=== PATIENT | male | born 1960 | race Caucasian/White ===

== ENCOUNTER 2018-06-18 21:35 | Outpatient (REF) | payer SELFPAY ==
[2018-06-18 22:22] LABS: ALT 47 U/L (12-78); AST 26 U/L (15-37); Alkaline Phosphatase 77 U/L (46-116); Anion Gap 10.1 mmol/L (3-11); BUN 24 mg/dL (7-18); CO2 26.9 mmol/L (21.0-32.0); CREATININE 0.89 mg/dL (0.70-1.30); Calcium 8.9 mg/dL (8.5-10.1); Chloride 103 mmol/L (98-107); Cholesterol 207 mg/dL (50-200); Glucose 129 mg/dL (70-100); HDL Cholesterol 41 mg/dL (40-60); LDL CHOLESTEROL 149 mg/dL (<100); Potassium 3.9 mmol/L (3.5-5.1); Sodium 140 mmol/L (136-145); Total Protein 7.4 g/dL (6.4-8.2); Triglyceride 91 mg/dL (30-150)
== END 2018-06-18 21:55 ==
LOC: NCHCN 21:35
PROVIDERS: PCP Specialist/Technologist Athletic Trainer; Visit Provider Physician Assistant Medical
DX: R73.01 Impaired fasting glucose (principal); I10 Essential (primary) hypertension
CPT/HCPCS: 80053; 80061; 83721

== ENCOUNTER 2021-02-03 21:49 | Outpatient (REF) | payer SELFPAY ==
[2021-02-03 21:13] LABS: Hemoglobin A1C 5.7 % (<5.7)
[2021-02-03 21:19] LABS: ALT 43 U/L (16-63); AST 40 U/L (15-37); Albumin 2.4 g/dL (3.4-5.0); Alkaline Phosphatase 84 U/L (46-116); Anion Gap 9.2 mmol/L (3-11); BUN 18 mg/dL (7-18); Bilirubin, Total 0.4 mg/dL (0.2-1.0); CO2 26.8 mmol/L (21.0-32.0); CREATININE 0.9 mg/dL (0.70-1.30); Calcium 8.8 mg/dL (8.5-10.1); Chloride 103 mmol/L (98-107); Glucose 85 mg/dL (74-106); Magnesium 1.9 mg/dL (1.8-2.4); Potassium 3.8 mmol/L (3.5-5.1); Sodium 139 mmol/L (136-145); Total Protein 5.8 g/dL (6.4-8.2)
== END 2021-02-03 21:50 | disposition home or self-care (01) ==
LOC: NCHCN 21:49
PROVIDERS: PCP Specialist/Technologist Athletic Trainer; Visit Provider Physician Assistant Medical
DX: I10 Essential (primary) hypertension (principal); R73.01 Impaired fasting glucose
CPT/HCPCS: 80053; 83036; 83735

== ENCOUNTER 2021-03-08 15:09 | Outpatient (REF) | payer SELFPAY ==
[2021-03-08 19:24] LABS: Abs Immature Grans 0.07 10^3/uL (0.0-0.06); Absolute Basophil Count 0.13 10^3/uL (0.0-0.2); Absolute Eosinophil Count 0.23 10^3/uL (0.0-0.7); Absolute Lymphocyte Count 2.04 10^3/uL (1.2-3.4); Absolute Monocyte Count 1.14 10^3/uL (0.1-0.8); Absolute Neutrophil Count 10.59 10^3/uL (1.2-6.7); Basophils % 0.9; Eosinophils % 1.6; HCT 53.5 % (40.0-50.0); HGB 17.7 g/dL (13.5-17.5); Immature Grans % 0.5; Lymphocytes % 14.4; MCH 29.6 pg (27.0-33.0); MCHC 33.1 % (32.0-36.0); MCV 89.6 fL (80-95); MPV 11.1 fL (8.0-11.0); Neutrophils % 74.6; Nucleated RBC 0 %; Platelet Count 372 10^3/uL (130-400); RBC 5.97 10^6/uL (4.36-5.78); RDW 13.3 % (11.8-14.1); RDW-SD 43.8 fL; WBC 14.19 10^3/uL (4.4-10.8)
[2021-03-08 20:01] LABS: ALT 36 U/L (16-63); AST 39 U/L (15-37); Alkaline Phosphatase 78 U/L (46-116); Anion Gap 7.6 mmol/L (3-11); BUN 14 mg/dL (7-18); Bilirubin, Total 0.7 mg/dL (0.2-1.0); CO2 27.4 mmol/L (21.0-32.0); CREATININE 0.8 mg/dL (0.70-1.30); Calcium 8.5 mg/dL (8.5-10.1); Chloride 108 mmol/L (98-107); Glucose 165 mg/dL (74-106); Potassium 4.3 mmol/L (3.5-5.1); Sodium 143 mmol/L (136-145); Total Protein 5.3 g/dL (6.4-8.2)
[2021-03-10 17:01] LABS: COVID-19 RT-PCR UVMMC Result Negative (Negative)
== END 2021-03-08 15:10 | disposition home or self-care (01) ==
LOC: NCHCN 15:09
PROVIDERS: PCP Specialist/Technologist Athletic Trainer; Visit Provider Physician Assistant Medical
DX: Z20.822 Contact with and (suspected) exposure to COVID-19 (principal); R05.9 Cough, unspecified; R53.83 Other fatigue; E88.09 Other disorders of plasma-protein metabolism, not elsewhere classified
CPT/HCPCS: 80053; U0003; 85025

== ENCOUNTER 2021-03-24 08:43 | Outpatient (REF) | payer SELFPAY ==
[2021-03-25 13:53] LABS: Bilirubin Negative (Negative); Blood Trace-intact (Negative); Clarity Clear (Clear); Glucose Negative (Negative); Ketones Negative (Negative); Leukocyte Esterase Negative (Negative); Nitrite Negative (Negative); Specific Gravity 1.025 (1.005-1.025); Urobilinogen 0.2 EU/dL (Up TO 0.2)
== END 2021-03-24 08:44 | disposition home or self-care (01) ==
LOC: NCHCN 08:43
PROVIDERS: PCP Specialist/Technologist Athletic Trainer; Visit Provider Physician Assistant Medical
DX: E88.09 Other disorders of plasma-protein metabolism, not elsewhere classified (principal)
CPT/HCPCS: 81003; 81015

== ENCOUNTER 2021-05-12 02:21 | Outpatient (CLI) | payer SELFPAY ==
[2021-05-12 07:59] LABS: Bilirubin Negative (Negative); Blood Small (Negative); Clarity Clear (Clear); Glucose Negative (Negative); Ketones Negative (Negative); Leukocyte Esterase Negative (Negative); Nitrite Negative (Negative); Specific Gravity >= 1.030 (1.005-1.025); Urobilinogen 0.2 EU/dL (Up TO 0.2)
[2021-05-12 08:00] LABS: Absolute Basophil Count 0.14 10^3/uL (0.0-0.2); Absolute Eosinophil Count 0.44 10^3/uL (0.0-0.7); Absolute Lymphocyte Count 2.36 10^3/uL (1.2-3.4); Absolute Monocyte Count 1.21 10^3/uL (0.1-0.8); Basophils % 1.2; Eosinophils % 3.8; HCT 52.9 % (40.0-50.0); HGB 17.3 g/dL (13.5-17.5); Immature Grans % 0.9; Lymphocytes % 20.3; MCH 29.8 pg (27.0-33.0); MCHC 32.7 % (32.0-36.0); MPV 9.7 fL (8.0-11.0); Monocytes % 10.4; Neutrophils % 63.4; Nucleated RBC 0 %; Platelet Count 388 10^3/uL (130-400); RBC 5.81 10^6/uL (4.36-5.78); RDW 13.3 % (11.8-14.1); RDW-SD 45.1 fL; WBC 11.64 10^3/uL (4.4-10.8)
[2021-05-12 08:01] LABS: Absolute Neutrophil Count 7.38 10^3/uL (1.2-6.7)
[2021-05-12 08:11] LABS: Bacteria Rare HPF (Negative); C & S Indicated? No; Casts Negative LPF (Negative); Crystals Negative HPF (Negative); Epithelial Cells Rare HPF (Negative); Mucus Trace (Negative); WBC 0-2 HPF (0-5)
[2021-05-12 08:18] LABS: Hemoglobin A1C 5.4 % (<5.7)
[2021-05-12 09:54] LABS: ALT 39 U/L (16-63); AST 34 U/L (15-37); Albumin 1.8 g/dL (3.4-5.0); Alkaline Phosphatase 82 U/L (46-116); Anion Gap 4.9 mmol/L (3-11); BUN 18 mg/dL (7-18); Bilirubin, Total 0.4 mg/dL (0.2-1.0); CO2 30.1 mmol/L (21.0-32.0); CREATININE 1.1 mg/dL (0.70-1.30); Calcium 8.4 mg/dL (8.5-10.1); Chloride 104 mmol/L (98-107); Folate 9.7 ng/mL (8.6-20.0); Glucose 109 mg/dL (74-106); Magnesium 1.9 mg/dL (1.8-2.4); Potassium 4.7 mmol/L (3.5-5.1); Sodium 139 mmol/L (136-145); Total Protein 5.3 g/dL (6.4-8.2); Vitamin B12 566 pg/mL (193-986)
[2021-05-12 10:20] LABS: FREE T4 1.01 ng/dL (0.76-1.46)
[2021-05-12 16:59] LABS: CRP, High Sensitivity 1.92 mg/L (See Note)
[2021-05-12 17:16] LABS: T3,Free 4.3 pg/mL (2.8-5.3)
[2021-05-13 17:01] LABS: Lipoprotein (a) 184 nmol/L (<75)
[2021-05-14 11:03] LABS: Homocysteine 10.2 umol/L (5.0-13.9)
== END 2021-05-12 02:22 | disposition home or self-care (01) ==
LOC: LBO 02:28
PROVIDERS: PCP Specialist/Technologist Athletic Trainer; Visit Provider Naturopath
DX: E78.5 Hyperlipidemia, unspecified (principal); R00.0 Tachycardia, unspecified; R25.2 Cramp and spasm; R31.29 Other microscopic hematuria
CPT/HCPCS: 36415; 80053; 83090; 83695; 86141; 81003; 81015; 82607; 82746; 83036; 83735; 84439; 84443; 84481; 85025

== ENCOUNTER 2021-07-19 09:32 | Outpatient (REF) | payer SELFPAY | END 2021-07-19 09:33 | disposition home or self-care (01) | LOC: LBN 09:32 | PROVIDERS: PCP Specialist/Technologist Athletic Trainer; Visit Provider Naturopath ==

== ENCOUNTER 2021-07-19 10:37 | Outpatient (CLI) | payer SELFPAY ==
[2021-07-19 15:19] LABS: HCT 51.3 % (40.0-50.0); MCH 29.8 pg (27.0-33.0); MCHC 33.1 % (32.0-36.0); MCV 89.8 fL (80-95); MPV 9.9 fL (8.0-11.0); Platelet Count 374 10^3/uL (130-400); RBC 5.71 10^6/uL (4.36-5.78); RDW 13.6 % (11.8-14.1); RDW-SD 45.1 fL; WBC 15.32 10^3/uL (4.4-10.8)
[2021-07-19 15:25] LABS: Bilirubin Negative (Negative); Blood Trace-intact (Negative); Clarity Clear (Clear); Glucose Negative (Negative); Ketones Negative (Negative); Leukocyte Esterase Negative (Negative); Nitrite Negative (Negative); Specific Gravity >= 1.030 (1.005-1.025); Urobilinogen 0.2 EU/dL (Up TO 0.2); pH 6.5 (5-8)
[2021-07-19 15:37] LABS: Bacteria Few HPF (Negative); Epithelial Cells Few HPF (Negative)
[2021-07-19 15:38] LABS: C & S Indicated? Yes; Casts Negative LPF (Negative); Crystals Negative HPF (Negative); Mucus Negative (Negative)
[2021-07-19 15:39] LABS: Prothrombin Time 10.4 sec (9.3-11.0)
[2021-07-19 16:00] LABS: D-Dimer 853 ng/mlFEU (<500)
[2021-07-19 17:31] LABS: ALT 29 U/L (16-63); AST 28 U/L (15-37); Albumin 1.7 g/dL (3.4-5.0); Alkaline Phosphatase 96 U/L (46-116); Anion Gap 5.1 mmol/L (3-11); BUN 21 mg/dL (7-18); Bilirubin, Total 0.2 mg/dL (0.2-1.0); CO2 29.9 mmol/L (21.0-32.0); CREATININE 0.9 mg/dL (0.70-1.30); Calcium 8.3 mg/dL (8.5-10.1); Chloride 107 mmol/L (98-107); Glucose 87 mg/dL (74-106); Potassium 4.7 mmol/L (3.5-5.1); Sodium 142 mmol/L (136-145); Total Protein 5.1 g/dL (6.4-8.2)
[2021-07-19 17:42] LABS: Creatinine,Urine 80.78 mg/dL
[2021-07-19 17:44] LABS: Bilirubin, Direct 0.1 mg/dL (0.0-0.2)
[2021-07-19 17:49] LABS: CREATININE 0.9 mg/dL (0.70-1.30); Total Volume 2400 ml
[2021-07-19 17:50] LABS: Creatinine Clearance Urine 150 mls/min (97-137)
[2021-07-19 17:54] LABS: Total Volume 2400 ml
[2021-07-19 17:55] LABS: COMMENT (LAB VIEW ONLY) 79.01 mg/dL; PROTEIN 536.6 mg/dL; Prot/Crea Ur Ratio 6.79
[2021-07-21 10:03] LABS: C3 Complement 125 mg/dL (81-157); C4 Complement 33 mg/dL (13-39)
[2021-07-21 15:31] LABS: ANA Interpretation Negative (Negative)
[2021-07-21 15:38] LABS: Albumin Excretion Rate 5239 mcg/min (<20); Albumin, 24hr, U 7545 mg/24 h (<30); Urine Volume 2400 mL
[2021-07-21 15:53] LABS: Albumin 45.6 % (55.8-66.1); Comment (See Note); Total Protein 5.1 g/dL (6.3-8.2)
[2021-07-21 15:54] LABS: Albumin, Urine % 68.4 %; Globulins, Urine % 31.6 %; Immunotyping, Urine (See Note); Total Protein Urine 808 mg/dL (See Note)
[2021-07-21 16:36] LABS: Immunotyping, Serum (See Note)
== END 2021-07-19 10:38 | disposition home or self-care (01) ==
LOC: LBO 10:38
PROVIDERS: PCP Specialist/Technologist Athletic Trainer; Visit Provider Naturopath
DX: N04.9 Nephrotic syndrome with unspecified morphologic changes (principal)
CPT/HCPCS: 36415; 80048; 80076; 84156; 84166; 85027; 86335; 81003; 81015; 81050; 82043; 82565; 82575; 84155; 84165; 85379; 85610; 86038; 86160; 86320; 87086

== ENCOUNTER 2021-07-27 04:42 | Outpatient (CLI) | payer SELFPAY ==
[2021-07-27 09:09] LABS: PROTEIN 529.3 mg/dL; Prot/Crea Ur Ratio 5.53
[2021-07-27 10:23] LABS: ALT 33 U/L (16-63); AST 36 U/L (15-37); Albumin 1.6 g/dL (3.4-5.0); Alkaline Phosphatase 78 U/L (46-116); Anion Gap 4.4 mmol/L (3-11); BUN 27 mg/dL (7-18); Bilirubin, Direct 0.1 mg/dL (0.0-0.2); Bilirubin, Total 0.4 mg/dL (0.2-1.0); CO2 30.6 mmol/L (21.0-32.0); Calcium 8.4 mg/dL (8.5-10.1); Chloride 105 mmol/L (98-107); Glucose 102 mg/dL (74-106); Potassium 4.6 mmol/L (3.5-5.1); Sodium 140 mmol/L (136-145)
== END 2021-07-27 04:43 | disposition home or self-care (01) ==
PROVIDERS: PCP Specialist/Technologist Athletic Trainer; Visit Provider Internal Medicine Nephrology
DX: N04.9 Nephrotic syndrome with unspecified morphologic changes (principal)
CPT/HCPCS: 36415; 80048; 80076; 82565; 84156

== ENCOUNTER 2021-08-02 02:50 | Outpatient (CLI) | payer SELFPAY ==
[2021-08-02 11:44] LABS: COMMENT (LAB VIEW ONLY) 47.43 mg/dL; PROTEIN 297.4 mg/dL; Prot/Crea Ur Ratio 6.27
[2021-08-02 12:27] LABS: ALT 32 U/L (16-63); AST 32 U/L (15-37); Albumin 1.6 g/dL (3.4-5.0); Alkaline Phosphatase 75 U/L (46-116); Anion Gap 5.9 mmol/L (3-11); BUN 23 mg/dL (7-18); Bilirubin, Direct 0.1 mg/dL (0.0-0.2); Bilirubin, Total 0.5 mg/dL (0.2-1.0); CO2 29.1 mmol/L (21.0-32.0); CREATININE 0.9 mg/dL (0.70-1.30); Calcium 8.4 mg/dL (8.5-10.1); Chloride 104 mmol/L (98-107); Glucose 98 mg/dL (74-106); Potassium 4.7 mmol/L (3.5-5.1); Sodium 139 mmol/L (136-145); Total Protein 4.9 g/dL (6.4-8.2)
== END 2021-08-02 02:51 | disposition home or self-care (01) ==
LOC: LBO 02:50
PROVIDERS: PCP Specialist/Technologist Athletic Trainer; Visit Provider Internal Medicine Nephrology
DX: N04.9 Nephrotic syndrome with unspecified morphologic changes (principal)
CPT/HCPCS: 36415; 80048; 80076; 82565; 84156

== ENCOUNTER 2021-08-09 02:42 | Outpatient (CLI) | payer SELFPAY ==
[2021-08-09 08:48] LABS: D-Dimer 1351 ng/mlFEU (<500)
[2021-08-09 08:50] LABS: COMMENT (LAB VIEW ONLY) 40.77 mg/dL; PROTEIN 227.3 mg/dL; Prot/Crea Ur Ratio 5.57
[2021-08-09 08:55] LABS: ALT 35 U/L (16-63); AST 34 U/L (15-37); Albumin 1.5 g/dL (3.4-5.0); Alkaline Phosphatase 84 U/L (46-116); Anion Gap 4.6 mmol/L (3-11); BUN 21 mg/dL (7-18); Bilirubin, Direct 0.1 mg/dL (0.0-0.2); Bilirubin, Total 0.5 mg/dL (0.2-1.0); CO2 30.4 mmol/L (21.0-32.0); Calcium 8.2 mg/dL (8.5-10.1); Chloride 104 mmol/L (98-107); Glucose 108 mg/dL (74-106); Potassium 4.4 mmol/L (3.5-5.1); Sodium 139 mmol/L (136-145); Total Protein 4.9 g/dL (6.4-8.2)
== END 2021-08-09 02:43 | disposition home or self-care (01) ==
LOC: LBO 02:43
PROVIDERS: Naturopath; PCP Specialist/Technologist Athletic Trainer; Visit Provider Internal Medicine Nephrology
DX: R79.1 Abnormal coagulation profile (principal); N04.9 Nephrotic syndrome with unspecified morphologic changes
CPT/HCPCS: 36415; 80048; 80076; 82565; 84156; 85379

== ENCOUNTER 2021-08-17 05:11 | Outpatient (CLI) | payer SELFPAY ==
[2021-08-17 13:26] LABS: ALT 34 U/L (16-63); AST 32 U/L (15-37); Albumin 1.5 g/dL (3.4-5.0); Alkaline Phosphatase 83 U/L (46-116); BUN 14 mg/dL (7-18); Bilirubin, Direct 0.1 mg/dL (0.0-0.2); Bilirubin, Total 0.6 mg/dL (0.2-1.0); COMMENT (LAB VIEW ONLY) 43.72 mg/dL; CREATININE 0.9 mg/dL (0.70-1.30); Calcium 8.1 mg/dL (8.5-10.1); Chloride 104 mmol/L (98-107); Glucose 87 mg/dL (74-106); PROTEIN 260.8 mg/dL; Potassium 4.5 mmol/L (3.5-5.1); Prot/Crea Ur Ratio 5.96; Sodium 138 mmol/L (136-145); Total Protein 4.7 g/dL (6.4-8.2)
== END 2021-08-17 05:12 | disposition home or self-care (01) ==
PROVIDERS: PCP Specialist/Technologist Athletic Trainer; Visit Provider Internal Medicine Nephrology
DX: N04.9 Nephrotic syndrome with unspecified morphologic changes (principal)
CPT/HCPCS: 36415; 80048; 80076; 82565; 84156

== ENCOUNTER 2021-08-23 14:40 | Outpatient (CLI) | payer SELFPAY ==
[2021-08-24 09:23] LABS: Kappa Free Light Chain 2.64 mg/dL (0.33-1.94); Lambda Free Light Chain 7.07 mg/dL (0.57-2.63)
== END 2021-08-23 14:41 | disposition home or self-care (01) ==
PROVIDERS: PCP Specialist/Technologist Athletic Trainer; Visit Provider Internal Medicine Nephrology
DX: N04.9 Nephrotic syndrome with unspecified morphologic changes (principal)
CPT/HCPCS: 36415; 83883

== ENCOUNTER 2021-08-30 14:34 | Outpatient (REF) | payer SELFPAY ==
[2021-08-30 15:00] LABS: INR 1.1 (0.9-1.1); Prothrombin Time 10.9 sec (9.3-11.0)
[2021-08-30 15:19] LABS: ALT 31 U/L (16-63); AST 30 U/L (15-37); Albumin 1.5 g/dL (3.4-5.0); Alkaline Phosphatase 90 U/L (46-116); Anion Gap 4.8 mmol/L (3-11); BUN 21 mg/dL (7-18); Bilirubin, Direct 0.1 mg/dL (0.0-0.2); Bilirubin, Total 0.3 mg/dL (0.2-1.0); CO2 29.2 mmol/L (21.0-32.0); CREATININE 1.1 mg/dL (0.70-1.30); Chloride 105 mmol/L (98-107); Glucose 116 mg/dL (74-106); Potassium 4.1 mmol/L (3.5-5.1); Sodium 139 mmol/L (136-145); Total Protein 4.8 g/dL (6.4-8.2)
[2021-08-30 15:28] LABS: D-Dimer 1576 ng/mlFEU (<500)
[2021-08-30 15:43] LABS: PROTEIN > 1000.0 mg/dL
== END 2021-08-30 14:35 | disposition home or self-care (01) ==
LOC: LBO 14:34
PROVIDERS: PCP Specialist/Technologist Athletic Trainer; Visit Provider Naturopath
DX: E85.81 Light chain (AL) amyloidosis (principal); Z51.81 Encounter for therapeutic drug level monitoring
CPT/HCPCS: 80048; 80076; 82565; 84156; 85379; 85610

== ENCOUNTER 2021-09-06 21:57 | Outpatient (REF) | payer SELFPAY ==
[2021-09-06 19:43] LABS: Abs Immature Grans 0.08 10^3/uL (0.0-0.06); Absolute Lymphocyte Count 2.94 10^3/uL (1.2-3.4); Absolute Monocyte Count 1.38 10^3/uL (0.1-0.8); Eosinophils % 4.1; HCT 49.7 % (40.0-50.0); HGB 16.1 g/dL (13.5-17.5); Immature Grans % 0.6; Lymphocytes % 20.2; MCH 29.8 pg (27.0-33.0); MCHC 32.4 % (32.0-36.0); MCV 92 fL (80-95); MPV 10.5 fL (8.0-11.0); Monocytes % 9.5; Neutrophils % 64.6; Platelet Count 377 10^3/uL (130-400); RDW 14.3 % (11.8-14.1); WBC 14.54 10^3/uL (4.4-10.8)
[2021-09-06 19:49] LABS: Absolute Basophil Count 0.15 10^3/uL (0.0-0.2); Absolute Neutrophil Count 9.39 10^3/uL (1.2-6.7)
[2021-09-06 20:00] LABS: ALT 35 U/L (16-63); AST 36 U/L (15-37); Albumin 1.4 g/dL (3.4-5.0); Alkaline Phosphatase 82 U/L (46-116); Anion Gap 3.9 mmol/L (3-11); BUN 24 mg/dL (7-18); Bilirubin, Total 0.3 mg/dL (0.2-1.0); CO2 30.1 mmol/L (21.0-32.0); CREATININE 1.1 mg/dL (0.70-1.30); Calcium 8.1 mg/dL (8.5-10.1); Chloride 106 mmol/L (98-107); Glucose 89 mg/dL (74-106); LDH 255 U/L (85-227); NT-proBNP 1118 pg/mL (<300); Potassium 4.4 mmol/L (3.5-5.1); Sodium 140 mmol/L (136-145); Total Protein 4.7 g/dL (6.4-8.2)
[2021-09-08 13:27] LABS: Albumin 45.6 % (55.8-66.1); Albumin g/dL 2.2 g/dL (3.6-5.2); Total Protein 4.8 g/dL (6.3-8.2)
[2021-09-08 14:01] LABS: Beta-2-Microglobulin 2.69 mcg/mL
== END 2021-09-06 21:58 | disposition home or self-care (01) ==
LOC: NCHCN 21:57
PROVIDERS: PCP Specialist/Technologist Athletic Trainer; Visit Provider Physician Assistant Medical
DX: E85.9 Amyloidosis, unspecified (principal); I44.7 Left bundle-branch block, unspecified; Z79.01 Long term (current) use of anticoagulants; R80.9 Proteinuria, unspecified
CPT/HCPCS: 80053; 82232; 83615; 83880; 84165; 85025

== ENCOUNTER 2021-09-07 02:27 | Outpatient (CLI) | payer SELFPAY ==
[2021-09-07 15:25] LABS: Troponin I 72 ng/L (<or=60)
[2021-09-08 15:28] LABS: Albumin, Urine % 76.5 %; Albumin, Urine mg/dL 805 mg/dL; Globulins, Urine % 23.5 %; Globulins, Urine mg/dL 247 mg/dL; Immunotyping, Urine (See Note); Total Protein Urine 1052 mg/dL (See Note)
== END 2021-09-07 02:28 | disposition home or self-care (01) ==
PROVIDERS: PCP Specialist/Technologist Athletic Trainer; Visit Provider Physician Assistant Medical
DX: I44.7 Left bundle-branch block, unspecified (principal); R80.9 Proteinuria, unspecified; E85.9 Amyloidosis, unspecified; Z79.01 Long term (current) use of anticoagulants
CPT/HCPCS: 36415; 84156; 84166; 86335; 84484

== ENCOUNTER → 2021-10-14 02:07 | Outpatient (CLI) | payer SELFPAY ==
--- NOTE | 2021-10-14 14:00 | DI.US_ITS ---
APPROVED REPORT EXAM: Comprehensive 2D, Doppler, and color-flow Echocardiogram Patient Location: [facility]Patient Mill Set Up: Nano [facility]CS (AE) Indications: Amyloid Light chain nephropathy, Other Information Study Quality: Adequate Conclusion Normal left ventricular wall thickness and chamber size. Estimated ejection fraction is 60%. Wall m otion is normal Normal right ventricular size and systolic function Both atria are normal in size There is no structural or hemodynamically significant valvular disease Dilated ascending aorta measuring 4.25 cm Wall motion Left Ventricle The left ventricle is normal size. The left ventricular systolic function is normal. The left ventric ular ejection fraction is within the normal range. There is normal left ventricular wall thickness. T here is normal LV segmental wall motion. There is no ventricular septal defect visualized. LVEF is 60 %. Right Ventricle Right ventricle is grossly normal in size. Right ventricular systolic function is grossly normal. Atria The left atrium size is normal. The right atrium size is normal. The interatrial septum is intact wit h no evidence for an atrial septal defect. Aortic Valve The aortic valve is normal in structure. Aortic valve is trileaflet. There is no aortic valvular sten osis. There is no aortic valvular stenosis. No aortic regurgitation is present. Mitral Valve The mitral valve is normal in structure. No evidence of mitral valve stenosis. Trace mitral regurgita tion. Tricuspid Valve The tricuspid valve is normal in structure. There is no tricuspid valve stenosis. Trace tricuspid reg urgitation. Unable to assess PA pressure. Pulmonic Valve The pulmonary valve is normal in structure. There is no pulmonic valvular stenosis. There is no pulmo cathi valvular regurgitation. Great Vessels The aortic root is normal in size. The ascending aorta is moderately dilated. Aortic arch is normal i n caliber. IVC is normal in size and collapses >50% with inspiration. Pericardium There is no pericardial effusion. 2D Dimensions IVSD d PLAX 1.21 cm M: 0.6-1.2 LV Vol A2C d MOD 143.4 mL LVPW d PLAX 1.21 cm M: 0.6 - 1.2 LV Vol A4C d MOD 109.5 mL LVID d PLAX 4.85 cm M: 4.2 - 5.8 LA vol/ BSA A2C s A-L 29.2 mL/m2 LVDs 3.30 cm M: 2.5 - 4.0 LA vol/ BSA A4C s A-L 12.1 mL/m2 Ao Root d 3.58 cm M: 3.1 - 3.7 LA Vol/ BSA Biplane s A-L 21.4 mL/m2 RA Area A4C 15.55 cm2 LA Area A4C s MOD 11.85 cm2 RA Vol/ BSA A4C s A-L 15.4 mL/m2 LA Area A2C s MOD 21.01 cm2 Ao Asc Diam d 4.25 cm M: 2.6 - 3.4 LV EF A4C MOD 60.6 % LV EF Teichholz 58.8 % LV EF A2C MOD 58.4 % LVEF (Arevalo's) 58.95 % M: 52 - 72 LV EF Biplane MOD 58.9 % LV Volume 90.19 mL M: 62 - 150 SV 74.52 mL LV Volume Index 38.54 mL/m2 M: 34 - 74 SV Index 31.81 mL/m2 LV Vol Biplane MOD 126.4 mL FS 31.15 % M-Mode TAPSE 1.77 cm (M/F) >1.7 LV Diastology MV E' medial 0.093 (>0.07 m/s) MV E' lateral 0.059 (>0.1 m/s) Aortic Valve LVOT Area 3.40 cm2 AoV Area Vmax 2.51 cm2 LVOT Vmax 1.24 m/s AoV Area/ BSA (Vmax) 1.07 cm2/m2 LVOT Mean Philippe. 0.82 m/s AURELIO Mean Philippe. 2.24 cm2 LVOT Peak Grad 6.1 mmHg AURELIO Mean Philippe. Index 0.96 cm2/m2 LVOT Mean Grad 3.1 mmHg LVOT VTI 0.230 m LVOT Diam s 2.05 cm AoV Vmax 1.67 m/s Velocity Ratio 0.74 AoV Mean Philippe. 1.24 m/s AoV Peak Grad 11.2 mmHg LVOT SV 78.18 mL AoV Mean Grad 6.7 mmHg AoV VTI 0.277 m AoV Area VTI 2.82 cm2 AoV Area/ BSA (VTI) 1.20 cm/m2 Mitral Valve MV VTI 0.165 m MV Area VTI 4.75 (4.0-6.0 cm2) Pulmonary Valve PV Vmax 1.28 (0.5-1.5 m/s) RVOT Peak Gr. 3.21 mmHg PV Peak Grad 6.5 mmHg RVOT Mean Gr. 1.35 mmHg PV Mean Grad 3.3 mmHg RVOT VTI 0.136 m PV VTI 0.207 m RVOT Vmax 0.90 m/s
--- NOTE | 2021-10-14 15:00 | DI.RAD_ITS ---
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 COMPARISON: No exams were available for comparison FINDINGS: MEDIASTINUM: Normal. HEART: Normal. PULMONARY VASCULATURE: Normal. LUNGS: Clear. PLEURAL SPACE: No pleural effusion or pneumothorax. BONE:Unremarkable for age. IMPRESSION: No acute abnormality. DATA REPOSITORY: RADIATION DOSE DELIVERED:
== END ==
PROVIDERS: PCP Specialist/Technologist Athletic Trainer; Visit Provider Internal Medicine Hematology & Oncology
DX: E85.81 Light chain (AL) amyloidosis (principal)
CPT/HCPCS: 71046; 93306

== ENCOUNTER 2022-01-06 13:31 | Inpatient (IN) | payer SELFPAY ==
[2022-01-06] VITALS (88 sets, daily range): BP systolic 111–155; BP diastolic 67–97; PULSE 88–115; RESP 14–35; TEMP 37.1–38.7; O2SAT 92–96
--- NOTE | 2022-01-06 13:30 | RT.EKG_ITS ---
APPROVED REPORT Exam: Resting ECG Reason for Exam: chest pain Patient Location: E HR:108 bpm ECG Measurements Heart Rate 108 AXIS NJ 188 P 10 QRSd 132 QRS -10 QT 362 T 171 QTc 485 Conclusion Sinus tachycardia...rate> 99 Left bundle branch block...QRSd>120, broad/notched R ST elevation secondary to IVCD...Multiple VCG criteria. Sinus. LBBB. No old EKG to compare.
--- NOTE | 2022-01-06 14:00 | DI.CT_ITS ---
Exam(s) CT CHEST PE CTA EXAM: CT CHEST PE CTA CLINICAL HISTORY: recent covid, sob, right chest pain. TECHNIQUE: Imaging Protocol: CT angiography of the chest was performed using pulmonary embolus shaylee col. Multi planar reconstructions were performed. CONTRAST MATERIAL: Intravenous: Omnipaque 350 Contrast volume: 85 cc COMPARISON: No exams were available for comparison FINDINGS: CHEST: PULMONARY ARTERIES: There is significant intraluminal filling defect in right lower lobe pulmonary ar marni consistent with acute pulmonary embolus. There is some infiltrate and volume loss distally at t his level. Also small right pleural effusion. There is also a similar size small left pleural effus ion and atelectasis in both lung bases. There are no obvious filling defects in left lung pulmonary arteries. LUNGS: As above.. Small bilateral pleural effusions. MEDIASTINUM: There is no hilar nor mediastinal adenopathy. Visualized thyroid unremarkable. CARDIAC: Heart size is upper normal. There is no pericardial effusion.Caliber of the thoracic aorta is within normal limits. No dissection. Ventricular ratio is 1/1. there is no contrast reflux into t he intrahepatic IVC. PARTIALLY VISUALIZED UPPERMOST ABDOMEN: Small hypodense benign-appearing 1 cm nodule in the lateral l imb of the left adrenal gland noted. This is probably a benign adenoma. Right adrenal gland unremar kable. No splenomegaly. OSSEOUS: No significant osseous lesions.Benign intraosseous hemangioma is noted in what appears to be T11 or T12 vertebral body. No fractures.. IMPRESSION: 1. Positive for acute pulmonary emboli in right lower lobe pulmonary artery..Some infiltrate and volu me loss distal to this as well as small pleural effusion. 2. Small pleural effusion also seen on the opposite-left side. No obvious pulmonary embolus on the l eft side. 3. Ventricular ratio is 1: 1. Other findings as above. Study 1st read by [facility]. Final report called by myself to the ER physician 01/07/2022 8:45 a.m.. Unexpected Findings as noted above. An unexpected finding is one that is unexpected and non-urgent wi th regard to the clinical indication for the examination but will come with a radiologist recommendat ion for follow up. Critical findings as dealt with above. RADIATION DOSE DELIVERED: 575.37mGy.cm Total DLP DATA REPOSITORY: All CT scans at this facility are submitted to the National Radiology Data Registry (NRDR) Dose Index Registry (DIR) with the [employer] (ACR). RADIATION OPTIMIZATION: All CT scans at this facility use at least one of these dose optimization te chniques: automated exposure control; mA and/or kV adjustment per patient size (includes targeted exa ms where dose is matched to clinical indication); or iterative reconstruction.
--- NOTE | 2022-01-06 14:00 | RT.EKG_ITS ---
APPROVED REPORT Exam: Resting ECG Reason for Exam: chest pain Patient Location: E HR:115 bpm ECG Measurements Heart Rate 115 AXIS MS 152 P -45 QRSd 132 QRS -8 QT 384 T 155 QTc 533 Conclusion Sinus or ectopic atrial tachycardia...P axis (-45,135), rate> 99 Left bundle branch block...QRSd>120, broad/notched R Probable anterolateral infarct, age indeterm...Q >35mS, T neg, V2-V6,I,aVL. Sinus. LBBB. No significant change from previous EKG.
[2022-01-06 14:29] LABS: Lactate 1.1 mmol/L (0.6-1.4)
[2022-01-06 14:30] LABS: Abs Immature Grans 0.26 10^3/uL (0.0-0.06); Absolute Lymphocyte Count 1.03 10^3/uL (1.2-3.4); Absolute Monocyte Count 2.34 10^3/uL (0.1-0.8); Basophils % 0.3; HCT 39.1 % (40.0-50.0); HGB 13.1 g/dL (13.5-17.5); Immature Grans % 1.4; Lymphocytes % 5.4; MCH 30.9 pg (27.0-33.0); MCHC 33.5 % (32.0-36.0); MCV 92 fL (80-95); MPV 11.2 fL (8.0-11.0); Monocytes % 12.3; Neutrophils % 79.6; Platelet Count 203 10^3/uL (130-400); RBC 4.24 10^6/uL (4.36-5.78); RDW 16.7 % (11.8-14.1); RDW-SD 54.9 fL; WBC 19.05 10^3/uL (4.4-10.8)
[2022-01-06 14:32] LABS: Absolute Basophil Count 0.06 10^3/uL (0.0-0.2); Absolute Eosinophil Count 0.19 10^3/uL (0.0-0.7); Absolute Neutrophil Count 15.16 10^3/uL (1.2-6.7)
[2022-01-06] MEDS: Albuterol/Ipratropium 3 ML UPD VIAL UPD (14:47)
[2022-01-06] MEDS: Dexamethasone 4 MG/ML VIAL 6 MG IVP (14:47)
[2022-01-06] MEDS: Normal Saline 500 ML IV (14:47)
[2022-01-06] MEDS: fentaNYL 100 MCG/2 ML VIAL 50 MCG IVP (14:50)
[2022-01-06 15:01] LABS: Diff Comment Diff Reviewed; RBC Morphology Normal
[2022-01-06] MEDS: Acetaminophen 500 MG TAB 1000 MG PO (15:09)
--- NOTE | 2022-01-06 15:15 | RT.EKG_ITS ---
APPROVED REPORT Exam: Resting ECG Reason for Exam: chest pain Patient Location: E HR:93 bpm ECG Measurements Heart Rate 93 AXIS NE 198 P 28 QRSd 140 QRS -10 QT 409 T 148 QTc 510 Conclusion Sinus rhythm...normal P axis, V-rate 60- 99 Borderline prolonged NE interval...NE >197, V-rate 91-120 Left bundle branch block...QRSd>120, broad/notched R. Sinus. No STEMi. No significant change from previous EKG.
[2022-01-06] MEDS: cefTRIAXone 2 GM/50 ML BAG IVPB (15:17)
--- NOTE | 2022-01-06 15:22 | ED.GENADUL_ITS ---
Discharge Plan Disposition Patient Disposition: [facility] INPATIENT Condition: Serious Discharge Details Clinical Impression: Elevated troponin, Pneumonia due to COVID-19 virus Admit Date/Time: 01/06/22 19:47 Admit Provider: Stef Gorman Attending Provider: Stef Gorman Primary Care Provider: Johnnie Frost ED Provider: Geeta Marie Discharge Data Discharge Date/Time-TO BE ENTERED AT DEPARTURE: 01/07/22 00:25 Medical Decision Making White blood patient is tachycardic, tachypneic, and has leukocytosis, 19,000 I have initiated ceftriaxone, patient likely has pneumonia and will likely need doxycycline or azithromycin, I suspect this is probably acute community-acquired pneumonia The differential includes pulmonary embolism versus COVID exacerbation He had approximately 2 weeks out from his initial presentation and was actually improved until last evening Pending chemistry patient will go to CTA for further evaluation and assessment He is received normal saline, Tylenol, fentanyl for discomfort, DuoNeb, and Solu-Medrol Reviewed transition to Geeta Duran nurse practitioner pending CTA and disposition Medical Records Medical records reviewed: Yes I reviewed the patient's medical records. Lab Data Lab results reviewed: Yes I reviewed the patient's lab results. HPI General Date/Time Provider Initiated Documentation: 01/06/22 13:49 . HPI Narrative: This 61-year-old male with history of recent diagnosis of amyloidosis receiving chemotherapy from [facility], [facility] presents with reports of shortness of breath and right-sided chest pain. Of note he had COVID-19 and received monoclonal ant ibody approximately 2 weeks ago. He did receive his chemotherapy last Monday. He states last evening he started with fever, chills, and right-sided chest pain with shortness of breath. He states that he was otherwise improving. He denies any new calf pain or swelling. He does have baseline peripheral edema secondary to his amyloidosis. 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 He de nies history of pulmonary embolism in the past but he was told that he was at increased risk for coagulopathy and was on Coumadin for a period of time, he is not currently anticoagulated. He denies any recent surgeries, flights, long drives. Related Data Home Medications Medication Instructions Recorded Confirmed acyclovir 400 mg tablet 1 tab PO BID 01/06/22 01/06/22 dexamethasone 4 mg tablet 40 mg PO QWEEK chemotherapy 01/06/22 01/06/22 montelukast 10 mg tablet 1 tab PO QWEEK 01/06/22 01/06/22 torsemide 10 mg tablet 1 tab PO 1XD 01/06/22 01/06/22 Allergies Allergy/AdvReac Type Severity Reaction Status Date / Time No Known Allergies Allergy Unverified 01/06/22 22:16 General Stated Complaint: RespSymp BETO: 2 Review of Systems All systems reviewed & are unremarkable except as noted in HPI and below PFSH All Active Problems (Updated 01/08/22 @ 17:22 by Chema Conde MD) Pulmonary embolus, right (Acute) COVID-19 (Acute) Community acquired pneumonia (Acute) Amyloidosis (Chronic) Elevated troponin (Acute) Pneumonia due to COVID-19 virus (Acute) Medical History 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 Exam Const General: cooperative and acute distress HENMT Head: normal to inspection Eyes Pupils: PERRL Resp Effort & Inspection: respiratory distress Other: Coarse lung sounds bilaterally Cardio Rate: tachycardic Rhythm: regular rhythm GI Inspection: normal to inspection Other: Nontender abdominal exam Skin General skin exam: no rashes or lesions noted Neuro General: patient alert and patient oriented x3 Extrem Other: peripheral Edema to bilateral lower extremities, nontender, neurovascularly intact Course Vital Signs Vital signs: Vital Signs Temperature 38.7 C H 01/06/22 13:42 Pulse 115 H 01/06/22 13:42 Respiratory Rate 25 H 01/06/22 13:42 Blood Pressure 155/97 H 01/06/22 13:42 Pulse Oximetry 96 01/06/22 13:42 Temperature 38.7 C H 01/06/22 13:42 Temperature Source Oral 01/06/22 13:42 Pulse 115 H 01/06/22 13:42 Respiratory Rate 25 H 01/06/22 13:42 Respiratory Effort 01/06/22 14:50 Respiratory Depth Normal 01/06/22 14:50 Blood Pressure 155/97 H 01/06/22 13:42 Blood Pressure Position Supine 01/06/22 13:42 Pulse Oximetry 96 01/06/22 13:42 Oxygen Delivery Method Room Air 01/06/22 13:42 Oxygen Flow Rate 0 01/06/22 13:42 Pain Level 7 01/06/22 13:42 Lab/Test Results Lab/Test Results: 01/06/22 14:45 Blood Blood Culture - Pending 01/06/22 14:23 Blood Blood Culture - Pending Laboratory Tests Range/Units 01/06/22 01/06/22 01/06/22 14:23 14:23 14:23 WBC (4.4-10.8) 10^3/uL 19.05 H RBC (4.36-5.78) 10^6/uL 4.24 L Hgb (13.5-17.5) g/dL 13.1 L Hct (40.0-50.0) % 39.1 L MCV (80-95) fL 92 MCH (27.0-33.0) pg 30.9 MCHC (32.0-36.0) % 33.5 RDW (11.8-14.1) % 16.7 H Plt Count (130-400) 10^3/uL 203 MPV (8.0-11.0) fL 11.2 H Immature Gran % 1.4 Neutrophils % 79.6 Lymphocytes % 5.4 Monocytes % 12.3 Eosinophils % 1.0 Basophils % 0.3 Nucleated RBC % (0.0-0.3) % 0.0 Absolute Neutrophils (1.2-6.7) 10^3/uL 15.16 H Absolute Lymphocytes (1.2-3.4) 10^3/uL 1.03 L Absolute Monocytes (0.1-0.8) 10^3/uL 2.34 H Absolute Eosinophils (0.0-0.7) 10^3/uL 0.19 Absolute Basophils (0.0-0.2) 10^3/uL 0.06 RBC Morphology Normal VBG Lactate (0.6-1.4) mmol/L 1.1 Sodium Cancelled Potassium Cancelled Chloride Cancelled Carbon Dioxide Cancelled Anion Gap Cancelled BUN Cancelled Creatinine Cancelled Est GFR (CKD-EPI 2020) Cancelled Glucose Cancelled Calcium Cancelled Total Bilirubin Cancelled AST Cancelled ALT Cancelled Alkaline Phosphatase Cancelled Troponin I Total Protein Cancelled Albumin Cancelled Range/Units 01/06/22 14:23 WBC (4.4-10.8) 10^3/uL RBC (4.36-5.78) 10^6/uL Hgb (13.5-17.5) g/dL Hct (40.0-50.0) % MCV (80-95) fL MCH (27.0-33.0) pg MCHC (32.0-36.0) % RDW (11.8-14.1) % Plt Count (130-400) 10^3/uL MPV (8.0-11.0) fL Immature Gran % Neutrophils % Lymphocytes % Monocytes % Eosinophils % Basophils % Nucleated RBC % (0.0-0.3) % Absolute Neutrophils (1.2-6.7) 10^3/uL Absolute Lymphocytes (1.2-3.4) 10^3/uL Absolute Monocytes (0.1-0.8) 10^3/uL Absolute Eosinophils (0.0-0.7) 10^3/uL Absolute Basophils (0.0-0.2) 10^3/uL RBC Morphology VBG Lactate (0.6-1.4) mmol/L Sodium Cancelled Potassium Cancelled Chloride Cancelled Carbon Dioxide Cancelled Anion Gap Cancelled BUN Cancelled Creatinine Cancelled Est GFR (CKD-EPI 2020) Cancelled Glucose Cancelled Calcium Cancelled Total Bilirubin Cancelled AST Cancelled ALT Cancelled Alkaline Phosphatase Cancelled Troponin I Cancelled Total Protein Cancelled Albumin Cancelled Sign Out Sign Out Data: Sign Out Comment: pending cmp, troponin, cta chest, iv abx, dispo Last updated by Marj Ruiz PA at 01/06/22 15:51
[2022-01-06 15:50] LABS: Bilirubin Negative (Negative); Blood Moderate (Negative); Clarity Clear (Clear); Glucose Negative (Negative); Ketones Negative (Negative); Leukocyte Esterase Negative (Negative); Nitrite Negative (Negative); Specific Gravity 1.025 (1.005-1.025); Urobilinogen 0.2 EU/dL (Up TO 0.2); pH 5.5 (5-8)
--- NOTE | 2022-01-06 16:04 | W.EDPROG ---
Date of service: 01/06/22 Time of Service: 16:04 Medical Decision Making Care assumed from provider (ELVIS Arredondo) Please see their initial HPI, PE, and documentation. Discussed patient details and case and pending workup and disposition. Patient is hemodynamically stable, and alert and oriented. At the time of signout pending CTA, repeat CMP, repeat troponin and disposition. COVID test ordered and doxycycline IV piggyback. Questionable pneumonia and sepsis. Possible disposition transfer to [facility] due to patient's having oncology care there. In short patient is a 61-year-old male with right-sided chest pain history of AmiLloydnosis, and recent COVID infection 2 weeks ago who received monoclonal antibodies. He presents here with shortness of breath, tachycardia, fever. 164: Initial troponin is 105, repeat CMP shows sodium 138 potassium 3.5, chloride 104, BUN 20 creatinine 1.2 GFR 69 glucose 117 calcium 7.4. 1742: CT chest performed, is pending right now, repeat troponin. Patient is requesting to eat. 1802: Discussed results thus far with patient and family. They report that their oncology Dr. Ennis with heme-onc at [facility] contacted them earlier and requested that they present to [facility] ER but there was confusion. In communication. I did discuss the intent to attempt transfer to [facility] which would be the ideal hospital as patient is set to have treatment tomorrow and his oncology team is through [facility]. I did discuss however though that this is dependent on capacity. They verbalized understanding. I did discuss the elevated troponin. Patient did not take aspirin today and has not been on aspirin. 1811: Repeat troponin 103 which is down from 105, CT shows no PE, bilateral consolidation and groundglass opacity cannot rule out infiltrates or pneumonia. Small bilateral pleural effusions and trace pericardial effusion. We will contact [facility] to request transfer. 1812: [facility] transfer center contacted. They are only accepting emergent transfers at this time. However, they will call me back 1899: Discussed case with Dr. Johnnie Reynolds at [facility], He recommends admission here and contact with Dr. Ennis [facility], no acceptance at [facility] at this time. 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 1939: Spoke with Dr. Gorman regarding patient case and details he agrees to accept patient for admission and will place admission orders. Medical Records Medical records reviewed: Yes I reviewed the patient's medical records. Medical records narrative: From previous chart: This 61-year-old male with history of recent diagnosis of amyloidosis receiving chemotherapy from [facility], hypertension presents with reports of shortness of breath and right-sided chest pain.? Of note he had COVID-19 and received monoclonal antibody approximately 2 weeks ago.? He did receive his chemotherapy last Monday.? He states last evening he started with fever, chills, and right-sided chest pain with shortness of breath.? He states that he was otherwise improving.? He denies any new calf pain or swelling.? He does have baseline peripheral edema secondary to his amyloidosis.? 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 He denies history of pulmonary embolism in the past but he was told that he was at increased risk for coagulopathy and was on Coumadin for a period of time, he is not currently anticoagulated.? He denies any recent surgeries, flights, long drives. Imaging Data Radiologic Study: Imaging: CT Scan Radiologist's impression: FINDINGS: Pulmonary arteries: Normal. No pulmonary emboli. Aorta: Unremarkable. No aortic aneurysm. No aortic dissection. Lungs: Bilateral heterogeneous consolidation and ground-glass opacities of the posterior lower lobes most likely compatible with compressive atelectasis. However, pulmonary infiltrates cannot be completely excluded. No suspicious parenchymal lung nodule. Pleural spaces: Bilateral small pleural effusions. Heart: No significant coronary artery calcifications. No cardiomegaly. Trace pericardial effusion. Lymph nodes: Unremarkable. No enlarged lymph nodes. Bones/joints: Vertebral hemangiomas within T9 and T12. No acute fracture. No suspicious osseous lesion. Soft tissues: Unremarkable. IMPRESSION: 1. No evidence of pulmonary embolism. 2. Bilateral heterogeneous consolidation and ground-glass opacities of the posterior lower lobes most likely compatible with compressive atelectasis. However, pulmonary infiltrates cannot be completely excluded. 3. Bilateral small pleural effusions. Trace pericardial effusion. Thank you for allowing us to participate in the care of your patient. Dictated and Authenticated by: Leopoldo Stephenson MD Lab Data Lab results reviewed: Yes I reviewed the patient's lab results. Labs: 01/06/22 14:45 Blood Blood Culture - Pending 01/06/22 14:23 Blood Blood Culture - Pending Laboratory Tests Range/Units 01/06/22 01/06/22 01/06/22 14:23 14:23 14:23 WBC (4.4-10.8) 10^3/uL 19.05 H RBC (4.36-5.78) 10^6/uL 4.24 L Hgb (13.5-17.5) g/dL 13.1 L Hct (40.0-50.0) % 39.1 L MCV (80-95) fL 92 MCH (27.0-33.0) pg 30.9 MCHC (32.0-36.0) % 33.5 RDW (11.8-14.1) % 16.7 H Plt Count (130-400) 10^3/uL 203 MPV (8.0-11.0) fL 11.2 H Immature Gran % 1.4 Neutrophils % 79.6 Lymphocytes % 5.4 Monocytes % 12.3 Eosinophils % 1.0 Basophils % 0.3 Nucleated RBC % (0.0-0.3) % 0.0 Absolute Neutrophils (1.2-6.7) 10^3/uL 15.16 H Absolute Lymphocytes (1.2-3.4) 10^3/uL 1.03 L Absolute Monocytes (0.1-0.8) 10^3/uL 2.34 H Absolute Eosinophils (0.0-0.7) 10^3/uL 0.19 Absolute Basophils (0.0-0.2) 10^3/uL 0.06 RBC Morphology Normal VBG Lactate (0.6-1.4) mmol/L 1.1 Sodium Cancelled Potassium Cancelled Chloride Cancelled Carbon Dioxide Cancelled Anion Gap Cancelled BUN Cancelled Creatinine Cancelled Est GFR (CKD-EPI 2020) Cancelled Glucose Cancelled Calcium Cancelled Total Bilirubin Cancelled AST Cancelled ALT Cancelled Alkaline Phosphatase Cancelled Troponin I Total Protein Cancelled Albumin Cancelled Urine Color (Yellow) Urine Clarity (Clear) Urine pH (5-8) Ur Specific [place] (1.005-1.025) Urine Protein (Negative) mg/dL Urine Ketones (Negative) mg/dL Urine Blood (Negative) Urine Nitrite (Negative) Urine Bilirubin (Negative) Urine Urobilinogen (Up TO 0.2) EU/dL Ur Leukocyte Esterase (Negative) Urine Glucose (Negative) mg/dL Range/Units 01/06/22 01/06/22 01/06/22 14:23 14:47 15:30 WBC (4.4-10.8) 10^3/uL RBC (4.36-5.78) 10^6/uL Hgb (13.5-17.5) g/dL Hct (40.0-50.0) % MCV (80-95) fL MCH (27.0-33.0) pg MCHC (32.0-36.0) % RDW (11.8-14.1) % Plt Count (130-400) 10^3/uL MPV (8.0-11.0) fL Immature Gran % Neutrophils % Lymphocytes % Monocytes % Eosinophils % Basophils % Nucleated RBC % (0.0-0.3) % Absolute Neutrophils (1.2-6.7) 10^3/uL Absolute Lymphocytes (1.2-3.4) 10^3/uL Absolute Monocytes (0.1-0.8) 10^3/uL Absolute Eosinophils (0.0-0.7) 10^3/uL Absolute Basophils (0.0-0.2) 10^3/uL RBC Morphology VBG Lactate (0.6-1.4) mmol/L Sodium Cancelled Cancelled Potassium Cancelled Cancelled Chloride Cancelled Cancelled Carbon Dioxide Cancelled Cancelled Anion Gap Cancelled Cancelled BUN Cancelled Cancelled Creatinine Cancelled Cancelled Est GFR (CKD-EPI 2020) Cancelled Cancelled Glucose Cancelled Cancelled Calcium Cancelled Cancelled Total Bilirubin Cancelled Cancelled AST Cancelled Cancelled ALT Cancelled Cancelled Alkaline Phosphatase Cancelled Cancelled Troponin I Cancelled Cancelled Total Protein Cancelled Cancelled Albumin Cancelled Cancelled Urine Color (Yellow) Yellow Urine Clarity (Clear) Clear Urine pH (5-8) 5.5 Ur Specific [place] (1.005-1.025) 1.025 Urine Protein (Negative) mg/dL >=300 H Urine Ketones (Negative) mg/dL Negative Urine Blood (Negative) Moderate H Urine Nitrite (Negative) Negative Urine Bilirubin (Negative) Negative Urine Urobilinogen (Up TO 0.2) EU/dL 0.2 Ur Leukocyte Esterase (Negative) Negative Urine Glucose (Negative) mg/dL Negative Sign Out Sign Out Data: Sign Out Comment: pending cmp, troponin, cta chest, iv abx, dispo Last updated by Marj Ruiz PA at 01/06/22 15:51 Discharge Plan Disposition Patient Disposition: [facility] INPATIENT Condition: Serious Discharge Details Clinical Impression: Elevated troponin, Pneumonia due to COVID-19 virus Primary Care Provider: Johnnie Frost ED Provider: Geeta Marie [place] Meds and New Rx's Prescriptions: No Action torsemide 10 mg tablet 1 tab PO 1XD Label Comments: TAKE 1 TABLET BY MOUTH ONCE DAILY THEN AN ADDITIONAL 1 TABLET NEEDED FOR A 3 TO 5 LB WEIGHT GAIN acyclovir 400 mg tablet 1 tab PO BID Label Comments: TAKE 1 TABLET BY MOUTH TWICE DAILY dexamethasone 4 mg Tablet 40 mg PO QWEEK montelukast 10 mg tablet 1 tab PO QWEEK Label Comments: TAKE 1 TABLET BY MOUTH ON THE DAY BEFORE, THE DAY OF AND DAY AFTER CHEMOTHERAPY
[2022-01-06 16:12] LABS: Bacteria Negative HPF (Negative); C & S Indicated? No; Casts 3-5 Hyaline LPF (Negative); Crystals Negative HPF (Negative); Epithelial Cells Negative HPF (Negative); Mucus Trace (Negative); WBC 0-2 HPF (0-5)
[2022-01-06 16:26] LABS: Source Nasal/Nares
[2022-01-06] MEDS: DOXYCYCLINE 100 MG in Normal Saline 100 ML IVPB (16:42)
[2022-01-06 16:45] LABS: ALT 15 U/L (16-63); AST 21 U/L (15-37); Albumin 1.1 g/dL (3.4-5.0); Alkaline Phosphatase 76 U/L (46-116); Anion Gap 8.7 mmol/L (3-11); BUN 20 mg/dL (7-18); Bilirubin, Total 0.4 mg/dL (0.2-1.0); CO2 25.3 mmol/L (21.0-32.0); CREATININE 1.2 mg/dL (0.70-1.30); Calcium 7.4 mg/dL (8.5-10.1); Chloride 104 mmol/L (98-107); Estimated GFR 69.23 (mL/min/1.73m2); Glucose 117 mg/dL (74-106); Potassium 3.5 mmol/L (3.5-5.1); Sodium 138 mmol/L (136-145)
[2022-01-06 16:48] LABS: Troponin I 105 ng/L (<or=60)
[2022-01-06] MEDS: Aspirin 81 MG CHEW 243 MG CH (17:18)
[2022-01-06 17:22] LABS: COVID-19 PCR POSITIVE (Negative)
[2022-01-06] MEDS: Omnipaque 350 MG/ML 100 ML BTL IJ (17:33)
--- NOTE | 2022-01-06 18:05 | DI.VRAD_ITS ---
PROCEDURE INFORMATION: Exam: CTA Chest With Contrast Exam date and time: 01/06/2022 5:10 PM Age: 61 years old Clinical indication: Other: Recent covid, SOB, right chest pain TECHNIQUE: Imaging protocol: Computed tomographic angiography of the chest with contrast. 3D rendering (Not supervised by radiologist): MIP and/or 3D reconstructed images were created by the technologist. Contrast material: 350; Contrast volume: 85 ml; Contrast route: INTRAVENOUS (IV); COMPARISON: CR XR CHEST 2V PA LATERAL 10/14/2021 2:33 PM FINDINGS: Pulmonary arteries: Normal. No pulmonary emboli. Aorta: Unremarkable. No aortic aneurysm. No aortic dissection. Lungs: Bilateral heterogeneous consolidation and ground-glass opacities of the posterior lower lobes most likely compatible with compressive atelectasis. However, pulmonary infiltrates cannot be completely excluded. No suspicious parenchymal lung nodule. Pleural spaces: Bilateral small pleural effusions. Heart: No significant coronary artery calcifications. No cardiomegaly. Trace pericardial effusion. Lymph nodes: Unremarkable. No enlarged lymph nodes. Bones/joints: Vertebral hemangiomas within T9 and T12. No acute fracture. No suspicious osseous lesion. Soft tissues: Unremarkable. IMPRESSION: 1. No evidence of pulmonary embolism. 2. Bilateral heterogeneous consolidation and ground-glass opacities of the posterior lower lobes most likely compatible with compressive atelectasis. However, pulmonary infiltrates cannot be completely excluded. 3. Bilateral small pleural effusions. Trace pericardial effusion. Dictated and Authenticated by: Leopoldo Stephenson MD. Ordering:YEHUDA Mcmahan MD
[2022-01-06 18:11] LABS: Troponin I 103 ng/L (<or=60)
[2022-01-06 18:46] LABS: Procalcitonin < 0.1 ng/mL
--- NOTE | 2022-01-06 19:45 | HPE_ITS ---
Date of service: 01/06/22 Time of Service: 19:45 Assessment and Plan Assessment and plan (1) Pneumonia due to COVID-19 virus: Start date: 01/06/22 Status: Acute Assessment and plan: This is a 61-year-old gentleman admitted with worsening respiratory symptoms and atypical chest discomfort with mildly elevated troponin level which is trending downward. He is on treatment for possible secondary pneumonia with COVID-19 pneumonia known for the last 2 weeks. He was not hypoxic but remdesivir was initiated with dexamethasone IV. The patient is chronically on a larger dose of dexamethasone weekly with his chemotherapy for amyloidosis. He will miss his amyloidosis treatment this week. He feels better on treatment and is still not requiring oxygen. We will continue to trend lab including troponins with cardiac monitoring. He is unvaccinated but did receive Evusheld and a dose of IV monoclonal antibodies at the beginning of his 2-week history of COVID-19 infection. He will be placed on isolation. Patient is a full code. (2) Elevated troponin: Start date: 01/06/22 Status: Acute Assessment and plan: No history of CAD in the past and chest pain atypical with this most likely strain from his acute process. Trend troponins and as outpatient once stable consider further cardiac evaluation. This bump in troponin is most likely secondary to stress with his acute respiratory status with COVID-19 infection. Consider more aggressive therapy for his hypertension with patient previously on atenolol low-dose along with lisinopril and hydrochlorothiazide with hydrochlorothiazide held at this time. Consider metoprolol and consider need for statin long-term. (3) Amyloidosis: Status: Chronic Assessment and plan: Hold chemotherapy this week and may need to discuss follow-up plans with he matology oncology at [facility] prior to discharge. Patient has been held 1 week of chemotherapy prior to this admission because of his acute COVID-19 infection. 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 (4) Essential hypertension: Assessment and plan: Reinitiate outpatient medical therapy and consider additional therapy if needed during this hospital stay. Patient's home medication need to be reconciled. Patient does not appear to be on statin therapy. 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 He had an elevated WBC and a mildly elevated troponin therefore was admitted for more aggressive treatment of his COVID-19 pneumonia and possible secondary bacterial pneumonia though his procalcitonin was normal. He has been on dexamethasone as part of his treatment of amyloidosis but was started on dexamethasone and remdesivir upon admission. He also was given Rocephin and Zithromax. He has a 2-week history of positive COVID test presented with fever initially and having a fever this event. CTA did not show any pulmonary emboli. He did not receive the vaccine having had COVID early during the pandemic and was given Evusheld instead and more recently did receive the monoclonal antibodies when he was diagnosed with COVID-19 2 weeks ago. The patient is having no chest discomfort at the time I visited and felt better with less shortness of breath. He was not requiring oxygen and was still not hypoxic. He was placed on Lovenox for DVT prophylaxis and because of his COVID- 19 infection. Review of systems otherwise unrevealing. Patient's had no previous history of coronary artery disease but does have a history of hypertension with his home medications unclear but appearing to include hydrochlorothiazide with atenolol and low-dose lisinopril. Upon admission he had his atenolol dose increased and hydrochlorothiazide held to avoid diuresis with low-dose lisinopril continued. Patient's hematology oncologist at [facility] is Dr. Ennis. He can be contacted about patient missing his chemotherapy dose this week with the patient missing a previous dose when first diagnosed with COVID-19 two weeks ago. Review of Systems Narrative: 13 point review of systems otherwise unrevealing or stable. Patient's weight has been stable. [facility] All Active Problems (Updated 01/07/22 @ 12:53 by Stef Gorman) Amyloidosis (Chronic) Elevated troponin (Acute) Pneumonia due to COVID-19 virus (Acute) Medical History 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 Meds Allergies and Home Medications Allergies Allergy/AdvReac Type Severity Reaction Status Date / Time No Known Allergies Allergy Unverified 01/06/22 22:16 Home Medications Medication Instructions Recorded Confirmed Type acyclovir 400 mg tablet 1 tab PO BID 01/06/22 01/06/22 History dexamethasone 4 mg tablet 40 mg PO QWEEK chemotherapy 01/06/22 01/06/22 History montelukast 10 mg tablet 1 tab PO QWEEK 01/06/22 01/06/22 History torsemide 10 mg tablet 1 tab PO 1XD 01/06/22 01/06/22 History Exam Narrative Exam Narrative: General: Patient appears appropriate for age, alert and oriented x3 and in no acute distress. HEENT: Normocephalic, eyes with pupils equal reactive light symmetrically, extraocular movement tact and sclera anicteric. Oropharynx with moist mucosa a nd fair dentition. Neck: Supple without JVD. Back: Stooped posture without CVA tenderness. Lungs: Fair aeration with bronchovesicular breath sound diffusely but no focalizing rales or rhonchi. No expiratory wheeze. Abdomen: Soft to palpation with normal contour, nontender. No hepatosplenomegaly. Bowel sounds positive all quadrants. Genitalia/rectal: Exam deferred. Skin: Darkly tanned, moist with patient slightly sweaty and warm. Normal turgor. Texture. Extremities: Without clubbing, cyanosis or pitting edema. Peripheral pulses intact. Neuro: Cranial nerves II through XII grossly intact, no focal motor deficits or tremor. Psych: Normal mood and affect. No abnormal thought processes. Remote and recent memory intact. Lymph: No appreciable general lymphadenopathy. Results Imaging Imaging Studies: Exam: CTA Chest With Contrast Exam date and time: 01/06/2022 5:10 PM Age: 61 years old Clinical indication: Other: Recent covid, SOB, right chest pain TECHNIQUE: Imaging protocol: Computed tomographic angiography of the chest with contrast. 3D rendering (Not supervised by radiologist): MIP and/or 3D reconstructed images were created by the technologist. Contrast material: 350; Contrast volume: 85 ml; Contrast route: INTRAVENOUS (IV);? COMPARISON: CR XR CHEST 2V PA LATERAL 10/14/2021 2:33 PM FINDINGS: Pulmonary arteries: Normal. No pulmonary emboli. Aorta: Unremarkable. No aortic aneurysm. No aortic dissection. Lungs: Bilateral heterogeneous consolidation and ground-glass opacities of the posterior lower lobes most likely compatible with compressive atelectasis. However, pulmonary infiltrates cannot be completely excluded. No suspicious parenchymal lung nodule. Pleural spaces: Bilateral small pleural effusions. Heart: No significant coronary artery calcifications. No cardiomegaly. Trace pericardial effusion. Lymph nodes: Unremarkable. No enlarged lymph nodes. Bones/joints: Vertebral hemangiomas within T9 and T12. No acute fracture. No suspicious osseous lesion. Soft tissues: Unremarkable. IMPRESSION: 1. No evidence of pulmonary embolism.? 2. Bilateral heterogeneous consolidation and ground-glass opacities of the posterior lower lobes most likely compatible with compressive atelectasis. However, pulmonary infiltrates cannot be completely excluded. 3. Bilateral small pleural effusions.? Trace pericardial effusion. Labs Result diagrams: 01/07/22 07:47 01/07/22 07:47 Labs: Laboratory Results - last 24 hr 01/06/22 01/06/22 01/06/22 14:23 14:23 14:23 WBC 19.05 H RBC 4.24 L Hgb 13.1 L Hct 39.1 L MCV 92 MCH 30.9 MCHC 33.5 RDW 16.7 H Plt Count 203 MPV 11.2 H Immature Gran % 1.4 Neutrophils % 79.6 Lymphocytes % 5.4 Monocytes % 12.3 Eosinophils % 1.0 Basophils % 0.3 Nucleated RBC % 0.0 Absolute Neutrophils 15.16 H Absolute Lymphocytes 1.03 L Absolute Monocytes 2.34 H Absolute Eosinophils 0.19 Absolute Basophils 0.06 RBC Morphology Normal VBG Lactate 1.1 Sodium Cancelled Potassium Cancelled Chloride Cancelled Carbon Dioxide Cancelled Anion Gap Cancelled BUN Cancelled Creatinine Cancelled Est GFR (CKD-EPI 2020) Cancelled Glucose Cancelled Calcium Cancelled Total Bilirubin Cancelled AST Cancelled ALT Cancelled Alkaline Phosphatase Cancelled Troponin I Total Protein Cancelled Albumin Cancelled Procalcitonin Urine Color Urine Clarity Urine pH Ur Specific [place] Urine Protein Urine Ketones Urine Blood Urine Nitrite Urine Bilirubin Urine Urobilinogen Ur Leukocyte Esterase Urine RBC Urine WBC Ur Epithelial Cells Urine Crystals Urine Bacteria Urine Casts Urine Mucus Ur Culture Indicated? Urine Glucose COVID-19 Source SARS-CoV-2 (PCR) 01/06/22 01/06/22 01/06/22 14:23 14:47 15:08 WBC RBC Hgb Hct MCV MCH MCHC RDW Plt Count MPV Immature Gran % Neutrophils % Lymphocytes % Monocytes % Eosinophils % Basophils % Nucleated RBC % Absolute Neutrophils Absolute Lymphocytes Absolute Monocytes Absolute Eosinophils Absolute Basophils RBC Morphology VBG Lactate Sodium Cancelled Cancelled Potassium Cancelled Cancelled Chloride Cancelled Cancelled Carbon Dioxide Cancelled Cancelled Anion Gap Cancelled Cancelled BUN Cancelled Cancelled Creatinine Cancelled Cancelled Est GFR (CKD-EPI 2020) Cancelled Cancelled Glucose Cancelled Cancelled Calcium Cancelled Cancelled Total Bilirubin Cancelled Cancelled AST Cancelled Cancelled ALT Cancelled Cancelled Alkaline Phosphatase Cancelled Cancelled Troponin I Cancelled Cancelled 103 H* Total Protein Cancelled Cancelled Albumin Cancelled Cancelled Procalcitonin Urine Color Urine Clarity Urine pH Ur Specific [place] Urine Protein Urine Ketones Urine Blood Urine Nitrite Urine Bilirubin Urine Urobilinogen Ur Leukocyte Esterase Urine RBC Urine WBC Ur Epithelial Cells Urine Crystals Urine Bacteria Urine Casts Urine Mucus Ur Culture Indicated? Urine Glucose COVID-19 Source SARS-CoV-2 (PCR) 01/06/22 01/06/22 01/06/22 15:30 15:55 15:55 WBC RBC Hgb Hct MCV MCH MCHC RDW Plt Count MPV Immature Gran % Neutrophils % Lymphocytes % Monocytes % Eosinophils % Basophils % Nucleated RBC % Absolute Neutrophils Absolute Lymphocytes Absolute Monocytes Absolute Eosinophils Absolute Basophils RBC Morphology VBG Lactate Sodium 138 Potassium 3.5 Chloride 104 Carbon Dioxide 25.3 Anion Gap 8.7 BUN 20 H Creatinine 1.2 Est GFR (CKD-EPI 2020) 69.23 Glucose 117 H Calcium 7.4 L Total Bilirubin 0.4 AST 21 ALT 15 L Alkaline Phosphatase 76 Troponin I 105 H* Total Protein 5.0 L Albumin 1.1 L Procalcitonin < 0.1 Urine Color Yellow Urine Clarity Clear Urine pH 5.5 Ur Specific [place] 1.025 Urine Protein >=300 H Urine Ketones Negative Urine Blood Moderate H Urine Nitrite Negative Urine Bilirubin Negative Urine Urobilinogen 0.2 Ur Leukocyte Esterase Negative Urine RBC 3-5 H Urine WBC 0-2 Ur Epithelial Cells Negative Urine Crystals Negative Urine Bacteria Negative Urine Casts 3-5 Hyaline Urine Mucus Trace Ur Culture Indicated? No Urine Glucose Negative COVID-19 Source SARS-CoV-2 (PCR) 01/06/22 16:09 WBC RBC Hgb Hct MCV MCH MCHC RDW Plt Count MPV Immature Gran % Neutrophils % Lymphocytes % Monocytes % Eosinophils % Basophils % Nucleated RBC % Absolute Neutrophils Absolute Lymphocytes Absolute Monocytes Absolute Eosinophils Absolute Basophils RBC Morphology VBG Lactate Sodium Potassium Chloride Carbon Dioxide Anion Gap BUN Creatinine Est GFR (CKD-EPI 2020) Glucose Calcium Total Bilirubin AST ALT Alkaline Phosphatase Troponin I Total Protein Albumin Procalcitonin Urine Color Urine Clarity Urine pH Ur Specific [place] Urine Protein Urine Ketones Urine Blood Urine Nitrite Urine Bilirubin Urine Urobilinogen Ur Leukocyte Esterase Urine RBC Urine WBC Ur Epithelial Cells Urine Crystals Urine Bacteria Urine Casts Urine Mucus Ur Culture Indicated? Urine Glucose COVID-19 Source Nasal/Nares SARS-CoV-2 (PCR) POSITIVE A* Last Vital Signs Temp 38.7 C H 01/06/22 13:42 Pulse 103 H 01/06/22 16:46 Resp 28 H 01/06/22 17:00 BP 114/79 01/06/22 16:46 Pulse Ox 96 01/06/22 13:42
[2022-01-06 20:47] LABS: Troponin I 100 ng/L (<or=60)
[2022-01-06] MEDS: REMDESIVIR 200 MG in Normal Saline 250 ML 250 MG IVPB (22:12)
[2022-01-06] MEDS: Aspirin 81 MG CHEW CH (22:13)
[2022-01-07] VITALS (13 sets, daily range): BP systolic 134–162; BP diastolic 79–99; PULSE 93–117; RESP 16–22; TEMP 36.8–37.7; O2SAT 89–985
[2022-01-07 02:36] LABS: Troponin I 81 ng/L (<or=60)
[2022-01-07] MEDS: Enoxaparin 40 MG/0.4 ML SYR SC (06:18)
[2022-01-07 08:09] LABS: Abs Immature Grans 0.33 10^3/uL (0.0-0.06); HGB 12.4 g/dL (13.5-17.5); MCH 31.2 pg (27.0-33.0); MCHC 34.4 % (32.0-36.0); MCV 91 fL (80-95); MPV 11.4 fL (8.0-11.0); Platelet Count 230 10^3/uL (130-400); RBC 3.98 10^6/uL (4.36-5.78); RDW 16.2 % (11.8-14.1); RDW-SD 52.7 fL
[2022-01-07 08:16] LABS: WBC 26.41 10^3/uL (4.4-10.8)
[2022-01-07 08:35] LABS: ALT 12 U/L (16-63); AST 16 U/L (15-37); Alkaline Phosphatase 71 U/L (46-116); Anion Gap 7.5 mmol/L (3-11); BUN 28 mg/dL (7-18); Bilirubin, Total 0.3 mg/dL (0.2-1.0); CO2 26.5 mmol/L (21.0-32.0); CREATININE 1.2 mg/dL (0.70-1.30); Calcium 8.1 mg/dL (8.5-10.1); Chloride 104 mmol/L (98-107); Estimated GFR 69.23 (mL/min/1.73m2); Glucose 120 mg/dL (74-106); Magnesium 1.8 mg/dL (1.8-2.4); Potassium 3.7 mmol/L (3.5-5.1); Sodium 138 mmol/L (136-145); Total Protein 4.9 g/dL (6.4-8.2)
[2022-01-07 08:40] LABS: Troponin I 80 ng/L (<or=60)
[2022-01-07 08:41] LABS: Absolute Lymphocyte Count 1.58 10^3/uL (1.2-3.4); Absolute Monocyte Count 2.64 10^3/uL (0.1-0.8); Absolute Neutrophil Count 22.18 10^3/uL (1.2-6.7); Bands % 2; Diff Comment Manual Differential; RBC Morphology Normal
[2022-01-07] MEDS: DOXYCYCLINE 100 MG in Normal Saline 100 ML IVPB ×2 (08:57→19:48)
[2022-01-07] MEDS: Aspirin E.C. 81 MG TABEC PO (08:58)
[2022-01-07] MEDS: Normal Saline Flush 10 ML SYR IVP (09:00)
[2022-01-07] MEDS: Enoxaparin 80 MG/0.8 ML SYR 70 MG SC (10:37)
[2022-01-07 12:02] LABS: INR 1.2 (0.9-1.1); PTT Activated 31.5 sec (21.0-27.5); Prothrombin Time 11.6 sec (9.3-11.0)
[2022-01-07 12:12] LABS: D-Dimer 2017 ng/mlFEU (<500)
[2022-01-07 12:35] LABS: C-Reactive Protein 12.91 mg/dL (0.0-0.3); Creatine Kinase 42 U/L (39-308); LDH 275 U/L (85-227)
[2022-01-07 13:33] LABS: Ferritin 1528 ng/mL (26-388)
[2022-01-07] MEDS: cefTRIAXone 2 GM/50 ML BAG IVPB (14:15)
[2022-01-07] MEDS: Acyclovir 400 MG TAB PO ×2 (15:55→21:26)
--- NOTE | 2022-01-07 16:22 | W.PM.PROGNOT ---
Date of Service Date of service: 01/07/22 Time of Service: Assessment and Plan Assessment and plan (1) Pneumonia due to COVID-19 virus: Status: Acute Assessment and plan: Continue Remdesivir, daily dose of dexamethasone has been discontinued as the patient is not hypoxemic. If his inflammatory markers increased despite the Remdesivir or he becomes hypoxemic then Decadron and baricitinib will be added to his regimen. An alternative would be to give him Actemra instead of baricitinib. Professional time spent interviewing and examining patient, discussion of goals of care with hospital team (care management, nursing and consulting professionals) was 30 minutes. (2) Elevated troponin: Start date: 01/06/22 Status: Acute Assessment and plan: Likely secondary to acute pulmonary embolus. Troponin levels have trended down to slightly above the upper limit of normal at 80 ng/L. Shank Faker was off today and will not be available until next Monday. I will perform bedside POCUS echo when I am available (3) Amyloidosis: Status: Chronic Assessment and plan: Hold chemotherapy this week and may need to discuss follow-up plans with hematology oncology at [facility] prior to discharge. Patient has been held 1 week of chemotherapy prior to this admission because of his acute COVID-19 infection. [facility] was called from the ED and is aware of patient being hospitalized. 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 Unfortunately d/t multiple ER admissions and multiple discharges, I have not been able to make the call to [facility] today. (4) Essential hypertension: Assessment and plan: Reinitiate outpatient medical therapy and consider additional therapy if needed during this hospital stay. Patient's home medication need to be reconciled. Patient does not appear to be on statin therapy. Atorvastatin is been added as part of his treatment for COVID-19. Subjective Subjective Interval history since last seen: Patient states he feels better today. Less dyspneic. He is not requiring any oxygen. Still has a cough that is nonproductive. He still tachycardic. CT of his chest last night was missed read as not showing a pulmonary emboli but showed Bilateral heterogeneous consolidation and groundglass opacities of the lower lobes with compressive atelectasis. Small bilateral pleural effusions. CTA was subsequently over read by Dr. Nava as showing an acute pulmonary emboli in the right lower lobe artery with some infiltrates and volume loss distal to this as well as small pleural effusion. No embolus in the left side. Patient was initially treated with DVT prophylactic Lovenox 40 mg daily which was given at 6 AM. Patient was given additional dose of Lovenox 70 mg this morning for total of 110 mg every 12 hours. He remains on Remdesivir for his COVID-pneumonia. He is prophylactically on ceftriaxone and doxycycline for possible concomitant bacterial component. Patient is chronically immunosuppressed for his amyloidosis. Exam Narrative Exam Narrative: Middle-aged white male who has plethoric facial appearance very reddened in the face. He is able to talk in complete paragraphs without dyspnea. Neck is without JVD Lungs with bibasilar rales no rhonchi or wheezing Heart is tachycardic but regular without murmur rub or gallop Abdomen obese soft and nontender Lower extremities no calf tenderness he has a trace of pretibial and pedal edema. No peripheral cyanosis. Negative Homans' sign. Objective Last Vital Signs Temp 37.7 C H 01/07/22 15:57 Pulse 108 H 01/07/22 15:57 Resp 18 01/07/22 15:57 BP 151/91 H 01/07/22 15:57 Pulse Ox 95 01/07/22 15:57 Laboratory Results - last 24 hr 01/06/22 01/06/22 01/06/22 15:08 15:55 15:55 WBC RBC Hgb Hct MCV MCH MCHC RDW Plt Count MPV Immature Gran % Neutrophils % Band Neutrophils % Lymphocytes % Monocytes % Eosinophils % Basophils % Nucleated RBC % Absolute Neutrophils Absolute Lymphocytes Absolute Monocytes Absolute Eosinophils Absolute Basophils RBC Morphology PT INR APTT D-Dimer Sodium 138 Potassium 3.5 Chloride 104 Carbon Dioxide 25.3 Anion Gap 8.7 BUN 20 H Creatinine 1.2 Est GFR (CKD-EPI 2020) 69.23 Glucose 117 H Calcium 7.4 L Magnesium Ferritin Total Bilirubin 0.4 AST 21 ALT 15 L Alkaline Phosphatase 76 Lactate Dehydrogenase Creatine Kinase Troponin I 103 H* 105 H* C-Reactive Protein Total Protein 5.0 L Albumin 1.1 L Procalcitonin < 0.1 COVID-19 Source SARS-CoV-2 (PCR) 01/06/22 01/06/22 01/07/22 16:09 20:15 02:15 WBC RBC Hgb Hct MCV MCH MCHC RDW Plt Count MPV Immature Gran % Neutrophils % Band Neutrophils % Lymphocytes % Monocytes % Eosinophils % Basophils % Nucleated RBC % Absolute Neutrophils Absolute Lymphocytes Absolute Monocytes Absolute Eosinophils Absolute Basophils RBC Morphology PT INR APTT D-Dimer Sodium Potassium Chloride Carbon Dioxide Anion Gap BUN Creatinine Est GFR (CKD-EPI 2020) Glucose Calcium Magnesium Ferritin Total Bilirubin AST ALT Alkaline Phosphatase Lactate Dehydrogenase Creatine Kinase Troponin I 100 H* 81 H* C-Reactive Protein Total Protein Albumin Procalcitonin COVID-19 Source Nasal/Nares SARS-CoV-2 (PCR) POSITIVE A* 01/07/22 01/07/22 01/07/22 07:47 07:47 07:47 WBC 26.41 H* RBC 3.98 L Hgb 12.4 L Hct 36.0 L MCV 91 MCH 31.2 MCHC 34.4 RDW 16.2 H Plt Count 230 MPV 11.4 H Immature Gran % 0.0 Neutrophils % 82.0 Band Neutrophils % 2 Lymphocytes % 6.0 Monocytes % 10.0 Eosinophils % 0.0 Basophils % 0.0 Nucleated RBC % 0.0 Absolute Neutrophils 22.18 H Absolute Lymphocytes 1.58 Absolute Monocytes 2.64 H Absolute Eosinophils 0.00 Absolute Basophils 0.00 RBC Morphology Normal PT INR APTT D-Dimer Sodium 138 Potassium 3.7 Chloride 104 Carbon Dioxide 26.5 Anion Gap 7.5 BUN 28 H Creatinine 1.2 Est GFR (CKD-EPI 2020) 69.23 Glucose 120 H Calcium 8.1 L Magnesium 1.8 Ferritin Total Bilirubin 0.3 AST 16 ALT 12 L Alkaline Phosphatase 71 Lactate Dehydrogenase Creatine Kinase Troponin I 80 H* C-Reactive Protein Total Protein 4.9 L Albumin 1.0 L Procalcitonin COVID-19 Source SARS-CoV-2 (PCR) 01/07/22 01/07/22 11:25 11:25 WBC RBC Hgb Hct MCV MCH MCHC RDW Plt Count MPV Immature Gran % Neutrophils % Band Neutrophils % Lymphocytes % Monocytes % Eosinophils % Basophils % Nucleated RBC % Absolute Neutrophils Absolute Lymphocytes Absolute Monocytes Absolute Eosinophils Absolute Basophils RBC Morphology PT 11.6 H INR 1.2 H APTT 31.5 H D-Dimer 2017 H Sodium Potassium Chloride Carbon Dioxide Anion Gap BUN Creatinine Est GFR (CKD-EPI 2020) Glucose Calcium Magnesium Ferritin 1528 H Total Bilirubin AST ALT Alkaline Phosphatase Lactate Dehydrogenase 275 H Creatine Kinase 42 Troponin I C-Reactive Protein 12.91 H Total Protein Albumin Procalcitonin COVID-19 Source SARS-CoV-2 (PCR)
--- NOTE | 2022-01-07 16:34 | PDOC.CMIN ---
- If Service Date Differs Date of service: 01/07/22 Time of Service: 16:34 Care Management Initial Assess REASON FOR HOSPITALIZATION:: Covid pneumonia, elevated troponin PAST MEDICAL HISTORY/PAST SURGICAL HISTORY:: All Active Problems. Amyloidosis (Chronic). Elevated troponin (Acute). Pneumonia due to COVID-19 virus (Acute). Medical History. 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). Basal cell carcinoma of face. Essential hypertension. Fatty liver. Kidney stone PREVIOUS FUNCTIONAL STATUS/SOCIAL/FAMILY SUPPORTS:: Jong lives in [place] with his , Haleigh. They have four adult children and two grand children. 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 He is independent at baseline. CURRENT FUNCTIONAL STATUS:: CM talked to Jong over the phone, as he is on precautions for Covid. He stated that he is feeling much better than when he arrived. He reported that he is independent in the community and does not expect that he will need any services. 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 CM sent a referral to [employer] for insurance support. CM will continue to follow. ADVANCE DIRECTIVES:: None on file. Has patient been provided with info about the portal/API?: Yes Did the patient sign up for the portal?: Yes (active) CODE STATUS:: Full Code INSURANCE COVERAGE / FINANCIAL ISSUES:: Financial assist 100%, [employer] referral sent for insurance support CURRENT HOME/COMMUNITY SERVICES/EQUIPMENT:: None PRIMARY CARE PHYSICIAN:: No PCP, will need control systems technician follow up POTENTIAL DISCHARGE NEEDS:: call circuit worker follow up PCP, insurance support PATIENT/FAMILY EDUCATION NEEDS:: Review discharge instructions and limitations, discussion of self care needs including ask me three. ANTICIPATED BARRIERS TO DISCHARGE:: No insurance, possible new medications. TRANSPORTATION:: Via private vehicle by his . PLAN:: Jong will return home once medically cleared. He will be driven home by his via private vehicle. He will follow up with his PCP and discharge plan of care. CM will continue to follow.
[2022-01-07] MEDS: Zinc Sulfate 220 MG TAB PO (17:57)
[2022-01-07] MEDS: Acetaminophen 325 MG TAB PO ×2 (17:58→23:14)
[2022-01-07] MEDS: Cholecalciferol (Vitamin D3) 1,000 UNIT TAB 1000 UNITS PO (17:58)
[2022-01-07] MEDS: Ascorbic Acid 500 MG TAB 1000 MG PO (19:47)
[2022-01-07] MEDS: Atorvastatin 40 MG TAB PO (19:48)
[2022-01-07] MEDS: Enoxaparin 120 MG/0.8 ML SYR 110 MG SC (21:26)
[2022-01-07] MEDS: REMDESIVIR 100 MG in Normal Saline 250 ML 250 MG IVPB (21:31)
[2022-01-07 21:41] LABS: Fibrinogen > 1000 mg/dL (171-384)
[2022-01-08] VITALS (11 sets, daily range): BP systolic 134–151; BP diastolic 80–89; PULSE 88–99; RESP 16–19; TEMP 37.2–38.1; O2SAT 95
[2022-01-08] MEDS: DOXYCYCLINE 100 MG in Normal Saline 100 ML IVPB (08:15)
[2022-01-08] MEDS: Torsemide 20 MG TAB 10 MG PO (08:15)
[2022-01-08] MEDS: Acetaminophen 325 MG TAB PO ×3 (08:15→23:34)
[2022-01-08] MEDS: Aspirin E.C. 81 MG TABEC PO (08:16)
[2022-01-08] MEDS: Cholecalciferol (Vitamin D3) 1,000 UNIT TAB 1000 UNITS PO (08:16)
[2022-01-08] MEDS: Acyclovir 400 MG TAB PO ×2 (08:16→20:16)
[2022-01-08] MEDS: Normal Saline Flush 10 ML SYR IVP ×3 (08:16→20:17)
[2022-01-08] MEDS: Zinc Sulfate 220 MG TAB PO (08:16)
[2022-01-08] MEDS: Ascorbic Acid 500 MG TAB 1000 MG PO ×2 (08:16→20:16)
[2022-01-08 09:27] LABS: Abs Immature Grans 0.47 10^3/uL (0.0-0.06); Absolute Monocyte Count 2.96 10^3/uL (0.1-0.8); Basophils % 0.3; Eosinophils % 0.9; HCT 36.9 % (40.0-50.0); HGB 12.4 g/dL (13.5-17.5); Lymphocytes % 4.9; MCH 30.6 pg (27.0-33.0); MCHC 33.6 % (32.0-36.0); MCV 91 fL (80-95); MPV 11.5 fL (8.0-11.0); Monocytes % 12.8; Neutrophils % 79.1; RBC 4.05 10^6/uL (4.36-5.78); RDW 16.7 % (11.8-14.1); RDW-SD 55.4 fL; WBC 23.15 10^3/uL (4.4-10.8)
[2022-01-08 09:40] LABS: Absolute Basophil Count 0.07 10^3/uL (0.0-0.2); Absolute Eosinophil Count 0.21 10^3/uL (0.0-0.7); Absolute Lymphocyte Count 1.13 10^3/uL (1.2-3.4); Absolute Neutrophil Count 18.31 10^3/uL (1.2-6.7)
[2022-01-08 09:44] LABS: Diff Comment Agrees w/ Instrument; Platelet Count 252 10^3/uL (130-400); RBC Morphology Normal
[2022-01-08 09:45] LABS: ALT 10 U/L (16-63); AST 20 U/L (15-37); Albumin 0.9 g/dL (3.4-5.0); Alkaline Phosphatase 66 U/L (46-116); Anion Gap 8.3 mmol/L (3-11); BUN 28 mg/dL (7-18); Bilirubin, Total 0.5 mg/dL (0.2-1.0); C-Reactive Protein 13.42 mg/dL (0.0-0.3); CO2 25.7 mmol/L (21.0-32.0); CREATININE 1.3 mg/dL (0.70-1.30); Calcium 7.6 mg/dL (8.5-10.1); Chloride 104 mmol/L (98-107); Creatine Kinase 34 U/L (39-308); Estimated GFR 62.89 (mL/min/1.73m2); Glucose 96 mg/dL (74-106); Potassium 3.9 mmol/L (3.5-5.1); Sodium 138 mmol/L (136-145)
[2022-01-08] MEDS: Enoxaparin 120 MG/0.8 ML SYR 110 MG SC (09:52)
[2022-01-08 09:54] LABS: D-Dimer 1592 ng/mlFEU (<500)
[2022-01-08 10:29] LABS: Ferritin 1546 ng/mL (26-388)
[2022-01-08] MEDS: cefTRIAXone 2 GM/50 ML BAG IVPB (14:51)
--- NOTE | 2022-01-08 16:24 | W.PM.PROGNOT ---
Date of Service Date of service: 01/08/22 Time of Service: 16:24 Assessment and Plan Assessment and plan (1) Community acquired pneumonia: Status: Acute Assessment and plan: continue MDI bronchodilators along w/ parenteral antibiotics including Rocephin; doxycycline changed to oral as the pharmacy was running out of iv doxycycline and he is able to take oral meds. Encourage use of I.S. and acapella; check sputum cultures and mycoplasma and legionella studies. Professional time spent interviewing and examining patient, discussion of goals of care with hospital team (care management, nursing and consulting professionals) was 30 minutes. (2) COVID-19: Status: Acute Assessment and plan: continue Remdesivir d#3 of 5. no indications for daily dexamethasone as he is not hypoxemic. Patient will need to remain in isolation for 10 days from onset of his symptoms but once his fevers resolve, I plan to switch to oral antibiotics and when he has completed his Remdesivir he can be discharged home to complete oral antibiotics for CAP. (3) Amyloidosis: Status: Chronic Assessment and plan: patient's treatmens are on hold while he is being treated for COVID-19 (4) Elevated troponin: Status: Acute Assessment and plan: secondary to PE. will get formal echo on Monday. (5) Pulmonary embolus, right: Status: Acute Assessment and plan: dc enoxaparin for intiation of apixaban 10 mg bid x 7 days then 5 mg bid for 3 to 6 months Subjective Subjective Interval history since last seen: Mr Copeland is feeling better today, not dyspneic, cough is less productive now. He has had a cough for about one year now w/ intermittent symptoms of sputum. Sometimes his cough has been nonproductive in the past. he had questions about the use of Remdesivir use and renal dysfunction. I went over the incidence of renal dysfunction in Remdesivir and per UpToDate this is 3 to 15%, however we are monitoring his renal function daily and I explained to him that untreated COVID can lead to worsening respiratory function leading to respiratory failure and can lead to worsening renal function. I also explained that I have treated a number of patients w/ chronic kidney disease who have had COVID-19 and treated them w/ Remdesivir w/out worsening their renal function. I think that his chronic cough needs further outpatient evaluation by ENT and/or pulmonary to assess for asthma, COPD, chronic rhinosinusitis, GERD, CAMERON. With respect to his pulmonary embolism, I explained that he needs to be on anticoagulants for 3 to 6 months and his hand rug braider/oncologist will determine when he can come off this. We know that COVID-19 is associated w/ increased risk for thromboembolism, so I am presuming this is the cause for his P.E. I will switch him from lovenox to apixaban tonight. He indicated that in the past he had been on warfarin until specialists in [place] took him off this. I asked as to the reason for warfarin, he says that he had a persistently high d-dimer however all of his ultrasounds and CT scans never showed a embolus in the past. I explained to him that a d-dimer is not specific to a blood clot but can also be elevated by other causes for inflammation such as infections or tumors. It may have been elevated in the past from his amyloidosis. However, his current CT scan does demonstrate a PE to the RLL. Exam Narrative Exam Narrative: Kimani is sitting up in bed watching TV. he appears to be more comfortable, not breathless, not tachypneic and not using his accessory muscles Lungs: right base w/ some rales and expiratory wheezes, upper bryant are clear Heart: RRR, no murmur or rub Abdomen: soft, nontender Legs: no edema or calf tenderness Skin: he has a diffuse erythematous rash over his trunk/back; not present on the arms. I asked him about this, the rash is not puritic. he says that he gets this from time to time and will often flare after his treatments for his amyloidosis. Objective Last Vital Signs Temp 37.6 C H 01/08/22 14:50 Pulse 93 H 01/08/22 14:50 Resp 18 01/08/22 14:50 BP 134/83 01/08/22 14:50 Pulse Ox 95 01/08/22 14:50 Laboratory Results - last 24 hr 01/07/22 01/08/22 01/08/22 11:25 08:55 08:55 WBC 23.15 H RBC 4.05 L Hgb 12.4 L Hct 36.9 L MCV 91 MCH 30.6 MCHC 33.6 RDW 16.7 H Plt Count 252 MPV 11.5 H Immature Gran % 2.0 Neutrophils % 79.1 Lymphocytes % 4.9 Monocytes % 12.8 Eosinophils % 0.9 Basophils % 0.3 Nucleated RBC % 0.0 Absolute Neutrophils 18.31 H Absolute Lymphocytes 1.13 L Absolute Monocytes 2.96 H Absolute Eosinophils 0.21 Absolute Basophils 0.07 RBC Morphology Normal Fibrinogen > 1000 H D-Dimer Sodium 138 Potassium 3.9 Chloride 104 Carbon Dioxide 25.7 Anion Gap 8.3 BUN 28 H Creatinine 1.3 Est GFR (CKD-EPI 2020) 62.89 Glucose 96 Calcium 7.6 L Ferritin 1546 H Total Bilirubin 0.5 AST 20 ALT 10 L Alkaline Phosphatase 66 Creatine Kinase 34 L C-Reactive Protein 13.42 H Total Protein 5.0 L Albumin 0.9 L 01/08/22 08:55 WBC RBC Hgb Hct MCV MCH MCHC RDW Plt Count MPV Immature Gran % Neutrophils % Lymphocytes % Monocytes % Eosinophils % Basophils % Nucleated RBC % Absolute Neutrophils Absolute Lymphocytes Absolute Monocytes Absolute Eosinophils Absolute Basophils RBC Morphology Fibrinogen D-Dimer 1592 H Sodium Potassium Chloride Carbon Dioxide Anion Gap BUN Creatinine Est GFR (CKD-EPI 2020) Glucose Calcium Ferritin Total Bilirubin AST ALT Alkaline Phosphatase Creatine Kinase C-Reactive Protein Total Protein Albumin
[2022-01-08] MEDS: Doxycycline Hyclate 100 MG CAP PO (20:16)
[2022-01-08] MEDS: Atorvastatin 40 MG TAB PO (20:16)
[2022-01-08] MEDS: Apixaban 5 MG TAB 10 MG PO (20:16)
[2022-01-08] MEDS: REMDESIVIR 100 MG in Normal Saline 250 ML 250 MG IVPB (21:57)
[2022-01-09] VITALS (10 sets, daily range): BP systolic 131–147; BP diastolic 82–91; PULSE 78–99; RESP 16–19; TEMP 37.1–37.6; O2SAT 92–98
[2022-01-09 06:30] LABS: Abs Immature Grans 0.31 10^3/uL (0.0-0.06); HCT 32.4 % (40.0-50.0); HGB 10.8 g/dL (13.5-17.5); MCH 30.9 pg (27.0-33.0); MCHC 33.3 % (32.0-36.0); MCV 93 fL (80-95); MPV 11.3 fL (8.0-11.0); Platelet Count 308 10^3/uL (130-400); RBC 3.49 10^6/uL (4.36-5.78); RDW 16.5 % (11.8-14.1); RDW-SD 54.9 fL; WBC 18.52 10^3/uL (4.4-10.8)
[2022-01-09 06:53] LABS: Absolute Eosinophil Count 0.37 10^3/uL (0.0-0.7); Absolute Lymphocyte Count 0.74 10^3/uL (1.2-3.4); Absolute Monocyte Count 2.59 10^3/uL (0.1-0.8); Absolute Neutrophil Count 14.82 10^3/uL (1.2-6.7)
[2022-01-09 06:54] LABS: Diff Comment Manual Differential
[2022-01-09 07:06] LABS: D-Dimer 1324 ng/mlFEU (<500)
[2022-01-09 07:16] LABS: ALT 8 U/L (16-63); AST 22 U/L (15-37); Albumin 0.8 g/dL (3.4-5.0); Alkaline Phosphatase 61 U/L (46-116); Anion Gap 4.5 mmol/L (3-11); BUN 26 mg/dL (7-18); Bilirubin, Total 0.3 mg/dL (0.2-1.0); CO2 28.5 mmol/L (21.0-32.0); CREATININE 1.2 mg/dL (0.70-1.30); Calcium 7.9 mg/dL (8.5-10.1); Chloride 106 mmol/L (98-107); Creatine Kinase 42 U/L (39-308); Estimated GFR 69.23 (mL/min/1.73m2); Glucose 90 mg/dL (74-106); Potassium 3.6 mmol/L (3.5-5.1); Sodium 139 mmol/L (136-145); Total Protein 4.8 g/dL (6.4-8.2)
[2022-01-09 08:03] LABS: Ferritin 1645 ng/mL (26-388)
[2022-01-09] MEDS: Cholecalciferol (Vitamin D3) 1,000 UNIT TAB 1000 UNITS PO (08:58)
[2022-01-09] MEDS: Acyclovir 400 MG TAB PO ×2 (08:58→19:57)
[2022-01-09] MEDS: Ascorbic Acid 500 MG TAB 1000 MG PO ×2 (08:58→19:57)
[2022-01-09] MEDS: Doxycycline Hyclate 100 MG CAP PO ×2 (08:58→19:56)
[2022-01-09] MEDS: Torsemide 20 MG TAB 10 MG PO (08:58)
[2022-01-09] MEDS: Zinc Sulfate 220 MG TAB PO (08:58)
[2022-01-09] MEDS: Aspirin E.C. 81 MG TABEC PO (08:58)
[2022-01-09] MEDS: Apixaban 5 MG TAB 10 MG PO ×2 (08:58→19:57)
[2022-01-09] MEDS: Acetaminophen 325 MG TAB PO ×2 (08:59→20:00)
[2022-01-09 14:12] LABS: HIV-1/2 Ag & Ab Screen Negative (Negative)
[2022-01-09] MEDS: cefTRIAXone 2 GM/50 ML BAG IVPB (14:40)
--- NOTE | 2022-01-09 16:41 | W.PM.PROGNOT ---
Date of Service Date of service: 01/09/22 Time of Service: 16:41 Assessment and Plan Assessment and plan (1) Community acquired pneumonia: Status: Acute Assessment and plan: continues to improve. not requiring any oxygen, SPO2 95 TO 98% on room air. Currently on Rocephin and doxycycline. will dc home on oral Augmentin and doxycycline for 5 more days for total of 10 days. Professional time spent interviewing and examining patient, discussion of goals of care with hospital team (care management, nursing and consulting professionals) was 15 minutes. (2) COVID-19: Status: Acute Assessment and plan: continue Remdesivir d#4 of 5. no indications for daily dexamethasone as he is not hypoxemic. Patient will need to remain in isolation for 10 days from onset of his symptoms but once his fevers resolve, I plan to switch to oral antibiotics and when he has completed his Remdesivir he can be discharged home to complete oral antibiotics for CAP. (3) Amyloidosis: Status: Chronic Assessment and plan: patient's treatmens are on hold while he is being treated for COVID-19 (4) Elevated troponin: Status: Acute Assessment and plan: secondary to PE. will get formal echo on Monday. (5) Pulmonary embolus, right: Status: Acute Assessment and plan: Patient now on apixaban 10 mg bid x 7 days (day #2 of 7) then will go on 5 mg bid for 3 to 6 months. 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 Subjective Subjective Patient reports: feels better; denies shortness of breath or fever Exam Narrative Exam Narrative: Patient sitting up in bed, not dyspneic w/ prolonged conversation Lungs: still w/ bibasilar fine rales; no wheezing or rhonchi Heart: RRR Abdomen: soft, nontender, no edema Objective Last Vital Signs Temp 37.5 C 01/09/22 15:55 Pulse 92 H 01/09/22 15:55 Resp 18 01/09/22 15:55 BP 141/91 H 01/09/22 15:55 Pulse Ox 96 01/09/22 15:55 Laboratory Results - last 24 hr 01/07/22 01/09/22 01/09/22 11:25 06:00 06:00 WBC 18.52 H RBC 3.49 L Hgb 10.8 L Hct 32.4 L MCV 93 MCH 30.9 MCHC 33.3 RDW 16.5 H Plt Count 308 MPV 11.3 H Immature Gran % 0.0 Neutrophils % 80.0 Lymphocytes % 4.0 Monocytes % 14.0 Eosinophils % 2.0 Basophils % 0.0 Nucleated RBC % 0.0 Absolute Neutrophils 14.82 H Absolute Lymphocytes 0.74 L Absolute Monocytes 2.59 H Absolute Eosinophils 0.37 Absolute Basophils 0.00 D-Dimer Sodium 139 Potassium 3.6 Chloride 106 Carbon Dioxide 28.5 Anion Gap 4.5 BUN 26 H Creatinine 1.2 Est GFR (CKD-EPI 2020) 69.23 Glucose 90 Calcium 7.9 L Ferritin 1645 H Total Bilirubin 0.3 AST 22 ALT 8 L Alkaline Phosphatase 61 Creatine Kinase 42 C-Reactive Protein 15.40 H Total Protein 4.8 L Albumin 0.8 L HIV 1&2 Ag/Ab, 4th Gen Negative 01/09/22 06:00 WBC RBC Hgb Hct MCV MCH MCHC RDW Plt Count MPV Immature Gran % Neutrophils % Lymphocytes % Monocytes % Eosinophils % Basophils % Nucleated RBC % Absolute Neutrophils Absolute Lymphocytes Absolute Monocytes Absolute Eosinophils Absolute Basophils D-Dimer 1324 H Sodium Potassium Chloride Carbon Dioxide Anion Gap BUN Creatinine Est GFR (CKD-EPI 2020) Glucose Calcium Ferritin Total Bilirubin AST ALT Alkaline Phosphatase Creatine Kinase C-Reactive Protein Total Protein Albumin HIV 1&2 Ag/Ab, 4th Gen
[2022-01-09] MEDS: REMDESIVIR 100 MG in Normal Saline 250 ML 250 MG IVPB (17:25)
[2022-01-09 19:34] LABS: Legionella Ag Detection Urine Negative (Negative)
[2022-01-09] MEDS: Atorvastatin 40 MG TAB PO (19:57)
[2022-01-09] MEDS: Normal Saline Flush 10 ML SYR IVP (19:58)
[2022-01-09 20:26] LABS: Procalcitonin 0.2 ng/mL
--- NOTE | 2022-01-10 | DI.US_ITS ---
APPROVED REPORT EXAM: Comprehensive 2D, Doppler, and color-flow Echocardiogram Patient Location: In-Patient Room/Bed: 228 Geological Sample Tester: Nano Che RDCS (AE) Indications: Elevated troponin, LBBB, COVID, H/O amyloidosis Other Information Study Quality: Fair. Technically limited study due to body habitus, inability to position patient exa m done bedside, supine. Conclusion Normal left ventricular wall thickness and chamber size. Estimated ejection fraction is 55 to 60%. There are no segmental wall motion abnormalities Normal right ventricular size and systolic function Both atria are normal in size There is no structural or hemodynamically significant valvular disease Dilated ascending aorta measuring 4.47 cm Wall motion Left Ventricle The left ventricle is normal size. The left ventricular systolic function is low normal. The left navarro tricular ejection fraction is within the normal range. There is normal left ventricular wall thicknes s. There is normal LV segmental wall motion. There is no ventricular septal defect visualized. LVEF i s 55-60%. Right Ventricle The right ventricle is normal size. The right ventricular systolic function is normal. Atria The left atrium size is normal. The right atrium size is normal. The interatrial septum is intact wit h no evidence for an atrial septal defect. Aortic Valve The aortic valve is normal in structure. Aortic valve is trileaflet. There is no aortic valvular sten osis. No aortic regurgitation is present. Mitral Valve The mitral valve is normal in structure. No evidence of mitral valve stenosis. Trace to mild mitral r egurgitation. Tricuspid Valve The tricuspid valve is normal in structure. There is no tricuspid valve stenosis. Trace tricuspid reg urgitation. Unable to assess PA pressure. Pulmonic Valve The pulmonary valve is normal in structure. There is no pulmonic valvular stenosis. There is no pulmo cathi valvular regurgitation. Great Vessels The aortic root is normal in size. The ascending aorta is dilated.4.47 cm IVC is normal in size and c ollapses >50% with inspiration. Pericardium There is no pericardial effusion. 2D Dimensions IVSD d PLAX 1.27 cm M: 0.6-1.2 LV Vol A2C d MOD 130.3 mL LVPW d PLAX 1.25 cm M: 0.6 - 1.2 LV Vol A4C d MOD 146.6 mL LVID d PLAX 4.88 cm M: 4.2 - 5.8 LA vol/ BSA A2C s A-L 25.4 mL/m2 LVDs 3.55 cm M: 2.5 - 4.0 LA vol/ BSA A4C s A-L 23.0 mL/m2 Ao Root d 3.63 cm M: 3.1 - 3.7 LA Vol/ BSA Biplane s A-L 24.2 mL/m2 RA Area A4C 13.16 cm2 LA Area A4C s MOD 18.03 cm2 RA Vol/ BSA A4C s A-L 12.3 mL/m2 LA Area A2C s MOD 19.03 cm2 Ao Asc Diam d 4.47 cm M: 2.6 - 3.4 LV EF A4C MOD 55.7 % LV EF Teichholz 51.6 % LV EF A2C MOD 55.3 % LVEF (Arevalo's) 55.74 % M: 52 - 72 LV EF Biplane MOD 55.7 % LV Volume 102.94 mL M: 62 - 150 SV 80.09 mL LV Volume Index 44.56 mL/m2 M: 34 - 74 SV Index 34.67 mL/m2 LV Vol Biplane MOD 143.7 mL FS 26.40 % M-Mode TAPSE 2.09 cm (M/F) >1.7 LV Diastology MV E' medial 0.088 (>0.07 m/s) MV E Vmax 1.17 (0.4-1.3 m/s) LV E/e MED 13.25 (<14) MV E' lateral 0.092 (>0.1 m/s) LV E/e LAT 12.70 (<14) MV E/E' medial 13.28 MV E/E' lateral 12.71 Aortic Valve LVOT Area 2.84 cm2 AoV Area Vmax 2.24 cm2 LVOT Vmax 1.26 m/s AoV Area/ BSA (Vmax) 0.97 cm2/m2 LVOT Mean Philippe. 0.88 m/s AURELIO Mean Philippe. 2.08 cm2 LVOT Peak Grad 6.3 mmHg AURELIO Mean Philippe. Index 0.90 cm2/m2 LVOT Mean Grad 3.7 mmHg LVOT VTI 0.193 m LVOT Diam s 1.90 cm AoV Vmax 1.60 m/s Velocity Ratio 0.78 AoV Mean Philippe. 1.20 m/s AoV Peak Grad 10.2 mmHg LVOT SV 54.85 mL AoV Mean Grad 6.2 mmHg AoV VTI 0.235 m AoV Area VTI 2.33 cm2 AoV Area/ BSA (VTI) 1.01 cm/m2 Mitral Valve MV DT 141 (160-240 msec) MV PHT 41 msec MV Area PHT 5.38 cm2 MV VTI 0.165 m MV Area VTI 3.32 (4.0-6.0 cm2) Pulmonary Valve PV Vmax 1.48 (0.5-1.5 m/s) RVOT Peak Gr. 6.62 mmHg PV Peak Grad 8.8 mmHg RVOT Mean Gr. 3.25 mmHg PV Mean Grad 4.2 mmHg RVOT VTI 0.181 m PV VTI 0.232 m RVOT Vmax 1.29 m/s
[2022-01-10 00:30] VITALS: BP 135/83; PULSE 89; RESP 18; TEMP 36.6; O2SAT 94
[2022-01-10 04:32] VITALS: BP 138/88; PULSE 91; RESP 18; TEMP 37.4; O2SAT 93
[2022-01-10 05:04] VITALS: RESP 18; O2SAT 93
[2022-01-10 06:26] LABS: Absolute Basophil Count 0.08 10^3/uL (0.0-0.2); Absolute Eosinophil Count 0.42 10^3/uL (0.0-0.7); Basophils % 0.5; Eosinophils % 2.5; HGB 11.5 g/dL (13.5-17.5); Immature Grans % 1.2; Lymphocytes % 5.9; MCH 31.3 pg (27.0-33.0); MCHC 34.8 % (32.0-36.0); MCV 90 fL (80-95); Monocytes % 13.5; Neutrophils % 76.4; Platelet Count 367 10^3/uL (130-400); RBC 3.68 10^6/uL (4.36-5.78); RDW 16.2 % (11.8-14.1); RDW-SD 52.9 fL; WBC 16.99 10^3/uL (4.4-10.8)
[2022-01-10 06:29] LABS: Absolute Monocyte Count 2.29 10^3/uL (0.1-0.8); Absolute Neutrophil Count 12.98 10^3/uL (1.2-6.7)
[2022-01-10 06:57] LABS: D-Dimer 1224 ng/mlFEU (<500)
[2022-01-10 07:00] VITALS: PULSE 95
[2022-01-10 07:19] LABS: ALT 11 U/L (16-63); AST 17 U/L (15-37); Albumin 0.8 g/dL (3.4-5.0); Alkaline Phosphatase 60 U/L (46-116); Anion Gap 8.8 mmol/L (3-11); BUN 25 mg/dL (7-18); Bilirubin, Total 0.3 mg/dL (0.2-1.0); CO2 26.2 mmol/L (21.0-32.0); CREATININE 1.1 mg/dL (0.70-1.30); Calcium 7.8 mg/dL (8.5-10.1); Chloride 105 mmol/L (98-107); Creatine Kinase 38 U/L (39-308); Estimated GFR 76.85 (mL/min/1.73m2); Glucose 90 mg/dL (74-106); Potassium 3.7 mmol/L (3.5-5.1); Sodium 140 mmol/L (136-145); Total Protein 4.9 g/dL (6.4-8.2)
[2022-01-10 07:20] LABS: Ferritin 1562 ng/mL (26-388)
[2022-01-10 07:29] LABS: C-Reactive Protein 12.59 mg/dL (0.0-0.3)
[2022-01-10] MEDS: Acetaminophen 325 MG TAB PO (08:27)
[2022-01-10] MEDS: Acyclovir 400 MG TAB PO (08:28)
[2022-01-10] MEDS: Amoxicillin 875/Clav. 125 TAB PO (08:28)
[2022-01-10] MEDS: Apixaban 5 MG TAB 10 MG PO (08:28)
[2022-01-10] MEDS: Aspirin E.C. 81 MG TABEC PO (08:28)
[2022-01-10] MEDS: Zinc Sulfate 220 MG TAB PO (08:29)
[2022-01-10] MEDS: Ascorbic Acid 500 MG TAB 1000 MG PO (08:29)
[2022-01-10] MEDS: Cholecalciferol (Vitamin D3) 1,000 UNIT TAB 1000 UNITS PO (08:29)
[2022-01-10] MEDS: Torsemide 20 MG TAB 10 MG PO (08:30)
[2022-01-10] MEDS: Doxycycline Hyclate 100 MG CAP PO (08:30)
[2022-01-10 09:03] VITALS: BP 145/79; PULSE 71; RESP 16; TEMP 36.8; O2SAT 94
[2022-01-10 10:05] LABS: HBs Antibody, Qual Negative (See Note); HBs Antibody, Quant <3.1 mIU/mL (See Note); Hepatitis B Core Antibody Negative (Negative); Hepatitis B surface Ag Negative (Negative); Hepatitis C Ab w Rflx HCV PCR Negative (Negative)
[2022-01-10] MEDS: REMDESIVIR 100 MG in Normal Saline 250 ML 250 MG IVPB (14:13)
--- NOTE | 2022-01-10 15:10 | W.PM.DS.N ---
Date of service: 01/10/22 Time of Service: 15:10 DS: Diagnosis Discharge Diagnosis (1) COVID-19: Status: Acute (2) Pulmonary embolus, right: Status: Acute (3) Elevated troponin: Status: Acute Asessment and Plan: Minimal troponin elevation of 103 on admission peaked at 105 and came down to 80 ng/L. No acute EKG changes were noted. Echocardiogram was performed and showed normal left ventricular size and function with an ejection fraction of 55 to 60% with no wall motion abnormalities. Normal RV size and function. Of note he has a dilated ascending aorta measuring 4.47 cm. This will need follow-up monitoring on a yearly basis (4) Community acquired pneumonia: Status: Acute Asessment and Plan: Patient was felt to have a concomitant community-acquired pneumonia as the patient was having intermittent fevers along with a leukocytosis of 26,000 on admission with a leftward shift with 22,000 neutrophils and elevated procalcitonin level of 0.2 which initially had been normal at less than 0.1 on admission. Patient responded to Rocephin and doxycycline and was switched to Augmentin at discharge. Follow-up chest x-ray in 2 to 3 weeks. WBCs had declined to 16,000 at discharge. (5) Amyloidosis: Status: Chronic (6) Ascending aorta dilatation: Status: Acute Asessment and Plan: Dilated ascending thoracic aorta measuring 4.47 cm Discharge Plan Disposition Patient Disposition: HOME Condition: Improving Discharge Details Reason For Visit: COVID-19 Pneumonia,Elevated Troponin Level, Admit Date/Time: 01/06/22 19:47 Admit Provider: Stef Gorman Attending Provider: Stef Gorman Primary Care Provider: Johnnie Frost Hospital Course Hospital Course: 61-year-old male with a history of amyloidosis with protein-losing nephropathy is on weekly chemotherapy regimen through [facility] presented emergency department right-sided pleuritic chest discomfort and shortness of breath. CT scan chest with contrast revealed right lower lobe pulmonary artery embolus as well as right lower lobe infiltrate and volume loss and small right pleural effusion. However he did have bilateral posterior basilar groundglass changes consistent with a viral pneumonia. Patient previously been diagnosed couple weeks ago with COVID and was treated with monoclonal antibodies through [facility]. Despite his dyspnea the patient was not hypoxemic. Because of his immunocompromise state and pleuritic chest pain and new pulmonary embolus in the setting of COVID he was admitted to the hospital. Because of his unclear whether or not he had a community-acquired pneumonia superimposed on his COVID-19 he was started on parenteral antibiotics. For his COVID-19 he was treated with a 5-day course of Remdesivir. He was initially started on dexamethasone however because he was not hypoxemic he was not considered a candidate for high-dose dexamethasone. He was treated with ceftriaxone 2 g IV daily along with doxycycline 100 mg twice a day. This was continued from 01/06/2022 through 01/09/2022 afterwards he was switched over to Augmentin beginning on 01/10/2022. He completed a 5-day course of Remdesivir. He did periodically spike fevers throughout his hospital course but these resolved by the evening of 01/08/2022. After remaining afebrile for 24 hours and feeling markedly better and having been treated with initially with enoxaparin at 1 mg/kg every 12 hours and then transition over to apixaban 10 mg twice a day he was doing well enough that he can be discharged home in improved condition. He is given a prescription for Augmentin 875 mg p.o. twice daily for 7 more days. He was given a prescription for apixaban 5 mg tablets 2 tablets twice a day for 7 days then decrease to 5 mg 1 tablet twice a day thereafter. Case management gave him a coupon for his first months prescription. Patient understands that he will need to remain on the apixaban for at least 3 to 6 months. I told him that his contract associate manager who is managing his amyloidosis can determine when he can safely come off the apixaban. I told him this is a provoked pulmonary embolus secondary to his COVID-19 infection. I advised him to stay off his chemotherapy treatment for this week but once he is recovered from his COVID-19 he could go back to his weekly treatments probably beginning next week. Patient is advised to remain in isolation for 5 more days for total of 10 days from the onset of his infection. Home Meds and New Rx's Prescriptions: New amoxicillin-pot clavulanate 875-125 mg Tablet 1 tab PO BID Qty: 14 0RF apixaban 5 mg (74 tabs) tablets,dose pack 5 mg PO ONCE Qty: 74 0RF Rx Instructions: two tabs (10 mg) po bid x 7d, then one tab (5 mg) po bid Continued torsemide 10 mg tablet 1 tab PO 1XD Label Comments: TAKE 1 TABLET BY MOUTH ONCE DAILY THEN AN ADDITIONAL 1 TABLET NEEDED FOR A 3 TO 5 LB WEIGHT GAIN acyclovir 400 mg tablet 1 tab PO BID Label Comments: TAKE 1 TABLET BY MOUTH TWICE DAILY dexamethasone 4 mg Tablet 40 mg PO QWEEK montelukast 10 mg tablet 1 tab PO QWEEK Label Comments: TAKE 1 TABLET BY MOUTH ON THE DAY BEFORE, THE DAY OF AND DAY AFTER CHEMOTHERAPY Discharge Instructions Instructions: Pulmonary Embolism (DC), COVID-19 (Coronavirus Disease 2019) (DC), COVID-19 and Chronic Health Conditions (DC), COVID-19: Slow the Coronavirus Spread (DC) Additional Instructions: You were found to have a blood clot in your right lower lobe of your right lung. This is called a pulmonar embolism. This is often a complication of COVID-19 infection. You were put on a blood thinner, Apixaban (trade name Eliquis). This medication needs to be taken on a regular schedule twice a day about 12hr apart. Your first week you will take 10 mg twice a day (two 5 mg tablets) and after one week you will decrease to 5 mg twice a day. Blood clots usually need at least 3 months of treatment depending on the cause of the clots, i.e. caused by a provoked event which is reversible, such as COVID or prolonged immobility such as after hip or knee surgery or if it is an unprovoked event. Your contract associate manager will follow up with you on your amyloid and make the determination when it is safe to take you off anticoagulants. He may want to keep you on a more prolonged course such as 6 months or up to a year. You have completed a course of treatment over 5 days of Remdesivir, an antiviral, to treat your COVID-19 infection. You should not need any more treatments but you should remain in isolation for 10 days from onset of the infection. We are going by your date you presented to the ER on 01/06, therefore isolation should continue to 01/16. Call your contract associate manager to set follow up for resumption of your treatment of your amyloid. In addition to your COVID it appears that there was a focal pneumonic consolidation in the right lower lobe for which we treated you w/ iv antibiotics. I have convert this to oral Augmentin (amoxicillin/clavulanate) which you should take twice a day for the next week. Please get a follow up chest xray in 2 to 3 weeks to ensure that you consolidations have resolved. If you have fevers, shaking chills or shortness of breath or chest pains you should seek immediate medical attention. Please monitor your oxygen levels at home w/ a home finger pulse oximeter. Your oxygen saturations should stay above 90%. Stand Alone Forms: Nursing Discharge Form Referrals: Esau Serrano PA [NURSE PRACTITIONER] - 01/19/22 2:00 pm Activity:: Activity as Tolerated Equipment/Supplies:: No Equipment Needed Diet:: Normal Diet Discharge Orders Discharge Orders: Discharge Order (Routine); Ordered 01/10/22 Ordered By: Chema Conde Other Ambulatory Orders: XR chest 2V PA & lateral (Routine) Timeframe: 2 Weeks Facility: [facility] - Location: DIAGNOSTIC IMAGING Ordered By: Chema Conde Discharge Data Discharge Date/Time-TO BE ENTERED AT DEPARTURE: 01/10/22 16:39 DS: Summary Time Spent with Patient providing and/or coordinating discharge services: Less than 30 minutes Specific discharge activities: 30 Status at Discharge Functional status at discharge: independent ambulation Overall status at discharge: patient is back to baseline Mental Status: mental status grossly normal Speech and Movement: speech and movement normal Mood: congruent mood Affect: normal affect Exam Narrative Exam Narrative: Jong is lying in bed somewhat recumbent position watching TV. He is alert and oriented person place time circumstance he is eager to return home he denies any dyspnea or chest discomfort. Lungs are clear to auscultation on the left side as well as in the right anterior and right upper posterior but some diminished breath sounds continued in the right lower posterior lung field. Heart regular rate and rhythm Abdomen soft nontender nondistended Extremities without edema Psych Mental Status: mental status grossly normal Speech and Movement: speech and movement normal Mood: congruent mood Affect: normal affect DS: Data Vitals/I&O Vitals and I&O: Vital Signs Temperature 36.8 C 01/10/22 09:03 Temperature Source Tympanic 01/10/22 09:03 Pulse 71 01/10/22 09:03 Pulse Rhythm Regular 01/10/22 05:04 Pulse 100 H 01/06/22 17:00 Respiratory Rate 16 01/10/22 09:03 Respiratory Effort Non-Labored 01/10/22 05:04 Respiratory Depth Normal 01/10/22 05:04 Respiratory Pattern Normal 01/10/22 05:04 Blood Pressure 145/79 H 01/10/22 09:03 Blood Pressure Mean 85 01/06/22 16:46 Blood Pressure Position Supine 01/06/22 13:42 Pulse Oximetry 94 01/10/22 09:03 Oxygen Delivery Method Room Air 01/10/22 09:03 Oxygen Flow Rate 0 01/10/22 09:03 Pain Level 0 01/10/22 09:03 Comment 01/07/22 03:25 Intake & Output 01/09/22 01/10/22 01/10/22 23:59 11:59 23:59 Intake Total 620 / 620 Balance 620 / 20 Intake: IV 320 / 320 Oral 300 / 300 Other: Urine Color Yellow Urine Appearance Clear Clear Urine Odor Normal Comment per patient he voided in the toilet Voiding Methods Toilet Data Completed and Pending Labs on day of discharge: Labs from last 24 hours 01/10/22 01/10/22 01/10/22 06:00 06:00 06:00 WBC 16.99 H RBC 3.68 L Hgb 11.5 L Hct 33.0 L MCV 90 MCH 31.3 MCHC 34.8 RDW 16.2 H Plt Count 367 MPV 11.0 Immature Gran % 1.2 Neutrophils % 76.4 Lymphocytes % 5.9 Monocytes % 13.5 Eosinophils % 2.5 Basophils % 0.5 Nucleated RBC % 0.0 Absolute Neutrophils 12.98 H Absolute Lymphocytes 1.00 L Absolute Monocytes 2.29 H Absolute Eosinophils 0.42 Absolute Basophils 0.08 D-Dimer 1224 H Sodium 140 Potassium 3.7 Chloride 105 Carbon Dioxide 26.2 Anion Gap 8.8 BUN 25 H Creatinine 1.1 Est GFR (CKD-EPI 2020) 76.85 Glucose 90 Calcium 7.8 L Ferritin 1562 H Total Bilirubin 0.3 AST 17 ALT 11 L Alkaline Phosphatase 60 Creatine Kinase 38 L C-Reactive Protein 12.59 H Total Protein 4.9 L Albumin 0.8 L Procalcitonin Hep Bs Antigen Hep Bs Antibody Hep Bs Antibody, Quant Hep B Core Total Ab Hepatitis C Antibody HIV 1&2 Ag/Ab, 4th Gen Urine Legionella Ag 01/09/22 01/08/22 01/07/22 06:00 19:30 11:25 WBC RBC Hgb Hct MCV MCH MCHC RDW Plt Count MPV Immature Gran % Neutrophils % Lymphocytes % Monocytes % Eosinophils % Basophils % Nucleated RBC % Absolute Neutrophils Absolute Lymphocytes Absolute Monocytes Absolute Eosinophils Absolute Basophils D-Dimer Sodium Potassium Chloride Carbon Dioxide Anion Gap BUN Creatinine Est GFR (CKD-EPI 2020) Glucose Calcium Ferritin Total Bilirubin AST ALT Alkaline Phosphatase Creatine Kinase C-Reactive Protein Total Protein Albumin Procalcitonin 0.2 Hep Bs Antigen Hep Bs Antibody Hep Bs Antibody, Quant Hep B Core Total Ab Hepatitis C Antibody HIV 1&2 Ag/Ab, 4th Gen Negative Urine Legionella Ag Negative 01/07/22 11:25 WBC RBC Hgb Hct MCV MCH MCHC RDW Plt Count MPV Immature Gran % Neutrophils % Lymphocytes % Monocytes % Eosinophils % Basophils % Nucleated RBC % Absolute Neutrophils Absolute Lymphocytes Absolute Monocytes Absolute Eosinophils Absolute Basophils D-Dimer Sodium Potassium Chloride Carbon Dioxide Anion Gap BUN Creatinine Est GFR (CKD-EPI 2020) Glucose Calcium Ferritin Total Bilirubin AST ALT Alkaline Phosphatase Creatine Kinase C-Reactive Protein Total Protein Albumin Procalcitonin Hep Bs Antigen Negative Hep Bs Antibody Negative Hep Bs Antibody, Quant <3.1 Hep B Core Total Ab Negative Hepatitis C Antibody Negative HIV 1&2 Ag/Ab, 4th Gen Urine Legionella Ag Preliminary micro results at discharge 01/09/22 00:00 Sputum Culture - Preliminary Sputum Normal [place] 01/06/22 14:45 Blood Culture - Preliminary Blood NO GROWTH 72 HOURS 01/06/22 14:23 Blood Culture - Preliminary Blood NO GROWTH 72 HOURS PFSH All Active Problems (Updated 01/11/22 @ 00:27 by Chema Conde MD) Ascending aorta dilatation (Acute) Pulmonary embolus, right (Acute) COVID-19 (Acute) Community acquired pneumonia (Acute) Amyloidosis (Chronic) Elevated troponin (Acute) Pneumonia due to COVID-19 virus (Acute) Medical History 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
[2022-01-10 15:13] VITALS: PULSE 94
--- NOTE | 2022-01-10 17:56 | CMDISCH_ITS ---
- If Service Date Differs Date of service: 01/10/22 Time of Service: 17:56 LACE Index Scoring Tool - Questions: Length of Stay (in days): 4 - 6 Acuity (Admit via E.D.?): Yes E.D. Visits: 1 - Answers: Total Score: 8 Risk of Readmission: Low Risk Care Management Discharge Reason for Hospitalization: Covid pneumonia, elevated troponin Discharge Plan: Jong returned home today with no new services. He did have new prescriptions, and he does not have insurance. CM discussed this with Kimani, who stated that he is not concerned about the cost. CM provided an [employer] coupon as well as information for the cost reduction program through [employer], should he need it. His will drive him home, and he will follow up with his PCP and discharge plan of care. He is happy to be going home. Patient/Family Education Needs: Review discharge instructions and limitations, discussion of self care needs including ask me three.
[2022-01-10 21:14] LABS: Streptococcus Pneumoniae Ag, U Negative (Negative)
[2022-01-11 16:04] LABS: Mycoplasma Pneumoniae PCR Negative; Specimen source sputum
== END 2022-01-10 16:39 | disposition home or self-care (01) | DRG 177 ==
LOC: ER 20:36 → MS 01-07 00:34
PROVIDERS: Internal Medicine; Physician Assistant; Admitting Provider Family Medicine; Emergency Provider Registered Nurse Emergency; PCP Specialist/Technologist Athletic Trainer; Visit Provider Family Medicine
DX: U07.1 COVID-19 (principal); I26.99 Other pulmonary embolism without acute cor pulmonale; J12.82 Pneumonia due to coronavirus disease 2019; J18.9 Pneumonia, unspecified organism; E85.4 Organ-limited amyloidosis; J90 Pleural effusion, not elsewhere classified; D84.9 Immunodeficiency, unspecified; N08 Glomerular disorders in diseases classified elsewhere; Z79.899 Other long term (current) drug therapy; I10 Essential (primary) hypertension; R74.8 Abnormal levels of other serum enzymes; K76.0 Fatty (change of) liver, not elsewhere classified; N25.89 Other disorders resulting from impaired renal tubular function; R00.0 Tachycardia, unspecified; R05.3 Chronic cough; R21 Rash and other nonspecific skin eruption; I77.810 Thoracic aortic ectasia
CPT/HCPCS: 36415; 71275; 80053; 82550; 84145; 85384; 86704; 86706; 86803; 87040; 87340; 87389; 87449; 87635; 93005; 96361; 96365; 96367; 96375; 99285; J1650; 81003; 81015; 82728; 83605; 83615; 83735; 84484; 85025; 85379; 85610; 85730; 86140; 87070; 87205; 87581; 87899; 93010; 93306; 99223; 99231; 99232; 99239; J0248; J1100; J3010; J3490; J7620

== ENCOUNTER → 2022-01-24 10:43 | Outpatient (CLI) | payer SELFPAY ==
--- OUTSIDE RECORDS SUMMARY | 2022-01-24 10:46 | XMS_ITS | Encounter Summary ---
:1960 Author Organization [facility] [place] [address] Care Team Providers Name Role Phone Unknown Primary Care Provider Unavailable Encounter Details Date Type Department Care Team Description 10/02/2018 Office Visit Dermatology at [facility], Allergic contact Road dermatitis due to [address] [facility] other agents ([place] [address] [address] [address]) [phone] [facility] [place], [place] [address] Social History Tobacco Use Types Packs/Day Years Used Date Never Smoker Smokeless Tobacco: Never Used Sex Assigned at Date Recorded Male 07/03/2021 3:24 PM EST documented as of this encounter Progress Notes Bharathi Mckeon MD - 10/02/2018 8:00 AM EDT Images from the original note were not included. Dermatology [place], [place] FOLLOW-UP Patient is established to this clinic, but new to me. Chief Complaint: dermatitis f/u - improved History of Present Illness Jong Copeland is a 58 y.o. male History of pruritus on the right back. He admits to traumatizing the area multiple times, which led to intermittent breakouts. Approximately 5 months ago, he noted onset of purple, raised lesions on the back and extremities. Previously treated with topical clobetasol, oral prednisone, and doxycycline with improvement, but without complete resolution. He has completed 3 rounds of oral prednisone anddoxycycline; most recently 2 weeks ago. No new medication prior to onset. Since Jul 2018, he has changed to sensitive skin care products, but admits to still using Head and Shoulders shampoo and dryer sheets. No personal history of childhood eczema or asthma, but reports history of dermatitis that flared 6 years ago, which spontaneously resolved, except for 1 persistent patch on the back. He also hashistory of mild allergic rhinitis. Interval Changes in Medications and Medical, Surgical Family, and Social Histories Since Last Visit 08/22/2018: No significant and pertinent interval changes. Allergies Patient has no known allergies. Medications has a current medication list which includes the following prescription(s): doxycycline monohydrate,prednisone, hydroxyzine, lisinopril, hydrochlorothiazide, and clobetasol. 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 Examination Standby: Taj Browncironikita Pruritus: 10/01. Mood is appropriate. Well developed, well-nourished in no apparent distress, alert and oriented to time, person, place and situation. Skin Type: II. Patient was asked to disrobe to the level of comfort. Examination of the head - including the scalp,face, ears, nose, lips - neck, chest, abdomen, back, axillae, upper and lower extremities (except ankles and feet), including the nail plates, significant for the following: ?? [place] papules agminated on his knees and right mid back; no pustules Assessment and Plan Allergic Contact Dermatitis Extensively Counseled: Patch testing's use for determining potential allergens the skin is in contact with that may be contributing to current dermatitis, limitations and benefits, reasons for testing for suspected and unsuspected allergens. Reviewed procedure, time course and application method. Explained typical potential allergic reactions as well as potential adverse reactions, including but not limited to common AEs such as itching/irritation/blistering from the tape as well as rare AEs, such as hives, shortness of breath or development of an allergy to something tested; headache, chest pain, joint aching, fever, or any other systemic symptoms are NOT associated with patch testing, and if pt develops any of these he should seek immediate medical care. Discussed potential for flare-up of patient's dermatitis on previously-affected skin during the testing which seems to occur more frequently if relevant positive reactions develop during testing. Discussed expectations for the final patch visit: after the tests are interpreted on Monday I will discuss the results in-depth. An information sheet about contact allergy will be given summarizing the positive results. For each allergic reaction, the patient will receive an information sheet reviewing the allergen name, synonyms, potential cross-reacting chemicals, possible exposure sources, and potential alternative products as needed. Answeredall questions. Patient verbally expressed understanding and gave verbal consent to initiate the patch testing procedure. ?? Recommended to discontinue Head and Shoulder shampoo and current bar soap; consider switching to All Free and Clear shampoo and Cetaphil/CeraVe cleanser. Handout given on sensitive skin care. ?? Start Rx clobetasol solution apply to the scalp bid prn for itching. Counseled: risks of topical steroids, including but not limited to atrophy, dyspigmentation. ?? Continue Rx clobetasol cream apply topically to the trunk and extremities bid prn for itching. (refill needed) Follow-up: At next available appointment for patch testing and 6 weeks for dermatitis follow-up or sooner as needed for worsening or new dermatitis. Note initiated by SARAH Dao has performed the documentation for this encounter in the presence of and acting as ascribe for Dr. Mckeon. I performed the above scribed service and agree with the accuracy of the documentation in this encounter. Bharathi Mckeon MD [facility] Section of Dermatology [facility] documented in this encounter Plan of Treatment Not on filedocumented as of this encounter Visit Diagnoses Diagnosis Allergic contact dermatitis due to other agents - Primary documented in this encounter Care Teams Plant Electrical Engineer Relationship Specialty Start Date End Date Unknown PCP - General 10/02/18 05/31/21 None documented as of this encounter
--- OUTSIDE RECORDS SUMMARY | 2022-01-24 10:46 | XMS_ITS | Encounter Summary ---
:1960 Author Organization [facility] Address [address] [place] [address] Care Team Providers Name Role Phone Esau Serrano Primary Care Provider Encounter Details Date Type Department Care Team Description 07/07/2021 Telephone Cardiology at [facility] Delmis Iraheta MD [facility] [place] [address] [place] [address] [phone] (Wo rk) Social History Tobacco Use Types Packs/Day Years Used Date Never Smoker Smokeless Tobacco: Never Used Sex Assigned at Date Recorded Male 07/03/2021 3:24 PM EST documented as of this encounter Miscellaneous Notes Telephone Encounter - Delmis Iraheta MD - 07/07/2021 5:09 PM EDT I called Mr. Copeland but was not able to leave a message I reached his and shared with her that his urinalysis came back showing proteinuria and that this indicates a possible issue with his kidneys. I let her know that I was having a message sent to his PCP Dr. Saray Nicholson G[employer] as well and that they should also call her office I also said that his LDL cholesterol came back very high and that this may also be due to his renal function. I was starting rosuvastatin for this (40 mg) and had sent in the prescription to his [place] pharmacy We review the other plans we had made this morning. She voiced understanding and would let her know documented in this encounter Plan of Treatment Not on filedocumented as of this encounter Visit Diagnoses Not on filedocumented in this encounter Care Teams Loss Prevention Lead Relationship Specialty Start Date End Date Esau Serrano PA PCP - General Family Medicine 06/01/21 [address] [place] [address] documented as of this encounter
--- OUTSIDE RECORDS SUMMARY | 2022-01-24 10:46 | XMS_ITS | Encounter Summary ---
:1960 Author Organization [facility] [place] [address] Care Team Providers Name Role Phone Unknown Primary Care Provider Unavailable Encounter Details Date Type Department Care Team Description 12/05/2018 Notes Only Dermatology at [facility] Reena Mckeon, Bharathi Bullard MD [address] [facility] [place] [address] [facility] [phone] [place], [place] [address] (Wo rk) Social History Tobacco Use Types Packs/Day Years Used Date Never Smoker Smokeless Tobacco: Never Used Sex Assigned at Date Recorded Male 07/03/2021 3:24 PM EST documented as of this encounter Progress Notes Taj Sears - 12/05/2018 11:05 AM EDT Visit For: Patch Test application with Dr. Mckeon: 01/07/2019 Antecedent History: History of pruritus on the right back. He admits to traumatizing the area multiple times, which led to intermittent breakouts. Approximately in Apr 2018, he noted onset of purple,raised lesions on the back and extremities. Previously treated with topical clobetasol, oral prednisone, and doxycycline with improvement, but without complete resolution. He has completed 3 rounds of oral prednisone and doxycycline; most recently 2 weeks ago. No new medication prior to onset. Since Jul 2018, he has changed to sensitive skin care products, but admits to still using Head and Shoulders shampoo and dryer sheets. No personal history of childhood eczema or asthma, but reports history of dermatitis that flared in 2012, which spontaneously resolved, except for 1 persistent patch on the back. He also has history of mild allergic rhinitis. Patch Test Name: SUZANNE documented in this encounter Plan of Treatment Not on filedocumented as of this encounter Visit Diagnoses Not on filedocumented in this encounter Care Teams Ios Architect Relationship Specialty Start Date End Date Unknown PCP - General 10/02/18 05/31/21 None documented as of this encounter
--- OUTSIDE RECORDS SUMMARY | 2022-01-24 10:46 | XMS_ITS | Clinical Summary ---
:1960 Author Organization [facility] [place] [address] Care Team Providers Name Role Phone Esau Serrano Primary Care Provider Allergies Active Allergy Reactions Severity Noted Date Comments Chlorthalidone 07/07/2021 Major crampi ng Hydrochlorothiazide 07/07/2021 Major c ramping Furosemide 07/07/2021 major cramping Lisinopril 07/07/2021 Continuous cou gh Medications Medication Sig Dispensed Refills Start Date End Date Status hydrOXYzine (ATARAX) 50 1 07/25/2018 Active mg Tablet lisinopril Take 40 mg by 0 Activ e (PRINIVIL;ZESTRIL) 20 mg mouth daily. Tablet hydroCHLOROthiazide Take 25 mg by 0 Active (HYDRODIURIL) 25 mg mouth daily. Tablet clobetasol (TEMOVATE) Apply to 60 g 2 08/01/2018 Active 0.05 % Ointment affected areas on the trunk and extremities twice daily for up to 2 weeks, then take 1 week off. Repeat the cycle as needed. Additional Information Patient not taking. Reported on 07/12/2021 doxycycline monohydrate Take 1 capsule by 28 capsule 0 019 Active (MONODOX) 100 mg mouth 2 times daily. CapsuleIndications: Allergic contact dermatitis, unspecified trigger Additional Information Patient not taking. Reported on 07/12/2021 predniSONE (DELTASONE) 20 mg 60mg each morning x 5 30 tablet 0 08/22/2018 Active TabletIndications: Allergic days, then 40mg each contact dermatitis, unspecified morning x 5 days, trigger then 20mg each morning x 5 days. Additional Information Patient not taking. Reported on 07/12/2021 clobetasol (TEMOVATE) 0.05 % Apply a few drops to 50 mL 3 10/02/2018 Active SolutionIndications: Allergic each affected area of contact dermatitis due to other the scalp bid as agents needed for itching Additional Information Patient not taking. Reported on 07/12/2021 clobetasol-emollient (TEMOVATE E) Apply thin layer to trunk 60 g 3 10/02/2018 Active 0.05 % CreamIndications: Allergic and extremities bid as contact dermatitis due to other needed for rash/itching. agents Use no more than 3w of the month Additional Information Patient not taking. Reported on 07/12/2021 COQ10, UBIQUINOL, ORAL coQ10 (ubiquinol) 0 Active 200mg capsule /day DANDELION ORAL dandelion 0 Activ e Taraxicum [place] extract 80 drops 2-3 times /day for diuretic potassium/vit C/mins/herbal HTN Complex 0 Active 17 (HTN COMPLEX ORAL) HTN 180 PX extra 1 cap at night soybean, fermented Nattokinase 0 Active (Nattokinase) 50 mg Capsule 1 cap (100mg) 1xday-to prevent clots riboflavin, Vitamin B2, riboflavin (vitamin B2) 0 Active (Vitamin B2) 100 mg Tablet 1 cap 400mg/day rosuvastatin (Crestor) 40 Take 1 tablet by mouth 30 tablet 1 0 07/07/2021 Active mg Tablet daily. Additional Information Patient not taking. Reported on 07/12/2021 cholecalciferol, Vitamin D3, 50 Take 1 tablet by 90 tablet 3 0 07/12/2021 Active mcg (2,000 unit) Tablet mouth daily. Social History Tobacco Use Types Packs/Day Years Used Date Never Smoker Smokeless Tobacco: Never Used Sex Assigned at Date Recorded Male 07/03/2021 3:24 PM EST Last Filed Vital Signs Vital Sign Reading Time Taken Comments Blood Pressure 121/87 07/12/2021 3:12 PM EDT Pulse 94 07/12/2021 3:12 PM EDT Temperature - - Respiratory Rate 18 07/12/2021 3:12 PM EDT Oxygen Saturation 97% 07/12/2021 3:12 PM EDT Inhaled Oxygen Concentration - - Weight 114.8 kg (253 lb) 07/07/2021 10:47 AM EDT Height 182.9 cm (6') 07/07/2021 10:47 AM EDT Body Mass Index 34.31 07/07/2021 10:47 AM EDT Plan of Treatment Health Maintenance Due Date Last Done Comments Covid-19 Vaccine (#1) 1966 HIV screen 1979 Tdap adult 01/26/1980 Tetanus vaccine 01/26/1980 Colonoscopy 2006 Zoster vaccine (1 of 2) 2011 Advance Directive 01/26/2016 Influenza (Flu) vaccine (1 of 1 - Influenza standard 12/23/2021 series) Diabetes Screening (HgbA1C or Glucose) 07/07/2024 2 Hepatitis C Screening Completed 07/07/2021 Care Teams Credit Product Analyst Relationship Specialty Start Date End Date Esau Serrano PA PCP - General Family Medicine 06/01/21 [address] [place] [address]
--- OUTSIDE RECORDS SUMMARY | 2022-01-24 10:46 | XMS_ITS | Encounter Summary ---
:1960 Author Organization [facility] [place] [address] Care Team Providers Name Role Phone Esau Serrano Primary Care Provider Reason for Referral Diagnostic Test (Routine) - Authorized Specialty Diagnoses / Procedures Referred By Contact Refer red To Contact Radiology Diagnoses Hypertensive renal disease Tachycardia Heart murmur Encounter for screening for lipid disorder Delmis Iraheta MD [facility] Rad Nuclear Med Procedures NM Pharmacologic Stress and [place] [address] [place] [address] Phone: Fax: Referral ID Status Reason Start Expiration Visits Visits Date Date Requested Authorized [id number] Authorized Specialty 07/07/2021 01/06/2023 1 1 Service Requested iagnostic Test (Routine) - Authorized Specialty Diagnoses / Procedures Referred By Contact Refer red To Contact Radiology Diagnoses Hypertensive renal disease Tachycardia Heart murmur Encounter for screening for lipid disorder Delmis Iraheta MD [facility] Rad Nuclear Med Procedures NM Pharmacologic [place] [address] [place] [address] Phone: Fax: Referral ID Status Reason Start Expiration Visits Visits Date Date Requested Authorized [id number] Authorized Specialty 07/07/2021 01/07/2023 1 1 Service Requested Reason for Visit Consultation (Routine) - Closed Specialty Diagnoses / Procedures Referred By Contact Refer red To Contact Cardiology Diagnoses Hypertensive renal disease Heart murmur Tachycardia Proteinuria, unspecified type HTN/CVD CLINIC ?Alternative to HTN medication d/t allergies and general feeling unwell. Bloodwork & UA shows gross protenuria, hypoalbuminemia, normal Knights, Saray Gamez, Delmis Miranda MD liver enzymes. Pt reported being off BP meds for months because he felt awful on them. Pt was tachycardic on exam, e[facility] indicated possible past OH, echo pending. [address] [facility] [address] Dinorah Iraheta/Alexandria Wed AM [address] [place] [id number] [place], [place] [address] Referral ID Status Reason Start Date Expiration Date Visits V isits Requested Authorized [id number] Closed Consult, 06/08/2021 06/08/2022 1 1 Test & Treat Encounter Details Date Type Department Care Team Description 07/07/2021 Office Visit Cardiology at [facility] Delmis Iraheta MD [facility] [place] [address] Hypertensive renal disease; [facility] Alexia Ibrahim, [facility] Tachycardia; Drive Heart murmur; [place], [place] Encounter for s creening for lipid disorder [id number] Social History Tobacco Use Types Packs/Day Years Used Date Never Smoker Smokeless Tobacco: Never Used Sex Assigned at Date Recorded Male 07/03/2021 3:24 PM EST documented as of this encounter Last Filed Vital Signs Vital Sign Reading Time Taken Comments Blood Pressure 135/87 07/07/2021 10:47 AM EDT Pulse 88 07/07/2021 10:47 AM EDT Temperature - - Respiratory Rate - - Oxygen Saturation 98% 07/07/2021 10:47 AM EDT Inhaled Oxygen Concentration - - Weight 114.8 kg (253 lb) 07/07/2021 10:47 AM EDT Height 182.9 cm (6') 07/07/2021 10:47 AM EDT Body Mass Index 34.31 07/07/2021 10:47 AM EDT documented in this encounter Progress Notes Delmis Iraheta MD - 07/07/2021 10:40 AM EDT CARDIOLOGY OUTPATIENT CLINIC NOTE PRIMARY CARE PROVIDER: ELVIS Dixon REFERRING PROVIDER: Saray Nicholson Patient ID: Jong Copeland is a 61 y.o. male. HPI: 07/07/21 He comes today with his . He feels he has his blood pressure under control. He had very severe swelling in his legs and feetand was put on lasix but I can't do it as it feels my muscles are being ripped off my bones. He tried the lasix one time. He first noticed ankle swelling for the past several months, this initially resolved but has returned, did not tolerate HCTZ. He is being worked up for renal and GI issues as well but his EKG showing LBBB delayed the GI workup. He has no history of heart disease. His mother had an OH but when she was older. No other relevant family history. He denies chest pain, pressure, but is very tired, a lot. He takes a lot of non-FDA approved supplements. He is very active although not over the past few months due to not feeling well. 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 He had an episode about 2 months ago where he felt as if he would faint and was dizzy, no precipitating event. He continues to have some dizzy spells. At night he may feel some irregular heart beats when he first lies down. No evidence for possible sleep apnea. He does not smoke, no alcohol (used to be casual drinker). He lives with his , they have four daughters, only one near by--they are in close contact with all. They also live with a Pug (Bernard).He is followed by a Naturopathic Doctor. EKG 07/07/21 Sinus at 86 LBBB EKG 06/07/21 Sinus at LBBB Labs done after his appointment 07/07/21 Urinalysis: protein > 300 blood small TSH 3.56 Serum creatinine 0.99 K+ 4.3 PROBLEM LIST: Problem List: There are no relevant problems documented for this patient. MEDICATIONS: Current Outpatient Medications Medication Sig Dispense Refill ??? clobetasol (TEMOVATE) 0.05 % Solution Apply a few drops to each affected area of the scalp bid as needed for itching 50 mL 3 ??? clobetasol-emollient (TEMOVATE E) 0.05 % Cream Apply thin layer to trunk and extremities bid as needed for rash/itching. Use no more than 3w of the month 60 g 3 ??? doxycycline monohydrate (MONODOX) 100 mg Capsule Take 1 capsule by mouth 2 times daily. 28 capsule 0 ??? predniSONE (DELTASONE) 20 mg Tablet 60mg each morning x 5 days, then 40mg each morning x 5 days,then 20mg each morning x 5 days. 30 tablet 0 ??? hydrOXYzine (ATARAX) 50 mg Tablet 1 ??? lisinopril (PRINIVIL;ZESTRIL) 20 mg Tablet Take 40 mg by mouth daily. ??? hydroCHLOROthiazide (HYDRODIURIL) 25 mg Tablet Take 25 mg by mouth daily. ??? clobetasol (TEMOVATE) 0.05 % Ointment Apply to affected areas on the trunk and extremities twicedaily for up to 2 weeks, then take 1 week off. Repeat the cycle as needed. 60 g 2 No current facility-administered medications for this visit. Subjective: Review of Systems Constitutional: Positive for malaise/fatigue. Negative for weight gain. Cardiovascular: Positive for leg swelling and near-syncope. Negative for chest pain, claudication, cyanosis, dyspnea on exertion, irregular heartbeat, orthopnea, palpitations, paroxysmal nocturnal dyspnea and syncope. Respiratory: Negative for shortness of breath and sleep disturbances due to breathing. Hematologic/Lymphatic: Does not bruise/bleed easily. Musculoskeletal: Negative for back pain, falls, joint pain and myalgias. Genitourinary: Negative for frequency. Neurological: Positive for dizziness and light-headedness. Negative for loss of balance. Psychiatric/Behavioral: Negative for altered mental status and memory loss. Social History: Social History Socioeconomic History ??? Marital status: Spouse name: Not on file ??? Number of children: Not on file ??? Years of education: Not on file ??? Highest education level: Not on file Occupational History ??? Not on file Tobacco Use ??? Smoking status: Never Smoker ??? Smokeless tobacco: Never Used Vaping Use ??? Vaping Use: Never used Substance and Sexual Activity ??? Alcohol use: Not on file ??? Drug use: Not on file ??? Sexual activity: Not on file Other Topics Concern ??? Not on file Social History Narrative ??? Not on file Social Determinants of Health Financial Resource Strain: Not on file Food Insecurity: Not on file Transportation Needs: Not on file Physical Activity: Not on file Housing Stability: Not on file Objective: Physical Exam Constitutional: Appearance: He is well-developed. Neck: Vascular: No JVD. Cardiovascular: Rate and Rhythm: Normal rate and regular rhythm. Heart sounds: Normal heart sounds. Pulmonary: Effort: Pulmonary effort is normal. Breath sounds: Normal breath sounds. Musculoskeletal: Right lower leg: Edema present. Left lower leg: Edema present. Skin: General: Skin is warm and dry. Neurological: Mental Status: He is alert and oriented to person, place, and time. Psychiatric: Behavior: Behavior normal. Patient Vitals for the past 24 hrs: Pulse BP SpO2 07/07/21 1047 88 135/87 98 % No results found for this or any previous visit (from the past 72 hour(s)). Assessment and Plan: No problem-specific Assessment & Plan notes found for this encounter. Blood pressure ?? He monitors at home, overall readings are good 120/80 ?? Please see attached clinic note from Alexia Ibrahim PharmD LBBB on EKG ?? There were two times on his job that he did not feel well and had whole body pains but no clear episode that may have been a heart attack ?? 05/25/21 echocardiogram ([facility]) did not show regional wall motion abnormalities ?? This may be slowing of his conduction system causing LBBB (we do not have previous EKG and do notknow when he developed this) but he is relatively young to have conduction system disease. I discussed this with him and his and feel it is reasonable to have a stress test. He will have a pharmacologic nuclear stress test Supplements ?? Discussed that supplements were not FDA approved and may have benefits as well as off-target effects ?? We would continue to work with FDA-approved medications as indicated for him Lipids (done after his appointment) ?? 07/07/21 Total cholesterol 340 LDL 252, HDL 46 And TG 210 ?? Note: he states that he has had cholesterol testing in the past and told that it was a little high. I suspect he might have nephrotic syndrome (proteinuria, leg edema) which can cause markedly elevated LDL ?? Plan now is to start him on statin, rosuvastatin 40 mg daily ?? I have reached out to his PCP, Saray Nicholson to alert her and arrange for evaluation Lifestyle ?? Reviewed diet --he is aware of low sodium diet ?? Discussed physical activity and exercise Lower extremity edema ?? He has normal LV systolic function by outside echocardiogram ?? See note below regarding possible nephrotic syndrome Overall cardiac status ?? LBBB on EKG (unclear when first occurred) ?? Unremarkable echocardiogram (outside study) ?? He will have a pharmacologic nuclear stress test Possible Nephrotic Syndrome ?? He has history of proteinuria ?? Repeat urinalysis today showing > 300 mg/dL ?? I have reached out to his PCP --see below Message sent to Mr. Copeland' Primary Care Provider Saray Nicholson ND I saw Mr. Jong Copeland 62 this morning for a clinical cardiology evaluation. Please note that his history stated that he had proteinuria. I repeated the urinalysis which showed proteinuria at 300, some blood in urine. He has bilateral leg swelling and in the setting of normal LV systolic function is less likely to bedue to a primary cardiac etiology. I have called him to let him know that I have reached out to you for further evaluation and treatment. He appears to have nephrotic syndrome although I am not as familiar with renal diagnosis and management. Of note, his LDL is very high, he shared with us that he was told in the past that it was veryhigh but now is 252. This can also be consistent with nephrotic syndrome. I will be starting a statin but often with treatment of the renal issues we see the LDL go down Thank you, Delmis Iraheta MD, Florentino, FACC, FNLA Time spent for this clinic appointment on the date of service includes: 1) [id number] counseling as noted above 2) reviewing past medical records, cardiac testing, results of laboratory testing 3) coordinating care with other physicians and allied health care providers This patient was seen and evaluated by both Delmis Iraheta MD EdD [facility] [place] and Alexia Ibrahim PharmD as part of a Collaborative Practice Agreement. Dr. Iraheta supervised in and participated in all aspects of this appointment This clinic note includes: 1. History, Review of Symptoms, Examination, Vital Signs, Medication Review, Assessment and Plan by Delmis Iraheta MD, Florentino 2. Documentation of evaluation, recommendations, and counseling by Alexia Ibrahim PharmD. Delmis Iraheta MD, Florentino, [place], [place] Attending Surveyor'S Assistant Sports Cardiology Program Preventive Cardiology Lipid Clinic Advanced Hypertension Clinic Alexia Ibrahim, [facility] - 07/07/2021 10:40 AM EDT Cardiology Education: Multi-Specialty Visit Delmis Iraheta MD, Florentino, [place], [place] & Alexia Ibrahim PharmD, [facility] Visit Type: [id number] Summary of Recommendations & Next Steps: The following are recommendations from visit on 07/07/21. Please see notes below for more details and complete visit summary. Recommended Medication Changes: ?? No medication changes made today. Lifestyle Modification Goals: ?? Continue to monitor home BP several times a week. ?? Look into DASH diet ?? Continue to increase aerobic exercise (as tolerated) - aim for 30 minutes five days a week Follow Up Plan: ??? Clinic Follow Up after Stress Test Signed Cardiology CPA? Need patient signature Subjective: Patient ID: Jong Copeland is a 61 y.o. male who has no past medical history on file. Patient presents to visit today for medication management and education. HPI: Kimani is a pleasant 61 year old gentleman referred for management of hypertension. He notes that he has had high blood pressure for a while and tried several medications in the past that either do not work or he cannot tolerate. He notes over the past couple months he had severe swellin gin his legs andfeet and was prescribed PRN furosemide which caused him to feel like his muscles are being ripped off my bones. He notes that he often feels very fatigued. He lives at home with his and has fourdaughters that live in four different states. 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 ??? Current Hypertension Regimen: o Goal < 130/80 o No medications Naturopathic Provider - Supplements ?? HTN Formula (proprietary blend) ?? Dandelion [place] ?? Rauwolfia ?? Ubiquinol QH 200 mg ?? Riboflavin 400 mg ?? Nattokinase 100 mg ??? Current Lipids Regimen: o Goal LDL < 100 mg/dL o No medicaitons Medication Reconciliation / Management: Adherence tools include [] Pillbox [] Reminder alarms [] Med List [] Other [x] None Barriers to med adherence: [] Cost [x] Side Effects [] Unclear Directions [] Other: [] None # of Missed doses/week Denies Lifestyle: ??? Tobacco: Denies ??? Alcohol: Denies ??? Salt: Recent work on cutting out added salt in diet Exercise: Do you exercise regularly? 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 Fatigue Diet: ??? Notes well-balanced diet. Objective: Allergies and Drug intolerance: Allergies Allergen Reactions ??? Chlorthalidone Major cramping ??? Hydrochlorothiazide Major cramping ??? Lasix [Furosemide] major cramping ??? Lisinopril Continuous cough Reconciled Medication List: Current Outpatient Medications Medication Sig Dispense Refill ??? COQ10, UBIQUINOL, ORAL coQ10 (ubiquinol) 200mg capsule /day ??? DANDELION ORAL dandelion Taraxicum [place] extract 80 drops 2-3 times /day for diuretic ??? potassium/vit C/mins/herbal 17 (HTN COMPLEX ORAL) HTN Complex HTN 180 PX extra 1 cap at night ??? soybean, fermented (Nattokinase) 50 mg Capsule Nattokinase 1 cap (100mg) 1xday-to prevent clots ??? riboflavin, Vitamin B2, (Vitamin B2) 100 mg Tablet riboflavin (vitamin B2) 1 cap 400mg/day No current facility-administered medications for this visit. Most Recent Vitals: BP Readings from Last 3 Encounters: 07/07/21 135/87 BMI Readings from Last 3 Encounters: 07/07/21 34.31 kg/m?? Pertinent Lab values: Lab Results Component Value Date CHLPL 340 07/07/2021 HDL 46 07/07/2021 CHOLHDL 7.4 07/07/2021 TRIG 210 07/07/2021 LDLCHOL 252 07/07/2021 Lab Results Component Value Date NA 140 07/07/2021 K 4.3 07/07/2021 CL 105 07/07/2021 CO2 28 07/07/2021 BUN 18 07/07/2021 CREATININE 0.99 07/07/2021 GLUCOSE 81 07/07/2021 CALCIUM 8.5 07/07/2021 ESTGFR 82 07/07/2021 No results found for: HA1C No results found for: MICROALBUR, [id number] Assessment and Plan: Lipid Management ??? No recent Lipid Panel, will order to evaluated in the future. Blood Pressure Management: ??? Clinic BP is good today (135/87 p. 88). Kimani notes at home his blood pressure has been 120/80 consistently for the past two months. He notes that he started taking his natural supplements about two months ago as well. Did discuss that his supplements are not FDA approved and it is difficult to knowtheir contents and if it varies. ??? Given that home BPs are consistently at goal, did not make any medication changes today. Will continue to monitor. Education/Counseling ??? Provided counseling on the following topics: [] Cholesterol Pathophysiology & Management [x] Specific Medication (Mechanism, Adverse Effects) [] Lipid Goals [x] Blood Pressure Goals [x] DASH Diet [] Exercise Recommendations Follow Up: Clinic Follow Up after Stress Test Patient verbalized agreement and understanding of plan with no further questions at this time. Alexia Ibrahim, PharmD, BCGP documented in this encounter Plan of Treatment Pending Results Name Type Priority Associated Diagnoses Date/Ti or EKG 12 Lead ECG Routine Hypertensive carrie al disease 07/07/2021 10:53 AM EDT Tachycardia Heart murmur Encounter for screening for lipid disorder Scheduled Orders Name Type Priority Associated Diagnoses Order S chedule EKG 12 Lead ECG Routine Hypertensive renal Ordered: disease 07/04/2021 Tachycardia Heart murmur Encounter for screening for lipid disorder NM Pharmacologic Imaging Routine Hypertensive renal Expec halima: Stress CT Component disease 07/08/2021 Tachycardia (Approximate), Heart murmur Expires: Encounter for 07/07/2022 screening for lipid disorder Nuclear Pharmacologic Cardiac Services Routine Hypertensive re nal Expected: Stress Cardiology disease 07/08/2021 Tachycardia (Approximate), Heart murmur Expires: Encounter for 07/07/2022 screening for lipid disorder NM Pharmacologic Imaging Routine Hypertensive renal Expec halima: Stress and Rest disease 07/08/2021 Myocardial Perfusion Tachycardia (Approximate), Heart murmur Expires: Encounter for 07/07/2022 screening for lipid disorder documented as of this encounter Procedures Procedure Name Priority Date/Time Associated Diagnosis Comme nts PROTEIN/CREATININE Routine 07/07/2021 11:52 Resul ts for this RATIO, URINE AM EDT procedure are i n the results section. U ALBUMIN/CRE RATIO Routine 07/07/2021 11:52 Resu lts for this AM EDT procedure are i n the results section. PROTEIN Routine 07/07/2021 11:52 Results for this ELECTROPHORESIS, AM EDT procedure a re in URINE, RANDOM the results section. HC UA W/OUT Routine 07/07/2021 11:52 Hypertensive renal Resul ts for this MICROSCOPIC AM EDT disease procedure are in Tachycardia the results Heart murmur section. Encounter for screening for lipid disorder IMMUNOGLOBULIN FREE Routine 07/07/2021 11:51 Resu lts for this LIGHT CHAINS, SERUM AM EDT procedur e are in the results section. CRP, ACUTE Routine 07/07/2021 11:51 Results for this INFLAMMATION AM EDT procedure are i n the results section. HC PCH APOLIPO PROTEIN Routine 07/07/2021 11:51 Hypertensive r enal Results for this B AM EDT disease procedure are in Tachycardia the results Heart murmur section. Encounter for screening for lipid disorder HEPATITIS C ANTIBODY Routine 07/07/2021 11:51 Res ults for this AM EDT procedure are i n the results section. HEPATITIS A ANTIBODY, Routine 07/07/2021 11:51 Re sults for this IGM AM EDT procedure are i n the results section. HEPATITIS A ANTIBODY, Routine 07/07/2021 11:51 Re sults for this TOTAL AM EDT procedure are i n the results section. HEPATITIS B CORE Routine 07/07/2021 11:51 Results for this ANTIBODY, TOTAL AM EDT procedure ar e in the results section. VITAMIN D, 25-HYDROXY Routine 07/07/2021 11:51 Re sults for this AM EDT procedure are i n the results section. HEPATITIS B SURFACE Routine 07/07/2021 11:51 Resu lts for this ANTIBODY AM EDT procedure are i n the results section. HEPATITIS B SURFACE Routine 07/07/2021 11:51 Resu lts for this ANTIGEN AM EDT procedure are i n the results section. C3 COMPLEMENT Routine 07/07/2021 11:51 Results fo r this AM EDT procedure are i n the results section. C4 COMPLEMENT Routine 07/07/2021 11:51 Results fo r this AM EDT procedure are i n the results section. HC VENIPUNCTURE Routine 07/07/2021 11:51 Hypertensive renal Re sults for this AM EDT disease procedure are in Tachycardia the results Heart murmur section. Encounter for screening for lipid disorder HEPATIC FUNCTION PANEL Routine 07/07/2021 11:51 R esults for this AM EDT procedure are i n the results section. LIPID PANEL (REFLEX Routine 07/07/2021 11:51 Hypertensive zia l Results for this DIRECT LDL) AM EDT disease procedure are in Tachycardia the results Heart murmur section. Encounter for screening for lipid disorder BASIC METABOLIC PANEL Routine 07/07/2021 11:51 Hypertensive re nal Results for this (NON-FASTING) AM EDT disease procedure are in Tachycardia the results Heart murmur section. Encounter for screening for lipid disorder EKG 12-LEAD Routine 07/07/2021 10:53 Hypertensive renal AM EDT disease Tachycardia Heart murmur Encounter for screening for lipid disorder documented in this encounter Results (ABNORMAL) Protein Electrophoresis, urine, random (07/07/2021 11:52 AM EDT) [facility] Method Time Signature U Protein Ran 998 (H) 0 - 12 [facility] mg/dL [facility] U Albumin 86 % total [facility] U Globulin 14 % total [facility] U M Band None [facility] Detected [facility] U PEP See Note [facility] Comments [facility] Comment: There is no evidence of clonal free ligh t chains in this patient's urine sample. Specimen Anatomical Collection Method Collection Time Receive d Time (Source) Location / / Volume Laterality Urine Urine / Unknown 07/07/2021 11:52 07/13/19 22 6:54 AM EDT PM EDT Resulting Agency Comment Spec In Lab Robbie Subhash MD URINE ORDERABLES Performing Organization Address City/[facility]/ZIP Code Phon e Number [place] [phone] U Albumin/Cre Ratio (07/07/2021 11:52 AM EDT) [facility] Method Time Signature Alb/Cr Ratio, Not Calculated 0 - 29 [facility] Random mcg/mg Cr [facility] Comment: Reference Ranges: <30 mcg/mg: Normal 30-300 mcg/mg: Moderately increased albu minuria.* >300 mcg/mg: Severely increased albuminu shantanu. * ACEI or ARB recommended if diabetic; s uggested if BP>130/80 without diabetes ACEI or ARB strongly recommended if di abetic; recommended if BP>130/80 without diabetes Two of three specimens collected within a 3 to 6 month period should be abnormal before considering a patient to have albuminuria. Transient causes: exercise, fever, infection, CHF, marked hyperglycemia or hypertension. Persistent albuminuria indicates CKD and is an independent risk factor for ASCVD. ADA Standards of Medical Care in Diabete s-2016; KDIGO: Kidney International Supplements (2012) 2, 357? 362 U Albumin Conc, Random >4400.0 mg/L [facility] U Creatinine 134 mg/dL [facility] Specimen Anatomical Collection Method Collection Time Receive d Time (Source) Location / / Volume Laterality Urine Urine / Unknown 07/07/2021 11:52 07/12/19 22 3:37 AM EDT PM EDT Resulting Agency Comment Spec In Lab Robbie Cullen MD URINE ORDERABLES Performing Organization Address City/[facility]/[place]IP [place] [address] (ABNORMAL) Protein/Creatinine Ratio, urine (07/07/2021 11:52 AM EDT) [facility] Signature U Creatinine 134 mg/dL [facility] U Protein Ran 1,000 (H) 0 - 12 [facility] mg[facility]dL [facility] HOSPITAL LABORATORY Prot/Cre Ratio 7.5 ratio [facility] Specimen Anatomical Collection Method Collection Time Receive d Time (Source) Location / / Volume Laterality Urine Urine / Unknown 07/07/2021 11:52 07/12/19 22 3:37 AM EDT PM EDT Resulting Agency Comment Spec In Lab Robbie Cullen MD URINE ORDERABLES Performing Organization Address City/[facility]/ZIP [place] [address] (ABNORMAL) Urinalysis without microscopic (07/07/2021 11:52 AM EDT) [facility] gist Method Time Signature Glucose UA Negative Negative [facility] mg/dL [facility] Protein UA >=300 (A) Negative [facility] mg/dL [facility] Bilirubin UA Negative Negative [facility] mg/dL [facility] Comment: Clinical correlation required for positi ve Urine Bilirubin results as false positive may occur with some drugs and d rug related products. If a false positive is suspected a serum total bili max should be considered if clinically indicated. Urobilinogen UA Normal Normal mg/dL [facility] pH UA 6.0 5.0 - 8.0 [facility] Blood UA Small (A) Negative mg/dL [facility] Ketones UA Negative Negative mg/dL [facility] Nitrite UA Negative Negative [facility] Leukocytes UA Negative Negative mcL [facility] Appearance UA Clear Clear [facility] Spec Alpine UA 1.025 1.005 - 1.030 [facility] Color UA Dark Yellow Yellow [facility] LABOR[facility]ORY Specimen Anatomical Collection Method Collection Time Receive d Time (Source) Location / / Volume Laterality Urine 07/07/2021 11:52 07/07/2021 AM EDT 12:04 PM EDT Resulting Agency Comment Spec In Lab Delmis Iraheta MD URINE ORDERABLES Performing Organization Address City/[facility]/ZIP Code Phon e Number [place] [phone] HOSP[address] LABORATORY Drive (ABNORMAL) Hepatic Function Panel (07/07/2021 11:51 AM EDT) Analysis Performed At Path logist Time Signature Total Protein 5.5 (L) 6.1 - 8.0 [facility] g/dL [facility] Albumin 2.5 (L) 3.2 - 5.2 [facility] g/dL [facility] AST 37 0 - 39 [facility] unit/L [facility] ALT 24 0 - 55 [facility] unit/L [facility] Alk Phos 75 40 - 130 [facility]/L [facility] Total Not Perf 0.2 - 1.3 [facility] Bilirubin mg/dL [facility] Comment: Analyte stability exceeded; cal t not performed. Bili, Direct Not Perf 0.0 - 0.3 mg/dL [facility] Comment: Analyte stability exceeded; cal t not performed. Specimen Anatomical Collection Method Collection Time Receive d Time (Source) Location / / Volume Laterality Blood Venous Draw / 07/07/2021 11:51 07/07/2021 Unknown AM EDT 12:27 PM EDT Resulting Agency Comment Spec In Lab Robbie Cullen MD CHEMISTRY ORDERABLES Performing Organization Address City/[facility]/ZIP [place] [address] (ABNORMAL) Hepatitis A Antibody, Total (07/07/2021 11:51 AM EDT) Patholo gist Method Time Signature Hepatitis A Positive (A) Negative [facility] Ab [facility] LABORATORY Specimen Anatomical Collection Method Collection Time Receive d Time (Source) Location / / Volume Laterality Blood Venous Draw / 07/07/2021 11:51 07/11/2021 3:47 Unknown AM EDT PM EDT Resulting Agency Comment Spec In Lab Robbie Cullen MD IMMUNOLOGY ORDERABLES Performing Organization Address City/[facility]/Z[place] [address] Hepatitis B Surface Antigen (07/07/2021 11:51 AM EDT) Analysis Performed At Patho logist Time Signature HepB Surface Negative Negative [facility] LABORATORY Specimen Anatomical Collection Method Collection Time Receive d Time (Source) Location / / Volume Laterality Blood Venous Draw / 07/07/2021 11:51 07/11/2021 3:47 Unknown AM EDT PM EDT Resulting Agency Comment Spec In Lab Robbie Cullen MD CHEMISTRY ORDERABLES Performing Organization Address City/[facility]/ZIP [facility] [place] [address] Hepatitis B Surface Antibody (07/07/2021 11:51 AM EDT) P athologist Signature HepB Surface <3.5 IU/L [facility] Ab Quant [facility] Comment: HepB Surface Ab Quant: Unvaccinated: < 8.5 IU/L Vaccinated: > 11.5 IU/L HepB Surface Ab Negative [facility] Comment: Patient is presumed to be not vaccinated or immune to HBV infection. Expected Results: Vaccinated: Positive Unvaccinated: Negative Specimen Anatomical Collection Method Collection Time Receive d Time (Source) Location / / Volume Laterality Blood Venous Draw / 07/07/2021 11:51 07/11/2021 3:47 Unknown AM EDT PM EDT Resulting Agency Comment Spec In Lab Robbie Cullen MD IMMUNOLOGY ORDERABLES Performing Organization Address City/[facility]/[place] [address] Hepatitis B Core Antibody, Total (07/07/2021 11:51 AM EDT) Analysis Performed At Patho logist Time Signature Hep B Core Ab Negative Negative [facility] Specimen Anatomical Collection Method Collection Time Receive d Time (Source) Location / / Volume Laterality Blood Venous Draw / 07/07/2021 11:51 07/11/2021 3:47 Unknown AM EDT PM EDT Resulting Agency Comment Spec In Lab Robbie Cullen MD CHEMISTRY ORDERABLES Performing Organization Address City/[facility]/ZIP [facility] [place] [address] Hepatitis A Antibody, IgM (07/07/2021 11:51 AM EDT) Analysis Performed At Patho logist Time Signature Hepatitis A Negative Negative [facility] LABORATORY Specimen Anatomical Collection Method Collection Time Receive d Time (Source) Location / / Volume Laterality Blood Venous Draw / 07/07/2021 11:51 07/11/2021 3:47 Unknown AM EDT PM EDT Resulting Agency Comment Spec In Lab Robbie Cullen MD IMMUNOLOGY ORDERABLES Performing Organization Address City/[facility]/ZIP Code Phon e Number [address] (ABNORMAL) Free Light Chains, Serum (07/07/2021 11:51 AM EDT) Patholo gist Method Time Signature [place] Free 2.51 0.72 - [place] Light Chain 2.75 mg/dL [facility] Lambda Free 7.37 (H) 0.57 - [place] Light Chain 2.15 mg/dL [facility] [place] Lambda 0.3406 (L) 0.4000 - [facility] FLC Ratio 2.5800 [facility] Specimen Anatomical Collection Method Collection Time Receive d Time (Source) Location / / Volume Laterality Blood Venous Draw / 07/07/2021 11:51 07/11/2021 3:47 Unknown AM EDT PM EDT Resulting Agency Comment Spec In Lab Robbie Cullen MD CHEMISTRY ORDERABLES Performing Organization Address City/[facility]/ZIP [place] [address] C3 Complement (07/07/2021 11:51 AM EDT) P athologist Signature C3 Complement 162 90 - 180 [place] mg/dL [facility] Specimen Anatomical Collection Method Collection Time Receive d Time (Source) Location / / Volume Laterality Blood Venous Draw / 07/07/2021 11:51 07/11/2021 3:47 Unknown AM EDT PM EDT Resulting Agency Comment Spec In Lab Robbie Cullen MD CHEMISTRY ORDERABLES Performing Organization Address City/[facility]/ZIP Code Phon e Number [address] C4 Complement (07/07/2021 11:51 AM EDT) P athologist Signature C4 Complement 29 10 - 40 [place] mg/dL [facility] Specimen Anatomical Collection Method Collection Time Receive d Time (Source) Location / / Volume Laterality Blood Venous Draw / 07/07/2021 11:51 07/11/2021 3:47 Unknown AM EDT PM EDT Resulting Agency Comment Spec In Lab Robbie Cullen MD CHEMISTRY ORDERABLES Performing Organization Address City/State/ZIP [place] [address] CRP, acute inflammation (07/07/2021 11:51 AM EDT) P athologist Signature CRP <3.0 <=4.9 mg/L [facility] Specimen Anatomical Collection Method Collection Time Receive d Time (Source) Location / / Volume Laterality Blood Venous Draw / 07/07/2021 11:51 07/07/2021 Unknown AM EDT 12:27 PM EDT Resulting Agency Comment Spec In Lab Robbie Cullen MD CHEMISTRY ORDERABLES Performing Organization Address City/[facility]/Z[place] [address] (ABNORMAL) Vitamin D, 25-Hydroxy (07/07/2021 11:51 AM EDT) Patholo gist Method Time Signature 25-OH Vit D <5 (L) 21 - 100 [facility] Total ng/mL [facility] 25-OH Vit D Deficient [facility] LABORATORY Specimen Anatomical Collection Method Collection Time Receive d Time (Source) Location / / Volume Laterality Blood Venous Draw / 07/07/2021 11:51 07/11/2021 3:47 Unknown AM EDT PM EDT Resulting Agency Comment Spec In Lab Robbie Cullen MD CHEMISTRY ORDERABLES Performing Organization Address City/[facility]/ZIP [place] [address] Hepatitis C Antibody (07/07/2021 11:51 AM EDT) Analysis Performed At Patho logist Time Signature Hepatitis C Ab Negative Negative [facility] Specimen Anatomical Collection Method Collection Time Receive d Time (Source) Location / / Volume Laterality Blood Venous Draw / 07/07/2021 11:51 07/11/2021 3:47 Unknown AM EDT PM EDT Resulting Agency Comment Spec In Lab Robbie Cullen MD IMMUNOLOGY ORDERABLES Performing Organization Address City/State/[place] [address] TSH (07/07/2021 11:51 AM EDT) athologist Signature TSH 3.56 0.27 - 4.20 [facility] mcIU/mL [facility] Comment: Reference Interval (mcIU/mL): Females: ??First Trimester: 0.23-3.88 ??Second Trimester: 0.22-3.90 ??Third Trimester: 0.44-4.66 Specimen Anatomical Collection Method Collection Time Receive d Time (Source) Location / / Volume Laterality Blood 07/07/2021 11:51 07/07/2021 AM EDT 12:05 PM EDT Resulting Agency Comment Spec In Lab Delmis Iraheta MD CHEMISTRY ORDERABLES Performing Organization Address City/State/[place] [address] Basic Metabolic Panel (non-fasting) (07/07/2021 11:51 AM EDT) athologist [facility] Glucose Lvl 81 65 - 199 [facility] mg/dL [facility] Comment: Diabetes: >=200 mg/dL plus symp toms BUN 18 10 - 20 mg/dL [facility] Creatinine 0.99 0.80 - 1.50 mg/dL [facility] Sodium 140 135 - 145 mmol/L [facility] Potassium 4.3 3.5 - 5.0 mmol/L [facility] Comment: Please note: ??Patients with WBC >100,00 0 may have falsely elevated Potassium levels. ??For accurate Potassium quantif ication in these patients send serum separator tube (gold top) for subsequent determinations. ??Contact the Clinical Chemistry Laboratory if there are any qu estions. Chloride 105 98 - 107 mmol/L [facility] CO2 28 22 - 31 mmol/L [facility] Anion Gap 7 5 - 15 mmol/L [facility] Calcium 8.5 8.5 - 10.5 mg/dL [facility] Estimated GFR 82 >=60 mL/min/1.73 m?? [facility] Comment: This patient? s estimated glomerular filtration rate (eGFR) is between 82 mL/min/1.73 m2 (patients with less muscl e mass per kg body weight) and 96 mL/min/1.73 m2 (patients with more muscl e mass per kg body weight) as determined by the CKD-EPI equation. Asse ssment of eGFR is not appropriate when creatinine concentrations are rapidly ch anging. For clinical decisions where creatinine clearance will affect therapy , a 24-hour urine creatinine clearance may be advised. Assignment of CKD stage 1 - 5 for patien ts with an eGFR near the transition point between stages may be based on cli nical assessment of muscle mass and symptoms in addition to eGFR. Specimen Anatomical Collection Method Collection Time Receive d Time (Source) Location / / Volume Laterality Blood 07/07/2021 11:51 07/07/2021 AM EDT 12:05 PM EDT Resulting Agency Comment Spec In Lab Delmis Iraheta MD CHEMISTRY ORDERABLES Performing Organization Address City/State/[place] [address] (ABNORMAL) Apolipoprotein B (07/07/2021 11:51 AM EDT) [facility] Method Time Signature Apolipoprotein B 207 (H) mg/dL [facility] Comment: REFERENCE VALUE------ Desirable: <90 Above Desirable: 90-99 Borderline high: 100-119 High: 120-139 Very high: > or = 140 Test Performed by: [facility] - [address] [address] [place]: Norris Natarajan M.D. Ph. D.; CLIA# [id number] Specimen Anatomical Collection Method Collection Time Receive d Time (Source) Location / / Volume Laterality Blood 07/07/2021 11:51 07/07/2021 4:04 AM EDT PM EDT Resulting Agency Comment Spec In Lab Delmis Iraheta MD CHEMISTRY ORDERABLES Performing Organization Address City/State/[place] [address] Lipid Panel (Reflex Direct LDL) (07/07/2021 11:51 AM EDT) athologist Signature Chol, Total 340 mg/dL [facility] Comment: Lower Risk: <200 mg/dL Average Risk: 200-239 mg/dL Higher Risk: >fy=344 mg/dL Triglycerides 210 mg/dL [facility] Comment: Average Risk/Lower Risk: <150 mg/dL Borderline High Risk: 150-199 mg/dL High Risk: 200-499 mg/dL Very High Risk: >wg=039 mg/dL HDL 46 mg/dL [facility] Comment: Males: ?? Higher Risk: <40 mg/dL Females: ?? Higher Risk: <50 mg/dL LDL Cholesterol 252 mg/dL [facility] Comment: Lowest Risk: <100 mg/dL Lower Risk: 100-129 mg/dL Borderline High Risk: 130-159 mg/dL High Risk: 160-189 mg/dL Very High Risk: >ws=890 mg/dL Chol/HDL Ratio 7.4 ratio [facility] Lipid Interpretation See Note [facility] Comment: Lipid management should be guided by a p atient? s ASCVD risk, goals and preferences. ACC/AHA Guidelines recommend high intens ity statin if clinical ASCVD or LDL greater than or equal to 190 mg/dL. http://[employer].com/WAY-HAX-Ophsagyup Adults aged 40-75 with LDL 70-189 mg/dL should have their 10 year ASCVD risk estimated with the ACC/AHA ASCVD risk es timator http://tools.acc.org/PXZGK-Gqca-Vsunyzyi r/ Statin should be discussed if risk great er than or equal to 7.5% in non-diabetics. With diabetes, moderate i ntensity statin is recommended if risk less than 7.5%, high intensity if risk g reater than or equal to 7.5%. Annual lipid monitoring on statins is no t necessary. Evaluate secondary causes of Triglycerid es greater than 500 mg/dL or LDL greater than 190 mg/dL: See table 6 of A CC/AHA Guideline. Lifestyle modification is a critical com ponent of ASCVD risk reduction. Specimen Anatomical Collection Method Collection Time Receive d Time (Source) Location / / Volume Laterality Blood 07/07/2021 11:51 07/07/2021 AM EDT 12:05 PM EDT Resulting Agency Comment Spec In Lab Delmis Iraheta MD CHEMISTRY ORDERABLES Performing Organization Address City/State/[place] [address] documented in this encounter Visit Diagnoses Diagnosis Hypertensive renal disease Unspecified hypertensive kidney disease with chronic kidney disease stage I through stage IV, or unspecified Tachycardia Tachycardia, unspecified Heart murmur Undiagnosed cardiac murmurs Encounter for screening for lipid disord er documented in this encounter Care Teams Tube Man Relationship Specialty Start Date End Date Esau Serrano PA PCP - General Family Medicine 06/01/21 [address] [place] [address] documented as of this encounter
--- OUTSIDE RECORDS SUMMARY | 2022-01-24 10:46 | XMS_ITS | Encounter Summary ---
:1960 Author Organization [facility] [place] [address] Care Team Providers Name Role Phone Esau Serrano Primary Care Provider Encounter Details Date Type Department Care Team Description 06/14/2021 Ext Surgery or [facility] Colten Diaz Hy pertension, Single [facility] unspecified type [address] [facility] [address] [place], [place] [phone] Social History Tobacco Use Types Packs/Day Years Used Date Never Smoker Smokeless Tobacco: Never Used Sex Assigned at Date Recorded Male 07/03/2021 3:24 PM EST documented as of this encounter Plan of Treatment Not on filedocumented as of this encounter Procedures Procedure Name Priority Date/Time Associated Diagnosis Comme nts ECHO SCAN (SCAN) 06/14/2021 12:00 AM Resu lts for this EST procedure are i n the results section. documented in this encounter Results SCAN DOC: ECHO (06/14/2021 12:00 AM EST) Narrative This result has an attachment that is no t available. Unknown MEDIA MGR SCAN EXT ORDR/RSLT documented in this encounter Visit Diagnoses Diagnosis Hypertension, unspecified type documented in this encounter Care Teams Sales Service Technician Relationship Specialty Start Date End Date Esau Serrano PA PCP - General Family Medicine 06/01/21 [address] [place] [address] documented as of this encounter
--- OUTSIDE RECORDS SUMMARY | 2022-01-24 10:46 | XMS_ITS | Encounter Summary ---
:1960 Author Organization [facility] Address [facility] [place] [address] Care Team Providers Name Role Phone Esau Serrano Primary Care Provider Encounter Details Date Type Department Care Team Description 07/27/2021 Telephone Nephrology Hypertension at Robbie Cullen MD [facility] Georgina deg[place] [address] [place] [address] [phone] (Wo rk) Social History Tobacco Use Types Packs/Day Years Used Date Never Smoker Smokeless Tobacco: Never Used Sex Assigned at Date Recorded Male 07/03/2021 3:24 PM EST documented as of this encounter Miscellaneous Notes Telephone Encounter - Robbie Cullen MD - 07/27/2021 2:18 PM EDT Called patient to discuss labs and discuss about possible biopsy. Left a voice message. documented in this encounter Plan of Treatment Not on filedocumented as of this encounter Visit Diagnoses Not on filedocumented in this encounter Care Teams Backrest Assembler Relationship Specialty Start Date End Date Esau Serrano PA PCP - General Family Medicine 06/01/21 [address] [place] [address] documented as of this encounter
--- OUTSIDE RECORDS SUMMARY | 2022-01-24 10:46 | XMS_ITS | Encounter Summary ---
:1960 Author Organization [facility] [place] [address] Care Team Providers Name Role Phone HeribertoBruce JOVAN Primary Care Provider Reason for Visit Reason Comments Rash Consultation (Routine) - Specialty Diagnoses / Procedures Referred By Contact Refer red To Contact Dermatology Diagnoses Rash and other nonspecific skin eruption Rash Esau Serrano PA [facility] Dermatology Procedures Consult [address] [place] [address] [place] [address] Fax: Referral ID Status Reason Start Date Expiration Date Visits V [email or web address] Requested Authorized [id number] Consult, Test 07/25/2018 01/24/2019 6 6 & Treat PCP Updated and/or Approved Encounter Details Date Type Department Care Team Description 08/01/2018 Office Visit Dermatology at Vidal Kahn MD [facility] [place] [address] Notalgia paresthetica; Road Meme Manrique PA [facility] [place] [address] Allergic contact dermatitis, unspecified trigger [address] [place] [address] Social History Tobacco Use Types Packs/Day Years Used Date Never Smoker Sex Assigned at Date Recorded Male 07/03/2021 3:24 PM EST documented as of this encounter Patient Instructions Patient InstructionsSilvia Blankenship - 08/01/2018 2:00 PM EDT Images from the original note were not included. Recommendations: - Switch to All Free & Clear laundry detergent. - Use Dove sensitive skin bar soap but only on the dirty areas. - Rx: Clobetasol 0.05% ointment - Apply to affected areas on the trunk and extremities twice daily for up to 2 weeks, then take 1 week off. Repeat the cycle as needed. - Take Claritin 10mg daily in the AM. documented in this encounter Progress Notes Meme Manrique PA - 08/01/2018 2:00 PM EDT DERMATOLOGY - NEW PATIENT CONSULT NOTE Date of service: 08/01/2018 Jong Copeland : 1960, 58 y.o. CC: Chief Complaint Patient presents with ??? Rash HPI: Jong Copeland is a 58 y.o. male seen in consultation at the request of Esau Serrano fora rash on the torso and face that has been present for about 2 months. He has treated with antifungals and oral antibiotics with some improvement. He also takes hydroxyzine twice daily for itching. He has also been prescribed both a course of ivermectin and a 12-day course of prednisone (60, 40, 20, 10) for this rash. He reports that he felt great on the prednisone taper. He takes chlorthalidone and lisinopril for his blood pressure. He was switched from hydrochlorothiazide about 2 years ago. His symptoms are severe itching at night and at times almost a burning/heated feeling. He has not recently changed his diet or any of his personal hygiene products. He uses Purex laundry detergent, Ivory soap, and an anti-dandruff shampoo. He notes that when his 's hair rests on him, the areas that it's touching will become very itchy. He is unsure if this is related to any of the hair products that she uses. Relevant Skin History: - Okay to leave detailed message with results? 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 hydrOXYzine (ATARAX) 50 mg Tablet 1 No current facility-administered medications for this visit. Allergies: No Known Allergies Review of Systems: - General: Feels well. - Skin: No other skin concerns. Examination: - Constitutional: Patient was alert, well-appearing and in no noticeable distress. - Skin: Examination of skin from the waist up was performed. This includes examination of the skin of the face, ears, scalp, neck, chest, axillae, left and right upper extremities, hands, back, and abdomen. Diagnosis/Skin findings/Assessment/Plan: 1. Allergic contact dermatitis - Left arm, left abdomen, and right back: Eczematous dermatitis. - Recommended patient switch his laundry detergent to All Free & Clear. - Use Dove sensitive skin bar soap but only on the dirty areas. - Rx: Clobetasol 0.05% ointment - Apply to affected areas on the trunk and extremities twice daily for up to 2 weeks, then take 1 week off. Repeat the cycle as needed. - Apply CeraVe moisturizing cream to all clear areas of skin daily after showering. - Take Claritin 10mg daily in the AM. - If not resolving with this regimen in 3 weeks, will likely biopsy. - Briefly discussed option to patch test if necessary. 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 - Discussed etiology of this condition. - Patient reassured of benign nature. - No treatment necessary. LOS: [id number] RTC: 3 weeks for allergic contact dermatitis follow up, sooner if needed. Scheduled upon exiting. Note initiated by Shelli Hogue CMA. I, Silvia Blankenship, have performed the documentation for this encounter in the presence of and acting as a scribe for Meme Manrique PA-C (Bri). I performed the services which were documented by the scribe, and I agree with the accuracy of the documentation in this encounter. Meme Manrique PA-C (Bri) Reviewed and signed by Meme B. Hilaria, PA-C [facility] Patient seen in conjunction with staff emergency response technician: Ailyn Wheeler MD Section of Dermatology [facility] Ailyn Wheeler MD - 08/01/2018 2:00 PM EDT Patient seen and examined with Apple Manrique PA-C. We reviewed the patient's history. I personally examined the patient. We discussed the assessment and plan. Specifically, ?? Expand All Collapse All I have seen and examined this patient.?? I evaluated the skin findings: ??- I noted patient with fairly well circumscribed very itchy scattered, edematous, erythematous plaques I went over the patient's history and discussed the symptoms. I discussed recommendations and therapeutic measures. ??- I agree with plan as documented by Apple Manrique PA-C. We will see the patient back as planned; they will call if problems arise. Patient seen in conjunction with Meme Manrique PA-C (Bri) Signed by: AILYN WHEELER MD Section of Dermatology [facility] documented in this encounter Plan of Treatment Not on filedocumented as of this encounter Visit Diagnoses Diagnosis Notalgia paresthetica Disturbance of skin sensation Allergic contact dermatitis, unspecified trigger documented in this encounter Care Teams Digital Director Relationship Specialty Start Date End Date Bruce Louis ND PCP - General 03/16/10 10/01/[address] [address] documented as of this encounter
--- OUTSIDE RECORDS SUMMARY | 2022-01-24 10:46 | XMS_ITS | Encounter Summary ---
:1960 Author Organization [facility] Address [place] [address] Care Team Providers Name Role Phone Bruce Louis JOVAN Primary Care Provider Reason for Visit Reason Comments Follow-up Encounter Details Date Type Department Care Team Description 08/22/2018 Office Visit Dermatology at Do emmett Rayo MD [facility] [address] [place] [address] Meme Manrique PA [facility] [place] [address] dermatitis, [address] [place] [address] Social History Tobacco Use Types Packs/Day Years Used Date Never Smoker Sex Assigned at Date Recorded Male 07/03/2021 3:24 PM EST documented as of this encounter Progress Notes Meme Manrique PA - 08/22/2018 8:00 AM EDT Images from the original note were not included. DERMATOLOGY - ESTABLISHED PATIENT FOLLOW-UP Date of service: 08/22/2018 Jong Copeland : 1960, 58 y.o. CC: Chief Complaint Patient presents with ??? Follow-up HPI: Jong Copeland is a 58 y.o. male sLast seen by myself on 08/01/2018. Patient is here for a follow up of a non-specific but steroid-responsive dermatitis, which he has been treating with clobetasol ointment. He switched to All Free & Clear laundry detergent and Dove sensitive skin bar soap. He has also been using Dove sensitive skin bar soap to wash his hair, which seems to have helped his dandruff/scalp itching. He reports that his abdomen is clear, but his back and lower legs are not. He states that the 12-day prednisone taper that he was prescribed before coming here nearly cleared his rash. He endorses some slight swelling in his ankles at the end of the day. Relevant Skin History: - Okay to leave [...] and in no noticeable distress. - Skin: An examination of the face, arms, abdomen, back, and lower legs was performed. Diagnosis/Skin findings/Assessment/Plan: 1. Possible contact dermatitis with superficial staph folliculitis and venous stasis dermatitis - Right back: Scattered follicular pustules with underlying PIH and erythema of the right medial scapularregion. Eczematous dermatitis of the right arm, posterior neck, and left flank. - Continue washing clothes with All Free & Clear laundry detergent. Also continue using Dove sensitive skin bar soap on the dirty areas. - Rx: Doxycycline 100mg (#20) - Take 1 tablet twice daily for 14 days. - Rx: Prednisone taper (20mg, #30) - 60mg each morning x 5 days, then 40mg each morning x 5 days, then 20mg each morning x 5 days. Reviewed side effects, including but not limited to GI upset, mood change, irritability, difficulty sleeping, increases in blood pressure, increase in blood sugar, thinning of skin and bones, osteonecrosis of the hip. - Continue treating with clobetasol 0.05% ointment. Apply to affected areas on the trunk and extremities twice daily for up to 2 weeks, then take 1 week off. Repeat the cycle as needed. - Apply CeraVe moisturizing cream to all clear areas of skin daily after showering. - Take Claritin 10mg daily in the AM. - Patient is interested in patch testing. - Recommended patient start wearing compression stockings daily. Photos taken (by Apple Manrique) and documented with patient consent. LOS: [id number] RTC: For next available patch testing, sooner if needed. Scheduled upon exiting. Note [...] PA-C (Bri) Reviewed and signed by Meme Manrique PA-C [facility] Patient seen in conjunction with staff balloon tester: Lisa Pena MD Section of Dermatology [facility] Lisa Pena MD - 08/22/2018 8:00 AM EDT History of possible ACD, treated with cobetasol and sensitive skin care. Some area have improved. Pruritus persists, new pustules on the back and abdomen. Few thin eczematous plaques on the arms, elbows and thicker prurigo type papules on the lower legs. ?background notalgia paresthetica. Will treat folliculitis, which is relatively widespread, with doxycycline, address eczematous dermatitis with prednisone taper, and consider patch testing. Risks and benefits discussed as outlined in PA note. Patient seen in conjunction with Meme Manrique PA-C (Bri) Signed by: LISA PENA MD Section of Dermatology [facility] documented in this encounter Plan of Treatment Not on filedocumented as of this encounter Visit Diagnoses Diagnosis Allergic contact dermatitis, unspecified trigger documented in this encounter Care Teams Advertising Display Rotator Relationship Specialty Start Date End Date Bruce Louis ND PCP - General 03/16/10 10/01/18 [facility] [address] [place] [address] documented as of this encounter
--- OUTSIDE RECORDS SUMMARY | 2022-01-24 10:46 | XMS_ITS | Encounter Summary ---
:1960 Author Organization [facility] [place] [address] Care Team Providers Name Role Phone Esau Serrano Primary Care Provider Reason for Visit Consultation (Routine) - Authorized Specialty Diagnoses / Procedures Referred By Contact Refer red To Contact Nephrology Diagnoses Proteinuria, unspecified type Hypoalbuminemia Esau Serrano PA [facility] Nephrology 2m [address] [place] [address] [place] [address] Fax: Referral ID Status Reason Start Expiration Visits Visits Date Date Requested Authorized [id number] Authorized Consult, 05/27/2021 05/27/2022 12 12 Test & Treat PCP Updated and/or Approved Encounter Details Date Type Department Care Team Description 07/12/2021 Office Visit Nephrology Hypertension Cassandra Cullen MD Nephrotic syndrome at [facility] [place] [address] NEPHR[address]Y DEPT. [phone] [place], [place] [address] Social History Tobacco Use Types [...] EDT Inhaled Oxygen Concentration - - Weight - - Height - - Body Mass Index - - documented in this encounter Progress Notes Robbie Cullen MD - 07/12/2021 3:00 PM EDT HYPERTENSION/ NEPHROLOGY CONSULT NOTE PATIENT: Jong Copeland : 1960 REASON FOR CONSULTATION: Consulted for proteinuria HPI: 61 y.o. male with PMHx significant for allergic contact dermatitis, HTN,LBBB history of basal cell carcinoma of the face, fatty liver, elevated BMI, referred by his primary care provider due to hypoalbuminemia and proteinuria. He noticed swelling bilateral feet about December 2021, went to bushing press operator who put him on Dandelionafter which, the edema got better. Recently, 2 weeks ago, he went for a to [place] which was 11 hourslong which worsened his edema and now it is much better. About a month prior to his edema, he had upper respiratory tract infection ( COVID neg ) for which he was treated with antibiotics, but his upper respiratory symptom, cough still persisted for months. He had fatigue which started with his upper respiratory symptoms and is progressively getting worse. NSAIDs- Ibuprofen- he was taking approx once a week in dec 2020. He went for colonoscopy 2 months ago and he was found to have tachycardia and hypertension and edemaand was advised cardiology and nephrology appointment. HTN- 20 yrs, HCTZ was on it the longest and he was taken off it because of stress on kidneys manyyears ago. Currently he is not taking any medications. Lisinopril and Losartan too did cause cramping. Lisinopril caused cough. He follows with a naturopathic provider and takes hypertension formula, Dandelion leaf, rauwolfia, ubiqunol, Riboflavin 400 mg, Nattokinas 100 mg. (Naturopathic medications He was seen by hydraulic specialist Dr. Delmis Iraheta, who started him on high-dose statin for his hypercholesterolemia. Rash - predominantly in the back mildly erythematous going on for approx 5 years, itchy, follows up with dermatology for allergic contact dermatitis. He does not have arthralgia, arthritis, oral ulcers, has allergies in his scalp, no red eyes, no sinusitis, no ear discharge. Has not vaccinated against COVID. No nausea, vomiting diarrhea. Relevant labs done today: Urine protein creatinine ratio-7.5 Urine albumin concentration more than 4.4 g (albumin/creatinine not calculated) UA showed small blood. [id number] C4 29-normal CRP less than 3 Normal LDL cholesterol-252 25-hydroxy vitamin D-less than 5 Hepatitis in A/B/C-negative (immune to hepatitis A) Past medical history- Allergic contact dermatitis He will be reviewed ? Fatty liver Elevated BMI Family History- Mother Had OK Personal History- Never smoker. Review of system- A 10 point review of system including cardiovascular, neurological, pulmonary, gastrointestinal was done, everything was negative except for what was mentioned above. Social History Socioeconomic History ??? Marital status: [...] on file Housing Stability: Not on file Outpatient medications: Current Outpatient Medications on File Prior to Visit Medication Sig Dispense Refill ??? COQ10, UBIQUINOL, ORAL coQ10 (ubiquinol) 200mg capsule /day ??? DANDELION ORAL dandelion Taraxicum Williamson extract 80 drops 2-3 times /day for diuretic ??? potassium/vit C/mins/herbal 17 (HTN COMPLEX ORAL) HTN Complex HTN 180 PX extra 1 cap at night ??? soybean, fermented (Nattokinase) 50 mg Capsule Nattokinase 1 cap (100mg) 1xday-to prevent clots ??? riboflavin, Vitamin B2, (Vitamin B2) 100 mg Tablet riboflavin (vitamin B2) 1 cap 400mg/day ??? rosuvastatin (Crestor) 40 mg Tablet Take 1 tablet by mouth daily. (Patient not taking: Reported on 07/12/2021) 30 tablet 1 ??? clobetasol (TEMOVATE) 0.05 % Solution Apply a few drops to each affected area of the scalp bid as needed for itching (Patient not taking: No sig reported) 50 mL 3 ??? clobetasol-emollient (TEMOVATE E) 0.05 % Cream Apply thin layer to trunk and extremities bid as needed for rash/itching. Use no more than 3w of the month (Patient not taking: No sig reported) 60 g 3 ??? doxycycline monohydrate (MONODOX) 100 mg Capsule Take 1 capsule by mouth 2 times daily. (Patientnot taking: No sig reported) 28 capsule 0 ??? predniSONE (DELTASONE) 20 mg Tablet 60mg each morning x 5 days, then 40mg each morning x 5 days,then 20mg each morning x 5 days. (Patient not taking: No sig reported) 30 tablet 0 ??? hydrOXYzine (ATARAX) 50 [...] week off. Repeat the cycle as needed. (Patient not taking: No sig reported) 60 g 2 No current facility-administered medications on file prior to visit. MEDICATIONS: Allergies Allergen Reactions ??? Chlorthalidone Major cramping ??? Hydrochlorothiazide Major cramping ??? Lasix [Furosemide] major cramping ??? Lisinopril Continuous cough PHYSICAL EXAM: Last value Range last 24 hrs Temperature Temp: -- Heart Rate Heart Rate: 94 Heart Rate: -- Blood Pressure BP: 121/87 BP: -- Respiratory Rate Resp: 18 Resp: -- SpO2 SpO2: 97 % SpO2: -- Patient is awake alert did not seem to be in acute distress No jaundice oral mucosa moist Neck- supple trachea central Chest- bilateral air entry present clear to auscultation no wheeze no crepitation CVS-S1-S2 present, no murmur regurgitation gallops. Abdomen-nontender nondistended, bowel sounds present. Extremities-peripheral pulses present, bilateral edema noted. Neuro-patient is awake alert, moving all 4 limbs, motor examination is grossly normal. STUDIES: Labs: CBC: No results for input(s): WBC, HGB, PLATELET in the last 7068 hours. Chemistry: Recent Labs 07/07/21 1151 NA 140 K 4.3 CL 105 CO2 28 BUN 18 CREATININE 0.99 GLUCOSE 81 Recent Labs 07/07/21 1151 CALCIUM 8.5 LFT's: Recent Labs 07/07/21 1151 BILITOT Not Perf BILIDIR Not Perf ALBUMIN 2.5* ALKPHOS 75 ALT 24 AST 37 Prot/Cre Ratio Date Value Ref Range Status 07/07/2021 7.5 ratio Final No results found for: TPROTEINPEP, ALBELECT Lab Results Component Value Date MICROALBUR >4,400.0 07/07/2021 No results found for: HA1C Lab Results Component Value Date CALCIUM 8.5 07/07/2021 25-OH Vit D Total (ng/mL) Date Value Status 07/07/2021 <5 (L) Final IMPRESSION/ RECOMMENDATIONS: \Jong Copeland is a 61 y.o. male with nephrotic syndrome. He has nephrotic syndrome with, hypoalbuminemia, edema, hypercholesterolemia, low vitamin D levels. He has progressively worsening fatigue. Urine protein creatinine ratio-7.5 Urine albumin concentration more than 4.4 g (albumin/creatinine not calculated) UA showed small blood. C3-1 62-normal C4 29-normal CRP less than 3 Normal LDL cholesterol-252 25-hydroxy vitamin D-less than 5 Hepatitis in A/B/C-negative POCUS- mildly enlarged kidneys, no hydro. Bladder no post void urine. Urine-multiple oval fat bodies noted. #Nephrotic syndrome- Differentials are broad but membranous nephropathy, Amyloid or minimal-change disease is high in thedifferential. Even though he has minimal blood in his urine, his complements are normal, hepatitis panel is normal, and he does not have an elevated CRP. He has abnormal FLC with increased lambda. Awaiting SPEP and UPEP. #Hypovitaminosis D- -He has severe hypovitaminosis D due to his nephrotic syndrome. -recommended on vitamin D 2000 units daily. -He is okay with and agreed to taking vitamin D 2000 units daily. #Hypercholesterolemia-patient was started on statin by his hydraulic specialist, he is yet to pick it up from the pharmacy. # TSH- normal. #Anticoagulation- -He will be a candidate for anticoagulation but will wait till biopsy is done before we decide on any anticoagulation. Even though I briefly mentioned about this during the visit, since Mr. Copeland is very concerned about any new medications, I will discuss with him in detail regarding this. #Immunization status- Patient has less family is concerned about the safety of COVID-19 vaccination, and Access has not received any COVID-19 vaccinations to date. We discussed at length regarding possible need for immunosuppression, and loss of antibodies (globulins) with his nephrotic syndrome which will put him at a very high risk of infections including COVID-19. He has concerned about COVID-19 vaccines especially because his family members had adverse effects including aneurysm formation which he attributes to COVID-19 vaccinations. He has significant intolerance to antihypertensive medications in the past including hydrochlorothiazide (which had taken for many years for hypertension), chlorthalidone, lisinopril and losartan. These adverse reactions, from what I understood from the conversation when not allergy mediated, but thathis body cannot tolerate these medications. Recently was started on furosemide 10 mg for his edema which caused severe cramping in his muscles and so it was stopped. At this point of time, he is tolerating the medications given by his bushing press operator and wants to continue that. I discussed at length regarding proteinuria, GREGORY/ARB including lisinopril/losartan for his proteinuria, but did not want to consider taking those medications. Since he has progressively worsening fatigue and therefore we will consider other immunological labsincluding ANCA, TONY, anti-GBM. Awaiting SPEP UPEP. He has abnormal FLC. Plan/Recommendations: We need renal biopsy to ascertain the etiology of his nephrotic syndrome but will wait for AMOL 2R antibody results. If AMOL 2R antibodies are positive we might forego biopsy. We will advise him to hold all antiplatelet /anticoagulants prior to biopsy. Avoid nephrotoxic medications Please renally dose all meds. Thanks for letting us participate in the care of this patient. A total of more than 60 minutes was spent for reviewing chart, ugpn-cf-ewih encounter, ordering labs/medication and coordinating care. CC-ELVIS Dixon MD 07/15/2021 Hypertension-Nephrology [facility] documented in this encounter Plan of Treatment Not on filedocumented as of this encounter Procedures Procedure Name Priority Date/Time Associated Comments Diagnosis [facility] PHOSPHOLIPASE A2 Routine 07/12/2021 4:57 Nephrotic synd deanna Results for this RECEPT AB SCREEN PM EDT procedure a re in the results section. [facility] P[facility] ANTINEUTROPHIL Routine 07/12/2021 4:57 Nephrotic syndro me Results for this CYTOPLASMIC ABS PM EDT procedure ar e in the results section. HC PROTEINASE-3 Routine 07/12/2021 4:57 Nephrotic syndrome Res ults for this AUTOANTIBODIES PM EDT procedure are in the results section. HC MYELOPEROXIDASE Routine 07/12/2021 4:57 Nephrotic syndrome Results for this AUTOANTIBODIES PM EDT procedure are in the results section. HC VENIPUNCTURE Routine 07/12/2021 4:57 Nephrotic syndrome Res ults for this PM EDT procedure are i n the results section. HC PCH ANATITRE Routine 07/12/2021 4:57 Nephrotic syndrome Res ults for this (ANDPATTERN) PM EDT procedure are i n the results section. documented in this encounter Results (ABNORMAL) Sedimentation rate (07/12/2021 4:57 PM EDT) P athologist Signature Sed Rate 67 (H) 2 - 37 [facility] mm/hr [facility] Comment: Effective April 03, 2019 new capillar y photometric technology has resulted in a change in reference ranges. It is r ecommended that each ESR result be reviewed with its own age appropriate re ference range. Specimen Anatomical Collection Method Collection Time Receive d Time (Source) Location / / Volume Laterality Blood 07/12/2021 4:57 PM 5:09 EDT PM EDT Resulting Agency Comment Spec In Lab Robbie Cullen MD HEMATOLOGY ORDERABLES Performing Organization Address City/State/[place] [address] Phospholipase A2 Receptor Ab (07/12/2021 4:57 PM EDT) athologist Signature PLA2R, IFA Negative Negative [facility] Comment: ADDITIONAL INFORMATIO N This test was developed and its performa nce characteristics determined by [facility] in a manner co nsistent with CLIA requirements. This test has not bee n cleared or approved by the U.S. Food and Drug Admin istration. Test Performed by: [facility] [place] [place] [address] Web Site Developer: Norris Natarajan M.D. Ph. D.; CLIA# [id number] PLA2R, ALIX <2 [facility] Comment: REFERENCE VALUE------ <14 RU/mL: Negative 14-19 RU/mL: Borderline >19 RU/mL: Positive Test Performed by: [facility] [place] [address] Web Site Developer: Norris Natarajan M.D. Ph. D.; CLIA# [id number] Specimen Anatomical Collection Method Collection Time Receive d Time (Source) Location / / Volume Laterality Blood 07/12/2021 4:57 PM 2 9:03 EDT AM EDT Resulting Agency Comment Spec In Lab Robbie Cullen MD CHEMISTRY ORDERABLES Performing Organization Address City/State/[place] [address] Proteinase-3 Antibody (07/12/2021 4:57 PM EDT) athologist Signature PR3 Ab <0.7 <=1.9 [facility] unit/mL [facility] Specimen Anatomical Collection Method Collection Time Receive d Time (Source) Location / / Volume Laterality Blood 07/12/2021 4:57 PM 2 7:27 EDT AM EDT Resulting Agency Comment Spec In Lab Robbie Cullen MD CHEMISTRY ORDERABLES Performing Organization Address City/State/ZIP Code Phon e Number [address] Myeloperoxidase Ab (07/12/2021 4:57 PM EDT) P athologist Signature MPO Ab <0.3 <=3.4 [facility] unit/mL [facility] Specimen Anatomical Collection Method Collection Time Receive d Time (Source) Location / / Volume Laterality Blood 07/12/2021 4:57 PM 2 7:27 EDT AM EDT Resulting Agency Comment Spec In Lab Robbie Cullen MD CHEMISTRY ORDERABLES Performing Organization Address City/[facility]/ZIP Code Phon e Number [address] Cytoplasmic Neutrophilic Ab (07/12/2021 4:57 PM EDT) athologist Signature C-ANCA Negative Negative [facility] Comment: Test Performed by: [facility] [address] [place] [address] Web Site Developer: Norris Natarajan M.D. Ph. D.; CLIA# [id number] P-ANCA Negative Negative [facility] Comment: Negative for cANCA and pANCA patterns by immunofluorescence. ADDITIONAL INFORMATIO N This test was developed and its performa nce characteristics determined by [facility] in a manner co nsistent with CLIA requirements. This test has not been gardenia ared or approved by the U.S. Food and Drug Administration. Test Performed by: [facility] [address] [place] [address] Web Site Developer: Norris Natarajan M.D. Ph. D.; CLIA# [id number] Specimen Anatomical Collection Method Collection Time Receive d Time (Source) Location / / Volume Laterality Blood 07/12/2021 4:57 PM 2 9:03 EDT AM EDT Resulting Agency Comment Spec In Lab Robbie Cullen MD CHEMISTRY ORDERABLES Performing Organization Address City/[facility]/ZIP Code Phon e Number MARÍA [address] TONY (07/12/2021 4:57 PM EDT) Component Value Ref Test Analysis Performed At [facility] Range Method Time Signature Antinuclear Ab MARÍA Test ?Result ? Flag ??Unit ??RefValue [facility] Antinuclear Ab, HEp-2 ? <1:80 (Negative) ? <1:80 (Negative) HOSPITAL ??Substrate, S LABORATORY ? ADDITIONAL INFORMATION ------ ?Method: Immunofluorescence using HEp-2 cellular substr ate. ?Test Performed by: ?[facility] [employer] [facility] ?[address] [place] [address] ?Web Site Developer: Norris Natarajan M.D. Ph.D.; CLIA# [id number] Specimen Anatomical Collection Method Collection Time Receive d Time (Source) Location / / Volume Laterality Blood 07/12/2021 4:57 PM 2 9:03 EDT AM EDT Resulting Agency Comment Spec In Lab Robbie Cullen MD IMMUNOLOGY ORDERABLES Performing Organization Address [facility]/ZIP Code Phon e Number MARÍA [address] documented in this encounter Visit Diagnoses Diagnosis Nephrotic syndrome Nephrotic syndrome with unspecified path ological lesion in kidney documented in this encounter Care Teams Criminal Psychologist Relationship Specialty Start Date End Date Esau Serrano PA PCP - General Family Medicine 06/01/21 [address] [place] [address] documented as of this encounter
--- OUTSIDE RECORDS SUMMARY | 2022-01-24 10:46 | XMS_ITS | Encounter Summary ---
:1960 Author Organization [facility] [place] [address] Care Team Providers Name Role Phone Esau Serrano Primary Care Provider Encounter Details Date Type Department Care Team Description 06/30/2021 Telephone Cardiology at [facility] [place] [address] Social History Tobacco Use Types Packs/Day Years Used Date Never Smoker Smokeless Tobacco: Never Used Sex Assigned at Date Recorded Male 07/03/2021 3:24 PM EST documented as of this encounter Miscellaneous Notes Telephone Encounter - [place] Mason LNA - 07/06/2021 2:16 PM EDT *Left message asking patient to bring an updated medication list for their upcoming Clinic Visit on 07/07/[address] Iraheta. documented in this encounter Plan of Treatment Not on filedocumented as of this encounter Visit Diagnoses Not on filedocumented in this encounter Care Teams Surgery Specialist Relationship Specialty Start Date End Date Esau Serrano PA PCP - General Family Medicine 06/01/21 [address] [place] [address] documented as of this encounter
--- OUTSIDE RECORDS SUMMARY | 2022-01-24 10:46 | XMS_ITS | Encounter Summary ---
:1960 Author Organization [place] [address] Care Team Providers Name Role Phone Esau Serrano Primary Care Provider Reason for Referral Consultation (Routine) - Authorized Specialty Diagnoses / Procedures Referred By Contact Refer red To Contact Nephrology Diagnoses Proteinuria, unspecified type Hypoalbuminemia Esau Serrano PA [facility] [address] [place], [place] [address] [place] [phone] Fax: Referral ID Status Reason Start Expiration Visits Visits Date Date Requested Authorized [id number] Authorized Consult, 05/27/2021 05/27/2022 12 12 Test & Treat PCP Updated and/or Approved Encounter Details Date Type Department Care Team Description 06/01/2021 Transcribe Orders Nephrology Medina Serrano a, unspecified type; Hypertension at [facility] ELVIS Richard Hypoalbuminemia [facility] [address] [place] [phone] Social History Tobacco Use Types Packs/Day Years Used Date Never Smoker Smokeless Tobacco: Never Used Sex Assigned at Date Recorded Male 07/03/2021 3:24 PM EST documented as of this encounter Plan of Treatment Scheduled Referrals Name Type Priority Associated Diagnoses Order S chedule Referral to Outpatient Referral Routine Proteinuria, Ordered: Nephrology unspecified type 06/01/2021 Hypoalbuminemia documented as of this encounter Visit Diagnoses Diagnosis Proteinuria, unspecified type Hypoalbuminemia Other disorders of plasma protein metabo lism documented in this encounter Care Teams Expansion Joint Builder Relationship Specialty Start Date End Date Esau Serrano PA PCP - General Family Medicine 06/01/21 [address] [place] [address] documented as of this encounter
--- OUTSIDE RECORDS SUMMARY | 2022-01-24 10:46 | XMS_ITS | Encounter Summary ---
:1960 Author Organization [facility] Address [facility] [address] [place] [address] Care Team Providers Name Role Phone Esau Serrano Primary Care Provider Encounter Details Date Type Department Care Team Description 07/29/2021 Notes Only Nephrology Hypertension at Robbie Cullen MD [facility] Georgina degroot [place] [address] [place] [address] [phone] (Wo rk) Social History Tobacco Use Types Packs/Day Years Used Date Never Smoker Smokeless Tobacco: Never Used Sex Assigned at Date Recorded Male 07/03/2021 3:24 PM EST documented as of this encounter Progress Notes Robbie Cullen MD - 07/29/2021 8:12 AM EDT I have tried to reach patient a couple of times to discuss his lab results. He has not responded. As per the chart, since the last visit, he has followed up with [facility] nephrology and has seen a kiss mixer that on 07/27/2021 and is continuing further testing as well as possible biopsy there for his nephrotic syndrome. Will not pursue further contact with the patient or further investigation or treatment here at [facility] unless patient reaches out to us. documented in this encounter Plan of Treatment Not on filedocumented as of this encounter Visit Diagnoses Not on filedocumented in this encounter Care Teams It Program Auditor Relationship Specialty Start Date End Date Esau Serrano PA PCP - General Family Medicine 06/01/21 [address] [place] [address] documented as of this encounter
--- OUTSIDE RECORDS SUMMARY | 2022-01-24 10:46 | XMS_ITS | Encounter Summary ---
:1960 Author Organization [facility] Address [facility] [place] [address] Care Team Providers Name Role Phone Esau Serrano Primary Care Provider Encounter Details Date Type Department Care Team Description 07/23/2021 Telephone Nephrology Hypertension at Robbie Cullen MD [facility] Georgina degroot [place] [address] [place] [address] [phone] (Wo rk) Social History Tobacco Use Types Packs/Day Years Used Date Never Smoker Smokeless Tobacco: Never Used Sex Assigned at Date Recorded Male 07/03/2021 3:24 PM EST documented as of this encounter Miscellaneous Notes Telephone Encounter - Robbie Cullen MD - 07/23/2021 12:55 PM EDT Called patient to discuss about lab report and possible kidney biopsy. Left voice message to call back documented in this encounter Plan of Treatment Not on filedocumented as of this encounter Visit Diagnoses Not on filedocumented in this encounter Care Teams Carbon Accountant Relationship Specialty Start Date End Date Esau Serrano PA PCP - General Family Medicine 06/01/21 [address] [place] [address] documented as of this encounter
--- OUTSIDE RECORDS SUMMARY | 2022-01-24 10:47 | XMS_ITS | Encounter Summary ---
:1960 Author Organization [facility] Address [address] [place] [address] Care Team Providers Name Role Phone Esau Serrano PA-C Primary Care Provider [phone] Saray Nicholson ND Unavailable [phone] Encounter Details Date Type Department Care Team Description 01/07/2022 Lab Requisition [facility] Outr Resulting Lab, Pathology & Laboratory Provider [facility] [address] [id number] Social History Tobacco Use Types Packs/Day Years Used Date Never Smoker Smokeless Tobacco: Never Used Alcohol Use Standard Drinks/Week Comments Not Currently 0 (1 standard drink = 0.6 oz pure alcoho l) nothing for last 6 months Alcohol Habits Answer Date Recorded How often do you have a drink containing Not asked alcohol? How many drinks containing alcohol do you Not asked have on a typical day when you are drinking? How often do you have six or more drinks on Not asked one occasion? Comment: nothing for last 6 months 08/18/2021 Sex Assigned at Date Recorded Male 10/05/2021 16:55 EDT documented as of this encounter Functional Status Functional Status Response Date of Assessment Because of a physical, mental, or emotional condition, Yes 12/10/2021 does this person have difficulty doing errands alone such as visiting a doctor's office or shopping? Cognitive Status Response Date of Assessment Because of a physical, mental, or emotional condition, No 09/10/2021 does this person have serious difficulty concentrating, remembering, or making decisions? documented as of this encounter Plan of Treatment Upcoming Encounters Date Type Specialty Care Team Description 01/28/2022 Phlebotomy Only Hematology and Oncology Blood Doctor, [facility] Hem Onc 01/28/2022 Appointment Infusion Therapy 02/04/2022 Phlebotomy Only Hematology and Oncology Blood Doctor, [facility] Hem Onc 02/04/2022 Office Visit Hematology and Oncology Henrik Marquez MD [address] [phone] (Wo rk) 02/04/2022 Appointment Infusion Therapy 02/11/2022 Phlebotomy Only Hematology and Oncology Blood Doctor, [facility] Hem Onc 02/11/2022 Appointment Infusion Therapy 02/18/2022 Phlebotomy Only Hematology and Oncology Blood Doctor, [facility] Hem Onc 02/18/2022 Appointment Infusion Therapy 03/09/2022 Office Visit Hematology and Oncology Dayanna oRman NP [address] [phone] (Wo rk) documented as of this encounter Procedures Procedure Name Priority Date/Time Associated Diagnosis Comme nts FIBRINOGEN Routine 01/07/2022 11:25 EDT Results for this procedure are i n the results section . documented in this encounter Results (ABNORMAL) FIBRINOGEN (01/07/2022 11:25 EDT) Pathologist Sig nature Fibrinogen >1000 (H) 171 - 384 mg/dL [facility] Specimen Blood - Venous blood (substance) Performing Organization Address City/State/ZIP Code Phon e Number [facility] [address] [place] [address] SERVICES documented in this encounter Visit Diagnoses Not on filedocumented in this encounter Care Teams Associate Professor Of Anthropology Relationship Specialty Start Date End Date Esau Serrano PA-C PCP - General 09/03/21 [address] [place] [address] Saray Nicholson, JOVAN Naturopathic Medicine 09/03/[address] [place] [id number] documented as of this encounter
--- OUTSIDE RECORDS SUMMARY | 2022-01-24 10:47 | XMS_ITS | Encounter Summary ---
:1960 Author Organization [facility] Address [address] [place] [address] Care Team Providers Name Role Phone Esau Serrano PA-C Primary Care Provider [phone] Saray Nicholson ND Unavailable Encounter Details Date Type Department Care Team Description 01/09/2022 Lab Requisition [facility] Outr Resulting Lab, Pathology & Laboratory Provider [facility] [address] [id number] Social History Tobacco Use Types Packs/Day Years [...] Phlebotomy Only Hematology and Oncology Blood Doctor, [facility] Hem Onc 01/28/2022 Appointment Infusion Therapy 02/04/2022 Phlebotomy Only Hematology and Oncology Blood Doctor, [facility] Hem Onc 02/04/2022 Office Visit Hematology and Oncology Henrik Marquez MD [address] [phone] (Wo rk) 02/04/2022 Appointment Infusion Therapy 02/11/2022 Phlebotomy Only Hematology and Oncology Blood Doctor, [facility] Hem Onc 02/11/2022 Appointment Infusion Therapy 02/18/2022 Phlebotomy Only Hematology and Oncology Blood Doctor, [facility] Hem Onc 02/18/2022 Appointment Infusion Therapy 03/09/2022 Office Visit Hematology and Oncology Dayanna Roman NP [address] [phone] (Wo rk) documented as of this encounter Procedures Procedure Name Priority Date/Time Associated Comments Diagnosis LEGIONELLA ANTIGEN Routine 01/08/2022 19:30 Resul ts for this DETECTION, URINE EDT procedure a re in the results section. documented in this encounter Results LEGIONELLA ANTIGEN DETECTION, URINE (01/08/2022 19:30 EDT) Pathologist Sig nature Legionella Antigen Negative Negative [facility] Detection LABORATORY SERVICES Specimen Urine Performing Organization Address City/State/ZIP Code Phon e Number [facility] [address] [place] [address] SERVICES documented in this encounter Visit Diagnoses Not on filedocumented in this encounter Care Teams Senior Resident Care Director Relationship Specialty Start Date End Date Esau Serrano PA-C PCP - General 09/03/21 [address] [place] [address] Saray Nicholson ND Naturopathic Medicine 09/03/[address] [place] [address] documented as of this encounter
--- OUTSIDE RECORDS SUMMARY | 2022-01-24 10:47 | XMS_ITS | Encounter Summary ---
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) ([facility]) Henrik Marquez Ep2 Pat Dotson MD [id number] [place] [address], [facility] Phone: Shabana Lema [address] [place] [phone] Referral ID Status Reason Start Expiration Visits Visits Date Date Requested Authorized [id number] Authorization Not 10/18/2021 04/23/2022 50 5 0 Required Encounter Details Date Type Department Care Team Description 01/21/2022 Hospital Encounter [facility] [place] a myloidosis Hematology & Oncology (HCC-C MS) ([facility]) - [facility] (Primary Dx) [address] [place] [address] Social History Tobacco Use Types Packs/Day Years [...] 16:55 EDT documented as of this encounter Last Filed Vital Signs Vital Sign Reading Time Taken Comments Blood Pressure 162/106 01/21/2022 1244 EDT Pulse 109 01/21/2022 1244 EDT Temperature 36.4 ??C (97.5 ??F) 01/21/2022 1244 EDT Respiratory Rate 15 01/21/2022 1244 EDT Oxygen Saturation 98% 01/21/2022 1244 EDT Inhaled Oxygen Concentration - - Weight 104.7 kg (230 lb 14.4 oz) 01/21/2022 1244 EDT Height - - Body Mass Index 31.76 11/04/2021 0908 EDT documented in this encounter Functional Status Functional Status Response [...] making decisions? documented as of this encounter Discharge Instructions Patient InstructionsGabby Carpenter RN - 01/21/2022 14:00 EDT Fatigue patient education: Chemotherapy can make you feel very tired. Other things like anemia (low red blood cell count), being in pain being sad or depressed, or having trouble sleeping can also make you feel tired. Making a plan to feel less tired can be very helpful. Do less and let others help you, do activitiesthat are most important you first. Take time off from your job or work fewer hours. Eat and drink well, make healthy foods when you feel well and freeze them for later. Eat small meals to keep your strength up and keep water with you and take small sips during the day. Be as active as you can, even 15 to 30 minutes of exercise a day can help give you energy. Try walking, yoga and stretching. Biking is great exercise if your platelet count is good. Lastly, take time to rest. Listen to your body it will let you know when it is time to take it easy.Take short naps to help revive you. Follow a bedtime routine, listening to music or taking a bath may help you to relax and may help you get 8 hours of sleep a night. Infection patient education You are at increased risk for infection. Here are some steps you can take to decrease your risk. Wash your hands well ??? Always wash your hands: Before your cook or eat After you use the bathroom After being in a public place. ??? Wash your hands well with soap and water. Have the people around you wash their hands well too. ??? Use hand tube building machine operator when you can't find soap and water. Stay extra clean. ??? [place] your teeth after meals and before you go to bed. Use a very soft toothbrush. ??? If you have a catheter, keep the area around it clean and dry. Ask your nurse how to take care of this area. Try to stay away from germs ??? Stay away from people who are sick or have a cold. Try to stay away from big crowds. ??? Wash raw fruits and vegetables ??? Wash your hands carefully after you handle raw meat. Cook meat well before eating it. ??? Stay away from people who have just has a chicken pox, polio or measles vaccine ??? Have someone else clean up after your pet. Try not to get cuts ??? Use an electric shaver, not a razor. ??? Clean yourself well and gently after going to the bathroom. Let your nurse know if your rectal area is sore or bleeds. ??? Don???t squeeze pimples. You should call right away Day or Night at [phone] if you have a fever that is 100.5 degrees F (38 degrees Celsius) or higher, chills, shaking or general muscle aches. You should also call if you have a stiff neck, bloody or cloudy urine or burning / stinging when you urinate.Also call if you have a cough or sore throat, a skin rash, sore or white coating on your mouth or tongue, and swelling or tenderness around your catheter. Ask your doctor or nurse if you have any questions or concerns. documented in this encounter Medications at Time of Discharge Medication Sig Dispensed Refills Start Date End Date acyclovir (ZOVIRAX) 400 Take 1 Tablet by 60 Tablet 5 2021 mg tablet mouth 2 times daily. atorvastatin (LIPITOR) 80 Take 80 mg by mouth 0 mg tablet daily. dexAMETHasone (DECADRON) Take 10 tablets (40 100 Tablet 1 4 mg tablet mg) orally once a week on chemotherapy days. Take with food. ergocalciferol (VITAMIN Take 50,000 Units by 0 D2) 1,250 mcg (50,000 mouth every 7 days. unit) capsule LORazepam (ATIVAN) 0.5 mg TAKE 2 TABLETS BY 30 Tablet 0 tablet MOUTH ONCE DAILY AT BEDTIME NEEDED FOR ANXIETY (MAX 2 TABLETS A DAY) montelukast (SINGULAIR) TAKE 1 TABLET BY 30 Tablet 0 2021 10 mg tablet MOUTH ON THE DAY BEFORE, DAY OF AND DAY AFTER CHEMOTHERAPY prochlorperazine Take 1 Tablet by 30 Tablet 1 11/04/2021 (COMPAZINE) 10 mg tablet mouth every 6 hours as needed for Nausea. torsemide (DEMADEX) 10 mg Take one tablet 60 Tablet 1 12/13 tablet daily, then an additional 10 mg PRN for a 3-5 lb weight gain. documented as of this encounter Discharge Disposition Disposition Code Departure Means Destination Home or Self Care documented in this encounter Progress Notes Gabby Carpenter RN - 01/21/2022 1400 EDT Out-patient Chemotherapy Note Patient presents to clinic today for cycle # 2 , day # 15 of Gretel-CYBORD treatment plan. Delayed since 12/31/21 due to hospitalization. See notes. Reviewed lab results with patient CBC: Lab Results Component Value Date WBC 17.19 (H) 01/21/2022 HGB 13.7 (L) 01/21/2022 HCT 42.2 01/21/2022 PLT 500 (H) 01/21/2022 NEUTROABS 16.37 (H) 01/21/2022 Chemistry: Lab Results Component Value Date NA 140 01/21/2022 K 4.2 01/21/2022 BUN 24 01/21/2022 CREATININE 1.16 01/21/2022 CALCIUM 8.3 (L) 01/21/2022 MG 2.0 01/21/2022 LFT: Lab Results Component Value Date TBIL <0.5 01/21/2022 ALKPHOS 126 01/21/2022 AST 34 01/21/2022 ALT 19 01/21/2022 . Parameters for today???s treatment met Patient received pre-meds (Tylenol, Benadryl 25mg po, Compazine), took own Dexamethasone 20mg at home and Singulair. Received Bortezomib subcutaneously to RUQ and Darzalex FASPRO(see MAR) subcutaneously to RLQ abdomen over 5 minutes by Chelsey Hernández RN. Dressing applied. Received 700mg Cytoxan po c food. Patient appeared to tolerate tx well. Patient education: Patient educated on medications administered today. Patient expressed understanding of education provided and no barriers identified Patient and daughter encouraged to call clinic with any issues. I was supervised by Dr. Moon who was present and immediately available in the office suite. Gabby Carpenter, RN documented in this encounter Miscellaneous Notes Addendum Note - Melina Chavira - 01/21/2022 1400 EDT Encounter addended by: Melina Chavira on: 01/24/2022 8:28 Actions taken: Charge Capture section accepted documented in this encounter Plan of Treatment Upcoming Encounters Date Type Specialty Care Team Description 01/28/2022 Phlebotomy Only Hematology and Oncology Blood Doctor, [facility] Hem Onc 01/28/2022 Appointment Infusion Therapy 02/04/2022 Phlebotomy Only Hematology and Oncology Blood Doctor, [facility] Hem Onc 02/04/2022 Office Visit Hematology and Oncology Henrik Marquez MD [address] [place] [address], [facility] [address] [place] [phone] (Wo rk) 02/04/2022 Appointment Infusion Therapy 02/11/2022 Phlebotomy Only Hematology and Oncology Blood Doctor, [facility] Hem Onc 02/11/2022 Appointment Infusion Therapy 02/18/2022 Phlebotomy Only Hematology and Oncology Blood Doctor, [facility] Hem Onc 02/18/2022 Appointment Infusion Therapy 03/09/2022 Office Visit Hematology and Oncology Dayanna Roman, ANGIOGRAPHY TECHNOLOGIST [address] [facility], [facility] [address] [place] [phone] (Wo rk) documented as of this encounter Visit 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 2.34 m2 Treatment Plan Recorded BSA), subcutaneous, NOW X1, 1 dose, On Mon01/21/22 at 1515 cyclophosphamide (CYTOXAN) capsule 700 m g Given 01/21/2022 15:07 EDT 700 mg 700 mg (rounded from 702 mg = 300 mg/m2 ? 2.34 m2 Treatment Plan Recorded BSA), oral, NOW X1, 1 dose, On Mon01/21/22 at 1515, STAT zasrgnngcys-dsqzltbnuphsg-FNPX Given 01/21/2022 15:06 1,800 mg Right Lower (DARZALEX FASPRO) subcutaneous EDT Abdomen injection 1,800 mg 1,800 mg, subcutaneous, NOW X1, 1 dose, On Mon01/21/22 at 1515, Routine diphenhydrAMINE (BENADRYL) capsule 25 mg Given 01/21/2022 14:29 EDT 25 mg 25 mg, oral, NOW X1, 1 dose, On Mon01/21/22 at 1445, Routine prochlorperazine (COMPAZINE) tablet 10 m g Given 01/21/2022 14:29 EDT 10 mg 10 mg, oral, NOW X1, 1 dose, On Mon01/21/22 at 1445, Routine documented in this encounter Orders Medications Ordered That Might Not Have Count Last Ord ered Date First Ordered Date Been Administered dexAMETHasone (DECADRON) tablet 20 mg 1 01/21/2022 diphenhydrAMINE (BENADRYL) injection 50 mg 1 01/21 EPINEPHrine (ADRENALIN) injection 0.3 mg 1 022 methylPREDNISolone sod suc(PF) 1 01/21/2022 (SOLU-MEDROL) injection 100 mg Appointment Requests Count Last Ordered Date First Ord ered Date ONCBCN INFUSION APPOINTMENT REQUEST - 01/21/2022 CALCULATED documented in this encounter Care Teams Self Pay Specialist Relationship Specialty Start Date End Date Esau Serrano PA-C PCP - General 09/03/21 [address] [place] [address] Saray Nicholson ND Naturopathic Medicine 09/03/[address] [place] [phone] documented as of this encounter
--- OUTSIDE RECORDS SUMMARY | 2022-01-24 10:47 | XMS_ITS | Encounter Summary ---
:1960 Author Organization [facility] Address [address] [place] [address] Care Team Providers Name Role Phone Esau Serrano PA-C Primary Care Provider [phone] Saray Nicholson ND Unavailable [phone] Reason for Visit Reason Onset Date Comments Pneumonia 01/09/2022 Encounter Details Date Type Department Care Team Description 01/09/2022 Telephone [facility] Paresh Burris MD Pneumonia Hematology & Oncology - [address] [place] [address] [place] [address] [phone] Social History Tobacco Use Types Packs/Day Years [...] making decisions? documented as of this encounter Miscellaneous Notes Telephone Encounter - Paresh Burris MD - 01/09/2022 1654 EDT Kimani is hospitalized in [place] with pneumonia, presumably COVID pneumonia. His called concerned that they are treating him with remdesivir. I said the renal implications with remdesivir are usually mild, but she wanted to ensure Dr. Delaney and Dr. Downing are aware of what is going on Kimani has been improving but has been hospitalized since 01/06 PARESH BURRIS MD 01/09/2022 16:58 documented in this encounter Plan of Treatment Upcoming Encounters Date Type Specialty Care Team Description 01/28/2022 Phlebotomy Only Hematology and Oncology Blood Doctor, [facility] Hem Onc 01/28/2022 Appointment Infusion Therapy 02/04/2022 Phlebotomy Only Hematology and Oncology Blood Doctor, [facility] Hem Onc 02/04/2022 Office Visit Hematology and Oncology Henrik Marquez MD [address] [phone] (Wo rk) 02/04/2022 Appointment Infusion Therapy 02/11/2022 Phlebotomy Only Hematology and Oncology Blood Doctor, [facility] Hem Onc 02/11/2022 Appointment Infusion Therapy 02/18/2022 Phlebotomy Only Hematology and Oncology Blood Doctor, [facility] Hem Onc 02/18/2022 Appointment Infusion Therapy 03/09/2022 Office Visit Hematology and Oncology Dayanna Roman, KODI [address] [phone] (Wo rk) documented as of this encounter Visit Diagnoses Not on filedocumented in this encounter Care Teams Water Mechanic Relationship Specialty Start Date End Date Esau Serrano PA-C PCP - General 09/03/[address] [place] [phone] Saray Nicholson, JOVAN Naturopathic Medicine 09/03/[address] [place] [phone] documented as of this encounter
--- OUTSIDE RECORDS SUMMARY | 2022-01-24 10:47 | XMS_ITS | Encounter Summary ---
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, [facility] Phone: [place] [place] [phone] Referral ID Status Reason Start Expiration Visits Visits Date Date Requested Authorized [id number] Authorization Not 10/18/2021 04/23/2022 50 5 0 Required Encounter Details Date Type Department Care Team Description 12/31/2021 Hospital Encounter [facility] AL a myloidosis Hematology & Oncology (HCC-C MS) ([facility]) - [facility] (Primary Dx) [address] [place] [id number] Social History Tobacco Use Types Packs/Day Years [...] Sign Reading Time Taken Comments Blood Pressure 151/91 12/31/2021 1412 EDT Pulse 110 12/31/2021 1412 EDT Temperature 36.3 ??C (97.3 ??F) 12/31/2021 1412 EDT Respiratory Rate 18 12/31/2021 1412 EDT Oxygen Saturation 94% 12/31/2021 141 EDT Inhaled Oxygen Concentration - - Weight 109 kg (240 lb 6.4 oz) 12/31/2021 141 EDT Height - - Body Mass Index 33.06 11/04/2021 0908 EDT documented in this encounter [...] making decisions? documented as of this encounter Medications at Time of Discharge Medication Sig Dispensed Refills Start Date End Date acyclovir (ZOVIRAX) 400 Take 1 Tablet by 60 Tablet 5 2021 mg tablet mouth 2 times daily. atorvastatin (LIPITOR) Take 80 mg by mouth 0 80 mg tablet daily. dexAMETHasone (DECADRON) Take 10 tablets (40 100 Tablet 1 4 mg tablet mg) orally once a week on chemotherapy days. Take with food. ergocalciferol (VITAMIN Take 50,000 Units by 0 D2) 1,250 mcg (50,000 mouth every 7 days. unit) capsule montelukast (SINGULAIR) TAKE 1 TABLET BY 30 Tablet 0 2021 10 mg tablet MOUTH ON THE DAY BEFORE, DAY OF AND DAY AFTER CHEMOTHERAPY prochlorperazine Take 1 Tablet by 30 Tablet 1 11/04/2021 (COMPAZINE) 10 mg tablet mouth every 6 hours as needed for Nausea. torsemide (DEMADEX) 10 Take one tablet 60 Tablet 1 12/14/19 22 mg tablet daily, then an additional 10 mg PRN for a 3-5 lb weight gain. LORazepam (ATIVAN) 0.5 Take 2 Tablets by 30 Tablet 1 202101/11/2022 mg tablet mouth at bedtime as needed for Anxiety. Daily Max: 1 mg documented as of this encounter Discharge Disposition Disposition Code Departure Means Destination Home or Self Care documented in this encounter Progress Notes Lupe Rivero, JACKIE - 12/31/2021 1400 EDT Out-patient Chemotherapy Note Patient presents to clinic today for cycle # 2 , day # 8 of Gretel-CyBord treatment plan. Kimani tested positive for Covid on 12/23/21; his chemotherapy was delayed X1 week and he received Bebtelovimab on 12/24/21. He states he is feeling good now, but has a cough which he has had for the last year. He is being treated today in a room which is separate from the infusion bay. Reviewed lab results with patient CBC: Lab Results Component Value Date WBC 11.43 (H) 12/31/2021 HGB 14.9 12/31/2021 HCT 43.8 12/31/2021 PLT 375 12/31/2021 NEUTROABS 10.53 (H) 12/31/2021 Chemistry: Lab Results Component Value Date NA 137 12/31/2021 K 4.3 12/31/2021 BUN 21 12/31/2021 CREATININE 1.25 12/31/2021 CALCIUM 7.7 (L) 12/31/2021 MG 1.9 12/31/2021 LFT: Lab Results Component Value Date TBIL <0.5 12/31/2021 ALKPHOS 119 12/31/2021 AST 42 12/31/2021 ALT 22 12/31/2021 . Parameters for today???s treatment met Treat Despite was ordered to treat with labs still pending Patient received pre-meds, Benadryl 25mg PO, Tylenol 650mg PO and Compazine 10mg PO (see MAR). Took Dexamethasone 20mg PO at home this AM Patient tolerating chemotherapy treatment at this time with no signs of reaction or side effects. ~Velcade administered subcutaneous to LUQ ~Daratumumab adminsitered subcutaneous to LLQ ~Cyclophosphamide 725mg administered PO Patient education: Patient verbally educated on all medications administered today. Patient expressed understanding of education provided and no barriers identified [id number] encouraged to call clinic with any issues. I was supervised by Dr. Tellez who was present and immediately available in the office suite. documented in this encounter Miscellaneous Notes Addendum Note - Melina Chavira - 12/31/2021 1400 EDT Encounter addended by: Melina Chavira on: 01/24/2022 8:27 Actions taken: Charge Capture section accepted documented in this encounter Plan of Treatment Upcoming Encounters Date Type Specialty Care Team Description 01/28/2022 Phlebotomy Only Hematology and Oncology Blood Doctor, [facility] Hem Onc 01/28/2022 Appointment Infusion Therapy 02/04/2022 Phlebotomy Only Hematology and Oncology Blood Doctor, [facility] Hem Onc 02/04/2022 Office Visit Hematology and Oncology Henrik Marquez MD [address] [phone] (Wo rk) 02/04/2022 Appointment Infusion Therapy 02/11/2022 Phlebotomy Only Hematology and Oncology Blood Doctor, [facility] Hem Onc 02/11/2022 Appointment Infusion Therapy 02/18/2022 Phlebotomy Only Hematology and Oncology Blood Doctor, [facility] Hem Onc 02/18/2022 Appointment Infusion Therapy 03/09/2022 Office Visit Hematology and Oncology Dayanna Roman NP [address] [phone] (Wo rk) documented as of this encounter Procedures Procedure Name Priority Date/Time Associated Comments Diagnosis MONOCLONAL PROTEIN Routine 12/31/2021 13:57 AL amyloidosis Res ults for this MONITORING PANEL, SERUM EDT (HCC-CMS) (HCC) p rocedure are in the results section. COMPREHENSIVE METABOLIC STAT 12/31/2021 13:57 AL amyloidosi s Results for this PANEL (ONCOLOGY USE EDT ([facility]) ([facility]) proce dure are in ONLY-INC MG) the results section. SERUM FREE LIGHT CHAINS Routine 12/31/2021 13:57 AL amyloidosi s Results for this EDT ([facility]) ([facility]) procedure ar e in the results section. COMPLETE BLOOD COUNT STAT 12/31/2021 13:57 AL amyloidosis R esults for this AND DIFF, CHEMO EDT ([facility]) ([facility]) procedure are in the results section. IMMUNOTYPING, SERUM Today 12/31/2021 13:57 AL amyloidosis Re sults for this EDT ([facility]) ([facility]) procedure ar e in the results section. IMMUNOGLOBULINS Routine 12/31/2021 13:57 AL amyloidosis Result s for this EDT ([facility]) ([facility]) procedure ar e in the results section. SPEP, INCLUDES Routine 12/31/2021 13:57 AL amyloidosis Results for this QUANTITATION OF EDT ([facility]) ([facility]) procedure are in MONOCLONAL SPIKE the results section. 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 Reviewed by: Ruben Wang MD 01/03/2022 1458 Specimen Blood - Venous blood (substance) Performing Organization Address City/[facility]/ZIP Code Phon e Number [facility] [address] [place] [address] SERVICES (ABNORMAL) IMMUNOGLOBULINS (12/31/2021 13:57 EDT) Pathologist Sig nature IgG 179 (L) 610-1,616 mg/dL [facility] LABORA TORY SERVICES IgA 89 85 - 499 mg/dL [facility] ORY SERVICES IgM 54 35 - 242 mg/dL [facility] [place] SERVICES Specimen Blood - Venous blood (substance) Performing Organization Address City/[facility]/ZIP Code Phon e Number [facility] [address] [place] [address] SERVICES SERUM FREE LIGHT CHAINS (12/31/2021 13:57 EDT) Pathologist Sig nature Searchlight Free Lt Chain 1.07 0.33 - 1.94 [facility] mg/dL LABORATORY SERVICES Lambda Free Lt Chain 1.61 0.57 - 2.63 [facility] mg/dL LABORATORY SERVICES Searchlight/Lambda Ratio 0.66 0.26 - 1.65 [facility] SERVICES Specimen Blood - Venous blood (substance) Performing Organization Address City/State/ZIP Code Phon e Number [facility] [address] [place] [address] SERVICES (ABNORMAL) SPEP, INCLUDES QUANTITATION OF MONOCLONAL SPIKE (12/31/2021 13:57 EDT) Albumin % 45.6 (L) 55.8 - 66.1 % [facility] SERVICES Albumin g/dL 2.2 (L) 3.6 - 5.2 [facility] g/dL LABORATORY SERVICES Alpha-1 % 7.2 (H) 2.9 - 4.9 % [facility] SERVICES Alpha-1 g/dL 0.40 0.15 - 0.40 [facility] g/dL LABORATORY SERVICES Alpha-2 % 30.9 (H) 7.1 - 11.8 % [facility] LABORAT[facility] SERVICES Alpha-2 g/dL 1.50 (H) 0.50 - 1.00 [facility] g/dL LABORATORY SERVICES Beta % 11.9 8.4 - 13.1 % [facility] LABOR[facility] SERVICES Beta g/dL 0.60 0.60 - 1.20 [facility] g/dL LABORATORY SERVICES Gamma % 4.4 (L) 11.1 - 18.8 % [facility] SERVICES Gamma g/dL 0.20 (L) 0.60 - 1.60 [facility] g/dL LABORATORY SERVICES SPEP Comment Immunotyping added by [facility] reflex to evaluate the LABORATORY historical presence of SERVICES monoclonal protein.Abnormal band, previously identified as:Monoclonal IgG Searchlight immunoglobulin consistent with daratumumab therapy identified on 12/10/21.Comment: See scanned/supplementary report. Total Protein 4.9 (L) 6.3 - 8.2 [facility] g/dL LABORATORY SERVICES Specimen Blood - Venous blood (substance) Narrative This result has an attachment that is no t available. Performing Organization Address City/[facility]/ZIP Code Phon e Number [facility] [address] [place] [address] SERVICES PROTEIN, TOTAL (12/31/2021 13:57 EDT) Specimen Blood - Venous blood (substance) Performing Organization Address [facility]/ZIP Code Phon e Number [facility] [address] [place] [address] SERVICES (ABNORMAL) COMPREHENSIVE METABOLIC PANEL (ONCOLOGY USE ONLY-INC MG) (12/31/2021 13:57 EDT) Pathologist Sig nature Sodium 137 136 - 145 [facility] mmol/L LABORATORY SERVICES Potassium 4.3 3.5 - 5.0 [facility] mmol/L LABORATORY SERVICES Chloride 106 96 - 110 mmol/L [facility] SERVICES CO2 Total 22 22 - 32 mmol/L [facility] SERVICES Glucose 145 (H) 70 - 100 mg/dL [facility] SERVICES BUN 21 10 - 26 mg/dL [facility] SERVICES Creatinine 1.25 0.66 - 1.25 [facility] mg/dL LABORATORY SERVICES eGFR 66 >60 [facility] mL/min/1.73m2 LABORATORY SERVICES Total Protein 4.9 (L) 6.3 - 8.2 g/dL [facility] LABORATORY SERVICES Albumin 2.4 (L) 3.4 - 4.9 g/dL [facility]OR[facility] SERVICES Alkaline Phosphatase 119 38 - 126 U/L [facility] LABORAT[facility] SERVICES AST 42 15 - 46 U/L [facility] SERVICES ALT 22 <50 U/L [facility] SERVICES Bilirubin, Total <0.5 <1.4 mg/dL [facility] SERVICES Calcium 7.7 (L) 8.5 - 10.5 [facility] mg/dL LABORATORY SERVICES Magnesium 1.9 1.7 - 2.8 mg/dL [facility] LABORATORY SERVICES Albumin/Globulin 1.0 1.0 - 2.5 [facility] Ratio LABORATORY SERVICES Anion Gap 9 5 - 14 [facility] SERVICES Specimen Blood - Venous blood (substance) Performing Organization Address [facility]/ZIP Code Phon e Number [facility] [address] [place] [address] SERVICES (ABNORMAL) COMPLETE BLOOD COUNT AND DIFF, CHEMO (12/31/2021 13:57 EDT) WBC 11.43 (H) 4.00 - 10.40 [facility] LABORATORY SERVICES RBC 4.83 4.36 - 5.78 [facility] LABORATORY SERVICES Hemoglobin 14.9 13.8 - 17.3 [facility] gm/dL LABORATORY SERVICES HCT 43.8 39.5 - 50.2 % [facility] LABORATORY SERVICES MCV 91 81 - 95 fl [facility] LABORATORY SERVICES MCH 30.8 27.6 - 33.0 pg [facility] LABORATORY SERVICES MCHC 34.0 32.8 - 36.4 [facility] gm/dL LABORATORY SERVICES RDW-CV 16.1 (H) <14.2 % [facility] LABORATORY SERVICES RDW-SD 52.6 (H) <46.0 fl [facility] LABORATORY SERVICES PLT 375 141 - 377 K/[facility] LABORATORY SERVICES MPV 10.5 9.5 - 12.7 fl [facility] LABORATORY SERVICES Neutrophils 92.2 % [facility] LABORATORY SERVICES Absolute Neutrophils 10.53 (H) 2.20 - 8.85 [facility] LABORATORY SERVICES Type of Differential: Auto [facility] LABORAT[facility] SERVICES Specimen Blood - Venous blood (substance) Performing Organization Address City/State/ZIP Code Phon e Number [facility] [address] [place] [address] SERVICES documented in this encounter Visit Diagnoses Diagnosis AL amyloidosis (HCC-CMS) (HCC) - Primary Other amyloidosis documented in this encounter Administered Medications Inactive Administered Medications - up to 3 most recent administrations Medication Order MAR Action Action Date Dose Rate Site acetaminophen (TYLENOL) tablet 650 Given 12/31/2021 15:03 EDT 65 0 mg mg 650 mg, oral, NOW X1, 1 dose, On Mon12/31/21 at 1500, Routine bortezomib (VELCADE) chemo Given 12/31/2021 15:31 EDT 3.13 mg Left Upper Abdomen syringe 3.13 mg 3.13 mg (rounded from 3.133 mg = 1.3 mg/m2 ? 2.41 m2 Treatment Plan Recorded BSA), subcutaneous, NOW X1, 1 dose, On Mon12/31/21 at 1530 cyclophosphamide (CYTOXAN) capsule 725 m g Given 12/31/2021 15:39 EDT 725 mg 725 mg (rounded from 723 mg = 300 mg/m2 ? 2.41 m2 Treatment Plan Recorded BSA), oral, NOW X1, 1 dose, On Mon12/31/21 at 1530, Routine pehjgffxgwa-wimqdujhpsthx-OAUC Given 12/31/2021 15:31 1,800 mg Left Lower (DARZALEX FASPRO) subcutaneous EDT Abdomen injection 1,800 mg 1,800 mg, subcutaneous, NOW X1, 1 dose, On Mon12/31/21 at 1600, Routine diphenhydrAMINE (BENADRYL) capsule 25 mg Given 12/31/2021 15:03 EDT 25 mg 25 mg, oral, NOW X1, 1 dose, On Mon12/31/21 at 1500, Routine prochlorperazine (COMPAZINE) tablet 10 m g Given 12/31/2021 15:03 EDT 10 mg 10 mg, oral, NOW X1, 1 dose, On Mon12/31/21 at 1500, Routine documented in this encounter Orders Medications Ordered That Might Not Have Count Last Ord ered Date First Ordered Date Been Administered diphenhydrAMINE (BENADRYL) injection 50 mg 1 12/31 EPINEPHrine (ADRENALIN) injection 0.3 mg 1 022 methylPREDNISolone sod suc(PF) 1 12/31/2021 (SOLU-MEDROL) injection 100 mg Nursing Count Last Ordered Date First Ordered Date TREAT DESPITE 12/31/2021 Appointment Requests Count Last Ordered Date First Ord ered Date ONCBCN INFUSION APPOINTMENT REQUEST - 12/31/2021 CALCULATED documented in this encounter Care Teams Archaeology Professor Relationship Specialty Start Date End Date Esau Serrano PA-C PCP - General 09/03/21 [address] [place] [address] Saray Nicholson ND Naturopathic Medicine 09/03/[address] [place] [address] documented as of this encounter
--- OUTSIDE RECORDS SUMMARY | 2022-01-24 10:47 | XMS_ITS | Encounter Summary ---
:1960 Author Organization [facility] Address [address] [place] [address] Care Team Providers Name Role Phone Esau Serrano PA-C Primary Care Provider [phone] Saray Nicholson ND Unavailable [phone] Reason for Visit Reason Onset Date Comments Follow-up 01/11/2022 Encounter Details Date Type Department Care Team Description 01/11/2022 Telephone [facility] Cancer Center Hematology Wesley Orozco, [facility] Follow-up & Oncology - Main Ca mpus [address] [place] [address] Social History Tobacco Use Types Packs/Day Years [...] this encounter Miscellaneous Notes Telephone Encounter - Jerod OrozcoLINETTE - 01/11/2022 1208 EDT LYNETTE HAND Note: Reason for Call: I've reached out to the pts team including the clinic scheduler, RN and MD to clarify his tx's for Oct. Currently pt is scheduled for just 3 treatments in Oct. Pt has been getting 5 treatments per month. I need to order the Darzalex Faspro dosages for Oct and am clarifying if the 3 tx's for Oct is all he will need. Pt Centered Identified Goal: No insurance, requesting free drug from the component assembler supervisor Plan: Waiting to hear back from the pt's medical team. Jerod Orozco [facility] ADDENDUM 2:15 Pt will have tx on 01/28, 02/04, 02/11 and 02/18. The pharmacy request form is being reviewed by the provider and will be submitted once it's signed. ADDENDUM 2:45 Request form was approved by the provider and faxed to the [employer]. I will send the pt a [employer] message with this update and f/u with the foundation later this week to ensure they've received it. documented in this encounter Plan of Treatment Upcoming Encounters Date Type Specialty Care Team Description 01/28/2022 Phlebotomy Only Hematology and Oncology Blood Doctor, [facility] Hem Onc 01/28/2022 Appointment Infusion Therapy 02/04/2022 Phlebotomy Only Hematology and Oncology Blood Doctor, [facility] Hem Onc 02/04/2022 Office Visit Hematology and Oncology Henrik Marquez MD [address] [place] [address] [address] [place] [address] (Wo rk) 02/04/2022 Appointment Infusion Therapy 02/11/2022 Phlebotomy Only Hematology and Oncology Blood Doctor, [facility] Hem Onc 02/11/2022 Appointment Infusion Therapy 02/18/2022 Phlebotomy Only Hematology and Oncology Blood Doctor, [facility] Hem Onc 02/18/2022 Appointment Infusion Therapy 03/09/2022 Office Visit Hematology and Oncology Dayanna Roman, RESEARCH FELLOW [address] [facility], [address] [place] [phone] (Wo rk) documented as of this encounter Visit Diagnoses Not on filedocumented in this encounter Care Teams Log Sawyer Relationship Specialty Start Date End Date Esau Serrano PA-C PCP - General 09/03/21 [address] [place] [address] Saray Nicholson, JOVAN Naturopathic Medicine 09/03/[address] [place] [phone] documented as of this encounter
--- OUTSIDE RECORDS SUMMARY | 2022-01-24 10:47 | XMS_ITS | Encounter Summary ---
:1960 Author Organization [facility] Address [address] [place] [address] Care Team Providers Name Role Phone Esau Serrano PA-C Primary Care Provider [phone] Saray Nicholson ND Unavailable [phone] Reason for Visit Reason Onset Date Comments Follow-up 01/10/2022 Encounter Details Date Type Department Care Team Description 01/10/2022 Telephone [facility] Cancer Center Hematology & Georgina Thompson RN Follow-up Oncology - [facility] [address] [place], [place] [id number] Social History Tobacco Use Types Packs/Day Years [...] this encounter Miscellaneous Notes Telephone Encounter - Jessica Thompson RN - 01/10/2022 1544 EDT Spoke to Kimani's , Haleigh, she states Kimani is feeling much better and being discharged from [facility]. She was concerned what this meant for treatment on 01/14 as the provider at [facility] advised treatment this week was not favorable since he is just recovering. Explained I would speak to Dr. Delaney regarding tx and will update her and Kimani via [employer]. Haleigh agreeable and has no further questions at this time. documented in this encounter Plan of Treatment Upcoming Encounters Date Type Specialty Care Team Description 01/28/2022 Phlebotomy Only Hematology and Oncology Blood Doctor, [facility] Hem Onc 01/28/2022 Appointment Infusion Therapy 02/04/2022 Phlebotomy Only Hematology and Oncology Blood Doctor, [facility] Hem Onc 02/04/2022 Office Visit Hematology and Oncology Henrik Marquez MD [address] [phone] (Wo rk) 02/04/2022 Appointment Infusion Therapy 02/11/2022 Phlebotomy Only Hematology and Oncology Blood Doctor, [facility] Hem Onc 02/11/2022 Appointment Infusion Therapy 02/18/2022 Phlebotomy Only Hematology and Oncology Blood Doctor, [facility] Hem Onc 02/18/2022 Appointment Infusion Therapy 03/09/2022 Office Visit Hematology and Oncology Dayanna Roman, KODI [address] [address] (Wo rk) documented as of this encounter Visit Diagnoses Not on filedocumented in this encounter Care Teams Car Dryer Relationship Specialty Start Date End Date Esau Serrano PA-C PCP - General 09/03/[address] [place] [phone] Saray Nicholson, JOVAN Naturopathic Medicine 09/03/[address] [place] [phone] documented as of this encounter
--- OUTSIDE RECORDS SUMMARY | 2022-01-24 10:47 | XMS_ITS | Encounter Summary ---
:1960 Author Organization [facility] Address [address] [place] [address] Care Team Providers Name Role Phone Esau Serrano PA-C Primary Care Provider [phone] Saray Nicholson ND Unavailable [phone] Reason for Visit Reason Comments Medications Refill Encounter Details Date Type Department Care Team Description 01/11/2022 [facility] Mini Raman NP Medications Refill Hematology & Oncology - 111 [facility], [address] [place], [place] [address] [place] [address] [phone] (Wo rk) Social History Tobacco Use Types [...] making decisions? documented as of this encounter Ordered Prescriptions Prescription Sig Dispensed Refills Start Date End Date LORazepam (ATIVAN) 0.5 mg TAKE 2 TABLETS BY 30 Tablet 0 tablet MOUTH ONCE DAILY AT BEDTIME NEEDED FOR ANXIETY (MAX 2 TABLETS A DAY) documented in this encounter Plan of Treatment Upcoming Encounters Date Type Specialty Care Team Description 01/28/2022 Phlebotomy Only Hematology and Oncology Blood Doctor, [facility] Hem Onc 01/28/2022 Appointment Infusion Therapy 02/04/2022 Phlebotomy Only Hematology and Oncology Blood Doctor, [facility] Hem Onc 02/04/2022 Office Visit Hematology and Oncology Henrik Marquez MD [address] [phone] (Wo rk) 02/04/2022 Appointment Infusion Therapy 02/11/2022 Phlebotomy Only Hematology and Oncology Blood Doctor, [facility] Hem Onc 02/11/2022 Appointment Infusion Therapy 02/18/2022 Phlebotomy Only Hematology and Oncology Blood Doctor, [facility] Hem Onc 02/18/2022 Appointment Infusion Therapy 03/09/2022 Office Visit Hematology and Oncology Dayanna Roman NP [address] [phone] (Wo rk) documented as of this encounter Visit Diagnoses Not on filedocumented in this encounter Discontinued Medications Medication Sig Discontinue Reason Start Date End Date LORazepam (ATIVAN) 0.5 Take 2 Tablets by 11/04/2021 01/11/2022 mg tablet mouth at bedtime as needed for Anxiety. Daily Max: 1 mg documented as of this encounter Care Teams Printed Products Assembler Relationship Specialty Start Date End Date Esau Serrano PA-C PCP - General 09/03/[address] [place] [phone] Saray Nicholson, JOVAN Naturopathic Medicine 09/03/[address] [place] [address] documented as of this encounter
--- OUTSIDE RECORDS SUMMARY | 2022-01-24 10:47 | XMS_ITS | Encounter Summary ---
:1960 Author Organization [facility] Address [address] [place] [address] Care Team Providers Name Role Phone Esau Serrano PA-C Primary Care Provider [phone] Saray Nicholson ND Unavailable [phone] Reason for Visit Reason Onset Date Comments Follow-up 01/12/2022 Encounter Details Date Type Department Care Team Description 01/12/2022 Telephone [facility] Hematology Wesley Orozco, [facility] Follow-up & Oncology - Main Ca mpus [address] [place] [address] Social History Tobacco Use Types [...] encounter Miscellaneous Notes Telephone Encounter - Jerod Orozco LICSW - 01/12/2022 1030 EDT LYNETTE HAND Note: Reason for Call: I called the [employer] to check on the status of the pt's application for Darzalex Faspro. Pt will be getting 4 tx's in Jan. I listed 5 vials on the pharmacy request form when it should state 4. I spoke with Stacey. She advised that I write error next to the 5, initially it, write 4 and initial that as well. This was corrected and the pharmacy request form was sent back to the [facility], [place]. Pt Centered Identified Goal: No insurance, coverage for Darzalex Faspro Plan: I will f/u again w/ the foundation likely on Mon. Jerod SUE documented in this encounter Plan of Treatment Upcoming Encounters Date Type Specialty Care Team Description 01/28/2022 Phlebotomy Only Hematology and Oncology Blood Doctor, [facility] Hem Onc 01/28/2022 Appointment Infusion Therapy 02/04/2022 Phlebotomy Only Hematology and Oncology Blood Doctor, [facility] Hem Onc 02/04/2022 Office Visit Hematology and Oncology Henrik Marquez MD [address] [phone] (Isabel rk) 02/04/2022 Appointment Infusion Therapy 02/11/2022 Phlebotomy Only Hematology and Oncology Blood Doctor, [facility] Hem Onc 02/11/2022 Appointment Infusion Therapy 02/18/2022 Phlebotomy Only Hematology and Oncology Blood Doctor, [facility] Hem Onc 02/18/2022 Appointment Infusion Therapy 03/09/2022 Office Visit Hematology and Oncology Dayanna Roman, KODI [address] [phone] (Wo rk) documented as of this encounter Visit Diagnoses Not on filedocumented in this encounter Care Teams Loan Officer Relationship Specialty Start Date End Date Esau Serrano PA-C PCP - General 09/03/21 [address] [place] [address] Saray Nicholson ND Naturopathic Medicine 09/03/[address] [place] [id number] documented as of this encounter
--- OUTSIDE RECORDS SUMMARY | 2022-01-24 10:47 | XMS_ITS | Encounter Summary ---
:[address] [facility] Address [address] [place] [address] Care Team Providers Name Role Phone Esau Serrano PA-C Primary Care Provider [phone] Saray Nicholson ND Unavailable [phone] Encounter Details Date Type Department Care Team Description 12/24/2021 Orders Only [facility] Kathy Marquez Hematology & Oncology - A, [address] [address] [address], [place] [address] (Wo rk) Social History Tobacco Use Types [...] Phlebotomy Only Hematology and Oncology Blood Doctor, [facility] Hem Onc 01/28/2022 Appointment Infusion Therapy 02/04/2022 Phlebotomy Only Hematology and Oncology Blood Doctor, [facility] Hem Onc 02/04/2022 Office Visit Hematology and Oncology Henrik Marquez MD [address] [phone] (Wo rk) 02/04/2022 Appointment Infusion Therapy 02/11/2022 Phlebotomy Only Hematology and Oncology Blood Doctor, [facility] Hem Onc 02/11/2022 Appointment Infusion Therapy 02/18/2022 Phlebotomy Only Hematology and Oncology Blood Doctor, [facility] Hem Onc 02/18/2022 Appointment Infusion Therapy 03/09/2022 Office Visit Hematology and Oncology Dayanna Roman, KODI [address] [phone] (Wo rk) documented as of this encounter Visit Diagnoses Not on filedocumented in this encounter Care Teams Lagging Machine Operator Relationship Specialty Start Date End Date Esau Serrano PA-C PCP - General 09/03/21 [address] [place] [address] Saray Nicholson ND Naturopathic Medicine 09/03/[address] [place] [phone] documented as of this encounter
--- OUTSIDE RECORDS SUMMARY | 2022-01-24 10:47 | XMS_ITS | Encounter Summary ---
:1960 Author Organization [facility] Address [address] [place] [address] Care Team Providers Name Role Phone Esau Serrano PA-C Primary Care Provider [phone] Saray Nicohlson ND Unavailable [phone] Reason for Visit Reason Comments Follow-up Chemotherapy And Provider Visit Encounter Details Date Type Department Care Team Description 12/31/2021 Office Visit [facility] ANALI Marquez myloidosis Hematology & Henrik Dotson MD ([facility]) ([facility]) Oncology - [address] (Primary D x) [address] [place] [address] [address], [place] [address] (Wo rk) Social History Tobacco Use [...] making decisions? documented as of this encounter Progress Notes Henrik Marquez MD - 12/31/2021 1400 EDT 12/31/2021 FOLLOW UP PATIENT: Jong Copeland CHIEF COMPLAINT Follow-up and Chemotherapy And Provider Visit HISTORY OF PRESENT ILLNESS Interim Hx: Last seen 12/09/2021 Since his last visit, he reports he has significantly improved BLE swelling after torsemide dose wasadjusted to 10 mg daily and that he has tolerated the diuretic very well with no significant AE's. He denies major other problems associated with ongoing AL amyloidosis combination chemotherapy. Unfortunately his course was complicated by recent acquisition of COVID-19 infection which has been present mostly with URI symptoms and fatigue, but also cough which was dry in the first few days and became productive but with no evidence of SOB or GODINEZ and with normal O2 sat. His chemotherapy was skipped last week due to COVID infection but he is here today to resume therapy. 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 He was in his USOH until ~-05/2021 when he developed uncontrolled HTN and was found to have hypoalbuminemia + nephrotic range proteinuria w/ normal Cr. He was [place] [facility] and had extensive negative immunology testing testing. He then saw nephrology at [facility] and underwent renal biopsy on 08/18/2021 which showed extra-glomerular amyloid deposits w/ anti-lambda, anti-IgM and C3 stains (confirmed AL lambda) w/ randomly arranged fibrils in EM. He was referred to heme/onc in 09/10/2021 for concern of amyloidosis. Extensive work-up showed neutrophilic leukocytosis, borderline polycythemia (Hb ~17) but no other hematologic changes. FLC [place] ~7, Lambda ~2.65 but otherwise no abnormalities (KLR normal). SPEP was negative x2. UPEP 24h negative x1 and spot urine repeated also neagtive for monoclonal protein. No other complaints except for BLE edema. He had no other constitutional Sx. He had started PPx AC w/ warfarin by nephrology. At initial evaluation, he had AL amyloidosis type findings on kidney biopsy but with no detectable clonal cell population of monoclonal protein. DDx included AL amyloidosis vsMGRS vs PGNMID. We recommended more work-up for identifying a potential underlying malignant clone. ?? BM biopsy showed no clonal plasma or B cell population but showed an increased plasma cells with lambda predominance. PET showed no lymphadenopathy, plasmacytoma or bone lesions. Flow cytometry of peripheral blood showed no clonal lymphocytes. However, repeated 24h-UPEP (3rd sample) showed free monoclo nal lambda light chains confirmed with pathology. He thus met AL amyloid criteria by 10/06/2021 from positive amyloid in kidney and BM + urine M-protein + nephrotic Sd. Fat-pad biopsy showed no evidenceof amyloid Congo red staining. Due to minimal M protein involvement, treatment options included upfront [id number] ASCT without induction vs Gretel-CyBorD. He was an acceptable candidate for primary transplantation (although his LVEF was borderline ~50%) and upfront ASCT was preferred due to the advantage of potental for durable remission. Evaluation at amyloid expert center coincided with our assessment and plan. Unfortunately, patient was reluctant about upfront transplantation and he lacked medical insurance which made the procedure cost prohibitive. Thus, after securing cost support for chemotherapy, Gretel-CyborD regimen was started with C1D1 on 11/12/2021. PROBLEM LIST Patient Active Problem List Diagnosis ??? Essential hypertension ??? Hyperlipidemia ??? Hypertensive chronic kidney disease with stage 1 through stage 4 chronic kidney disease, or unspecified chronic kidney disease ??? Nephrotic syndrome with unspecified morphologic changes ??? AL amyloidosis (HCC-CMS) (HCC) PAST HISTORY Past Medical History: Diagnosis Date ??? Chronic kidney disease ??? Hyperlipidemia ??? Hypertension Past Surgical History: Procedure Laterality Date ??? UMBILICAL HERNIA REPAIR 2008 No family history on file. MEDICATIONS Medication ??? acyclovir (ZOVIRAX) 400 mg tablet ??? atorvastatin (LIPITOR) 80 mg tablet ??? dexAMETHasone (DECADRON) 4 mg tablet ??? ergocalciferol (VITAMIN D2) 1,250 mcg (50,000 unit) capsule ??? LORazepam (ATIVAN) 0.5 mg tablet ??? montelukast (SINGULAIR) 10 mg tablet ??? prochlorperazine (COMPAZINE) 10 mg tablet ??? torsemide (DEMADEX) 10 mg tablet ALLERGIES Allergies Allergen Reactions ??? Chlorthalidone Major cramping ??? Furosemide major cramping ??? Hydrochlorothiazide Major cramping ??? Lisinopril Continuous cough REVIEW OF SYSTEMS Constitutional: Positive for fatigue. HENT: Negative. Eyes: Negative. Respiratory: Positive for cough. Cardiovascular: Positive for leg swelling. Gastrointestinal: Negative. Endocrine: Negative. Genitourinary: Negative. Musculoskeletal: Negative. Skin: Negative. Allergic/Immunologic: Negative. Neurological: Negative. Hematological: Negative. All other systems reviewed and are negative. DIAGNOSTIC DATA Basic Metabolic Panel Lab Results Component Value Date NA 137 12/31/2021 K 4.3 12/31/2021 CL 106 12/31/2021 CO2 22 12/31/2021 BUN 21 12/31/2021 CREATININE 1.25 12/31/2021 CALCGFR 66 12/31/2021 CALCIUM 7.7 (L) 12/31/2021 MG 1.9 12/31/2021 Gastrointestinal Lab Results Component Value Date LDH 251 (H) 09/10/2021 ALKPHOS 119 12/31/2021 AST 42 12/31/2021 ALT 22 12/31/2021 TBIL <0.5 12/31/2021 TP 4.9 (L) 12/31/2021 LABALBU 2.4 (L) 12/31/2021 AGRATIO 1.0 12/31/2021 Complete Blood Count Lab Results Component Value Date WBC 11.43 (H) 12/31/2021 RBC 4.83 12/31/2021 HGB 14.9 12/31/2021 HCT 43.8 12/31/2021 MCV 91 12/31/2021 MCH 30.8 12/31/2021 MCHC 34.0 12/31/2021 PLT 375 12/31/2021 MPV 10.5 12/31/2021 RDWCV 16.1 (H) 12/31/2021 Differential (Absolute) Lab Results Component Value Date DIFFTYPE Auto 12/31/2021 NEUTROABS 10.53 (H) 12/31/2021 LYMPHSABS 2.34 09/22/2021 MONOSABS 1.35 (H) 09/22/2021 EOSABS 0.54 09/22/2021 PATHOLOGY KIDNEY, MILLE LACS, NEEDLE CORE BIOPSIES (08/18/2021): -Amyloidosis, AL (lambda)- type Glomerular and extra-glomerular vascular amyloid deposits are present. On immunofluorescence, the amyloid deposits show monotypic staining with anti- lambda as well as staining with C3 and the greatest immunoglobulin staining with anti-IgM. These findings suggest AL amyloidosis. [facility]osis which confirms that this represents AL (lambda) amyloidosis (see separate [facility] report). Electron microscopy shows deposition of small randomly arranged fibrils that are consistent with amyloid. Clinical correlation and follow up are recommendedto determine if there is an underlying clonal plasma cell proliferation/ B-cell lymphoma that is producing the amyloid protein. BONE MARROW BIOPSY (09/22/2021) -Cellular bone marrow with maturing trilineage hematopoiesis. -Focal amyloid present within vascular champagne. The findings are those of a cellular bone marrow with maturing trilineage hematopoiesis. Plasma cells are mildly increased (3-5%) with a slight lambda predominance. B-cells and T-cells are not increased and no lymphoid aggregates are seen. Concurrent flow cytometry shows no definitive immunophenotypicevidence of a clonal cell population. Focal amyloid is seen within rare vascular champagne. Taken together, there is no bone marrow involvement by plasma cell myeloma or lymphoma VITALS VSS reviewed from nursing notes Pain score: 0 ECOG Performance Status: 0 PHYSICAL EXAM Physical Exam Constitutional: He is oriented to person, place, and time. He appears well- developed and well-nourished. No distress. Pulmonary/Chest: Effort normal. No respiratory distress. Musculoskeletal: Cervical back: Normal range of motion. Neurological: He is alert and oriented to person, place, and time. Skin: He is not diaphoretic. Psychiatric: He has a normal mood and affect. Thought content normal. IMAGING PET CT WHOLE BODY 10/01/2021 1. No findings suspicious for primary neoplasm or metastatic disease. 2. Symmetric mild uptake noted in the level 2 and right level 3 cervical lymph nodes, likely reactive, 3. 2 mm smaller right upper lobe nodules, subpleural and fissural adjacent location, likely normal intrapulmonary lymph nodes. Dedicated inspiratory chest CT is recommended in 3 months to ensure stability. 4. Small left and trace right pleural effusions. 5. Mild coronary calcifications. 6. Left nonobstructive nephrolithiasis. ECHOCARDIOGRAM 10/14/2021 Adequate Conclusion Normal left ventricular wall thickness and chamber size. Estimated ejection fraction is 60%. Wall motion is normal Normal right ventricular size and systolic function Both atria arenormal in size There is no structural or hemodynamically significant valvular disease Dilated ascending aorta measuring 4.25 cm Wall motion Left Ventricle The left ventricle is normal size. The left ventricular systolic function is normal. The left ventricular ejection fraction is within the normal range. There is normal left ventricular wall thickness. There is normal LV segmental wall motion. Thereis no ventricular septal defect visualized. LVEF is 60%. Right Ventricle Right ventricle is grossly normal in size. Right ventricular systolic function is grossly normal. Atria The left atrium size is normal. DIAGNOSIS The encounter diagnosis was AL amyloidosis (HCC-CMS) ([facility]). ASSESSMENT AND PLAN 61 yo M who is followed for AL amyloidosis. Developed uncontrolled HTN + nephrotic proteinuria in 05/2021 w/ renal biopsy on 08/18/2021 showing extra-glomerular amyloid deposits w/ anti-lambda, anti-IgM and C3 stains (confirmed AL lambda) w/ randomly arranged fibrils in EM. W/U showed neutrophilic leukocytosis (WBC ~15K) w/o other hematologic changes. KLR was normal and SPEP + 24h UPEP were negative x2. BM biopsy showed no clonal plasma or B-cell population but increased plasma cells w/ lambda predominance and posotive congo red. PET showed no LAD, plasmacytoma or bone lesions. PB flow cytometry w/o clonal population. Despite extensive negative w/u for clonal process, a repeated 24h-UPEP (3rd sample) showed free monoclonal lambda. AL amyloid Dx was established on 10/06/2021. Pre-treatment w/u included negative fat-pad biopsy, ECHO w/ EF 50% and normal troponin but elevated proBNP, normal LFTs. Upfront ASCT vs Gretel-CyborD were considered w/ transplantation preferred due to potential for durable response. However, due to lack of insurance andpt preference, induction chemotherapy was decided w/ C1D1 11/12/2021. Here for follow up. 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 His evidence of volume overload persisted despite adjustment but was responsive to diuretics andhe is currently on torsemide 10 mg daily with good edema. Unfortunately, BP control has been less optimal with still SBP's >150 in all readings. He has had no other renal issues at this point including no electrolyte abnormalities and normal acid-base status. On exam today, he is euvolemic so we will continue with current dose of diuretic though I explained that torsemide will be titrated per physical exam volume assessment. Treatment: -[facility] -Cycles will be of 28 days as follows: ---Daratumumab/hyaluronidase 1800 mg SC on days 1, 8, 15, 22 (cycles 1 and 2) ---Velcade 1.3 mg/m2 SC on days 1, 8, 15, 22 ---Cyclophosphamide 300 mg/m2 PO on days 1, 8, 15, 22 ---Dexamethasone 20 mg PO on days 1, 8, 15, 22 (dose reduced for toxicity) -Plan is to complete a minimum of 4-6 induction cycle ?? Organ response to chemotherapy: -Renal: ---Repeated UPEP from 24h collection was negative after 1 cycle ---Remains w/ nephrotic proteinuria of 15g per 24h (unchanged from Dx) ---Secondary hypoalbuminemia remains c/b edema, now responsive to torsemide ---Improvement in albumin now consistently >2 ---Stable renal function -Cardiac: ---Pending repeat echo after completion of induction ---Will repeat a lipid panel today to assess cholesterol response ---BP controlled could be improved with SBP ~150s at this point. ---Improvement of proBNP > 30%? Hematologic response: -Repeated UPEP after C1 showed resolved monoclonal lambda spike -Elevated FLC and KLR now normalized -No clonal plasma coagulation to monitor ?? Supportive plan: -Continue high-dose atorvastatin 80 mg daily for hyperlipidemia from nephrotic syndrome -Continue torsemide 10 mg daily given current euvolemia (will titrate depending on edema and consider addition of spironolactone in case of electrolyte abnormalities). -Hypercoagulable state from nephrotic syndrome discussed but no role for empiric AC prophylaxis -We will recheck vitamin D level and if consistently low we will proceed with ergocalciferol 50,000 weekly ?? Henrik Knutson MD documented in this encounter Plan of Treatment Upcoming Encounters Date Type Specialty Care Team Description 01/28/2022 Phlebotomy Only Hematology and Oncology Blood Doctor, [facility] Hem Onc 01/28/2022 Appointment Infusion Therapy 02/04/2022 Phlebotomy Only Hematology and Oncology Blood Doctor, [facility] Hem Onc 02/04/2022 Office Visit Hematology and Oncology Henrik Marquez MD [address] [facility] [address] [place] [phone] (Wo rk) 02/04/2022 Appointment Infusion Therapy 02/11/2022 Phlebotomy Only Hematology and Oncology Blood Doctor, [facility] Hem Onc 02/11/2022 Appointment Infusion Therapy 02/18/2022 Phlebotomy Only Hematology and Oncology Blood Doctor, [facility] Hem Onc 02/18/2022 Appointment Infusion Therapy 03/09/2022 Office Visit Hematology and Oncology Dayanna Roman NP [address] [facility] [address] [place] [address] (Wo rk) documented as of this encounter Procedures Procedure Name Priority Date/Time Associated Diagnosis Comme nts NT PRO BNP Add-On 12/31/2021 13:57 AL amyloidosis Results f or this EDT ([facility]) ([facility]) procedure ar e in the results section. LIPID PROFILE Add-On 12/31/2021 13:57 AL amyloidosis Results for this (INCLUDES EDT ([facility]) ([facility]) procedure ar e in CHOLESTEROL, the results TRIGLYCERIDES, HDL, section. LDL) documented in this encounter Results (ABNORMAL) LIPID PROFILE (INCLUDES CHOLESTEROL, TRIGLYCERIDES, HDL, LDL) (12/31/2021 13:57 EDT) Cholesterol 384 (H)Comment: <200 mg/dL [facility] Note that [facility] therapeutic goals SERVICES will differ between patients based on cardiac risk factors and current medical therapy. HDL 46Comment: Note >=40 mg/dL [facility] that therapeutic [facility] goals will differ SERVICES between patients based on cardiac risk factors and current medical therapy. LDL, Calculated 279 (H)Comment: <160 mg/dL [facility] Note that [facility] therapeutic goals SERVICES will differ between patients based on cardiac risk factors and current medical therapy. Triglyceride 297 (H)Comment: <=150 mg/dL [facility] Note that [facility] therapeutic goals SERVICES will differ between patients based on cardiac risk factors and current medical therapy. Chol/HDL Ratio 8.3Comment: No See Note [facility] reference range [facility] has been SERVICES established for CHOL/HDL ratio. Non HDL Cholesterol 338 (H)Comment: <160 mg/dL [facility] Note that [facility] therapeutic goals SERVICES will differ between patients based on cardiac risk factors and current medical therapy. Specimen Blood - Venous blood (substance) Performing Organization Address City/[facility] Code Phon e Number [facility] [address] [place] [address] SERVICES (ABNORMAL) NT PRO BNP (12/31/2021 13:57 EDT) Pathologist Sig nature NT-pro BNP 1,400 (H)Comment: The <125 pg/mL [facility] results of this assay LABORATORY SERVICES can be falsely lowered due to consumption of Biotin. Specimen Blood - Venous blood (substance) Performing Organization Address [facility] Phon e Number [facility] [address] [place] [address] SERVICES documented in this encounter Visit Diagnoses Diagnosis AL amyloidosis (HCC-CMS) (HCC) - Primary Other amyloidosis documented in this encounter Care Teams Boat Fueler Relationship Specialty Start Date End Date Esau Serrano PA-C PCP - General 09/03/21 [address] [place] [phone] Saray Nicholson ND Naturopathic Medicine 09/03/[address] [place] [phone] (work) documented as of this encounter
--- OUTSIDE RECORDS SUMMARY | 2022-01-24 10:47 | XMS_ITS | Encounter Summary ---
:1960 Author Organization [facility] Address [address] [place] [address] Care Team Providers Name Role Phone Esau Serrano PA-C Primary Care Provider [phone] Saray Nicholson ND Unavailable [phone] Reason for Visit Reason Onset Date Comments Patient Outreach 01/06/2022 Encounter Details Date Type Department Care Team Description 01/06/2022 Telephone [facility] Yris Marquez ent Outreach Hematology & Oncology - Henrik Dotson MD [id number] [place] [address], [place] [address] (Wo rk) Social History Tobacco [...] this encounter Miscellaneous Notes Telephone Encounter - Abbe Simon - 01/06/2022 1036 EDT Haleigh(EC) states patient was seen by a community doctor and had a chest xray done due to a severe cough and pain in right side. The md believes he seen something that should be taken a better look at with a CT scan and the patient is calling to see if one can ordered. Patient has uploaded the CXR imaging and report via [employer]. documented in this encounter Plan of Treatment Upcoming Encounters Date Type Specialty Care Team Description 01/28/2022 Phlebotomy Only Hematology and Oncology Blood Doctor, [facility] Hem Onc 01/28/2022 Appointment Infusion Therapy 02/04/2022 Phlebotomy Only Hematology and Oncology Blood Doctor, [facility] Hem Onc 02/04/2022 Office Visit Hematology and Oncology Henrik Marquez MD [address] [phone] (Isabel whyte) 02/04/2022 Appointment Infusion Therapy 02/11/2022 Phlebotomy Only Hematology and Oncology Blood Doctor, [facility] Hem Onc 02/11/2022 Appointment Infusion Therapy 02/18/2022 Phlebotomy Only Hematology and Oncology Blood Doctor, [facility] Hem Onc 02/18/2022 Appointment Infusion Therapy 03/09/2022 Office Visit Hematology and Oncology Dayanna Roman, KODI [address] [address] (Isabel whyte) documented as of this encounter Visit Diagnoses Not on filedocumented in this encounter Care Teams Senior Cost Accountant Relationship Specialty Start Date End Date Esau Serrano PA-C PCP - General 09/03/21 [address] [place] [address] Saray Nicholson, JOVAN Naturopathic Medicine 09/03/[address] [place] [id number] documented as of this encounter
--- OUTSIDE RECORDS SUMMARY | 2022-01-24 10:47 | XMS_ITS | Clinical Summary ---
:1960 Author Organization [facility] Address [address] [place] [address] Care Team Providers Name Role Phone Esau Serrano PA-C Primary Care Provider [phone] Saray Nicholson ND Unavailable [phone] Allergies Active Allergy Reactions Severity Noted Date Comments Chlorthalidone 07/07/2021 Major crampi ng Furosemide 07/07/2021 major cramping Hydrochlorothiazide 07/07/2021 Major c ramping Lisinopril 07/07/2021 Continuous cou gh Medications Medication Sig Dispensed Refills Start End Date Status Date prochlorperazine Take 1 Tablet by 30 Tablet 1 Active (COMPAZINE) 10 mg mouth every 6 2 tablet hours as needed for Nausea. dexAMETHasone Take 10 tablets 100 Tablet 1 Active (DECADRON) 4 mg (40 mg) orally 2 tablet once a week on chemotherapy days. Take with food. acyclovir (ZOVIRAX) Take 1 Tablet by 60 Tablet 5 Active 400 mg tablet mouth 2 times 2 daily. atorvastatin Take 80 mg by 0 Act melvi (LIPITOR) 80 mg mouth daily. tablet ergocalciferol Take 50,000 0 Act melvi (VITAMIN D2) 1,250 Units by mouth mcg (50,000 unit) every 7 days. capsule montelukast TAKE 1 TABLET BY 30 Tablet 0 A ctive (SINGULAIR) 10 mg MOUTH ON THE DAY 2 tablet BEFORE, DAY OF AND DAY AFTER CHEMOTHERAPY torsemide (DEMADEX) Take one tablet 60 Tablet 1 Active 10 mg tablet daily, then an 2 additional 10 mg PRN for a 3-5 lb weight gain. LORazepam (ATIVAN) TAKE 2 TABLETS 30 Tablet 0 Active 0.5 mg tablet BY MOUTH ONCE 2 DAILY AT BEDTIME NEEDED FOR ANXIETY (MAX 2 TABLETS A DAY) LORazepam (ATIVAN) Take 2 Tablets 30 Tablet 1 Discontinued 0.5 mg tablet by mouth at 2 22 bedtime as needed for Anxiety. Daily Max: 1 mg Active Problems Patient Care Coordination Note Formatting of this note might be differe nt from the original. PCP is Maria Fernanda Serrano but he also sees erika uropathic Saray Alvarez PT is uninsured and has PFAP level E, pe r Jerod Orozco PT is not eligible for [facility], working on assistance from [employer] for drug costs. 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 Nephrotic syndrome with unspecified morphologic change s 07/12/2021 Hypertensive chronic kidney disease with stage 1 throu gh stage 4 chronic 07/07/2021 kidney disease, or unspecified chronic kidney disease Essential hypertension 05/10/2021 Hyperlipidemia 05/10/2021 Resolved Problems Problem Noted Date Resolved Date Cardiac murmur, unspecified 07/07/2021 10/06/2021 Tachycardia, unspecified 07/07/2021 10/06/2021 Microscopic hematuria 05/10/2021 10/06/2021 Hepatomegaly 04/28/2021 10/06/2021 Encounters Date Type Specialty Care Team Description 01/21/2022 Phlebotomy Only Hematology and Blood Doctor, ANALI wolfe Oncology [facility] ([facility]) (HCC ) (Primary Dx) 01/21/2022 Hospital Encounter Infusion Therapy AL am yloidosis ([facility]) (HCC) (Primary Dx) 01/20/2022 Telephone Hematology and Jerod Orozco, Follow-u p Oncology [employer] 01/14/2022 Telephone Hematology and Jerod Orozco, Follow-u p Oncology [employer]NAGER 01/12/2022 Telephone Hematology and Jerod Orozco, Follow-u p Oncology [employer]NAGER 01/11/2022 Orders Only Hematology and Adrianzen Oncology Henrik Knutson MD 01/11/2022 Orders Only Hematology and Gabby Duran hot metal charger 01/11/2022 Telephone Hematology and Jerod Orozco, Follow-u p Oncology [employer]NAGER 01/11/2022 Refill Hematology and Dayanna Raman Medication s Refill Oncology B, BRIM STIFFENER 01/10/2022 Telephone Hematology and Jessica Thompson, Follow-up hot metal charger 01/09/2022 Telephone Hematology and Moncho Burris MD Pneumonia Oncology 01/09/2022 Lab Requisition Clinical Outr Resulting Laboratory Lab, Provider 01/07/2022 Lab Requisition Clinical Outr Resulting Laboratory Lab, Provider 01/07/2022 Lab Requisition Clinical Outr Resulting Laboratory Lab, Provider 01/07/2022 Lab Requisition Clinical Outr Resulting Laboratory Lab, Provider 01/06/2022 Orders Only Hematology and Jodianzen AL amyloidosi s ([facility]) ([facility]) (Primary Dx); Oncology Henrik Knutson COVID-19 MD 01/06/2022 Telephone Hematology and Jodianzen [facility] Henrik Knutson MD 12/31/2021 Office Visit Hematology and Adrianzen AL amyloidosi s Oncology Henrik Knutson ([facility]) (HCC) (Primary Dx) 12/31/2021 Hospital Encounter Infusion Therapy AL am yloidosis ([facility]) (HCC) (Primary Dx) 12/24/2021 - Hospital Encounter Infusion Therapy AL am yloidosis 12/25/2021 ([facility]) ([facility]) (Primary Dx) 12/24/2021 Hospital Encounter Infusion Therapy AL am yloidosis ([facility]) ([facility]) 12/24/2021 Orders Only Hematology and Elaina Oncology Henrik Knutson MD 12/24/2021 Orders Only Hematology and Elaina Oncology Henrik Knutson MD 12/24/2021 Prep for Procedure Hematology and Jessica Thompson AL a myloidosis hot metal charger ([facility]) ([facility]) (Primary Dx) 12/24/2021 Orders Only Hematology and Jessica Thompson hot metal charger 12/24/2021 Telephone Hematology and Elaina Moncada ns Oncology Henrik Knutson MD 12/22/2021 Telephone Hematology and Jerod Orozco, Follow-u p Oncology [employer]NAGER 12/21/2021 Telephone Hematology and [place], Jerod, Follow-u p Oncology [employer]NAGER 12/17/2021 Phlebotomy Only Hematology and Blood Doctor, ANALI amyloi dosis Oncology [facility] ([facility]) (HCC ) (Primary Dx) 12/17/2021 Hospital Encounter Infusion Therapy AL am yloidosis ([facility]) (HCC) (Primary Dx) 12/17/2021 Orders Only Hematology and Adrianzen AL rameshosi s Oncology Henrik Knutson ([facility]) (HCC) 12/15/2021 Orders Only Hematology and Adrianzen Oncology Henrik Knutson MD 12/15/2021 Telephone Hematology and Jerod Orozco, Follow-u p Oncology [employer]NAGER 12/13/2021 Orders Only Hematology and Dayanna Raman Oncology B, BRIM STIFFENER 12/10/2021 Hospital Encounter Infusion Therapy AL am yloidosis ([facility]) (HCC) (Primary Dx) 12/10/2021 Phlebotomy Only Hematology and Blood Doctor, ANALI richardsonoi dosis Oncology [facility] ([facility]) (HCC ) (Primary Dx) 12/10/2021 Telephone Hematology and Jerod Orozco, Follow-u p Oncology [employer] MANAGER 12/09/2021 Telemedicine Hematology and Dayanna Raman osis Oncology B, BRIM STIFFENER ([facility]) (HCC) (Primary Dx) 12/08/2021 Refill Hematology and Dayanna Raman Oncology B, BRIM STIFFENER 12/08/2021 Telephone Hematology and Jerod Orozco, Follow-u p Oncology [employer]NAGER 12/06/2021 Telephone Hematology and Jerod Orozco, Follow-u p Oncology [employer] MANAGER 12/03/2021 Hospital Encounter Infusion Therapy AL am yloidosis ([facility]) (HCC) (Primary Dx) 12/03/2021 Phlebotomy Only Clinical Associate Professor Of Communication, Acc AL amyloido sis Laboratory Phlebotomy ([facility]) (HCC) 11/26/2021 Phlebotomy Only Hematology and Blood Doctor, AL amyloi dosis Oncology [facility] ([facility]) (HCC ) (Primary Dx) 11/26/2021 Hospital Encounter Infusion Therapy AL am yloidosis ([facility]) (HCC) (Primary Dx) 11/19/2021 Phlebotomy Only Hematology and Blood Doctor, AL amyloi d nephropathy ([facility]) (HCC); Oncology [facility] AL amyloidosis ([facility]) (HCC) 11/19/2021 Hospital Encounter Infusion Therapy AL am yloidosis ([facility]) (HCC) (Primary Dx) 11/19/2021 Documentation Visit Hematology and Milly, Oncology JACKIE Cordero 11/19/2021 Orders Only Nephrology Carmen Downing MD 11/18/2021 Telephone Hematology and Jerod Orozco Follow-u p Oncology [employer]NAGER 11/17/2021 Orders Only Hematology and Elaina Oncology Henrik Knutson MD 11/16/2021 Telephone Hematology and Jerod Orozco Follow-u p Oncology [employer] MANAGER 11/15/2021 Telephone Hematology and Jerod Orozco Follow-u p Oncology [employer] MANAGER 11/12/2021 Telephone Hematology and Jerod Orozco Follow-u p Oncology [employer] MANAGER 11/11/2021 Telephone Hematology and Jerod Orozco Follow-u p; Oncology [employer] MANAGER Returning Call 11/10/2021 Telephone Hematology and Jerod Orozco Medicati on Oncology [employer] MANAGER Management 11/09/2021 - Hospital Encounter Infusion Therapy Cance led (Patient) 11/10/2021 11/09/2021 Telephone Hematology and Jerod Orozco Follow-u p Oncology [employer] MANAGER 11/08/2021 Telephone Hematology and Jerod Orozco Follow-u p Oncology [employer] MANAGER 11/08/2021 Telephone Hematology and Adrianzen Appointment R elated Oncology Henrik Knutson MD 11/04/2021 Telemedicine Hematology and Dayanna Raman AL amyloid osis Oncology B, BRIM STIFFENER ([facility]) (HCC) (Primary Dx) 11/04/2021 Telemedicine Nephrology Carmen Downing MD with pathologic al lesion in kidne y (Primary Dx) 11/04/2021 Telephone Hematology and Dayanna Raman Pharmacy Oncology B, BRIM STIFFENER 11/04/2021 Telephone Hematology and Jreod Orozco Follow-u p Oncology [employer] MANAGER 11/04/2021 Telephone Hematology and Jerod Orozco Follow-u p Oncology [employer] MANAGER 11/02/2021 Telephone Hematology and Jerod Orozco Follow-u p Oncology [employer] MANAGER 11/01/2021 Telephone Hematology and Dayanna Raman t Related Oncology B, BRIM STIFFENER 11/01/2021 Telephone Hematology and Jerod Orozco, Follow-u p Oncology [employer] MANAGER 10/29/2021 Telephone Hematology and Jerod Orozco, Follow-u p Oncology [employer] MANAGER 10/28/2021 Telephone Nephrology Zo Vasquez, Follow-up; RN Requesting Soon er Appointment 10/28/2021 Telephone Hematology and Jerod Orozco, Follow-u p Oncology [employer] MANAGER 10/26/2021 Telephone Hematology and Jerod Orozco, Follow-u p Oncology [employer] MANAGER from Last 3 Months Surgical History Surgery Date Site/Laterality Comments UMBILICAL HERNIA REPAIR 04/24/2007 - 04/23/2008 Medical History Medical History Date Comments Hypertension Hyperlipidemia Chronic kidney disease Social History Tobacco Use Types Packs/Day Years [...] at Date Recorded Male 10/05/2021 16:55 EDT Last Filed Vital Signs Vital Sign Reading Time Taken Comments Blood Pressure 162/106 01/21/2022 1244 EDT Pulse 109 01/21/2022 1244 EDT Temperature 36.4 ??C (97.5 ??F) 01/21/2022 1244 EDT Respiratory Rate 15 01/21/2022 1244 EDT Oxygen Saturation 98% 01/21/2022 1244 EDT Inhaled Oxygen Concentration - - Weight 104.7 kg (230 lb 14.4 oz) 01/21/2022 1244 EDT Height 181.6 cm (5' 11.5) 11/04/2021 0908 EDT Body Mass Index 31.76 11/04/2021 0908 EDT Plan of Treatment Upcoming Encounters Date Type Specialty Care Team Description 01/28/2022 Phlebotomy Only Hematology and Oncology Blood Doctor, [facility] 01/28/2022 Appointment Infusion Therapy 02/04/2022 Phlebotomy Only Hematology and Oncology Blood Doctor, [facility] 02/04/2022 Office Visit Hematology and Oncology Henrik Marquez MD [address], [facility] [address] [place] [id number] (Wo rk) 02/04/2022 Appointment Infusion Therapy 02/11/2022 Phlebotomy Only Hematology and Oncology Blood Doctor, [facility] 02/11/2022 Appointment Infusion Therapy 02/18/2022 Phlebotomy Only Hematology and Oncology Blood Doctor, [facility] 02/18/2022 Appointment Infusion Therapy 03/09/2022 Office Visit Hematology and Oncology Dayanna Roman NP [address], [facility] [address] [place] [address] (Wo rk) Health Maintenance Due Date Last Done Comments Hepatitis C Screen 1960 COVID-19 Vaccine (#1) 1960 Procedures Procedure Name Priority Date/Time Associated Comments Diagnosis IMMUNOGLOBULINS Routine 01/21/2022 12:43 AL amyloidosis Result s for this EDT ([facility]) ([facility]) procedure ar e in the results section. SERUM FREE LIGHT CHAINS Routine 01/21/2022 12:43 AL amyloidosi s Results for this EDT ([facility]) ([facility]) procedure ar e in the results section. PROTEIN, TOTAL Routine 01/21/2022 12:43 AL amyloidosis EDT ([facility]) ([facility]) COMPREHENSIVE METABOLIC STAT 01/21/2022 12:43 AL amyloidosi s Results for this PANEL (ONCOLOGY USE EDT ([facility]) ([facility]) proce dure are in ONLY-INC MG) the results section. COMPLETE BLOOD COUNT STAT 01/21/2022 12:43 AL amyloidosis R esults for this AND DIFF, CHEMO EDT ([facility]) ([facility]) procedure are in the results section. LEGIONELLA ANTIGEN Routine 01/08/2022 19:30 Resul ts for this DETECTION, URINE EDT procedure a re in the results section. HIV 1/2 ANTIGEN AND Routine 01/07/2022 11:25 Resu lts for this ANTIBODY, 4TH EDT procedure are in GENERATION the results section. FIBRINOGEN Routine 01/07/2022 11:25 Results for this EDT procedure are i n the results section. CHRONIC HEPATITIS Routine 01/07/2022 11:25 Result s for this PROFILE, UNKNOWN TYPE EDT proced ure are in the results section. IMMUNOTYPING, SERUM Today 12/31/2021 13:57 AL amyloidosis Re sults for this EDT ([facility]) ([facility]) procedure ar e in the results section. LIPID PROFILE (INCLUDES Add-On 12/31/2021 13:57 AL amyloidosi s Results for this CHOLESTEROL, EDT ([facility]) ([facility]) procedure ar e in TRIGLYCERIDES, HDL, the resu lts LDL) section. NT PRO BNP Add-On 12/31/2021 13:57 AL amyloidosis Results f or this EDT ([facility]) ([facility]) procedure ar e in the results section. IMMUNOGLOBULINS Routine 12/31/2021 13:57 AL amyloidosis Result s for this EDT ([facility]) ([facility]) procedure ar e in the results section. SERUM FREE LIGHT CHAINS Routine 12/31/2021 13:57 AL amyloidosi s Results for this EDT ([facility]) ([facility]) procedure ar e in the results section. SPEP, INCLUDES Routine 12/31/2021 13:57 AL amyloidosis Results for this QUANTITATION OF EDT ([facility]) ([facility]) procedure are in MONOCLONAL SPIKE the results section. PROTEIN, TOTAL Routine 12/31/2021 13:57 AL amyloidosis EDT ([facility]) ([facility]) MONOCLONAL PROTEIN Routine 12/31/2021 13:57 AL amyloidosis Res ults for this MONITORING PANEL, SERUM EDT ([facility]) ([facility]) p rocedure are in the results section. COMPREHENSIVE METABOLIC STAT 12/31/2021 13:57 AL amyloidosi s Results for this PANEL (ONCOLOGY USE EDT ([facility]) ([facility]) proce dure are in ONLY-INC MG) the results section. COMPLETE BLOOD COUNT STAT 12/31/2021 13:57 AL amyloidosis R esults for this AND DIFF, CHEMO EDT ([facility]) ([facility]) procedure are in the results section. IMMUNOGLOBULINS Routine 12/17/2021 12:12 AL amyloidosis Result s for this EDT ([facility]) ([facility]) procedure ar e in the results section. SERUM FREE LIGHT CHAINS Routine 12/17/2021 12:12 AL amyloidosi s Results for this EDT ([facility]) ([facility]) procedure ar e in the results section. SPEP, INCLUDES Routine 12/17/2021 12:12 AL amyloidosis Results for this QUANTITATION OF EDT ([facility]) ([facility]) procedure are in MONOCLONAL SPIKE the results section. PROTEIN, TOTAL Routine 12/17/2021 12:12 AL amyloidosis EDT ([facility]) ([facility]) MONOCLONAL PROTEIN Routine 12/17/2021 12:12 AL amyloidosis Res ults for this MONITORING PANEL, SERUM EDT ([facility]) ([facility]) p rocedure are in the results section. COMPREHENSIVE METABOLIC STAT 12/17/2021 12:12 AL amyloidosi s Results for this PANEL (ONCOLOGY USE EDT ([facility]) ([facility]) proce dure are in ONLY-INC MG) the results section. COMPLETE BLOOD COUNT STAT 12/17/2021 12:12 AL amyloidosis R esults for this AND DIFF, CHEMO EDT ([facility]) ([facility]) procedure are in the results section. URINE MONOCLONAL Routine 12/17/2021 6:45 AL amyloidosis Result s for this PROTEIN STUDY (UPEP EDT ([facility]) ([facility]) proce dure are in WITH IMMUNOTYPING), 24 the r esults HR section. PROTEIN, TOTAL, 24 HR, Routine 12/17/2021 6:45 AL amyloidosis URINE EDT ([facility]) (HCC) URINE MONOCLONAL Routine 12/17/2021 6:45 AL amyloidosis Result s for this PROTEIN STUDY (UPEP EDT ([facility]) ([facility]) proce dure are in WITH IMMUNOTYPING), 24 the r esults HR section. IMMUNOTYPING, SERUM Today 12/10/2021 13:15 AL amyloidosis Re sults for this EDT ([facility]) ([facility]) procedure ar e in the results section. IMMUNOGLOBULINS Routine 12/10/2021 13:15 AL amyloidosis Result s for this EDT ([facility]) ([facility]) procedure ar e in the results section. SERUM FREE LIGHT CHAINS Routine 12/10/2021 13:15 AL amyloidosi s Results for this EDT ([facility]) ([facility]) procedure ar e in the results section. SPEP, INCLUDES Routine 12/10/2021 13:15 AL amyloidosis Results for this QUANTITATION OF EDT ([facility]) ([facility]) procedure are in MONOCLONAL SPIKE the results section. PROTEIN, TOTAL Routine 12/10/2021 13:15 AL amyloidosis EDT ([facility]) ([facility]) MONOCLONAL PROTEIN Routine 12/10/2021 13:15 AL amyloidosis Res ults for this MONITORING PANEL, SERUM EDT ([facility]) ([facility]) p rocedure are in the results section. COMPREHENSIVE METABOLIC STAT 12/10/2021 13:15 AL amyloidosi s Results for this PANEL (ONCOLOGY USE EDT ([facility]) ([facility]) proce dure are in ONLY-INC MG) the results section. COMPLETE BLOOD COUNT STAT 12/10/2021 13:15 AL amyloidosis R esults for this AND DIFF, CHEMO EDT ([facility]) ([facility]) procedure are in the results section. COMPREHENSIVE METABOLIC STAT 12/03/2021 13:06 AL amyloidosi s Results for this PANEL (ONCOLOGY USE EDT ([facility]) ([facility]) proce dure are in ONLY-INC MG) the results section. COMPLETE BLOOD COUNT STAT 12/03/2021 13:06 AL amyloidosis R esults for this AND DIFF, CHEMO EDT ([facility]) ([facility]) procedure are in the results section. COMPREHENSIVE METABOLIC STAT 11/26/2021 12:40 AL amyloidosi s Results for this PANEL (ONCOLOGY USE EDT ([facility]) ([facility]) proce dure are in ONLY-INC MG) the results section. COMPLETE BLOOD COUNT STAT 11/26/2021 12:40 AL amyloidosis R esults for this AND DIFF, CHEMO EDT ([facility]) ([facility]) procedure are in the results section. COMPREHENSIVE METABOLIC STAT 11/19/2021 13:28 AL amyloidosi s Results for this PANEL (ONCOLOGY USE EDT ([facility]) ([facility]) proce dure are in ONLY-INC MG) the results section. COMPLETE BLOOD COUNT STAT 11/19/2021 13:28 AL amyloidosis R esults for this AND DIFF, CHEMO EDT ([facility]) ([facility]) procedure are in the results section. URINE MONOCLONAL Routine 11/19/2021 13:17 Nephrotic syndrome R esults for this PROTEIN STUDY (UPEP EDT procedur e are in WITH IMMUNOTYPING) the resul ts PERFORMABLE section. PROTEIN, TOTAL, RANDOM, Routine 11/19/2021 13:17 Nephrotic syn drome URINE EDT URINE MONOCLONAL Routine 11/19/2021 13:17 Nephrotic syndrome R esults for this PROTEIN STUDY ([facility]P EDT procedur e are in WITH IMMUNOTYPING) the resul ts section. from Last 3 Months Results (ABNORMAL) COMPREHENSIVE METABOLIC PANEL (ONCOLOGY USE ONLY-INC MG) (01/21/2022 12:43 EDT)Only the most recent of7 resultswithin the time period is included. Pathologist Sig nature Sodium 140 136 - 145 [facility] mmol/L LABORATORY SERVICES Potassium 4.2 3.5 - 5.0 [facility] mmol/L LABORATORY SERVICES Chloride 105 96 - 110 mmol/L [facility]ORY SERVICES CO2 Total 27 22 - 32 mmol/L [facility]ORY SERVICES Glucose 150 (H) 70 - 100 mg/dL [facility] SERVICES BUN 24 10 - 26 mg/dL [facility] SERVICES Creatinine 1.16 0.66 - 1.25 [facility] mg/dL LABORATORY SERVICES eGFR 72 >60 [facility] mL/min/1.73m2 LABORATORY SERVICES Total Protein 4.9 (L) 6.3 - 8.2 g/dL [facility] LABOR[facility]ORY SERVICES Albumin 2.6 (L) 3.4 - 4.9 g/dL [facility] LABOR[facility]ORY SERVICES Alkaline Phosphatase 126 38 - 126 U/L [facility]ORY SERVICES AST 34 15 - 46 U/L [facility] SERVICES ALT 19 <50 U/L [facility] SERVICES Bilirubin, Total <0.5 <1.4 mg/dL [facility]ORY SERVICES Calcium 8.3 (L) 8.5 - 10.5 [facility] mg/dL LABORATORY SERVICES Magnesium 2.0 1.7 - 2.8 mg/dL [facility] LABORATORY SERVICES Albumin/Globulin 1.1 1.0 - 2.5 [facility] Ratio LABORATORY SERVICES Anion Gap 8 5 - 14 [facility] LABORATORY SERVICES Specimen Blood - Venous blood (substance) Performing Organization Address City/State/ZIP Code Phon e Number [facility] LABORATORY [address] [place] [address] SERVICES SERUM FREE LIGHT CHAINS (01/21/2022 12:43 EDT)Only the most recent of4 results within the time period is included. Pathologist Sig nature [place] Free Lt Chain 1.09 0.33 - 1.94 [facility] mg/dL LABORATORY SERVICES [place] Free Lt Chain 1.63 0.57 - 2.63 [facility] mg/dL LABORATORY SERVICES [place]/Lambda Ratio 0.67 0.26 - 1.65 [facility] LABORATORY SERVICES Specimen Blood - Venous blood (substance) Performing Organization Address City/[facility] Phon e Number [facility] LABORATORY [address] [place] [address] SERVICES (ABNORMAL) COMPLETE BLOOD COUNT AND DIFF, CHEMO (01/21/2022 12:43 EDT)Only the most recent of7 resultswithin the time period is included. WBC 17.19 (H) 4.00 - 10.40 [facility] K/[facility] LABORATORY SERVICES RBC 4.52 4.36 - 5.78 [facility] [facility] LABORATORY SERVICES Hemoglobin 13.7 (L) 13.8 - 17.3 [facility] gm/dL LABORATORY SERVICES HCT 42.2 39.5 - 50.2 % [facility] LABORATORY SERVICES MCV 93 81 - 95 fl [facility] LABORATORY SERVICES MCH 30.3 27.6 - 33.0 pg [facility] LABORATORY SERVICES MCHC 32.5 (L) 32.8 - 36.4 [facility] gm/dL LABORATORY SERVICES RDW-CV 16.5 (H) <14.2 % [facility] LABORATORY SERVICES RDW-SD 55.8 (H) <46.0 fl [facility] LABORATORY SERVICES PLT 500 (H) 141 - 377 K/[facility] LABORATORY SERVICES MPV 10.2 9.5 - 12.7 fl [facility] LABORATORY SERVICES Neutrophils 95.2 % [facility] LABORATORY SERVICES Absolute Neutrophils 16.37 (H) 2.20 - 8.85 [facility] LABORATORY SERVICES Type of Differential: Auto [facility] LABORATORY SERVICES Specimen Blood - Venous blood (substance) Performing Organization Address City/[facility]/ZIP Code Phon e Number [facility] LABORATORY [address] [place] [address] SERVICES (ABNORMAL) IMMUNOGLOBULINS (01/21/2022 12:43 EDT)Only the most recent of4 resultswithin the time period is included. Pathologist Sig nature IgG 140 (L) 610-1,616 mg/dL [facility] LABORA TORY SERVICES IgA 111 85 - 499 mg/dL [facility] LABORAT ORY SERVICES IgM 54 35 - 242 mg/dL [facility] Specimen Blood - Venous blood (substance) Performing Organization Address [facility]/ZIP [facility] Phon e Number [facility] LABORATORY [address] [place] [address] SERVICES PROTEIN, TOTAL (01/21/2022 12:43 EDT)Only the most recent of4 resultswithin the time period is included. Specimen Blood - Venous blood (substance) Performing Organization Address [facility]/ZIP [facility] Phon e Number [facility] LABORATORY [address] [place] [address] SERVICES LEGIONELLA ANTIGEN DETECTION, URINE (01/08/2022 19:30 EDT) Pathologist Sig nature Legionella Antigen Negative Negative [facility] Detection LABORATORY SERVICES Specimen Urine Performing Organization Address [facility] Phon e Number [facility] LABORATORY [address] [place] [address] SERVICES CHRONIC HEPATITIS PROFILE, UNKNOWN TYPE (01/07/2022 11:25 EDT) Hep B Surface Ag Negative Negative [facility] LABORATORY SERVICES Hep B Surface Ab, <3.1 See Note mIU/mL [facility] Quantitative Comment: [facility] Reference Range for Hep B Surface Ab, Quant: SERVICES Positive: >= 10.0 mIU/mL Negative: ??< 10.0 mIU/mL Patient is presumed to not be immune to infection with Hepatitis B Virus. Hep B Surface Ab, Negative See Note [facility] Qualitative Comment: [facility] Reference Range for Hep B Surface Ab, Qual: SERVICES Unvaccinated: ??Negative Vaccinated: ??Positive Hepatitis B Core Negative Negative [facility] MEDICAL Ab, Total CENTER LABORATORY SERVICES Hep C Antibody Negative Negative [facility] LABORATORY SERVICES Specimen Blood - Venous blood (substance) Performing Organization Address [facility] Phon e Number [facility] LABORATORY [address] [place] [address] SERVICES (ABNORMAL) FIBRINOGEN (01/07/2022 11:25 EDT) Pathologist Sig nature Fibrinogen >1000 (H) 171 - 384 mg/dL [facility] LABORATORY SERVICES Specimen Blood - Venous blood (substance) Performing Organization Address City/State/ZIP Code Phon e Number [facility] LABORATORY [address] [place] [address] SERVICES HIV 1/2 ANTIGEN AND ANTIBODY, 4TH GENERATION (01/07/2022 11:25 EDT) [facility] HIV 1 and 2 NegativeComment: If Negative [facility] Antibody/p24 acute HIV-1 LABORATORY Antigen, 4th infection is SERVICES Generation suspected in a high risk patient, submit plasma specimen for HIV-1 RNA quantitation test. Specimen Blood - Venous blood (substance) Narrative [facility] LABORATORY SERVICES - 01/09/2022 14:07 EDT Fourth Generation assay performed on the Siemens Centaur XPT. Performing Organization Address City/[facility]/ZIP Code Phon e Number [facility] LABORATORY [address] [place] [address] SERVICES IMMUNOTYPING, SERUM (12/31/2021 13:57 EDT)Only the most recent of2 resultswithin the time period is included. 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 Reviewed by: Ruben Wang MD 01/03/2022 1458 Specimen Blood - Venous blood (substance) Performing Organization Address City/[facility]/ZIP Code Phon e Number [facility] LABORATORY [address] [place] [address] SERVICES (ABNORMAL) SPEP, INCLUDES QUANTITATION OF MONOCLONAL SPIKE (12/31/2021 13:57 EDT)Only the most recent of3 resultswithin the time period is included. [facility] Albumin % 45.6 (L) 55.8 - 66.1 % [facility] LABORATORY SERVICES Albumin g/dL 2.2 (L) 3.6 - 5.2 [facility] g/dL LABORATORY SERVICES Alpha-1 % 7.2 (H) 2.9 - 4.9 % [facility] LABORATORY SERVICES Alpha-1 g/dL 0.40 0.15 - 0.40 [facility] g/dL LABORATORY SERVICES Alpha-2 % 30.9 (H) 7.1 - 11.8 % [facility] LABORATORY SERVICES Alpha-2 g/dL 1.50 (H) 0.50 - 1.00 [facility] g/dL LABORATORY SERVICES Beta % 11.9 8.4 - 13.1 % [facility] LABORATORY SERVICES Beta g/dL 0.60 0.60 - 1.20 [facility] g/dL LABORATORY SERVICES Gamma % 4.4 (L) 11.1 - 18.8 % [facility] LABORATORY SERVICES Gamma g/dL 0.20 (L) 0.60 - 1.60 [facility] g/dL LABORATORY SERVICES SPEP Comment Immunotyping added by [facility] reflex to evaluate the LABORATORY historical presence of SERVICES monoclonal protein.Abnormal band, previously identified as:Monoclonal IgG [place] immunoglobulin consistent with daratumumab therapy identified on 12/10/21.Comment: See scanned/supplementary report. Total Protein 4.9 (L) 6.3 - 8.2 [facility] g/dL LABORATORY SERVICES Specimen Blood - Venous blood (substance) Narrative This result has an attachment that is no t available. Performing Organization Address [facility] Code Phon e Number [facility] LABORATORY [address] [place] [address] SERVICES (ABNORMAL) NT PRO BNP (12/31/2021 13:57 EDT) Pathologist Sig nature NT-pro BNP 1,400 (H)Comment: The <125 pg/mL [facility] results of this assay LABORATORY SERVICES can be falsely lowered due to consumption of Biotin. Specimen Blood - Venous blood (substance) Performing Organization Address City/[facility] Code Phon e Number [facility] LABORATORY [address] [place] [address] SERVICES (ABNORMAL) LIPID PROFILE (INCLUDES CHOLESTEROL, TRIGLYCERIDES, HDL, LDL) (12/31/2021 13:57 EDT) Cholesterol 384 (H)Comment: <200 mg/dL [facility] Note that CENTER LABORATORY therapeutic goals SERVICES will differ between patients based on cardiac risk factors and current medical therapy. HDL 46Comment: Note >=40 mg/dL [facility] that therapeutic CENTER LABORATORY goals will differ SERVICES between patients based on cardiac risk factors and current medical therapy. LDL, Calculated 279 (H)Comment: <160 mg/dL [facility] Note that CENTER LABORATORY therapeutic goals SERVICES will differ between patients based on cardiac risk factors and current medical therapy. Triglyceride 297 (H)Comment: <=150 mg/dL [facility] Note that CENTER LABORATORY therapeutic goals SERVICES will differ between patients based on cardiac risk factors and current medical therapy. Chol/HDL Ratio 8.3Comment: No See Note [facility] MEDICAL reference range CENTER LABORATORY has been SERVICES established for CHOL/HDL ratio. Non HDL Cholesterol 338 (H)Comment: <160 mg/dL [facility] Note that CENTER LABORATORY therapeutic goals SERVICES will differ between patients based on cardiac risk factors and current medical therapy. Specimen Blood - Venous blood (substance) Performing Organization Address City/[facility] Code Phon e Number [facility] LABORATORY [address] [place] [address] SERVICES (ABNORMAL) URINE MONOCLONAL PROTEIN STUDY (UPEP WITH IMMUNOTYPING), 24 HR (12/17/2021 6:45 EDT) Total Protein, 15,792 (H) <150 [facility] Urine 24 hr mg/24hrs [facility] SERVICES Albumin, Urine % 70.4 N/A % [facility] LABORATORY SERVICES Albumin, Urine 11,118 mg/24hrs [facility] mg/24hrs [facility] SERVICES Globulins, Urine 29.6 N/A % [facility] LABORATORY SERVICES Globulins, Urine 4,674 mg/24hrs [facility] mg/24hrs [facility] SERVICES UPEP Comment See CommentComment: [facility] Electrophoresis CENTER LABORATORY screening performed; SERVICES Immunotyping to follow. See scanned/supplementary report. Urine Volume 2,100 mL [facility] LABORATORY SERVICES Urine Collection 24.5 Hours [facility] LABORATORY SERVICES Immunotyping, Current [facility] Urine Interpretation: CENTER LABORATORY Negative for free SERVICES monoclonal light chains. Reviewed by: Ruben Wang MD 12/20/2021 1415 Total Protein, 752 See Note [facility] Urine Comment: mg/dL [facility] LAB[facility]ATORY NOTE: SERVICES Reference range not established Specimen Urine - 24 hour urine specimen (specimen ) Narrative This result has an attachment that is no t available. Performing Organization Address City/State/ZIP Code Phon e Number [facility] LABORATORY [address] [place] [address] SERVICES PROTEIN, TOTAL, 24 HR, URINE (12/17/2021 6:45 EDT) Specimen Urine - 24 hour urine specimen (specimen ) Performing Organization Address City/[facility]/ZIP Code Phon e Number [facility] LABORATORY [address] [place] [address] SERVICES URINE MONOCLONAL PROTEIN STUDY (UPEP WITH IMMUNOTYPING) PERFORMABLE (11/19/2021 13:17 EDT) Albumin, Urine % 75.9 N/A % [facility] LABORATORY SERVICES Albumin, Urine 1,712 mg/dL [facility] MEDICAL mg/dL [facility] LAB[facility] SERVICES Globulins, Urine 24.1 N/A % [facility] % [facility] LAB[facility] SERVICES Globulins, Urine 544 mg/dL [facility] MEDICAL mg/dL [facility] LAB[facility] SERVICES UPEP Comment See CommentComment: [facility] Electrophoresis CENTER LABORATORY screening performed; SERVICES Immunotyping to follow. See scanned/supplementary report. Immunotyping, Current [facility] Urine Interpretation: CENTER LABORATORY Negative for free SERVICES monoclonal light chains. Reviewed by: Kenji Cuevas MD, PhD 11/22/2021 15:40. Total Protein, 2,256 See Note [facility] Urine Comment: mg/dL [facility] LABORATORY NOTE: SERVICES Reference range has not been established for total protein concentration in random urine specimens. Specimen Urine - Urine (substance) Narrative This result has an attachment that is no t available. Performing Organization Address City/State/ZIP Code Phon e Number [facility] LABORATORY [address] [place] [address] SERVICES PROTEIN, TOTAL, RANDOM, URINE (11/19/2021 13:17 EDT) Specimen Urine - Urine (substance) Performing Organization Address City/State/ZIP Code Phon e Number [facility] LABORATORY [address] [place] [address] SERVICES from Last 3 Months Care Teams Silk Washing Machine Operator Relationship Specialty Start Date End Date Esau Serrano PA-C PCP - General 09/03/21 [address] [place] [address] Saray Nicholson ND Naturopathic Medicine 09/03/[address] [place] [id number]
--- OUTSIDE RECORDS SUMMARY | 2022-01-24 10:47 | XMS_ITS | Encounter Summary ---
:1960 Author Organization [facility] Address [address] [place] [address] Care Team Providers Name Role Phone Esau Serrano PA-C Primary Care Provider [phone] Saray Nicholson ND Unavailable [phone] Encounter Details Date Type Department Care Team Description 01/07/2022 Lab Requisition [facility] Outr Resulting Lab, Pathology & Laboratory Provider [facility] [address] [place] [id number] Social History Tobacco Use Types Packs/Day Years [...] Phlebotomy Only Hematology and Oncology Blood Doctor, [facility] Hem Onc 01/28/2022 Appointment Infusion Therapy 02/04/2022 Phlebotomy Only Hematology and Oncology Blood Doctor, [facility] Hem Onc 02/04/2022 Office Visit Hematology and Oncology Henrik Marquez MD [address] [facility] [address] [place] [address] (Wo rk) 02/04/2022 Appointment Infusion Therapy 02/11/2022 Phlebotomy Only Hematology and Oncology Blood Doctor, [facility] Hem Onc 02/11/2022 Appointment Infusion Therapy 02/18/2022 Phlebotomy Only Hematology and Oncology Blood Doctor, [facility] Hem Onc 02/18/2022 Appointment Infusion Therapy 03/09/2022 Office Visit Hematology and Oncology Dayanna Roman NP 111 [facility] [address] [place] [address] (Wo rk) documented as of this encounter Procedures Procedure Name Priority Date/Time Associated Comments Diagnosis HIV 1/2 ANTIGEN AND Routine 01/07/2022 11:25 Resu lts for this ANTIBODY, 4TH EDT procedure are in GENERATION the results section. documented in this encounter Results HIV 1/2 ANTIGEN AND ANTIBODY, 4TH GENERATION (01/07/2022 11:25 EDT) HIV 1 and 2 NegativeComment: If Negative [facility] Antibody/p24 acute HIV-1 LABORATORY Antigen, 4th infection is SERVICES Generation suspected in a high risk patient, submit plasma specimen for HIV-1 RNA quantitation test. Specimen Blood - Venous blood (substance) Narrative [facility] LABORATORY SERVICES - 01/09/2022 14:07 EDT Fourth Generation assay performed on the Veryan Medicalaur XPT. Performing Organization Address City/State/ZIP Code Phon e Number [facility] LABORATORY [address] [place] [address] SERVICES documented in this encounter Visit Diagnoses Not on filedocumented in this encounter Care Teams Crm Marketing Executive Relationship Specialty Start Date End Date Esau Serrano PA-C PCP - General 09/03/21 [address] [place] [address] Saray Nicholson, JOVAN Naturopathic Medicine 09/03/[address] [place] [id number] documented as of this encounter
--- OUTSIDE RECORDS SUMMARY | 2022-01-24 10:47 | XMS_ITS | Encounter Summary ---
:1960 Author Organization [facility] Address [address] [place] [address] Care Team Providers Name Role Phone Esau Serrano PA-C Primary Care Provider [phone] Saray Nicholson ND Unavailable [phone] Encounter Details Date Type Department Care Team Description 01/11/2022 Orders Only [facility] Cancer Center Kathy Marquez Hematology & Oncology - A, [address] [address] [address], [place] [address] (Wo rk) Social History [...] Phlebotomy Only Hematology and Oncology Blood Doctor, [facility] Hem Onc 01/28/2022 Appointment Infusion Therapy 02/04/2022 Phlebotomy Only Hematology and Oncology Blood Doctor, [facility] Hem Onc 02/04/2022 Office Visit Hematology and Oncology Henrik Marquez MD [address] [phone] (Wo rk) 02/04/2022 Appointment Infusion Therapy 02/11/2022 Phlebotomy Only Hematology and Oncology Blood Doctor, [facility] Hem Onc 02/11/2022 Appointment Infusion Therapy 02/18/2022 Phlebotomy Only Hematology and Oncology Blood Doctor, [facility] Hem Onc 02/18/2022 Appointment Infusion Therapy 03/09/2022 Office Visit Hematology and Oncology Dayanna Roman, KODI [address] [address] (Wo rk) documented as of this encounter Visit Diagnoses Not on filedocumented in this encounter Care Teams Pricing Analyst Relationship Specialty Start Date End Date Esau Serrano PA-C PCP - General 09/03/21 [address] [place] [address] Saray Nicholson ND Naturopathic Medicine 09/03/[address] [place] [id number] documented as of this encounter
--- OUTSIDE RECORDS SUMMARY | 2022-01-24 10:47 | XMS_ITS | Encounter Summary ---
:1960 Author Organization [facility] Address [address] [place] [address] Care Team Providers Name Role Phone Esau Serrano PA-C Primary Care Provider [phone] Saray Nicholson ND Unavailable [phone] Reason for Visit Reason Onset Date Comments Follow-up 01/20/2022 Encounter Details Date Type Department Care Team Description 01/20/2022 Telephone [facility] Cancer Center Hematology Wesley Orozco, [facility] Follow-up & Oncology - Main [facility] [address] [place] [address] Social History Tobacco Use Types [...] Telephone Encounter - Jerod Orozco LICSW - 01/20/2022 0929 EDT LYNETTE HAND Note: Reason for Call: Vice President Sales And Marketing Edward shared that we have received 4 vials of Darzalex for this pt. I responded and clarified that this will cover his tx's for Oct including DOS 01/28, 02/04, 02/11 and 02/18. I then sent the pt a message this update as well. Pt Centered Identified Goal: No insurance, support w/ coverage for Darzalex Plan: I will submit for the Nov infusions around 02/11. Jerod SUE documented in this encounter Plan of Treatment Upcoming Encounters Date Type Specialty Care Team Description 01/28/2022 Phlebotomy Only Hematology and Oncology Blood Doctor, [facility] Hem Onc 01/28/2022 Appointment Infusion Therapy 02/04/2022 Phlebotomy Only Hematology and Oncology Blood Doctor, [facility] Hem Onc 02/04/2022 Office Visit Hematology and Oncology Henrik Marquez MD [address] [phone] (Isabel rk) 02/04/2022 Appointment Infusion Therapy 02/11/2022 Phlebotomy Only Hematology and Oncology Blood Doctor, [facility] Hem Onc 02/11/2022 Appointment Infusion Therapy 02/18/2022 Phlebotomy Only Hematology and Oncology Blood Doctor, [facility] Hem Onc 02/18/2022 Appointment Infusion Therapy 03/09/2022 Office Visit Hematology and Oncology Dayanna Roman, TOUCH UP WORKER 111 [facility] [address] [place] [address] (Wo rk) documented as of this encounter Visit Diagnoses Not on filedocumented in this encounter Care Teams Traffic Operations Manager Relationship Specialty Start Date End Date Esau Serrano PA-C PCP - General 09/03/[address] [place] [phone] Saray Nicholson, JOVAN Naturopathic Medicine 09/03/[address] [place] [address] documented as of this encounter
--- OUTSIDE RECORDS SUMMARY | 2022-01-24 10:47 | XMS_ITS | Encounter Summary ---
:1960 Author Organization [facility] Address [address] [place] [address] Care Team Providers Name Role Phone sEau Serrano PA-C Primary Care Provider [phone] Saray Nicholson ND Unavailable [phone] Reason for Visit Reason Onset Date Comments Follow-up 01/14/2022 Encounter Details Date Type Department Care Team Description 01/14/2022 Telephone [facility] Cancer Center Hematology Wesley Orozco, [facility] Follow-up & Oncology - Main [facility] [address] [place] [address] Social History Tobacco Use Types [...] Telephone Encounter - Jerod Orozco LICSW - 01/14/2022 0851 EDT LYNETTE HAND Note: Reason for Call: I called the [employer] to check on the status of pharmacy request form that is going to cover his treatments for Oct. I was informed it has been approved and the next 4 dosages for Oct will arrive by 01/25. I sent the pt a message with this update. Pt Centered Identified Goal: Financial assistance, no insurance Plan: Pt's tx's for Nov have not been scheduled yet. I plan to check his treatment schedule around 02/11 to send out the next pharmacy request form. Jerod Orozco LINETTE documented in this encounter Plan of Treatment Upcoming Encounters Date Type Specialty Care Team Description 01/28/2022 Phlebotomy Only Hematology and Oncology Blood Doctor, [facility] Hem Onc 01/28/2022 Appointment Infusion Therapy 02/04/2022 Phlebotomy Only Hematology and Oncology Blood Doctor, [facility] Hem Onc 02/04/2022 Office Visit Hematology and Oncology Henrik Marquez MD [address] [phone] (Isabel whyte) 02/04/2022 Appointment Infusion Therapy 02/11/2022 Phlebotomy Only Hematology and Oncology Blood Doctor, [facility] Hem Onc 02/11/2022 Appointment Infusion Therapy 02/18/2022 Phlebotomy Only Hematology and Oncology Blood Doctor, [facility] Hem Onc 02/18/2022 Appointment Infusion Therapy 03/09/2022 Office Visit Hematology and Oncology Dayanna Roman, SWITCHBOARD WIRER [address] [phone] (Isabel whyte) documented as of this encounter Visit Diagnoses Not on filedocumented in this encounter Care Teams Dj Instructor Relationship Specialty Start Date End Date Esau Serrano PA-C PCP - General 09/03/[address] [place] [phone] Saray Nicholson ND Naturopathic Medicine 09/03/[address] [place] [address] documented as of this encounter
--- OUTSIDE RECORDS SUMMARY | 2022-01-24 10:47 | XMS_ITS | Encounter Summary ---
:1960 Author Organization [facility] Address [address] [place] [address] Care Team Providers Name Role Phone Esau Serrano PA-C Primary Care Provider [phone] Saray Nicholson ND Unavailable [phone] Encounter Details Date Type Department Care Team Description 01/07/2022 Lab Requisition [facility] Outr Resulting Lab, Pathology & Laboratory Provider [facility] [address] [id number] Social History Tobacco Use Types Packs/Day Years [...] Phlebotomy Only Hematology and Oncology Blood Doctor, [facility] Hem Onc 01/28/2022 Appointment Infusion Therapy 02/04/2022 Phlebotomy Only Hematology and Oncology Blood Doctor, [facility] Hem Onc 02/04/2022 Office Visit Hematology and Oncology Henrik Marquez MD 111 [facility] 2 [place] [phone] (Wo rk) 02/04/2022 Appointment Infusion Therapy 02/11/2022 Phlebotomy Only Hematology and Oncology Blood Doctor, [facility] Hem Onc 02/11/2022 Appointment Infusion Therapy 02/18/2022 Phlebotomy Only Hematology and Oncology Blood Doctor, [facility] Hem Onc 02/18/2022 Appointment Infusion Therapy 03/09/2022 Office Visit Hematology and Oncology Dayanna Roman NP 111 [facility], [facility] 2 [place] [address] (Wo rk) documented as of this encounter Procedures Procedure Name Priority Date/Time Associated Diagnosis Comme nts CHRONIC HEPATITIS Routine 01/07/2022 11:25 Result s for this PROFILE, UNKNOWN EDT procedure a re in TYPE the results section. documented in this encounter Results CHRONIC HEPATITIS PROFILE, UNKNOWN TYPE (01/07/2022 11:25 EDT) Hep B Surface Ag Negative Negative [facility] Hep B Surface Ab, <3.1 See Note mIU/mL [facility] Quantitative Comment: [facility] Reference Range for Hep B Surface Ab, Quant: SERVICES Positive: >= 10.0 mIU/mL Negative: ??< 10.0 mIU/mL Patient is presumed to not be immune to infection with Hepatitis B Virus. Hep B Surface Ab, Negative See Note [facility] Qualitative Comment: [facility] Reference Range for Hep B Surface Ab, Qual: SERVICES Unvaccinated: ??Negative Vaccinated: ??Positive Hepatitis B Core Negative Negative [facility] Ab, Total [facility] Hep C Antibody Negative Negative [facility] Specimen Blood - Venous blood (substance) Performing Organization Address City/State/ZIP Code Phon e Number [facility] [address] [place] [address] SERVICES documented in this encounter Visit Diagnoses Not on filedocumented in this encounter Care Teams Political Researcher Relationship Specialty Start Date End Date Esau Serrano PA-C PCP - General 09/03/21 [address] [place] [address] Saray Nicholson ND Naturopathic Medicine 09/03/[address] [place] [phone] documented as of this encounter
--- OUTSIDE RECORDS SUMMARY | 2022-01-24 10:47 | XMS_ITS | Encounter Summary ---
:1960 Author Organization [facility] Address [address] [place] [address] Care Team Providers Name Role Phone Esau Serrano PA-C Primary Care Provider [phone] Saray Nicholson ND Unavailable [phone] Encounter Details Date Type Department Care Team Description 01/11/2022 Orders Only [facility] Cancer Center Hematology & Charu Duran RN Oncology - [address] [phone] Social History Tobacco Use Types Packs/Day Years [...] Hematology and Oncology Henrik Marquez MD 111 [facility] 2 [place] [phone] (Wo rk) 02/04/2022 Appointment Infusion Therapy 02/11/2022 Phlebotomy Only Hematology and Oncology Blood Doctor, [facility] Hem Onc 02/11/2022 Appointment Infusion Therapy 02/18/2022 Phlebotomy Only Hematology and Oncology Blood Doctor, [facility] Hem Onc 02/18/2022 Appointment Infusion Therapy 03/09/2022 Office Visit Hematology and Oncology Dayanna Roman NP 111 [facility] 2 [place] [phone] (Wo rk) documented as of this encounter Visit Diagnoses Not on filedocumented in this encounter Care Teams Tumbling Instructor Relationship Specialty Start Date End Date Esau Serrano PA-C PCP - General 09/03/[address] [place] [phone] Saray Nicholson ND Naturopathic Medicine 09/03/[address] [place] [address] documented as of this encounter
--- OUTSIDE RECORDS SUMMARY | 2022-01-24 10:47 | XMS_ITS | Encounter Summary ---
:1960 Author Organization [facility] Address [address] [place] [address] Care Team Providers Name Role Phone Esau Serrano PA-C Primary Care Provider [phone] Saray Nicholson ND Unavailable [phone] Encounter Details Date Type Department Care Team Description 01/21/2022 Phlebotomy Only [facility] Cancer Center Blood Doctor, ANALI torres Hematology & Oncology [facility] Hem Onc ([facility]) (HCC) - Main [place] (Primary Dx) [address] [place] [address] Social History Tobacco Use Types [...] documented as of this encounter Progress Notes Ranjith Oliver MA - 01/21/2022 1300 EDT Venipuncture performed for Elaina Per orders of Elaina Number of attempts 1 left AC OR I was supervised by Elaina who was present and immediately available in the office suite. RANJITH OLIVER MA 01/21/2022 12:48 documented in this encounter Plan of Treatment Upcoming Encounters Date Type Specialty Care Team Description 01/28/2022 Phlebotomy Only Hematology and Oncology Blood Doctor, [facility] Hem Onc 01/28/2022 Appointment Infusion Therapy 02/04/2022 Phlebotomy Only Hematology and Oncology Blood Doctor, [facility] Hem Onc 02/04/2022 Office Visit Hematology and Oncology Henrik Marquez MD 111 [facility], [facility] 2 [place] [phone] (Wo rk) 02/04/2022 Appointment Infusion Therapy 02/11/2022 Phlebotomy Only Hematology and Oncology Blood Doctor, [facility] Hem Onc 02/11/2022 Appointment Infusion Therapy 02/18/2022 Phlebotomy Only Hematology and Oncology Blood Doctor, [facility] Hem Onc 02/18/2022 Appointment Infusion Therapy 03/09/2022 Office Visit Hematology and Oncology Dayanna Roman NP 111 [facility], [facility] 2 [place] [address] (Wo rk) Pending Results Name Type Priority Associated Diagnoses Date/Ti me MONOCLONAL PROTEIN Lab Routine AL amyloidosis (HCC-CM S) 01/21/2022 12:43 EDT MONITORING PANEL, SERUM (HCC) SPEP, INCLUDES Lab Routine AL amyloidosis (HCC-CMS) 0 01/21/2022 12:43 EDT QUANTITATION OF MONOCLONAL (HCC) SPIKE documented as of this encounter Procedures Procedure Name Priority Date/Time Associated Comments Diagnosis COMPREHENSIVE METABOLIC STAT 01/21/2022 12:43 AL amyloidosi s Results for this PANEL (ONCOLOGY USE EDT (HCC-CMS) (HCC) proce dure are in ONLY-INC MG) the results section. SERUM FREE LIGHT CHAINS Routine 01/21/2022 12:43 AL amyloidosi s Results for this EDT ([facility]) ([facility]) procedure ar e in the results section. COMPLETE BLOOD COUNT STAT 01/21/2022 12:43 AL amyloidosis R esults for this AND DIFF, CHEMO EDT ([facility]) ([facility]) procedure are in the results section. IMMUNOGLOBULINS Routine 01/21/2022 12:43 AL amyloidosis Result s for this EDT ([facility]) ([facility]) procedure ar e in the results section. PROTEIN, TOTAL Routine 01/21/2022 12:43 AL amyloidosis EDT ([facility]) ([facility]) documented in this encounter Results (ABNORMAL) IMMUNOGLOBULINS (01/21/2022 12:43 EDT) Pathologist Sig nature IgG 140 (L) 610-1,616 mg/dL [facility] IgA 111 85 - 499 mg/dL [facility] IgM 54 35 - 242 mg/dL [facility] Specimen Blood - Venous blood (substance) Performing Organization Address City/[facility]/ZIP Code Phon e Number [facility] [address] [place] [address] SERVICES SERUM FREE LIGHT CHAINS (01/21/2022 12:43 EDT) Pathologist Sig [facility] [place] Free Lt Chain 1.09 0.33 - 1.94 [facility] mg/dL LABORATORY SERVICES Lambda Free Lt Chain 1.63 0.57 - 2.63 [facility] mg/dL LABORATORY SERVICES [place]/Lambda Ratio 0.67 0.26 - 1.65 [facility] Specimen Blood - Venous blood (substance) Performing Organization Address City/State/ZIP Code Phon e Number [facility] [address] [place] [address] SERVICES PROTEIN, TOTAL (01/21/2022 12:43 EDT) Specimen Blood - Venous blood (substance) Performing Organization Address City/[facility]/ZIP [facility] Phon e Number [facility] [address] [place] [address] SERVICES (ABNORMAL) COMPREHENSIVE METABOLIC PANEL (ONCOLOGY USE ONLY-INC MG) (01/21/2022 12:43 EDT) Pathologist Sig nature Sodium 140 136 - 145 [facility] mmol/L LABORATORY SERVICES Potassium 4.2 3.5 - 5.0 [facility] mmol/L LABORATORY SERVICES Chloride 105 96 - 110 mmol/L [facility] CO2 Total 27 22 - 32 mmol/L [facility] Glucose 150 (H) 70 - 100 mg/dL [facility] BUN 24 10 - 26 mg/dL [facility] Creatinine 1.16 0.66 - 1.25 [facility] mg/dL LABORATORY SERVICES eGFR 72 >60 [facility] mL/min/1.73m2 LABORATORY SERVICES Total Protein 4.9 (L) 6.3 - 8.2 g/dL [facility] Albumin 2.6 (L) 3.4 - 4.9 g/dL [facility] Alkaline Phosphatase 126 38 - 126 U/L [facility] AST 34 15 - 46 U/L [facility] ALT 19 <50 U/L [facility] Bilirubin, Total <0.5 <1.4 mg/dL [facility] Calcium 8.3 (L) 8.5 - 10.5 [facility] mg/dL LABORATORY SERVICES Magnesium 2.0 1.7 - 2.8 mg/dL [facility] Albumin/Globulin 1.1 1.0 - 2.5 [facility] Ratio LABORATORY SERVICES Anion Gap 8 5 - 14 [facility] Specimen Blood - Venous blood (substance) Performing Organization Address City/State/ZIP Code Phon e Number [facility] [address] [place] [address] SERVICES (ABNORMAL) COMPLETE BLOOD COUNT AND DIFF, CHEMO (01/21/2022 12:43 EDT) WBC 17.19 (H) 4.00 - 10.40 [facility] K/m LABORATORY SERVICES RBC 4.52 4.36 - 5.78 [facility] M/[facility] LABORATORY SERVICES Hemoglobin 13.7 (L) 13.8 - 17.3 [facility] gm/dL LABORATORY SERVICES HCT 42.2 39.5 - 50.2 % [facility] MCV 93 81 - 95 fl [facility] MCH 30.3 27.6 - 33.0 pg [facility] MCHC 32.5 (L) 32.8 - 36.4 [facility] gm/dL LABORATORY SERVICES RDW-CV 16.5 (H) <14.2 % [facility] RDW-SD 55.8 (H) <46.0 fl [facility] PLT 500 (H) 141 - 377 K/cmm [facility] MPV 10.2 9.5 - 12.7 fl [facility] Neutrophils 95.2 % [facility] Absolute Neutrophils 16.37 (H) 2.20 - 8.85 [facility] K/cmm LABORATORY SERVICES Type of Differential: Auto [facility] Specimen Blood - Venous blood (substance) Performing Organization Address City/State/ZIP Code Phon e Number [facility] [address] [place] [address] SERVICES documented in this encounter Visit Diagnoses Diagnosis AL amyloidosis (HCC-CMS) (HCC) - Primary Other amyloidosis documented in this encounter Care Teams [place] Boatman Relationship Specialty Start Date End Date Esau Serrano PA-C PCP - General 09/03/21 [address] [place] [address] Saray Nicholson ND Naturopathic Medicine 09/03/[address] [place] [address] documented as of this encounter
--- OUTSIDE RECORDS SUMMARY | 2022-01-24 10:47 | XMS_ITS | Encounter Summary ---
:1960 Author Organization [facility] Address [address] [place] [address] Care Team Providers Name Role Phone Esau Serrano PA-C Primary Care Provider [phone] Saray Nicholson ND Unavailable [phone] Reason for Visit Prior Authorization (See Order Priority) - Authorization Not Required Specialty Diagnoses / Procedures Referred By Contact Refer red To Contact Infusion Therapy 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[facility]) ([facility]) Dayanna Raman, KODI [facility] Adult Infusion 111 [facility] [address], [address] Phone: [phone] Referral ID Status Reason Start Expiration Visits Visits Date Date Requested Authorized [id number] Authorization Specialty 12/24/2021 1 1 Not Required Services Required Encounter Details Date Type Department Care Team Description 12/24/2021 - Hospital Encounter [facility] Cancer Center AL a myloidosis 12/25/2021 Hematology & ([facility]) ([facility]) Oncology - [facility] (Primary Dx) [place] [address] [place] [address] Social History Tobacco Use Types Packs/Day Years [...] Discharge Disposition Disposition Code Departure Means Destination Still a Patient documented in this encounter Plan of Treatment Upcoming Encounters Date Type Specialty Care Team Description 01/28/2022 Phlebotomy Only Hematology and Oncology Blood Doctor, [facility] Hem Onc 01/28/2022 Appointment Infusion Therapy 02/04/2022 Phlebotomy Only Hematology and Oncology Blood Doctor, [facility] Hem Onc 02/04/2022 Office Visit Hematology and Oncology Henrik Marquez MD [address] [phone] (Wo rk) 02/04/2022 Appointment Infusion Therapy 02/11/2022 Phlebotomy Only Hematology and Oncology Blood Doctor, [facility] Hem Onc 02/11/2022 Appointment Infusion Therapy 02/18/2022 Phlebotomy Only Hematology and Oncology Blood Doctor, [facility] Hem Onc 02/18/2022 Appointment Infusion Therapy 03/09/2022 Office Visit Hematology and Oncology Dayanna Roman NP [address] [phone] (Wo rk) documented as of this encounter Visit Diagnoses Diagnosis 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
--- OUTSIDE RECORDS SUMMARY | 2022-01-24 10:47 | XMS_ITS | Encounter Summary ---
:1960 Author Organization [facility] Address [address] [place] [address] Care Team Providers Name Role Phone Esau Serrano PA-C Primary Care Provider [phone] Saray Nicholson ND Unavailable [phone] Reason for Referral Radiology Services (Routine/Next Available) - Receiving Office to Obtain Authorization Specialty Diagnoses / Procedures Referred By Contact Refer red To Contact 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[facility]) (HCC) COVID-19 Henrik Marquez, External Procedures CT CHEST WO CONTRAST [address] [place] [phone] Referral ID Status Reason Start Expiration Visits Visits Date Date Requested Authorized [id number] Receiving Office 01/06/2022 1 1 to Obtain Authorization Encounter Details Date Type Department Care Team Description 01/06/2022 Orders Only [facility] ANALI Marquez myloidosis ([facility]) (HCC) (Primary Dx); Hematology & Oncology Franco Pace COVID-19 - [address] [phone] [address] (Wo rk) Social History Tobacco Use [...] Phlebotomy Only Hematology and Oncology Blood Doctor, [facility] Hem Onc 01/28/2022 Appointment Infusion Therapy 02/04/2022 Phlebotomy Only Hematology and Oncology Blood Doctor, [facility] Hem Onc 02/04/2022 Office Visit Hematology and Oncology Henrik Marquez MD [address] [phone] (Wo rk) 02/04/2022 Appointment Infusion Therapy 02/11/2022 Phlebotomy Only Hematology and Oncology Blood Doctor, [facility] Hem Onc 02/11/2022 Appointment Infusion Therapy 02/18/2022 Phlebotomy Only Hematology and Oncology Blood Doctor, [facility] Hem Onc 02/18/2022 Appointment Infusion Therapy 03/09/2022 Office Visit Hematology and Oncology Dayanna Roman, VENEER DEPARTMENT MANAGER [address] [phone] (Wo rk) Scheduled Orders Name Type Priority Associated Diagnoses Order S chedule CT CHEST WO CONTRAST Imaging Routine AL amyloidosis (HCC- CMS) Expected: 01/06/2022, (HCC) Expires: 07/07/2023 COVID-19 documented as of this encounter Visit Diagnoses Diagnosis 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
--- OUTSIDE RECORDS SUMMARY | 2022-01-24 10:47 | XMS_ITS | Encounter Summary ---
:1960 Author Organization [facility] Address [address] [place] [address] Care Team Providers Name Role Phone Esau Serrano PA-C Primary Care Provider [phone] Saray Nicholson ND Unavailable [phone] Encounter Details Date Type Department Care Team Description 12/24/2021 Orders Only [facility] Cancer Center Kathy Marquez Hematology & Oncology - A, [address] [address] [address], [place], [place] [address] (Wo rk) Social History [...] Hematology and Oncology Henrik Marquez MD [address] [phone] (Wo rk) 02/04/2022 Appointment Infusion Therapy 02/11/2022 Phlebotomy Only Hematology and Oncology Blood Doctor, [facility] Hem Onc 02/11/2022 Appointment Infusion Therapy 02/18/2022 Phlebotomy Only Hematology and Oncology Blood Doctor, [facility] Hem Onc 02/18/2022 Appointment Infusion Therapy 03/09/2022 Office Visit Hematology and Oncology Dayanna Roman, KODI [address] [phone] (Wo rk) documented as of this encounter Visit Diagnoses Not on filedocumented in this encounter Care Teams Monorail Car Operator Relationship Specialty Start Date End Date Esau Serrano PA-C PCP - General 09/03/21 [address] [place] [address] Saray Nicholson ND Naturopathic Medicine 09/03/[address] [place] [address] documented as of this encounter
--- OUTSIDE RECORDS SUMMARY | 2022-01-24 10:48 | XMS_ITS | Encounter Summary ---
:1960 Author Organization Address [address] [place] [address] Care Team Providers Name Role Phone Esau Serrano PA-C Primary Care Provider [phone] Saray Nicholson ND Unavailable [phone] Reason for Visit Reason Onset Date Comments Follow-up 12/15/2021 Encounter Details Date Type Department Care Team Description 12/15/2021 Telephone [facility] Hematology Wesley Orozco, [facility] Follow-up & Oncology - Main [facility] [address] [place] [address] Social History Tobacco Use Types [...] Telephone Encounter - Jerod Orozco LICSW - 12/15/2021 1051 EDT LYNETTE HAND Note: Reason for Call: I called [employer] again to ensure the pt's Darzalex Faspro will get to us on 12/22 to cover his next 5treatments starting on 12/24. I spoke with Corine Nascimento from [employer]. She confirmed that everything is ready to ship and the medication will get to us on 12/22. I sent the pt a message and explained I will continue to update him. Pt Centered Identified Goal: Treatment coverage Plan: I will f/u with the [employer] company on the . Jerod SUE documented in this encounter Plan of Treatment Upcoming Encounters Date Type Specialty Care Team Description 01/28/2022 Phlebotomy Only Hematology and Oncology Blood Doctor, [facility] Hem Onc 01/28/2022 Appointment Infusion Therapy 02/04/2022 Phlebotomy Only Hematology and Oncology Blood Doctor, [facility] Hem Onc 02/04/2022 Office Visit Hematology and Oncology Henrik Marquez MD [address] [phone] (Isabel whyte) 02/04/2022 Appointment Infusion Therapy 02/11/2022 Phlebotomy Only Hematology and Oncology Blood Doctor, [facility] Hem Onc 02/11/2022 Appointment Infusion Therapy 02/18/2022 Phlebotomy Only Hematology and Oncology Blood Doctor, [facility] Hem Onc 02/18/2022 Appointment Infusion Therapy 03/09/2022 Office Visit Hematology and Oncology Dayanna Roman NP [address] [phone] (Wo rk) documented as of this encounter Visit Diagnoses Not on filedocumented in this encounter Care Teams Glueline Worker Relationship Specialty Start Date End Date Esau Serrano PA-C PCP - General 09/03/21 [address] [place] [address] Saray Nicholson, JOVAN Naturopathic Medicine 09/03/[address] [place] [address] documented as of this encounter
--- OUTSIDE RECORDS SUMMARY | 2022-01-24 10:48 | XMS_ITS | Encounter Summary ---
:1960 Author Organization [facility] Address [address] [place] [address] Care Team Providers Name Role Phone Esau Serrano PA-C Primary Care Provider [phone] Saray Nicholson ND Unavailable [phone] Reason for Visit Reason Onset Date Comments Follow-up 11/15/2021 Encounter Details Date Type Department Care Team Description 11/15/2021 Telephone [facility] Hematology Wesley Orozco, [facility] Follow-up & Oncology - Main [facility] [address] [place], [place] [phone] Social History Tobacco Use Types Packs/Day Years [...] condition, No 09/10/2021 does this person have difficulty doing errands alone such as visiting a doctor's office or shopping? Cognitive Status Response Date of Assessment Because of a physical, mental, or emotional condition, No 09/10/2021 does this person have serious difficulty concentrating, remembering, or making decisions? documented as of this encounter Miscellaneous Notes Telephone Encounter - Jerod Orozco LICSW - 11/15/2021 0824 EDT LYNETTE HAND Note: Reason for Call: I called the [facility] to check on the status of them shipping us the Darzalex Faspro. I spoke w/ Leatha today. She explained to me that the pharmacy request form we sent has been received and was approved. She explained that the medication should be shipped today or tomorrow. Leatha sharedthat if I call back tomorrow they should be able to provide a tracking number. I sent the pt a message with this update. Pt Centered Identified Goal: Financial assistance, no insurance Plan: I will f/u with the [employer] again tomorrow. Jerod SUE documented in this encounter Plan of Treatment Upcoming Encounters Date Type Specialty Care Team Description 01/28/2022 Phlebotomy Only Hematology and Oncology Blood Doctor, [facility] Hem Onc 01/28/2022 Appointment Infusion Therapy 02/04/2022 Phlebotomy Only Hematology and Oncology Blood Doctor, [facility] Hem Onc 02/04/2022 Office Visit Hematology and Oncology Henrik Marquez MD [address] [phone] (Isabel rk) 02/04/2022 Appointment Infusion Therapy 02/11/2022 Phlebotomy Only Hematology and Oncology Blood Doctor, [facility] Hem Onc 02/11/2022 Appointment Infusion Therapy 02/18/2022 Phlebotomy Only Hematology and Oncology Blood Doctor, [facility] Hem Onc 02/18/2022 Appointment Infusion Therapy 03/09/2022 Office Visit Hematology and Oncology Dayanna Roman, KODI [address] [phone] (Wo rk) documented as of this encounter Visit Diagnoses Not on filedocumented in this encounter Care Teams Tin Plater Relationship Specialty Start Date End Date Esau Serrano PA-C PCP - General 09/03/21 [address] [place] [address] Saray Nicholson ND Naturopathic Medicine 09/03/[address] [place] [address] documented as of this encounter
--- OUTSIDE RECORDS SUMMARY | 2022-01-24 10:48 | XMS_ITS | Encounter Summary ---
:1960 Author Organization [facility] Address [address] [place] [address] Care Team Providers Name Role Phone Esau Serrano PA-C Primary Care Provider [phone] Saray Nicholson ND Unavailable [phone] Reason for Visit Episode Based Medications (Routine) - Authorization Not Required Specialty Diagnoses / Procedures Referred By Contact Refer red To Contact 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[facility]) ([facility]) Henrik Marquez Ep2 Pat Dotson MD 111 [facility] [address] [place], [place] [address] [place] [address] Phone: Torey [address] [place] [address] Referral ID Status Reason Start Expiration Visits Visits Date Date Requested Authorized [id number] Authorization Not 10/18/2021 04/23/2022 50 5 0 Required Encounter Details Date Type Department Care Team Description 11/09/2021 - Hospital Encounter [facility] Cancer Center Verna suh (Patient) 11/10/2021 Hematology & Oncology - [facility] [address] [place] [address] Social History Tobacco Use Types Packs/Day Years [...] (50,000 mouth every 7 days. unit) capsule prochlorperazine Take 1 Tablet by 30 Tablet 1 11/04/2021 (COMPAZINE) 10 mg tablet mouth every 6 hours as needed for Nausea. Cetirizine 10 mg capsule Take by mouth. 0 12/09/2021 LORazepam (ATIVAN) 0.5 Take 2 Tablets by 30 Tablet 1 202101/11/2022 mg tablet mouth at bedtime as needed for Anxiety. Daily Max: 1 mg montelukast (SINGULAIR) Take one tablet 30 Tablet 0 11/04/2 022 12/08/2021 10 mg tablet orally on the day before, day of, and day after chemotherapy. torsemide (DEMADEX) 5 mg Take 1 Tablet by 30 Tablet 0 11/1612/13/2021 tablet mouth daily. torsemide (DEMADEX) 5 mg Take 1 Tablet by 30 Tablet 0 10/1711/16/2021 tablet mouth daily. documented as of this encounter Discharge Disposition Disposition Code Departure Means Destination Still a Patient documented in this encounter Plan of Treatment Upcoming Encounters Date Type Specialty Care Team Description 01/28/2022 Phlebotomy Only Hematology and Oncology Blood Doctor, [facility] Hem Onc 01/28/2022 Appointment Infusion Therapy 02/04/2022 Phlebotomy Only Hematology and Oncology Blood Doctor, [facility] Hem Onc 02/04/2022 Office Visit Hematology and Oncology Henrik Marquez MD [address] [phone] (Wo rk) 02/04/2022 Appointment Infusion Therapy 02/11/2022 Phlebotomy Only Hematology and Oncology Blood Doctor, [facility] Hem Onc 02/11/2022 Appointment Infusion Therapy 02/18/2022 Phlebotomy Only Hematology and Oncology Blood Doctor, [facility] Hem Onc 02/18/2022 Appointment Infusion Therapy 03/09/2022 Office Visit Hematology and Oncology Dayanan Roman NP [address] [phone] (Wo rk) documented as of this encounter Visit Diagnoses Not on filedocumented in this encounter Care Teams Restoration Silversmith Relationship Specialty Start Date End Date Esau Serrano PA-C PCP - General 09/03/[address] [place] [phone] Saray Nicholson ND Naturopathic Medicine 09/03/[address] [place] [address] documented as of this encounter
--- OUTSIDE RECORDS SUMMARY | 2022-01-24 10:48 | XMS_ITS | Encounter Summary ---
:1960 Author Organization [facility] Address [address] [place] [address] Care Team Providers Name Role Phone Esau Serrano PA-C Primary Care Provider [phone] Saray Nicholson ND Unavailable [phone] Reason for Visit Reason Onset Date Comments Follow-up 12/10/2021 Encounter Details Date Type Department Care Team Description 12/10/2021 Telephone [facility] Cancer Center Hematology Wesley Orozco, [facility] Follow-up & Oncology - Main [facility] [address] [place] [address] Social History Tobacco Use Types [...] Telephone Encounter - Jerod Orozco LICSW - 12/10/2021 0919 EDT LYNETTE HAND Note: Reason for Call: I called the [employer] to check on the pharmacy request form. I spoke with Leatha. She confirmed that they've received the request form for his next 5 txs. They're filling the medications now. They will arrive on 12/22. I will call back on the to get the tracking number. Pt was sent a [employer] message with this update. Pt Centered Identified Goal: Coverage for Darzalex Faspro Plan: F/u with the [facility] on the . Jerod SUE documented in this encounter Plan of Treatment Upcoming Encounters Date Type Specialty Care Team Description 01/28/2022 Phlebotomy Only Hematology and Oncology Blood Doctor, [facility] Hem Onc 01/28/2022 Appointment Infusion Therapy 02/04/2022 Phlebotomy Only Hematology and Oncology Blood Doctor, [facility] Hem Onc 02/04/2022 Office Visit Hematology and Oncology Henrik Marquez MD [address] [phone] (Isabel whyte) 02/04/2022 Appointment Infusion Therapy 02/11/2022 Phlebotomy Only Hematology and Oncology Blood Doctor, [facility] Hem Onc 02/11/2022 Appointment Infusion Therapy 02/18/2022 Phlebotomy Only Hematology and Oncology Blood Doctor, [facility] Hem Onc 02/18/2022 Appointment Infusion Therapy 03/09/2022 Office Visit Hematology and Oncology Dayanna Roman NP [address] [phone] (Isabel whyte) documented as of this encounter Visit Diagnoses Not on filedocumented in this encounter Care Teams Produce Clerk Relationship Specialty Start Date End Date Esau Serrano PA-C PCP - General 09/03/21 [address] [place] [address] Saray Nicholson ND Naturopathic Medicine 09/03/[address] [place] [address] documented as of this encounter
--- OUTSIDE RECORDS SUMMARY | 2022-01-24 10:48 | XMS_ITS | Encounter Summary ---
:1960 Author Organization [facility] Address [address] [place] [address] Care Team Providers Name Role Phone Esau Serrano PA-C Primary Care Provider [phone] Saray Nicholson ND Unavailable [phone] Encounter Details Date Type Department Care Team Description 12/13/2021 Orders Only [facility] Cancer Center Mini Raman NP Hematology & Oncology - [address] [place], [place] [phone] [place] [phone] (Wo rk) Social History Tobacco Use Types [...] Sig Dispensed Refills Start Date End Date torsemide (DEMADEX) 10 mg Take one tablet daily, 60 Tablet 1 12/13/2021 tablet then an additional 10 mg PRN for a 3-5 lb weight gain. documented in this encounter Plan of Treatment Upcoming Encounters Date Type Specialty Care Team Description 01/28/2022 Phlebotomy Only Hematology and Oncology Blood Doctor, [facility] Hem Onc 01/28/2022 Appointment Infusion Therapy 02/04/2022 Phlebotomy Only Hematology and Oncology Blood Doctor, [facility] Hem Onc 02/04/2022 Office Visit Hematology and Oncology Henrik Marquez MD [address] [phone] (Wo rk) 02/04/2022 Appointment Infusion Therapy 02/11/2022 Phlebotomy Only Hematology and Oncology Blood Doctor, [facility] Hem Onc 02/11/2022 Appointment Infusion Therapy 02/18/2022 Phlebotomy Only Hematology and Oncology Blood Doctor, [facility] Hem Onc 02/18/2022 Appointment Infusion Therapy 03/09/2022 Office Visit Hematology and Oncology Dayanna Roman, KODI [address] [phone] (Wo rk) documented as of this encounter Visit Diagnoses Not on filedocumented in this encounter Discontinued Medications Medication Sig Discontinue Reason Start Date End Date torsemide (DEMADEX) 5 mg Take 1 Tablet by 11/16/2021 12/13/2021 tablet mouth daily. documented as of this encounter Care Teams Bobbin Stripper Relationship Specialty Start Date End Date Esau Serrano PA-C PCP - General 09/03/21 [address] [place] [address] Saray Nicholson ND Naturopathic Medicine 09/03/[address] [place] [address] documented as of this encounter
--- OUTSIDE RECORDS SUMMARY | 2022-01-24 10:48 | XMS_ITS | Encounter Summary ---
:1960 Author Organization [facility] Address [address] [place] [address] Care Team Providers Name Role Phone Esau Serrano PA-C Primary Care Provider [phone] Saray Nicholson ND Unavailable [phone] Reason for Visit Reason Comments Chemotherapy Episode Based Medications (Routine) - Authorization Not Required Specialty Diagnoses / Procedures Referred By Contact Refer red To Contact 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[facility] ([facility]) Henrik Marquez Ep2 Pat Dotson MD [phone] [place] [address], [facility] Phone: Shabana Lema [address] [place] [address] Referral ID Status Reason Start Expiration Visits Visits Date Date Requested Authorized [id number] Authorization Not 10/18/2021 04/23/2022 50 5 0 Required Encounter Details Date Type Department Care Team Description 12/17/2021 Hospital Encounter [facility] Cancer [facility] AL a myloidosis Hematology & Oncology (H[facility]) ([facility]) - [facility] (Primary Dx) [address] [place] [address] Social History Tobacco Use Types Packs/Day Years [...] Sign Reading Time Taken Comments Blood Pressure 139/91 12/17/2021 1214 EDT Pulse 102 12/17/2021 1214 EDT Temperature 36.2 ??C (97.1 ??F) 12/17/2021 1214 EDT Respiratory Rate 15 12/17/2021 1214 EDT Oxygen Saturation 97% 12/17/2021 1214 EDT Inhaled Oxygen Concentration - - Weight 115.8 kg (255 lb 4.8 oz) 12/17/2021 1214 EDT Height - - Body Mass Index 35.11 11/04/2021 0908 EDT documented in this encounter [...] Care documented in this encounter Progress Notes Lashon Laws RN - 12/17/2021 1300 EDT Out-patient Chemotherapy Note Patient presents to clinic today for cycle # 2 , day # 1 of Gretel-cyBord treatment plan. Reviewed lab results with patient CBC: Lab Results Component Value Date WBC 14.12 (H) 12/17/2021 HGB 15.4 12/17/2021 HCT 44.3 12/17/2021 PLT 234 12/17/2021 NEUTROABS 13.38 (H) 12/17/2021 Chemistry: Lab Results Component Value Date NA 137 12/17/2021 K 4.4 12/17/2021 BUN 23 12/17/2021 CREATININE 0.86 12/17/2021 CALCIUM 7.5 (L) 12/17/2021 MG 1.9 12/17/2021 LFT: Lab Results Component Value Date TBIL <0.5 12/17/2021 ALKPHOS 111 12/17/2021 AST 35 12/17/2021 ALT 20 12/17/2021 . Parameters for today???s treatment met Patient received pre-meds, Tylenol 650 mg po, Compazine 10 mg po, Benadryl 25 mg po, Cyclophosphamide 725 mg po (see MAR). Pt took 20 mg Dexamethasone po at home this morning. Daratumumab administered SC to RLQ, Velcade administered SC to RUQ. Sites look unremarkable, dressings applied. Patient tolerating chemotherapy treatment at this time with no signs of reaction or side effects. Patient education: Patient verbally educated on all medications administered today. Patient expressed understanding of education provided and no barriers identified Patient and family encouraged to call clinic with any issues. I was supervised by Dr. Cote who was present and immediately available in the office suite. Elizabeth Julardzija, RN documented in this encounter Miscellaneous Notes Addendum Note - Fawad Nicholson - 12/17/2021 1300 EDT Encounter addended by: Fawad Nicholson on: 12/24/2021 7:52 Actions taken: Charge Capture section accepted documented in this encounter Plan of Treatment Upcoming Encounters Date Type Specialty Care Team Description 01/28/2022 Phlebotomy Only Hematology and Oncology Blood Doctor, [facility] Hem Onc 01/28/2022 Appointment Infusion Therapy 02/04/2022 Phlebotomy Only Hematology and Oncology Blood Doctor, [facility] Hem Onc 02/04/2022 Office Visit Hematology and Oncology Henrik Marquez MD [address] [phone] (Wo rk) 02/04/2022 Appointment Infusion Therapy 02/11/2022 Phlebotomy Only Hematology and Oncology Blood Doctor, [facility] Hem Onc 02/11/2022 Appointment Infusion Therapy 02/18/2022 Phlebotomy Only Hematology and Oncology Blood Doctor, [facility] Hem Onc 02/18/2022 Appointment Infusion Therapy 03/09/2022 Office Visit Hematology and Oncology Dayanna Roman NP [address] [phone] (Wo rk) documented as of this encounter Visit Diagnoses Diagnosis 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 2.41 m2 Treatment Plan Recorded BSA), subcutaneous, NOW X1, 1 dose, On Mon12/17/21 at 1430 cyclophosphamide (CYTOXAN) capsule 725 m g Given 12/17/2021 14:22 EDT 725 mg 725 mg (rounded from 723 mg = 300 mg/m2 ? 2.41 m2 Treatment Plan Recorded BSA), oral, NOW X1, 1 dose, On Mon12/17/21 at 1430, Routine iaxeqxkzobs-zswnbotjfantr-NDUF Given 12/17/2021 14:22 1,800 mg Right Lower (DARZALEX FASPRO) subcutaneous EDT Abdomen injection 1,800 mg 1,800 mg, subcutaneous, NOW X1, 1 dose, On Mon12/17/21 at 1500, Routine diphenhydrAMINE (BENADRYL) capsule 25 mg Given 12/17/2021 13:42 EDT 25 mg 25 mg, oral, NOW X1, 1 dose, On Mon12/17/21 at 1400, Routine prochlorperazine (COMPAZINE) tablet 10 m g Given 12/17/2021 13:42 EDT 10 mg 10 mg, oral, NOW X1, 1 dose, On Mon12/17/21 at 1400, Routine documented in this encounter Orders Medications Ordered That Might Not Have Count Last Ord ered Date First Ordered Date Been Administered diphenhydrAMINE (BENADRYL) injection 50 mg 1 12/17 EPINEPHrine (ADRENALIN) injection 0.3 mg 1 022 methylPREDNISolone sod suc(PF) 1 12/17/2021 (SOLU-MEDROL) injection 100 mg Nursing Count Last Ordered Date First Ordered Date INFORMED CONSENT 12/17/2021 Appointment Requests Count Last Ordered Date First Ord ered Date ONCBCN INFUSION APPOINTMENT REQUEST - 12/17/2021 CALCULATED documented in this encounter Care Teams Outside Medical Sales Representative Relationship Specialty Start Date End Date Esau Serrano PA-C PCP - General 09/03/[address] [place] [phone] Saray Nicholson, JOVAN Naturopathic Medicine 09/03/[address] [place] [address] documented as of this encounter
--- OUTSIDE RECORDS SUMMARY | 2022-01-24 10:48 | XMS_ITS | Encounter Summary ---
:1960 Author Organization [facility] Address [address] [place] [address] Care Team Providers Name Role Phone Esau Serrano PA-C Primary Care Provider [phone] Saray Nicholson ND Unavailable [phone] Reason for Visit Reason Onset Date Comments Follow-up 11/12/2021 Encounter Details Date Type Department Care Team Description 11/12/2021 Telephone [facility] Cancer Center Hematology Wesley Orozco, [facility] Follow-up & Oncology - [facility] [address] [place], [place] [phone] Social History Tobacco Use Types Packs/Day Years [...] Telephone Encounter - Jerod Orozco LICSW - 11/12/2021 1010 EDT LYNETTE HAND Note: Reason for Call: [employer] [facility] request form was completed and faxed back to the [facility]. I called the pt and gave him this update. Pt and RN both updated me and pt is choosing to wait until next week to pursue tx. The hope is that [employer] sends us the Darzalex Faspro by to start tx. I called the pt and explained I would f/u on the request form on Mon. I will update the pt where things stand w/ the delivery of the medication. Our financial solutions advisor did clarify that the pt has a 57% award through the [employer]. Pt was confused with what he was awarded when he explained to me yesterday he had 47% assistance and then another 57% rj applied after. I asked our financial solutions advisor to update the pt. Pt Centered Identified Goal: Support w/ [facility] Plan: F/u with [facility] on Mon. Jerod SUE documented in this encounter Plan of Treatment Upcoming Encounters Date Type Specialty Care Team Description 01/28/2022 Phlebotomy Only Hematology and Oncology Blood Doctor, [facility] Hem Onc 01/28/2022 Appointment Infusion Therapy 02/04/2022 Phlebotomy Only Hematology and Oncology Blood Doctor, [facility] Hem Onc 02/04/2022 Office Visit Hematology and Oncology Henrik Marquez MD [address] [phone] (Wo rk) 02/04/2022 Appointment Infusion Therapy 02/11/2022 Phlebotomy Only Hematology and Oncology Blood Doctor, [facility] Hem Onc 02/11/2022 Appointment Infusion Therapy 02/18/2022 Phlebotomy Only Hematology and Oncology Blood Doctor, [facility] Hem Onc 02/18/2022 Appointment Infusion Therapy 03/09/2022 Office Visit Hematology and Oncology Dayanna Roman, CLINICAL APPLICATION SPECIALIST 111 [facility] [address] [place] [phone] (Wo rk) documented as of this encounter Visit Diagnoses Diagnosis AL amyloidosis (HCC-CMS) (HCC) - Primary Other amyloidosis documented in this encounter Orders Appointment Requests Count Last Ordered Date First Ord ered Date ONCBCN INFUSION APPOINTMENT REQUEST - 5 12/17/2021 11/19/2021 CALCULATED documented in this encounter Care Teams Aquatic Centre Manager Relationship Specialty Start Date End Date Esau Serrano PA-C PCP - General 09/03/21 [address] [place] [address] Saray Nicholson, JOVAN Naturopathic Medicine 09/03/[address] [place] [address] documented as of this encounter
--- OUTSIDE RECORDS SUMMARY | 2022-01-24 10:48 | XMS_ITS | Encounter Summary ---
:1960 Author Organization [facility] Address [address] [place] [address] Care Team Providers Name Role Phone Esau Serrano PA-C Primary Care Provider [phone] Saray Nicholson ND Unavailable [phone] Reason for Visit Reason Onset Date Comments Follow-up 11/18/2021 Encounter Details Date Type Department Care Team Description 11/18/2021 Telephone [facility] Cancer Center Hematology Wesley Orozco, [facility] Follow-up & Oncology - Main [facility] [address] [place], [place] [phone] Social History Tobacco Use Types Packs/Day Years [...] Telephone Encounter - Jerod Orozco LICSW - 11/18/2021 0856 EDT LYNETTE HAND Note: Reason for Call: I called the [employer] to check on the pt's Darzalex Faspro being shipped to us. I spoke w/Dottie. She explained that the medication has been shipped and should arrive this morning at 10:30am. She gave me the UPS Tracking number, [id number]. I messaged Lizette Leon in Pharmacy to ask that she let our team know when it's been received so we can plan on tx tomorrow. I sent the pt a message giving him this update. I explained as of right now he's all set for tx tomorrow. Pt Centered Identified Goal: Financial assistance for Darzalex Faspro Plan: Waiting to receive confirmation from Lizette that it's been received. Jerod Orozco [facility] ADDENDUM Ball Winder Edward explained to me and the pts team that 5 vials of Darzalex Faspro have been received. Therefore we have enough of the Darzalex Faspro to cover him until 12/17. We will need another month supply after. I will begin working on the next pharmacy request form around the week of 12/06. Ptwas sent a [employer] message explaining this. documented in this encounter Plan of Treatment Upcoming Encounters Date Type Specialty Care Team Description 01/28/2022 Phlebotomy Only Hematology and Oncology Blood Doctor, [facility] Hem Onc 01/28/2022 Appointment Infusion Therapy 02/04/2022 Phlebotomy Only Hematology and Oncology Blood Doctor, [facility] Hem Onc 02/04/2022 Office Visit Hematology and Oncology Henrik Marquez MD [address] [place] [address] [address] [place] [phone] (Wo rk) 02/04/2022 Appointment Infusion Therapy 02/11/2022 Phlebotomy Only Hematology and Oncology Blood Doctor, [facility] Hem Onc 02/11/2022 Appointment Infusion Therapy 02/18/2022 Phlebotomy Only Hematology and Oncology Blood Doctor, [facility] Hem Onc 02/18/2022 Appointment Infusion Therapy 03/09/2022 Office Visit Hematology and Oncology Dayanna Roman, SWEATBAND CUTTING MACHINE OPERATOR 111 [facility], [address] [place] [phone] (Wo rk) documented as of this encounter Visit Diagnoses Not on filedocumented in this encounter Care Teams Screenplay Writer Relationship Specialty Start Date End Date Esau Serrano PA-C PCP - General 09/03/21 [address] [place] [phone] Saray Nicholson ND Naturopathic Medicine 09/03/[address] [place] [address] documented as of this encounter
--- OUTSIDE RECORDS SUMMARY | 2022-01-24 10:48 | XMS_ITS | Encounter Summary ---
:1960 Author Organization [facility] Address [address] [place] [address] Care Team Providers Name Role Phone Esau Serrano PA-C Primary Care Provider [phone] Saray Nicholson ND Unavailable [phone] Reason for Visit Reason Onset Date Comments Follow-up 11/11/2021 Returning Call 11/12/2021 Encounter Details Date Type Department Care Team Description 11/11/2021 Telephone [facility] Jerod Orozco Follo w-up; Returning Hematology & Oncology - [facility] Call Main [facility] [address], [place] [phone] Social History Tobacco Use Types Packs/Day Years [...] this encounter Miscellaneous Notes Telephone Encounter - ChingDee - 11/12/2021 0819 EDT Patient requesting call back as he needs a ballpark number as to how much injection will be. Patienthas [address]hr [address] and os requesting call back MARCUS elephone Encounter - Jerod Orozco LICSW - 11/11/2021 1551 EDT LYNETTE HAND Note: Reason for Call: I called the pt and explained that we are in the process of submitting the pharmacy request form to the [employer]. I shared that we don't know exactly when it could arrive. Maybe one week, maybe two. I asked the pt if he still wants to move forward w/ tx tomorrow knowing he just has the 57% assistance through the [employer]. Pt explained to me that when he spoke w/ the financial specialist, they told him that he has 47% assistance d/t not being insured. Pt has an additional 57% assistance that would applied after the 47% d/this income. I explained to him that I was not told this nor am I sure what this would look like for assistance w/ his tx. We planned for me to reach back out to the financial specialist for clarification. Pt's other question was for RN Milly. Pt asked me to ask her if he can just receive the steroid tx until the Darzalex Faspro arrives. I sent a message to the RN after our call ended asking her to reach out to him. Pt Centered Identified Goal: Financial assistance-no insurance Plan: F/u with the pt tomorrow around his plan for tx. Jerod SUE documented in this encounter Plan of Treatment Upcoming Encounters Date Type Specialty Care Team Description 01/28/2022 Phlebotomy Only Hematology and Oncology Blood Doctor, [facility] Hem Onc 01/28/2022 Appointment Infusion Therapy 02/04/2022 Phlebotomy Only Hematology and Oncology Blood Doctor, [facility] Hem Onc 02/04/2022 Office Visit Hematology and Oncology Henrik Marquez MD 111 [facility] 2 [place] [phone] (Wo rk) 02/04/2022 Appointment Infusion Therapy 02/11/2022 Phlebotomy Only Hematology and Oncology Blood Doctor, [facility] Hem Onc 02/11/2022 Appointment Infusion Therapy 02/18/2022 Phlebotomy Only Hematology and Oncology Blood Doctor, [facility] Hem Onc 02/18/2022 Appointment Infusion Therapy 03/09/2022 Office Visit Hematology and Oncology Dayanna Roman, KODI 111 [facility] 2 [place] [address] (Wo rk) documented as of this encounter Visit Diagnoses Not on filedocumented in this encounter Care Teams World History Teacher Relationship Specialty Start Date End Date Esau Serrano PA-C PCP - General 09/03/[address] [place] [phone] Saray Nicholson ND Naturopathic Medicine 09/03/[address] [place] [address] documented as of this encounter
--- OUTSIDE RECORDS SUMMARY | 2022-01-24 10:48 | XMS_ITS | Encounter Summary ---
:1960 Author Organization [facility] Address [address] [place] [address] Care Team Providers Name Role Phone Esau Serrano PA-C Primary Care Provider [phone] Saray Nicholson ND Unavailable [phone] Reason for Visit Reason Onset Date Comments COVID Questions 12/24/2021 Encounter Details Date Type Department Care Team Description 12/24/2021 Telephone [facility] Cancer Center Kathy Marquez COVID Questions Hematology & Oncology - A, MD [address] [address] [place], [place] [address] (Wo rk) Social History Tobacco [...] encounter Miscellaneous Notes Telephone Encounter - Jessica Thompson, RN - 12/24/2021 0844 EDT Spoke to patient's spouse and explained we are delaying treatment for a week at this time and Dr. Delaney will re-evaluate next week. Explained Dr. Delaney would like patient to receive MABs and patient agreeable to this. Orders placed and explained someone from [place] [address] will be reaching out to schedule this. elephone Encounter - Sharona Rutherford - 12/24/2021 0808 EDT Patient spouse states patient tested positive for covid this morning and is wondering if patient should come in for infusion. Please advise documented in this encounter Plan of Treatment Upcoming Encounters Date Type Specialty Care Team Description 01/28/2022 Phlebotomy Only Hematology and Oncology Blood Doctor, [facility] Hem Onc 01/28/2022 Appointment Infusion Therapy 02/04/2022 Phlebotomy Only Hematology and Oncology Blood Doctor, [facility] Hem Onc 02/04/2022 Office Visit Hematology and Oncology Henrik Marquez MD [address] [phone] (Wo rk) 02/04/2022 Appointment Infusion Therapy 02/11/2022 Phlebotomy Only Hematology and Oncology Blood Doctor, [facility] Hem Onc 02/11/2022 Appointment Infusion Therapy 02/18/2022 Phlebotomy Only Hematology and Oncology Blood Doctor, [facility] Hem Onc 02/18/2022 Appointment Infusion Therapy 03/09/2022 Office Visit Hematology and Oncology Dayanna Roman, ELECTRONICS MAINTENANCE TECHNICIAN [address] [place] [address] (Wo rk) documented as of this encounter Visit Diagnoses Not on filedocumented in this encounter Care Teams Clinical Rehabilitation Liaison Relationship Specialty Start Date End Date Esau Serrano PA-C PCP - General 09/03/21 [address] [place] [address] Saray Nicholson, JOVAN Naturopathic Medicine 09/03/[address] [place] [address] documented as of this encounter
--- OUTSIDE RECORDS SUMMARY | 2022-01-24 10:48 | XMS_ITS | Encounter Summary ---
:1960 Author Organization [facility] Address [address] [place] [address] Care Team Providers Name Role Phone Esau Serrano PA-C Primary Care Provider [phone] Saray Nicholson ND Unavailable [phone] Reason for Visit Reason Onset Date Comments Follow-up 12/08/2021 Encounter Details Date Type Department Care Team Description 12/08/2021 Telephone [facility] Cancer Center Hematology Wesley Orozco, [facility] Follow-up & Oncology - Main [facility] [address] [place], [place] [phone] Social History Tobacco Use Types Packs/Day Years [...] this encounter Miscellaneous Notes Telephone Encounter - Ernesto LINETTE Newsome - 12/08/2021 0840 EDT LYNETTE HAND Note: Reason for Call: [employer] pharmacy request form for Darzalex Faspro has been sent to the provider and RN to review. We're requesting 1800mg 5 vials for DOS 12/24,12/31,01/07, 01/14, 01/21 with the request that they arrive by 12/22. Pt Centered Identified Goal: Support w/ coverage for tx Plan: Waiting to hear back from the provider and RN. Jerod Chambersemma SUE ADDENDUM 12:00 Request form was verified by team and sent to [employer]. I sent the pt a message w/ this update. I will f/u with the foundation in a few days. documented in this encounter Plan of Treatment Upcoming Encounters Date Type Specialty Care Team Description 01/28/2022 Phlebotomy Only Hematology and Oncology Blood Doctor, [facility] Hem Onc 01/28/2022 Appointment Infusion Therapy 02/04/2022 Phlebotomy Only Hematology and Oncology Blood Doctor, [facility] Hem Onc 02/04/2022 Office Visit Hematology and Oncology Henrik Marquez MD [address] [phone] (Wo rk) 02/04/2022 Appointment Infusion Therapy 02/11/2022 Phlebotomy Only Hematology and Oncology Blood Doctor, [facility] Hem Onc 02/11/2022 Appointment Infusion Therapy 02/18/2022 Phlebotomy Only Hematology and Oncology Blood Doctor, [facility] Hem Onc 02/18/2022 Appointment Infusion Therapy 03/09/2022 Office Visit Hematology and Oncology Dayanna Roman NP [address] [phone] (Wo rk) documented as of this encounter Visit Diagnoses Not on filedocumented in this encounter Care Teams Correspondent Relationship Specialty Start Date End Date Esau Serrano PA-C PCP - General 09/03/21 [address] [place] [address] Saray Nicholson, JOVAN Naturopathic Medicine 09/03/[address] [place] [address] documented as of this encounter
--- OUTSIDE RECORDS SUMMARY | 2022-01-24 10:48 | XMS_ITS | Encounter Summary ---
:1960 Author Organization [facility] Address [address] [place] [address] Care Team Providers Name Role Phone Esau Serrano PA-C Primary Care Provider Saray Nicholson ND Unavailable [phone] Encounter Details Date Type Department Care Team Description 11/19/2021 Documentation Visit [facility] Cancer Center Nathaniel Atkins, Hematology & Oncology - RN Main [place] [address] [place] [phone] Social History Tobacco Use Types Packs/Day Years [...] documented as of this encounter Progress Notes Consuelo Atkins RN - 11/19/2021 8162 EDT Patient Education Topic: Discussed with Kimani and his new chemotherapy regimen Gretel-CyBord. Discussion included the role of the primary nurse, contact information, the logistics of receiving chemotherapy, specific drug information including commonly reported side effects, self-care measures and signs/symptoms to report immediately. A thermometer and supplemental written information will be given to the patient at their first treatment; the latter includes the chemo education binder, Chemotherapy and You, and Eating Hints. Time has demonstrated a readiness to learn asking appropriate questions. No barriers to understanding were identified, except for an expected level of anxiety associated with a large amount of new information. Method: Handout and Verbal Taught to: Family and Patient Barriers: None Outcomes: verbalized understanding VTE-PACC Patient Education Flowsheet completed? Yes VTE education provided? Yes Method of education: Handout VTE-PACC Score: Medium Pt referred to [facility] VTE-PACC? No Barriers to Education: None Who was taught? Family and Patient documented in this encounter Plan of Treatment Upcoming Encounters Date Type Specialty Care Team Description 01/28/2022 Phlebotomy Only Hematology and Oncology Blood Doctor, [facility] Hem Onc 01/28/2022 Appointment Infusion Therapy 02/04/2022 Phlebotomy Only Hematology and Oncology Blood Doctor, [facility] Hem Onc 02/04/2022 Office Visit Hematology and Oncology Henrik Marquez MD [address] [phone] (Isabel whyte) 02/04/2022 Appointment Infusion Therapy 02/11/2022 Phlebotomy Only Hematology and Oncology Blood Doctor, [facility] Hem Onc 02/11/2022 Appointment Infusion Therapy 02/18/2022 Phlebotomy Only Hematology and Oncology Blood Doctor, [facility] Hem Onc 02/18/2022 Appointment Infusion Therapy 03/09/2022 Office Visit Hematology and Oncology Dayanna Roman NP 111 [facility] 2 [place] [phone] (Wo rk) documented as of this encounter Visit Diagnoses Not on filedocumented in this encounter Care Teams Home Appliances Mechanic Relationship Specialty Start Date End Date Esau Serrano PA-C PCP - General 09/03/21 [address] [place] [address] Saray Nicholson ND Naturopathic Medicine 09/03/[address] [place] [address] documented as of this encounter
--- OUTSIDE RECORDS SUMMARY | 2022-01-24 10:48 | XMS_ITS | Encounter Summary ---
:1960 Author Organization [facility] Address [address] [place] [address] Care Team Providers Name Role Phone Esau Serrano PA-C Primary Care Provider [phone] Saray Nicholson ND Unavailable [phone] Encounter Details Date Type Department Care Team Description 12/03/2021 Phlebotomy Only [facility] ED Center 2 Civil Engineering Design Draftsperson, Acc [place] radha loidosis Phlebotomy Phlebotomy ([facility]) ([facility]) [address] [place], [place] [phone] Social History Tobacco Use Types Packs/Day Years [...] Phlebotomy Only Hematology and Oncology Blood Doctor, [facility] Hem Onc 01/28/2022 Appointment Infusion Therapy 02/04/2022 Phlebotomy Only Hematology and Oncology Blood Doctor, [facility] Hem Onc 02/04/2022 Office Visit Hematology and Oncology Henrik Marquez MD 111 [facility] 2 [place] [phone] (Wo rk) 02/04/2022 Appointment Infusion Therapy 02/11/2022 Phlebotomy Only Hematology and Oncology Blood Doctor, [facility] Hem Onc 02/11/2022 Appointment Infusion Therapy 02/18/2022 Phlebotomy Only Hematology and Oncology Blood Doctor, [facility] Hem Onc 02/18/2022 Appointment Infusion Therapy 03/09/2022 Office Visit Hematology and Oncology Dayanna Roman NP 111 [facility] 2 [place] [address] (Wo rk) documented as of this encounter Procedures Procedure Name Priority Date/Time Associated Comments Diagnosis COMPREHENSIVE STAT 12/03/2021 13:06 [place] amyloidosis Results for this METABOLIC PANEL EDT ([facility]) ([facility]) procedure are in (ONCOLOGY USE ONLY-INC the r esults MG) section. COMPLETE BLOOD COUNT STAT 12/03/2021 13:06 [place] amyloidosis R esults for this AND DIFF, CHEMO EDT ([facility]) ([facility]) procedure are in the results section. documented in this encounter Results (ABNORMAL) COMPREHENSIVE METABOLIC PANEL (ONCOLOGY USE ONLY-INC MG) (12/03/2021 13:06 EDT) Pathologist Sig nature Sodium 135 (L) 136 - 145 [facility] mmol/L LABORATORY SERVICES Potassium 4.4 3.5 - 5.0 [facility] mmol/L LABORATORY SERVICES Chloride 104 96 - 110 mmol/L [facility] CO2 Total 23 22 - 32 mmol/L [facility] Glucose 147 (H) 70 - 100 mg/dL [facility] BUN 21 10 - 26 mg/dL [facility] Creatinine 0.89 0.66 - 1.25 [facility] mg/dL LABORATORY SERVICES eGFR 98 >60 [facility] mL/min/1.73m2 LABORATORY SERVICES Total Protein 4.6 (L) 6.3 - 8.2 g/dL [facility] Albumin 2.3 (L) 3.4 - 4.9 g/dL [facility] Alkaline Phosphatase 161 (H) 38 - 126 U/L [facility] AST 33 15 - 46 U/L [facility] ALT 22 <50 U/L [facility] Bilirubin, Total <0.5 <1.4 mg/dL [facility] Calcium 7.4 (L) 8.5 - 10.5 [facility] mg/dL LABOR[facility]ORY SERVICES Magnesium 1.9 1.7 - 2.8 mg/dL [facility] SERVICES Albumin/Globulin 1.0 1.0 - 2.5 [facility] Ratio LABORATORY SERVICES Anion Gap 8 5 - 14 [facility] SERVICES Specimen Blood - Venous blood (substance) Performing Organization Address City/State/ZIP Code Phon e Number [facility] LABOR[facility]ORY [address] [place] [address] SERVICES (ABNORMAL) COMPLETE BLOOD COUNT AND DIFF, CHEMO (12/03/2021 13:06 EDT) WBC 10.19 4.00 - 10.40 [facility] LABORATORY SERVICES RBC 5.11 4.36 - 5.78 [facility] M/[facility] LABORATORY SERVICES Hemoglobin 15.7 13.8 - 17.3 [facility] gm/dL LABORATORY SERVICES HCT 45.4 39.5 - 50.2 % [facility] SERVICES MCV 89 81 - 95 fl [facility] SERVICES MCH 30.7 27.6 - 33.0 pg [facility] SERVICES MCHC 34.6 32.8 - 36.4 [facility] gm/dL LABORATORY SERVICES RDW-CV 14.6 (H) <14.2 % [facility] LABOR[facility]ORY SERVICES RDW-SD 46.3 (H) <46.0 fl [facility] LABOR[facility]ORY SERVICES PLT 256 141 - 377 /m [facility] SERVICES MPV 10.9 9.5 - 12.7 fl [facility] SERVICES Neutrophils 95.6 % [facility] SERVICES Absolute Neutrophils 9.75 (H) 2.20 - 8.85 [facility] K/cmm LABORATORY SERVICES Type of Differential: Auto [facility] SERVICES Specimen Blood - Venous blood (substance) Performing Organization Address City/State/ZIP Code Phon e Number [facility] [address] [place] [address] SERVICES documented in this encounter Visit Diagnoses Diagnosis [place]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
--- OUTSIDE RECORDS SUMMARY | 2022-01-24 10:48 | XMS_ITS | Encounter Summary ---
:1960 Author Organization [facility] Address [address] [place] [address] Care Team Providers Name Role Phone Esau Serrano PA-C Primary Care Provider [phone] Saray Nicholson ND Unavailable [phone] Reason for Visit Reason Onset Date Comments Follow-up 11/16/2021 Encounter Details Date Type Department Care Team Description 11/16/2021 Telephone [facility] Cancer Center Hematology Wesley Orozco, [facility] Follow-up & Oncology - Main [facility] [address] [place], [place] [phone] Social History Tobacco Use Types Packs/Day Years [...] Telephone Encounter - Jerod Orozco LICSW - 11/16/2021 0912 EDT LYNETTE HAND Note: Reason for Call: I called the [employer] again to check on the status of them mailing us the Darzalex Faspro.Today they told me a different process than what I was told yesterday. Today they report that the medication won't be shipped to us until . They're unable to say if the medication will reach us byFri when the pt is scheduled for tx. I will need to call back on for another update. I've let the pt and our team know where things stand w/ the medication delivery. Pt Centered Identified Goal: Financial assistance, no insurance Plan: F/u with the [employer] again on . Jerod SUE documented in this encounter Plan of Treatment Upcoming Encounters Date Type Specialty Care Team Description 01/28/2022 Phlebotomy Only Hematology and Oncology Blood Doctor, [facility] Hem Onc 01/28/2022 Appointment Infusion Therapy 02/04/2022 Phlebotomy Only Hematology and Oncology Blood Doctor, [facility] Hem Onc 02/04/2022 Office Visit Hematology and Oncology Henrik Marquez MD [address] [phone] (Wo rk) 02/04/2022 Appointment Infusion Therapy 02/11/2022 Phlebotomy Only Hematology and Oncology Blood Doctor, [facility] Hem Onc 02/11/2022 Appointment Infusion Therapy 02/18/2022 Phlebotomy Only Hematology and Oncology Blood Doctor, [facility] Hem Onc 02/18/2022 Appointment Infusion Therapy 03/09/2022 Office Visit Hematology and Oncology Dayanna Roman NP [address] [phone] (Wo rk) documented as of this encounter Visit Diagnoses Not on filedocumented in this encounter Care Teams Angle Bender Relationship Specialty Start Date End Date Esau Serrano PA-C PCP - General 09/03/21 [address] [place] [address] Saray Nicholson ND Naturopathic Medicine 09/03/[address] [place] [address] documented as of this encounter
--- OUTSIDE RECORDS SUMMARY | 2022-01-24 10:48 | XMS_ITS | Encounter Summary ---
:1960 Author Organization [facility] Address [address] [place] [address] Care Team Providers Name Role Phone Esau Serrano PA-C Primary Care Provider [phone] Saray Nicholson ND Unavailable Reason for Visit Reason Comments Other Encounter Details Date Type Department Care Team Description 12/08/2021 Refill [facility] Cancer Center Hematology Shadi Dayanna sosa NP Other & Oncology - [facility] [address] [address] [place] [phone] (Wo rk) Social History [...] Sig Dispensed Refills Start Date End Date montelukast (SINGULAIR) TAKE 1 TABLET BY MOUTH 30 Tablet 0 12/08/2021 10 mg tablet ON THE DAY BEFORE, DAY OF AND DAY AFTER CHEMOTHERAPY documented in this encounter Plan of Treatment Upcoming Encounters Date Type Specialty Care Team Description 01/28/2022 Phlebotomy Only Hematology and Oncology Blood Doctor, [facility] Hem Onc 01/28/2022 Appointment Infusion Therapy 02/04/2022 Phlebotomy Only Hematology and Oncology Blood Doctor, [facility] Hem Onc 02/04/2022 Office Visit Hematology and Oncology Henrik Marquez MD [address] [phone] (Wo rk) 02/04/2022 Appointment Infusion Therapy 02/11/2022 Phlebotomy Only Hematology and Oncology Blood Doctor, [facility] Hem Onc 02/11/2022 Appointment Infusion Therapy 02/18/2022 Phlebotomy Only Hematology and Oncology Blood Doctor, [facility] Hem Onc 02/18/2022 Appointment Infusion Therapy 03/09/2022 Office Visit Hematology and Oncology Dayanna Roman, KODI [address] [phone] (Wo rk) documented as of this encounter Visit Diagnoses Not on filedocumented in this encounter Discontinued Medications Medication Sig Discontinue Reason Start Date End Date montelukast (SINGULAIR) Take one tablet 11/04/2021 0 12/08/2021 10 mg tablet orally on the day before, day of, and day after chemotherapy. documented as of this encounter Care Teams Wastewater Engineer Relationship Specialty Start Date End Date Esau Serrano PA-C PCP - General 09/03/[address] [place] [phone] Saray Nicholson, JOVAN Naturopathic Medicine 09/03/[address] [place] [address] documented as of this encounter
--- OUTSIDE RECORDS SUMMARY | 2022-01-24 10:48 | XMS_ITS | Encounter Summary ---
:1960 Author Organization [facility] Address [address] [place] [address] Care Team Providers Name Role Phone Esau Serrano PA-C Primary Care Provider [phone] Saray Nicholson ND Unavailable [phone] Reason for Referral Prior Authorization (See Order Priority) - Authorization Not Required Specialty Diagnoses / Procedures Referred By Contact Refer red To Contact Infusion Therapy 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[facility]) ([facility]) Dayanna Raman, KODI [facility] Adult Infusion 111 [facility] 4 [facility], [address], [address] [place], [place] [address] [place] [address] Phone: [phone] Referral ID Status Reason Start Expiration Visits Visits Date Date Requested Authorized [id number] Authorization Specialty 12/24/2021 1 1 Not Required Services Required Question Answer Is this appt for transfusion, medication, test or Infu fredy injection? How many infusions need to be ordered for appt? 1 Infusion Name COVID-19 Monoclonal Antibody Infusion Dose as ordered What is the infusion frequency? once Is this the first dose of infusion(s)? Yes Have orders been place for this appt? (i.e.: Blood Yes Transfusion Order Set, Therapy Plan, Lab Orders, Supportive Plan, Etc) Encounter Details Date Type Department Care Team Description 12/24/2021 Prep for Procedure [facility] ANALI Thompson myloidosis Hematology & JACKIE Lopez ([facility]) (HCC) Oncology - [facility] (Primary Dx) [place] [address] [place] [id number] Social History Tobacco Use Types Packs/Day [...] making decisions? documented as of this encounter H&P Notes Jessica Thompson RN - 12/24/2021 0842 EDT MABs orders pended to Dayanna Raman to sign. documented in this encounter Plan of Treatment Upcoming Encounters Date Type Specialty Care Team Description 01/28/2022 Phlebotomy Only Hematology and Oncology Blood Doctor, [facility] Hem Onc 01/28/2022 Appointment Infusion Therapy 02/04/2022 Phlebotomy Only Hematology and Oncology Blood Doctor, [facility] Hem Onc 02/04/2022 Office Visit Hematology and Oncology Henrik Marquez MD 111 [facility] venue [facility], [facility], Level 2 [place] [phone] (Wo rk) 02/04/2022 Appointment Infusion Therapy 02/11/2022 Phlebotomy Only Hematology and Oncology Blood Doctor, [facility] Hem Onc 02/11/2022 Appointment Infusion Therapy 02/18/2022 Phlebotomy Only Hematology and Oncology Blood Doctor, [facility] Hem Onc 02/18/2022 Appointment Infusion Therapy 03/09/2022 Office Visit Hematology and Oncology Dayanna Roman, SAFEKEEPING CLERK 111 [facility], [facility], Level 2 [place] [address] (Wo rk) Scheduled Referrals Name Type Priority Associated Order Schedule Diagnoses AMB CONS/FOLLOW Outpatient Routine/Next AL amyloidosis Expected: UP SHEP 4 Referral Available ([facility]) ([facility]) 12/24/2021 INFUSIONS ([facility] (Approximat e), ONLY) Expires: 12/24/2022 documented as of this encounter Visit Diagnoses Diagnosis AL amyloidosis ([facility]) ([facility]) - Primary Other amyloidosis documented in this encounter Care Teams Medical Appointment Clerk Relationship Specialty Start Date End Date Esau Serrano PA-C PCP - General 09/03/21 [address] [place] [address] Saray Nicholson ND Naturopathic Medicine 09/03/[address] [place] [address] documented as of this encounter
--- OUTSIDE RECORDS SUMMARY | 2022-01-24 10:48 | XMS_ITS | Encounter Summary ---
:[address] [facility] Address [address] [place] [address] Care Team Providers Name Role Phone Esau Serrano PA-C Primary Care Provider [phone] Saray Nicholson ND Unavailable [phone] Reason for Visit Reason Comments Chemotherapy Episode Based Medications (Routine) - Authorization Not Required Specialty Diagnoses / Procedures Referred By Contact Refer red To Contact 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[facility] ([facility]) Henrik Marquez Ep2 Pat Dotson MD [id number] [place] [address], [facility] Phone: Shabana Lema [address] [place] [address] Referral ID Status Reason Start Expiration Visits Visits Date Date Requested Authorized [id number] Authorization Not 10/18/2021 04/23/2022 50 5 0 Required Encounter Details Date Type Department Care Team Description 12/03/2021 Hospital Encounter [facility] Cancer Center AL a myloidosis Hematology & Oncology (HCC-C [facility]) ([facility]) - [facility] (Primary Dx) [address] [place] [address] Social History Tobacco Use Types Packs/Day Years [...] Sign Reading Time Taken Comments Blood Pressure 133/81 12/03/2021 1413 EDT Pulse 103 12/03/2021 1413 EDT Temperature 36.1 ??C (96.9 ??F) 12/03/2021 1413 EDT Respiratory Rate 16 12/03/2021 1413 EDT Oxygen Saturation 96% 12/03/2021 1413 EDT Inhaled Oxygen Concentration - - Weight 113.9 kg (251 lb) 12/03/2021 1413 EDT Height - - Body Mass Index 34.52 11/04/2021 0908 EDT documented in this encounter [...] (SINGULAIR) Take one tablet 30 Tablet 0 022 12/08/2021 10 mg tablet orally on the day before, day of, and day after chemotherapy. torsemide (DEMADEX) 5 mg Take 1 Tablet by 30 Tablet 0 11/1612/13/2021 tablet mouth daily. 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 Pt. presents with rash on chest and back which does not itch. Dr. Delaney aware and recommended cortisone cream. Reviewed lab results with patient CBC: Lab Results Component Value Date WBC 10.19 12/03/2021 HGB 15.7 12/03/2021 HCT 45.4 12/03/2021 PLT 256 12/03/2021 NEUTROABS 9.75 (H) 12/03/2021 Chemistry: Lab Results Component Value Date NA 135 (L) 12/03/2021 K 4.4 12/03/2021 BUN 21 12/03/2021 CREATININE 0.89 12/03/2021 CALCIUM 7.4 (L) 12/03/2021 MG 1.9 12/03/2021 LFT: Lab Results Component Value Date TBIL <0.5 12/03/2021 ALKPHOS 161 (H) 12/03/2021 AST 33 12/03/2021 ALT 22 12/03/2021 Parameters for today???s treatment met. Patient received pre-meds, Benadryl PO, Compazine, and Tylenol (see MAR) Bortezomib subcutaneously to RUQ. Dmgcgohhoor-hnyqtnmdlhlmv-GGDM subcutaneously to RLQ. Bandaid applied to both sites. Cytoxan 725 mg PO Patient tolerating chemotherapy treatment at this time with no signs of reaction or side effects Patient education: Patient educated on all medications administered today. Patient expressed understanding of education provided and no barriers identified Patient and family encouraged to call clinic with any issues. I was supervised by Dr. Hurley who was present and immediately available in the office suite. VIVIANA CAMARA RN 12/03/2021 17:42 documented in this encounter Miscellaneous Notes Addendum Note - Fawad Nicholson - 12/03/2021 1430 EDT Encounter addended by: Fawad Nicholson on: 12/24/2021 7:51 Actions taken: Charge Capture section accepted documented in this encounter Plan of Treatment Upcoming Encounters Date Type Specialty Care Team Description 01/28/2022 Phlebotomy Only Hematology and Oncology Blood Doctor, [facility] Hem Onc 01/28/2022 Appointment Infusion Therapy 02/04/2022 Phlebotomy Only Hematology and Oncology Blood Doctor, [facility] Hem Onc 02/04/2022 Office Visit Hematology and Oncology Henrik Marquez MD [address] [phone] (Wo rk) 02/04/2022 Appointment Infusion Therapy 02/11/2022 Phlebotomy Only Hematology and Oncology Blood Doctor, [facility] Hem Onc 02/11/2022 Appointment Infusion Therapy 02/18/2022 Phlebotomy Only Hematology and Oncology Blood Doctor, [facility] Hem Onc 02/18/2022 Appointment Infusion Therapy 03/09/2022 Office Visit Hematology and Oncology Dayanna Roman NP [address] [phone] (Wo rk) documented as of this encounter Visit Diagnoses Diagnosis AL amyloidosis (HCC-CMS) (HCC) - Primary Other amyloidosis documented in this encounter Administered Medications Inactive Administered Medications - up to 3 most recent administrations Medication Order MAR Action Action Date Dose Rate Site acetaminophen (TYLENOL) tablet 650 Given 12/03/2021 14:31 EDT 65 0 mg mg 650 mg, oral, NOW X1, 1 dose, On Mon12/03/21 at 1445, Routine bortezomib (VELCADE) chemo Given 12/03/2021 15:05 EDT 3.13 mg Right Upper Abdomen syringe 3.13 mg 3.13 mg (rounded from 3.133 mg = 1.3 mg/m2 ? 2.41 m2 Treatment Plan Recorded BSA), subcutaneous, NOW X1, 1 dose, On Mon12/03/21 at 1515 cyclophosphamide (CYTOXAN) capsule 725 m g Given 12/03/2021 15:17 EDT 725 mg 725 mg (rounded from 723 mg = 300 mg/m2 ? 2.41 m2 Treatment Plan Recorded BSA), oral, NOW X1, 1 dose, On Mon12/03/21 at 1515, STAT xabpefkkagl-kfxwvgvcwppvs-TRCV Given 12/03/2021 15:10 1,800 mg Right Lower (DARZALEX FASPRO) subcutaneous EDT Abdomen injection 1,800 mg 1,800 mg, subcutaneous, NOW X1, 1 dose, On Mon12/03/21 at 1545, Routine diphenhydrAMINE (BENADRYL) capsule 50 mg Given 12/03/2021 14:31 EDT 50 mg 50 mg, oral, NOW X1, 1 dose, On Mon12/03/21 at 1445, Routine prochlorperazine (COMPAZINE) tablet 10 m g Given 12/03/2021 14:31 EDT 10 mg 10 mg, oral, NOW X1, 1 dose, On Mon12/03/21 at 1445, Routine documented in this encounter Orders Medications Ordered That Might Not Have Count Last Ord ered Date First Ordered Date Been Administered tztoaxcgniy-vyogihapjnabx-CONN (DARZALEX 1 FASPRO) subcutaneous injection 1,800 mg diphenhydrAMINE (BENADRYL) 50 mg in sodium 1 12/03 chloride (NS) 0.9 % 50 mL IVPB diphenhydrAMINE (BENADRYL) injection 50 mg 1 12/03 EPINEPHrine (ADRENALIN) injection 0.3 mg 1 methylPREDNISolone sod suc(PF) 1 12/03/2021 (SOLU-MEDROL) injection 100 mg Appointment Requests Count Last Ordered Date First Ord ered Date ONCBCN INFUSION APPOINTMENT REQUEST - 1 12/03/2021 CALCULATED documented in this encounter Care Teams Tail Trimmer Relationship Specialty Start Date End Date Esau Serrano PA-C PCP - General 09/03/21 [address] [place] [address] Saray Nicholson ND Naturopathic Medicine 09/03/[address] [place] [address] documented as of this encounter
--- OUTSIDE RECORDS SUMMARY | 2022-01-24 10:48 | XMS_ITS | Encounter Summary ---
:1960 Author Organization [facility] Address [address] [place] [address] Care Team Providers Name Role Phone Esau Serrano PA-C Primary Care Provider [phone] Saray Nicholson ND Unavailable [phone] Reason for Visit Reason Comments Chemotherapy Episode Based Medications (Routine) - Authorization Not Required Specialty Diagnoses / Procedures Referred By Contact Refer red To Contact 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[facility]) ([facility]) Henrik Marquez Ep2 Pat Dotson MD [id number] [place] [address], [facility] Phone: Shabana Lema 2 [place] [address] Referral ID Status Reason Start Expiration Visits Visits Date Date Requested Authorized [id number] Authorization Not 10/18/2021 04/23/2022 50 5 0 Required Encounter Details Date Type Department Care Team Description 11/19/2021 Hospital Encounter [facility] Cancer Center AL a myloidosis Hematology & Oncology (HCC-C [place]) ([facility]) - [facility] (Primary Dx) [address] [place] [address] Social History Tobacco Use Types Packs/Day Years [...] Sign Reading Time Taken Comments Blood Pressure 134/88 11/19/2021 1320 EDT Pulse 106 11/19/2021 1320 EDT Temperature 36.1 ??C (97 ??F) 11/19/2021 1320 EDT Respiratory Rate 16 11/19/2021 1320 EDT Oxygen Saturation 97% 11/19/2021 1320 EDT Inhaled Oxygen Concentration - - Weight 110.7 kg (244 lb) 11/19/2021 1320 EDT Height - - Body Mass Index 33.56 11/04/2021 0908 EDT documented in this encounter [...] (SINGULAIR) Take one tablet 30 Tablet 0 11/04/ 022 12/08/2021 10 mg tablet orally on the day before, day of, and day after chemotherapy. torsemide (DEMADEX) 5 mg Take 1 Tablet by 30 Tablet 0 11/1612/13/2021 tablet mouth daily. 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 Tushar Atkins RN came to chairside for teach and binder. Reviewed lab results with patient CBC: Lab Results Component Value Date WBC 16.03 (H) 11/19/2021 HGB 16.8 11/19/2021 HCT 49.8 11/19/2021 PLT 391 (H) 11/19/2021 NEUTROABS 14.62 (H) 11/19/2021 Chemistry: Lab Results Component Value Date NA 136 11/19/2021 K 4.2 11/19/2021 BUN 22 11/19/2021 CREATININE 0.94 11/19/2021 CALCIUM 8.0 (L) 11/19/2021 MG 2.0 11/19/2021 LFT: Lab Results Component Value Date TBIL 0.5 11/19/2021 ALKPHOS 112 11/19/2021 AST 44 11/19/2021 ALT 29 11/19/2021 Parameters for today???s treatment met. Patient received pre-meds, Tylenol po, Benadryl IV, Compazine po (see MAR). He took Decadron and Singulair at home this morning. Bortezomib subcutaneously to right upper quadrant. Dressing applied. Daratumumab subcutaneously to right lower quadrant. Dressing applied. Pt. took Cyclophosamide 750 mg PO. Patient tolerating chemotherapy treatment at this time with no signs of reaction or side effects There was a one hour observation period after treatment. Patient education: Patient educated on all medications administered today. Patient expressed understanding of education provided and no barriers identified Patient and family encouraged to call clinic with any issues. I was supervised by Dr. Moon who was present and immediately available in the office suite. VIVIANA CAMARA RN 11/19/2021 15:07 documented in this encounter Miscellaneous Notes Addendum Note - Melina Chavira - 11/19/2021 1400 EDT Encounter addended by: Melina Chavira on: 11/23/2021 12:13 Actions taken: Charge Capture section accepted documented [...] and Oncology Henrik Marquez MD [address] [phone] (Wo rk) 02/04/2022 Appointment Infusion Therapy 02/11/2022 Phlebotomy Only Hematology and Oncology Blood Doctor, [facility] Hem Onc 02/11/2022 Appointment Infusion Therapy 02/18/2022 Phlebotomy Only Hematology and Oncology Blood Doctor, [facility] Hem Onc 02/18/2022 Appointment Infusion Therapy 03/09/2022 Office Visit Hematology and Oncology Dayanna Roman, KODI [address] [phone] (Wo rk) documented as of this encounter Visit Diagnoses Diagnosis AL amyloidosis (HCC-CMS) (HCC) - Primary Other amyloidosis documented in this encounter Administered Medications Inactive Administered Medications - up to 3 most recent administrations Medication Order MAR Action Action Date Dose Rate Site acetaminophen (TYLENOL) tablet 650 Given 11/19/2021 14:56 EDT 65 0 mg mg 650 mg, oral, NOW X1, 1 dose, On Mon11/19/21 at 1445, Routine bortezomib (VELCADE) chemo syringe 3.13 mg Given 11/19/2021 15:46 EDT 3.13 mg 3.13 mg (rounded from 3.133 mg = 1.3 mg/ m2 ? 2.41 m2 Treatment Plan Recorded BSA), subcutaneous, NOW X1, 1 dose, On Mon11/19/21 at 1515 cyclophosphamide (CYTOXAN) capsule 725 m g Given 11/19/2021 16:13 EDT 725 mg 725 mg (rounded from 723 mg = 300 mg/m2 ? 2.41 m2 Treatment Plan Recorded BSA), oral, NOW X1, 1 dose, On Mon11/19/21 at 1515, STAT ocockopzovb-rrqvvcedqjqyq-UASD (DARZALEX Given 11/19/2021 15:55 EDT 1,800 mg FASPRO) subcutaneous injection 1,800 mg 1,800 mg, subcutaneous, NOW X1, 1 dose, On Mon11/19/21 at 1545, Routine diphenhydrAMINE (BENADRYL) 50 mg in sodium New Bag 11/19/2021 14:5 7 EDT 50 mg chloride (NS) 0.9 % 50 mL IVPB 50 mg, intravenous, NOW X1, 1 dose, On Mon11/19/21 at 1445, Routine prochlorperazine (COMPAZINE) tablet 10 m g Given 11/19/2021 14:56 EDT 10 mg 10 mg, oral, NOW X1, 1 dose, On Mon11/19/21 at 1445, Routine documented in this encounter Orders Medications Ordered That Might Not Have Count Last Ord ered Date First Ordered Date Been Administered dexAMETHasone (DECADRON) tablet 40 mg 1 11/19/2021 diphenhydrAMINE (BENADRYL) injection 50 mg 1 11/19 EPINEPHrine (ADRENALIN) injection 0.3 mg 1 022 methylPREDNISolone sod suc(PF) 1 11/19/2021 (SOLU-MEDROL) injection 100 mg montelukast (SINGULAIR) tablet 10 mg 1 11/19/2021 Nursing Count Last Ordered Date First Ordered Date INFORMED CONSENT 11/19/2021 Appointment Requests Count Last Ordered Date First Ord ered Date ONCBCN INFUSION APPOINTMENT REQUEST - 11/19/2021 CALCULATED documented in this encounter Care Teams Back Office Medical Assistant Relationship Specialty Start Date End Date Esau Serrano PA-C PCP - General 09/03/21 [address] [place] [address] Saray Nicholson ND Naturopathic Medicine 09/03/[address] [place] [address] documented as of this encounter
--- OUTSIDE RECORDS SUMMARY | 2022-01-24 10:48 | XMS_ITS | Encounter Summary ---
:1960 Author Organization [facility] Address [address] [place] [address] Care Team Providers Name Role Phone Esau Serrano PA-C Primary Care Provider [phone] Saray Nicholson ND Unavailable [phone] Encounter Details Date Type Department Care Team Description 11/19/2021 Phlebotomy Only [facility] Cancer Center Blood Doctor, ANALI colón nephropathy ([facility]) ([facility]); Hematology & Oncology [facility] Hem Onc AL am yloidosis ([facility]) ([facility]) - [place] [address] [place] [address] Social History Tobacco Use Types [...] documented as of this encounter Progress Notes [place], [place], [place] - 11/19/2021 1300 EDT Venipuncture performed for Elaina Per orders of Elaina Number of attempts 1, left ac I was supervised by Rodolfo who was present and immediately available in the office suite. MENDY MCGOVERN MA 11/19/2021 13:17 documented in this encounter Plan of Treatment Upcoming Encounters Date Type Specialty Care Team Description 01/28/2022 Phlebotomy Only Hematology and Oncology Blood Doctor, [facility] Hem Onc 01/28/2022 Appointment Infusion Therapy 02/04/2022 Phlebotomy Only Hematology and Oncology Blood Doctor, [facility] Hem Onc 02/04/2022 Office Visit Hematology and Oncology Henrik Marquez MD 111 [facility], [facility] 2 [place] [address] (Wo rk) 02/04/2022 Appointment Infusion Therapy 02/11/2022 Phlebotomy Only Hematology and Oncology Blood Doctor, [facility] Hem Onc 02/11/2022 Appointment Infusion Therapy 02/18/2022 Phlebotomy Only Hematology and Oncology Blood Doctor, [facility] Hem Onc 02/18/2022 Appointment Infusion Therapy 03/09/2022 Office Visit Hematology and Oncology Dayanna Roman NP 111 [facility], [facility] 2 [place] [address] (Wo rk) documented as of this encounter Procedures Procedure Name Priority Date/Time Associated Comments Diagnosis COMPREHENSIVE STAT 11/19/2021 13:28 AL amyloidosis Results for this METABOLIC PANEL EDT ([facility]) ([facility]) procedure are in (ONCOLOGY USE ONLY-INC the r esults MG) section. COMPLETE BLOOD COUNT STAT 11/19/2021 13:28 AL amyloidosis R esults for this AND DIFF, CHEMO EDT ([facility]) ([facility]) procedure are in the results section. documented in this encounter Results (ABNORMAL) COMPREHENSIVE METABOLIC PANEL (ONCOLOGY USE ONLY-INC MG) (11/19/2021 13:28 EDT) Pathologist Sig nature Sodium 136 136 - 145 [facility] mmol/L [facility] Potassium 4.2 3.5 - 5.0 [facility] mmol/L [facility] Chloride 106 96 - 110 mmol/L [facility] CO2 Total 27 22 - 32 mmol/L [facility] Glucose 142 (H) 70 - 100 mg/dL [facility] BUN 22 10 - 26 mg/dL [facility] Creatinine 0.94 0.66 - 1.25 [facility] mg/dL [facility] eGFR 93 >60 [facility] mL/min/1.73m2 [facility] Total Protein 5.2 (L) 6.3 - 8.2 g/dL [facility] Albumin 2.5 (L) 3.4 - 4.9 g/dL [facility] Alkaline Phosphatase 112 38 - 126 U/L [facility] AST 44 15 - 46 U/L [facility] ALT 29 <50 U/L [facility] Bilirubin, Total 0.5 <1.4 mg/dL [facility] Calcium 8.0 (L) 8.5 - 10.5 [facility] mg/dL [facility] Magnesium 2.0 1.7 - 2.8 mg/dL [facility] Albumin/Globulin 0.9 (L) 1.0 - 2.5 [facility] Ratio [facility] Anion Gap 3 (L) 5 - 14 [facility] Specimen Blood - Venous blood (substance) Performing Organization Address City/State/ZIP Code Phon e Number [facility] [address] [place] [address] SERVICES (ABNORMAL) COMPLETE BLOOD COUNT AND DIFF, CHEMO (11/19/2021 13:28 EDT) WBC 16.03 (H) 4.00 - 10.40 [facility] K/cmm LAB[facility]ORY SERVICES RBC 5.58 4.36 - 5.78 [facility] M/[facility] SERVICES Hemoglobin 16.8 13.8 - 17.3 [facility] gm/dL [facility] HCT 49.8 39.5 - 50.2 % [facility] MCV 89 81 - 95 fl [facility] MCH 30.1 27.6 - 33.0 pg [facility] MCHC 33.7 32.8 - 36.4 [facility] gm/dL LAB[facility] RDW-CV 14.5 (H) <14.2 % [facility] SERVICES RDW-SD 46.8 (H) <46.0 fl [facility] SERVICES PLT 391 (H) 141 - 377 K/cmm [facility] SERVICES MPV 10.5 9.5 - 12.7 fl [facility] SERVICES Neutrophils 91.3 % [facility] Absolute Neutrophils 14.62 (H) 2.20 - 8.85 [facility] K/[facility] LABORATORY SERVICES Type of Differential: Auto [facility] SERVICES Specimen Blood - Venous blood (substance) Performing Organization Address City/State/ZIP Code Phon e Number [facility] [address] [place] [address] SERVICES documented in this encounter Visit Diagnoses Diagnosis AL amyloid nephropathy (HCC-CMS) (HCC) Other amyloidosis AL amyloidosis (HCC-CMS) (HCC) Other amyloidosis documented in this encounter Care Teams Welding Machine Operator Submerged Arc Relationship Specialty Start Date End Date Esau Serrano PA-C PCP - General 09/03/21 [address] [place] [address] Saray Nicholson ND Naturopathic Medicine 09/03/[address] [place] [address] documented as of this encounter
--- OUTSIDE RECORDS SUMMARY | 2022-01-24 10:48 | XMS_ITS | Encounter Summary ---
:1960 Author Organization [facility] Address [address] [place] [address] Care Team Providers Name Role Phone Esau Serrano PA-C Primary Care Provider [phone] Saray Nicholson ND Unavailable [phone] Encounter Details Date Type Department Care Team Description 12/15/2021 Orders Only [facility] Kathy Marquez Hematology & Oncology - A, [address] [address] [address], [place], [place] [address] (Wo rk) Social History [...] Phlebotomy Only Hematology and Oncology Blood Doctor, [facility] Hem Onc 01/28/2022 Appointment Infusion Therapy 02/04/2022 Phlebotomy Only Hematology and Oncology Blood Doctor, [facility] Hem Onc 02/04/2022 Office Visit Hematology and Oncology Henrik Marquez MD [address] [phone] (Wo rk) 02/04/2022 Appointment Infusion Therapy 02/11/2022 Phlebotomy Only Hematology and Oncology Blood Doctor, [facility] Hem Onc 02/11/2022 Appointment Infusion Therapy 02/18/2022 Phlebotomy Only Hematology and Oncology Blood Doctor, [facility] Hem Onc 02/18/2022 Appointment Infusion Therapy 03/09/2022 Office Visit Hematology and Oncology Dayanna Roman, KODI [address] [address] (Wo rk) documented as of this encounter Visit Diagnoses Not on filedocumented in this encounter Care Teams Ballpoint Pen Cartridge Tester Relationship Specialty Start Date End Date Esau Serrano PA-C PCP - General 09/03/21 [address] [place] [address] Saray Nicholson ND Naturopathic Medicine 09/03/[address] [place] [address] documented as of this encounter
--- OUTSIDE RECORDS SUMMARY | 2022-01-24 10:48 | XMS_ITS | Encounter Summary ---
:1960 Author Organization [facility] Address [address] [place] [address] Care Team Providers Name Role Phone Esau Serrano PA-C Primary Care Provider [phone] Saray Nicholson ND Unavailable [phone] Encounter Details Date Type Department Care Team Description 12/10/2021 Phlebotomy Only [facility] Blood Doctor, ANALI torres Hematology & Oncology [facility] Hem Onc ([facility]) (HCC) - Main [place] (Primary Dx) [address] [place] [address] Social History Tobacco Use Types [...] encounter Progress Notes Ranjith Oliver MA - 12/10/2021 1300 EDT Venipuncture performed for Elaina Per orders of Elaina Number of attempts 1 right AC OR I was supervised by Temo who was present and immediately available in the office suite. RANJITH OLIVER MA 12/10/2021 13:39 documented in this encounter Plan of Treatment Upcoming Encounters Date Type Specialty Care Team Description 01/28/2022 Phlebotomy Only Hematology and Oncology Blood Doctor, [facility] Hem Onc 01/28/2022 Appointment Infusion Therapy 02/04/2022 Phlebotomy Only Hematology and Oncology Blood Doctor, [facility] Hem Onc 02/04/2022 Office Visit Hematology and Oncology Henrik Marquez MD 111 [facility] 2 [place] [phone] (Wo rk) 02/04/2022 Appointment Infusion Therapy 02/11/2022 Phlebotomy Only Hematology and Oncology Blood Doctor, [facility] Hem Onc 02/11/2022 Appointment Infusion Therapy 02/18/2022 Phlebotomy Only Hematology and Oncology Blood Doctor, [facility] Hem Onc 02/18/2022 Appointment Infusion Therapy 03/09/2022 Office Visit Hematology and Oncology Dayanna Roman NP 111 [facility], [facility] 2 [place] [address] (Wo rk) documented as of this encounter Procedures Procedure Name Priority Date/Time Associated Comments Diagnosis MONOCLONAL PROTEIN Routine 12/10/2021 13:15 AL amyloidosis Res ults for this MONITORING PANEL, SERUM EDT ([facility]) ([facility]) p rocedure are in the results section. COMPREHENSIVE METABOLIC STAT 12/10/2021 13:15 AL amyloidosi s Results for this PANEL (ONCOLOGY USE EDT (HCC-CMS) (HCC) proce dure are in ONLY-INC MG) the results section. SERUM FREE LIGHT CHAINS Routine 12/10/2021 13:15 AL amyloidosi s Results for this EDT ([facility]) ([facility]) procedure ar e in the results section. COMPLETE BLOOD COUNT STAT 12/10/2021 13:15 AL amyloidosis R esults for this AND DIFF, CHEMO EDT ([facility]) ([facility]) procedure are in the results section. IMMUNOTYPING, SERUM Today 12/10/2021 13:15 AL amyloidosis Re sults for this EDT ([facility]) ([facility]) procedure ar e in the results section. IMMUNOGLOBULINS Routine 12/10/2021 13:15 AL amyloidosis Result s for this EDT ([facility]) ([facility]) procedure ar e in the results section. SPEP, INCLUDES Routine 12/10/2021 13:15 AL amyloidosis Results for this QUANTITATION OF EDT ([facility]) ([facility]) procedure are in MONOCLONAL SPIKE the results section. 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 Reviewed by: Ruben Wang MD 12/13/2021 1344 Specimen Blood - Venous blood (substance) Performing Organization Address City/[facility] Code Phon e Number [facility] LABORATORY [address] [place] [address] SERVICES (ABNORMAL) IMMUNOGLOBULINS (12/10/2021 13:15 EDT) Pathologist Sig nature IgG 126 (L) 610-1,616 mg/dL [facility] LABORA TORY SERVICES IgA 102 85 - 499 mg/dL [facility] LABORAT ORY SERVICES IgM 60 35 - 242 mg/dL [facility] Specimen Blood - Venous blood (substance) Performing Organization Address City/[facility]/ZIP Code Phon e Number [facility] [address] [place] [address] SERVICES SERUM FREE LIGHT CHAINS (12/10/2021 13:15 EDT) Pathologist Sig nature [place] Free Lt Chain 0.87 0.33 - 1.94 [facility] mg/dL LABORATORY SERVICES Lambda Free Lt Chain 1.51 0.57 - 2.63 [facility] mg/dL LABORATORY SERVICES [place]/Lambda Ratio 0.58 0.26 - 1.65 [facility] LABORATORY SERVICES Specimen Blood - Venous blood (substance) Performing Organization Address City/State/ZIP Code Phon e Number [facility] [address] [place] [address] SERVICES (ABNORMAL) SPEP, INCLUDES QUANTITATION OF MONOCLONAL SPIKE (12/10/2021 13:15 EDT) Albumin % 45.8 (L) 55.8 - 66.1 % [facility]OR[facility] SERVICES Albumin g/dL 2.0 (L) 3.6 - 5.2 [facility] g/dL LABORATORY SERVICES Alpha-1 % 7.1 (H) 2.9 - 4.9 % [facility] LABORATORY SERVICES Alpha-1 g/dL 0.30 0.15 - 0.40 [facility] g/dL LABORATORY SERVICES Alpha-2 % 30.6 (H) 7.1 - 11.8 % [facility] LABORATORY SERVICES Alpha-2 g/dL 1.30 (H) 0.50 - 1.00 [facility] g/dL LABORATORY SERVICES Beta % 12.0 8.4 - 13.1 % [facility] LABORATORY SERVICES Beta g/dL 0.50 (L) 0.60 - 1.20 [facility] g/dL LABORATORY SERVICES Gamma % 4.5 (L) 11.1 - 18.8 % [facility] LABORATORY SERVICES Gamma g/dL 0.20 (L) 0.60 - 1.60 [facility] g/dL LABORATORY SERVICES SPEP Comment Suspicious pattern [facility] seen on protein LABORATORY electrophoresis, SERVICES immunotyping added by reflex.Comment: See scanned/supplementary report. Total Protein 4.4 (L) 6.3 - 8.2 [facility] g/dL LABORATORY SERVICES Specimen Blood - Venous blood (substance) Narrative This result has an attachment that is no t available. Performing Organization Address City/State/ZIP Code Phon e Number [facility] [address] [place] [address] SERVICES PROTEIN, TOTAL (12/10/2021 13:15 EDT) Specimen Blood - Venous blood (substance) Performing Organization Address City/State/ZIP Code Phon e Number [facility] [address] [place] [address] SERVICES (ABNORMAL) COMPREHENSIVE METABOLIC PANEL (ONCOLOGY USE ONLY-INC MG) (12/10/2021 13:15 EDT) Pathologist Sig nature Sodium 136 136 - 145 [facility] mmol/L LABORATORY SERVICES Potassium 4.2 3.5 - 5.0 [facility] mmol/L LABORATORY SERVICES Chloride 104 96 - 110 mmol/L [facility] SERVICES CO2 Total 26 22 - 32 mmol/L [facility] SERVICES Glucose 188 (H) 70 - 100 mg/dL [facility] SERVICES BUN 24 10 - 26 mg/dL [facility] SERVICES Creatinine 0.99 0.66 - 1.25 [facility] mg/dL LABORATORY SERVICES eGFR 87 >60 [facility] mL/min/1.73m2 LABORATORY SERVICES Total Protein 4.4 (L) 6.3 - 8.2 g/dL [facility] LABORATORY SERVICES Albumin 2.2 (L) 3.4 - 4.9 g/dL [facility] LABORATORY SERVICES Alkaline Phosphatase 147 (H) 38 - 126 U/L [facility] LABORATORY SERVICES AST 33 15 - 46 U/L [facility] SERVICES ALT 22 <50 U/L [facility]OR[facility] SERVICES Bilirubin, Total <0.5 <1.4 mg/dL [facility] LABORATORY SERVICES Calcium 7.5 (L) 8.5 - 10.5 [facility] mg/dL LABORATORY SERVICES Magnesium 1.8 1.7 - 2.8 mg/dL [facility] LABORATORY SERVICES Albumin/Globulin 1.0 1.0 - 2.5 [facility] Ratio LABORATORY SERVICES Anion Gap 6 5 - 14 [facility] LABORATORY SERVICES Specimen Blood - Venous blood (substance) Performing Organization Address City/State/ZIP Code Phon e Number [facility] [address] [place] [address] SERVICES (ABNORMAL) COMPLETE BLOOD COUNT AND DIFF, CHEMO (12/10/2021 13:15 EDT) WBC 10.75 (H) 4.00 - 10.40 [facility] K/cmm LABORATORY SERVICES RBC 4.90 4.36 - 5.78 [facility] M/[facility] LABORATORY SERVICES Hemoglobin 15.1 13.8 - 17.3 [facility] gm/dL LABORATORY SERVICES HCT 44.2 39.5 - 50.2 % [facility] LABORATORY SERVICES MCV 90 81 - 95 fl [facility] LABORATORY SERVICES MCH 30.8 27.6 - 33.0 pg [facility] LABORATORY SERVICES MCHC 34.2 32.8 - 36.4 [facility] gm/dL LABORATORY SERVICES RDW-CV 15.3 (H) <14.2 % [facility] LABORATORY SERVICES RDW-SD 48.7 (H) <46.0 fl [facility] LABORATORY SERVICES PLT 228 141 - 377 K/cmm [facility] LABORATORY SERVICES MPV 11.2 9.5 - 12.7 fl [facility] LABORATORY SERVICES Neutrophils 95.3 % [facility] LABORATORY SERVICES Absolute Neutrophils 10.24 (H) 2.20 - 8.85 [facility] LABORATORY SERVICES Type of Differential: Auto [facility] LABORAT[facility] SERVICES Specimen Blood - Venous blood (substance) Performing Organization Address City/State/ZIP Code Phon e Number [facility] [address] [place] [address] SERVICES documented in this encounter Visit Diagnoses Diagnosis AL amyloidosis (HCC-CMS) (HCC) - Primary Other amyloidosis documented in this encounter Care Teams Food Service Director Relationship Specialty Start Date End Date Esau Serrano PA-C PCP - General 09/03/21 [address] [place] [address] Saray Nicholson ND Naturopathic Medicine 09/03/[address] [place] [phone] documented as of this encounter
--- OUTSIDE RECORDS SUMMARY | 2022-01-24 10:48 | XMS_ITS | Encounter Summary ---
:1960 Author Organization [facility] Address [address] [place] [address] Care Team Providers Name Role Phone Esau Serrano PA-C Primary Care Provider [phone] Saray Nicholson ND Unavailable [phone] Reason for Visit Reason Onset Date Comments Follow-up 12/06/2021 Encounter Details Date Type Department Care Team Description 12/06/2021 Telephone [facility] Cancer [facility] Hematology Wesley Orozco, [facility] Follow-up & Oncology - Main [facility] [address] [place], [place] [id number] Social History Tobacco Use Types Packs/Day Years [...] Telephone Encounter - Jerod Orozco LICSW - 12/06/2021 0846 EDT LYNETTE HAND Note: Reason for Call: Pt sent me a message suggesting I work on the [facility] request form prior to 12/11 asinitially stated. I replied to juan and explained that we're currently working on it and we have enough to cover him for 12/17. I explained I would continue to update him. Pt Centered Identified Goal: Coverage for [employer] Plan: documented in this encounter Plan of Treatment Upcoming Encounters Date Type Specialty Care Team Description 01/28/2022 Phlebotomy Only Hematology and Oncology Blood Doctor, [facility] Hem Onc 01/28/2022 Appointment Infusion Therapy 02/04/2022 Phlebotomy Only Hematology and Oncology Blood Doctor, [facility] Hem Onc 02/04/2022 Office Visit Hematology and Oncology Henrik Marquez MD [address] [phone] (Wo rk) 02/04/2022 Appointment Infusion Therapy 02/11/2022 Phlebotomy Only Hematology and Oncology Blood Doctor, [facility] Hem Onc 02/11/2022 Appointment Infusion Therapy 02/18/2022 Phlebotomy Only Hematology and Oncology Blood Doctor, [facility] Hem Onc 02/18/2022 Appointment Infusion Therapy 03/09/2022 Office Visit Hematology and Oncology Dayanna Roman, KODI [address] [address] (Wo rk) documented as of this encounter Visit Diagnoses Not on filedocumented in this encounter Care Teams Contact Center Director Relationship Specialty Start Date End Date Esau Serrano PA-C PCP - General 09/03/[address] [place] [phone] Saray Nicholson, JOVAN Naturopathic Medicine 09/03/[address] [place] [address] documented as of this encounter
--- OUTSIDE RECORDS SUMMARY | 2022-01-24 10:48 | XMS_ITS | Encounter Summary ---
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[facility]) ([facility]) Dayanna Raman, KODI [facility] 111 [facility] 4 [facility], [address] [place], [place] [address] [place] [address] Phone: [phone] Referral ID Status Reason Start Expiration Visits Visits Date Date Requested Authorized [id number] Authorization Specialty 12/24/2021 1 1 Not Required [...] Therapy Plan, Lab Orders, Supportive Plan, Etc) Reason for Visit Prior Authorization (See Order Priority) - Authorization Not Required Specialty Diagnoses / Procedures Referred By Contact Refer red To Contact Infusion Therapy 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[facility]) ([facility]) Dayanna Raman, KODI [facility] [address] [place], [place] [address] [place] [address] Phone: [phone] Referral ID Status Reason Start Expiration Visits Visits Date Date Requested Authorized [id number] Authorization Specialty 12/24/2021 1 1 Not Required Services Required Encounter Details Date Type Department Care Team Description 12/24/2021 Hospital Encounter [facility] AL amyloidosis Ambulatory Infusion ([facility] ) ([facility]) Center [address] [place] [address] Social History Tobacco Use Types Packs/Day Years [...] Sign Reading Time Taken Comments Blood Pressure 157/96 12/24/2021 1556 EDT Pulse 95 12/24/2021 1556 EDT Temperature 37.3 ??C (99.1 ??F) 12/24/2021 1556 EDT Respiratory Rate 20 12/24/2021 1556 EDT Oxygen Saturation 98% 12/24/2021 1556 EDT Inhaled Oxygen Concentration - - Weight - - Height - - Body Mass Index - - documented in this encounter Functional Status Functional [...] documented as of this encounter Discharge Instructions Argelia Chirinos RN - 12/24/2021 Images from the original note were not included. Today you received an infusion of a monoclonal antibody called Bebtelovimab for treatment of COVID-19 symptoms. This guidance is for people who are vaccinated, boosted or unvaccinated. Stay home and isolate for 5 days. You can leave your home after day 5 if: you have two negative antigen tests performed at least 24 hours apart beginning no earlier than day4* AND you never had symptoms, or your symptoms have improved and you feel better AND you have had no fever for at least 24 hours without the use of medicine that reduces fevers AND you wear a mask around others through day 10. Notify your close contacts that you have tested positive. *Testing is strongly recommended. If you are unable to get a test and you meet all other requirements you can end isolation after 5 days. If you experience symptoms of delayed infusion reaction including Itching Nausea Dizziness Headache Rash Consult your medical doctor If you experience: Difficulty breathing or chest pain call 911 If you have not yet had your COVID Vaccinations/Booster, you will need to wait 90 days from today for this vaccination. Contact Number: [phone] documented in this encounter Medications at Time [...] Code Departure Means Destination Home or Self Senior Care documented in this encounter Plan of Treatment Upcoming Encounters Date Type Specialty Care Team Description 01/28/2022 Phlebotomy Only Hematology and Oncology Blood Doctor, [facility] Hem Onc 01/28/2022 Appointment Infusion Therapy 02/04/2022 Phlebotomy Only Hematology and Oncology Blood Doctor, [facility] Hem Onc 02/04/2022 Office Visit Hematology and Oncology Henrik Marquez MD [address] [phone] (Wo rk) 02/04/2022 Appointment Infusion Therapy 02/11/2022 Phlebotomy Only Hematology and Oncology Blood Doctor, [facility] Hem Onc 02/11/2022 Appointment Infusion Therapy 02/18/2022 Phlebotomy Only Hematology and Oncology Blood Doctor, [facility] Hem Onc 02/18/2022 Appointment Infusion Therapy 03/09/2022 Office Visit Hematology and Oncology Dayanna Roman NP 111 [facility] 2 [place] [address] (Wo rk) Scheduled Referrals Name Type Priority Associated Order Schedule Diagnoses AMB CONS/FOLLOW Outpatient Routine/Next AL amyloidosis 1 Occurren noemí UP SHEP 4 Referral Available ([facility]) ([facility]) starting INFUSIONS ([facility] 12/24/2021 until ONLY) 12/24/2021 documented as of this encounter Visit Diagnoses Diagnosis AL amyloidosis ([facility]) ([facility]) Other amyloidosis documented in this encounter Administered Medications Inactive Administered Medications - up to 3 most recent administrations Medication Order MAR Action Action Date Dose Rate Site bebtelovimab 175 mg Given 12/24/2021 16:05 EDT 175 mg 175 mg, intravenous, NOW X1, 1 dose, On Mon12/24/21 at 1600, Routine, OP Infusion documented in this encounter Orders Medications Ordered That Might Not Have Count Last Ord ered Date First Ordered Date Been Administered acetaminophen (TYLENOL) tablet 650 mg 1 12/24/2021 diphenhydrAMINE (BENADRYL) injection 50 mg 1 12/24 EPINEPHrine (ADRENALIN) injection 0.3 mg 1 022 lidocaine (PF) 10 mg/mL (1 %) injection 2 1 2021 mg methylPREDNISolone sod suc(PF) 1 12/24/2021 (SOLU-MEDROL) injection 100 mg ondansetron (PF) (ZOFRAN) injection 4 mg 1 sodium chloride 0.9 % (flush) flush 10 mL 1 2021 sodium chloride 0.9 % (flush) flush 20 mL 1 2021 sodium chloride 0.9 % (NS) infusion 1 12/24/2021 documented in this encounter Care Teams Gis Manager Relationship Specialty Start Date End Date Esau Serrano PA-C PCP - General 09/03/21 [address] [place] [address] Saray Nicholson ND Naturopathic Medicine 09/03/[address] [place] [phone] documented as of this encounter
--- OUTSIDE RECORDS SUMMARY | 2022-01-24 10:48 | XMS_ITS | Encounter Summary ---
:1960 Author Organization [facility] Address [address] [place] [address] Care Team Providers Name Role Phone Esau Serrano PA-C Primary Care Provider [phone] Saray Nicholson ND Unavailable [phone] Reason for Visit Reason Comments Chemotherapy Episode Based Medications (Routine) - Authorization Not Required Specialty Diagnoses / Procedures Referred By Contact Refer red To Contact 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[facility]) ([facility]) Henrik Marquez Ep2 Pat Dotson MD [id number] [place] [address], [facility] Phone: Shabana Lema [address] [place] [address] Referral ID Status Reason Start Expiration Visits Visits Date Date Requested Authorized [id number] Authorization Not 10/18/2021 04/23/2022 50 5 0 Required Encounter Details Date Type Department Care Team Description 11/26/2021 Hospital Encounter [facility] Cancer Center AL a myloidosis Hematology & Oncology (HCC-C MS) ([facility]) - [facility] (Primary Dx) [address] [place] [address] Social History Tobacco Use Types Packs/Day Years [...] Sign Reading Time Taken Comments Blood Pressure 138/95 11/26/2021 1246 EDT Pulse 95 11/26/2021 1246 EDT Temperature 36.2 ??C (97.1 ??F) 11/26/2021 1246 EDT Respiratory Rate 16 11/26/2021 1246 EDT Oxygen Saturation 98% 11/26/2021 1246 EDT Inhaled Oxygen Concentration - - Weight 112.1 kg (247 lb 1.6 oz) 11/26/2021 1246 EDT Height - - Body Mass Index 33.98 11/04/2021 0908 EDT documented in this encounter [...] encounter Progress Notes Means, JACKIE Oakes - 11/26/2021 1330 EDT ut-patient Chemotherapy Note Patient presents to clinic today for cycle # 1 , day # 8 of Gretel-CyBord for AL treatment plan. Reviewed lab results with patient CBC: Lab Results Component Value Date WBC 16.77 (H) 11/26/2021 HGB 16.2 11/26/2021 HCT 47.9 11/26/2021 PLT 286 11/26/2021 NEUTROABS 15.66 (H) 11/26/2021 Chemistry: Lab Results Component Value Date NA 136 11/26/2021 K 4.4 11/26/2021 BUN 23 11/26/2021 CREATININE 0.91 11/26/2021 CALCIUM 7.5 (L) 11/26/2021 MG 2.0 11/26/2021 LFT: Lab Results Component Value Date TBIL <0.5 11/26/2021 ALKPHOS 108 11/26/2021 AST 36 11/26/2021 ALT 26 11/26/2021 Parameters for today???s treatment met. Patient received pre-meds, Compazine, Tylenol, Benadryl PO, Bortezomib (see MAR) subcutaneously to left upper abdomen and Darzalex FASPRO subcutaneous to left lower abdomen over 4 minutes. Dressing applied. Both sites clear. Took Decadron and Singulair at home. Also received Cytoxan 725mg po with food. Patient appeared to tolerate tx well. Patient education: Patient educated on medications administered today. Patient expressed understanding of education provided and no barriers identified Patient and family members encouraged to call clinic with any issues. I was supervised by who was present and immediately available in the office suite. Gabby Larrow, RN documented in this encounter Miscellaneous Notes Addendum Note - Fawad Nicholson - 11/26/2021 1330 EDT Encounter addended by: Fawad Nicholson on: 12/24/2021 7:50 Actions taken: Charge Capture section accepted documented in this encounter Plan of Treatment Upcoming Encounters Date Type Specialty Care Team Description 01/28/2022 Phlebotomy Only Hematology and Oncology Blood Doctor, [facility] Hem Onc 01/28/2022 Appointment Infusion Therapy 02/04/2022 Phlebotomy Only Hematology and Oncology Blood Doctor, [facility] Hem Onc 02/04/2022 Office Visit Hematology and Oncology Henrik Marquez MD [address] [address] (Wo rk) 02/04/2022 Appointment Infusion Therapy 02/11/2022 Phlebotomy Only Hematology and Oncology Blood Doctor, [facility] Hem Onc 02/11/2022 Appointment Infusion Therapy 02/18/2022 Phlebotomy Only Hematology and Oncology Blood Doctor, [facility] Hem Onc 02/18/2022 Appointment Infusion Therapy 03/09/2022 Office Visit Hematology and Oncology Dayanna Roman, KODI [address] [address] (Wo rk) documented as of this encounter Visit Diagnoses Diagnosis AL amyloidosis (HCC-CMS) (HCC) - Primary Other amyloidosis documented in this encounter Administered Medications Inactive Administered Medications - up to 3 most recent administrations Medication Order MAR Action Action Date Dose Rate Site acetaminophen (TYLENOL) tablet 650 Given 11/26/2021 14:11 EDT 65 0 mg mg 650 mg, oral, NOW X1, 1 dose, On Mon11/26/21 at 1415, Routine bortezomib (VELCADE) chemo Given 11/26/2021 14:53 EDT 3.13 mg Left Upper Abdomen syringe 3.13 mg 3.13 mg (rounded from 3.133 mg = 1.3 mg/m2 ? 2.41 m2 Treatment Plan Recorded BSA), subcutaneous, NOW X1, 1 dose, On Mon11/26/21 at 1445 cyclophosphamide (CYTOXAN) capsule 725 m g Given 11/26/2021 15:15 EDT 725 mg 725 mg (rounded from 723 mg = 300 mg/m2 ? 2.41 m2 Treatment Plan Recorded BSA), oral, NOW X1, 1 dose, On Mon11/26/21 at 1445, Routine hyexehskjek-fqroocxrfjlxz-LLLO Given 11/26/2021 15:00 1,800 mg Left Lower (DARZALEX FASPRO) subcutaneous EDT Abdomen injection 1,800 mg 1,800 mg, subcutaneous, NOW X1, 1 dose, On Mon11/26/21 at 1515, Routine diphenhydrAMINE (BENADRYL) capsule 50 mg Given 11/26/2021 14:15 EDT 50 mg 50 mg, oral, NOW X1, 1 dose, On Mon11/26/21 at 1430, Routine prochlorperazine (COMPAZINE) tablet 10 m g Given 11/26/2021 14:10 EDT 10 mg 10 mg, oral, NOW X1, 1 dose, On Mon11/26/21 at 1415, Routine documented in this encounter Orders Medications Ordered That Might Not Have Count Last Ord ered Date First Ordered Date Been Administered diphenhydrAMINE (BENADRYL) 50 mg in sodium 1 11/26 chloride (NS) 0.9 % 50 mL IVPB diphenhydrAMINE (BENADRYL) injection 50 mg 1 11/26 EPINEPHrine (ADRENALIN) injection 0.3 mg 1 022 methylPREDNISolone sod suc(PF) 1 11/26/2021 (SOLU-MEDROL) injection 100 mg Appointment Requests Count Last Ordered Date First Ord ered Date ONCBCN INFUSION APPOINTMENT REQUEST - 11/26/2021 CALCULATED documented in this encounter Care Teams Film Recordist Relationship Specialty Start Date End Date Esau Serrano PA-C PCP - General 09/03/21 [address] [place] [address] Saray Nicholson, JOVAN Naturopathic Medicine 09/03/[address] [place] [address] documented as of this encounter
--- OUTSIDE RECORDS SUMMARY | 2022-01-24 10:48 | XMS_ITS | Encounter Summary ---
:1960 Author Organization [facility] Address [address] [place] [address] Care Team Providers Name Role Phone Esau Serrano PA-C Primary Care Provider [phone] Saray Nicholson ND Unavailable [phone] Encounter Details Date Type Department Care Team Description 12/17/2021 Orders Only [facility] Cancer [facility] ANALI Marquez myloidosis Hematology & Oncology Franco Pace ([facility]) ([facility]) - [id number] [place] [address] [facility] 2 [place] [address] (Wo rk) Social History Tobacco [...] Hematology and Oncology Henrik Marquez MD 111 [facility] 2 [place] [address] (Wo rk) 02/04/2022 Appointment Infusion Therapy 02/11/2022 Phlebotomy Only Hematology and Oncology Blood Doctor, [facility] Hem Onc 02/11/2022 Appointment Infusion Therapy 02/18/2022 Phlebotomy Only Hematology and Oncology Blood Doctor, [facility] Hem Onc 02/18/2022 Appointment Infusion Therapy 03/09/2022 Office Visit Hematology and Oncology Dayanna Roman NP 111 [facility] 2 [place] [address] (Wo rk) documented as of this encounter Procedures Procedure Name Priority Date/Time Associated Diagnosis Comme nts URINE MONOCLONAL Routine 12/17/2021 6:45 AL amyloidosis Result s for this PROTEIN STUDY ([facility] EDT ([facility]) ([facility]) proce dure are in WITH IMMUNOTYPING), the resu lts 24 HR section. URINE MONOCLONAL Routine 12/17/2021 6:45 AL amyloidosis Result s for this PROTEIN STUDY (U[facility] EDT ([facility]) ([facility]) proce dure are in WITH IMMUNOTYPING), the resu lts 24 HR section. PROTEIN, TOTAL, 24 Routine 12/17/2021 6:45 AL amyloidosis HR, URINE EDT ([facility]) ([facility]) documented in this encounter Results (ABNORMAL) URINE MONOCLONAL PROTEIN STUDY ([facility] WITH IMMUNOTYPING), 24 HR (12/17/2021 6:45 EDT) Total Protein, 15,792 (H) <150 [facility] Urine 24 hr mg/24hrs [facility] Albumin, Urine % 70.4 N/A % [facility] Albumin, Urine 11,118 mg/24hrs [facility] mg/24hrs [facility] Globulins, Urine 29.6 N/A % [facility] % [facility] Globulins, Urine 4,674 mg/24hrs [facility] mg/24hrs [facility] UPEP Comment See CommentComment: [facility] Electrophoresis [facility] screening performed; SERVICES Immunotyping to follow. See scanned/supplementary report. Urine Volume 2,100 mL [facility] Urine Collection 24.5 Hours [facility] LABORATORY SERVICES Immunotyping, Current [facility] Urine Interpretation: [facility] Negative for free SERVICES monoclonal light chains. Reviewed by: Ruben Wang MD 12/20/2021 1415 Total Protein, 752 See Note [facility] Urine Comment: mg/dL [facility] NOTE: SERVICES Reference range not established Specimen Urine - 24 hour urine specimen (specimen ) Narrative This result has an attachment that is no t available. Performing Organization Address City/State/ZIP Code Phon e Number [facility] [address] [place] [address] SERVICES PROTEIN, TOTAL, 24 HR, URINE (12/17/2021 6:45 EDT) Specimen Urine - 24 hour urine specimen (specimen ) Performing Organization Address City/State/ZIP Code Phon e Number [facility] [address] [place] [address] SERVICES documented in this encounter Visit Diagnoses Diagnosis AL amyloidosis ([facility]) (HCC) Other amyloidosis documented in this encounter Care Teams Maintenance And Repair Worker Relationship Specialty Start Date End Date Esau Serrano PA-C PCP - General 09/03/21 [address] [place] [phone] Saray Nicholson ND Naturopathic Medicine 09/03/[address] [place] [address] documented as of this encounter
--- OUTSIDE RECORDS SUMMARY | 2022-01-24 10:48 | XMS_ITS | Encounter Summary ---
:1960 Author Organization [facility] Address [address] [place] [address] Care Team Providers Name Role Phone Esau Serrano PA-C Primary Care Provider [phone] Saray Nicholson ND Unavailable [phone] Encounter Details Date Type Department Care Team Description 11/19/2021 Orders Only [facility] Navdeep Downing Nep hrotic syndrome Nephrology - S Prosp ect MD [address] [phone] Rehab, Level 2 [place] [address] (Wo rk) Social History Tobacco Use Types [...] Phlebotomy Only Hematology and Oncology Blood Doctor, [facility] Hem Onc 01/28/2022 Appointment Infusion Therapy 02/04/2022 Phlebotomy Only Hematology and Oncology Blood Doctor, [facility] Hem Onc 02/04/2022 Office Visit Hematology and Oncology Henrik Marquez MD [address] [phone] (Wo rk) 02/04/2022 Appointment Infusion Therapy 02/11/2022 Phlebotomy Only Hematology and Oncology Blood Doctor, [facility] Hem Onc 02/11/2022 Appointment Infusion Therapy 02/18/2022 Phlebotomy Only Hematology and Oncology Blood Doctor, [facility] Hem Onc 02/18/2022 Appointment Infusion Therapy 03/09/2022 Office Visit Hematology and Oncology Dayanna Roman NP [address] [phone] (Wo rk) documented as of this encounter Procedures Procedure Name Priority Date/Time Associated Comments Diagnosis URINE MONOCLONAL Routine 11/19/2021 13:17 Nephrotic syndrome R esults for this PROTEIN STUDY ([facility] EDT procedur e are in WITH IMMUNOTYPING) the [facility] ts PERFORMABLE section. PROTEIN, TOTAL, Routine 11/19/2021 13:17 Nephrotic syndrome RANDOM, URINE EDT URINE MONOCLONAL Routine 11/19/2021 13:17 Nephrotic syndrome R esults for this PROTEIN STUDY ([facility] EDT procedur e are in WITH IMMUNOTYPING) the [facility] ts section. documented in this encounter Results URINE MONOCLONAL PROTEIN STUDY ([facility] WITH IMMUNOTYPING) PERFORMABLE (11/19/2021 13:17 EDT) Albumin, Urine % 75.9 N/A % [facility] Albumin, Urine 1,712 mg/dL [facility] mg/dL [facility] Globulins, Urine 24.1 N/A % [facility] % [facility] Globulins, Urine 544 mg/dL [facility] mg/dL [facility] UPEP Comment See CommentComment: [facility] Electrophoresis [facility] screening performed; SERVICES Immunotyping to follow. See scanned/supplementary report. Immunotyping, Current [facility] Urine Interpretation: [facility] Negative for free SERVICES monoclonal light chains. Reviewed by: Kenji Cuevas MD, PhD 11/22/2021 15:40. Total Protein, 2,256 See Note [facility] Urine Comment: mg/dL [facility] NOTE: SERVICES Reference range has not been established for total protein concentration in random urine specimens. Specimen Urine - Urine (substance) Narrative This result has an attachment that is no t available. Performing Organization Address City/State/ZIP Code Phon e Number [facility] [address] [place] [address] SERVICES PROTEIN, TOTAL, RANDOM, URINE (11/19/2021 13:17 EDT) Specimen Urine - Urine (substance) Performing Organization Address City/State/ZIP Code Phon e Number [facility] [address] [place] [address] SERVICES documented in this encounter Visit Diagnoses Diagnosis Nephrotic syndrome Nephrotic syndrome with unspecified path ological lesion in kidney documented in this encounter Care Teams Heavy Equipment Operator/Paver Relationship Specialty Start Date End Date Esau Serrano PA-C PCP - General 09/03/21 [address] [place] [address] Saray Nicholson ND Naturopathic Medicine 09/03/[address] [place] [address] documented as of this encounter
--- OUTSIDE RECORDS SUMMARY | 2022-01-24 10:48 | XMS_ITS | Encounter Summary ---
:1960 Author Organization [facility] Address [address] [place] [address] Care Team Providers Name Role Phone Esau Serrano PA-C Primary Care Provider [phone] Saray Nicholson ND Unavailable [phone] Reason for Visit Reason Comments Chemotherapy And Provider Visit Episode Based Medications (Routine) - Authorization Not Required Specialty Diagnoses / Procedures Referred By Contact Refer red To Contact 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[facility]) ([facility]) Henrik Marquez Ep2 Pat Dotson MD 111 [facility] [address], Main Phone: [place] Level [address] [place] [address] Referral ID Status Reason Start Expiration Visits Visits Date Date Requested Authorized [id number] Authorization Not 10/18/2021 04/23/2022 50 5 0 Required Encounter Details Date Type Department Care Team Description 12/10/2021 Hospital Encounter [facility] Cancer Center AL a myloidosis Hematology & Oncology (HCC-C MS) ([facility]) - [facility] (Primary Dx) [address] [place] [address] Social History Tobacco Use Types Packs/Day Years [...] Sign Reading Time Taken Comments Blood Pressure 140/87 12/10/2021 1316 EDT Pulse 105 12/10/2021 1316 EDT Temperature 36.3 ??C (97.3 ??F) 12/10/2021 1316 EDT Respiratory Rate 15 12/10/2021 1316 EDT Oxygen Saturation 97% 12/10/2021 1316 EDT Inhaled Oxygen Concentration - - Weight 116.3 kg (256 lb 4.8 oz) 12/10/2021 1316 EDT Height - - Body Mass Index 35.25 11/04/2021 0908 EDT documented in this encounter [...] every 6 hours as needed for Nausea. LORazepam (ATIVAN) 0.5 Take 2 Tablets by 30 Tablet 1 202101/11/2022 mg tablet mouth at bedtime as needed for Anxiety. Daily Max: 1 mg torsemide (DEMADEX) 5 mg Take 1 Tablet by 30 Tablet 0 11/1612/13/2021 tablet mouth daily. 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 Reviewed lab results with patient CBC: Lab Results Component Value Date WBC 10.75 (H) 12/10/2021 HGB 15.1 12/10/2021 HCT 44.2 12/10/2021 PLT 228 12/10/2021 NEUTROABS 10.24 (H) 12/10/2021 Chemistry: Lab Results Component Value Date NA 136 12/10/2021 K 4.2 12/10/2021 BUN 24 12/10/2021 CREATININE 0.99 12/10/2021 CALCIUM 7.5 (L) 12/10/2021 MG 1.8 12/10/2021 LFT: Lab Results Component Value Date TBIL <0.5 12/10/2021 ALKPHOS 147 (H) 12/10/2021 AST 33 12/10/2021 ALT 22 12/10/2021 Parameters for today???s treatment met. Patient received diphenhydramine 50mg IVPB, acetaminophen 650mg PO, and prochlorperazine 10mg PO prior to receiving cyclophosphamide 725mg PO, vsczcijxqjy-opfdgoyuytuvc-QDPF (see MAR) subcutaneously toLLQ of abdomen, bortezomib 3.13mg subcutaneously to LUQ of abdomen. Dressing applied. Patient tolerating chemotherapy treatment at this time with no signs of reaction or side effects Patient education: Patient educated on all medications administered today. Patient expressed understanding of education provided and no barriers identified. Patient and family encouraged to call clinic with any issues. I was supervised by Dr. Plascencia who was present and immediately available in the office suite. ANTHONY HERNÁNDEZ RN 12/10/2021 13:35 documented in this encounter Miscellaneous Notes Addendum Note - Fawad Nicholson - 12/10/2021 1315 EDT Encounter addended by: Fawad Nicholson on: [...] Hematology and Oncology Henrik Marquez MD [address] [phone] (Wo rk) 02/04/2022 Appointment Infusion Therapy 02/11/2022 Phlebotomy Only Hematology and Oncology Blood Doctor, [facility] Hem Onc 02/11/2022 Appointment Infusion Therapy 02/18/2022 Phlebotomy Only Hematology and Oncology Blood Doctor, [facility] Hem Onc 02/18/2022 Appointment Infusion Therapy 03/09/2022 Office Visit Hematology and Oncology Dayanna Roman, KODI 111 [facility] 2 [place] [address] (Wo rk) documented as of this encounter Visit Diagnoses Diagnosis AL amyloidosis (HCC-CMS) (HCC) - Primary Other amyloidosis documented in this encounter Administered Medications Inactive Administered Medications - up to 3 most recent administrations Medication Order MAR Action Action Date Dose Rate Site acetaminophen (TYLENOL) tablet 650 Given 12/10/2021 14:04 EDT 65 0 mg mg 650 mg, oral, NOW X1, 1 dose, On Mon12/10/21 at 1415, Routine bortezomib (VELCADE) chemo Given 12/10/2021 14:51 EDT 3.13 mg Left Upper Abdomen syringe 3.13 mg 3.13 mg (rounded from 3.133 mg = 1.3 mg/m2 ? 2.41 m2 Treatment Plan Recorded BSA), subcutaneous, NOW X1, 1 dose, On Mon12/10/21 at 1445 cyclophosphamide (CYTOXAN) capsule 725 m g Given 12/10/2021 14:43 EDT 725 mg 725 mg (rounded from 723 mg = 300 mg/m2 ? 2.41 m2 Treatment Plan Recorded BSA), oral, NOW X1, 1 dose, On Mon12/10/21 at 1445, Routine lkosvgixzyy-ihztguywjqdss-JWJV Given 12/10/2021 14:52 1,800 mg Left Lower (DARZALEX FASPRO) subcutaneous EDT Abdomen injection 1,800 mg 1,800 mg, subcutaneous, NOW X1, 1 dose, On Mon12/10/21 at 1515, Routine diphenhydrAMINE (BENADRYL) capsule 50 mg Given 12/10/2021 14:05 EDT 50 mg 50 mg, oral, NOW X1, 1 dose, On Mon12/10/21 at 1430, Routine prochlorperazine (COMPAZINE) tablet 10 m g Given 12/10/2021 14:05 EDT 10 mg 10 mg, oral, NOW X1, 1 dose, On Mon12/10/21 at 1415, Routine documented in this encounter Orders Medications Ordered That Might Not Have Count Last Ord ered Date First Ordered Date Been Administered diphenhydrAMINE (BENADRYL) 50 mg in sodium 1 12/10 chloride (NS) 0.9 % 50 mL IVPB Appointment Requests Count Last Ordered Date First Ord ered Date ONCBCN INFUSION APPOINTMENT REQUEST - 1 12/10/2021 CALCULATED documented in this encounter Care Teams Table Top Tile Setter Relationship Specialty Start Date End Date Esau Serrano PA-C PCP - General 09/03/21 [address] [place] [address] Saray Nicholson, JOVAN Naturopathic Medicine 09/03/[address] [place] [address] documented as of this encounter
--- OUTSIDE RECORDS SUMMARY | 2022-01-24 10:48 | XMS_ITS | Encounter Summary ---
:1960 Author Organization [facility] Address [address] [place] [address] Care Team Providers Name Role Phone Esau Serrano PA-C Primary Care Provider [phone] Saray Nicholson ND Unavailable [phone] Reason for Visit Reason Onset Date Comments Medication Management 11/10/2021 Encounter Details Date Type Department Care Team Description 11/10/[address] [facility] Cancer Center Jerod Orozco Medic ation Management Hematology & Oncology - [facility] [address] [place], [place] [id number] Social History Tobacco Use Types Packs/Day Years [...] this encounter Miscellaneous Notes Telephone Encounter - Dee Flower - 11/10/2021 1605 EDT Requesting product request form to be sent to [phone] signed by Dee Flower at 11/10/2021 16:06 EDTdocumented in this encounter Plan of Treatment Upcoming Encounters Date Type Specialty Care Team Description 01/28/2022 Phlebotomy Only Hematology and Oncology Blood Doctor, [facility] Hem Onc 01/28/2022 Appointment Infusion Therapy 02/04/2022 Phlebotomy Only Hematology and Oncology Blood Doctor, [facility] Hem Onc 02/04/2022 Office Visit Hematology and Oncology Henrik Marquez MD [address] [phone] (Wo rk) 02/04/2022 Appointment Infusion Therapy 02/11/2022 Phlebotomy Only Hematology and Oncology Blood Doctor, [facility] Hem Onc 02/11/2022 Appointment Infusion Therapy 02/18/2022 Phlebotomy Only Hematology and Oncology Blood Doctor, [facility] Hem Onc 02/18/2022 Appointment Infusion Therapy 03/09/2022 Office Visit Hematology and Oncology Dayanna Roman NP [address] [phone] (Wo rk) documented as of this encounter Visit Diagnoses Not on filedocumented in this encounter Care Teams Peer Tutor Relationship Specialty Start Date End Date Esau Serrano PA-C PCP - General 09/03/21 [address] [place] [phone] Saray Nicholson ND Naturopathic Medicine 09/03/[address] [place] [phone] documented as of this encounter
--- OUTSIDE RECORDS SUMMARY | 2022-01-24 10:48 | XMS_ITS | Encounter Summary ---
:1960 Author Organization [facility] Address [address] [place] [address] Care Team Providers Name Role Phone Esau Serrano PA-C Primary Care Provider [phone] Saray Nicholson ND Unavailable [phone] Reason for Visit Reason Onset Date Comments Follow-up 12/22/2021 Encounter Details Date Type Department Care Team Description 12/22/2021 Telephone [facility] Hematology Wesley Orozco, [facility] Follow-up & Oncology - Main [facility] mpus [address] [place], [place] [phone] Social History Tobacco Use Types Packs/Day Years [...] Telephone Encounter - Jerod Orozco LICSW - 12/22/2021 1305 EDT LYNETTE HAND Note: Reason for Call: Senior Mgmt Specialist Edward informed me that the next 5 vials of Darzalex Faspro have been received.I included RN Jay in the message so she's aware. I sent the pt a message with this update. I explained we have the next 5 vials for his treatments 12/24-01/21. I shared with Kimani that my plan is to submit the next pharmacy request form around 01/12 to getthe next 5 treatments covered starting on 01/28. Pt Centered Identified Goal: No insurance coverage Plan: Send the next pharmacy request form on 01/12. Jerod SUE documented in this encounter Plan of Treatment Upcoming Encounters Date Type Specialty Care Team Description 01/28/2022 Phlebotomy Only Hematology and Oncology Blood Doctor, [facility] Hem Onc 01/28/2022 Appointment Infusion Therapy 02/04/2022 Phlebotomy Only Hematology and Oncology Blood Doctor, [facility] Hem Onc 02/04/2022 Office Visit Hematology and Oncology Henrik Marquez MD [address] [phone] (Isabel rk) 02/04/2022 Appointment Infusion Therapy 02/11/2022 Phlebotomy Only Hematology and Oncology Blood Doctor, [facility] Hem Onc 02/11/2022 Appointment Infusion Therapy 02/18/2022 Phlebotomy Only Hematology and Oncology Blood Doctor, [facility] Hem Onc 02/18/2022 Appointment Infusion Therapy 03/09/2022 Office Visit Hematology and Oncology Dayanna Roman, PAYROLL MANAGER [address] [phone] (Wo rk) documented as of this encounter Visit Diagnoses Not on filedocumented in this encounter Care Teams Coin Wrapping Machine Operator Relationship Specialty Start Date End Date Esau Serrano PA-C PCP - General 09/03/21 [address] [place] [address] Saray Nicholson, JOVAN Naturopathic Medicine 09/03/[address] [place] [address] documented as of this encounter
--- OUTSIDE RECORDS SUMMARY | 2022-01-24 10:48 | XMS_ITS | Encounter Summary ---
:1960 Author Organization [facility] Address [address] [place] [address] Care Team Providers Name Role Phone Esau Serrano PA-C Primary Care Provider [phone] Saray Nicholson ND Unavailable [phone] Encounter Details Date Type Department Care Team Description 11/17/2021 Orders Only [facility] Cancer Center Kathy Marquez Hematology & Oncology - A, [address] [address] [address], [place] [address] (Wo rk) Social History [...] and Oncology Blood Doctor, [facility] Hem Onc 01/28/2022 Appointment Infusion Therapy 02/04/2022 Phlebotomy Only Hematology and Oncology Blood Doctor, [facility] Hem Onc 02/04/2022 Office Visit Hematology and Oncology Henrik Marquez MD [address] [phone] (Wo rk) 02/04/2022 Appointment Infusion Therapy 02/11/2022 Phlebotomy Only Hematology and Oncology Blood Doctor, [facility] Hem Onc 02/11/2022 Appointment Infusion Therapy 02/18/2022 Phlebotomy Only Hematology and Oncology Blood Doctor, [facility] Hem Onc 02/18/2022 Appointment Infusion Therapy 03/09/2022 Office Visit Hematology and Oncology Dayanna Roman, KODI [address] [phone] (Wo rk) documented as of this encounter Visit Diagnoses Not on filedocumented in this encounter Care Teams Financial Compliance Officer Relationship Specialty Start Date End Date Esau Serrano PA-C PCP - General 09/03/21 [address] [place] [phone] Saray Nicholson ND Naturopathic Medicine 09/03/[address] [place] [address] documented as of this encounter
--- OUTSIDE RECORDS SUMMARY | 2022-01-24 10:48 | XMS_ITS | Encounter Summary ---
:1960 Author Organization [facility] Address [address] [place] [address] Care Team Providers Name Role Phone Esau Serrano PA-C Primary Care Provider [phone] Saray Nicholson ND Unavailable [phone] Encounter Details Date Type Department Care Team Description 11/26/2021 Phlebotomy Only [facility] Cancer Center Blood Doctor, ANA[facility] torres Hematology & Oncology [facility] Hem Onc ([facility]) (HCC) - Main [place] (Primary Dx) [address] [place] [address] Social History Tobacco Use Types [...] documented as of this encounter Progress Notes Mendy Mcgovern MA - 11/26/2021 1230 EDT Venipuncture performed for Elaina Per orders of Michelleluke Number of attempts 1, left ac I was supervised by Ades who was present and immediately available in the office suite. MENDY MCGOVERN MA 11/26/2021 12:31 documented in this encounter Plan of Treatment Upcoming Encounters Date Type Specialty Care Team Description 01/28/2022 Phlebotomy Only Hematology and Oncology Blood Doctor, [facility] Hem Onc 01/28/2022 Appointment Infusion Therapy 02/04/2022 Phlebotomy Only Hematology and Oncology Blood Doctor, [facility] Hem Onc 02/04/2022 Office Visit Hematology and Oncology Henrik Marquez MD 111 [facility] [address] [place] [phone] (Wo rk) 02/04/2022 Appointment Infusion Therapy 02/11/2022 Phlebotomy Only Hematology and Oncology Blood Doctor, [facility] Hem Onc 02/11/2022 Appointment Infusion Therapy 02/18/2022 Phlebotomy Only Hematology and Oncology Blood Doctor, [facility] Hem Onc 02/18/2022 Appointment Infusion Therapy 03/09/2022 Office Visit Hematology and Oncology Dayanna Roman NP 111 [facility] [address] [place] [address] (Wo rk) documented as of this encounter Procedures Procedure Name Priority Date/Time Associated Comments Diagnosis COMPREHENSIVE STAT 11/26/2021 12:40 AL amyloidosis Results for this METABOLIC PANEL EDT ([facility]) (HCC) procedure are in (ONCOLOGY USE ONLY-INC the r esults MG) section. COMPLETE BLOOD COUNT STAT 11/26/2021 12:40 AL amyloidosis R esults for this AND DIFF, CHEMO EDT ([facility]) ([facility]) procedure are in the results section. documented in this encounter Results (ABNORMAL) COMPREHENSIVE METABOLIC PANEL (ONCOLOGY USE ONLY-INC MG) (11/26/2021 12:40 EDT) Pathologist Sig nature Sodium 136 136 - 145 [facility] mmol/L LABORATORY SERVICES Potassium 4.4 3.5 - 5.0 [facility] mmol/L LABORATORY SERVICES Chloride 105 96 - 110 mmol/L [facility] CO2 Total 24 22 - 32 mmol/L [facility] Glucose 135 (H) 70 - 100 mg/dL [facility] BUN 23 10 - 26 mg/dL [facility] Creatinine 0.91 0.66 - 1.25 [facility] mg/dL LABORATORY SERVICES eGFR 96 >60 [facility] mL/min/1.73m2 LABORATORY SERVICES Total Protein 4.5 (L) 6.3 - 8.2 g/dL [facility] Albumin 2.2 (L) 3.4 - 4.9 g/dL [facility] Alkaline Phosphatase 108 38 - 126 U/L [facility] AST 36 15 - 46 U/L [facility] ALT 26 <50 U/L [facility] Bilirubin, Total <0.5 <1.4 mg/dL [facility] Calcium 7.5 (L) 8.5 - 10.5 [facility] mg/dL LABORATORY SERVICES Magnesium 2.0 1.7 - 2.8 mg/dL [facility] SERVICES Albumin/Globulin 1.0 1.0 - 2.5 [facility] Ratio LABORATORY SERVICES Anion Gap 7 5 - 14 [facility] SERVICES Specimen Blood - Venous blood (substance) Performing Organization Address City/State/ZIP Code Phon e Number [facility]OR[facility]ORY [address] [place] [address] SERVICES (ABNORMAL) COMPLETE BLOOD COUNT AND DIFF, CHEMO (11/26/2021 12:40 EDT) WBC 16.77 (H) 4.00 - 10.40 [facility] LABORATORY SERVICES RBC 5.35 4.36 - 5.78 [facility]ORATORY SERVICES Hemoglobin 16.2 13.8 - 17.3 [facility] gm/dL LABORATORY SERVICES HCT 47.9 39.5 - 50.2 % [facility] SERVICES MCV 90 81 - 95 fl [facility] SERVICES MCH 30.3 27.6 - 33.0 pg [facility] SERVICES MCHC 33.8 32.8 - 36.4 [facility] gm/dL LABORATORY SERVICES RDW-CV 14.4 (H) <14.2 % [facility]OR[facility]ORY SERVICES RDW-SD 46.1 (H) <46.0 fl [facility] SERVICES PLT 286 141 - 377 K/cmm [facility]ORY SERVICES MPV 10.1 9.5 - 12.7 fl [facility] SERVICES Neutrophils 93.3 % [facility] SERVICES Absolute Neutrophils 15.66 (H) 2.20 - 8.85 [facility] K/cmm LABORATORY SERVICES Type of Differential: Auto [facility] SERVICES Specimen Blood - Venous blood (substance) Performing Organization Address City/State/ZIP Code Phon e Number [facility] [address] [place] [address] SERVICES documented in this encounter Visit Diagnoses Diagnosis AL amyloidosis (HCC-CMS) (HCC) - Primary Other amyloidosis documented in this encounter Care Teams Patient Assessment Coordinator Relationship Specialty Start Date End Date Esau Serrano PA-C PCP - General 09/03/21 [address] [place] [phone] Saray Nicholson ND Naturopathic Medicine 09/03/[address] [place] [address] documented as of this encounter
--- OUTSIDE RECORDS SUMMARY | 2022-01-24 10:48 | XMS_ITS | Encounter Summary ---
:1960 Author Organization [facility] Address [address] [place] [address] Care Team Providers Name Role Phone Esau Serrano PA-C Primary Care Provider [phone] Saray Nicholson ND Unavailable Reason for Visit Reason Onset Date Comments Follow-up 12/21/2021 Encounter Details Date Type Department Care Team Description 12/21/2021 Telephone [facility] Cancer Center Hematology Wesley Orozco, [facility] Follow-up & Oncology - Main Ca mpus [address] [place], [place] [phone] Social History Tobacco Use Types Packs/Day Years [...] Telephone Encounter - Ernesto LINETTE Newsome - 12/21/2021 1147 EDT LYNETTE HAND Note: Reason for Call: I called the [employer] to check on the status of the Darzalex Faspro. The rep shared that it will get to us tomorrow as scheduled. I sent the pt a message with this update. Pt Centered Identified Goal: No insurance to cover tx Plan: Medication to arrive tomorrow. Jerod SUE documented in this encounter Plan of Treatment Upcoming Encounters Date Type Specialty Care Team Description 01/28/2022 Phlebotomy Only Hematology and Oncology Blood Doctor, [facility] Hem Onc 01/28/2022 Appointment Infusion Therapy 02/04/2022 Phlebotomy Only Hematology and Oncology Blood Doctor, [facility] Hem Onc 02/04/2022 Office Visit Hematology and Oncology Henrik Marquez MD [address] [phone] (Wo rk) 02/04/2022 Appointment Infusion Therapy 02/11/2022 Phlebotomy Only Hematology and Oncology Blood Doctor, [facility] Hem Onc 02/11/2022 Appointment Infusion Therapy 02/18/2022 Phlebotomy Only Hematology and Oncology Blood Doctor, [facility] Hem Onc 02/18/2022 Appointment Infusion Therapy 03/09/2022 Office Visit Hematology and Oncology Dayanna Roman, KODI 111 [facility] [address] [place] [phone] (Wo rk) documented as of this encounter Visit Diagnoses Not on filedocumented in this encounter Care Teams Turfgrass Technician Relationship Specialty Start Date End Date Esau Serrano PA-C PCP - General 09/03/[address] [place] [phone] Saray Nicholson, JOVAN Naturopathic Medicine 09/03/[address] [place] [address] documented as of this encounter
--- OUTSIDE RECORDS SUMMARY | 2022-01-24 10:48 | XMS_ITS | Encounter Summary ---
:1960 Author Organization [facility] Address [address] [place] [address] Care Team Providers Name Role Phone Esau Serrano PA-C Primary Care Provider [phone] Saray Nicholson ND Unavailable Reason for Visit Reason Comments Follow-up Encounter Details Date Type Department Care Team Description 12/09/2021 Telemedicine [facility] Cancer Center Dayanna Raman AL a myloidosis Hematology & CLINICAL FACULTY ([facility]) ([facility]) Oncology - [address] (Primary D x) [address] [place] [address] [facility] [place] [address] (Wo rk) Social History Tobacco [...] documented as of this encounter Progress Notes Dayanna Raman NP - 12/09/2021 1500 EDT Date: 12/09/21 Reason for Visit: AL amyloidosis with renal involvement, prior to Cycle 1 Day of CyBorD. The concept of ???Telemedicine?? has been described to the patient.? Patient has been informed of the anticipated benefits and possible risks.? Patient understands the information provided regarding telemedicine, has had the opportunity to ask questions about this information, and all questions have been answered to patient???s satisfaction. Patient consents for the use of telemedicine in his/her medical care and authorizes the transmission of any relevant medical information to providers and theirstaff involved in patient???s medical or mental health care. Patient understands that they may be responsible for copays, deductible or coinsurance for this service. TELEMEDICINE VIDEO VISIT Today's visit was provided through telemedicine video conferencing: I have reviewed the appropriateness of using video technology with the patient with regards to today's visit. The location of the patient : Home Patient location state: Visit Location State: [place] The location of the provider: Home Provider location state: Visit Location State: [place] The following people and their roles were present for today's visit: Appointment Provider: Dayanna Raman NP Interval History: Kimani overall feels he's tolerated treatment well. He doesn't sleep well Chele nights after receivingdexamethasone. He has noticed a 10-15 lb weight gain which seems to fluctuate. He notices this mostly in his face, abdomen and lower extremities. He is taking torsemide 5 mg daily. He does not currently own a scale. He has had some mild constipation, but this has bene manageable. No nausea or vomiting. He's had some soreness/redness at his injection sites. No neuropathy. He is occasionally lightheaded when going from sitting to standing. He has not yet received Evusheld, and would like to read aboutthis. Review of Systems: The remainder of a 10-point review of systems is otherwise negative. Heme/Onc Hx: 61 y.o. 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 He was in his USOH until ~-05/2021 when he developed uncontrolled HTN and was found to have hypoalbuminemia + nephrotic range proteinuria w/ normal Cr. He was initially worked-up in [facility] and had extensive negative immunology testing testing. He then saw nephrology at [facility] and underwent renal biopsy on 08/18/2021 which showed extra-glomerular amyloid deposits w/ anti-lambda, anti-IgM and C3 stains (confirmed AL lambda) w/ randomly arranged fibrils in EM. He was referred to heme/onc in 09/10/2021 for concern of amyloidosis. Extensive work-up showed neutrophilic leukocytosis, borderline polycythemia (Hb ~17) but no other hematologic changes. FLC [place] ~7, Lambda ~2.65 but otherwise no abnormalities [...] plasma or B cell population but showed a increased plasma cells with lambda predominance. PET showed no lymphadenopathy, plasmacytoma or bone lesions. Flow cytometry of peripheral blood showed no clonal lymphocytes. However, repeated 24h-UPEP (3rd sample) showed free monoclon al lambda light chains confirmed with pathology. He thus met AL amyloid criteria by 10/06/2021 from positive amyloid in kidney and BM + urine M-protein + nephrotic Sd. PROBLEM LIST Patient Active Problem List Diagnosis [...] REPAIR 2008 No family history on file. No outpatient medications have been marked as taking for the 12/09/21 encounter (Appointment) with Dayanna Raman NP. ALLERGIES Allergies Allergen Reactions ??? Chlorthalidone Major cramping ??? Furosemide major cramping ??? Hydrochlorothiazide Major cramping ??? Lisinopril Continuous cough DIAGNOSTIC DATA Lab Results Component Value Date WBC 10.19 12/03/2021 HGB 15.7 12/03/2021 HCT 45.4 12/03/2021 PLT 256 12/03/2021 MCV 89 12/03/2021 NEUTROABS 9.75 (H) 12/03/2021 Lab Results Component Value Date CREATININE 0.89 12/03/2021 LABALBU 2.3 (L) 12/03/2021 K 4.4 12/03/2021 NA 135 (L) 12/03/2021 AST 33 12/03/2021 ALT 22 12/03/2021 ALKPHOS 161 (H) 12/03/2021 Lab Results Component Value Date IGG 319 (L) 09/10/2021 IGA 332 09/10/2021 IGM 92 09/10/2021 SKLC 2.66 (H) 09/10/2021 SLCR 0.37 09/10/2021 Negative for monoclonal protein. Total urine protein 10/01/21: 14,000 mg/24 hrs NT-proBNP 09/10/21: 1,320 PATHOLOGY KIDNEY, [place], NEEDLE CORE BIOPSIES (08/18/2021): -Amyloidosis, AL (lambda)- type Glomerular and extra-glomerular vascular amyloid deposits are present. On immunofluorescence, the amyloid deposits show monotypic staining with anti- lambda as well as staining with C3 and the greatest immunoglobulin staining with anti-IgM. These findings suggest AL amyloidosis. [facility] which confirms that this represents AL (lambda) amyloidosis (see separate [facility] report). Electron microscopy shows deposition of small [...] involvement by plasma cell myeloma or lymphoma PHYSICAL EXAM Vitals were not performed for this video visit. General: Well- appearing, in no acute distress. Alert and oriented to person, place, date and time. He appears to have gained weight, and face appears somewhat cushingoid. HEENT: Normocephalic. Resp: No distress noted, breathing comfortably on room air. IMAGING PET CT WHOLE BODY 10/01/2021 1. [...] Atria The left atrium size is normal. ASSESSMENT 61 yo M w/ PMH of HTN, HLD, and new Dx of AL amyloidosis. Developed uncontrolled HTN + nephrotic range proteinuria in 05/2021 w/ renal biopsy on 08/18/2021 showing extra-glomerular amyloid deposits w/ anti-lambda, anti-IgM and C3 stains (confirmed AL lambda) w/randomly arranged fibrils in EM. W/U showed neutrophilic leukocytosis (WBC ~15K) w/o other hematologic changes. KLR was normal and SPEP + 24h UPEP were negative twice. Repeated M-protein testing, BMBx and PET were recommended. BM biopsy showed no evidence of clonal plasma or B cell population but showed a increased plasma cells with predominance of lambda and was (+) for congo red. PET showed no lymphadenopathy, plasmacytoma or bone lesions. PB flow cytometry showed no clonal population. Despite extensive previous negative w/u for clonal process, a repeated 24h-UPEP (3rd sample) showed free monoclonal lambda. AL amyloid Dx was established on 10/06/2021. He completed pre-treatment work up and is here for follow up. He was seen at the amyloidosis center on 10/26/21. # AL Amyloidosis??w/ Lambda M-protein + renal involvement Kimani presents prior to Cycle 1 Day 22 of Gretel-CyBorD. Overall, this has been well tolerated with someexpected side effects (insomnia post dexamethasone, mild constipation.) He has had some significant fluid retention with an increase in his weight about 10-15 lbs, he thinks, although he does not own ascale. This is likely secondary to his known nephrotic syndrome, and possibly exacerbated by dexamethasone . We'll reduce dexamethasone to 20 mg weekly with treatment. I asked that he obtain a scale and monitor daily weights. I'd recommend he take an additional torsemide 5 mg dose if his weight increases 3-5 lbs in 24 hours. We'll plan to repeat his monoclonal panel and 24 hour urine prior to next week. PLAN 1. Proceed with Cycle 1 Day 22 of Gretel-CyBorD tomorrow. Reduce dexamethasone to 20 mg po weekly. 2. To obtain scale and monitor daily weights. On torsemide 5 mg po daily. To take additional 5 mg ifweight increases 3-5 lbs in 24 hours. 2. Continue acyclovir 400 mg po bid. 3. Has lorazepam 0.5 mg tablets to use at bedtime. 4. Bowel regimen sent to patient on My Chart. 5. Continue Vitamin D supplementation. Repeat Vitamin D level in 8 weeks (early December.) 6. Remains on statin therapy for hyperlipidemia. 7. Established in the amyloidosis center. He sees nephrology locally. 8. Has not been vaccinated for COVID-19., encouraged this. We reviewed [place] information today. 9. Follow-up with Dr. Delaney prior to Cycle 3. Monoclonal panel to be drawn tomorrow. 24 hour urine prior to Cycle 2. Dayanna Raman NP (Annie) Hematology Oncology I spent a total of 40 minutes on the date of this encounter meeting with the patient and reviewing documentation/coordinating care as described in the above note. No procedures were performed at the time of the visit. documented in this encounter Plan of Treatment Upcoming Encounters Date Type Specialty Care Team Description 01/28/2022 Phlebotomy Only Hematology and Oncology Blood Doctor, [facility] Hem Onc 01/28/2022 Appointment Infusion Therapy 02/04/2022 Phlebotomy Only Hematology and Oncology Blood Doctor, [facility] Hem Onc 02/04/2022 Office Visit Hematology and Oncology Henrik Marquez MD [address] [phone] (Wo rk) 02/04/2022 Appointment Infusion Therapy 02/11/2022 Phlebotomy Only Hematology and Oncology Blood Doctor, [facility] Hem Onc 02/11/2022 Appointment Infusion Therapy 02/18/2022 Phlebotomy Only Hematology and Oncology Blood Doctor, [facility] Hem Onc 02/18/2022 Appointment Infusion Therapy 03/09/2022 Office Visit Hematology and Oncology Dayanna Roman NP 111 [facility] 2 [place] [address] (Wo rk) Pending Results Name Type Priority Associated Diagnoses Date/Ti me MONOCLONAL PROTEIN Lab Routine AL amyloidosis (HCC-CM S) 01/21/2022 12:43 EDT MONITORING PANEL, SERUM (HCC) Scheduled Orders Name Type Priority Associated Diagnoses Order S chedule MONOCLONAL PROTEIN Lab Routine AL amyloidosis (HCC-CM S) 3-4 weeks for 10 MONITORING PANEL, SERUM (HCC) Occu rrences starting 12/09/2021 unti l 12/09/2022, 3 c ompleted documented as of this encounter Visit Diagnoses Diagnosis AL amyloidosis (HCC-CMS) (HCC) - Primary Other amyloidosis documented in this encounter Discontinued Medications Medication Sig Discontinue Reason Start Date End Date Cetirizine 10 mg capsule Take by mouth. 0 12/09/2021 documented as of this encounter Care Teams External Grinder Tender Relationship Specialty Start Date End Date Esau Serrano PA-C PCP - General 09/03/21 [address] [place] [address] Saray Nicholson ND Naturopathic Medicine 09/03/[address] [place] [phone] documented as of this encounter
--- OUTSIDE RECORDS SUMMARY | 2022-01-24 10:48 | XMS_ITS | Encounter Summary ---
:1960 Author Organization [facility] Address [address] [place] [address] Care Team Providers Name Role Phone Esau Serrano PA-C Primary Care Provider [phone] Saray Nicholson ND Unavailable [phone] Encounter Details Date Type Department Care Team Description 12/17/2021 Phlebotomy Only [facility] Blood Doctor, ANALI torres Hematology & Oncology [facility] Hem Onc ([facility]) (HCC) - Main [place] (Primary Dx) [address] [place] [address] Social History Tobacco Use Types [...] encounter Progress Notes Ranjith Oliver MA - 12/17/2021 1230 EDT Venipuncture performed for anna Per orders of anna Number of attempts 1 left AC OR I was supervised by Rocael who was present and immediately available in the office suite. RANJITH OLIVER MA 12/22/2021 9:17 documented in this encounter Plan of Treatment Upcoming Encounters Date Type Specialty Care Team Description 01/28/2022 Phlebotomy Only Hematology and Oncology Blood Doctor, [facility] Hem Onc 01/28/2022 Appointment Infusion Therapy 02/04/2022 Phlebotomy Only Hematology and Oncology Blood Doctor, [facility] Hem Onc 02/04/2022 Office Visit Hematology and Oncology Henrik Marquez MD [address] [facility], [facility] [address] [place] [phone] (Wo rk) 02/04/2022 Appointment Infusion Therapy 02/11/2022 Phlebotomy Only Hematology and Oncology Blood Doctor, [facility] Hem Onc 02/11/2022 Appointment Infusion Therapy 02/18/2022 Phlebotomy Only Hematology and Oncology Blood Doctor, [facility] Hem Onc 02/18/2022 Appointment Infusion Therapy 03/09/2022 Office Visit Hematology and Oncology Dayanna Roman NP [address] [facility], [facility] [address] [place] [address] (Wo rk) documented as of this encounter Procedures Procedure Name Priority Date/Time Associated Comments Diagnosis MONOCLONAL PROTEIN Routine 12/17/2021 12:12 AL amyloidosis Res ults for this MONITORING PANEL, SERUM EDT ([facility]) ([facility]) p rocedure are in the results section. COMPREHENSIVE METABOLIC STAT 12/17/2021 12:12 AL amyloidosi s Results for this PANEL (ONCOLOGY USE EDT (HCC-CMS) ([facility]) proce dure are in ONLY-INC MG) the results section. SERUM FREE LIGHT CHAINS Routine 12/17/2021 12:12 AL amyloidosi s Results for this EDT ([facility]) ([facility]) procedure ar e in the results section. COMPLETE BLOOD COUNT STAT 12/17/2021 12:12 AL amyloidosis R esults for this AND DIFF, CHEMO EDT ([facility]) ([facility]) procedure are in the results section. IMMUNOGLOBULINS Routine 12/17/2021 12:12 AL amyloidosis Result s for this EDT ([facility]) ([facility]) procedure ar e in the results section. SPEP, INCLUDES Routine 12/17/2021 12:12 AL amyloidosis Results for this QUANTITATION OF EDT ([facility]) ([facility]) procedure are in MONOCLONAL SPIKE the results section. PROTEIN, TOTAL Routine 12/17/2021 12:12 AL amyloidosis EDT ([facility]) ([facility]) documented in this encounter Results (ABNORMAL) IMMUNOGLOBULINS (12/17/2021 12:12 EDT) Pathologist Sig nature IgG 118 (L) 610-1,616 mg/dL [facility] IgA 79 (L) 85 - 499 mg/dL [facility] IgM 54 35 - 242 mg/dL [facility] Specimen Blood - Venous blood (substance) Performing Organization Address City/[facility] Phon e Number [facility] [address] [place] [address] SERVICES SERUM FREE LIGHT CHAINS (12/17/2021 12:12 EDT) Pathologist Sig nature Pharr Free Lt Chain 0.82 0.33 - 1.94 [facility] mg/dL LABORATORY SERVICES Lambda Free Lt Chain 1.24 0.57 - 2.63 [facility] mg/dL LABORATORY SERVICES Pharr/Lambda Ratio 0.66 0.26 - 1.65 [facility] Specimen Blood - Venous blood (substance) Performing Organization Address City/[facility] Phon e Number [facility] [address] [place] [address] SERVICES (ABNORMAL) SPEP, INCLUDES QUANTITATION OF MONOCLONAL SPIKE (12/17/2021 12:12 EDT) Albumin % 46.0 (L) 55.8 - 66.1 % [facility] Albumin g/dL 2.2 (L) 3.6 - 5.2 [facility] g/dL LABORATORY SERVICES Alpha-1 % 7.1 (H) 2.9 - 4.9 % [facility] Alpha-1 g/dL 0.30 0.15 - 0.40 [facility] g/dL LABORATORY SERVICES Alpha-2 % 30.6 (H) 7.1 - 11.8 % [facility] Alpha-2 g/dL 1.40 (H) 0.50 - 1.00 [facility] g/dL LABORATORY SERVICES Beta % 12.0 8.4 - 13.1 % [facility] Beta g/dL 0.60 0.60 - 1.20 [facility] g/dL LABORATORY SERVICES Gamma % 4.3 (L) 11.1 - 18.8 % [facility] Gamma g/dL 0.20 (L) 0.60 - 1.60 [facility] g/dL LABORATORY SERVICES SPEP Comment Abnormal band, [facility] previously identified LABORATORY as:Monoclonal IgG SERVICES Pharr immunoglobulin consistent with daratumumab therapy identified on 12/10/21Comment: See scanned/supplementary report. Total Protein 4.7 (L) 6.3 - 8.2 [facility] g/dL LABORATORY SERVICES Specimen Blood - Venous blood (substance) Narrative This result has an attachment that is no t available. Performing Organization Address City/State/ZIP Code Phon e Number [facility] [address] [place] [address] SERVICES PROTEIN, TOTAL (12/17/2021 12:12 EDT) Specimen Blood - Venous blood (substance) Performing Organization Address City/State/ZIP Code Phon e Number [facility] [address] [place] [address] SERVICES (ABNORMAL) COMPREHENSIVE METABOLIC PANEL (ONCOLOGY USE ONLY-INC MG) (12/17/2021 12:12 EDT) Pathologist Sig nature Sodium 137 136 - 145 [facility] mmol/L LABORATORY SERVICES Potassium 4.4 3.5 - 5.0 [facility] mmol/L LABORATORY SERVICES Chloride 104 96 - 110 mmol/L [facility] CO2 Total 26 22 - 32 mmol/L [facility] Glucose 151 (H) 70 - 100 mg/dL [facility] BUN 23 10 - 26 mg/dL [facility] Creatinine 0.86 0.66 - 1.25 [facility] mg/dL LABORATORY SERVICES eGFR 99 >60 [facility] mL/min/1.73m2 LABORATORY SERVICES Total Protein 4.7 (L) 6.3 - 8.2 g/dL [facility] Albumin 2.4 (L) 3.4 - 4.9 g/dL [facility] Alkaline Phosphatase 111 38 - 126 U/L [facility] AST 35 15 - 46 U/L [facility] ALT 20 <50 U/L [facility] Bilirubin, Total <0.5 <1.4 mg/dL [facility] Calcium 7.5 (L) 8.5 - 10.5 [facility] mg/dL LABORATORY SERVICES Magnesium 1.9 1.7 - 2.8 mg/dL [facility] Albumin/Globulin 1.0 1.0 - 2.5 [facility] Ratio LABORATORY SERVICES Anion Gap 7 5 - 14 [facility] Specimen Blood - Venous blood (substance) Performing Organization Address City/State/[facility] Code Phon e Number [facility] [address] [place] [address] SERVICES (ABNORMAL) COMPLETE BLOOD COUNT AND DIFF, CHEMO (12/17/2021 12:12 EDT) WBC 14.12 (H) 4.00 - 10.[address] [facility] LABORATORY SERVICES RBC 4.94 4.36 - 5.78 [facility] M/[facility] LABORATORY SERVICES Hemoglobin 15.4 13.8 - 17.3 [facility] gm/dL LABORATORY SERVICES HCT 44.3 39.5 - 50.2 % [facility] SERVICES MCV 90 81 - 95 fl [facility] MCH 31.2 27.6 - 33.0 pg [facility] MCHC 34.8 32.8 - 36.4 [facility] gm/dL LABORATORY SERVICES RDW-CV 15.7 (H) <14.2 % [facility] RDW-SD 49.2 (H) <46.0 fl [facility] PLT 234 141 - 377 /m [facility] MPV 11.0 9.5 - 12.7 fl [facility] Neutrophils 94.8 % [facility] Absolute Neutrophils 13.38 (H) 2.20 - 8.85 [facility] K/cmm LABORATORY SERVICES Type of Differential: Auto [facility] Specimen Blood - Venous blood (substance) Performing Organization Address City/State/ZIP Code Phon e Number [facility] [address] [place] [address] SERVICES documented in this encounter Visit Diagnoses Diagnosis AL amyloidosis (HCC-CMS) (HCC) - Primary Other amyloidosis documented in this encounter Care Teams Power Switchboard Operator Relationship Specialty Start Date End Date Esau Serrano PA-C PCP - General 09/03/21 [address] [place] [address] Saray Nicholson ND Naturopathic Medicine 09/03/[address] [place] [id number] documented as of this encounter
--- OUTSIDE RECORDS SUMMARY | 2022-01-24 10:48 | XMS_ITS | Encounter Summary ---
:1960 Author Organization [facility] Address [address] [place] [address] Care Team Providers Name Role Phone Esau Serrano PA-C Primary Care Provider [phone] Saray Nicholson ND Unavailable [phone] Encounter Details Date Type Department Care Team Description 12/24/2021 Orders Only [facility] Hematology & Georgina Thompson RN Oncology - [address] [phone] Social History Tobacco Use Types Packs/Day Years [...] Phlebotomy Only Hematology and Oncology Blood Doctor, [facility] Hem Onc 01/28/2022 Appointment Infusion Therapy 02/04/2022 Phlebotomy Only Hematology and Oncology Blood Doctor, [facility] Hem Onc 02/04/2022 Office Visit Hematology and Oncology Henrik Marquez MD [address] [facility], [facility] [address] [place] [phone] (Wo rk) 02/04/2022 Appointment Infusion Therapy 02/11/2022 Phlebotomy Only Hematology and Oncology Blood Doctor, [facility] Hem Onc 02/11/2022 Appointment Infusion Therapy 02/18/2022 Phlebotomy Only Hematology and Oncology Blood Doctor, [facility] Hem Onc 02/18/2022 Appointment Infusion Therapy 03/09/2022 Office Visit Hematology and Oncology Dayanna Roman NP [address] [facility], [facility] [address] [place] [phone] (Wo rk) documented as of this encounter Visit Diagnoses Not on filedocumented in this encounter Care Teams Health Technician Hearing Relationship Specialty Start Date End Date Esau Serrano PA-C PCP - General 09/03/[address] [place] [phone] Saray Nicholson ND Naturopathic Medicine 09/03/[address] [place] [phone] documented as of this encounter
--- OUTSIDE RECORDS SUMMARY | 2022-01-24 10:49 | XMS_ITS | Encounter Summary ---
:[address] [facility] Address [address] [place] [address] Care Team Providers Name Role Phone Esau Serrano PA-C Primary Care Provider [phone] Saray Nicholson ND Unavailable [phone] Reason for Visit Reason Onset Date Comments Appointment Related 11/08/2021 Encounter Details Date Type Department Care Team Description 11/08/2021 Telephone [facility] Cancer Center Jacquelin Marquez intment Related Hematology & Oncology Franco Pace [address] [address] [place], [place] [address] (Wo rk) Social History Tobacco [...] this encounter Miscellaneous Notes Telephone Encounter - MichelleGeeta estrada - 11/08/2021 1122 EDT Spoke with patient & scheduled INFs for C1; patient confirmed documented in this encounter Plan of Treatment Upcoming Encounters Date Type Specialty Care Team Description 01/28/2022 Phlebotomy Only Hematology and Oncology Blood Doctor, [facility] Hem Onc 01/28/2022 Appointment Infusion Therapy 02/04/2022 Phlebotomy Only Hematology and Oncology Blood Doctor, [facility] Hem Onc 02/04/2022 Office Visit Hematology and Oncology Henrik Marquez MD [address] [address] (Wo rk) 02/04/2022 Appointment Infusion Therapy 02/11/2022 Phlebotomy Only Hematology and Oncology Blood Doctor, [facility] Hem Onc 02/11/2022 Appointment Infusion Therapy 02/18/2022 Phlebotomy Only Hematology and Oncology Blood Doctor, [facility] Hem Onc 02/18/2022 Appointment Infusion Therapy 03/09/2022 Office Visit Hematology and Oncology Dayanna Roman, KODI [address] [facility] [address] [place] [address] (Wo rk) documented as of this encounter Visit Diagnoses Not on filedocumented in this encounter Care Teams Deputy Sheriff Custody Relationship Specialty Start Date End Date Esau Serrano PA-C PCP - General 09/03/21 [address] [place] [address] Saray Nicholson ND Naturopathic Medicine 09/03/[address] [place] [phone] documented as of this encounter
--- OUTSIDE RECORDS SUMMARY | 2022-01-24 10:49 | XMS_ITS | Encounter Summary ---
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 dexAMETHasone (DECADRON) Take 10 tablets (40 100 Tablet 1 4 mg tablet mg) orally once a week on chemotherapy days. Take with food. prochlorperazine Take 1 Tablet by 30 Tablet 1 11/04/2021 (COMPAZINE) 10 mg tablet mouth every 6 hours as needed for Nausea. montelukast (SINGULAIR) Take one tablet 30 Tablet 0 022 12/08/2021 10 mg tablet orally on the day before, day of, and day after chemotherapy. LORazepam (ATIVAN) 0.5 Take 2 Tablets by 30 Tablet 1 202101/11/2022 mg tablet mouth at bedtime as needed for Anxiety. Daily Max: 1 mg documented in this encounter Progress Notes Dayanna Raman, KODI - 11/04/2021 1420 EDT Date: 11/04/21 Reason for Visit: AL amyloidosis with renal involvement, to start Gretel-CyBorD. The concept of ???Telemedicine?? has been described [...] Home Patient location state: Visit Location State: [place] The location of the provider: Home Provider location state: Visit Location State: [place] The following people and their roles were present for today's visit: Appointment Provider: Dayanna Raman NP Interval History: Kimani returns with his and daughter for follow-up. He is tentatively scheduled to begin treatmenttomorrow, however he does not have insurance, so there's still some confusion about how this will bereimbursed. Our social work team and hospital administration has been involved. Overall, he reports that he's feeling well. He has taken dexamethasone in the past (for a period of 4 days) and then crashed. He also had some insomnia and lorazepam has worked well for him (this wasprescribed initially by Dr. Delaney.) He notes that at this point, he has very minimal swelling. He has no baseline neuropathy. He occasionally feels lightheaded, but his antihypertensive medicationswere discontinued as his blood pressure has been running on the lower side. He continues to experience a dry cough (which is what initially prompted his workup.) He does not feel familiar with his treatment regimen and would like to review the regimen and expected side effects today. Of note, he is not vaccinated against COVID-19. He did get COVID-19 at one point and had mild symptoms. He feels somewhat ambivalent about vaccination. He would be open to receiving Evusheld. Review of Systems: The remainder of a [...] normal Cr. He was initially worked-up in [facility] and had extensive negative immunology testing testing. He then saw nephrology at [facility] and underwent renal biopsy on 08/18/2021 which showed extra-glomerular amyloid deposits w/ anti-lambda, anti-IgM and C3 stains (confirmed AL lambda) w/ randomly arranged fibrils in EM. He was referred to heme/onc in 09/10/2021 for concern of amyloidosis. Extensive work-up showed neutrophilic leukocytosis, borderline polycythemia (Hb ~17) but no other hematologic changes. FLC Brule ~7, Lambda ~2.65 but otherwise no abnormalities [...] Procedure Laterality Date ??? UMBILICAL HERNIA REPAIR 2007 No family history on file. Outpatient Medications Marked as Taking for the 11/04/21 encounter (Telemedicine) with Dayanna Raman NP Medication Sig Dispense Refill ??? atorvastatin (LIPITOR) 80 mg tablet Take 80 mg by mouth daily. ??? Cetirizine 10 mg capsule Take by mouth. ??? ergocalciferol (VITAMIN D2) 1,250 mcg (50,000 unit) capsule Take 50,000 Units by mouth every 7 days. ??? torsemide (DEMADEX) 5 mg tablet Take 1 Tablet by mouth daily. 30 Tablet 0 ALLERGIES Allergies Allergen Reactions ??? Chlorthalidone Major cramping ??? Furosemide major cramping ??? Hydrochlorothiazide Major cramping ??? Lisinopril Continuous cough DIAGNOSTIC DATA Lab Results Component Value Date WBC 14.40 (H) 09/22/2021 HGB 16.5 09/22/2021 HCT 48.4 09/22/2021 PLT 342 09/22/2021 MCV 89 09/22/2021 NEUTROABS 9.94 (H) 09/22/2021 Lab Results Component Value Date CREATININE 1.11 10/20/2021 LABALBU 2.4 (L) 10/20/2021 K 4.0 10/20/2021 NA 135 (L) 10/20/2021 AST 34 10/20/2021 ALT 18 10/20/2021 ALKPHOS 93 10/20/2021 Lab Results Component Value Date IGG 319 (L) 09/10/2021 IGA 332 09/10/2021 IGM 92 09/10/2021 SKLC 2.66 (H) 09/10/2021 SLCR 0.37 09/10/2021 Negative for monoclonal protein. Total urine protein 10/01/21: 14,000 mg/24 hrs NT-proBNP 09/10/21: 1,320 PATHOLOGY KIDNEY, TORRES MARTINEZ, NEEDLE CORE BIOPSIES (08/18/2021): -Amyloidosis, AL (lambda)- type Glomerular and extra-glomerular vascular amyloid deposits are present. On immunofluorescence, the amyloid deposits show monotypic staining with anti- lambda as well as staining with C3 and the greatest immunoglobulin staining with anti-IgM. These findings suggest AL amyloidosis. [facility] amyloidosis which confirms that this represents AL (lambda) amyloidosis (see separate [place] report). Electron microscopy shows deposition of small [...] oriented to person, place, date and time. HEENT: Normocephalic. Resp: No distress noted, breathing [...] Amyloidosis??w/ Lambda M-protein + renal involvement Kimani has been recommended to start Gretel-CyBorD therapy. The plan was to initiate this tomorrow (11/05)but we'll need to confirm we are able to do this as he has no current insurance. Our social work team and hospital administration has been involved. At today's visit, we reviewed the Gretel-CyBorD regimen and I reviewed medication information, expected side effects and potential toxicity. He will receive a formal chemotherapy teach at the time of his treatment. I prescribed him supportive medications including acyclovir, prochlorperazine, montelukast. I also prescribed dexamethasone, which we discussed should be taken first thing in the morning on treatment days, with food. I also refilled lorazepam per his request (previously prescribed by Dr. Delaney) however I counseled him this should not be used regularly and can be habit forming. Kimani is not vaccinated for COVID-19, and we discussed that we would recommend he do so as soon as possible. We discussed [place], and he states he would be amenable to receiving this. PLAN 1. To initiate Gretel-CyBorD as soon as possible. Consider Rx for oral cyclophosphamide. Dexamethasoneis 40 mg po weekly. 2. To start acyclovir 400 mg po bid. 3. Rx for montelukast sent to pharmacy. 4. Lorazepam 0.5 mg hs sent to pharmacy. Counseled patient that this should be used sparingly. 5. Continue Vitamin D supplementation. Repeat Vitamin D level in 8 weeks (early December.) 6. To see ENT on 11/10 given continued dry cough. 7. Remains on statin therapy for hyperlipidemia. 8. Followed by nephrology. 9. Established in the amyloidosis center 10. Has not been vaccinated for COVID-19., encouraged this. Consider [place] in the near future. 11. Follow-up with us prior to Cycle 2. 12. Social work currently involved. Dayanna Raman NP (Annie) Hematology Oncology I spent a total of 50 minutes on the date of this encounter [...] and Oncology Henrik Marquez MD [address] [address] (Wo rk) 02/04/2022 Appointment Infusion Therapy 02/11/2022 Phlebotomy Only Hematology and Oncology Blood Doctor, [facility] Hem Onc 02/11/2022 Appointment Infusion Therapy 02/18/2022 Phlebotomy Only Hematology and Oncology Blood Doctor, [facility] Hem Onc 02/18/2022 Appointment Infusion Therapy 03/09/2022 Office Visit Hematology and Oncology Dayanna Roman NP [address] [address] (Wo rk) documented as of this encounter Visit Diagnoses Diagnosis AL amyloidosis (HCC-CMS) (HCC) - Primary Other amyloidosis documented in this encounter Discontinued Medications Medication Sig Discontinue Reason Start Date End Date cholecalciferol, Take 2,000 Units by 07/12/202110/22 Vitamin D3, 50 mcg mouth daily. (2,000 unit) tablet rosuvastatin (CRESTOR) Take 40 mg by mouth 07/07/2021 11/04/2021 40 mg tablet daily. riboflavin, vitamin B2, riboflavin (vitamin B2) 11/04/2021 (B-2) 100 mg tablet 1 cap 400mg/day tablet documented as of this encounter Historical Medications This list may reflect changes made after this encounter. Medication Sig Dispensed Refills Start Date End Date ergocalciferol (VITAMIN D2) Take 50,000 Units 0 1,250 mcg (50,000 unit) by mouth every 7 capsule days. atorvastatin (LIPITOR) 80 Take 80 mg by 0 mg tablet mouth daily. Cetirizine 10 mg capsule Take by mouth. 0 12/09/2021 added in this encounter Care Teams Spoon Maker Relationship Specialty Start Date End Date Esau Serrano PA-C PCP - General 09/03/21 [address] [place] [address] Saray Nicholson, JOVAN Naturopathic Medicine 09/03/[address] [place] [id number] documented as of this encounter
--- OUTSIDE RECORDS SUMMARY | 2022-01-24 10:49 | XMS_ITS | Encounter Summary ---
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 The patient underwent renal biopsy on??08/18/2021 which showed extra-glomerular amyloid dep osits w/ anti-lambda, anti-IgM and C3 stains (confirmed AL lambda) with randomly arranged fibrils in EM. He is now being managed by ematology. Records indicate that he has been prescribed to zeny finch Darzalex Faspro (Daratumumab/Hyaluronidase), immunotherapy agent, a CD38 inhibitor. Encounter Details Date Type Department Care Team Description 11/04/2021 Telemedicine [facility] OnNavdeep oliva, Nep hrotic syndrome Nephrology - S with pathological [place] [facility] lesion in kidney 1 [facility] (Primary Dx) [place] [address] Rehab, [place] [address] Social History Tobacco Use Types Packs/Day Years [...] Sign Reading Time Taken Comments Blood Pressure - - Pulse - - Temperature - - Respiratory Rate - - Oxygen Saturation - - Inhaled Oxygen Concentration - - Weight - - Height 181.6 cm (5' 11.5) 11/04/2021 0908 EDT Body Mass Index - - documented in [...] making decisions? documented as of this encounter Patient Instructions Patient InstructionsNavdeep Downing MD - 11/04/2021 9:40 EDT For now, he will continue disease management with Hematology and we will only get involved if we areconsulted. No new nephrology appointment at this time. documented in this encounter Progress Notes Navdeep Downing MD - 11/04/2021 0940 EDT TELEMEDICINE VIDEO VISIT Today's visit was provided through telemedicine video conferencing: I have reviewed the appropriateness of using video technology with the patient with regards to today's visit. The location of the patient : Home Patient location state: Visit Location State: [place] The location of the provider: Home_Office Provider location state: Visit Location State: [place] The following people and their roles were present for today's visit: Appointment Provider: Navdeep Downing MD Macaulay Onuigbo, MD The concept of ???Telemedicine?? has been described [...] copays, deductible or coinsurance for this service. This visit is being conducted by telemedicine using Zoom video (HIPPA compliant) with the patient athome and provider in their office. This is to protect the patient from exposure to potentially hazardous environmental conditions. The patient has given consent for this communication. The patient, provider and MA were present. The telemedicine session lasted 28 minutes. 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 The patient underwent renal biopsy on??08/18/2021 which showed extra-glomerular amyloid deposits w/ anti-lambda, anti-IgM and C3 stains (confirmed AL lambda) with randomly arranged fibrils in EM. He is now being managed by Hematology. Records indicate that he has been prescribed to receive Darzalex Faspro (Daratumumab/Hyaluronidase), immunotherapy agent, a CD38 inhibitor. 11/04/2021 Chief Complaint Patient presents with ??? 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 The patient underwent renal biopsyon??08/18/2021 which showed extra-glomerular amyloid deposits w/ anti-lambda, anti-IgM and C3 stains (confirmed AL lambda) with randomly arranged fibrils in EM. He is now being managed by Hematology. Records indicate that he has been prescribed to receive Darzalex Faspro (Daratumumab/Hyaluronidase), immunotherapy agent, a CD38 inhibitor. HPI As above. He was seen on Zoom in the company of the . He was in good spirits and reported that he will potentially be starting chemotherapy soon for 3 cycles and this will then be followed by plans for s stem cell transplant. He is only on vitamin D2, 1.25 mg/d, a statin and Torsemide 5 mg/d. The leg swelling is almost all gone. No new systemic symptoms. His weight has dropped from 260 lb to 245 lb. BP this morning was 110/80 mm Hg and he is off all antihypertensive agents. Patient Active Problem List Diagnosis ??? Essential hypertension ??? Hyperlipidemia ??? Hypertensive chronic kidney disease with stage 1 through stage 4 chronic kidney disease, or unspecified chronic kidney disease ??? Nephrotic syndrome with unspecified morphologic changes ??? AL amyloidosis (HCC-CMS) (HCC) Past Medical History: Diagnosis Date ??? Chronic kidney disease ??? Hyperlipidemia ??? Hypertension Past Surgical History: Procedure Laterality Date ??? UMBILICAL HERNIA REPAIR 2007 Current Outpatient Medications Medication ??? cholecalciferol, Vitamin D3, 50 mcg (2,000 unit) tablet ??? COQ10, UBIQUINOL, ORAL ??? dexAMETHasone (DECADRON) 4 mg tablet ??? NONFORMULARY ??? riboflavin, vitamin B2, (B-2) 100 mg tablet tablet ??? rosuvastatin (CRESTOR) 40 mg tablet ??? soybean, fermented (NATTOKINASE) 50 mg capsule ??? torsemide (DEMADEX) 5 mg tablet ??? warfarin (COUMADIN) 5 mg tablet No current facility-administered medications for this visit. Facility-Administered Medications Ordered in Other Visits Medication Route Frequency ??? fentaNYL citrate (PF) 50 mcg/mL injection ??? heparin 1,000 unit/mL injection ??? heparin 1,000 unit/mL injection ??? midazolam (PF) (VERSED) 1 mg/mL injection ??? nitroglycerin 100 mcg/mL syringe ??? verapamil (ISOPTIN) 2.5 mg/mL injection ??? verapamil (ISOPTIN) 2.5 mg/mL injection Allergies Allergen Reactions ??? Chlorthalidone Major cramping ??? Furosemide major cramping ??? Hydrochlorothiazide Major cramping ??? Lisinopril Continuous cough Social History Tobacco Use ??? Smoking status: Never Smoker ??? Smokeless tobacco: Never Used Vaping Use ??? Vaping Use: Never used Substance Use Topics ??? Alcohol use: Not Currently Comment: nothing for last 6 months ??? Drug use: Never No family history on file. REVIEW OF SYSTEMS A ten point ROS was performed and was negative except for pertinent positives in the HPI Ht 181.6 cm (71.5) BMI 33.96 kg/m?? Zoom visit. Navdeep Downing MD 11/04/2021 9:14 Lab Results Component Value Date K 4.0 10/20/2021 K 4.1 09/10/2021 NA 135 (L) 10/20/2021 NA 138 09/10/2021 CL 105 10/20/2021 CL 105 09/10/2021 CO2 28 10/20/2021 CO2 25 09/10/2021 TBIL <0.5 10/20/2021 TBIL <0.5 09/10/2021 AST 34 10/20/2021 AST 42 09/10/2021 ALT 18 10/20/2021 ALT 29 09/10/2021 LABALBU 2.4 (L) 10/20/2021 LABALBU 2.3 (L) 09/10/2021 TP 5.7 (L) 10/20/2021 TP 5.0 (L) 09/10/2021 TP 5.0 (L) 09/10/2021 CREATININE 1.11 10/20/2021 CREATININE 1.08 09/10/2021 CALCGFR 76 10/20/2021 CALCGFR 79 09/10/2021 CALCIUM 7.3 (L) 10/20/2021 CALCIUM 7.9 (L) 09/10/2021 SERGLU 101 (H) 10/20/2021 SERGLU 84 09/10/2021 Lab Results Component Value Date WBC 14.40 (H) 09/22/2021 WBC 14.56 (H) 09/10/2021 RBC 5.45 09/22/2021 RBC 5.49 09/10/2021 HGB 16.5 09/22/2021 HGB 16.8 09/10/2021 HCT 48.4 09/22/2021 HCT 48.7 09/10/2021 MCV 89 09/22/2021 MCV 89 09/10/2021 MCH 30.3 09/22/2021 MCH 30.6 09/10/2021 MCHC 34.1 09/22/2021 MCHC 34.5 09/10/2021 RDWCV 14.4 (H) 09/22/2021 RDWCV 14.2 (H) 09/10/2021 RDWSD 46.3 (H) 09/22/2021 RDWSD 45.3 09/10/2021 PLT 342 09/22/2021 PLT 374 09/10/2021 No results found for: WBCU, RBCU, SQUAEPIU, RENEPIU, BACTERIA, CRYST, LABCAST, UACOMMENT, COMUAUCMI Lab Results Component Value Date COLOR Yellow 07/23/2021 CLARITYU Clear 07/23/2021 GLUCOSEU Negative 07/23/2021 BILIRUBINUR Negative 07/23/2021 KETONES Negative 07/23/2021 LABSPEC 1.020 07/23/2021 BLOODU Negative 07/23/2021 PHUR 7.0 07/23/2021 PROTEINUA 3+ (A) 07/23/2021 NITRITE Negative 07/23/2021 LEUKESTER Negative 07/23/2021 ASSESSMENT & PLAN 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 He is now being managed by Hematology. Records indicate that he has been prescribed to receive Darzalex Faspro (Daratumumab/Hyaluronidase), immunotherapy agent, a CD38 inhibitor. Extensive work-up showed neutrophilic leukocytosis (WBC??~15K) and borderline polycythemia (Hb ~17) but no other hematologic changes. FLC showed [place] ~7 and Lambda ~2.65 but otherwise no abnormalities. KLR was normal and??SPEP??+ 24h??UPEP??were??negative for monoclonal protein twice.??Baseline evaluation showed??fatigue??for ~6 months??but??no other complaints except for BLE edema. He had no other constitutional Sx. At initial evaluation, he was??intolerant to many antihypertensives and had started PPx AC w/ warfarin by nephrology. Current labs from 10/20/2021: Na 135, K 4.0, creatinine 1.11, albumin 2.4 g/dL. Albumin was as low as1.5 on 08/17/2021. Creatinine was as low as 0.90 on 07/19/2021. Total 24-hr urine protein was 14.9 g on 10/01/21, volume 2500 cc. UPC ratio was 5.96 on 08/17/2021. Current listed weight was 246 lb 14.4 oz. ?? Intolerance to Chlorthalidone (major cramping), Furosemide (major cramping), Hydrochlorothiazide (major cramping) and Lisinopril (continous cough) had been previously reported by the patient. He is currently tolerating low dose Torsemide. ?? For now, he will continue disease management with Hematology and we will only get involved if we areconsulted. Thanks to the Hematology Service for excellent follow up. ?? Edema - Alternative diuretics to use here would include Torsemide, Amiloride, Spironolactone, Acetazolamide, Metolazone and/or Ethacrynic acid. The implications of the reported major cramping with the above listed diuretics is unclear. It will be appropriate to recheck magnesium and phosphorus, together with the other electrolytes. Magnesium was 2 mg/dL in August 2021; He is currently tolerating low dose Torsemide, 5 mg/d and edema is almost resolved. Lately, in October 2021, he was reported to have tried low dose Torsemide about 10/17/2021 as he had earlier reported allergies to many diuretics. Hypertension - Blood pressure to be monitored and followed by the PCP. It is presently normal and heis only on the low dose Torsemide. documented in this encounter Plan of Treatment Upcoming Encounters Date Type Specialty Care Team Description 01/28/2022 Phlebotomy Only Hematology and Oncology Blood Doctor, [facility] Hem Onc 01/28/2022 Appointment Infusion Therapy 02/04/2022 Phlebotomy Only Hematology and Oncology Blood Doctor, [facility] Hem Onc 02/04/2022 Office Visit Hematology and Oncology Henrik Marquez MD [address] [phone] (Wo rk) 02/04/2022 Appointment Infusion Therapy 02/11/2022 Phlebotomy Only Hematology and Oncology Blood Doctor, [facility] Hem Onc 02/11/2022 Appointment Infusion Therapy 02/18/2022 Phlebotomy Only Hematology and Oncology Blood Doctor, [facility] Hem Onc 02/18/2022 Appointment Infusion Therapy 03/09/2022 Office Visit Hematology and Oncology Dayanna Roman, KODI [address] [place] [address] (Wo rk) documented as of this encounter Visit Diagnoses Diagnosis Nephrotic syndrome with pathological les ion in kidney - Primary Nephrotic syndrome with unspecified path ological lesion in kidney documented in this encounter Discontinued Medications Medication Sig Discontinue Reason Start Date End Date COQ10, UBIQUINOL, ORAL coQ10 (ubiquinol) Patient Stopped 11/04/2021 200mg capsule /day Taking NONFORMULARY 2 times daily. HTN Patient Stopped 2021 Fluid Taking warfarin (COUMADIN) 5 Take 5 mg by mouth Patient Stopped 11/04/2021 mg tablet daily. 5mg, and Taking 2.5mg every other day soybean, fermented Nattokinase Patient Stopped 2021 (NATTOKINASE) 50 mg 1 cap (100mg) 1xday-to prevent clots Taking capsule dexAMETHasone Take 10 Tablets by Patient Stopped 10/12/202111/04 (DECADRON) 4 mg tablet mouth daily. Take 10 Taking tablets (40 mg) daily for 4 days documented as of this encounter Care Teams Caddie Supervisor Relationship Specialty Start Date End Date Esau Serrano PA-C PCP - General 09/03/21 [address] [place] [address] Saray Nicholson ND Naturopathic Medicine 09/03/[address] [place] [address] documented as of this encounter
--- OUTSIDE RECORDS SUMMARY | 2022-01-24 10:49 | XMS_ITS | Encounter Summary ---
:1960 Author Organization [facility] Address [address] [place] [address] Care Team Providers Name Role Phone Esau Serrano PA-C Primary Care Provider [phone] Saray Nicholson ND Unavailable Reason for Visit Reason Onset Date Comments Follow-up 11/09/2021 Encounter Details Date Type Department Care Team Description 11/09/2021 Telephone [facility] Cancer Center Hematology Wesley Orozco, [facility] Follow-up & Oncology - Main Ca mpus [address] [place] [address] Social History Tobacco Use Types [...] Telephone Encounter - Jerod Orozco LICSW - 11/09/2021 9789 EDT LYNETTE HAND Note: Reason for Call: [facility] [employer] [facility] sent me a fax with an approval letter for Darzalex Faspro. I called the [facility] to clarify how we're supposed to use the assistance. The rep explained that the directions theylisted on the approval letter are wrong. They require our facility to complete a pharmacy request form for the medication, they will then mail the medication to us. This need to happen each time he needs tx. I sent the pt a message updating him that he was approved. I explained that I'm waiting for the form and I will update him once I know what the next steps will be. Pt Centered Identified Goal: Financial assistance for Darzalex Faspro Plan: Waiting to receive the pharmacy request form. Jerod SUE ADDENDUM 9:05 Pharmacy request form was received. Coordinating w/ pharmacy, primary RN and provider around how to complete the form. documented in this encounter Plan of Treatment Upcoming Encounters Date Type Specialty Care Team Description 01/28/2022 Phlebotomy Only Hematology and Oncology Blood Doctor, [facility] Hem Onc 01/28/2022 Appointment Infusion Therapy 02/04/2022 Phlebotomy Only Hematology and Oncology Blood Doctor, [facility] Hem Onc 02/04/2022 Office Visit Hematology and Oncology Henrik Marquez MD [address] [address] (Wo rk) 02/04/2022 Appointment Infusion Therapy 02/11/2022 Phlebotomy Only Hematology and Oncology Blood Doctor, [facility] Hem Onc 02/11/2022 Appointment Infusion Therapy 02/18/2022 Phlebotomy Only Hematology and Oncology Blood Doctor, [facility] Hem Onc 02/18/2022 Appointment Infusion Therapy 03/09/2022 Office Visit Hematology and Oncology Dayanna Roman NP 111 [facility] [address] [place] [address] (Wo rk) documented as of this encounter Visit Diagnoses Not on filedocumented in this encounter Care Teams Licensed Mental Health Professional Relationship Specialty Start Date End Date Esau Serrano PA-C PCP - General 09/03/21 [address] [place] [address] Saray Nicholson, JOVAN Naturopathic Medicine 09/03/[address] [place] [address] documented as of this encounter
--- OUTSIDE RECORDS SUMMARY | 2022-01-24 10:49 | XMS_ITS | Encounter Summary ---
:1960 Author Organization [facility] Address [address] [place] [address] Care Team Providers Name Role Phone Esau Serrano PA-C Primary Care Provider [phone] Saray Nicholson ND Unavailable [phone] Reason for Visit Reason Onset Date Comments New/Evolving Symptoms 10/17/2021 Encounter Details Date Type Department Care Team Description 10/17/2021 Telephone [facility] Cancer Center Татьяна Lam MD New/Evolving Symptoms Hematology & Oncology [address] [phone] (Wo rk) Social History Tobacco Use Types [...] Refills Start Date End Date torsemide (DEMADEX) 5 mg Take 1 Tablet by 30 Tablet 0 10/1711/16/2021 tablet mouth daily. documented in this encounter Miscellaneous Notes Telephone Encounter - Татьяна Lam MD - 10/17/20212023 EDT Called patient to follow-up on symptoms. States that he feels better today. Swelling has improved but still with lower extremity swelling. Has allergies to many diuretics but has not tried torsemide. Unsure if he wants to try prior to appointment with Dr. Delaney. Prescribed low dose of torsemide incase patient would like to try. Татьяна Lam MD 10/17/2021 21:11 documented in this encounter Plan of Treatment Upcoming Encounters Date Type Specialty Care Team Description 01/28/2022 Phlebotomy Only Hematology and Oncology Blood Doctor, [facility] Hem Onc 01/28/2022 Appointment Infusion Therapy 02/04/2022 Phlebotomy Only Hematology and Oncology Blood Doctor, [facility] Hem Onc 02/04/2022 Office Visit Hematology and Oncology Henrik Marquez MD [address] [phone] (Wo pato) 02/04/2022 Appointment Infusion Therapy 02/11/2022 Phlebotomy Only Hematology and Oncology Blood Doctor, [facility] Hem Onc 02/11/2022 Appointment Infusion Therapy 02/18/2022 Phlebotomy Only Hematology and Oncology Blood Doctor, [facility] Hem Onc 02/18/2022 Appointment Infusion Therapy 03/09/2022 Office Visit Hematology and Oncology Dayanna Roman NP [address] [phone] (Wo rk) documented as of this encounter Visit Diagnoses Not on filedocumented in this encounter Care Teams A Operator Relationship Specialty Start Date End Date Esau Serrano PA-C PCP - General 09/03/21 [address] [place] [address] Saray Nicholson ND Naturopathic Medicine 09/03/[address] [place] [phone] documented as of this encounter
--- OUTSIDE RECORDS SUMMARY | 2022-01-24 10:49 | XMS_ITS | Encounter Summary ---
:1960 Author Organization [facility] Address [address] [place] [address] Care Team Providers Name Role Phone Esau Serrano PA-C Primary Care Provider [phone] Saray Nicholson ND Unavailable [phone] Reason for Visit Reason Onset Date Comments Critical Value 10/20/2021 Encounter Details Date Type Department Care Team Description 10/20/2021 Telephone [facility] Cancer Center Kathy Marquez Critical Value Hematology & Oncology - A, [address] [address] [place], [place] [address] (Wo rk) Social History Tobacco [...] this encounter Miscellaneous Notes Telephone Encounter - Consuelo Atkins RN - 10/21/2021 1107 EDT Pt was examined by Dr. Delaney in clinic on the day of this result. elephone Encounter - Chelly Kaur - 10/20/2021 1444 EDT Non Clinical Staff notified with Critical Results Ordering Provider: NIRMALA Date and Time Test was Performed: 10/20/21#13:30PM Results: TROPONIN 0.173 Result Read Back and Verified: yes Nursing/Provider Notified:YES Nursing/Provider Name: ALBERT Date: 10/20/21 Time: 2:45 PM documented in this encounter Plan of Treatment Upcoming Encounters Date Type Specialty Care Team Description 01/28/2022 Phlebotomy Only Hematology and Oncology Blood Doctor, [facility] Hem Onc 01/28/2022 Appointment Infusion Therapy 02/04/2022 Phlebotomy Only Hematology and Oncology Blood Doctor, [facility] Hem Onc 02/04/2022 Office Visit Hematology and Oncology Henrik Marquez MD [address] [phone] (Wo rk) 02/04/2022 Appointment Infusion Therapy 02/11/2022 Phlebotomy Only Hematology and Oncology Blood Doctor, [facility] Hem Onc 02/11/2022 Appointment Infusion Therapy 02/18/2022 Phlebotomy Only Hematology and Oncology Blood Doctor, [facility] Hem Onc 02/18/2022 Appointment Infusion Therapy 03/09/2022 Office Visit Hematology and Oncology Dayanna Roman NP [address] [phone] (Wo rk) documented as of this encounter Visit Diagnoses Not on filedocumented in this encounter Care Teams Nursing Unit Coordinator Relationship Specialty Start Date End Date Esau Serrano PA-C PCP - General 09/03/21 [address] [place] [address] Saray Nicholson, JOVAN Naturopathic Medicine 09/03/[address] [place] [address] documented as of this encounter
--- OUTSIDE RECORDS SUMMARY | 2022-01-24 10:49 | XMS_ITS | Encounter Summary ---
:1960 Author Organization [facility] Address [address] [place] [address] Care Team Providers Name Role Phone Esau Serrano PA-C Primary Care Provider [phone] Saray Nicholson ND Unavailable [phone] Reason for Visit Reason Onset Date Comments Pharmacy 11/04/2021 Encounter Details Date Type Department Care Team Description 11/04/2021 Telephone [facility] Cancer Center Mini Raman NP Pharmacy Hematology & Oncology - [address] [place], [place] [phone] [place] [phone] (Wo rk) Social History Tobacco Use [...] Telephone Encounter - Jessica Thompson RN - 11/05/2021 0910 EDT Call placed to [facility] pharmacy regarding patient Singulair script. Clarified patient weekly chemotherapy schedule with pharmacist. elephone Encounter - Gerri Lopes - 11/04/2021 1653 EDT Mahi the pharmacy scheduler with [facility] [place], [place] is calling regarding patient's script forSingulair. Mahi states she needs to know what the patient's chemo schedule is; is he having chemo daily, weekly, every XX Days? Please call to advise. documented in this encounter Plan of Treatment Upcoming Encounters Date Type Specialty Care Team Description 01/28/2022 Phlebotomy Only Hematology and Oncology Blood Doctor, [facility] Hem Onc 01/28/2022 Appointment Infusion Therapy 02/04/2022 Phlebotomy Only Hematology and Oncology Blood Doctor, [facility] Hem Onc 02/04/2022 Office Visit Hematology and Oncology Henrik Marquez MD [address] [phone] (Wo rk) 02/04/2022 Appointment Infusion Therapy 02/11/2022 Phlebotomy Only Hematology and Oncology Blood Doctor, [facility] Hem Onc 02/11/2022 Appointment Infusion Therapy 02/18/2022 Phlebotomy Only Hematology and Oncology Blood Doctor, [facility] Hem Onc 02/18/2022 Appointment Infusion Therapy 03/09/2022 Office Visit Hematology and Oncology Dayanna Roman NP [address] [phone] (Wo rk) documented as of this encounter Visit Diagnoses Not on filedocumented in this encounter Care Teams Surveillance Analyst Relationship Specialty Start Date End Date Esau Serrano PA-C PCP - General 09/03/21 [address] [place] [address] Saray Nicholson ND Naturopathic Medicine 09/03/[address] [place] [address] documented as of this encounter
--- OUTSIDE RECORDS SUMMARY | 2022-01-24 10:49 | XMS_ITS | Encounter Summary ---
:1960 Author Organization [facility] Address [address] [place] [address] Care Team Providers Name Role Phone Esau Serrano PA-C Primary Care Provider [phone] Saray Nicholson ND Unavailable [phone] Reason for Visit (Routine/Next Available) - Receiving Office to Obtain Authorization Specialty Diagnoses / Procedures Referred By Contact Refer red To Contact Procedures Imaging, External XR OUTSIDE IMAGES CHEST Referral ID Status Reason Start Expiration Visits Visits Date Date Requested Authorized [id number] Receiving Office 10/14/2021 1 1 to Obtain Authorization Encounter Details Date Type Department Care Team Description 10/14/2021 Hospital Encounter [facility] Center Secondary Reads [place] Social History Tobacco Use Types Packs/Day Years [...] Sig Dispensed Refills Start Date End Date cholecalciferol, Vitamin Take 2,000 Units by 0 11/04/2021 D3, 50 mcg (2,000 unit) mouth daily. tablet COQ10, UBIQUINOL, ORAL coQ10 (ubiquinol) 0 11/04/2021 200mg capsule /day dexAMETHasone (DECADRON) Take 10 Tablets by 40 Tablet 0 11/04/2021 4 mg tablet mouth daily. Take 10 tablets (40 mg) daily for 4 days NONFORMULARY 2 times daily. HTN 0 10/22 Fluid riboflavin, vitamin B2, riboflavin (vitamin B2) 0 11/04/2021 (B-2) 100 mg tablet 1 cap 400mg/day tablet rosuvastatin (CRESTOR) Take 40 mg by mouth 0 06/2211/04/2021 40 mg tablet daily. soybean, fermented Nattokinase 0 11/04 (NATTOKINASE) 50 mg 1 cap (100mg) 1xday-to prevent clots capsule warfarin (COUMADIN) 5 mg Take 5 mg by mouth 0 11/04/2021 tablet daily. 5mg, and 2.5mg every other day documented as of this encounter Discharge Disposition Disposition Code Departure Means Destination Home or Self Care documented in this encounter Plan of Treatment Upcoming Encounters Date Type Specialty Care Team Description 01/28/2022 Phlebotomy Only Hematology and Oncology Blood Doctor, [facility] Hem Onc 01/28/2022 Appointment Infusion Therapy 02/04/2022 Phlebotomy Only Hematology and Oncology Blood Doctor, [facility] Hem Onc 02/04/2022 Office Visit Hematology and Oncology Henrik Marquez MD 111 [facility] Level 2 [place] [phone] (Wo rk) 02/04/2022 Appointment Infusion Therapy 02/11/2022 Phlebotomy Only Hematology and Oncology Blood Doctor, [facility] Hem Onc 02/11/2022 Appointment Infusion Therapy 02/18/2022 Phlebotomy Only Hematology and Oncology Blood Doctor, [facility] Hem Onc 02/18/2022 Appointment Infusion Therapy 03/09/2022 Office Visit Hematology and Oncology Dayanna Roman, CARDIOPULMONARY TECHNICIAN AND EEG TECH [address] [facility], [facility], [address] [place] [phone] (Wo rk) documented as of this encounter Procedures Procedure Name Priority Date/Time Associated Diagnosis Comme nts XR OUTSIDE IMAGES Routine 10/14/2021 17:43 Result s for this CHEST EDT procedure are i n the results section. documented in this encounter Results XR OUTSIDE IMAGES CHEST (10/14/2021 17:43 EDT) Specimen Narrative 10/14/2021 17:43 EDT This is a non-reportable exam. documented in this encounter Visit Diagnoses Not on filedocumented in this encounter Care Teams Coil Spring Assembler Relationship Specialty Start Date End Date Esau Serrano PA-C PCP - General 09/03/21 [address] [place] [address] Saray Nicholson ND Naturopathic Medicine 09/03/[address] [place] [address] documented as of this encounter
--- OUTSIDE RECORDS SUMMARY | 2022-01-24 10:49 | XMS_ITS | Encounter Summary ---
:1960 Author Organization [facility] Address [address] [place] [address] Care Team Providers Name Role Phone Esau Serrano PA-C Primary Care Provider [phone] Saray Nicholson ND Unavailable [phone] Reason for Visit Reason Onset Date Comments New/Evolving Symptoms 10/16/2021 Encounter Details Date Type Department Care Team Description 10/16/2021 Telephone [facility] Cancer Center Татьяна Lam MD New/Evolving Symptoms Hematology & Oncology [address] [phone] (Wo rk) Social History Tobacco Use Types [...] Telephone Encounter - Consuelo Atkins RN - 10/18/2021 0840 EDT Called pt to follow up on weekend sick call. He reports that his chest pressure as decreased from 6/10 to 4/10. He also states his leg swelling is much better. He shares that he is still feeling weak, but overall better. He is willing to come to [facility] to see Dr. Delaney if needed. I will discuss this with Dr. Delaney and call pt back with the plan. elephone Encounter - Татьяна Lam MD - 10/16/2021 2220 EDT Patient's daughter calling reporting that patient with worsening chest pressure and legs more swollen. Also feels that patient's face is swollen a bit. He is on a diuretic. No missed doses. No fevers. She thinks he should go to the ED but patient declining at this time. Patient with AL amyloidosis. Follows with Dr. Delaney. Agree with need for clinical evaluation, however patient continues to decline at this time. Encouraged daughter to call back with any additiona concerns or questions, or if new symptoms develop. Татьяна Lam MD 10/16/2021 22:24 documented in this encounter Plan of Treatment Upcoming Encounters Date Type Specialty Care Team Description 01/28/2022 Phlebotomy Only Hematology and Oncology Blood Doctor, [facility] Hem Onc 01/28/2022 Appointment Infusion Therapy 02/04/2022 Phlebotomy Only Hematology and Oncology Blood Doctor, [facility] Hem Onc 02/04/2022 Office Visit Hematology and Oncology Henrik Marquez MD 111 [facility] 2 [place] [address] (Wo rk) 02/04/2022 Appointment Infusion Therapy 02/11/2022 Phlebotomy Only Hematology and Oncology Blood Doctor, [facility] Hem Onc 02/11/2022 Appointment Infusion Therapy 02/18/2022 Phlebotomy Only Hematology and Oncology Blood Doctor, [facility] Hem Onc 02/18/2022 Appointment Infusion Therapy 03/09/2022 Office Visit Hematology and Oncology Dayanna Roman, SOCIAL WORK ADMINISTRATOR 111 [facility], [facility] 2 [place] [address] (Wo rk) documented as of this encounter Visit Diagnoses Not on filedocumented in this encounter Care Teams Extractions Technician Relationship Specialty Start Date End Date Esau Serrano PA-C PCP - General 09/03/21 [address] [place] [address] Saray Nicholson ND Naturopathic Medicine 09/03/[address] [place] [address] documented as of this encounter
--- OUTSIDE RECORDS SUMMARY | 2022-01-24 10:49 | XMS_ITS | Encounter Summary ---
:1960 Author Organization Address [address] [place] [address] Care Team Providers Name Role Phone Esau Serrano PA-C Primary Care Provider [phone] Saray Nicholson ND Unavailable [phone] Reason for Visit Reason Onset Date Comments Follow-up 11/01/2021 Encounter Details Date Type Department Care Team Description 11/01/2021 Telephone [facility] Cancer Center Hematology Wesley Orozco, [facility] Follow-up & Oncology - Main [place] [facility] [address] [place], [place] [phone] Social History Tobacco Use Types Packs/Day Years [...] Telephone Encounter - Jerod Orozco LICSW - 11/01/2021 1332 EDT LYNETTE HAND Note: Reason for Call: I called the [employer] financial assistance program to check on the pt's application for Darzalex Faspro. The rep explained that they are now requesting that 3 different health care provider forms need to be submitted since there are 3 different scripts. They rep also explained that they can't read the pt's signature on the pt's portion. Therefore, we will have to complete 3 more provider forms and I will have to mail in the application since they're unable to see the pt's signature through the fax. Pt Centered Identified Goal: Financial assistance for Darzalex Faspro Plan: F/u with the provider later this week to submit 3 provider forms for the multiple scripts. Jerod SUE documented in this encounter Plan of Treatment Upcoming Encounters Date Type Specialty Care Team Description 01/28/2022 Phlebotomy Only Hematology and Oncology Blood Doctor, [facility] Hem Onc 01/28/2022 Appointment Infusion Therapy 02/04/2022 Phlebotomy Only Hematology and Oncology Blood Doctor, [facility] Hem Onc 02/04/2022 Office Visit Hematology and Oncology Henrik Marquez MD [address] [phone] (Isabel whyte) 02/04/2022 Appointment Infusion Therapy 02/11/2022 Phlebotomy Only Hematology and Oncology Blood Doctor, [facility] Hem Onc 02/11/2022 Appointment Infusion Therapy 02/18/2022 Phlebotomy Only Hematology and Oncology Blood Doctor, [facility] Hem Onc 02/18/2022 Appointment Infusion Therapy 03/09/2022 Office Visit Hematology and Oncology Dayanna Roman, DEPUTY CHIEF EXECUTIVE 111 [facility] 2 [place] [phone] (Isabel whyte) documented as of this encounter Visit Diagnoses Not on filedocumented in this encounter Care Teams Outpatient Case Manager Relationship Specialty Start Date End Date Esau Serrano PA-C PCP - General 09/03/21 [address] [place] [address] Saray Nicholson ND Naturopathic Medicine 09/03/[address] [place] [address] documented as of this encounter
--- OUTSIDE RECORDS SUMMARY | 2022-01-24 10:49 | XMS_ITS | Encounter Summary ---
:1960 Author Organization [facility] Address [address] [place] [address] Care Team Providers Name Role Phone Esau Serrano PA-C Primary Care Provider [phone] Saray Nicholson ND Unavailable [phone] Reason for Visit Cardiology (Routine/Next Available) - Receiving Office to Obtain Authorization Specialty Diagnoses / Procedures Referred By Contact Refer red To Contact Procedures Imaging, External OUTSIDE IMAGES FOR ARCHIVE - ECHO Referral ID Status Reason Start Expiration Visits Visits Date Date Requested Authorized [id number] Receiving Office 10/14/2021 1 1 to Obtain Authorization Encounter Details Date Type Department Care Team Description 10/14/2021 Hospital Encounter [facility] Radiology - Main [place] [address] [place] [address] Social History Tobacco Use Types Packs/Day Years [...] Hematology and Oncology Henrik Marquez MD 111 [facility] 2 [place] [address] (Wo rk) 02/04/2022 Appointment Infusion Therapy 02/11/2022 Phlebotomy Only Hematology and Oncology Blood Doctor, [facility] Hem Onc 02/11/2022 Appointment Infusion Therapy 02/18/2022 Phlebotomy Only Hematology and Oncology Blood Doctor, [facility] Hem Onc 02/18/2022 Appointment Infusion Therapy 03/09/2022 Office Visit Hematology and Oncology Dayanna Roman, COIL FORMER [address] [place] [address] [facility], Level [address] [place] [address] (Wo rk) documented as of this encounter Procedures Procedure Name Priority Date/Time Associated Diagnosis Comme nts OUTSIDE IMAGES FOR Routine 10/14/2021 17:43 Resul ts for this ARCHIVE - ECHO EDT procedure are in the results section. documented in this encounter Results OUTSIDE IMAGES FOR ARCHIVE - ECHO (10/14/2021 17:43 EDT) Specimen Narrative [facility] - 10/14/2021 17:43 EDT This is a non-reportable exam. Performing Organization Address City/State/ZIP Code Phon e Number [facility] documented in this encounter Visit Diagnoses Not on filedocumented in this encounter Care Teams Sculpture Instructor Relationship Specialty Start Date End Date Esau Serrano PA-C PCP - General 09/03/21 [address] [place] [address] Saray Nicholson ND Naturopathic Medicine 09/03/[address] [place] [address] documented as of this encounter
--- OUTSIDE RECORDS SUMMARY | 2022-01-24 10:49 | XMS_ITS | Encounter Summary ---
:[address] [facility] Address [address] [place] [address] Care Team Providers Name Role Phone Esau Serrano PA-C Primary Care Provider [phone] Sraay Nicholson ND Unavailable Reason for Visit Reason Onset Date Comments Labs Only 09/27/2021 Encounter Details Date Type Department Care Team Description 09/27/2021 Telephone [facility] Cancer Center Kathy Marquez Labs Only Hematology & Oncology - A, [address] [address] [place], [place] [address] (Wo rk) Social History [...] this encounter Miscellaneous Notes Telephone Encounter - Annika Rosario RN - 09/27/2021 1117 EDT Call back to patient's and confirmed lab orders for 24hour urine can be faxed to [facility] lab. (call to lab and confirmed they can run this test and confirmed fax # is [phone]). elephone Encounter - Lincoln Rolle - 09/27/2021 1040 EDT Patient's calling to see if patient can have 24 hr urine lab done at [facility] since it is closer tohis home. Please advise. documented in this encounter Plan of Treatment Upcoming Encounters Date Type Specialty Care Team Description 01/28/2022 Phlebotomy Only Hematology and Oncology Blood Doctor, [facility] Hem Onc 01/28/2022 Appointment Infusion Therapy 02/04/2022 Phlebotomy Only Hematology and Oncology Blood Doctor, [facility] Hem Onc 02/04/2022 Office Visit Hematology and Oncology Henrik Marquez MD [address] [phone] (Wo rk) 02/04/2022 Appointment Infusion Therapy 02/11/2022 Phlebotomy Only Hematology and Oncology Blood Doctor, [facility] Hem Onc 02/11/2022 Appointment Infusion Therapy 02/18/2022 Phlebotomy Only Hematology and Oncology Blood Doctor, [facility] Hem Onc 02/18/2022 Appointment Infusion Therapy 03/09/2022 Office Visit Hematology and Oncology Dayanna Roman NP [address] [address] (Wo rk) documented as of this encounter Visit Diagnoses Not on filedocumented in this encounter Care Teams Basket Hand Weaver Relationship Specialty Start Date End Date Esau Serrano PA-C PCP - General 09/03/21 [address] [place] [address] Saray Nicholson, JOVAN Naturopathic Medicine 09/03/[address] [place] [address] documented as of this encounter
--- OUTSIDE RECORDS SUMMARY | 2022-01-24 10:49 | XMS_ITS | Encounter Summary ---
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 Yes Specify clinical question Systemic vs localized AL radha loid? Best pathology for kidney: MGRS? Radiology Review No Need to Review Pathology Review Review Recent Pathology Please indicate which slides are to be Systemic vs loc alized AL amyloid? Best reviewed and add the pathology question pathology for kidney: MGRS? 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[facility]) - [address] ([facility]) (Primary Dx) [address] [place] [id number] [place] [address] [address] (Wo rk) Social History Tobacco [...] Phlebotomy Only Hematology and Oncology Blood Doctor, [facility] Hem Onc 01/28/2022 Appointment Infusion Therapy 02/04/2022 Phlebotomy Only Hematology and Oncology Blood Doctor, [facility] Hem Onc 02/04/2022 Office Visit Hematology and Oncology Henrik Marquez MD [address] [address] (Wo rk) 02/04/2022 Appointment Infusion Therapy 02/11/2022 Phlebotomy Only Hematology and Oncology Blood Doctor, [facility] Hem Onc 02/11/2022 Appointment Infusion Therapy 02/18/2022 Phlebotomy Only Hematology and Oncology Blood Doctor, [facility] Hem Onc 02/18/2022 Appointment Infusion Therapy 03/09/2022 Office Visit Hematology and Oncology Dayanna Roman, COST ACCOUNTING MANAGER [address] [facility], 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
--- OUTSIDE RECORDS SUMMARY | 2022-01-24 10:49 | XMS_ITS | Encounter Summary ---
:1960 Author Organization [facility] Address [address] [place] [address] Care Team Providers Name Role Phone Esau Serrano PA-C Primary Care Provider Saray Nicholson ND Unavailable [phone] Encounter Details Date Type Department Care Team Description 10/12/2021 Orders Only [facility] Cancer Center Kathy Marquez Hematology & Oncology - A, [address] [address] [facility], [place], [place] [address] (Wo rk) Social History [...] Sig Dispensed Refills Start Date End Date dexAMETHasone (DECADRON) 4 Take 10 Tablets by 40 Tablet 0 0 10/12/2021 11/04/2021 mg tablet mouth daily. Take 10 tablets (40 mg) daily for 4 days documented in this encounter Plan of Treatment Upcoming Encounters Date Type Specialty Care Team Description 01/28/2022 Phlebotomy Only Hematology and Oncology Blood Doctor, [facility] Hem Onc 01/28/2022 Appointment Infusion Therapy 02/04/2022 Phlebotomy Only Hematology and Oncology Blood Doctor, [facility] Hem Onc 02/04/2022 Office Visit Hematology and Oncology Henrik Marquez MD [address] [phone] (Wo rk) 02/04/2022 Appointment Infusion Therapy 02/11/2022 Phlebotomy Only Hematology and Oncology Blood Doctor, [facility] Hem Onc 02/11/2022 Appointment Infusion Therapy 02/18/2022 Phlebotomy Only Hematology and Oncology Blood Doctor, [facility] Hem Onc 02/18/2022 Appointment Infusion Therapy 03/09/2022 Office Visit Hematology and Oncology Dayanna Roman, KODI [address] [phone] (Wo rk) documented as of this encounter Visit Diagnoses Not on filedocumented in this encounter Discontinued Medications Medication Sig Discontinue Reason Start Date End Date dexAMETHasone (DECADRON) 4 Take 1 Tablet by 10/11/2021 10/12/2021 mg tablet mouth daily for 4 days. documented as of this encounter Care Teams Midlevel Provider Relationship Specialty Start Date End Date Esau Serrano PA-C PCP - General 09/03/[address] [place] [phone] Saray Nicholson ND Naturopathic Medicine 5/13/[address] [place] [address] documented as of this encounter
--- OUTSIDE RECORDS SUMMARY | 2022-01-24 10:49 | XMS_ITS | Encounter Summary ---
:1960 Author Organization [facility] Address [address] [place] [address] Care Team Providers Name Role Phone Esau Serrano PA-C Primary Care Provider [phone] Saray Nicholson ND Unavailable [phone] Reason for Visit Reason Onset Date Comments Medication Questions 10/12/2021 Encounter Details Date Type Department Care Team Description 10/12/2021 Telephone [facility] Cancer Center Theodore Marquez [facility] Hematology & Oncology Franco Pace [address] [address] [place], [place] [address] (Wo rk) Social History Tobacco [...] Telephone Encounter - Consuelo Atkins RN - 10/12/2021 1143 EDT Called pharmacy, advised that the correct dosing is 10 tablets daily for 4 days, per previous note from Dr. Delaney. elephone Encounter - Noemi Hare - 10/12/2021 0906 EDT [facility] pharmacy calling again to get clarification on Dexamethasone prescription. They are asking if it is 40 tablets or 10 tablets for 4 days. 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 elephone Encounter - Chapis Alberto - 10/12/2021 0812 EDT [facility] called clinic wanting to clarify prescription for Dexamethasone and if it should be40 tablets or 10 tablet for 4 days. Please call back to advise. documented in this encounter Plan of Treatment Upcoming Encounters Date Type Specialty Care Team Description 01/28/2022 Phlebotomy Only Hematology and Oncology Blood Doctor, [facility] Hem Onc 01/28/2022 Appointment Infusion Therapy 02/04/2022 Phlebotomy Only Hematology and Oncology Blood Doctor, [facility] Hem Onc 02/04/2022 Office Visit Hematology and Oncology Henrik Marquez MD 111 [facility] 2 [place] [phone] (Wo rk) 02/04/2022 Appointment Infusion Therapy 02/11/2022 Phlebotomy Only Hematology and Oncology Blood Doctor, [facility] Hem Onc 02/11/2022 Appointment Infusion Therapy 02/18/2022 Phlebotomy Only Hematology and Oncology Blood Doctor, [facility] Hem Onc 02/18/2022 Appointment Infusion Therapy 03/09/2022 Office Visit Hematology and Oncology Dayanna Roman, MARGARINE CHURN OPERATOR 111 [facility], Level [address] [place] [address] (Wo rk) documented as of this encounter Visit Diagnoses Not on filedocumented in this encounter Care Teams Pin Pusher Relationship Specialty Start Date End Date Esau Serrano PA-C PCP - General 09/03/21 [address] [place] [address] Saray Nicholson ND Naturopathic Medicine 09/03/[address] [place] [address] documented as of this encounter
--- OUTSIDE RECORDS SUMMARY | 2022-01-24 10:49 | XMS_ITS | Encounter Summary ---
:1960 Author Organization [facility] Address [address] [place] [id number] Care Team Providers Name Role Phone Esau Serrano PA-C Primary Care Provider [phone] Saray Nicholson [place] Unavailable Reason for Visit Reason Onset Date Comments Orders (Non Pre-visit) 10/13/2021 Follow-up 10/13/2021 Encounter Details Date Type Department Care Team Description 10/13/[address] [facility] Cancer Center Mamie Marquez (Non Hematology & Oncology Franco Pace Pre-visit); Follow-up - [address] [address] [place], [place] [phone] (Wo rk) Social History Tobacco Use Types [...] this encounter Miscellaneous Notes Telephone Encounter - Geeta Martinez - 10/13/2021 1034 EDT Faxed to # requested elephone Encounter - Dee Flower - 10/13/2021 1026 EDT Antonio requesting call back to see if there is a chest XRAY needed as he has ECHO elephone Encounter - Dee Flower - 10/13/2021 0951 EDT Requesting Chest XRAY and Echo be resent to [facility] [phone] signed by Dee Flower at 10/13/2021 9:52 EDTdocumented in this encounter Plan of Treatment Upcoming Encounters Date Type Specialty Care Team Description 01/28/2022 Phlebotomy Only Hematology and Oncology Blood Doctor, [facility] Hem Onc 01/28/2022 Appointment Infusion Therapy 02/04/2022 Phlebotomy Only Hematology and Oncology Blood Doctor, [facility] Hem Onc 02/04/2022 Office Visit Hematology and Oncology Henrik Marquez MD 111 [facility], [address] [place] [phone] (Wo rk) 02/04/2022 Appointment Infusion Therapy 02/11/2022 Phlebotomy Only Hematology and Oncology Blood Doctor, [facility] Hem Onc 02/11/2022 Appointment Infusion Therapy 02/18/2022 Phlebotomy Only Hematology and Oncology Blood Doctor, [facility] Hem Onc 02/18/2022 Appointment Infusion Therapy 03/09/2022 Office Visit Hematology and Oncology Dayanna Roman, ONLINE TUTOR [address] [facility], [facility], [address] [place] [phone] (Wo rk) documented as of this encounter Visit Diagnoses Not on filedocumented in this encounter Care Teams Camp Coordinator Relationship Specialty Start Date End Date Esau Serrano PA-C PCP - General 09/03/21 [address] [place] [address] Saray Nicholson, JOVAN Naturopathic Medicine 09/03/[address] [place] [address] documented as of this encounter
--- OUTSIDE RECORDS SUMMARY | 2022-01-24 10:49 | XMS_ITS | Encounter Summary ---
:[address] [facility] Address [address] [place] [address] Care Team Providers Name Role Phone Esau Serrano PA-C Primary Care Provider [phone] Saray Nicholson ND Unavailable [phone] Reason for Visit Reason Onset Date Comments Coordination Of Care 10/08/2021 Referral Request 10/08/2021 Encounter Details Date Type Department Care Team Description 10/08/[address] [facility] Cancer Center Ruth Marquezation Of Care; Hematology & Oncology Franco Pace Referral Request - [facility] [address] [address] [place], [place] [phone] (Wo rk) Social History Tobacco Use Types [...] this encounter Miscellaneous Notes Telephone Encounter - GreeneDee hickey - 10/08/2021 1335 EDT Requesting Kidney Biopsy Full Pathology Report from 08/18/2021 and Happy report referenced with. Please fax to [phone] signed by Dee Flower at 10/08/2021 13:37 EDTdocumented in this encounter Plan of Treatment Upcoming Encounters Date Type Specialty Care Team Description 01/28/2022 Phlebotomy Only Hematology and Oncology Blood Doctor, [facility] Hem Onc 01/28/2022 Appointment Infusion Therapy 02/04/2022 Phlebotomy Only Hematology and Oncology Blood Doctor, [facility] Hem Onc 02/04/2022 Office Visit Hematology and Oncology Henrik Marquez MD [address] [phone] (Wo rk) 02/04/2022 Appointment Infusion Therapy 02/11/2022 Phlebotomy Only Hematology and Oncology Blood Doctor, [facility] Hem Onc 02/11/2022 Appointment Infusion Therapy 02/18/2022 Phlebotomy Only Hematology and Oncology Blood Doctor, [facility] Hem Onc 02/18/2022 Appointment Infusion Therapy 03/09/2022 Office Visit Hematology and Oncology Dayanna Roman, KODI 111 [facility] [address] [place] [address] (Wo rk) documented as of this encounter Visit Diagnoses Not on filedocumented in this encounter Care Teams Musical Instrument Maker Or Repairer Relationship Specialty Start Date End Date Esau Serrano PA-C PCP - General 09/03/[address] [place] [phone] Saray Nicholson, JOVAN Naturopathic Medicine 09/03/[address] [place] [address] documented as of this encounter
--- OUTSIDE RECORDS SUMMARY | 2022-01-24 10:49 | XMS_ITS | Encounter Summary ---
:1960 Author Organization [facility] Address [address] [place] [address] Care Team Providers Name Role Phone Esau Serrano PA-C Primary Care Provider [phone] Saray Nicholson ND Unavailable [phone] Encounter Details Date Type Department Care Team Description 10/18/2021 Orders Only [facility] Cancer Center ANALI Marquez myloidosis Hematology & Oncology Franco Pace ([facility] ([facility]) - [address] (Primary Dx) [address] [place] [address] [facility] [address] [place] [address] (Wo rk) Social History Tobacco [...] and Oncology Henrik Marquez MD [address] [phone] (Wo rk) 02/04/2022 Appointment Infusion Therapy 02/11/2022 Phlebotomy Only Hematology and Oncology Blood Doctor, [facility] Hem Onc 02/11/2022 Appointment Infusion Therapy 02/18/2022 Phlebotomy Only Hematology and Oncology Blood Doctor, [facility] Hem Onc 02/18/2022 Appointment Infusion Therapy 03/09/2022 Office Visit Hematology and Oncology Dayanna Roman, HOT WOUND SPRING PRODUCTION SUPERVISOR 111 [facility] [address] [place] [address] (Wo rk) documented as of this encounter Visit Diagnoses 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
--- OUTSIDE RECORDS SUMMARY | 2022-01-24 10:49 | XMS_ITS | Encounter Summary ---
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) Henrik Marquez, Procedures FACTOR 10 ASSAY MD [address] [phone] Referral ID Status Reason Start Date Expiration Date Visits V isits Requested Authorized [id number] New Request 10/06/2021 1 1 Laboratory Services (Routine/Next Available) - New Request Specialty Diagnoses / Procedures Referred By Contact Refer red To Contact Diagnoses 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) Henrik Marquez, Procedures HEMOGLOBIN A1C [address] [phone] Referral ID Status Reason Start Date Expiration Date Visits V isits Requested Authorized [id number] New Request 10/06/2021 1 1 Laboratory Services (STAT) - New Request Specialty Diagnoses / Procedures Referred By Contact Refer red To Contact Diagnoses 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) Henrik Marquez, Procedures LIPID PROFILE (INCLUDES CHOLESTEROL, TRIGLYCERIDES, HDL, LDL) [address] [phone] Referral ID Status Reason Start Date Expiration Date Visits V isits Requested Authorized [id number] New Request 10/06/2021 1 1 Laboratory Services (Routine/Next Available) - New Request Specialty Diagnoses / Procedures Referred By Contact Refer red To Contact Diagnoses 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) Henrik Marquez, Procedures TROPONIN I [address] [place] [phone] Referral ID Status Reason Start Date Expiration Date Visits V isits Requested Authorized [id number] New Request 10/06/2021 1 1 Cardiology (STAT) - Authorization Not Required Specialty Diagnoses / Procedures Referred By Contact Refer red To Contact Diagnoses 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) Henrik Marquez, Procedures TRANSTHORACIC ECHO (TTE) COMPLETE NV ECHO HEART XTHORACIC,COMPLETE W DOPPLER [address] [phone] Referral ID Status Reason Start Expiration Visits Visits Date Date Requested Authorized [id number] Authorization Not 10/06/2021 04/23/2022 1 1 Required Reason for Visit Reason Comments Telemedicine Video Visit Follow-up Encounter Details Date Type Department Care Team Description 10/06/2021 Telemedicine [facility] Joe Marquez light chain nephropathy (HCC) (Primary Dx); Hematology & Henrik Dotson MD Disorder of kidney due to lambda light c franky disease (HCC) Oncology - [address] [place] [address] [facility], [place] [phone] (Wo rk) Social History Tobacco Use Types [...] encounter Progress Notes Henrik Marquez MD - 10/06/2021 1300 EDT 10/06/2021 FOLLOW UP PATIENT: Jong Copeland TELEMEDICINE VIDEO VISIT Today's visit was provided through telemedicine video conferencing: I have reviewed the appropriateness of using video technology with the patient with regards to today's visit. The location of the patient : Home Patient location state: Visit Location State: [place] The location of the provider: Office Provider location state: Visit Location State: [place] The following people and their roles were present for today's visit: Appointment Provider: Henrik Marquez MD The concept of ???Telemedicine?? has been [...] copays, deductible or coinsurance for this service. CHIEF COMPLAINT Telemedicine Video Visit and Follow-up HISTORY OF PRESENT ILLNESS Interim Hx: Last seen 09/10/2021 Since his last visit, he continues to feel well and denies any new symptoms or complaints. The only ongoing symptom is a chronic hacking dry cough with no SOB or GODINEZ associated. Denies CP, hemoptysis or phlegm. He had a PET/CT, BMBx and repeated SPEP/UPEP were obtained. He denies any recent changes in his urine characteristics. No unintentional weight loss, no palpableLAD. Heme/Onc Hx: 61 yo M w/ PMH of HTN, HLD, and nephrotic Sd of unclear etiology who was referred in 09/10/2021 for concern of amyloidosis. He was in his USOH until ~-05/2021 when he developed uncontrolled HTN and was found to have hypoalbuminemia + nephrotic range proteinuria w/ normal Cr. He was initially worked-up in [facility] and had extensive negative immunology testing testing. He then saw nephrology at [facility] and underwent renal biopsy. Subsequently patient underwent renal biopsy on 08/18/2021 which showed extra-glomerular amyloid depositsw/ anti-lambda, anti-IgM and C3 stains (confirmed AL lambda) w/ randomly arranged fibrils in EM. Extensive work-up showed neutrophilic leukocytosis (WBC ~15K) and borderline polycythemia (Hb ~17) but no other hematologic changes. FLC showed Tappan ~7 and Lambda ~2.65 but otherwise no abnormalities.KLR was normal and SPEP + 24h UPEP were negative for monoclonal protein twice. Baseline evaluation showed fatigue for ~6 months but no other complaints except for BLE edema. He had no other constitutional Sx. At initial evaluation, he was intolerant to many antihypertensives and had started PPx AC w/ warfarin by nephrology. PROBLEM LIST Patient Active Problem List Diagnosis ??? Essential hypertension ??? Hyperlipidemia ??? Hypertensive chronic kidney disease with stage 1 through stage 4 chronic kidney disease, or unspecified chronic kidney disease ??? Nephrotic syndrome with unspecified morphologic changes PAST HISTORY Past Medical History: Diagnosis Date ??? Chronic kidney disease ??? Hyperlipidemia ??? Hypertension Past Surgical History: Procedure Laterality Date ??? UMBILICAL HERNIA REPAIR 2008 No family history on file. MEDICATIONS Medication ??? cholecalciferol, Vitamin D3, 50 mcg (2,000 unit) tablet ??? COQ10, UBIQUINOL, ORAL ??? NONFORMULARY ??? riboflavin, vitamin B2, (B-2) 100 mg tablet tablet ??? rosuvastatin (CRESTOR) 40 mg tablet ??? soybean, fermented (NATTOKINASE) 50 mg capsule ??? warfarin (COUMADIN) 5 mg tablet ALLERGIES Allergies Allergen Reactions ??? Chlorthalidone Major cramping ??? Furosemide major cramping ??? Hydrochlorothiazide Major cramping ??? Lisinopril Continuous cough REVIEW OF SYSTEMS Constitutional: Positive for fatigue. HENT: Negative. Eyes: Negative. Respiratory: Negative. Cardiovascular: Negative. Gastrointestinal: Negative. Endocrine: Negative. Genitourinary: Negative. Musculoskeletal: Negative. Skin: Negative. Allergic/Immunologic: Negative. Neurological: Negative. Hematological: Negative. Psychiatric/Behavioral: The patient is nervous/anxious. All other systems reviewed and are negative. DIAGNOSTIC DATA Basic Metabolic Panel Lab Results Component Value Date NA 138 09/10/2021 K 4.1 09/10/2021 CL 105 09/10/2021 CO2 25 09/10/2021 BUN 26 09/10/2021 CREATININE 1.08 09/10/2021 CALCGFR 79 09/10/2021 CALCIUM 7.9 (L) 09/10/2021 MG 2.0 09/10/2021 Gastrointestinal Lab Results Component Value Date LDH 251 (H) 09/10/2021 ALKPHOS 107 09/10/2021 AST 42 09/10/2021 ALT 29 09/10/2021 TBIL <0.5 09/10/2021 TP 5.0 (L) 09/10/2021 TP 5.0 (L) 09/10/2021 LABALBU 2.3 (L) 09/10/2021 AGRATIO 0.9 (L) 09/10/2021 Complete Blood Count Lab Results Component Value Date WBC 14.40 (H) 09/22/2021 RBC 5.45 09/22/2021 HGB 16.5 09/22/2021 HCT 48.4 09/22/2021 MCV 89 09/22/2021 MCH 30.3 09/22/2021 MCHC 34.1 09/22/2021 PLT 342 09/22/2021 MPV 9.5 09/22/2021 RDWCV 14.4 (H) 09/22/2021 Differential (Absolute) Lab Results Component Value Date DIFFTYPE Auto 09/22/2021 NEUTROABS 9.94 (H) 09/22/2021 LYMPHSABS 2.34 09/22/2021 MONOSABS 1.35 (H) 09/22/2021 EOSABS 0.54 09/22/2021 PROTEIN PANELS 07/19/2021 06:45 07/19/2021 14:30 07/19/2021 14:57 08/23/2021 15:10 09/06/2021 14:04 09/07/2021 14:50 09/10/2021 17:17 10/01/2021 06:00 Total Protein, Urine 24 hr 14,900 (H) Tot Prot,Ur Random, External 391.0 Total Protein, 24 Hour Calc, External 9,384.0 Lambda Free Light Chains 7.07 (H) 7.11 (H) Tappan Free Lt Chain 2.64 (H) 2.66 (H) Tappan/Lambda Ratio 0.37 0.37 IgG 319 (L) IgA 332 IgM 92 Albumin % 45.6 (L) 45.6 (L) 46.5 (L) Albumin g/dL 2.2 (L) 2.3 (L) Alpha-1 % 5.1 (H) 5.8 (H) 4.6 Alpha-1 g/dL 0.30 0.20 Alpha-2 % 26.4 (H) 27.4 (H) 27.5 (H) Alpha-2 g/dL 1.30 (H) 1.40 (H) Beta % 14.3 (H) 13.0 13.2 (H) Beta g/dL 0.60 0.70 Gamma % 8.6 (L) 8.2 (L) 8.2 (L) Gamma g/dL 0.40 (L) 0.40 (L) Immunotyping,Serum Current Interpretation: Negative for monoclonal immunoglobulins. Current Interpretation: Negative for monoclonal immunoglobulins. Albumin, Urine % 68.4 76.5 77.5 Albumin, Urine mg/24hrs 11,548 Albumin, Urine mg/dL 805 Globulins, Urine % 31.6 23.5 22.5 Globulins, Urine mg/24hrs 3,353 Globulins, Urine mg/dL 247 Immunotyping, Urine Current Interpretation: Negative for free monoclonal light chains. Current Interpretation: Negative for free monoclonal light chains. Current Interpretation: Free monoclonal lambda light chains identified PATHOLOGY KIDNEY, CHILKOOT, NEEDLE CORE BIOPSIES (08/18/2021): -Amyloidosis, AL (lambda)- type Glomerular and extra-glomerular vascular amyloid deposits are present. On immunofluorescence, the amyloid deposits show monotypic staining with anti- lambda as well as staining with C3 and the greatest immunoglobulin staining with anti-IgM. These findings suggest AL amyloidosis. [facility] amyloidosis which confirms that this represents AL (lambda) amyloidosis (see separate [place] report). Electron microscopy shows deposition of small [...] by plasma cell myeloma or lymphoma VITALS Pain score: 0 ECOG Performance Status: 0 [...] Mild coronary calcifications. 6. Left nonobstructive nephrolithiasis. 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 ASSESSMENT AND PLAN 61 yo M w/ PMH of HTN, HLD, and nephrotic Sd concerning for amyloidosis. Developed uncontrolled HTN + nephrotic range proteinuria in 05/2021 w/ renal biopsy on 08/18/2021 showing extra-glomerular amyloid deposits w/ anti-lambda, anti-IgM and C3 stains (confirmed AL lambda) w/randomly arranged fibrils in EM. W/U showed neutrophilic leukocytosis (WBC ~15K) w/o other hematologic changes. KLR was normal and SPEP + 24h UPEP were negative twice. Repeated M-protein testing, BMBx and PET were recommended. 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 ?? BM biopsy showed no evidence of clonal plasma or B cell population but showed a increased plasma cells with predominance of lambda. He also had a PET which showed no evidence of lymphadenopathy, plasmacytoma or bone lesions (or any other FDG avid finding). Flow cytometry of peripheral blood showed no clonal lymphocytes. However, the recently repeated 24h-UPEP showed free monoclonal lambda light chains identified. I confirmed with pathology (Dr. Wang) that there is no evidence of an IgM M-spike inUPEP, only lambda. ?? Until today, he had not met AL amyloid criteria due to the lack of M-protein or clonal cell population finding. We considered MGRS or PGNMID, which can sometimes present w/o detectable circulating monoclonal gammopathy or plasma cell or B cell clones (monoclonal protein only found in the kidney). We had considered empiric treatment based on IgM staining in kidney biopsy with rituximab. However, the new presence of Lambda M-protein in urine is now more consistent w/ primary AL amyloidosis with positive amyloid stain in kidney and BM + urine M-protein + nephrotic Sd. Based on above findings, will proceed with: -Echocardiogram assessment -Baseline coagulation testing + FX level -Repeat troponin (previous level was elevated, needs to be repeated for transplant eligibility) -Consult w/ amyloid center in -Prepare for upfront treatment. I favor Gretel-[facility] and consideration of SCT though I will offer BU consult as above ?? Henrik Knutson MD documented in this encounter Plan of Treatment Upcoming Encounters Date Type Specialty Care Team Description 01/28/2022 Phlebotomy Only Hematology and Oncology Blood Doctor, [facility] Hem Onc 01/28/2022 Appointment Infusion Therapy 02/04/2022 Phlebotomy Only Hematology and Oncology Blood Doctor, [facility] Hem Onc 02/04/2022 Office Visit Hematology and Oncology Henrik Marquez MD [address] [facility] Level [address] [place] [phone] (Wo rk) 02/04/2022 Appointment Infusion Therapy 02/11/2022 Phlebotomy Only Hematology and Oncology Blood Doctor, [facility] Hem Onc 02/11/2022 Appointment Infusion Therapy 02/18/2022 Phlebotomy Only Hematology and Oncology Blood Doctor, [facility] Hem Onc 02/18/2022 Appointment Infusion Therapy 03/09/2022 Office Visit Hematology and Oncology Dayanna Roman, MEDICAL ASSISTANT OB GYN 111 [facility], [address] [place] [phone] (Wo rk) documented as of this encounter Results (ABNORMAL) FACTOR 10 ASSAY (10/20/2021 13:30 EDT) Pathologist Sig nature Factor 10 Assay 10 (L) 86 - 195 % [facility] TORY SERVICES Specimen Blood - Venous blood (substance) Performing Organization Address [facility] Phon e Number [facility] [address] [place] [address] SERVICES HEMOGLOBIN A1C (10/20/2021 13:30 EDT) Hemoglobin A1c 5.5 <5.7 % [facility] Comment: LABORATORY SERVICES Glycemic Status References: Normal: ??<5.7% Pre-Diabetes: ??5.7% - 6.4% Diagnostic of Diabetes: ??> or = 6.5% (if confirmed) Est Avg Glucose 111Comment: The eAG mg/dL [facility] represents the A1c LABORATORY SERVICES result expressed as average glucose in mg/dL. Specimen Blood - Venous blood (substance) Performing Organization Address [facility] Phon e Number [facility] [address] [place] [address] SERVICES (ABNORMAL) LIPID PROFILE (INCLUDES CHOLESTEROL, TRIGLYCERIDES, HDL, LDL) (10/20/2021 13:30 EDT) Cholesterol 356 (H)Comment: <200 mg/dL [facility] Note that [facility]ENTER [facility]ORY therapeutic goals SERVICES will differ between patients based on cardiac risk factors and current medical therapy. HDL 40Comment: Note >=40 mg/dL [facility] that therapeutic [facility] goals will differ SERVICES between patients based on cardiac risk factors and current medical therapy. LDL, Calculated 280 (H)Comment: <160 mg/dL [facility] Note that CENTER LABORATORY therapeutic goals SERVICES will differ between patients based on cardiac risk factors and current medical therapy. Triglyceride 180 (H)Comment: <=150 mg/dL [facility] Note that [facility] therapeutic goals SERVICES will differ between patients based on cardiac risk factors and current medical therapy. Chol/HDL Ratio 8.9Comment: No See Note [facility] reference range [facility] has been SERVICES established for CHOL/HDL ratio. Non HDL Cholesterol 316 (H)Comment: <160 mg/dL [facility] Note that [facility]ENTER [facility]ORY therapeutic goals SERVICES will differ between patients based on cardiac risk factors and current medical therapy. Specimen Blood - Venous blood (substance) Performing Organization Address City/[facility] Phon e Number [facility] [address] [place] [address] SERVICES (ABNORMAL) TROPONIN I (10/20/2021 13:30 EDT) Pathologist Sig nature Troponin I (ng/mL) 0.173 (H) <0.034 ng/mL [facility] SERVICES Specimen Blood - Venous blood (substance) Narrative [facility] SERVICES - 10/20/2021 14:38 EDT The results of this assay can be falsely lowered due to the consumption of Biotin. Performing Organization Address [facility] Phon e Number [facility] [address] [place] [address] SERVICES documented in this encounter Visit Diagnoses Diagnosis Amyloid light chain nephropathy (HCC) - Primary Disorder of kidney due to lambda light c franky disease (HCC) documented in this encounter Orders Echocardiography Count Last Ordered Date First Ordered Date TRANSTHORACIC ECHO (TTE) COMPLETE 1 10/06/2021 documented in this encounter Care Teams Jet Wiper Relationship Specialty Start Date End Date Esau Serrano PA-C PCP - General 09/03/21 [address] [place] [address] Saray Nicholson ND Naturopathic Medicine 09/03/[address] [place] [phone] documented as of this encounter
--- OUTSIDE RECORDS SUMMARY | 2022-01-24 10:49 | XMS_ITS | Encounter Summary ---
:1960 Author Organization [facility] Address [address] [place] [address] Care Team Providers Name Role Phone Esau Serrano PA-C Primary Care Provider [phone] Saray Nicholson ND Unavailable [phone] Reason for Referral Consult (See Order Priority) - Specialty Report Received Specialty Diagnoses / Procedures Referred By Contact Refer red To Contact Hematology and Diagnoses Amyloid light chain nephropathy (HCC) Elaina Knutson, Ep2 Hem/Onc Oncology Henrik Dotson MD [address] [address] [facility] Phone: [place], [address] [place] [address] Referral ID Status Reason Start Expiration Visits Visits Date Date Requested Authorized [id number] Specialty Specialty 10/18/2021 1 1 Report Services Received Required Question Answer Insurance / Financial Yes Comments Pt has no insurance, but will need treat ment. Encounter Details Date Type Department Care Team Description 10/18/2021 Orders Only [facility] Nakul Atkins ght chain Hematology & Oncology - Consuelo RN nep hropathy (HCC) [facility] (Primary Dx) [address] [place] [id number] Social History Tobacco Use Types Packs/Day Years [...] Only Hematology and Oncology Blood Doctor, [facility] Hem Onc 01/28/2022 Appointment Infusion Therapy 02/04/2022 Phlebotomy Only Hematology and Oncology Blood Doctor, [facility] Hem Onc 02/04/2022 Office Visit Hematology and Oncology Henrik Marquez MD [address] [phone] (Wo rk) 02/04/2022 Appointment Infusion Therapy 02/11/2022 Phlebotomy Only Hematology and Oncology Blood Doctor, [facility] Hem Onc 02/11/2022 Appointment Infusion Therapy 02/18/2022 Phlebotomy Only Hematology and Oncology Blood Doctor, [facility] Hem Onc 02/18/2022 Appointment Infusion Therapy 03/09/2022 Office Visit Hematology and Oncology Dayanna Roman, KODI [address] [address] (Wo rk) Scheduled Referrals Name Type Priority Associated Diagnoses Order S chedule AMB SOCIAL WORK Outpatient Referral STAT Amyloid light nessa n Expected: SERVICES nephropathy (HCC) 10/18/2021 (Approximate), Expires: 10/18/2022 documented as of this encounter Visit Diagnoses Diagnosis Amyloid light chain nephropathy (HCC) - Primary documented in this encounter Care Teams Air Hoist Operator Relationship Specialty Start Date End Date Esau Serrano PA-C PCP - General 09/03/21 [address] [place] [address] Saray Nicholson ND Naturopathic Medicine 09/03/[address] [place] [address] documented as of this encounter
--- OUTSIDE RECORDS SUMMARY | 2022-01-24 10:49 | XMS_ITS | Encounter Summary ---
:1960 Author Organization [facility] Address [address] [place] [address] Care Team Providers Name Role Phone Esau Serrano PA-C Primary Care Provider [phone] Saray Nicholson ND Unavailable Encounter Details Date Type Department Care Team Description 09/24/2021 Orders Only [facility] ANALI Marquez Hematology & Oncology Franco Pace ([facility]) - [address] ([facility]) (Primary Dx) [address] [place] [address] [facility] Level [address] [place] [address] (Wo rk) Social History Tobacco [...] Hematology and Oncology Henrik Marquez MD [address] [phone] (Wo rk) 02/04/2022 Appointment Infusion Therapy 02/11/2022 Phlebotomy Only Hematology and Oncology Blood Doctor, [facility] Hem Onc 02/11/2022 Appointment Infusion Therapy 02/18/2022 Phlebotomy Only Hematology and Oncology Blood Doctor, [facility] Hem Onc 02/18/2022 Appointment Infusion Therapy 03/09/2022 Office Visit Hematology and Oncology Dayanna Roman NP [address] [phone] (Wo rk) documented as of this encounter Visit Diagnoses Diagnosis AL amyloid nephropathy (HCC-CMS) (HCC) - Primary Other amyloidosis documented in this encounter Orders Lab Orders Without Results Count Last Ordered Date Ordered Date URINE MONOCLONAL PROTEIN STUDY (UPEP WITH 1 2021 IMMUNOTYPING), 24 HR documented in this encounter Care Teams Hospital Coordinator Relationship Specialty Start Date End Date Esau Serrano PA-C PCP - General 09/03/21 [address] [place] [phone] Saray Nicholson, JOVAN Naturopathic Medicine 09/03/[address] [place] [phone] documented as of this encounter
--- OUTSIDE RECORDS SUMMARY | 2022-01-24 10:49 | XMS_ITS | Encounter Summary ---
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) Henrik Marquez, Procedures TROPONIN I 111 [facility] 2 [place] [address] Referral ID Status Reason Start Date Expiration Date Visits V isits Requested Authorized [id number] New Request 10/06/2021 1 1 Encounter Details Date Type Department Care Team Description 10/20/2021 Phlebotomy Only [facility] 2 Painter Decorator, Acc Amyloi d light chain nephropathy (HCC); Phlebotomy Phlebotomy Disorder of kidney due to la mbda light chain disease (HCC) [address] [place], [place] [id number] Social History Tobacco Use Types Packs/Day Years [...] Hematology and Oncology Henrik Marquez MD [address] [phone] (Wo rk) 02/04/2022 Appointment Infusion Therapy 02/11/2022 Phlebotomy Only Hematology and Oncology Blood Doctor, [facility] Hem Onc 02/11/2022 Appointment Infusion Therapy 02/18/2022 Phlebotomy Only Hematology and Oncology Blood Doctor, [facility] Hem Onc 02/18/2022 Appointment Infusion Therapy 03/09/2022 Office Visit Hematology and Oncology Dayanna Roman NP [address] [phone] (Wo rk) documented as of this encounter Procedures Procedure Name Priority Date/Time Associated Diagnosis Comme nts FACTOR 10 ASSAY Routine 10/20/2021 13:30 Amyloid light chain R esults for this EDT nephropathy (HCC ) procedure are in Disorder of kidney the resul ts due to lambda light section. chain disease (HCC) TROPONIN I Routine 10/20/2021 13:30 Amyloid light chain Resu lts for this EDT nephropathy (HCC ) procedure are in Disorder of kidney the resul ts due to lambda light section. chain disease (HCC) HEMOGLOBIN A1C Routine 10/20/2021 13:30 Amyloid light chain Re sults for this EDT nephropathy (HCC ) procedure are in Disorder of kidney the resul ts due to lambda light section. chain disease (HCC) LIPID PROFILE STAT 10/20/2021 13:30 Amyloid light chain Res ults for this (INCLUDES EDT nephropathy (HCC ) procedure are in CHOLESTEROL, Disorder of kidney the resul ts TRIGLYCERIDES, HDL, due to lambda light s ection. LDL) chain disease (HCC) documented in this encounter Results (ABNORMAL) FACTOR 10 ASSAY (10/20/2021 13:30 EDT) Pathologist Sig nature Factor 10 Assay 10 (L) 86 - 195 % [facility] Specimen Blood - Venous blood (substance) Performing Organization Address City/[facility] Phon e Number [facility] [address] [place] [address] SERVICES HEMOGLOBIN A1C (10/20/2021 13:30 EDT) Hemoglobin A1c 5.5 <5.7 % [facility] Comment: LABORATORY SERVICES Glycemic Status References: Normal: ??<5.7% Pre-Diabetes: ??5.7% - 6.4% Diagnostic of Diabetes: ??> or = 6.5% (if confirmed) Est Avg Glucose 111Comment: The eAG mg/dL [facility] represents the A1c LABORATORY SERVICES result expressed as average glucose in mg/dL. Specimen Blood - Venous blood (substance) Performing Organization Address City/[facility] Phon e Number [facility] [address] [place] [address] SERVICES (ABNORMAL) LIPID PROFILE (INCLUDES CHOLESTEROL, TRIGLYCERIDES, HDL, LDL) (10/20/2021 13:30 EDT) Cholesterol 356 (H)Comment: <200 mg/dL [facility] Note that CENTER LABORATORY therapeutic goals SERVICES will differ between patients based on cardiac risk factors and current medical therapy. HDL 40Comment: Note >=40 mg/dL [facility] that therapeutic CENTER [facility] goals will differ SERVICES between patients based on cardiac risk factors and current medical therapy. LDL, Calculated 280 (H)Comment: <160 mg/dL [facility] Note that CENTER [facility]ORY therapeutic goals SERVICES will differ between patients based on cardiac risk factors and current medical therapy. Triglyceride 180 (H)Comment: <=150 mg/dL [facility] Note that CENTER [facility] therapeutic goals SERVICES will differ between patients based on cardiac risk factors and current medical therapy. Chol/HDL Ratio 8.9Comment: No See Note [facility] reference range [facility] has been SERVICES established for CHOL/HDL ratio. Non HDL Cholesterol 316 (H)Comment: <160 mg/dL [facility] Note that CENTER [facility]ORY therapeutic goals SERVICES will differ between patients based on cardiac risk factors and current medical therapy. Specimen Blood - Venous blood (substance) Performing Organization Address City/[facility]/ZIP Code Phon e Number [facility] [address] [place] [address] SERVICES (ABNORMAL) TROPONIN I (10/20/2021 13:30 EDT) Pathologist Sig nature Troponin I (ng/mL) 0.173 (H) <0.034 ng/mL [facility] Specimen Blood - Venous blood (substance) Narrative [facility] - 10/20/2021 14:38 EDT The results of this assay can be falsely lowered due to the consumption of Biotin. Performing Organization Address City/State/[facility] Code Phon e Number [facility] [address] [place] [address] SERVICES documented in this encounter Visit Diagnoses Diagnosis Amyloid light chain nephropathy (HCC) Disorder of kidney due to lambda light c franky disease (HCC) documented in this encounter Care Teams Field Marketing Director Relationship Specialty Start Date End Date Esau Serrano PA-C PCP - General 09/03/21 [address] [place] [address] Saray Nicholson ND Naturopathic Medicine 09/03/[address] [place] [address] documented as of this encounter
--- OUTSIDE RECORDS SUMMARY | 2022-01-24 10:49 | XMS_ITS | Encounter Summary ---
:[address] [facility] Address [address] [place] [address] Care Team Providers Name Role Phone Esau Serrano PA-C Primary Care Provider [phone] Saray Nicholson ND Unavailable [phone] Encounter Details Date Type Department Care Team Description 10/06/2021 Documentation Visit [facility] Nathaniel Atkins, Hematology & Oncology - RN Main [place] [address] [place] [phone] Social History Tobacco Use Types Packs/Day Years [...] encounter Progress Notes Consuelo Atkins RN - 10/06/2021 0851 EDT Images from the original note were not included. documented in this encounter Plan of Treatment Upcoming Encounters Date Type Specialty Care Team Description 01/28/2022 Phlebotomy Only Hematology and Oncology Blood Doctor, [facility] Hem Onc 01/28/2022 Appointment Infusion Therapy 02/04/2022 Phlebotomy Only Hematology and Oncology Blood Doctor, [facility] Hem Onc 02/04/2022 Office Visit Hematology and Oncology Henrik Marquez MD [address] [phone] (Wo rk) 02/04/2022 Appointment Infusion Therapy 02/11/2022 Phlebotomy Only Hematology and Oncology Blood Doctor, [facility] Hem Onc 02/11/2022 Appointment Infusion Therapy 02/18/2022 Phlebotomy Only Hematology and Oncology Blood Doctor, [facility] Hem Onc 02/18/2022 Appointment Infusion Therapy 03/09/2022 Office Visit Hematology and Oncology Dayanna Roman NP [address] [phone] (Wo rk) documented as of this encounter Visit Diagnoses Not on filedocumented in this encounter Care Teams Daycare Manager Relationship Specialty Start Date End Date Esau Serrano PA-C PCP - General 09/03/21 [address] [place] [address] Saray Nicholson ND Naturopathic Medicine 09/03/[address] [place] [address] documented as of this encounter
--- OUTSIDE RECORDS SUMMARY | 2022-01-24 10:49 | XMS_ITS | Encounter Summary ---
:1960 Author Organization [facility] Address [address] [place] [address] Care Team Providers Name Role Phone Esau Serrano PA-C Primary Care Provider [phone] Saray Nicholson ND Unavailable [phone] Reason for Visit Reason Onset Date Comments Follow-up 10/26/2021 Encounter Details Date Type Department Care Team Description 10/26/2021 Telephone [facility] Cancer Center Hematology Wesley Orozco, [facility] Follow-up & Oncology - Main [place] [facility] [address] [place] [address] Social History Tobacco Use Types [...] Telephone Encounter - Ernesto LINETTE Newsome - 10/26/2021 1025 EDT LYNETTE HAND Note: Reason for Call: Financial advocates shared that The and spouse did stop by on 10/20/2021. 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 I told them the amount that they would needto be under monthly to qualify for Medicaid and they said they are not under that amount. They did ap ply for the patient assistance program and I gave them a print off of the decision letter for that program. They got a 57% jose with the income they listed on the application. I also gave them [facility] Business card so they would have it for when open enrollment starts. I replied and asked if the pt would qualify for the new SEP through [facility] as I know little about the program. I reached out to the [employer] ([phone]) to inquire about the financial assistance for Darzalex. I was unable to find financial assistance for [employer]. They're sending me a project financial analyst application for Darzalex. I've reached out to Dr. Elaina Knutson(OOO 11/01) and Dr. Tellez to see if this would make sense to pursue. Pt Centered Identified Goal: Assist w/ financial assistance for tx Plan: Waiting to hear back from the financial advocates and the providers. Jerod SUE ADDENDUM 12:00 I spoke w/ Dr. Tellez and Dr. Elaina Knutson, pt needs to pursue Darzalex [employer]. I called Kimani srinivasan w/ his spouse. They were at [facility] and explained that they were waiting to see a provider. Pt may be pursuing a clinical trial in [place] and may not be getting tx here. They still wantto explore all financial assistance options for [facility] in case this is where he has tx. I have emailed the pt portion of the [employer] project financial analyst chance to the pt's spouse [email or web address]'re aware their tax return will be needed. Provider section is being addressed. documented in this encounter Plan of Treatment Upcoming Encounters Date Type Specialty Care Team Description 01/28/2022 Phlebotomy Only Hematology and Oncology Blood Doctor, [facility] Hem Onc 01/28/2022 Appointment Infusion Therapy 02/04/2022 Phlebotomy Only Hematology and Oncology Blood Doctor, [facility] Hem Onc 02/04/2022 Office Visit Hematology and Oncology Henrik Marquez MD 111 [facility] 2 [place] [address] (Wo rk) 02/04/2022 Appointment Infusion Therapy 02/11/2022 Phlebotomy Only Hematology and Oncology Blood Doctor, [facility] Hem Onc 02/11/2022 Appointment Infusion Therapy 02/18/2022 Phlebotomy Only Hematology and Oncology Blood Doctor, [facility] Hem Onc 02/18/2022 Appointment Infusion Therapy 03/09/2022 Office Visit Hematology and Oncology Dayanna Roman, KODI 111 [facility] 2 [place] [address] (Wo rk) documented as of this encounter Visit Diagnoses Not on filedocumented in this encounter Care Teams Gi Technician Relationship Specialty Start Date End Date Esau Serrano PA-C PCP - General 09/03/21 [address] [place] [address] Saray Nicholson ND Naturopathic Medicine 09/03/[address] [place] [phone] documented as of this encounter
--- OUTSIDE RECORDS SUMMARY | 2022-01-24 10:49 | XMS_ITS | Encounter Summary ---
:1960 Author Organization [facility] Address [address] [place] [address] Care Team Providers Name Role Phone Esau Serrano PA-C Primary Care Provider [phone] Saray Nicholson ND Unavailable [phone] Reason for Visit Reason Onset Date Comments Appointment Related 10/08/2021 Encounter Details Date Type Department Care Team Description 10/08/2021 Telephone [facility] Cancer Center Jacquelin Marquez intment Related Hematology & Oncology Franco Pace [address] [address] [place], [place] [address] (Wo rk) Social History Tobacco [...] Notes Telephone Encounter - Geeta Martinez - 10/08/2021 1323 EDT Called patient to schedule appt, no answer; scheduled for labs at 1330 & FUR 1400 on 10/20; LMOM Telephone Encounter - Geeta Martinez - 10/08/2021 1322 EDT ----- Message from Henrik Knutson MD sent at 10/08/2021 12:58 EDT ----- Sorry to be annoying but hoping he can get next visit and the planned labs scheduled today. He will consider a referral to so needs this soon. Thanks much documented in this encounter Plan of Treatment Upcoming Encounters Date Type Specialty Care Team Description 01/28/2022 Phlebotomy Only Hematology and Oncology Blood Doctor, [facility] Hem Onc 01/28/2022 Appointment Infusion Therapy 02/04/2022 Phlebotomy Only Hematology and Oncology Blood Doctor, [facility] Hem Onc 02/04/2022 Office Visit Hematology and Oncology Henrik Marquez MD [address] [phone] (Wo rk) 02/04/2022 Appointment Infusion Therapy 02/11/2022 Phlebotomy Only Hematology and Oncology Blood Doctor, [facility] Hem Onc 02/11/2022 Appointment Infusion Therapy 02/18/2022 Phlebotomy Only Hematology and Oncology Blood Doctor, [facility] Hem Onc 02/18/2022 Appointment Infusion Therapy 03/09/2022 Office Visit Hematology and Oncology Dayanna Roman, KODI 111 [facility] 2 [place] [address] (Wo rk) documented as of this encounter Visit Diagnoses Not on filedocumented in this encounter Care Teams Beverage Host Relationship Specialty Start Date End Date Esau eSrrano PA-C PCP - General 09/03/21 [address] [place] [address] Saray Nicholson, JOVAN Naturopathic Medicine 09/03/[address] [place] [phone] documented as of this encounter
--- OUTSIDE RECORDS SUMMARY | 2022-01-24 10:49 | XMS_ITS | Encounter Summary ---
:1960 Author Organization [facility] Address [address] [place] [address] Care Team Providers Name Role Phone Esau Serrano PA-C Primary Care Provider [phone] Saray Nicholson ND Unavailable [phone] Reason for Referral Radiology Services (Routine/Next Available) - Authorization Not Required Specialty Diagnoses / Procedures Referred By Contact Refer red To Contact Diagnoses Amyloid light chain nephropathy (HCC) Henrik Marquez, External Procedures XR CHEST 2 VIEWS MD [address] [place] [phone] Referral ID Status Reason Start Expiration Visits Visits Date Date Requested Authorized [id number] Authorization Not 10/11/2021 1 1 Required Encounter Details Date Type Department Care Team Description 10/11/2021 Orders Only [facility] Joe Marquez oid light chain Hematology & Oncology Franco Pace nephropathy (HCC) - [address] (Primary Dx) [address] [place] [address] [facility] [phone] [address] (Wo rk) Social History Tobacco [...] dexAMETHasone (DECADRON) 4 Take 1 Tablet by 40 Tablet 0 10/12/2021 mg tablet mouth daily for 4 days. documented in this encounter Plan of Treatment Upcoming Encounters Date Type Specialty Care Team Description 01/28/2022 Phlebotomy Only Hematology and Oncology Blood Doctor, [facility] Hem Onc 01/28/2022 Appointment Infusion Therapy 02/04/2022 Phlebotomy Only Hematology and Oncology Blood Doctor, [facility] Hem Onc 02/04/2022 Office Visit Hematology and Oncology Henrik Marquez MD [address] [phone] (Wo rk) 02/04/2022 Appointment Infusion Therapy 02/11/2022 Phlebotomy Only Hematology and Oncology Blood Doctor, [facility] Hem Onc 02/11/2022 Appointment Infusion Therapy 02/18/2022 Phlebotomy Only Hematology and Oncology Blood Doctor, [facility] Hem Onc 02/18/2022 Appointment Infusion Therapy 03/09/2022 Office Visit Hematology and Oncology Dayanna Roman NP [address] [phone] (Wo rk) Scheduled Orders Name Type Priority Associated Diagnoses Order S chedule XR CHEST 2 VIEWS Imaging Routine Amyloid light chain Expe cted: 10/11/2021, nephropathy (HCC) Expires: 0 10/11/2022 documented as of this encounter Visit Diagnoses Diagnosis Amyloid light chain nephropathy (HCC) - Primary documented in this encounter Care Teams Package Handler Relationship Specialty Start Date End Date Esau Serrano PA-C PCP - General 09/03/21 [address] [place] [address] Saray Nicholson, JOVAN Naturopathic Medicine 09/03/[address] [place] [address] documented as of this encounter
--- OUTSIDE RECORDS SUMMARY | 2022-01-24 10:49 | XMS_ITS | Encounter Summary ---
:1960 Author Organization [facility] Address [address] [place] [address] Care Team Providers Name Role Phone Esau Serrano PA-C Primary Care Provider [phone] Saray Nicholson ND Unavailable [phone] Reason for Referral Consult (See Order Priority) - Closed Specialty Diagnoses / Procedures Referred By Contact Refer red To Contact Otolaryngology 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[facility]) ([facility]) Elaina Knutson, Wp4 Ent Henrik Dotson MD [address] [facility] [address] [place], [place] [id number] [place] [address], [facility] Phone: [facility] [address] [place] [address] Referral ID Status Reason Start Date Expiration Date Visits V isits Requested Authorized [id number] Closed Specialty 10/20/2021 1 1 Services Required Question Answer Scheduling Comments (optional ? Patient with amyloidosis (oncology), describe specific scheduling needs if chronic cough a n pharyngeal irritation, applicable): needs laryngoscopy Reason for Request: Other Please specify: Patient with amyloidosis (on cology), chronic cough an pharyngeal irritation, needs laryngoscopy Reason for Visit Reason Comments Follow-up Encounter Details Date Type Department Care Team Description 10/20/2021 Office Visit [facility] ANALI Marquez myloidosis Hematology & Henrik Dotson MD ([facility]) ([facility]) Oncology - Main [address] [place] (Primary D x) [address] [place] [id number] [address], [place] [phone] (Wo rk) Social History Tobacco Use Types [...] Sign Reading Time Taken Comments Blood Pressure 137/92 10/20/2021 1342 EDT Pulse 92 10/20/2021 1342 EDT Temperature 36.1 ??C (96.9 ??F) 10/20/2021 1342 EDT Respiratory Rate 16 10/20/2021 1342 EDT Oxygen Saturation 98% 10/20/2021 1342 EDT Inhaled Oxygen Concentration - - Weight 112 kg (246 lb 14.4 oz) 10/20/2021 1342 EDT Height - - Body Mass Index 33.96 09/10/2021 1542 EDT documented in this encounter Functional Status [...] Date End Date LORazepam (ATIVAN) 0.5 mg Take 1 Tablet by 14 Tablet 0 09/2311/03/2021 tablet mouth at bedtime as needed for up to 14 days for Anxiety or Sleep. Daily Max: 0.5 mg documented in this encounter Progress Notes Henrik Maruqez MD - 10/20/2021 1400 EDT 10/20/2021 FOLLOW UP PATIENT: Jong Copeland CHIEF COMPLAINT Follow-up HISTORY OF PRESENT ILLNESS Interim Hx: Last seen 10/06/2021 Since his last visit, he has completed further work up including: -TTE which showed normal EF, no dilated CM or thickened LV -CXR w/o pleural effusions -Repeat CBC w/o evidence of cytopenia He has not been feeling well in the last week. He is fatigued and reports ongoing poor energy and poor appetite. He also has worsening BLE swelling for which he started torsemide with good response in the last few days He denies any recent changes in his urine characteristics. No unintentional weight loss, no palpableLAD. His main persistent symptom is a hacking dry cough, associated with oropharynx irritation but no wheezing or stridor. 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 He was in his USOH until ~-05/2021 when he developed uncontrolled HTN and was found to have hypoalbuminemia + nephrotic range proteinuria w/ normal Cr. He was initially worked-up in [facility] and had extensive negative immunology testing testing. He then saw nephrology at [facility] and underwent renal biopsy on 08/18/2021 which showed extra-glomerular amyloid deposits w/ anti-lambda, anti-IgM and C3 stains (confirmed AL lambda) w/ randomly arranged fibrils in EM. He was referred to heme/onc in 09/10/2021 for concern of amyloidosis. Extensive work-up showed neutrophilic leukocytosis, borderline polycythemia (Hb ~17) but no other hematologic changes. FLC Otwell ~7, Lambda ~2.65 but otherwise no abnormalities [...] Eyes: Negative. Respiratory: Positive for cough. Cardiovascular: Negative. Gastrointestinal: Negative. Endocrine: Negative. Genitourinary: Negative. Musculoskeletal: Negative. Skin: Negative. Allergic/Immunologic: Negative. Neurological: Negative. Hematological: Negative. Psychiatric/Behavioral: The patient is nervous/anxious. All other systems reviewed and are negative. DIAGNOSTIC DATA Basic Metabolic Panel Lab Results Component Value Date NA 135 (L) 10/20/2021 K 4.0 10/20/2021 CL 105 10/20/2021 CO2 28 10/20/2021 BUN 21 10/20/2021 CREATININE 1.11 10/20/2021 CALCGFR 76 10/20/2021 CALCIUM 7.3 (L) 10/20/2021 MG 2.0 09/10/2021 Gastrointestinal Lab Results Component Value Date LDH 251 (H) 09/10/2021 ALKPHOS 93 10/20/2021 AST 34 10/20/2021 ALT 18 10/20/2021 TBIL <0.5 10/20/2021 TP 5.7 (L) 10/20/2021 LABALBU 2.4 (L) 10/20/2021 AGRATIO 0.7 (L) 10/20/2021 Complete Blood Count Lab Results Component Value [...] Free Light Chains 7.07 (H) 7.11 (H) Otwell Free Lt Chain 2.64 (H) 2.66 (H) Otwell/Lambda Ratio 0.37 0.37 IgG 319 (L) IgA [...] monoclonal lambda light chains identified PATHOLOGY KIDNEY, [place], NEEDLE CORE BIOPSIES (08/18/2021): -Amyloidosis, AL (lambda)- type Glomerular and extra-glomerular vascular amyloid deposits are present. On immunofluorescence, the amyloid deposits show monotypic staining with anti- lambda as well as staining with C3 and the greatest immunoglobulin staining with anti-IgM. These findings suggest AL amyloidosis. [facility] of the amyloidosis which confirms that this represents AL (lambda) amyloidosis (see separate Chand report). Electron microscopy shows deposition of small [...] by plasma cell myeloma or lymphoma VITALS Vitals: 10/20/21 1342 BP: (!) 137/92 Pulse: 92 Resp: 16 Temp: 36.1 ??C (96.9 ??F) TempSrc: Skin SpO2: 98% Weight: (!) 112 kg (246 lb 14.4 oz) Pain score: 0 ECOG Performance Status: 0 [...] The encounter diagnosis was AL amyloidosis (HCC-CMS) ([facility]). ASSESSMENT AND PLAN 61 yo M w/ [...] up and is here for follow up. 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 B) Hepatic: No clear evidence of involvement, imaging w/o hepatomegaly, LFTs normal including AKLP C) Cardiac: TTE was normal, no dilated CM or thickened cavities, EF 60%, EKG was normal. However he does have persistently mildly elevated troponin T (0.15 - 0.17), grossly abnormal lipid panel w/ cholesterol 356, and elevated proBNP at 1320. D) Nervous system: No evidence of orthostatism or polyneuropathy E) Hematologic: No cytopenia, FX level pending today At this point I do not see a contraindication for upfront SCT given no more than 2 organs involved (kidney and potentially cardiac, though it would be mild). Although he has elevated troponin and proBNP, hard to interpret given massive proteinuria. However, I explained that our usual approach at [facility] is to start with induction chemotherapy and assess response rather than upfront SCT. I strongly favor Gretel[facility] for atleast 2-4 cycles prior to final consideration of SCT. I will schedule him for above regimen but he will also consult with the amyloid center in to consider participation in clinical trials or to reconsider if there is a better option for him than above. He is evaluated next week. In the meantime: -Continue??vitamin D supplementation?? -Continue??current??regimen of??torsemide -Continue??statin for hyperlipidemia?? -I will work up his dry cough, PET and CXR unremarkable for lung abnormalities, upper airway seems to be the main issue so will refer to ENT but I think he also needs a dedicated CT chest. ?? Henrik Knutson MD documented in this encounter Plan of Treatment Upcoming Encounters Date Type Specialty Care Team Description 01/28/2022 Phlebotomy Only Hematology and Oncology Blood Doctor, [facility] Hem Onc 01/28/2022 Appointment Infusion Therapy 02/04/2022 Phlebotomy Only Hematology and Oncology Blood Doctor, [facility] Hem Onc 02/04/2022 Office Visit Hematology and Oncology Henrik Marquez MD [address] [facility], [facility] [address] [place] [address] (Wo rk) 02/04/2022 Appointment Infusion Therapy 02/11/2022 Phlebotomy Only Hematology and Oncology Blood Doctor, [facility] Hem Onc 02/11/2022 Appointment Infusion Therapy 02/18/2022 Phlebotomy Only Hematology and Oncology Blood Doctor, [facility] Hem Onc 02/18/2022 Appointment Infusion Therapy 03/09/2022 Office Visit Hematology and Oncology Dayanna Roman NP [address] [facility], [facility] [address] [place] [address] (Wo rk) Scheduled Referrals Name Type Priority Associated Order Schedule Diagnoses AMB Outpatient Referral Routine/Next AL amyloidosis Expect ed: CONS/FOLLOW Available ([facility]) (HCC) 10/27/2021 UP ENT (Approximate), Expires: 10/20/2022 documented as of this encounter Procedures Procedure Name Priority Date/Time Associated Comments Diagnosis COMPREHENSIVE Add-On 10/20/2021 13:30 AL amyloidosis Results for this METABOLIC PANEL (CMP) EDT ([facility]) (HCC) pro cedure are in the results section. documented in this encounter Results (ABNORMAL) COMPREHENSIVE METABOLIC PANEL (CMP) (10/20/2021 13:30 EDT) Pathologist Sig nature Sodium 135 (L) 136 - 145 [facility] mmol/L [facility] Potassium 4.0 3.5 - 5.0 [facility] mmol/L [facility] Chloride 105 96 - 110 mmol/L [facility] CO2 Total 28 22 - 32 mmol/L [facility] Glucose 101 (H) 70 - 100 mg/dL [facility] BUN 21 10 - 26 mg/dL [facility] Creatinine 1.11 0.66 - 1.25 [facility] mg/dL [facility] eGFR 76 >60 [facility] mL/min/1.73m2 [facility] Total Protein 5.7 (L) 6.3 - 8.2 g/dL [facility] Albumin 2.4 (L) 3.4 - 4.9 g/dL [facility] Alkaline Phosphatase 93 38 - 126 U/L [facility] AST 34 15 - 46 U/L [facility] ALT 18 <50 U/L [facility] Bilirubin, Total <0.5 <1.4 mg/dL [facility] Calcium 7.3 (L) 8.5 - 10.5 [facility] mg/dL [facility] Albumin/Globulin 0.7 (L) 1.0 - 2.5 [facility] Ratio [facility] Anion Gap 2 (L) 5 - 14 [facility] Specimen Blood - Venous blood (substance) Performing Organization Address City/State/ZIP Code Phon e Number [facility] [address] [place] [address] SERVICES documented in this encounter Visit Diagnoses Diagnosis AL amyloidosis ([facility]) (HCC) - Primary Other amyloidosis documented in this encounter Care Teams Medtronics Technician Relationship Specialty Start Date End Date Esau Serrano PA-C PCP - General 09/03/21 [address] [place] [address] Saray Nicholson, JOVAN Naturopathic Medicine 09/03/[address] [place] [id number] documented as of this encounter
--- OUTSIDE RECORDS SUMMARY | 2022-01-24 10:49 | XMS_ITS | Encounter Summary ---
:1960 Author Organization [facility] Address [address] [place] [address] Care Team Providers Name Role Phone Esau Serrano PA-C Primary Care Provider [phone] Saray Nicholson ND Unavailable [phone] Reason for Visit Reason Onset Date Comments Follow-up 10/28/2021 Requesting Sooner Appointment 10/28/2021 Encounter Details Date Type Department Care Team Description 10/28/2021 Telephone [facility] Christiano Vasquez RN Follow-up; Requesting Nephrology - [address] [place] [address] [address] [place] [address] Social History Tobacco Use Types Packs/Day Years [...] this encounter Miscellaneous Notes Telephone Encounter - Zo Vasquez RN - 10/28/2021 1502 EDT See last note re: follow up from Dr. Amin Sooner follow up needed, note to Dr. Amin to see him possibly tomorrow or ? elephone Encounter - oZ Vasquez RN - 10/28/2021 1501 EDT ----- Message from Zo Vasquez RN sent at 10/27/2021 11:35 EDT ----- Regarding: RE: Pt to be seen by Dr Downing Add on for Dr. Downing tomorrow. PENDING ----- Message ----- From: Consuelo Atkins RN Sent: 10/22/2021 16:42 EDT To: Nephrology Nurse Jose, Nephrology Pss Jose Subject: Pt to be seen by Dr aSlina Delaney received the below email about Kimani. What do you need us to do to get him set up to be seen by Dr Downing? Tushar ---- Henrik, I just reviewed your recent notes from 10/20/2021. I would be happy to see him. The reported major cramping with all the diuretics so far tried with him is very odd. One may have to consider other types of diuretics like the mineralocorticoid receptor antagonists (MRAs). Please have your office help set him up to see me soon. Thank you. Brennan Downing MD MSc ASHA FWMORENOP CAAR [employer] Land Lease Information Clerk dianeticist [employer] Vernon Andrews M.D. [place], [place] ASHA Executive ---- documented in this encounter Plan of Treatment Upcoming Encounters Date Type Specialty Care Team Description 01/28/2022 Phlebotomy Only Hematology and Oncology Blood Doctor, [facility] Hem Onc 01/28/2022 Appointment Infusion Therapy 02/04/2022 Phlebotomy Only Hematology and Oncology Blood Doctor, [facility] Hem Onc 02/04/2022 Office Visit Hematology and Oncology Henrik Marquez MD [address] [facility] 2 [place] [phone] (Wo rk) 02/04/2022 Appointment Infusion Therapy 02/11/2022 Phlebotomy Only Hematology and Oncology Blood Doctor, [facility] Hem Onc 02/11/2022 Appointment Infusion Therapy 02/18/2022 Phlebotomy Only Hematology and Oncology Blood Doctor, [facility] Hem Onc 02/18/2022 Appointment Infusion Therapy 03/09/2022 Office Visit Hematology and Oncology Dayanna Roman NP [address] [phone] (Wo rk) documented as of this encounter Visit Diagnoses Not on filedocumented in this encounter Care Teams Termite Control Servicer Relationship Specialty Start Date End Date Esau Serrano PA-C PCP - General 09/03/[address] [place] [phone] Saray Nicholson ND Naturopathic Medicine 09/03/[address] [place] [id number] documented as of this encounter
--- OUTSIDE RECORDS SUMMARY | 2022-01-24 10:49 | XMS_ITS | Encounter Summary ---
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[facility]) ([facility]) Elaina Knutson [facility] Procedures PET CT WHOLE BODY Henrik Dotson MD [address] [address] Referral ID Status Reason Start Expiration Visits Visits Date Date Requested Authorized [id number] Authorization Not 09/13/2021 1 1 Required Reason for Visit Radiology Services (Routine/Next Available) - Authorization Not Required Specialty Diagnoses / Procedures Referred By Contact Refer red To Contact Nuclear Medicine 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[facility]) ([facility]) Elaina Knutson [facility] Procedures PET CT WHOLE BODY Henrik Dotson MD [address] [address] Referral ID Status Reason Start Expiration Visits Visits Date Date Requested Authorized [id number] Authorization Not 09/13/2021 1 1 Required Encounter Details Date Type Department Care Team Description 10/01/2021 Hospital En[facility] garcia loisabella nephropathy Radiology Nuclear ([facility]) ([facility]) Medicine and PET - [address] [address] Social History Tobacco Use Types Packs/Day Years [...] Dispensed Refills Start Date End Date cholecalciferol, Take 2,000 Units by 0 07/12/2021 11/04/2021 Vitamin D3, 50 mcg mouth daily. (2,000 unit) tablet COQ10, UBIQUINOL, ORAL coQ10 (ubiquinol) 0 11/04/2021 200mg capsule /day NONFORMULARY 2 times daily. HTN 0 10/22 Fluid riboflavin, vitamin B2, riboflavin (vitamin B2) 0 11/04/2021 (B-2) 100 mg tablet 1 cap 400mg/day tablet rosuvastatin (CRESTOR) Take 40 mg by mouth 0 06/2211/04/2021 40 mg tablet daily. soybean, fermented Nattokinase 0 11/04 (NATTOKINASE) 50 mg 1 cap (100mg) 1xday-to prevent clots capsule warfarin (COUMADIN) 5 Take 5 mg by mouth 0 11/04/2021 mg tablet daily. 5mg, and 2.5mg every other [...] Hematology and Oncology Henrik Marquez MD 111 [facility], [address] [address] (Wo rk) 02/04/2022 Appointment Infusion Therapy 02/11/2022 Phlebotomy Only Hematology and Oncology Blood Doctor, [facility] Hem Onc 02/11/2022 Appointment Infusion Therapy 02/18/2022 Phlebotomy Only Hematology and Oncology Blood Doctor, [facility] Hem Onc 02/18/2022 Appointment Infusion Therapy 03/09/2022 Office Visit Hematology and Oncology Dayanna Roman NP [address] [address] (Wo rk) documented as of this encounter Procedures Procedure Name Priority Date/Time Associated Diagnosis Comme nts PET CT WHOLE BODY Routine 10/01/2021 12:41 AL amyloid Result s for this EDT nephropathy procedure are i n ([facility]) ([facility]) the results section. POCT GLUCOSE, Routine 10/01/2021 10:07 Results fo r this INTERFACED EDT procedure are i n the results section. documented in this encounter Results PET CT WHOLE BODY (10/01/2021 12:41 EDT) Anatomical Region Laterality Modality Body Positron Emission To mography (PET) Specimen Impressions [facility] - 10/01/2021 15:14 EDT 1. ??No findings suspicious for primary neoplasm or metastatic disease. 2. ??Symmetric mild uptake noted in the level 2 and right level 3 cervical lymph nodes, likely reactive, 3. ??2 mm smaller right upper lobe nodul es, subpleural and fissural adjacent location, likely normal intrapulmonary lymph nodes. Dedicated inspiratory chest CT is recommended in 3 months to ensure stability. 4. ??Small left and trace right pleural effusions. 5. ??Mild coronary calcifications. 6. ??Left nonobstructive nephrolithiasis . I have personally reviewed the images an d the above interpretation and agree with the findings. Narrative [facility] - 10/01/2021 15:[address] WHOLE BODY 10/01/2021 10:30 AM Signs and Symptoms: ??Amyloid Comparison: Renal and urinary bladder ul trasound 07/21/2021. Technique: Approximately 90 minutes following the I V injection of 12.81 mCi of F18- fluorodeoxyglucose, 3D TOF PET imaging was obtained from the skull vertex to the toes using a [employer] digital ??PET/CT sys tem. ??The blood glucose level prior to injection was 105 mg/dl. ??The injection site was the right antecubital fossa. Oral contrast was administered. Findings: HEAD/NECK: Symmetric mild uptake seen in the bilate ral level II and right level III lymph nodes, normal in size for example axial CT image #247, SUV max 2.1, likely reactive. No other suspicious FDG uptake seen in the head or neck. The thyroid is unremarkable. CHEST: No suspicious FDG uptake seen in the pam st. Tiny 2 mm subpleural and fissural adjace nt nodules in the right upper lobe, for example axial CT image #390 to adjacent to the minor fissure, axial CT image #371 anterior right upper lobe, and subpleura l region of the right middle lobe (axial CT image #415) are not well characterized on PET due to their small size, likely normal intrapulmonary lymph nodes. Small left and trace right pleural effusions. Mild coronary calcium. Minimal atherosc lerotic plaque is seen in the thoracic aorta. ABDOMEN/PELVIS: No suspicious FDG uptake is seen in the abdomen or pelvis. Fluid attenuating cyst in the right infe rior posterior kidney with corresponding photopenia on PET measuring 1.7 cm. Left nonobstructive nephrolithiasis. Sequela of prior umbilical hernia repair. Vasect miguel clips are noted in the groin. Periph eral testicular calcifications with normal physiologic FDG uptake is noted, favored to reflect sequela of vasectomy and not viewed with concern. MUSCULOSKELETAL: No suspicious focal marrow FDG uptake or osseous destructive lesions on the CT for attenuation correction. T9 and T12 hemangiomas with corresponding photopenia on PET. Procedure Note Thiago Tracy MD - 10/01/[address] WHOLE BODY 10/01/2021 10:30 AM Signs and Symptoms: Amyloid Comparison: Renal and urinary bladder ul trasound 07/21/2021. Technique: Approximately 90 minutes following the I V injection of 12.81 mCi of F18- fluorodeoxyglucose, 3D TOF PET imaging was obtained from the skull vertex to the toes using a [employer]or[employer] digital PET/CT system. The blood glucose level prior to injection w as 105 mg/dl. The injection site was the right antecubital fossa. Oral contrast was administered. Findings: HEAD/NECK: Symmetric mild uptake seen in the bilate ral level II and right level III lymph nodes, normal in size for example axial CT image #247, SUV max 2.1, likely reactive. No other suspicious FDG uptake seen in the head or neck. The thyroid is unremarkable. CHEST: No suspicious FDG uptake seen in the pam st. Tiny 2 mm subpleural and fissural adjace nt nodules in the right upper lobe, for example axial CT image #390 to adjacent to the minor fissure, axial CT image #371 anterior right upper lobe, and subpleural region of the right middle lobe (axial CT image #4 15) are not well characterized on PET due to their small size, likely normal intrapulmonary lymph nodes. Small left and trace right pleural effusions. Mild coronary calcium. Minimal atherosclerotic plaque is seen i n the thoracic aorta. ABDOMEN/PELVIS: No suspicious FDG uptake is seen in the abdomen or pelvis. Fluid attenuating cyst in the right infe rior posterior kidney with corresponding photopenia on PET measuring 1.7 cm. Left nonobstructive nephrolithiasis. Sequela of prior umbilical hernia repair. Vasectomy clips are noted in the groin. Peripheral testi cular calcifications with normal physiologic FDG uptake is noted, favored to reflect sequela of vasectomy and not viewed with concern. MUSCULOSKELETAL: No suspicious focal marrow FDG uptake or osseous destructive lesions on the CT for attenuation correction. T9 and T12 hemangiomas with corresponding photopenia on PET. IMPRESSION 1. No findings suspicious for primary ne oplasm or metastatic disease. 2. Symmetric mild uptake noted in the le will 2 and right level 3 cervical lymph nodes, likely reactive, 3. 2 mm smaller right upper lobe nodules , subpleural and fissural adjacent location, likely normal intrapulmonary lymph nodes. Dedicated inspiratory chest CT is recommended in 3 months to ensure stability. 4. Small left and trace right pleural ef fusions. 5. Mild coronary calcifications. 6. Left nonobstructive nephrolithiasis. I have personally reviewed the images an d the above interpretation and agree with the findings. Performing Organization Address City/State/ZIP Code Phon e Number [facility] (ABNORMAL) POCT GLUCOSE, INTERFACED (10/01/2021 10:07 EDT) Glucose, POC 105 (H) 70 - 100 [facility] mg/dL LABORATORY SERVICES HN LAB POC COMMENT Test Performed by [facility] TechulonAnthony R (GLUCOSE) Nursing Services LABORATORY SERVICES Specimen Blood - Capillary blood (substance) Performing Organization Address City/[facility]/ZIP Code Phon e Number [facility] [address] [place] [address] SERVICES documented in this encounter Visit Diagnoses Diagnosis AL amyloid nephropathy ([facility]-CMS) (HCC) Other amyloidosis documented in this encounter Administered Medications Inactive Administered Medications - up to 3 most recent administrations Medication Order MAR Action Action Date Dose Rate Site fludeoxyglucose (F-18) Given 10/01/2021 10:15 12.81 millicuries Right ACF FDG injection 15 EDT millicurie 15 millicurie, radiopharm IV, NOW X1, 1 dose, On Mon10/01/21 at 1045, Routine, Imaging Protocol Orders documented in this encounter Care Teams Cardiac Rehabilitation Specialist Relationship Specialty Start Date End Date Esau Serrano PA-C PCP - General 09/03/21 [address] [place] [address] Saray Nicholson ND Naturopathic Medicine 09/03/[address] [place] [phone] documented as of this encounter
--- OUTSIDE RECORDS SUMMARY | 2022-01-24 10:49 | XMS_ITS | Encounter Summary ---
:1960 Author Organization [facility] Address [address] [place] [address] Care Team Providers Name Role Phone Esau Serrano PA-C Primary Care Provider [phone] Saray Nicholson ND Unavailable [phone] Reason for Visit Reason Onset Date Comments Coordination Of Care 10/19/2021 Encounter Details Date Type Department Care Team Description 10/19/2021 [facility]phone [facility] H[facility] & Oncology Franco Pace [address] [address] [place], [place] [address] (Wo rk) Social History Tobacco [...] encounter Miscellaneous Notes Telephone Encounter - Consuelo Atkins, JACKIE - 10/19/2021 1337 EDT Returned call to [place]. She reports that she feels Kimani has had a steady decline in energy and appetite over the past few days. She reports that she first noted this on Monday. She says this is very unusual for him. She wants to know if we can get her set up at sooner that their planned 11/08 appointment. I asked her to reach out to directly to request an earlier appointment, but I will share this with Dr. Delaney as well. They are due to be seen in our clinic tomorrow 10/20/21. Telephone Encounter - Blair Gallagher - 10/19/2021 1123 EDT Patients is calling to see she might be able to speak with Dr Elaina Benz regarding the patient. He has an appointment to see Dr Knutson tomorrow, but she is very concerned about him, he is in bed all the time. She is wondering if he could possibly get the patient in toe the [facility] Amyloidosis clinic sooner than the 11/08/21 appointment they have. documented in this encounter Plan of Treatment Upcoming Encounters Date Type Specialty Care Team Description 01/28/2022 Phlebotomy Only Hematology and Oncology Blood Doctor, [facility] Hem Onc 01/28/2022 Appointment Infusion Therapy 02/04/2022 Phlebotomy Only Hematology and Oncology Blood Doctor, [facility] Hem Onc 02/04/2022 Office Visit Hematology and Oncology Henrik Marquez MD [address] [place] A [address] [facility], [facility], [address] [place] [address] (Wo rk) 02/04/2022 Appointment Infusion Therapy 02/11/2022 Phlebotomy Only Hematology and Oncology Blood Doctor, [facility] Hem Onc 02/11/2022 Appointment Infusion Therapy 02/18/2022 Phlebotomy Only Hematology and Oncology Blood Doctor, [facility] Hem Onc 02/18/2022 Appointment Infusion Therapy 03/09/2022 Office Visit Hematology and Oncology Dayanna Roman, KODI [address] [facility], [facility] [address] [place] [phone] (Wo rk) documented as of this encounter Visit Diagnoses Not on filedocumented in this encounter Care Teams Sand Caster Relationship Specialty Start Date End Date Esau Serrano PA-C PCP - General 09/03/21 [address] [place] [address] Saray Nicholson ND Naturopathic Medicine 09/03/[address] [place] [phone] documented as of this encounter
--- OUTSIDE RECORDS SUMMARY | 2022-01-24 10:49 | XMS_ITS | Encounter Summary ---
:1960 Author Organization [facility] Address [address] [place] [address] Care Team Providers Name Role Phone Esau Serrano PA-C Primary Care Provider [phone] Saray Nicholson ND Unavailable [phone] Encounter Details Date Type Department Care Team Description 10/01/2021 Lab Requisition [facility] Outr Resulting Lab, Pathology & Laboratory Provider [facility] [address] [place] [phone] Social History Tobacco Use Types Packs/Day Years [...] Phlebotomy Only Hematology and Oncology Blood Doctor, [facility] Hem Onc 01/28/2022 Appointment Infusion Therapy 02/04/2022 Phlebotomy Only Hematology and Oncology Blood Doctor, [facility] Hem Onc 02/04/2022 Office Visit Hematology and Oncology Henrik Marquez MD [address] [phone] (Wo rk) 02/04/2022 Appointment Infusion Therapy 02/11/2022 Phlebotomy Only Hematology and Oncology Blood Doctor, [facility] Hem Onc 02/11/2022 Appointment Infusion Therapy 02/18/2022 Phlebotomy Only Hematology and Oncology Blood Doctor, [facility] Hem Onc 02/18/2022 Appointment Infusion Therapy 03/09/2022 Office Visit Hematology and Oncology Dayanna Roman NP 111 [facility] 2 [place] [address] (Wo rk) documented as of this encounter Procedures Procedure Name Priority Date/Time Associated Comments Diagnosis URINE MONOCLONAL Today 10/01/2021 6:00 EDT Resu lts for this PROTEIN STUDY ([facility] procedur e are in WITH IMMUNOTYPING), the resu lts 24 HR section. URINE MONOCLONAL Routine 10/01/2021 6:00 EDT Resu lts for this PROTEIN STUDY ([facility] procedur e are in WITH IMMUNOTYPING), the resu lts 24 HR section. PROTEIN, TOTAL, 24 Today 10/01/2021 6:00 EDT HR, URINE documented in this encounter Results (ABNORMAL) URINE MONOCLONAL PROTEIN STUDY ([facility] WITH IMMUNOTYPING), 24 HR (10/01/2021 6:00 EDT) Total Protein, 14,900 (H) <150 [facility] Urine 24 hr mg/24hrs [facility] Albumin, Urine % 77.5 N/A % [facility] Albumin, Urine 11,548 mg/24hrs [facility] mg/24hrs [facility] Globulins, Urine 22.5 N/A % [facility] % [facility] Globulins, Urine 3,353 mg/24hrs [facility] mg/24hrs [facility] LAB[facility] Comment See CommentComment: [facility] Electrophoresis [facility] LABORATORY screening performed; SERVICES Immunotyping to follow. See scanned/supplementary report. Urine Volume 2,500 mL [facility] LABORAT[facility] SERVICES Urine Collection 24.[address] [facility] LABORATORY SERVICES Immunotyping, Current [facility] Urine Interpretation: [facility] LABORATORY monoclonal lambda SERVICES light chains identified that migrate in the beta region. Interpreted by: Ruben Wang MD 10/06/2021 1002 Total Protein, 596 See Note [facility] Urine Comment: mg/dL [facility] LAB[facility] NOTE: SERVICES Reference range not established Specimen Urine - 24 hour urine specimen (specimen ) Narrative This result has an attachment that is no t available. Performing Organization Address City/State/ZIP Code Phon e Number [facility] [address] [place] [address] SERVICES PROTEIN, TOTAL, 24 HR, URINE (10/01/2021 6:00 EDT) Specimen Urine - 24 hour urine specimen (specimen ) Performing Organization Address City/State/ZIP Code Phon e Number [facility] [address] [place] [address] SERVICES documented in this encounter Visit Diagnoses Not on filedocumented in this encounter Care Teams Pharmaceutical Detailer Relationship Specialty Start Date End Date Esau Serrano PA-C PCP - General 09/03/21 [address] [place] [address] Saray Nicholson ND Naturopathic Medicine 09/03/[address] [place] [phone] documented as of this encounter
--- OUTSIDE RECORDS SUMMARY | 2022-01-24 10:49 | XMS_ITS | Encounter Summary ---
:1960 Author Organization [facility] Address [address] [place] [address] Care Team Providers Name Role Phone Esau Serrano PA-C Primary Care Provider [phone] Saray Nicholson ND Unavailable [phone] Reason for Visit Reason Onset Date Comments Follow-up 10/21/2021 Encounter Details Date Type Department Care Team Description 10/21/2021 Telephone [facility] Chanelle Downing MD Follow-up Nephrology - S Prosp ect [address] [place], [place] [address] [place] [phone] (Wo rk) Social History Tobacco Use [...] Telephone Encounter - Zo Vasquez RN - 10/29/2021 1415 EDT Soonest date and time needed for you to see this pt or call PCP? elephone Encounter - Navdeep Downing MD - 10/21/2021 1519 EDT Follow up on nephrotic syndrome. 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 He is now being managed by Hematology. Extensive work-up showed neutrophilic leukocytosis (WBC ~15K) and borderline polycythemia (Hb ~17) but no other hematologic changes. FLC showed [place] ~7 and Lambda ~2.65 but otherwise no abnormalities.KLR was normal and SPEP + 24h [facility] were negative for monoclonal protein twice. Baseline evaluation showed fatigue for ~6 months but no other complaints except for BLE edema. He had no other constitutional Sx. At initial evaluation, he was intolerant to many antihypertensives and had started PPx AC w/ warfarin by nephrology. Into;j luis to Chlorthalidone (major cramping), Furosemide (major cramping), Hydrochlorothiazide (major cramping) and Lisinopril (continous cough). 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 Alternative diuretics to use here would include Torsemide, Amiloride, Spironolactone, Acetazolamide,Metolazone and/or Ethacrynic acid. The implications of the reported major cramping with the above listed diuretics is unclear. It will be appropriate to recheck magnesium and phosphorus, together with the other electrolytes. documented in this encounter Plan of Treatment Upcoming Encounters Date Type Specialty Care Team Description 01/28/2022 Phlebotomy Only Hematology and Oncology Blood Doctor, [facility] Hem Onc 01/28/2022 Appointment Infusion Therapy 02/04/2022 Phlebotomy Only Hematology and Oncology Blood Doctor, [facility] Hem Onc 02/04/2022 Office Visit Hematology and Oncology Henrik Marquez MD [address] [phone] (Wo rk) 02/04/2022 Appointment Infusion Therapy 02/11/2022 Phlebotomy Only Hematology and Oncology Blood Doctor, [facility] Hem Onc 02/11/2022 Appointment Infusion Therapy 02/18/2022 Phlebotomy Only Hematology and Oncology Blood Doctor, [facility] Hem Onc 02/18/2022 Appointment Infusion Therapy 03/09/2022 Office Visit Hematology and Oncology Dayanna Roman NP 111 [facility] 2 [place] [phone] (Wo rk) documented as of this encounter Visit Diagnoses Not on filedocumented in this encounter Care Teams Pig Machine Operator Relationship Specialty Start Date End Date Esau Serrano PA-C PCP - General 09/03/[address] [place] [phone] Saray Nicholson ND Naturopathic Medicine 09/03/[address] [place] [address] documented as of this encounter
--- OUTSIDE RECORDS SUMMARY | 2022-01-24 10:49 | XMS_ITS | Encounter Summary ---
:1960 Author Organization [facility] Address [address] [place] [address] Care Team Providers Name Role Phone Esau Serrano PA-C Primary Care Provider [phone] Saray Nicholson ND Unavailable [phone] Reason for Visit Reason Onset Date Comments Follow-up 11/04/2021 Encounter Details Date Type Department Care Team Description 11/04/2021 Telephone [facility] Hematology Wesley Orozco, [facility] Follow-up & Oncology - Main Ca mpus [address] [place], [place] [phone] Social History Tobacco Use Types Packs/Day Years [...] Telephone Encounter - Jerod Orozco LICSW - 11/04/2021 0849 EDT LYNETTE HAND Note: Reason for Call: Case discussion w/ the provider, pt is likely moving forward with chemo here versus [facility]. I sent the pt a [employer] message suggesting he set up a payment plan with our billing dept. That way any bills he accrues throughout tx won't go into collections. I also reported that we're still working on the financial assistance application for [employer]. Pt Centered Identified Goal: Support w/ cost of tx, no insurance Plan: I will let the pt know when we have a determination for the financial assistance application with the [employer]. Working w/ the provider to amend the scripts that were sent per the request of [employer]. Jerod SUE documented in this encounter Plan of Treatment Upcoming Encounters Date Type Specialty Care Team Description 01/28/2022 Phlebotomy Only Hematology and Oncology Blood Doctor, [facility] Hem Onc 01/28/2022 Appointment Infusion Therapy 02/04/2022 Phlebotomy Only Hematology and Oncology Blood Doctor, [facility] Hem Onc 02/04/2022 Office Visit Hematology and Oncology Henrik Marquez MD [address] [phone] (Wo rk) 02/04/2022 Appointment Infusion Therapy 02/11/2022 Phlebotomy Only Hematology and Oncology Blood Doctor, [facility] Hem Onc 02/11/2022 Appointment Infusion Therapy 02/18/2022 Phlebotomy Only Hematology and Oncology Blood Doctor, [facility] Hem Onc 02/18/2022 Appointment Infusion Therapy 03/09/2022 Office Visit Hematology and Oncology Dayanna Roman, TABLE OPERATOR [address] [phone] (Wo rk) documented as of this encounter Visit Diagnoses Not on filedocumented in this encounter Care Teams Rehabilitation Services Counselor Relationship Specialty Start Date End Date Esau Serrano PA-C PCP - General 09/03/21 [address] [place] [address] Saray Nicholson ND Naturopathic Medicine 09/03/[address] [place] [address] documented as of this encounter
--- OUTSIDE RECORDS SUMMARY | 2022-01-24 10:49 | XMS_ITS | Encounter Summary ---
:1960 Author Organization [facility] Address [address] [place] [address] Care Team Providers Name Role Phone Esau Serrano PA-C Primary Care Provider [phone] Saray Nicholson ND Unavailable [phone] Reason for Visit Reason Onset Date Comments Follow-up 11/08/2021 Encounter Details Date Type Department Care Team Description 11/08/2021 Telephone [facility] Hematology Wesley Orozco, [facility] Follow-up & Oncology - Main Ca mpus [address] [place], [place] [id number] Social History Tobacco Use Types Packs/Day Years [...] Telephone Encounter - Ernesto LINETTE Newsome - 11/08/2021 1511 EDT LYNETTE HAND Note: Reason for Call: Pt messaged me asking if there's been a determination yet for his [employer] application to cover Darzalex Faspro. I called the [facility] and was told that a air conditioning supervisor is reviewing the application now. They told me that they would fax me a determination by the end of the day. I sent the pt a message inMyChart explaining this and that I hope to be able to send him a decision by tomorrow morning. Pt Centered Identified Goal: Financial assistance for Darzalex Faspro Plan: Waiting for the [facility] to send me their decision. Jerod SUE documented in this encounter Plan of Treatment Upcoming Encounters Date Type Specialty Care Team Description 01/28/2022 Phlebotomy Only Hematology and Oncology Blood Doctor, [facility] Hem Onc 01/28/2022 Appointment Infusion Therapy 02/04/2022 Phlebotomy Only Hematology and Oncology Blood Doctor, [facility] Hem Onc 02/04/2022 Office Visit Hematology and Oncology Henrik Marquez MD [address] [phone] (Wo rk) 02/04/2022 Appointment Infusion Therapy 02/11/2022 Phlebotomy Only Hematology and Oncology Blood Doctor, [facility] Hem Onc 02/11/2022 Appointment Infusion Therapy 02/18/2022 Phlebotomy Only Hematology and Oncology Blood Doctor, [facility] Hem Onc 02/18/2022 Appointment Infusion Therapy 03/09/2022 Office Visit Hematology and Oncology Dayanna Roman, KODI [address] [phone] (Wo rk) documented as of this encounter Visit Diagnoses Not on filedocumented in this encounter Care Teams Digital Media Coordinator Relationship Specialty Start Date End Date Esau Serrano PA-C PCP - General 09/03/21 [address] [place] [address] Saray Nicholson, JOVAN Naturopathic Medicine 09/03/[address] [place] [phone] documented as of this encounter
--- OUTSIDE RECORDS SUMMARY | 2022-01-24 10:49 | XMS_ITS | Encounter Summary ---
:1960 Author Organization [facility] Address [address] [place] [address] Care Team Providers Name Role Phone Esau Serrano PA-C Primary Care Provider [phone] Saray Nicholson ND Unavailable [phone] Reason for Visit Reason Onset Date Comments Follow-up 11/04/2021 Encounter Details Date Type Department Care Team Description 11/04/2021 Telephone [facility] Hematology Wesley Orozco, [facility] Follow-up & Oncology - Main Ca mpus [address] [place], [place] [id number] Social History Tobacco Use Types Packs/Day Years [...] Notes Telephone Encounter - Jerod OrozcoLINETTE - 11/04/2021 0931 EDT LYNETTE HAND Note: Reason for Call: [employer]eez[employer]by president financial institution chance for Kristen Wilsonpro was re-faxed to the [facility] with 3 different scripts as they had requested. I mailed them a copy as well since they reported that they could not see thept's signature the last time I faxed them the application. Pt Centered Identified Goal: Financial assistance for Kristen Wilsonpro Plan: I will check on his application next week. Jerod Orozco [facility] ADDENDUM 3:30 Haleigh sent me a message stating the [employer] [facility] called her and reported that Kimani's signature is still not viewable. I printed off a larger copy of his signature page and re-faxed everything a 3rdtime. I let Haleigh know. documented in this encounter Plan of Treatment Upcoming Encounters Date Type Specialty Care Team Description 01/28/2022 Phlebotomy Only Hematology and Oncology Blood Doctor, [facility] Hem Onc 01/28/2022 Appointment Infusion Therapy 02/04/2022 Phlebotomy Only Hematology and Oncology Blood Doctor, [facility] Hem Onc 02/04/2022 Office Visit Hematology and Oncology Henrik Marquez MD [address] [phone] (Isabel whyte) 02/04/2022 Appointment Infusion Therapy 02/11/2022 Phlebotomy Only Hematology and Oncology Blood Doctor, [facility] Hem Onc 02/11/2022 Appointment Infusion Therapy 02/18/2022 Phlebotomy Only Hematology and Oncology Blood Doctor, [facility] Hem Onc 02/18/2022 Appointment Infusion Therapy 03/09/2022 Office Visit Hematology and Oncology Dayanna Roman NP [address] [phone] (Isabel whyte) documented as of this encounter Visit Diagnoses Not on filedocumented in this encounter Care Teams Slot Key Person Relationship Specialty Start Date End Date Esau Serrano PA-C PCP - General 09/03/21 [address] [place] [address] Saray Nicholson ND Naturopathic Medicine 09/03/[address] [place] [address] documented as of this encounter
--- OUTSIDE RECORDS SUMMARY | 2022-01-24 10:49 | XMS_ITS | Encounter Summary ---
:1960 Author Organization [facility] Address [address] [place] [address] Care Team Providers Name Role Phone Esau Serrano PA-C Primary Care Provider [phone] aSray Nicholson ND Unavailable [phone] Reason for Visit Reason Onset Date Comments Follow-up 11/02/2021 Encounter Details Date Type Department Care Team Description 11/02/2021 Telephone [facility] Hematology Wesley Orozco, [facility] Follow-up & Oncology - Main Ca mpus [address] [place], [place] [phone] Social History Tobacco Use Types Packs/Day Years [...] Telephone Encounter - Jerod Orozco LICSW - 11/02/2021 1302 EDT LYNETTE HAND Note: Reason for Call: I messaged the provider and RN Milly regarding me conversation w/ [employer] yesterday. I explained that a healthcare provider form needs to be completed for each of the 3 dosages needed. Pt Centered Identified Goal: Copay assistance for Darzalex Faspro Plan: Working w/ team to re-submit the application w/ updated scripts. Jerod SUE documented in this encounter Plan of Treatment Upcoming Encounters Date Type Specialty Care Team Description 01/28/2022 Phlebotomy Only Hematology and Oncology Blood Doctor, [facility] Hem Onc 01/28/2022 Appointment Infusion Therapy 02/04/2022 Phlebotomy Only Hematology and Oncology Blood Doctor, [facility] Hem Onc 02/04/2022 Office Visit Hematology and Oncology Henrik Marquez MD [address] [phone] (Wo rk) 02/04/2022 Appointment Infusion Therapy 02/11/2022 Phlebotomy Only Hematology and Oncology Blood Doctor, [facility] Hem Onc 02/11/2022 Appointment Infusion Therapy 02/18/2022 Phlebotomy Only Hematology and Oncology Blood Doctor, [facility] Hem Onc 02/18/2022 Appointment Infusion Therapy 03/09/2022 Office Visit Hematology and Oncology Dayanna Roman, KODI [address] [phone] (Wo rk) documented as of this encounter Visit Diagnoses Not on filedocumented in this encounter Care Teams School Business Manager Relationship Specialty Start Date End Date Esau Serrano PA-C PCP - General 09/03/[address] [place] [phone] Saray Nicholson, JOVAN Naturopathic Medicine 09/03/[address] [place] [address] documented as of this encounter
--- OUTSIDE RECORDS SUMMARY | 2022-01-24 10:49 | XMS_ITS | Encounter Summary ---
:1960 Author Organization [facility] Address [address] [place] [address] Care Team Providers Name Role Phone Esau Serrano PA-C Primary Care Provider [phone] Saray Nicholson ND Unavailable [phone] Reason for Visit Reason Onset Date Comments Follow-up 10/18/2021 Encounter Details Date Type Department Care Team Description 10/18/2021 Telephone [facility] Center Hematology Wesley Orozco, [employer] O[employer] Follow-up & Oncology - Main Ca mpus [address] [place] [address] Social History Tobacco Use Types [...] Telephone Encounter - Jerod Orozco LICSW - 10/18/2021 1010 EDT LYNETTE HAND Note: Reason for Call: JACKIE Atkins sent me a referral d/t the fact the pt needs to start treatment as soon as possible but hedoes not have insurance coverage. I called the pt and he explained that he could not afford coverage because work was not consistent. 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 He hasn't worked in the last 3 months and his has worked very little. Their typical monthly income would makehim ineligible for Medicaid. But their income has changed the last 3 months. Pt shared that he may need to go to [facility] for tx as well. We discussed the need for him to be screened for Medicaid. Pt was accepting of a referral to our financial advocates for this. I sent them a referral after our call ended explaining he needs to start tx soon, asking if they could help expedite a Medicaid application. Pt Centered Identified Goal: No insurance coverage Plan: Waiting to hear back from the financial advocates. Jerod SUE documented in this encounter Plan of Treatment Upcoming Encounters Date Type Specialty Care Team Description 01/28/2022 Phlebotomy Only Hematology and Oncology Blood Doctor, [facility] Hem Onc 01/28/2022 Appointment Infusion Therapy 02/04/2022 Phlebotomy Only Hematology and Oncology Blood Doctor, [facility] Hem Onc 02/04/2022 Office Visit Hematology and Oncology Henrik Marquez MD 111 [facility] venue [facility] Level [address] [place] [phone] (Wo rk) 02/04/2022 Appointment Infusion Therapy 02/11/2022 Phlebotomy Only Hematology and Oncology Blood Doctor, [facility] Hem Onc 02/11/2022 Appointment Infusion Therapy 02/18/2022 Phlebotomy Only Hematology and Oncology Blood Doctor, [facility] Hem Onc 02/18/2022 Appointment Infusion Therapy 03/09/2022 Office Visit Hematology and Oncology Dayanna Roman, DIRECTOR OF LOSS PREVENTION 111 [facility] venue [facility], [address] [place] [phone] (Wo rk) documented as of this encounter Visit Diagnoses Not on filedocumented in this encounter Care Teams Naval Aircrewman Tactical Helicopter Relationship Specialty Start Date End Date Esau Serrano PA-C PCP - General 09/03/21 [address] [place] [address] Saray Nicholson ND Naturopathic Medicine 09/03/[address] [place] [phone] documented as of this encounter
--- OUTSIDE RECORDS SUMMARY | 2022-01-24 10:49 | XMS_ITS | Encounter Summary ---
:1960 Author Organization [facility] Address [address] [place] [address] Care Team Providers Name Role Phone Esau Serrano PA-C Primary Care Provider [phone] Saray Nicholson ND Unavailable [phone] Reason for Visit Reason Onset Date Comments Appointment Related 11/01/2021 Encounter Details Date Type Department Care Team Description 11/01/2021 Telephone [facility] Mini Raman NP Appointment Related Hematology & Oncology 111 [facility], [address], [address] [place], [place] [address] [place] [address] [phone] (Wo rk) Social History Tobacco Use [...] this encounter Miscellaneous Notes Telephone Encounter - Rocío Rodriguez - 11/01/2021 1730 EDT Reached out to pt to let him know to please obtain labs via [facility] prior to 11/05 infusion appt. [facility] Blood appt canceled. documented in this encounter Plan of Treatment [...] and Oncology Henrik Marquez MD [address] [phone] (Wo rk) 02/04/2022 Appointment Infusion Therapy 02/11/2022 Phlebotomy Only Hematology and Oncology Blood Doctor, [facility] Hem Onc 02/11/2022 Appointment Infusion Therapy 02/18/2022 Phlebotomy Only Hematology and Oncology Blood Doctor, [facility] Hem Onc 02/18/2022 Appointment Infusion Therapy 03/09/2022 Office Visit Hematology and Oncology Dayanna Roman NP [address] [phone] (Wo rk) documented as of this encounter Visit Diagnoses Not on filedocumented in this encounter Care Teams Disability Representative Relationship Specialty Start Date End Date Esau Serrano PA-C PCP - General 09/03/[address] [place] [phone] Saray Nicholson, JOVAN Naturopathic Medicine 09/03/[address] [place] [address] documented as of this encounter
--- OUTSIDE RECORDS SUMMARY | 2022-01-24 10:49 | XMS_ITS | Encounter Summary ---
:1960 Author Organization [facility] Address [address] [place] [address] Care Team Providers Name Role Phone Esau Serrano PA-C Primary Care Provider [phone] Saray Nicholson ND Unavailable [phone] Reason for Visit Reason Onset Date Comments Follow-up 10/29/2021 Encounter Details Date Type Department Care Team Description 10/29/2021 Telephone [facility] Center Hematology Wesley Orozco, [facility] Follow-up & Oncology - Main Ca mpus [address] [place], [place] [phone] Social History Tobacco Use Types Packs/Day Years [...] Telephone Encounter - Jerod Orozco LICSW - 10/29/2021 2609 EDT LYNETTE HAND Note: Reason for Call: Pt sent me his profit and loss statement from Apr-September. This was sent to our financial advocates to review. Our financial advocates shared w/ me that based on statement he provided he's well over the income limit for the SEP. I sent a message to Kimani in [employer] with this update. I explained that unfortunately he will need to wait until open enrollment to get insurance. I explained that I did contact the [employer] about the Darzalex Faspro and they're processing his application. They told me that I should receive a decision from them by fax in 1-2 days. Pt Centered Identified Goal: Financial assistance for tx. Plan: F/u with the [employer] next week if they do not fax me a decision. Jerod SUE documented in this encounter Plan of Treatment Upcoming Encounters Date Type Specialty Care Team Description 01/28/2022 Phlebotomy Only Hematology and Oncology Blood Doctor, [facility] Hem Onc 01/28/2022 Appointment Infusion Therapy 02/04/2022 Phlebotomy Only Hematology and Oncology Blood Doctor, [facility] Hem Onc 02/04/2022 Office Visit Hematology and Oncology Henrik Marquez MD 111 [facility] 2 [place] [phone] (Isabel whyte) 02/04/2022 Appointment Infusion Therapy 02/11/2022 Phlebotomy Only Hematology and Oncology Blood Doctor, [facility] Hem Onc 02/11/2022 Appointment Infusion Therapy 02/18/2022 Phlebotomy Only Hematology and Oncology Blood Doctor, [facility] Hem Onc 02/18/2022 Appointment Infusion Therapy 03/09/2022 Office Visit Hematology and Oncology Dayanna Roman NP 111 [facility] [address] [place] [phone] (Isabel whyte) documented as of this encounter Visit Diagnoses Not on filedocumented in this encounter Care Teams Clinical Medical Transcriptionist Relationship Specialty Start Date End Date Esau Serrano PA-C PCP - General 09/03/21 [address] [place] [address] Saray Nicholson ND Naturopathic Medicine 09/03/[address] [place] [phone] documented as of this encounter
--- OUTSIDE RECORDS SUMMARY | 2022-01-24 10:49 | XMS_ITS | Encounter Summary ---
:1960 Author Organization [facility] Address [address] [place] [address] Care Team Providers Name Role Phone Esau Serrano PA-C Primary Care Provider [phone] Saray Nicholson ND Unavailable [phone] Reason for Visit Reason Onset Date Comments Follow-up 10/28/2021 Encounter Details Date Type Department Care Team Description 10/28/2021 Telephone [facility] Hematology Wesley Orozco, [facility] Follow-up & Oncology - Main [facility] mpus [address] [place], [place] [phone] Social History Tobacco Use Types Packs/Day Years [...] encounter Miscellaneous Notes Telephone Encounter - Jerod Orozco, LINETTE - 10/28/2021 0903 EDT LYNETTE HAND Note: Reason for Call: Kimani and his spouse sent me their portion of the [employer] statistical financial analyst chance for Darzalex Faspro. They also included one page of their tax return showing gross income and a profit and loss statement for this year. Application was then faxed to the [facility]. I told the pt I would update them in a few days when I check on the status of the application. I still haven't heard back from the financial advocates about the SEP through [employer]. I checked in w/ them again today to see if they have any insight about qualifying. Pt Centered Identified Goal: [employer] statistical financial analyst chance for Darzalex Faspro Plan: I plan to check in w/ the [employer] on Mon. Jerod Orozco [facility] ADDENDUM 11:50 I spoke w/ the Financial Advocates, we discussed the need to see if the provider would be willing tosign off on the Medical Incapacity Verification form. The form lists a few examples of someone qualifying such as being inpatient during open enrollment, experience a natural disaster or having dementia. I called [employer] and spoke w/ Sharri and then Scott from their eligibility department about this exception. I shared that this pt hasn't had one of the three examples listed on their site. I explained that the pt just missed signing up for a plan but he's been ill and now needs treatment. Scott explained that there's a higher up review team that takes these requests into consideration. Scott felt it was appropriate to pursue this and allow the team to make a decision. Scott also explained that another (typical) SEP that may qualify Kimani outside of the Medical Incapacity exception would be if they have had a change in family composition. I called Kimani and Haleigh and left a VM regarding my discussion w/ [employer]. I'm waiting to hear back from them to see if they would like to try this Medical exception. ADDENDUM I spoke w/ the financial advocates further and they did not feel like Kimani would qualify for the Medical Incapacity SEP. But I asked why the pt does not qualify for the SEP that's based on income (household of 2 would need to be less than $34,840). The profit and loss statement he provided me from Apr-June shows hardly any income. The financial advocates reported that they would need a profit and loss statement that extends from Apr-September. I reported this back to Kimani and he's working on sending me anupdated profit and loss statement. documented in this encounter Plan of Treatment Upcoming Encounters Date Type Specialty Care Team Description 01/28/2022 Phlebotomy Only Hematology and Oncology Blood Doctor, [facility] Hem Onc 01/28/2022 Appointment Infusion Therapy 02/04/2022 Phlebotomy Only Hematology and Oncology Blood Doctor, [facility] Hem Onc 02/04/2022 Office Visit Hematology and Oncology Henrik Marquez MD 111 [facility] 2 [place] [phone] (Wo rk) 02/04/2022 Appointment Infusion Therapy 02/11/2022 Phlebotomy Only Hematology and Oncology Blood Doctor, [facility] Hem Onc 02/11/2022 Appointment Infusion Therapy 02/18/2022 Phlebotomy Only Hematology and Oncology Blood Doctor, [facility] Hem Onc 02/18/2022 Appointment Infusion Therapy 03/09/2022 Office Visit Hematology and Oncology Dayanna Roman NP 111 [facility] 2 [place] [phone] (Wo rk) documented as of this encounter Visit Diagnoses Not on filedocumented in this encounter Care Teams Workplace Trainer And Assessor Relationship Specialty Start Date End Date Esau Serrano PA-C PCP - General 09/03/21 [address] [place] [phone] Saray Nicholson ND Naturopathic Medicine 09/03/[address] [place] [phone] documented as of this encounter
--- OUTSIDE RECORDS SUMMARY | 2022-01-24 10:49 | XMS_ITS | Encounter Summary ---
:1960 Author Organization [facility] Address [address] [place] [address] Care Team Providers Name Role Phone Esau Serrano PA-C Primary Care Provider [phone] Saray Nicholson ND Unavailable [phone] Reason for Visit Reason Onset Date Comments Follow-up 10/19/2021 Encounter Details Date Type Department Care Team Description 10/19/2021 Telephone [facility] Cancer Center Hematology Wesley Orozco, [facility] Follow-up & Oncology - Main Ca mpus [address] [place], [place] [phone] Social History Tobacco Use Types Packs/Day Years [...] Telephone Encounter - Ernesto LINETTE Newsome - 10/19/2021 0918 EDT LYNETTE HAND Note: Reason for Call: I messaged the financial advocates again to ask if they've had time to reach out to the pt to see ifhe qualifies for Medicaid. Pt needs to start tx katelynn. I received a response from them stating they would reach out today. Pt Centered Identified Goal: Referral to financial advocates Plan: Waiting to hear back if the pt qualifies. Jerod Chambersemma [facility] ADDENDUM 11:08 international recruiter explained they left the pt a VM and are waiting to hear back documented in this encounter Plan of Treatment Upcoming Encounters Date Type Specialty Care Team Description 01/28/2022 Phlebotomy Only Hematology and Oncology Blood Doctor, [facility] Hem Onc 01/28/2022 Appointment Infusion Therapy 02/04/2022 Phlebotomy Only Hematology and Oncology Blood Doctor, [facility] Hem Onc 02/04/2022 Office Visit Hematology and Oncology Henrik Marquez MD [address] [phone] (Isabel rk) 02/04/2022 Appointment Infusion Therapy 02/11/2022 Phlebotomy Only Hematology and Oncology Blood Doctor, [facility] Hem Onc 02/11/2022 Appointment Infusion Therapy 02/18/2022 Phlebotomy Only Hematology and Oncology Blood Doctor, [facility] Hem Onc 02/18/2022 Appointment Infusion Therapy 03/09/2022 Office Visit Hematology and Oncology Dayanna Roman, KODI [address] [phone] (Wo rk) documented as of this encounter Visit Diagnoses Not on filedocumented in this encounter Care Teams Textile Screen Maker Relationship Specialty Start Date End Date Esau Serrano PA-C PCP - General 09/03/[address] [place] [phone] Saray Nicholson, JOVAN Naturopathic Medicine 09/03/[address] [place] [address] documented as of this encounter
--- OUTSIDE RECORDS SUMMARY | 2022-01-24 10:50 | XMS_ITS | Encounter Summary ---
:1960 Author Organization [facility] Address [address] [place] [id number] Care Team Providers Name Role Phone Saray Nicholson JOVAN Primary Care Provider [phone] Esau Serrano PA-C Unavailable Reason for Visit Reason Onset Date Comments COVID-19 08/07/2021 Encounter Details Date Type Department Care Team Description 08/07/2021 Telephone [facility] - Topher Ferguson MD COVID-19 [employer] [address] [place] [id number] [address] [place], [place] [phone] (Wo rk) Social History Tobacco Use Types Packs/Day Years Used Date Never Assessed Sex Assigned at Date Recorded Male 10/05/2021 16:55 EDT documented as of this encounter Miscellaneous Notes Telephone Encounter - Sara Trujillo - 08/07/2021 0930 EDT Patient advised they would like covid testing done at somewhere closer to him. Patient is aware of testing date and that testing needed to be a PCR test and results will need to be provided. Quilting Supervisor will remove patient from the work queue. documented in this encounter Plan of Treatment Upcoming Encounters Date Type Specialty Care Team Description 01/28/2022 Phlebotomy Only Hematology and Oncology Blood Doctor, [facility] Hem Onc 01/28/2022 Appointment Infusion Therapy 02/04/2022 Phlebotomy Only Hematology and Oncology Blood Doctor, [facility] Hem Onc 02/04/2022 Office Visit Hematology and Oncology Henrik Marquez MD [address] [phone] (Wo rk) 02/04/2022 Appointment Infusion Therapy 02/11/2022 Phlebotomy Only Hematology and Oncology Blood Doctor, [facility] Hem Onc 02/11/2022 Appointment Infusion Therapy 02/18/2022 Phlebotomy Only Hematology and Oncology Blood Doctor, [facility] Hem Onc 02/18/2022 Appointment Infusion Therapy 03/09/2022 Office Visit Hematology and Oncology Dayanna Roman NP [address] [phone] (Wo rk) documented as of this encounter Visit Diagnoses Not on filedocumented in this encounter Care Teams Rn Social Work Relationship Specialty Start Date End Date Saray Nicholson ND PCP - General Naturopathic Medicine 07/15/21 09/02/[address] [place] [id number] Esau Serrano PA-C 07/15/21 09/02/21 [address] [place] [address] documented as of this encounter
--- OUTSIDE RECORDS SUMMARY | 2022-01-24 10:50 | XMS_ITS | Encounter Summary ---
:1960 Author Organization [facility] Address [address] [place] [address] Care Team Providers Name Role Phone Saray Nicholson JOVAN Primary Care Provider [phone] Esau Serrano PA-C Unavailable Reason for Visit Reason Onset Date Comments Follow-up 08/18/2021 Encounter Details Date Type Department Care Team Description 08/18/2021 Telephone [facility] Chanelle Downing MD Follow-up Nephrology - S Prosp ect [address], [address] [place], [place] [phone] [place] [phone] (Wo rk) Social History Tobacco Use [...] this encounter Miscellaneous Notes Telephone Encounter - Navdeep Downing MD - 08/18/2021 1033 EDT For elevated D dimers, he had Doppler exam of both LE at [facility] on 08/16/2021 - report of noDVT of either leg. documented in this encounter Plan of Treatment Upcoming Encounters Date Type Specialty Care Team Description 01/28/2022 Phlebotomy Only Hematology and Oncology Blood Doctor, [facility] Hem Onc 01/28/2022 Appointment Infusion Therapy 02/04/2022 Phlebotomy Only Hematology and Oncology Blood Doctor, [facility] Hem Onc 02/04/2022 Office Visit Hematology and Oncology Henrik Marquez MD [address] [phone] (Wo rk) 02/04/2022 Appointment Infusion Therapy 02/11/2022 Phlebotomy Only Hematology and Oncology Blood Doctor, [facility] Hem Onc 02/11/2022 Appointment Infusion Therapy 02/18/2022 Phlebotomy Only Hematology and Oncology Blood Doctor, [facility] Hem Onc 02/18/2022 Appointment Infusion Therapy 03/09/2022 Office Visit Hematology and Oncology Dayanna Roman NP [address] [phone] (Wo rk) documented as of this encounter Visit Diagnoses Not on filedocumented in this encounter Care Teams Cake Froster Relationship Specialty Start Date End Date Saray Nicholson ND PCP - General Naturopathic Medicine 07/15/21 09/02/[address] [place] [phone] Esau Serrano PA-C 07/15/21 09/02/21 [address] [place] [address] documented as of this encounter
--- OUTSIDE RECORDS SUMMARY | 2022-01-24 10:50 | XMS_ITS | Encounter Summary ---
:1960 Author Organization [facility] Address [address] [place] [address] Care Team Providers Name Role Phone Saray Nicholson ND Primary Care Provider Esau Serrano PA-C Unavailable Esau Serrano PA-C Primary Care Provider [phone] Saray Nicholson ND Unavailable [phone] Encounter Details Date Type Department Care Team Description 08/23/2021 Lab Requisition [facility] Outr Resulting Lab, Pathology & Laboratory Provider [facility] [address] [place] [address] Social History Tobacco Use Types [...] 16:55 EDT documented as of this encounter Plan of Treatment Upcoming Encounters Date Type Specialty Care Team Description 01/28/2022 Phlebotomy Only Hematology and Oncology Blood Doctor, [facility] Hem Onc 01/28/2022 Appointment Infusion Therapy 02/04/2022 Phlebotomy Only Hematology and Oncology Blood Doctor, [facility] Hem Onc 02/04/2022 Office Visit Hematology and Oncology Henrik Marquez MD [address] [phone] (Wo rk) 02/04/2022 Appointment Infusion Therapy 02/11/2022 Phlebotomy Only Hematology and Oncology Blood Doctor, [facility] Hem Onc 02/11/2022 Appointment Infusion Therapy 02/18/2022 Phlebotomy Only Hematology and Oncology Blood Doctor, [facility] Hem Onc 02/18/2022 Appointment Infusion Therapy 03/09/2022 Office Visit Hematology and Oncology Dayanna Roman NP [address] [phone] (Wo rk) documented as of this encounter Procedures Procedure Name Priority Date/Time Associated Diagnosis Comme nts SERUM FREE LIGHT Routine 08/23/2021 15:10 Results for this CHAINS EDT procedure are i n the results section. documented in this encounter Results (ABNORMAL) SERUM FREE LIGHT CHAINS (08/23/2021 15:10 EDT) Pathologist Sig [place] Free Lt Chain 2.64 (H) 0.33 - 1.94 [facility] mg/dL LABORATORY SERVICES Lambda Free Lt Chain 7.07 (H) 0.57 - 2.63 [facility] mg/dL LABORATORY SERVICES Forks/Lambda Ratio 0.37 0.26 - 1.65 [facility] Specimen Blood - Venous blood (substance) Performing Organization Address City/State/ZIP Code Phon e Number [facility] [address] [place] [address] SERVICES documented in this encounter Visit Diagnoses Not on filedocumented in this encounter Care Teams E Commerce Architect Relationship Specialty Start Date End Date Saray Nicholson ND PCP - General Naturopathic Medicine 07/15/21 09/02/[address] [place] [phone] Esau Serrano PA-C PCP - General 09/03/21 [address] [place] [phone] Esau Serrano PA-C 07/15/21 09/02/21 [address] [place] [address] Saray Nicholson, [place] Naturopathic Medicine 09/03/[address] [place] [id number] documented as of this encounter
--- OUTSIDE RECORDS SUMMARY | 2022-01-24 10:50 | XMS_ITS | Encounter Summary ---
:1960 Author Organization [facility] Address [address] [place] [address] Care Team Providers Name Role Phone Esau Serrano PA-C Primary Care Provider [phone] Saray Nicholson ND Unavailable [phone] Encounter Details Date Type Department Care Team Description 09/10/2021 Phlebotomy Only [facility] 2 Criminal Justice Teacher, Acc [place] radha colón Phlebotomy Phlebotomy nephropathy 111 [facility] ([facility]) ([facility]) [place], [place] [id number] Social History Tobacco Use Types Packs/Day Years [...] Oncology Henrik Marquez MD 111 [facility], [facility] 2 [place] [phone] (Wo rk) 02/04/2022 Appointment Infusion Therapy 02/11/2022 Phlebotomy Only Hematology and Oncology Blood Doctor, [facility] Hem Onc 02/11/2022 Appointment Infusion Therapy 02/18/2022 Phlebotomy Only Hematology and Oncology Blood Doctor, [facility] Hem Onc 02/18/2022 Appointment Infusion Therapy 03/09/2022 Office Visit Hematology and Oncology Dayanan Roman NP 111 [facility], [facility] 2 [place] [address] (Wo rk) documented as of this encounter Procedures Procedure Name Priority Date/Time Associated Comments Diagnosis LEUKEMIA/LYMPHOMA PANEL Routine 09/10/2021 17:18 AL amyloid Results for this BY FLOW CYTOMETRY EDT nephropathy procedure are in ([facility]) ([facility]) the results section. RETICULOCYTE COUNT Routine 09/10/2021 17:18 AL amyloid Resul ts for this EDT nephropathy procedure are i n ([facility]) ([facility]) the results section. COMPLETE BLOOD COUNT STAT 09/10/2021 17:18 AL amyloid Res ults for this AND DIFFERENTIAL EDT nephropathy procedure a re in ([facility]) ([facility]) the results section. SPEP, INCLUDES Routine 09/10/2021 17:17 AL amyloid Results f or this QUANTITATION OF EDT nephropathy procedure ar e in MONOCLONAL SPIKE ([facility]) ([facility]) the resu lts PERFORMABLE section. COMPREHENSIVE METABOLIC STAT 09/10/2021 17:17 AL amyloid Results for this PANEL (ONCOLOGY USE EDT nephropathy procedur e are in ONLY-INC MG) ([facility]) ([facility]) the results section. SERUM FREE LIGHT CHAINS STAT 09/10/2021 17:17 AL amyloid Results for this EDT nephropathy procedure are i n (HCC-CMS) ([facility]) the results section. IMMUNOTYPING, SERUM Today 09/10/2021 17:17 AL amyloid Resu lts for this EDT nephropathy procedure are i n (HCC-CMS) ([facility]) the results section. IBC Routine 09/10/2021 17:17 AL amyloid Results for this EDT nephropathy procedure are i n (HCC-CMS) ([facility]) the results section. TROPONIN I Routine 09/10/2021 17:17 AL amyloid Results for this EDT nephropathy procedure are i n (HCC-CMS) ([facility]) the results section. IMMUNOGLOBULINS Routine 09/10/2021 17:17 AL amyloid Results for this EDT nephropathy procedure are i n (HCC-CMS) ([facility]) the results section. SPEP, INCLUDES Routine 09/10/2021 17:17 AL amyloid Results f or this QUANTITATION OF EDT nephropathy procedure ar e in MONOCLONAL SPIKE ([facility]-CMS) ([facility]) the resu lts section. PROTEIN, TOTAL Routine 09/10/2021 17:17 AL amyloid EDT nephropathy (HCC-CMS) ([facility]) NT PRO BNP Routine 09/10/2021 17:17 AL amyloid Results for this EDT nephropathy procedure are i n (HCC-CMS) ([facility]) the results section. LDH STAT 09/10/2021 17:17 AL amyloid Results for this EDT nephropathy procedure are i n (HCC-CMS) ([facility]) the results section. IRON Routine 09/10/2021 17:17 AL amyloid Results for this EDT nephropathy procedure are i n (HCC-CMS) ([facility]) the results section. FOLATE Routine 09/10/2021 17:17 AL amyloid Results for this EDT nephropathy procedure are i n (HCC-CMS) ([facility]) the results section. FERRITIN Routine 09/10/2021 17:17 AL amyloid Results for this EDT nephropathy procedure are i n (HCC-CMS) ([facility]) the results section. VITAMIN B12 Routine 09/10/2021 17:17 AL amyloid Results for this EDT nephropathy procedure are i n (HCC-CMS) ([facility]) the results section. BETA 2 Routine 09/10/2021 17:17 AL amyloid Results for this MICROGLOBULIN,SERUM EDT nephropathy procedur e are in (HCC-CMS) ([facility]) the results section. documented in this encounter Results LEUKEMIA/LYMPHOMA PANEL BY FLOW CYTOMETRY (09/10/2021 17:18 EDT) Final Peripheral blood, flow cytometric analysis: [facility] Immunophenotypic - No immunophenotypic eviden ce of a clonal cell population. See comment. CENTER Interpretation LABORATORY SERVICES Comment The results of flow [facility] cytometry show no CENTER immunophenotypic LABORATORY evidence of involvement SERVICES by a clonal lymphoproliferative disorder. No circulating plasma cells are detected on smear. Therefore, no intra-cytoplasmic markers to detect clonal plasma cells are performed. Correlation of these findings with morphologic and clinical data is essential. Attestation By the signature below, [facility] Elec tronically the attending physician CENTER sign ed by Nasr, certifies that they LABORATORY Binu sawyer MD have 1) personally SERVICES on 022 at conducted a gross 1433 and/or microscopic examination of the described specimen(s), and/or personally interpreted the results of laboratory testing of the described specimen(s), and 2) personally rendered or confirmed the above diagnosis. 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 Description The specimen consists of per ipheral blood that has been prepared using ammonium chloride lysing agent. Gating is performed using CD45 fluorescence and side scatter. Cellular viability (assessed by 7-AAD [facility] exclusion) is excellent (99 .9%) among cells with CD45 and side scatter properties typical of lymphocytes and excellent (99.4%) among CD45+ events overall. Scatter plots incorporating all of the markers CENT ER have been interpreted and e valuated for the presence or absence of abnormal cell populations. Only pertinent abnormal findings are included. If not otherwise addressed all other markers were normal/negative. LABORATORY SERVICES A majority of the lymphoid c ells are T-lymphocytes (CD3+CD5+) with CD4+ and CD8+ subsets represented. The remaining lymphocytes are B-lymphocytes (CD19+CD20+) and NK-cells (CD3-CD16+CD56+). Among the B- cells, both kappa+ and lambd a+ subsets are represented. The remainder of the CD45+ events is predominantly of myeloid lineage. There is no increase in blasts. No circulating plasma cells are detected on smear. Therefore, no intra- cytoplasmic markers to detect clonal plasma cells are performed. Flow Markers CD10, CD117, CD11c, [facility] CD16, CD19, CD20, CENTER CD200, CD23, CD3, CD33, LABORATORY CD34, CD38, CD4, CD45, SERVICES CD49d, CD5, CD56, CD8, FMC7, HLA-DR, [place], and Lambda FDA Disclaimer This test was developed [facility] and its performance CENTER characteristics LABORATORY determined by the SERVICES Department of Pathology and Laboratory Medicine, [facility], [place], [place] It has not been cleared or approved by the U.S. Food and Drug Administration. FDA does not require this test to go through premarket FDA review. This test is used for clinical purposes. It should not be regarded as investigational or for research. This laboratory is certified under the Clinical Laboratory Improvement Amendments (CLIA) as qualified to perform high complexity clinical laboratory testing. Sample Analyzed Date 09/11/21 1140 [facility] LABORATORY SERVICES Scanned Images [facility] LABORATORY SERVICES Specimen Blood - Venous blood (substance) Performing Organization Address City/[facility]/ZIP Code Phon e Number [facility] LABORATORY [address] [place] [address] SERVICES RETICULOCYTE COUNT (09/10/2021 17:18 EDT) Pathologist Sig nature Retic Ct (Uncorrected) 1.5 0.5 - 2.5 % [facility] LABORATORY SERVICES Specimen Blood - Venous blood (substance) Performing Organization Address City/[facility]/ZIP Code Phon e Number [facility] LABORATORY [address] [place] [address] SERVICES (ABNORMAL) COMPLETE BLOOD COUNT AND DIFFERENTIAL (09/10/2021 17:18 EDT) WBC 14.56 (H) 4.00 - 10.40 [facility] K/[facility] LABORATORY SERVICES RBC 5.49 4.36 - 5.78 [facility] M/[facility] LABORATORY SERVICES Hemoglobin 16.8 13.8 - 17.3 [facility] gm/dL LABORATORY SERVICES HCT 48.7 39.5 - 50.2 % [facility] LABORATORY SERVICES MCV 89 81 - 95 fl [facility] LABORATORY SERVICES MCH 30.6 27.6 - 33.0 pg [facility] LABORATORY SERVICES MCHC 34.5 32.8 - 36.4 [facility] gm/dL LABORATORY SERVICES RDW-CV 14.2 (H) <14.2 % [facility] LABORATORY SERVICES RDW-SD 45.3 <46.0 fl [facility] LABORATORY SERVICES PLT 374 141 - 377 K/m [facility] LABORATORY SERVICES MPV 9.7 9.5 - 12.7 fl [facility] LABORATORY SERVICES Neutrophils 61.3 % [facility] LABORATORY SERVICES Lymphocytes 23.0 % [facility] LABORATORY SERVICES Monocytes 10.2 % [facility] LABORATORY SERVICES Eosinophils 3.7 % [facility] LABORATORY SERVICES Basophils 1.2 % [facility] LABORATORY SERVICES Immature Grans 0.6 % [facility] LABORATORY SERVICES Absolute Neutrophils 8.93 (H) 2.20 - 8.85 [facility] LABORATORY SERVICES Absolute Lymphocytes 3.35 (H) 1.09 - 3.30 [facility] LABORATORY SERVICES Absolute Monocytes 1.48 (H) 0.10 - 0.80 [facility] LABORATORY SERVICES Absolute Eosinophils 0.54 0.03 - 0.61 [facility] LABORATORY SERVICES Absolute Basophils 0.17 (H) 0.01 - 0.11 [facility] LABORATORY SERVICES Absolute Immature 0.09 (H) 0.00 - 0.06 [facility] Grans /[facility] LABORATORY SERVICES Type of Differential: Auto [facility] LABORATORY SERVICES Specimen Blood - Venous blood (substance) Performing Organization Address City/[facility] Code Phon e Number [facility] LABORATORY [address] [place] [address] SERVICES IMMUNOTYPING, SERUM (09/10/2021 17:17 EDT) Immunotyping, Current [facility] Serum Interpretation: LABORATORY SERVICES Negative for monoclonal immunoglobulins. Reviewed by: Ruben Wang MD 09/13/2021 1341 Specimen Blood - Venous blood (substance) Performing Organization Address City/[facility]/ZIP [facility] Phon e Number [facility] LABORATORY [address] [place] [address] SERVICES (ABNORMAL) SPEP, INCLUDES QUANTITATION OF MONOCLONAL SPIKE PERFORMABLE (09/10/2021 17:17 EDT) Albumin % 46.5 (L) 55.8 - 66.1 % [facility] LABORATORY SERVICES Albumin g/dL 2.3 (L) 3.6 - 5.2 [facility] g/dL LABORATORY SERVICES Alpha-1 % 4.6 2.9 - 4.9 % [facility] LABORATORY SERVICES Alpha-1 g/dL 0.20 0.15 - 0.40 [facility] g/dL LABORATORY SERVICES Alpha-2 % 27.5 (H) 7.1 - 11.8 % [facility] LABORATORY SERVICES Alpha-2 g/dL 1.40 (H) 0.50 - 1.00 [facility] g/dL LABORATORY SERVICES Beta % 13.2 (H) 8.4 - 13.1 % [facility] LABORATORY SERVICES Beta g/dL 0.70 0.60 - 1.20 [facility] g/dL LABORATORY SERVICES Gamma % 8.2 (L) 11.1 - 18.8 % [facility] LABORATORY SERVICES Gamma g/dL 0.40 (L) 0.60 - 1.60 [facility] g/dL LABORATORY SERVICES SPEP Comment Suspicious pattern [facility] seen on protein LABORATORY electrophoresis, SERVICES immunotyping added by reflex.Comment: See scanned/supplementary report. Total Protein 5.0 (L) 6.3 - 8.2 [facility] g/dL LABORATORY SERVICES Specimen Blood - Venous blood (substance) Narrative This result has an attachment that is no t available. Performing Organization Address City/[facility]/ZIP Code Phon e Number [facility] LABORATORY [address] [place] [address] SERVICES PROTEIN, TOTAL (09/10/2021 17:17 EDT) Specimen Blood - Venous blood (substance) Performing Organization Address City/[facility]/ZIP Code Phon e Number [facility] LABORATORY [address] [place] [address] SERVICES (ABNORMAL) BETA 2 MICROGLOBULIN,SERUM (09/10/2021 17:17 EDT) Cdyk-6-Jteeudysdo 2.87 (H) 1.21 - 2.70 [facility] Aleah draper Comment: mcg/mL LABORATORIES Test Performed by: [facility] [address] [place] [address] Medical Appliance Maker: Norris Natarajan M.D. Ph.D.; CLIA# [id number] Specimen Blood - Venous blood (substance) Performing Organization Address City/[facility]/ZIP Code Phon e Number [facility] [address] [place] [address] (ABNORMAL) SERUM FREE LIGHT CHAINS (09/10/2021 17:17 EDT) Pathologist Sig nature [place] Free Lt Chain 2.66 (H) 0.33 - 1.94 [facility] mg/dL LABORATORY SERVICES Lambda Free Lt Chain 7.11 (H) 0.57 - 2.63 [facility] mg/dL LABORATORY SERVICES [place]/Lambda Ratio 0.37 0.26 - 1.65 [facility] LABORATORY SERVICES Specimen Blood - Venous blood (substance) Performing Organization Address [facility] Phon e Number [facility] LABORATORY [address] [place] [address] SERVICES (ABNORMAL) IMMUNOGLOBULINS (09/10/2021 17:17 EDT) Pathologist Sig nature IgG 319 (L) 610-1,616 mg/dL [facility] LABORA TORY SERVICES IgA 332 85 - 499 mg/dL [facility] LABORAT ORY SERVICES IgM 92 35 - 242 mg/dL [facility] LABORAT ORY SERVICES Specimen Blood - Venous blood (substance) Performing Organization Address [facility] Phon e Number [facility] LABORATORY [address] [place] [address] SERVICES (ABNORMAL) NT PRO BNP (09/10/2021 17:17 EDT) Pathologist Sig [facility] NT-pro BNP 1,320 (H)Comment: The <125 pg/mL [facility] results of this assay LABORATORY SERVICES can be falsely lowered due to consumption of Biotin. Specimen Blood - Venous blood (substance) Performing Organization Address [facility] Phon e Number [facility] LABORATORY [address] [place] [address] SERVICES (ABNORMAL) TROPONIN I (09/10/2021 17:17 EDT) Pathologist Sig nature Troponin I (ng/mL) 0.105 (H) <0.034 ng/mL [facility] LABORATORY SERVICES Specimen Blood - Venous blood (substance) Narrative [facility] LABORATORY SERVICES - 09/10/2021 18:07 EDT The results of this assay can be falsely lowered due to the consumption of Biotin. Performing Organization Address [facility]/ZIP Code Phon e Number [facility] LABORATORY [address] [place] [address] SERVICES (ABNORMAL) IBC (09/10/2021 17:17 EDT) Pathologist Sig nature Iron Binding 195 (L) 240 - 450 ??g/dL [facility] Capacity LABORATORY SERVICES Specimen Blood - Venous blood (substance) Performing Organization Address [facility]/ZIP Code Phon e Number [facility] LABORATORY [address] [place] [address] SERVICES (ABNORMAL) IRON (09/10/2021 17:17 EDT) Pathologist Sig nature Iron 37 (L) 49 - 181 ??g/dL [facility] LABORA TORY SERVICES Specimen Blood - Venous blood (substance) Performing Organization Address [facility]/ZIP Code Phon e Number [facility] LABORATORY [address] [place] [address] SERVICES (ABNORMAL) FERRITIN (09/10/2021 17:17 EDT) Pathologist Sig nature Ferritin 387 (H) 22 - 322 ng/mL [facility] LABORAT ORY SERVICES Specimen Blood - Venous blood (substance) Performing Organization Address [facility]/ZIP [facility] Phon e Number [facility] LABORATORY [address] [place] [address] SERVICES (ABNORMAL) VITAMIN B12 (09/10/2021 17:17 EDT) Pathologist Sig nature Vitamin B12 1,145 (H) 211 - 911 pg/mL [facility] LABORATORY SERVICES Specimen Blood - Venous blood (substance) Performing Organization Address [facility]/ZIP Code Phon e Number [facility] LABORATORY [address] [place] [address] SERVICES FOLATE (09/10/2021 17:17 EDT) Folate 7.4 See Note ng/mL [facility] Comment: LABORATORY SERVICES Reference Ranges for Folate: Deficient: ?< 3.4 ng/mL Indeterminate: ??3.4 - 5.4 ng/mL Normal: ? > 5.4 ng/mL The results of this assay ca n be falsely elevated due to the consumption of Biotin. Specimen Blood - Venous blood (substance) Performing Organization Address [facility]/ZIP Code Phon e Number [facility] LABORATORY [address] [place] [address] SERVICES (ABNORMAL) LDH (09/10/2021 17:17 EDT) Pathologist Sig nature LDH 251 (H) 120 - 246 U/L [facility] LABORATO RY SERVICES Specimen Blood - Venous blood (substance) Performing Organization Address City/[facility]/ZIP Code Phon e Number [facility] LABORATORY [address] [place] [address] SERVICES (ABNORMAL) COMPREHENSIVE METABOLIC PANEL (ONCOLOGY USE ONLY-INC MG) (09/10/2021 17:17 EDT) Pathologist Sig nature Sodium 138 136 - 145 [facility] mmol/L LABORATORY SERVICES Potassium 4.1 3.5 - 5.0 [facility] mmol/L LABORATORY SERVICES Chloride 105 96 - 110 mmol/L [facility] LABORATORY SERVICES CO2 Total 25 22 - 32 mmol/L [facility] LABORATORY SERVICES Glucose 84 70 - 100 mg/dL [facility] LABORATORY SERVICES BUN 26 10 - 26 mg/dL [facility] LABORATORY SERVICES Creatinine 1.08 0.66 - 1.25 [facility] mg/dL LABORATORY SERVICES eGFR 79 >60 [facility] mL/min/1.73m2 LABORATORY SERVICES Total Protein 5.0 (L) 6.3 - 8.2 g/dL [facility] LABORATORY SERVICES Albumin 2.3 (L) 3.4 - 4.9 g/dL [facility] LABORATORY SERVICES Alkaline Phosphatase 107 38 - 126 U/L [facility] LABORATORY SERVICES AST 42 15 - 46 U/L [facility] LABORATORY SERVICES ALT 29 <50 U/L [facility] LABORATORY SERVICES Bilirubin, Total <0.5 <1.4 mg/dL [facility] LABORATORY SERVICES Calcium 7.9 (L) 8.5 - 10.5 [facility] mg/dL LABORATORY SERVICES Magnesium 2.0 1.7 - 2.8 mg/dL [facility] LABORATORY SERVICES Albumin/Globulin 0.9 (L) 1.0 - 2.5 [facility] Ratio LABORATORY SERVICES Anion Gap 8 5 - 14 [facility] LABORATORY SERVICES Specimen Blood - Venous blood (substance) Performing Organization Address City/[facility]/ZIP Code Phon e Number [facility] LABORATORY [address] [place] [address] SERVICES documented in this encounter Visit Diagnoses 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
--- OUTSIDE RECORDS SUMMARY | 2022-01-24 10:50 | XMS_ITS | Encounter Summary ---
:1960 Author Organization [facility] Address [address] [place] [address] Care Team Providers Name Role Phone Saray Nicholson ND Primary Care Provider [phone] Esau Serrano PA-C Unavailable Esau Serrano PA-C Primary Care Provider [phone] Saray Nicholson ND Unavailable [phone] Reason for Visit Reason Onset Date Comments Other 08/26/2021 Encounter Details Date Type Department Care Team Description 08/26/2021 Telephone [facility] Chanelle Downing MD Other Nephrology - S Prosp ect [address] [place], [place] [id number] [place] [phone] (Wo rk) Social History Tobacco Use Types [...] Telephone Encounter - Zo Vasquez RN - 08/26/[address] Downing has an other message from today that goes with this one. Re; extra labs done for help with treatment plan post biopsy. Pending review from elephone Encounter - Melody Mays - 08/26/2021 1503 EDT Patient had biopsy and wants to know what his next steps are. Requesting a call back when possible documented in this encounter Plan of Treatment Upcoming Encounters Date Type Specialty Care Team Description 01/28/2022 Phlebotomy Only Hematology and Oncology Blood Doctor, [facility] Hem Onc 01/28/2022 Appointment Infusion Therapy 02/04/2022 Phlebotomy Only Hematology and Oncology Blood Doctor, [facility] Hem Onc 02/04/2022 Office Visit Hematology and Oncology Henrik Marquez MD [address] [address] (Wo rk) 02/04/2022 Appointment Infusion Therapy 02/11/2022 Phlebotomy Only Hematology and Oncology Blood Doctor, [facility] Hem Onc 02/11/2022 Appointment Infusion Therapy 02/18/2022 Phlebotomy Only Hematology and Oncology Blood Doctor, [facility] Hem Onc 02/18/2022 Appointment Infusion Therapy 03/09/2022 Office Visit Hematology and Oncology Dayanna Roman NP 111 [facility] 2 [place] [address] (Wo rk) documented as of this encounter Visit Diagnoses Not on filedocumented in this encounter Care Teams Jewelry Salesperson Relationship Specialty Start Date End Date Saray Nicholson ND PCP - General Naturopathic Medicine 07/15/21 09/02/[address] [place] [phone] Esau Serrano PA-C PCP - General 09/03/21 [address] [place] [address] Esau Serrano PA-C 07/15/21 09/02/21 [address] [place] [address] Saray Nicholson, [place] Naturopathic Medicine 09/03/[address] [place] [phone] documented as of this encounter
--- OUTSIDE RECORDS SUMMARY | 2022-01-24 10:50 | XMS_ITS | Encounter Summary ---
:1960 Author Organization [facility] Address [address] [place] [address] Care Team Providers Name Role Phone Esau Serrano PA-C Primary Care Provider [phone] Saray Nicholson ND Unavailable [phone] Reason for Visit Reason Onset Date Comments Labs Only 09/22/2021 question about fasti ng Encounter Details Date Type Department Care Team Description 09/22/2021 Telephone [facility] Elaina Knutson, Labs Only (question Hematology & Oncology Franco Pace about fasting) - [address] [address] [place], [place] [address] (Wo rk) Social History Tobacco [...] Telephone Encounter - Consuelo Atkins RN - 09/22/2021 0839 EDT Returned call to Jong. Advised that he does not have to fast for his labs today. Telephone Encounter - Cosmo Weiner - 09/22/2021 0808 EDT Patient calling to confirm that he does not have to fast for today's labs. Please call back to advise. documented in this encounter Plan of Treatment Upcoming Encounters Date Type Specialty Care Team Description 01/28/2022 Phlebotomy Only Hematology and Oncology Blood Doctor, [facility] Hem Onc 01/28/2022 Appointment Infusion Therapy 02/04/2022 Phlebotomy Only Hematology and Oncology Blood Doctor, [facility] Hem Onc 02/04/2022 Office Visit Hematology and Oncology Henrik Marquez MD [address] [phone] (Wo rk) 02/04/2022 Appointment Infusion Therapy 02/11/2022 Phlebotomy Only Hematology and Oncology Blood Doctor, [facility] Hem Onc 02/11/2022 Appointment Infusion Therapy 02/18/2022 Phlebotomy Only Hematology and Oncology Blood Doctor, [facility] Hem Onc 02/18/2022 Appointment Infusion Therapy 03/09/2022 Office Visit Hematology and Oncology Dayanna Roman, COMMUNITY BOARD MEMBER [address] [phone] (Wo rk) documented as of this encounter Visit Diagnoses Not on filedocumented in this encounter Care Teams Slurry Worker Relationship Specialty Start Date End Date Esau Serrano PA-C PCP - General 09/03/21 [address] [place] [address] Saray Nicholson ND Naturopathic Medicine 09/03/[address] [place] [address] documented as of this encounter
--- OUTSIDE RECORDS SUMMARY | 2022-01-24 10:50 | XMS_ITS | Encounter Summary ---
:1960 Author Organization [facility] Address [address] [place] [address] Care Team Providers Name Role Phone Saray Nicholson JOVAN Primary Care Provider [phone] Esau Serrano PA-C Unavailable Reason for Visit Reason Onset Date Comments Labs Only 08/23/2021 Encounter Details Date Type Department Care Team Description 08/23/2021 Telephone [facility] Carito Colon RN Labs Only Nephrology - S Prosp ect [phone] [place] [address] Social History Tobacco Use Types Packs/Day Years [...] Telephone Encounter - Zo Vasquez RN - 08/23/2021 4629 EDT Reviewed with pt his testing and ordered the light chains to be done today at [facility]. Order routed, telephone call to scheduling to add on for urgent. Pt is on his way. elephone Encounter - Carito Colon RN - 08/23/2021 1005 EDT See other telephone encounter dated 08/20/21 by Zo Vasquez RN and Dr Downing elephone Encounter - Carito Colon RN - 08/23/2021 1004 EDT ----- Message from Navdeep Downing MD sent at 08/23/2021 8:22 EDT ----- Recent kidney biopsy from 08/18/2021 - the report is still awaited including a send out to [facility]. He is to complete another blood test - serum free light chains. This test has been ordered. Please call him to complete this tests as soon as possible. Thank you. Mac documented in this encounter Plan of Treatment Upcoming Encounters Date Type Specialty Care Team Description 01/28/2022 Phlebotomy Only Hematology and Oncology Blood Doctor, [facility] Hem Onc 01/28/2022 Appointment Infusion Therapy 02/04/2022 Phlebotomy Only Hematology and Oncology Blood Doctor, [facility] Hem Onc 02/04/2022 Office Visit Hematology and Oncology Henrik Marquez MD [address] [phone] (Wo rk) 02/04/2022 Appointment Infusion Therapy 02/11/2022 Phlebotomy Only Hematology and Oncology Blood Doctor, [facility] Hem Onc 02/11/2022 Appointment Infusion Therapy 02/18/2022 Phlebotomy Only Hematology and Oncology Blood Doctor, [facility] Hem Onc 02/18/2022 Appointment Infusion Therapy 03/09/2022 Office Visit Hematology and Oncology Dayanna Roman NP [address] [phone] (Wo rk) documented as of this encounter Visit Diagnoses Not on filedocumented in this encounter Care Teams Supervisor Alteration Workroom Relationship Specialty Start Date End Date Saray Nicholson ND PCP - General Naturopathic Medicine 07/15/21 09/02/[address] [place] [address] Esau Serrano PA-C 07/15/21 09/02/21 [address] [place] [address] documented as of this encounter
--- OUTSIDE RECORDS SUMMARY | 2022-01-24 10:50 | XMS_ITS | Encounter Summary ---
:1960 Author Organization [facility] Address [address] [place] [address] Care Team Providers Name Role Phone Esau Serrano PA-C Primary Care Provider [phone] Saray Nicholson ND Unavailable [phone] Encounter Details Date Type Department Care Team Description 09/13/2021 Orders Only [facility] Moncho Pederson MD Radiology - Main [place] [address] [address] [place] [address] [phone] Social History Tobacco Use Types Packs/Day Years [...] Phlebotomy Only Hematology and Oncology Blood Doctor, [facility] Hem Onc 01/28/2022 Appointment Infusion Therapy 02/04/2022 Phlebotomy Only Hematology and Oncology Blood Doctor, [facility] Hem Onc 02/04/2022 Office Visit Hematology and Oncology Henrik Marquez MD 111 [facility] 2 [place] [phone] (Wo rk) 02/04/2022 Appointment Infusion Therapy 02/11/2022 Phlebotomy Only Hematology and Oncology Blood Doctor, [facility] Hem Onc 02/11/2022 Appointment Infusion Therapy 02/18/2022 Phlebotomy Only Hematology and Oncology Blood Doctor, [facility] Hem Onc 02/18/2022 Appointment Infusion Therapy 03/09/2022 Office Visit Hematology and Oncology Dayanna Roman NP 111 [facility] 2 [place] [phone] (Wo rk) documented as of this encounter Visit Diagnoses Not on filedocumented in this encounter Care Teams Program Admin Relationship Specialty Start Date End Date Esau Serrano PA-C PCP - General 09/03/[address] [place] [phone] Saray Nicholson ND Naturopathic Medicine 09/03/[address] [place] [address] documented as of this encounter
--- OUTSIDE RECORDS SUMMARY | 2022-01-24 10:50 | XMS_ITS | Encounter Summary ---
:1960 Author Organization [facility] Address [address] [place] [address] Care Team Providers Name Role Phone Saray Nicholson Antonio JOVAN Primary Care Provider [phone] Esau Serrano PA-C Unavailable Encounter Details Date Type Department Care Team Description 07/28/2021 Abstract [facility] Navdeep Downing, Cherri hrotic syndrome Nephrology - S (Primary Dx) [address] [address] [facility], [place] [address] (Wo rk) Social History Tobacco [...] Hematology and Oncology Henrik Marquez MD 111 [facility] 2 [place] [phone] (Wo rk) 02/04/2022 Appointment Infusion Therapy 02/11/2022 Phlebotomy Only Hematology and Oncology Blood Doctor, [facility] Hem Onc 02/11/2022 Appointment Infusion Therapy 02/18/2022 Phlebotomy Only Hematology and Oncology Blood Doctor, [facility] Hem Onc 02/18/2022 Appointment Infusion Therapy 03/09/2022 Office Visit Hematology and Oncology Dayanna Roman, HOUSE CALLS NURSE PRACTITIONER 111 [facility], [facility], [address] [place] [phone] (Wo rk) documented as of this encounter Procedures Procedure Name Priority Date/Time Associated Diagnosis Comme nts PROTEIN/CREATININE Routine 07/27/2021 8:12 EDT Nephrotic syndr ome Results for this RATIO, URINE procedure are i n the results section. HEPATIC FUNCTION Routine 07/27/2021 8:12 EDT Nephrotic syndrom e Results for this PANEL (ALB,ALK procedure are in PHOS,ALT,AST,DBIL,T the resu lts OT CRISTÓBAL,TOT PROT) section. BASIC METABOLIC Routine 07/27/2021 8:12 EDT Nephrotic syndrome Results for this PANEL (BMP) procedure are i n the results section. documented in this encounter Results PROTEIN/CREATININE RATIO, URINE (07/27/2021 8:12 EDT) Pathologist Sig nature Protein, Total, Ur 529.3 [facility] Creatinine, Ur Random, 95.70 [facility] UPRO mg/mg Cr, Ur 5.53 [facility] Specimen Urine - Urine specimen collection, clean catch (procedure) Performing Organization Address [facility]/ZIP Code Phon e Number [facility] HEPATIC FUNCTION PANEL (ALB,ALK PHOS,ALT,AST,DBIL,TOT CRISTÓBAL,TOT PROT) (07/27/2021 8:12 EDT) Pathologist Sig nature Albumin, External 1.6 [facility] Total Protein, External 5.0 [facility] Alkaline Phosphatase, 78 [facility] ALT, External 33 [facility] AST, External 36 [facility] Unconjugated Bilirubin [facility] Conjugated Bilirubin, [facility] Bilirubin, Total, 0.4 [facility] Specimen Blood - Venous blood (substance) Performing Organization Address City/[facility]/ZIP Code Phon e Number [facility] BASIC METABOLIC PANEL (BMP) (07/27/2021 8:12 EDT) Pathologist Sig nature GFR, Calculated, >=60 [facility] Glucose, Serum, 102 [facility] Calculated Calcium, [facility] BUN, External 27 [facility] Calcium, External 8.4 [facility] Chloride, External 105 [facility] CO2, External 30.6 [facility] Creatinine, External 1.0 [facility] Fasting?, External [facility] Potassium, External 4.6 [facility] Sodium, External 140 [facility] Specimen Blood - Venous blood (substance) Performing Organization Address City/[facility]/ZIP Code Phon e Number [facility] documented in this encounter Visit Diagnoses Diagnosis Nephrotic syndrome - Primary Nephrotic syndrome with unspecified path ological lesion in kidney documented in this encounter Care Teams Drum Tester Relationship Specialty Start Date End Date Saray Nicholson ND PCP - General Naturopathic Medicine 07/15/21 09/02/[address] [place] [address] Esau Serrano PA-C 07/15/21 09/02/21 [address] [place] [address] documented as of this encounter
--- OUTSIDE RECORDS SUMMARY | 2022-01-24 10:50 | XMS_ITS | Encounter Summary ---
:1960 Author Organization [facility] Address [address] [place] [address] Care Team Providers Name Role Phone Saray Nicholson Gonzales JOVAN Primary Care Provider [phone] Esau Serrano PA-C Unavailable Reason for Visit Reason Onset Date Comments Appointment Related 08/02/2021 Encounter Details Date Type Department Care Team Description 08/02/2021 Telephone [facility] Topher Wilburn MD Appointment Related Interventional Radiology [address] [facility] 111 [facility], [address] [place] [address], [address] [place], [place] [address] [place] [address] [phone] (Wo rk) Social History Tobacco Use Types Packs/Day Years Used Date Never Assessed Sex Assigned at Date Recorded Male 10/05/2021 16:55 EDT documented as of this encounter Miscellaneous Notes Telephone Encounter - Zo Vasquez RN - 08/02/2021 1449 EDT Jong's renal biopsy date and time put on calendar for team. elephone Encounter - Anita Gandhi - 08/02/2021 1420 EDT Spoke with Jong in regards to scheduling their outpatient US guided core renal biopsy with interventional radiology at [facility]. Patient will be coming in on WedAugust 18 at 9:00am, checking in at 8:45am The following details were reviewed with patient to ensure procedure completed on scheduled date: -Patient understands that they will need a local tanker truck driver for this procedure. -Patient understands that they should plan to be here for 4-5 hours that day in total for prep, procedure and recovery. Pre procedure instructions: Covid 19 Policy: It is required that you be tested for Covid- 19 prior to your procedure. Your procedure will not be done if you opt not to be tested. (Testing is required for all IV sedation and General anesthesia cases regardless of your vaccine status per [facility] guidelines) Prior to the procedure and the Covid test, you must not have travelled in the past 7-14 days. (Please call our nursing line MARCUS to make sure we can set up your procedure and Covid testing per guidelines if you have upcomming travel planned) The [facility] Testing [facility] will reach out directly to schedule this.The test is required 3 days prior to date of your procedure. Contact information for [phone]. Discussed with patient the following COVID19 restrictions between covid testing and procedure: -no longer need to quarantine -do not need to stay home from work or keep kids home from school -in addition, per [employer], following restrictions remain: *mask at all times in public *do not eat indoors at restaurants or go into bars *avoid large gatherings *maintain distance from unmasked people - *avoid contact with anyone COVID-19 positive / exhibiting respiratory illness symptoms Medication instruction: - RN to contact with detailed pre procedure medication instructions - They will take their morning medications with a small sip of water. - Per Triaged RN letter patient confirmed that they are NOT taking blood thinning medications at this time. -Patient verbalized understanding of OTC pain medication policy DAY OF PROCEDURE PREP: Patient confirmed understanding of the following instructions: -No solid food or liquids containing fats, including milk after midnight before the procedure. -On the day of procedure, only water, apple juice or sports drinks (gatorade or powerade) until 2 hours before the check in time (starting at 7:00) After 7:00 AM, nothing by mouth. Please be sure to take a shower either the evening before or the morning of your procedure. You may take your medications as directed at any time with small sips of water. Do not bring any valuables with you to the hospital. If you use a BiPAP or CPAP machine to help you breathe, please bring it with you on the day of the procedure. Please bring a list of your allergies and current medications. Please notify our office if there is any change in your health such as a cold or a fever. Patient aware IR RN will contact prior to procedure to go over prep in detail and answer any questions. I have sent patient confirmation via mail. I have notified referring office and team of this patients scheduled date and time. Any further questions can be addressed to Interventional Radiology Department [phone] Ext. 1 Patient verbalized understanding and agrees with Plan of Care. No cognitive barriers were identifiedduring this conversation & they have our contact number to call with questions. Anita Gandhi documented in this encounter Plan of Treatment Upcoming Encounters Date Type Specialty Care Team Description 01/28/2022 Phlebotomy Only Hematology and Oncology Blood Doctor, [facility] Hem Onc 01/28/2022 Appointment Infusion Therapy 02/04/2022 Phlebotomy Only Hematology and Oncology Blood Doctor, [facility] Hem Onc 02/04/2022 Office Visit Hematology and Oncology Henrik Marquez MD [address] [phone] (Isabel whyte) 02/04/2022 Appointment Infusion Therapy 02/11/2022 Phlebotomy Only Hematology and Oncology Blood Doctor, [facility] Hem Onc 02/11/2022 Appointment Infusion Therapy 02/18/2022 Phlebotomy Only Hematology and Oncology Blood Doctor, [facility] Hem Onc 02/18/2022 Appointment Infusion Therapy 03/09/2022 Office Visit Hematology and Oncology Dayanna Roman, CREDIT RISK MODELER [address] [phone] (Wo rk) documented as of this encounter Visit Diagnoses Not on filedocumented in this encounter Care Teams Battery Hand Relationship Specialty Start Date End Date Saray Nicholson, JOVAN PCP - General Naturopathic Medicine 07/15/21 09/02/[address] [place] [address] Esau Serrano PA-C 07/15/21 09/02/21 [address] [place] [phone] documented as of this encounter
--- OUTSIDE RECORDS SUMMARY | 2022-01-24 10:50 | XMS_ITS | Encounter Summary ---
:1960 Author Organization [facility] Address [address] [place] [address] Care Team Providers Name Role Phone Esau Serrano PA-C Primary Care Provider [phone] Saray Nicholson ND Unavailable [phone] Encounter Details Date Type Department Care Team Description 09/22/2021 Hospital Encounter [facility] Hematology & Oncology - [facility] [address] [place], [place] [phone] Social History Tobacco Use Types Packs/Day Years [...] Care documented in this encounter Progress Notes Maeve Horne RN - 09/22/2021 1300 EDT Patient presents for bone marrow biopsy with Jade Raman NP. Post bone marrow biopsy education provided to patient and family by provider. Patient supine in bed for at least 30 min after procedure. Dressing clean, dry and intact upon discharge. I was supervised by Dr. Reynolds who was present and immediately available in the office suite. MAEVE HORNE RN 09/22/2021 14:09 documented in this encounter Plan of Treatment Upcoming Encounters Date Type Specialty Care Team Description 01/28/2022 Phlebotomy Only Hematology and Oncology Blood Doctor, [facility] Hem Onc 01/28/2022 Appointment Infusion Therapy 02/04/2022 Phlebotomy Only Hematology and Oncology Blood Doctor, [facility] Hem Onc 02/04/2022 Office Visit Hematology and Oncology Henrik Marquez MD 111 [facility] 2 [place] [address] (Wo rk) 02/04/2022 Appointment Infusion Therapy 02/11/2022 Phlebotomy Only Hematology and Oncology Blood Doctor, [facility] Hem Onc 02/11/2022 Appointment Infusion Therapy 02/18/2022 Phlebotomy Only Hematology and Oncology Blood Doctor, [facility] Hem Onc 02/18/2022 Appointment Infusion Therapy 03/09/2022 Office Visit Hematology and Oncology Dayanna Roman, ORTHOPEDIC MECHANIC 111 [facility], [facility] 2 [place] [address] (Wo rk) documented as of this encounter Visit Diagnoses Not on filedocumented in this encounter Care Teams Armature And Rotor Winder Relationship Specialty Start Date End Date Esau Serrano PA-C PCP - General 09/03/21 [address] [place] [address] Saray Nicholson, [place] Naturopathic Medicine 09/03/[address] [place] [address] documented as of this encounter
--- OUTSIDE RECORDS SUMMARY | 2022-01-24 10:50 | XMS_ITS | Encounter Summary ---
:1960 Author Organization [facility] Address [address] [place] [address] Care Team Providers Name Role Phone Saray Nicholson ND Primary Care Provider [phone] Esau Serrano PA-C Unavailable Esau Serrano PA-C Primary Care Provider [phone] Saray Nicholson ND Unavailable [phone] Reason for Visit Reason Onset Date Comments Other 08/31/2021 Encounter Details Date Type Department Care Team Description 08/31/2021 Telephone [facility] Chanelle Downing MD Other Transplant - S Prosp ect [address], [address] [place], [place] [phone] [place] [phone] (Wo rk) Social History Tobacco Use Types [...] this encounter Miscellaneous Notes Telephone Encounter - Carito Colon RN - 08/31/2021 1123 EDT Office notes faxed to Maria Fernanda Serrano PCP, and horticultural technical officer notified PCP changed to Maria Fernanda Serrano on chart per patient request elephone Encounter - Carito Colon RN - 08/31/2021 1110 EDT I had a long discussion with the PCP regarding need for anticoagulation for TB. 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 Dr Bennetto elephone Encounter - Carito Colon RN - 08/31/2021 1001 EDT Call placed to Maria Fernanda Serrano PCP physician at [facility] . Maria Fernanda PCP states that patient goes to a naturopathic, who has been getting the office medical Notes faxed to her.. Maria Fernanda has not seen him recently. SHe got a call from the head of integrated media, that he will need coudamid prescribed. Patient is going there for appt this afternoon at [facility] with Maria Fernanda. She did read the office notesfrom Dr Downing, and has a question. He is not always compliant, and is uninsured so warfarin concerns her. Could he benefit for other anticoagulants, that do not require blood draws ? In addition, eliquis or xarelto are more cost effective choices. Is warfarin the preferred choice? elephone Encounter - Shakira Cortes - 08/31/2021 0842 EDT Please call pcp about Medication for this pt documented in this encounter Plan of Treatment Upcoming Encounters Date Type Specialty Care Team Description 01/28/2022 Phlebotomy Only Hematology and Oncology Blood Doctor, [facility] Hem Onc 01/28/2022 Appointment Infusion Therapy 02/04/2022 Phlebotomy Only Hematology and Oncology Blood Doctor, [facility] Hem Onc 02/04/2022 Office Visit Hematology and Oncology Henrik Marquez MD [address] [phone] (Wo rk) 02/04/2022 Appointment Infusion Therapy 02/11/2022 Phlebotomy Only Hematology and Oncology Blood Doctor, [facility] Hem Onc 02/11/2022 Appointment Infusion Therapy 02/18/2022 Phlebotomy Only Hematology and Oncology Blood Doctor, [facility] Hem Onc 02/18/2022 Appointment Infusion Therapy 03/09/2022 Office Visit Hematology and Oncology Dayanna Roman NP 111 [facility] 2 [place] [phone] (Wo rk) documented as of this encounter Visit Diagnoses Not on filedocumented in this encounter Care Teams Ship Purser Relationship Specialty Start Date End Date Saray Nicholson ND PCP - General Naturopathic Medicine 07/15/21 09/02/[address] [place] [phone] Esau Serrano PA-C PCP - General 09/03/21 [address] [place] [address] Esau Serrano PA-C 07/15/21 09/02/21 [address] [place] [address] Saray Nicholson ND Naturopathic Medicine 09/03/[address] [place] [address] documented as of this encounter
--- OUTSIDE RECORDS SUMMARY | 2022-01-24 10:50 | XMS_ITS | Encounter Summary ---
:1960 Author Organization [facility] Address [address] [place] [address] Care Team Providers Name Role Phone Saray Nicholson JOVAN Primary Care Provider [phone] Esau Serrano PA-C Unavailable Reason for Referral Laboratory Services (Routine/Next Available) - New Request Specialty Diagnoses / Procedures Referred By Contact Refer red To Contact Diagnoses Nephrotic syndrome Navdeep Downing MD Procedures SERUM FREE LIGHT CHAINS 1 [facility], [facility] 2 [place] [address] Referral ID Status Reason Start Date Expiration Date Visits V isits Requested Authorized [id number] New Request 08/23/2021 1 1 Reason for Visit Reason Onset Date Comments Follow-up 08/23/2021 Encounter Details Date Type Department Care Team Description 08/23/2021 Telephone [facility] Chanelle Downing MD Follow-up Nephrology - S Prosp ect [address], [facility] 2 [place] [address] [place] [address] (Wo rk) Social History Tobacco [...] Encounter - Zo Vasquez RN - 08/26/2021 1139 EDT Results for JONG ROBERTSON ( ) as of 08/26/2021 11:38 Ref. Range 08/23/2021 15:10 Lambda Free Light Chains Latest Ref Range: 0.57 - 2.63 mg/dL 7.07 (H) Ackley Free Lt Chain Latest Ref Range: 0.33 - 1.94 mg/dL 2.64 (H) Ackley/Lambda Ratio Latest Ref Range: 0.26 - 1.65 0.37 elephone Encounter - Navdeep Downing MD - 08/23/2021 0818 EDT Preliminary update from Pathology: The kidney biopsy from 08/18/2021hows amyloidosis in the glomeruli and vessels. Rare sclerotic glomeruli and there is a small amount of inflammation and fibrosis (about 10%). 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 These analyses typically take another week to get back. The SPEP was reported as negative for monoclonal immunoglobulins. We will ask for new test for serumfree light chains while we wait the rest of the pathology report. onsite health coach to call the patient. documented in this encounter Plan of Treatment Upcoming Encounters Date Type Specialty Care Team Description 01/28/2022 Phlebotomy Only Hematology and Oncology Blood Doctor, [facility] Hem Onc 01/28/2022 Appointment Infusion Therapy 02/04/2022 Phlebotomy Only Hematology and Oncology Blood Doctor, [facility] Hem Onc 02/04/2022 Office Visit Hematology and Oncology Henrik Marquez MD [address] [phone] (Wo rk) 02/04/2022 Appointment Infusion Therapy 02/11/2022 Phlebotomy Only Hematology and Oncology Blood Doctor, [facility] Hem Onc 02/11/2022 Appointment Infusion Therapy 02/18/2022 Phlebotomy Only Hematology and Oncology Blood Doctor, [facility] Hem Onc 02/18/2022 Appointment Infusion Therapy 03/09/2022 Office Visit Hematology and Oncology Dayanna Roman NP [address] [address] (Wo rk) Scheduled Orders Name Type Priority Associated Diagnoses Order S chedule SERUM FREE LIGHT CHAINS Lab Routine Nephrotic syndrom e Expected: 08/23/2021 (Approximate), Expires: 08/23/2022 documented as of this encounter Visit Diagnoses Diagnosis Nephrotic syndrome - Primary Nephrotic syndrome with unspecified path ological lesion in kidney documented in this encounter Care Teams Machinist General Relationship Specialty Start Date End Date Saray Nicholson ND PCP - General Naturopathic Medicine 07/15/21 09/02/[address] [place] [address] Esau Serrano PA-C 07/15/21 09/02/21 [address] [place] [address] documented as of this encounter
--- OUTSIDE RECORDS SUMMARY | 2022-01-24 10:50 | XMS_ITS | Encounter Summary ---
:1960 Author Organization [facility] Address [address] [place] [address] Care Team Providers Name Role Phone Saray Nicholson ND Primary Care Provider [phone] Esau Serrano PA-C Unavailable Esau Serrano PA-C Primary Care Provider [phone] Saray Nicholson ND Unavailable [phone] Encounter Details Date Type Department Care Team Description 08/19/2021 Lab Requisition [facility] Cosmo Garcia for other Pathology & [place] general examination Laboratory Medicine [address] [facility] [address] [facility], Level [id number] [place] [phone] (Wo rk) Social History Tobacco Use Types [...] Hematology and Oncology Henrik Marquez MD 111 [facility] 2 [place] [phone] (Wo rk) 02/04/2022 Appointment Infusion Therapy 02/11/2022 Phlebotomy Only Hematology and Oncology Blood Doctor, [facility] Hem Onc 02/11/2022 Appointment Infusion Therapy 02/18/2022 Phlebotomy Only Hematology and Oncology Blood Doctor, [facility] Hem Onc 02/18/2022 Appointment Infusion Therapy 03/09/2022 Office Visit Hematology and Oncology Dayanna Roman NP 111 [facility] 2 [place] [address] (Isabel rk) documented as of this encounter Procedures Procedure Name Priority Date/Time Associated Comments Diagnosis MISCELLANEOUS TEST, Today 08/18/2021 10:10 Encounter for ot er Results for this BUFFALO EDT general examination procedur e are in the results section. documented in this encounter Results MISCELLANEOUS TEST, [place]O (08/18/2021 10:10 EDT) Pathologist [facility] Miscellaneous Test, SEE NOTE [facility] Comment: LABORATORIES Test ? Result ?? Flag ??Unit ??RefValue Amyloid Protein ID, Par, LC MS/MS ??Interpretation ? 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 ?A [place] red stain was performed on paraffin sect ions of the ?specimen. [place] red-positive amyloid deposits ar e present. ?Liquid chromatography tandem mass spectrometry ( LC MS/MS) ?was performed on peptides extracted from [place] ?red-positive, microdissected areas of the paraff in-embedded ?specimen. 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 ?Comment: In this anatomic site and with the obse rved ?histologic pattern of amyloid deposition, AL radha loidosis is ?usually associated with systemic disease due to an ?underlying clonal plasma cell proliferation/B-ce ll ?lymphoma. ??Correlation of the mass spectrometry findings ?with the clinical and laboratory features is rec ommended. ?If there are any questions about the analysis or the ?diagnosis in this case, please call the Departme nt of ?Laboratory Medicine and Pathology, [facility] [place] ?at . ??Participated in the Interpretation ? Not Report ed ??Report electronically signed by ?Brandee Langston M.D. ??Material Received ?SEE NOTE ?A. [id number]: [place] kidney ?1 block ??Disclaimer ? SEE NOTE ?This test was developed and its performance bernie acteristics ?determined by [facility] in a manner consistent with CLIA ?requirements. This test has not been cleared or approved by ?the U.S. Food and Drug Administration. ??Case Number ?[id number] ?Test Performed by: ?[facility] ?[address] [place] [address] ?Code Official: Norris Natarajan M.D. Ph.D.; CLIA # [id number] Specimen Blood - Venous blood (substance) Performing Organization Address City/[facility] Phon e Number [facility] [address] [place] [address] documented in this encounter Visit Diagnoses Diagnosis Encounter for other general examination documented in this encounter Care Teams Control Specialist Relationship Specialty Start Date End Date Saray Nicholson ND PCP - General Naturopathic Medicine 07/15/21 09/02/[address] [place] [phone] Esau Serrano PA-C PCP - General 09/03/21 [address] [place] [address] Esau Serrano PA-C 07/15/21 09/02/21 [address] [place] [address] Saray Nicholson ND Naturopathic Medicine 09/03/[address] [place] [address] documented as of this encounter
--- OUTSIDE RECORDS SUMMARY | 2022-01-24 10:50 | XMS_ITS | Encounter Summary ---
:1960 Author Organization [facility] Address [address] [place] [address] Care Team Providers Name Role Phone Saray Nicholson JOVAN Primary Care Provider [phone] Esau Serrano PA-C Unavailable Reason for Visit Reason Onset Date Comments Follow-up 08/20/2021 Encounter Details Date Type Department Care Team Description 08/20/2021 Telephone [facility] Chanelle Downing MD Follow-up Nephrology - S Prosp ect [address], Level [address] [place], [place] [address] [place] [phone] (Wo rk) Social History Tobacco Use [...] Telephone Encounter - Navdeep Downing MD - 08/20/2021 4932 EDT Images from the original note were not included. Cosmo Garcia MD [phone] 08/18/2021 Narrative & Impression History: Nephrotic syndrome; request for [place] kidney biopsy. ?? TECHNIQUE AND FINDINGS: ?? After explaining the benefits and the risks of the procedure with the patient, verbal consent for the procedure was obtained and witnessed. The patient was prepped and draped in sterile fashion. 1% lidocaine was used for local analgesia. Conscious sedation was administered with the monitoring of the pa tient's heart rate, blood pressure, respiratory rate, and oxygen saturation. I personally spent 25 minutes in continuous [id number] attendance with the patient during the administration of the moderate sedation and supervised the moderate sedation services that were monitored by an independent trained observer who had no other duties during the procedure. I have personally reviewed the nursing documentation. ?? Sonographic guidance was used to position coaxial needle into the inferior pole of the left [place] kidney. All sonographic images were recorded. Core biopsies were obtained and analyzed by pathology service present for biopsy. Finally, all needles were removed and hemostasis was achieved at the puncture site with sterile pressure bandage. Patient tolerated procedure well without complication. ?? IMPRESSION ?? Hog Pusher [place] renal core biopsy as described documented in this encounter Plan of Treatment Upcoming Encounters Date Type Specialty Care Team Description 01/28/2022 Phlebotomy Only Hematology and Oncology Blood Doctor, [facility] Hem Onc 01/28/2022 Appointment Infusion Therapy 02/04/2022 Phlebotomy Only Hematology and Oncology Blood Doctor, [facility] Hem Onc 02/04/2022 Office Visit Hematology and Oncology Henrik Marquez MD 111 [facility] 2 [place] [address] (Wo rk) 02/04/2022 Appointment Infusion Therapy 02/11/2022 Phlebotomy Only Hematology and Oncology Blood Doctor, [facility] Hem Onc 02/11/2022 Appointment Infusion Therapy 02/18/2022 Phlebotomy Only Hematology and Oncology Blood Doctor, [facility] Hem Onc 02/18/2022 Appointment Infusion Therapy 03/09/2022 Office Visit Hematology and Oncology Dayanna Roman, CAGE MANAGER [address] [place] [address] [place], [facility], Level [address] [place] [phone] (Wo rk) documented as of this encounter Visit Diagnoses Not on filedocumented in this encounter Care Teams Service Unit Operator Oil Well Relationship Specialty Start Date End Date Saray Nicholson ND PCP - General Naturopathic Medicine 07/15/21 09/02/[address] [place] [phone] Esau Serrano PA-C 07/15/21 09/02/[address] [place] [phone] documented as of this encounter
--- OUTSIDE RECORDS SUMMARY | 2022-01-24 10:50 | XMS_ITS | Encounter Summary ---
:1960 Author Organization [facility] Address [address] [place] [address] Care Team Providers Name Role Phone Saray Nicholson [place] JOVAN Primary Care Provider [phone] Esau Serrano PA-C Unavailable Encounter Details Date Type Department Care Team Description 08/03/2021 Abstract [facility] Navdeep Downing, Cherri hrotic syndrome Nephrology - S (Primary Dx) [address] [address] [facility], [place] [address] (Wo rk) Social History Tobacco [...] Oncology Henrik Marquez MD 111 [facility] 2 [place] [phone] (Wo rk) 02/04/2022 Appointment Infusion Therapy 02/11/2022 Phlebotomy Only Hematology and Oncology Blood Doctor, [facility] Hem Onc 02/11/2022 Appointment Infusion Therapy 02/18/2022 Phlebotomy Only Hematology and Oncology Blood Doctor, [facility] Hem Onc 02/18/2022 Appointment Infusion Therapy 03/09/2022 Office Visit Hematology and Oncology Dayanna Roman, BURGLAR ALARM INSTALLER 111 [place] [facility], Level 2 [place] [phone] (Wo rk) documented as of this encounter Procedures Procedure Name Priority Date/Time Associated Diagnosis Comme nts PROTEIN/CREATININE Routine 08/02/2021 11:00 Nephrotic syndrome Results for this RATIO, URINE EDT procedure are i n the results section. HEPATIC FUNCTION Routine 08/02/2021 11:00 Nephrotic syndrome R esults for this PANEL (ALB,ALK EDT procedure are in PHOS,ALT,AST,DBIL,T the resu lts OT CRISTÓBAL,TOT PROT) section. BASIC METABOLIC Routine 08/02/2021 11:00 Nephrotic syndrome Re sults for this PANEL (BMP) EDT procedure are i n the results section. documented in this encounter Results BASIC METABOLIC PANEL (BMP) (08/02/2021 11:00 EDT) Pathologist Sig nature GFR, Calculated, >=60 [facility] Glucose, Serum, 98 [facility] Calculated Calcium, [facility] BUN, External 23 [facility] Calcium, External 8.4 [facility] Chloride, External [address] [facility] CO2, External 29.1 [facility] Creatinine, External 0.9 [facility] Fasting?, External [facility] Potassium, External 4.7 [facility] Sodium, External 139 [facility] Specimen Blood - Venous blood (substance) Performing Organization Address City/State/ZIP Code Phon e Number [facility] HEPATIC FUNCTION PANEL (ALB,ALK PHOS,ALT,AST,DBIL,TOT CRISTÓBAL,TOT PROT) (08/02/2021 11:00 EDT) Pathologist Sig nature Albumin, External 1.6 [facility] Total Protein, External 4.9 [facility] Alkaline Phosphatase, 75 [facility] ALT, External 32 [facility] AST, External 32 [facility] Unconjugated Bilirubin [facility] Conjugated Bilirubin, 0.1 [facility] Bilirubin, Total, 0.5 [facility] Specimen Blood - Venous blood (substance) Performing Organization Address [facility]/ZIP Code Phon e Number [facility] PROTEIN/CREATININE RATIO, URINE (08/02/2021 11:00 EDT) Pathologist Sig nature Protein, Total, Ur 297.4 [facility] Random, [facility] Creatinine, Ur Random, 47.43 [facility] UPRO mg/mg Cr, Ur 6.27 [facility] Specimen Urine - Urine specimen collection, clean catch (procedure) Performing Organization Address [facility] Phon e Number [facility] documented in this encounter Visit Diagnoses Diagnosis Nephrotic syndrome - Primary Nephrotic syndrome with unspecified path ological lesion in kidney documented in this encounter Care Teams Paraplanner Relationship Specialty Start Date End Date Saray Nicholson ND PCP - General Naturopathic Medicine 07/15/21 09/02/[address] [place] [phone] Esau Serrano PA-C 07/15/21 09/02/21 [address] [place] [address] documented as of this encounter
--- OUTSIDE RECORDS SUMMARY | 2022-01-24 10:50 | XMS_ITS | Encounter Summary ---
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 Encounter Details Date Type Department Care Team Description 09/02/2021 Orders Only [facility] Navdeep Downing Nep hrotic syndrome with pathological lesion in kidney (Primary Dx); Nephrology - S Amyloid light chain nephropathy (HCC) [address] [address] Rehab, [place] [phone] (Wo rk) Social History Tobacco Use Types [...] Phlebotomy Only Hematology and Oncology Blood Doctor, [facility] Hem Onc 01/28/2022 Appointment Infusion Therapy 02/04/2022 Phlebotomy Only Hematology and Oncology Blood Doctor, [facility] Hem Onc 02/04/2022 Office Visit Hematology and Oncology Henrik Marquez MD [address] [phone] (Wo rk) 02/04/2022 Appointment Infusion Therapy 02/11/2022 Phlebotomy Only Hematology and Oncology Blood Doctor, [facility] Hem Onc 02/11/2022 Appointment Infusion Therapy 02/18/2022 Phlebotomy Only Hematology and Oncology Blood Doctor, [facility] Hem Onc 02/18/2022 Appointment Infusion Therapy 03/09/2022 Office Visit Hematology and Oncology Dayanna Roman NP 111 [facility] 2 [place] [address] (Wo rk) Scheduled Referrals Name Type Priority Associated Diagnoses Order S chedule AMB CONS/FOLLOW UP Outpatient Referral Urgent Nephrotic syndr ome Expected: HEMATOLOGY with pathological 09/04/2021 lesion in kidney (Approximate), Amyloid light chain Expires: nephropathy (HCC) 09/02/2022 documented as of this encounter Visit Diagnoses Diagnosis Nephrotic syndrome with pathological les ion in kidney - Primary Nephrotic syndrome with unspecified path ological lesion in kidney Amyloid light chain nephropathy (HCC) documented in this encounter Care Teams Protective Signal Superintendent Relationship Specialty Start Date End Date Saray Nicholson ND PCP - General Naturopathic Medicine 07/15/21 09/02/[address] [place] [phone] Esau Serrano PA-C 07/15/21 09/02/21 [address] [place] [address] documented as of this encounter
--- OUTSIDE RECORDS SUMMARY | 2022-01-24 10:50 | XMS_ITS | Encounter Summary ---
:1960 Author Organization [facility] Address [address] [place] [address] Care Team Providers Name Role Phone ElySaray miller Antonio ALDANA Primary Care Provider [phone] Esau Serrano PA-C Unavailable Encounter Details Date Type Department Care Team Description 08/06/2021 Orders Only [facility] Candace Singh, Pre -procedure lab Interventional RN exam (Primary Dx) Radiology - [facility] [address] [address] [place] [address] Social History Tobacco Use Types Packs/Day Years [...] Hematology and Oncology Henrik Marquez MD 111 [facility], Level [address] [place] [phone] (Wo rk) 02/04/2022 Appointment Infusion Therapy 02/11/2022 Phlebotomy Only Hematology and Oncology Blood Doctor, [facility] Hem Onc 02/11/2022 Appointment Infusion Therapy 02/18/2022 Phlebotomy Only Hematology and Oncology Blood Doctor, [facility] Hem Onc 02/18/2022 Appointment Infusion Therapy 03/09/2022 Office Visit Hematology and Oncology Dayanna Roman, PSYCHIATRY RESIDENT 111 [place] [facility], [facility] 2 [place] [address] (Wo rk) documented as of this encounter Visit Diagnoses Diagnosis Pre-procedure lab exam - Primary Pre-procedural laboratory examination documented in this encounter Care Teams Rubber Production Machine Operator Relationship Specialty Start Date End Date Saray Nicholson ND PCP - General Naturopathic Medicine 07/15/21 09/02/[address] [place] [phone] Esau Serrano PA-C 07/15/21 09/02/21 [address] [place] [address] documented as of this encounter
--- OUTSIDE RECORDS SUMMARY | 2022-01-24 10:50 | XMS_ITS | Encounter Summary ---
:1960 Author Organization [facility] Address [address] [place] [id number] Care Team Providers Name Role Phone Saray Nicholson Wheeler JOVAN Primary Care Provider [phone] Esau Serrano PA-C Unavailable Reason for Visit Reason Onset Date Comments Pre-procedure 08/11/2021 [place] Encounter Details Date Type Department Care Team Description 08/11/2021 Telephone [facility] Candace Singh, Pre -procedure (IR head wood grinder Renay ) - [facility] [address] [place], [place] [id number] [place] [address] Social History Tobacco Use Types Packs/Day Years Used Date Never Assessed Sex Assigned at Date Recorded Male 10/05/2021 16:55 EDT documented as of this encounter Miscellaneous Notes Telephone Encounter - Candace Singh RN - 08/11/2021 1544 EDT Interventional Radiology Appt: Kidney Biopsy on 08-18-21 Phone call made to patient to review the following pre-procedure prep & information: I started to review the information through, however Jong reported he was feeling ill/nauseous and hung up the phone I will call him tomorrow. Check into registration (3rd floor) by 845AM (even if you have pre registered) -Most of our procedures utilize some form of sedation. Having a forklift driver to take you home is required.A bus or taxi is not allowed. It is preferable to have your forklift driver accompany you to the appointment.If this is not possible, please bring your drivers contact information with you to the appointment. They need to be accessible by phone, please note the parking garage does not have consistent cell phone coverage. Current Visitor Policy: -Entrances into all [facility] buildings and clinics will be restricted and everyone who enters will be asked the purpose of their visit to the medical center. - Two people are permitted to escort a patient undergoing any procedure requiring sedation or general anesthesia. Covid-19 Policy: Have you or a household member tested positive for Covid-19 in the last 10 days? [x]no []yes -test required 3 days prior to the procedure, regardless of vaccination status. Pt is having this done at [facility], he will bring a copy of the result to the appt with him [facility] for [phone] POST TEST: ??? mask at all times in public ??? do not eat indoors at restaurants or go into bars ??? avoid large gatherings ??? maintain distance from unmasked people ??? avoid contact with anyone COVID-19 positive / exhibiting respiratory illness symptoms ??? (no longer need to stay home from work or keep kids out of school) ??? Call if you become ill, concern you have been exposed or develop s/s of Covid-19 , if a household member has recently tested positive in the past 10 days Pre Sedation Guidelines: -Have no Solid food or liquids containing fats(including milk)after midnight before the procedure -On the day of your procedure you may only have water, apple juice or sports drinks(Gatorade) until 2 hours before check in time -After 7am, nothing by mouth, however you may take medications at any time with small sips of water Medications - take prescribed medications. You should take as needed pain meds as needed. Meds to hold: pt confirms they are not on any blood thinning medication ??? Do not take Ibuprofen ( Motrin, Advil) for 24 hours prior to the procedure or Aleve (Naproxen) for 2 days prior ??? Full strength Aspirin should not be taken for 5 days prior to this procedure. If you are on a baby Aspirin , this is okay to continue. ( taking any of the above medications could cause a delay in your procedure) -Tylenol (acetaminophen) may be taken for pain. - Bring a list of current medications/allergy list -Shower night before or morning of procedure -Leave all valuables/medications at home (other than glasses/hearing aids).If patient uses a CPAP, they should bring it to the appt. pt verbalized understanding, all questions answered. [facility] RN phone number provided, should they have any further questions prior to this appointment. documented in this encounter Plan of Treatment Upcoming Encounters Date Type Specialty Care Team Description 01/28/2022 Phlebotomy Only Hematology and Oncology Blood Doctor, [facility] 01/28/2022 Appointment Infusion Therapy 02/04/2022 Phlebotomy Only Hematology and Oncology Blood Doctor, [facility] 02/04/2022 Office Visit Hematology and Oncology Henrik Marquez MD [address] [phone] (Isabel rk) 02/04/2022 Appointment Infusion Therapy 02/11/2022 Phlebotomy Only Hematology and Oncology Blood Doctor, [facility] 02/11/2022 Appointment Infusion Therapy 02/18/2022 Phlebotomy Only Hematology and Oncology Blood Doctor, [facility] 02/18/2022 Appointment Infusion Therapy 03/09/2022 Office Visit Hematology and Oncology Dayanna Roman NP [address] [facility] [address] [place] [address] (Wo rk) documented as of this encounter Visit Diagnoses Not on filedocumented in this encounter Care Teams Library Services Assistant Relationship Specialty Start Date End Date Saray Nicholson ND PCP - General Naturopathic Medicine 07/15/21 09/02/[address] [place] [id number] Esau Serrano PA-C 07/15/21 09/02/[address] [place] [phone] documented as of this encounter
--- OUTSIDE RECORDS SUMMARY | 2022-01-24 10:50 | XMS_ITS | Encounter Summary ---
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) Elaina Knutson [facility] Procedures PET CT WHOLE BODY Henrik Dotson MD [address] [facility], [facility] 2 [place] [address] Referral ID Status Reason Start Expiration Visits Visits Date Date Requested Authorized [id number] Authorization Not 09/13/2021 1 1 Required Reason for Visit Reason Comments New Patient Visit Consult (See Order Priority) - Specialty Report Received Specialty Diagnoses / Procedures Referred By Contact Refer red To Contact Hematology and Diagnoses Nephrotic syndrome with pathological lesion in kidney Amyloid A nephropathy (HCC) Navdeep Downing, Ep2 Hem/Onc Oncology [id number] [place] [address] Rehab, Level 2 [place] [address] Referral ID Status Reason Start Expiration Visits Visits Date Date Requested Authorized [id number] Specialty Specialty 08/27/2021 1 1 Report Services Received Required Encounter Details Date Type Department Care Team Description 09/10/2021 Office Visit [email or web address] ANALI Marquezloisabella Hematology & Henrik Dotson MD nephropathy ([facility]) Oncology - [address] ([facility]) (Marina vanessa Dx) [address] [place] [address] Pavilion, [place] [address] (Wo rk) Social History Tobacco [...] Sign Reading Time Taken Comments Blood Pressure 122/77 09/10/2021 1542 EDT Pulse 90 09/10/2021 1542 EDT Temperature 36.3 ??C (97.3 ??F) 09/10/2021 1542 EDT Respiratory Rate 16 09/10/2021 1542 EDT Oxygen Saturation 100% 09/10/2021 1542 EDT Inhaled Oxygen Concentration - - Weight 109.9 kg (242 lb 3.2 oz) 09/10/2021 1542 EDT Height 181.6 cm (5' 11.5) 09/10/2021 1542 EDT Body Mass Index 33.31 09/10/2021 1542 EDT documented in this encounter [...] encounter Progress Notes Henrik Marquez MD - 09/10/2021 1600 EDT 09/10/2021 HEMATOLOGY - ONCOLOGY INITIAL CONSULTATION ?? HEMATOLOGY-ONCOLOGY ATTENDING ATTESTATION ?? I saw and evaluated??Mr.??Dinorah??on??09/10/2021. The case was discussed with??Dr.??Ulises. I personallyreviewed the HPI, PH, FH, SH, ROS and medications. I repeated pertinent portions of the examination and reviewed the relevant imaging and laboratory data. I agree with the findings, assessment and plan??as documented below.? Henrik Delaney MD Hematology Oncology ?? PATIENT: Jong Copeland REASON FOR CONSULT: Amyloidosis REFERRING PROVIDER: Navdeep Downing MD CHIEF COMPLAINT 61 year old male suspicious of AL-amyloidosis HISTORY OF PRESENT ILLNESS Jong Copeland is a very pleasant 61 y.o. male who presents suspicious of AL-amyloidosis HPI Patient was in his usual state of health until June 2021 when he was being worked up for uncontrolled hypertension was found to have hypoalbuminemia and nephrotic range proteinuria with normal kidney function. He was evaluated by nephrology Dr.Onuigbo Sethi in July 2021 recommended renal biopsy. S ubsequently patient underwent renal biopsy on August 18, 2021 which showed amyloidosis, AL lambda type. Glomerular and extra-glomerular vascular amyloid deposits are present. On immunofluorescence, the amyloid deposits show monotypic staining with anti-lambda as well as staining with C3 and the greatest immunoglobulin staining with anti-IgM. On labs he was found to have elevated WBCs 15, hemoglobin 17, platelets 374 since June 2021. CMP was unremarkable except hypoalbuminemia since June 2021. Both lambda 7.0, 2.6 were elevated but ratio was normal 0.37. Recent SPEP and UPEP on 09/07 was negative for monoclonal protein. He was referred to hematology for further management of suspected amyloidosis. Patient has been having fatigue in last 6 months. He has no other complaints. His swelling in his legs coinciding with his improvement in his urine protein. However, recently ended up having flu which worsened his proteinuria as per the patient. He denies any fever, night sweats, lymphadenopathy, chest pain, shortness of breath, dizziness, syncopal episodes, abdominal pain, bleeding, bruises, nausea,vomiting, diarrhea, constipation and recurrent infections. Of note patient has been intolerant to many antihypertensive medications such as furosemide, GREGORY inhibitor's, hydrochlorothiazide so his PCP has put him on herbal medication for his blood pressure control. PROBLEM LIST Patient Active Problem List Diagnosis ??? Cardiac murmur, unspecified ??? Essential hypertension ??? Hepatomegaly ??? Hyperlipidemia ??? Hypertensive chronic kidney disease with stage 1 through stage 4 chronic kidney disease, or unspecified chronic kidney disease ??? Nephrotic syndrome with unspecified morphologic changes ??? Microscopic hematuria ??? Tachycardia, unspecified PAST HISTORY Past Medical History: Diagnosis Date ??? Chronic kidney disease ??? Hyperlipidemia ??? Hypertension Past Surgical History: Procedure Laterality Date ??? UMBILICAL HERNIA REPAIR 2007 No family history on file. MEDICATIONS Current Outpatient Medications Medication Sig Dispense Refill ??? cholecalciferol, Vitamin D3, 50 mcg (2,000 unit) tablet Take 2,000 Units by mouth daily. ??? COQ10, UBIQUINOL, ORAL coQ10 (ubiquinol) 200mg capsule /day ??? NONFORMULARY 2 times daily. HTN Fluid ??? riboflavin, vitamin B2, (B-2) 100 mg tablet tablet riboflavin (vitamin B2) 1 cap 400mg/day ??? rosuvastatin (CRESTOR) 40 mg tablet Take 40 mg by mouth daily. ??? soybean, fermented (NATTOKINASE) 50 mg capsule Nattokinase 1 cap (100mg) 1xday-to prevent clots ??? warfarin (COUMADIN) 5 mg tablet Take 5 mg by mouth daily. 5mg, and 2.5mg every other day No current facility-administered medications for this visit. ALLERGIES Allergies Allergen Reactions ??? Chlorthalidone Major cramping ??? Furosemide major cramping ??? Hydrochlorothiazide Major cramping ??? Lisinopril Continuous cough REVIEW OF SYSTEMS As per HPI DIAGNOSTIC DATA Kidney, specimen for amyloid typing ([id number]; ? 08/18/2021): Involved by amyloidosis, AL (lambda)-type. ? A Congo red stain was performed on paraffin sections of the ? specimen. Congo red-positive amyloid deposits are present. ? Liquid chromatography tandem mass spectrometry (LC MS/MS) ? was performed on peptides extracted from [place] ? red-positive, microdissected areas of the paraffin-embedded ? specimen. ? LC MS/MS detected a peptide profile consistent with AL ? (lambda)-type amyloid deposition. ? These findings support the diagnosis of amyloidosis and ? indicate AL (lambda)-type amyloid deposition. ? Comment: In this anatomic site and with the observed ?histologic pattern of amyloid deposition, AL amyloidosis is ? usually associated with systemic disease due to an ? underlying clonal plasma cell proliferation/B-cell ? lymphoma. ??Correlation of the mass spectrometry findings ? with the clinical and laboratory features is recommended A. KIDNEY, [place], NEEDLE CORE BIOPSIES: - Amyloidosis, AL (lambda)- type. Glomerular and extra-glomerular vascular amyloid deposits are present. On immunofluorescence, the amyloid deposits show monotypic staining with anti- lambda as well as staining with C3 and the greatest immunoglobulin staining with anti-IgM. These findings suggest AL amyloidosis. Tissue was sent to [facility] for protein typing of the amyloidosis which confirms that this represents AL (lambda) amyloidosis (see separate [place] report). Electron microscopy shows deposition of small randomly arranged fibrils that are consistent with amyloid. Clinical correlation and follow up are recommendedto determine if there is an underlying clonal plasma cell proliferation/ B-cell lymphoma that is producing the amyloid protein VITALS Vitals: 09/10/21 1542 BP: 122/77 Pulse: 90 Resp: 16 Temp: 36.3 ??C (97.3 ??F) TempSrc: Temporal SpO2: 100% Weight: (!) 109.9 kg (242 lb 3.2 oz) Height: 181.6 cm (71.5) ECOG Performance Status: 0 PHYSICAL EXAM Physical Exam: General appearance: Awake, alert, oriented x3, NAD. Skin: Skin color, tempature, turgor normal. No rashes or lesions Head: Normocephalic, without obvious abnormality, atraumatic Eyes: sclerae anicteric Neck: supple, symmetrical, trachea midline Lungs: CTAB Heart: regular rate and rhythm, S1, S2 normal Abdomen: soft, non-tender; bowel sounds normal; no masses, no organomegaly Extremities: BL pitting edema. Erythematous rash on the BL forearm. 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 He currently does not meet the criteria for systemic amyloidosis as the evidence of monoclonal plasma cell proliferative disorder is lacking. Further work up as mentioned below is pending todifferentiate MGRS vs systemic AL-amyloidosis. In patients who do not have a detectable clone in serum or urine or who have an IgM monoclonal protein (who are more likely to have a B cell or lymphoplasmacytic clone), additional imaging studies PET to search for a B cell clone may be required, since most IgM molecules are produced by B cells or plas ma cell clone (plasmacytoma). In addition, we recommend getting flow cytometry of peripheral blood lymphocytes, which can detect small, low-grade clones, such as those in chronic lymphocytic leukemia, LPL and MBL. 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 For unknown reasons,the majority (70 to 80 percent) of patients with proliferative glomerulonephritis with monoclonal imm unoglobulin deposits (PGNMID) do not have a detectable circulating monoclonal gammopathy by serum and urine monoclonal protein testing and do not have detectable plasma cell or B cell clones on bone marrow aspirate and biopsy. In these patients, the monoclonal protein is only found in the kidney, and the diagnosis of MGRS is usually established when these patients undergo kidney biopsy. The treatment of MGRS is determined primarily by the nature of the clone (either plasma cell, B cell, or lymphoplasmacytic) that is producing the nephrotoxic monoclonal immunoglobulin. However, data inpatient with no detectable clone and no monoclonal protein in serum or urine is limited. In patientswho present with acute or subacute kidney injury and/or significant proteinuria (>1 g/day), we prefer to initiate clone-directed chemotherapy. This patient who has IgM monoclonal protein deposits along with AL-reagan amyloidosis in the kidney we recommend considering treamtent with rituximab 375 mg/m2 weekly for four weeks. PLAN -Ordered PET scan to r/o plasmacytoma -Repeat SPEP, UPEP and 24 hr urine UPEP to determine the presence of clonal protein -Biomarkers - NT pro BNP, trop, ECHO r/o cardiac involvement -flow cytometry to r/o lymphoproliferative disorders. -BM bx to r/o plasma cell dyscrasias. -RTC in 2 weeks CHASTITY COLLINS MD documented in this encounter Plan of Treatment Upcoming Encounters Date Type Specialty Care Team Description 01/28/2022 Phlebotomy Only Hematology and Oncology Blood Doctor, [facility] Hem Onc 01/28/2022 Appointment Infusion Therapy 02/04/2022 Phlebotomy Only Hematology and Oncology Blood Doctor, [facility] Hem Onc 02/04/2022 Office Visit Hematology and Oncology Henrik Marquez MD 111 [facility], Level [address] [place] [id number] (Wo rk) 02/04/2022 Appointment Infusion Therapy 02/11/2022 Phlebotomy Only Hematology and Oncology Blood Doctor, [facility] Hem Onc 02/11/2022 Appointment Infusion Therapy 02/18/2022 Phlebotomy Only Hematology and Oncology Blood Doctor, [facility] Hem Onc 02/18/2022 Appointment Infusion Therapy 03/09/2022 Office Visit Hematology and Oncology Dayanna Roman NP 111 [facility] Pavilion, Level [address] [place] [address] (Wo rk) documented as of this encounter Results PET CT WHOLE BODY (10/01/2021 12:41 EDT) Anatomical Region Laterality Modality Body Positron Emission To mography (PET) Specimen Impressions [facility] RADIOLOGY [facility] - 10/01/2021 15:14 EDT 1. ??No [...] interpretation and agree with the findings. Narrative [facility] RADIOLOGY [facility] - 10/01/2021 15:[address] WHOLE BODY 10/01/2021 10:30 AM Signs and Symptoms: ??Amyloid Comparison: Renal and urinary bladder ul trasound 07/21/2021. Technique: Approximately 90 minutes following the I V injection of 12.81 mCi of F18- fluorodeoxyglucose, 3D TOF PET imaging was obtained from the skull vertex to the toes using a [facility] digital ??PET/CT sys tem. ??The blood glucose [...] skull vertex to the toes using a [employer] digital PET/CT system. The blood glucose level [...] Organization Address City/State/ZIP Code Phon e Number [facility] RADIOLOGY [facility] LEUKEMIA/LYMPHOMA PANEL BY FLOW CYTOMETRY (09/10/2021 17:18 EDT) Final Peripheral blood, flow cytometric analysis: [facility] [[email or web address]] MEDICAL Immunophenotypic - No immunophenotypic eviden ce of a clonal cell population. See comment. CENTER Interpretation LABORATORY SERVICES Comment The results of flow [facility] cytometry show no CENTER immunophenotypic LABORATORY evidence of involvement SERVICES by a clonal lymphoproliferative disorder. No circulating plasma cells are detected on smear. Therefore, no intra-cytoplasmic markers to detect clonal plasma cells are performed. Correlation of these findings with morphologic and clinical data is essential. Attestation By the signature below, [facility] Elec tronically the attending physician CENTER sign ed by Nasr, certifies that they LABORATORY Binu sawyer MD have 1) personally SERVICES on 022 at conducted a gross 1433 and/or microscopic examination of the described specimen(s), and/or personally interpreted the results of laboratory testing of the described specimen(s), and 2) personally rendered or confirmed the above diagnosis. Clinical History [address] [facility] amyloidosis CENTER (immunoglobulin light LABORATORY chain amyloidosis) and SERVICES neuropathy; rule out lymphoproliferative disease. Description The specimen consists of per ipheral blood that has been prepared using ammonium chloride lysing agent. Gating is performed using CD45 fluorescence and side scatter. Cellular viability (assessed by 7-AAD [facility] exclusion) is excellent (99 .9%) among cells [...] are performed. Flow Markers CD10, CD117, CD11c, [facility] CD16, CD19, CD20, CENTER CD200, CD23, CD3, CD33, LABORATORY CD34, CD38, CD4, CD45, SERVICES CD49d, CD5, CD56, CD8, FMC7, HLA-DR, [place], and Lambda FDA Disclaimer This test was developed [facility] and its performance CENTER characteristics LABORATORY determined by the SERVICES Department of Pathology and Laboratory Medicine, [facility], [place], [place] It has not been cleared or [...] laboratory testing. Sample Analyzed Date 09/11/21 1140 [facility] LABORATORY SERVICES Scanned Images [facility] LABORATORY SERVICES Specimen Blood - Venous blood (substance) Performing Organization Address City/State/ZIP Code Phon e Number [facility] LABORATORY [address] [place] [address] SERVICES RETICULOCYTE COUNT (09/10/2021 17:18 EDT) Pathologist Sig nature Retic Ct (Uncorrected) 1.5 0.5 - 2.5 % [facility] LABORATORY SERVICES Specimen Blood - Venous blood (substance) Performing Organization Address City/State/ZIP Code Phon e Number [facility] LABORATORY [address] [place] [address] SERVICES (ABNORMAL) COMPLETE BLOOD COUNT AND DIFFERENTIAL (09/10/2021 17:18 EDT) WBC 14.56 (H) 4.00 - 10.40 [facility] LABORATORY SERVICES RBC 5.49 4.36 - 5.78 [facility] LABORATORY SERVICES Hemoglobin 16.8 13.8 - 17.3 [facility] gm/dL LABORATORY SERVICES HCT 48.7 39.5 - 50.2 % [facility] LABORATORY SERVICES MCV 89 81 - 95 fl [facility] LABORATORY SERVICES MCH 30.6 27.6 - 33.0 pg [facility] LABORATORY SERVICES MCHC 34.5 32.8 - 36.4 [facility] gm/dL LABORATORY SERVICES RDW-CV 14.2 (H) <14.2 % [facility] LABORATORY SERVICES RDW-SD 45.3 <46.0 fl [facility] LABORATORY SERVICES PLT 374 141 - 377 K/[facility] LABORATORY SERVICES MPV 9.7 9.5 - 12.7 fl [facility] LABORATORY SERVICES Neutrophils 61.3 % [facility] LABORATORY SERVICES Lymphocytes 23.0 % [facility] LABORATORY SERVICES Monocytes 10.2 % [facility] LABORATORY SERVICES Eosinophils 3.7 % [facility] LABORATORY SERVICES Basophils 1.2 % [facility] LABORATORY SERVICES Immature Grans 0.6 % [facility] LABORATORY SERVICES Absolute Neutrophils 8.93 (H) 2.20 - 8.85 [facility] LABORATORY SERVICES Absolute Lymphocytes 3.35 (H) 1.09 - 3.30 [facility] LABORATORY SERVICES Absolute Monocytes 1.48 (H) 0.10 - 0.80 [facility] LABORATORY SERVICES Absolute Eosinophils 0.54 0.03 - 0.61 [facility] K/cmm LABORATORY SERVICES Absolute Basophils 0.17 (H) 0.01 - 0.11 [facility] K/[facility] LABORATORY SERVICES Absolute Immature 0.09 (H) 0.00 - 0.06 [facility] Grans K/[facility] LABORATORY SERVICES Type of Differential: Auto [facility] LABORATORY SERVICES Specimen Blood - Venous blood (substance) Performing Organization Address [facility]/ZIP Code Phon e Number [facility] LABORATORY [address] [place] [address] SERVICES (ABNORMAL) BETA 2 MICROGLOBULIN,SERUM (09/10/2021 17:17 EDT) Ymzn-0-Wznydgtvgu 2.87 (H) 1.21 - 2.[address] [facility] Aleah draper Comment: mcg/mL LABORATORIES Test Performed by: [facility] [address] [place] [address] Clinical Writer: Norris Natarajan M.D. Ph.D.; CLIA# [id number] Specimen Blood - Venous blood (substance) Performing Organization Address [facility] Phon e Number [facility] LABORATORIES [address] [place] [address] (ABNORMAL) SERUM FREE LIGHT CHAINS (09/10/2021 17:17 EDT) Pathologist Sig nature Moab Free Lt Chain 2.66 (H) 0.33 - 1.94 [facility] mg/dL LABORATORY SERVICES Lambda Free Lt Chain 7.11 (H) 0.57 - 2.63 [facility] mg/dL LABORATORY SERVICES Moab/Lambda Ratio 0.37 0.26 - 1.65 [facility] LABORATORY SERVICES Specimen Blood - Venous blood (substance) Performing Organization Address [facility]/ZIP [facility] Phon e Number [facility] LABORATORY [address] [place] [address] SERVICES (ABNORMAL) IMMUNOGLOBULINS (09/10/2021 17:17 EDT) Pathologist Sig nature IgG 319 (L) 610-1,616 mg/dL [facility] LABORA TORY SERVICES IgA 332 85 - 499 mg/dL [facility] LABORAT ORY SERVICES IgM 92 35 - 242 mg/dL [facility] LABORAT ORY SERVICES Specimen Blood - Venous blood (substance) Performing Organization Address [facility]/ZIP Code Phon e Number [facility] LABORATORY [address] [place] [address] SERVICES (ABNORMAL) NT PRO BNP (09/10/2021 17:17 EDT) Pathologist Sig nature NT-pro BNP 1,320 (H)Comment: The <125 pg/mL [facility] results of this assay LABORATORY SERVICES can be falsely lowered due to consumption of Biotin. Specimen Blood - Venous blood (substance) Performing Organization Address [facility]/ZIP Code Phon e Number [facility] LABORATORY [address] [place] [address] SERVICES (ABNORMAL) TROPONIN I (09/10/2021 17:17 EDT) Pathologist Sig nature Troponin I (ng/mL) 0.105 (H) <0.034 ng/mL [facility] LABORATORY SERVICES Specimen Blood - Venous blood (substance) Narrative [facility] LABORATORY SERVICES - 09/10/2021 18:07 EDT The results of this assay can be falsely lowered due to the consumption of Biotin. Performing Organization Address [facility]/ZIP Code Phon e Number [facility] LABORATORY [address] [place] [address] SERVICES (ABNORMAL) IBC (09/10/2021 17:17 EDT) Pathologist Sig nature Iron Binding 195 (L) 240 - 450 ??g/dL [facility] Capacity LABORATORY SERVICES Specimen Blood - Venous blood (substance) Performing Organization Address [facility]/ZIP [facility] Phon e Number [facility] LABORATORY [address] [place] [address] SERVICES (ABNORMAL) IRON (09/10/2021 17:17 EDT) Pathologist Sig nature Iron 37 (L) 49 - 181 ??g/dL [facility] LABORA TORY SERVICES Specimen Blood - Venous blood (substance) Performing Organization Address City/[facility]/ZIP Code Phon e Number [facility] LABORATORY [address] [place] [address] SERVICES (ABNORMAL) FERRITIN (09/10/2021 17:17 EDT) Pathologist Sig nature Ferritin 387 (H) 22 - 322 ng/mL [facility] LABORAT ORY SERVICES Specimen Blood - Venous blood (substance) Performing Organization Address [facility]/ZIP Code Phon e Number [facility] LABORATORY [address] [place] [address] SERVICES (ABNORMAL) VITAMIN B12 (09/10/2021 17:17 EDT) Pathologist Sig nature Vitamin B12 1,145 (H) 211 - 911 pg/mL [facility] LABORATORY SERVICES Specimen Blood - Venous blood (substance) Performing Organization Address [facility]/ZIP Code Phon e Number [facility] LABORATORY [address] [place] [address] SERVICES FOLATE (09/10/2021 17:17 EDT) Folate 7.4 See Note ng/mL [facility] Comment: LABORATORY SERVICES Reference Ranges for Folate: Deficient: ?< 3.4 ng/mL Indeterminate: ??3.4 - 5.4 ng/mL Normal: ? > 5.4 ng/mL The results of this assay ca n be falsely elevated due to the consumption of Biotin. Specimen Blood - Venous blood (substance) Performing Organization Address [facility] Hospital/ZIP [facility] Phon e Number [facility] [address] [place] [address] SERVICES (ABNORMAL) LDH (09/10/2021 17:17 EDT) Pathologist Sig nature LDH 251 (H) 120 - 246 U/L [facility] RY SERVICES Specimen Blood - Venous blood (substance) Performing Organization Address [facility]/ZIP [facility] Phon e Number [facility] [address] [place] [address] SERVICES (ABNORMAL) COMPREHENSIVE METABOLIC PANEL (ONCOLOGY USE ONLY-INC MG) (09/10/2021 17:17 EDT) Pathologist Sig nature Sodium 138 136 - 145 [facility] mmol/L LABORATORY SERVICES Potassium 4.1 3.5 - 5.0 [facility] mmol/L LABORATORY SERVICES Chloride 105 96 - 110 mmol/L [facility] SERVICES CO2 Total 25 22 - 32 mmol/L [facility] SERVICES Glucose 84 70 - 100 mg/dL [facility] SERVICES BUN 26 10 - 26 mg/dL [facility] SERVICES Creatinine 1.08 0.66 - 1.25 [facility] mg/dL LABORATORY SERVICES eGFR 79 >60 [facility] mL/min/1.73m2 LABORATORY SERVICES Total Protein 5.0 (L) 6.3 - 8.2 g/dL [facility] SERVICES Albumin 2.3 (L) 3.4 - 4.9 g/dL [facility] SERVICES Alkaline Phosphatase 107 38 - 126 U/L [facility] SERVICES AST 42 15 - 46 U/L [facility] SERVICES ALT 29 <50 U/L [facility] SERVICES Bilirubin, Total <0.5 <1.4 mg/dL [facility] SERVICES Calcium 7.9 (L) 8.5 - 10.5 [facility] mg/dL LABORATORY SERVICES Magnesium 2.0 1.7 - 2.8 mg/dL [facility] SERVICES Albumin/Globulin 0.9 (L) 1.0 - 2.5 [facility] Ratio LABORATORY SERVICES Anion Gap 8 5 - 14 [facility] SERVICES Specimen Blood - Venous blood (substance) Performing Organization Address City/State/ZIP Code Phon e Number [facility] [address] [place] [address] SERVICES documented in this encounter Visit Diagnoses Diagnosis AL amyloid nephropathy (HCC-CMS) (HCC) - Primary Other amyloidosis AL amyloid nephropathy (HCC-CMS) (HCC) Other amyloidosis documented in this encounter Historical Medications This list may reflect changes made after this encounter. Medication Sig Dispensed Refills Start Date End Date warfarin (COUMADIN) 5 mg Take 5 mg by mouth 0 11/04/2021 tablet daily. 5mg, and 2.5mg every other day added in this encounter Care Teams Electrician Supervisor Airplane Relationship Specialty Start Date End Date Esau Serrano PA-C PCP - General 09/03/21 [address] [place] [address] Saray Nicholson ND Naturopathic Medicine 09/03/[address] [place] [phone] documented as of this encounter
--- OUTSIDE RECORDS SUMMARY | 2022-01-24 10:50 | XMS_ITS | Encounter Summary ---
:[address] [facility] Address [address] [place] [address] Care Team Providers Name Role Phone Esau Serrano PA-C Primary Care Provider [phone] Saray Nicholson ND Unavailable [phone] Reason for Visit Reason Onset Date Comments Appointment Related 09/15/2021 Encounter Details Date Type Department Care Team Description 09/15/2021 Telephone [facility] Jacquelin Marquez intment Related Hematology & Oncology Franco Pace [address] [address] [place], [place] [address] (Wo rk) Social History Tobacco [...] Telephone Encounter - Consuelo Atkins RN - 09/16/2021 1031 EDT Reviewed question of warfarin continuation with Jade Raman, pt does not have to hold this for his bmbx, pt informed and expressed appreciation of the information. elephone Encounter - Geeta Martinez - 09/15/2021 1008 EDT Spoke with patient & advised of all appts; patient confirmed all Patient needs to know if he needs to hold Warfarin for BMBX, please call to advise as soon as possible documented in this encounter Plan of Treatment Upcoming Encounters Date Type Specialty Care Team Description 01/28/2022 Phlebotomy Only Hematology and Oncology Blood Doctor, [facility] Hem Onc 01/28/2022 Appointment Infusion Therapy 02/04/2022 Phlebotomy Only Hematology and Oncology Blood Doctor, [facility] Hem Onc 02/04/2022 Office Visit Hematology and Oncology Henrik Marquez MD 111 [facility], [facility] [address] [place] [address] (Wo pato) 02/04/2022 Appointment Infusion Therapy 02/11/2022 Phlebotomy Only Hematology and Oncology Blood Doctor, [facility] Hem Onc 02/11/2022 Appointment Infusion Therapy 02/18/2022 Phlebotomy Only Hematology and Oncology Blood Doctor, [facility] Hem Onc 02/18/2022 Appointment Infusion Therapy 03/09/2022 Office Visit Hematology and Oncology Dayanna Roman NP 111 [facility], [facility] 2 [place] [address] (Wo rk) documented as of this encounter Visit Diagnoses Not on filedocumented in this encounter Care Teams Roving Winder Relationship Specialty Start Date End Date Esau Serrano PA-C PCP - General 09/03/21 [address] [place] [address] Saray Nicholson ND Naturopathic Medicine 09/03/[address] [place] [phone] documented as of this encounter
--- OUTSIDE RECORDS SUMMARY | 2022-01-24 10:50 | XMS_ITS | Encounter Summary ---
:1960 Author Organization [facility] Address [address] [place] [address] Care Team Providers Name Role Phone Saray Nicholson Rice JOVAN Primary Care Provider [phone] Esau Serrano PA-C Unavailable Encounter Details Date Type Department Care Team Description 08/17/2021 Abstract [facility] Navdeep Downing, Cherri hrotic syndrome Nephrology - S (Primary Dx) [address] [address] [facility], [place] [address] (Wo rk) Social History Tobacco [...] Hematology and Oncology Henrik Marquez MD 111 [facility] 2 [place] [phone] (Wo rk) 02/04/2022 Appointment Infusion Therapy 02/11/2022 Phlebotomy Only Hematology and Oncology Blood Doctor, [facility] Hem Onc 02/11/2022 Appointment Infusion Therapy 02/18/2022 Phlebotomy Only Hematology and Oncology Blood Doctor, [facility] Hem Onc 02/18/2022 Appointment Infusion Therapy 03/09/2022 Office Visit Hematology and Oncology Dayanna Roman, WATER ENGINEER [address] [place] [facility], [address] [place] [phone] (Wo rk) documented as of this encounter Procedures Procedure Name Priority Date/Time Associated Diagnosis Comme nts PROTEIN/CREATININE Routine 08/17/2021 11:43 Nephrotic syndrome Results for this RATIO, URINE EDT procedure are i n the results section. HEPATIC FUNCTION Routine 08/17/2021 11:43 Nephrotic syndrome R esults for this PANEL (ALB,ALK EDT procedure are in PHOS,ALT,AST,DBIL,T the resu lts OT CRSITÓBAL,TOT PROT) section. BASIC METABOLIC Routine 08/17/2021 11:43 Nephrotic syndrome Re sults for this PANEL (BMP) EDT procedure are i n the results section. documented in this encounter Results BASIC METABOLIC PANEL (BMP) (08/17/2021 11:43 EDT) Pathologist Sig nature GFR, Calculated, >=60 [facility] LAB Glucose, Serum, 87 [facility] Calculated Calcium, [facility] BUN, External 14 [facility] Calcium, External 8.1 [facility] Chloride, External 104 [facility] CO2, External 30.0 [facility] Creatinine, External 0.9 [facility] Fasting?, External [facility] Potassium, External 4.5 [facility] Sodium, External 138 [facility] Specimen Blood - Venous blood (substance) Performing Organization Address City/State/ZIP Code Phon e Number [facility] LAB HEPATIC FUNCTION PANEL (ALB,ALK PHOS,ALT,AST,DBIL,TOT CRISTÓBAL,TOT PROT) (08/17/2021 11:43 EDT) Pathologist Sig nature Albumin, External 1.5 [facility] Total Protein, External 4.7 [facility] Alkaline Phosphatase, 83 [facility] ALT, External 34 [facility] AST, External 32 [facility] Unconjugated Bilirubin [facility] Conjugated Bilirubin, 0.1 [facility] LAB Bilirubin, Total, 0.6 [facility] LAB Specimen Blood - Venous blood (substance) Performing Organization Address [facility]/ZIP Code Phon e Number [facility] PROTEIN/CREATININE RATIO, URINE (08/17/2021 11:43 EDT) Pathologist Sig nature Protein, Total, Ur 260.8 [facility] Random, [facility] LAB Creatinine, Ur Random, 43.72 [facility] LAB UPRO mg/mg Cr, Ur 5.96 [facility] LAB Specimen Urine - Urine specimen collection, clean catch (procedure) Performing Organization Address [facility] Phon e Number [facility] documented in this encounter Visit Diagnoses Diagnosis Nephrotic syndrome - Primary Nephrotic syndrome with unspecified path ological lesion in kidney documented in this encounter Care Teams Care Management Coordinator Relationship Specialty Start Date End Date Saray Nicholson ND PCP - General Naturopathic Medicine 07/15/21 09/02/[address] [place] [address] Esau Serrano PA-C 07/15/21 09/02/21 [address] [place] [address] documented as of this encounter
--- OUTSIDE RECORDS SUMMARY | 2022-01-24 10:50 | XMS_ITS | Encounter Summary ---
:1960 Author Organization [facility] Address [address] [place] [address] Care Team Providers Name Role Phone Saray Nicholsoneker JOVAN Primary Care Provider [phone] Esau Serrano PA-C Unavailable Reason for Visit Reason Onset Date Comments Follow-up 08/12/2021 Encounter Details Date Type Department Care Team Description 08/12/2021 Telephone [facility] Chanelle Downing MD Follow-up Nephrology - S Prosp ect [address] [place] [address] [place] [address] (Wo rk) Social History Tobacco Use Types Packs/Day Years Used Date Never Assessed Sex Assigned at Date Recorded Male 10/05/2021 16:55 EDT documented as of this encounter Miscellaneous Notes Telephone Encounter - Navdeep Downing MD - 08/12/2021 0959 EDT Nephrotic syndrome work up is ongoing. Given the low albumin of 1.8 g/dL at initial evaluation on 07/23/2021, prophylactic anticoagulation with Warfarin was indicated but the decision to start this was complicated by our initial plans to immediate get a kidney biopsy which had since been ordered but hasnot been done yet. [facility] Labs from 07/07/2021 PLA2 R negative. C-ANCA Neg P-ANCA Neg PR3 Ab Neg MPO Ab Neg CRP <3.0 ESR 67 TONY Neg UPC 7.5 UPEP Neg High Lambda Free Light Chains (Refer to Hematology) Apolipoprotein B 207 Hep panel Neg with Hep A Ab present 25-OH Vit D <5 C3 162 C4 29 TSH 3.56 Albumin 2.5 LDL 252 Creatinine 0.99 D-Dimer from 07/25/2021 was 853 (<500 ng/ml) INR from 07/25/21 1.0 (10.4 s Prothrombin time) CBC from 07/25/21 Hb 17 WBC 15.32 PLT 374 ULTRASOUND IMAGING REPORT Observed: 07/21/2021 9:03 AM Status: F Source: [facility] REPOSITORY Patient Name: Jong Copeland Unit #: [id number] Loc: DI Ordering Provider: Navdeep Downing 431 Status: REG CLI Primary Care Provider: Johnnie Frost Date of Exam: 07/21/21 Sex: M Admission Date: 07/21/21 : 1960 Age: 61 Exam(s) US RENAL EXAM: US RENAL CLINICAL HISTORY: NEPHROTIC SYNDROME N04.9, RENAL SIZES RENAL ECHOTEXTURE TECHNIQUE: Ultrasound performed using standard protocol. COMPARISON: No exams were available for comparison FINDINGS: Right kidney measures 12.5 x 6.6 x 5.9 cm. There is a lower pole 22 millimeter simple cyst. Left kidney measures 14.6 x 6.8 x 5.0 cm. There is a 17 millimeter in diameter lower pole renal cyst. There is normal cortical medullary definition of the kidneys with well preserved cortex. There is no hydronephrosis or nephrolithiasis. Urinary bladder volume is measured at 373 cc and 32 cc pre and post void respectively. The urinary bladder is unremarkable in appearance. There are ureteral jets seen bilaterally. IMPRESSION: Negative renalultrasound. DATA REPOSITORY: Ordered By: Navdeep Downing CC: Dictated By: Isaac Angel M.D. 07/21/21 0903 Assessment: The patient was called to be given these updates but was not available and a message was left in themail box. The log snaker will be asked to call him again later today. The albumin level is higher at 2.5 g/dL and therefore there may not be an immediate indication for Warfarin anticoagulation. For the elevated D-Dimer result, he needs to call his PCP to arrange for bilateral LE calf Dopplers to rule out DVT. documented in this encounter Plan of Treatment Upcoming Encounters Date Type Specialty Care Team Description 01/28/2022 Phlebotomy Only Hematology and Oncology Blood Doctor, [facility] Hem Onc 01/28/2022 Appointment Infusion Therapy 02/04/2022 Phlebotomy Only Hematology and Oncology Blood Doctor, [facility] Hem Onc 02/04/2022 Office Visit Hematology and Oncology Henrik Marquez MD 111 [facility] 2 [place] [phone] (Wo rk) 02/04/2022 Appointment Infusion Therapy 02/11/2022 Phlebotomy Only Hematology and Oncology Blood Doctor, [facility] Hem Onc 02/11/2022 Appointment Infusion Therapy 02/18/2022 Phlebotomy Only Hematology and Oncology Blood Doctor, [facility] Hem Onc 02/18/2022 Appointment Infusion Therapy 03/09/2022 Office Visit Hematology and Oncology Dayanna Roman NP 111 [facility] 2 [place] [address] (Wo rk) documented as of this encounter Visit Diagnoses Not on filedocumented in this encounter Care Teams Cinema Or Theatre Manager Relationship Specialty Start Date End Date Saray Nicholson ND PCP - General Naturopathic Medicine 07/15/21 09/02/[address] [place] [phone] Esau Serrano PA-C 07/15/21 09/02/[address] [place] [phone] documented as of this encounter
--- OUTSIDE RECORDS SUMMARY | 2022-01-24 10:50 | XMS_ITS | Encounter Summary ---
:1960 Author Organization [facility] Address [address] [place] [address] Care Team Providers Name Role Phone Esau Serrano PA-C Primary Care Provider [phone] Saray Nicholson ND Unavailable [phone] Reason for Visit Reason Comments Procedure Encounter Details Date Type Department Care Team Description 09/22/2021 Phlebotomy Only [facility] Cancer [place] Blood Doctor, ANALI colón Hematology & Oncology [facility] Hem Onc nephr cinthya ([facility] - [facility] ([facility]) (Primary Dx) [address] [place] [address] Social History Tobacco Use Types [...] Sign Reading Time Taken Comments Blood Pressure 129/80 09/22/2021 1252 EDT Pulse 96 09/22/2021 1252 EDT Temperature 36.5 ??C (97.7 ??F) 09/22/2021 1252 EDT Respiratory Rate 16 09/22/2021 1252 EDT Oxygen Saturation 100% 09/22/2021 1252 EDT Inhaled Oxygen Concentration - - Weight 115.6 kg (254 lb 14.4 oz) 09/22/2021 1252 EDT Height - - Body Mass Index 35.06 09/10/2021 1542 EDT documented in this encounter [...] encounter Progress Notes Mendy Mcgovern MA - 09/22/2021 1145 EDT Venipuncture performed for Elaina Per orders of Elaina Number of attempts 1, NA I was supervised by Temo who was present and immediately available in the office suite. MENDY MCGOVERN MA 09/22/2021 12:05 Successful venipuncture performed by Pamela Munguia MA documented in this encounter Plan of Treatment Upcoming Encounters Date Type Specialty Care Team Description 01/28/2022 Phlebotomy Only Hematology and Oncology Blood Doctor, [facility] Hem Onc 01/28/2022 Appointment Infusion Therapy 02/04/2022 Phlebotomy Only Hematology and Oncology Blood Doctor, [facility] Hem Onc 02/04/2022 Office Visit Hematology and Oncology Henrik Marquez MD 111 [facility] 2 [place] [address] (Wo rk) 02/04/2022 Appointment Infusion Therapy 02/11/2022 Phlebotomy Only Hematology and Oncology Blood Doctor, [facility] Hem Onc 02/11/2022 Appointment Infusion Therapy 02/18/2022 Phlebotomy Only Hematology and Oncology Blood Doctor, [facility] Hem Onc 02/18/2022 Appointment Infusion Therapy 03/09/2022 Office Visit Hematology and Oncology Berkowit z, Dayanna B, PROFESSIONAL SECURITY OFFICER [address] [facility], [address] [place] [phone] (Wo rk) documented as of this encounter Procedures Procedure Name Priority Date/Time Associated Diagnosis Comme nts COMPLETE BLOOD COUNT STAT 09/22/2021 12:57 AL amyloid Res ults for this AND DIFFERENTIAL EDT nephropathy procedure a re in ([facility]) ([facility]) the results section. documented in this encounter Results (ABNORMAL) COMPLETE BLOOD COUNT AND DIFFERENTIAL (09/22/2021 12:57 EDT) WBC 14.40 (H) 4.00 - 10.40 [facility] LABORATORY SERVICES RBC 5.45 4.36 - 5.78 [facility] LABORATORY SERVICES Hemoglobin 16.5 13.8 - 17.3 [facility] gm/dL LABORATORY SERVICES HCT 48.4 39.5 - 50.2 % [facility] LABORATORY SERVICES MCV 89 81 - 95 fl [facility] LABORATORY SERVICES MCH 30.3 27.6 - 33.0 pg [facility] LABORATORY SERVICES MCHC 34.1 32.8 - 36.4 [facility] gm/dL LABORATORY SERVICES RDW-CV 14.4 (H) <14.2 % [facility] LABORATORY SERVICES RDW-SD 46.3 (H) <46.0 fl [facility] LABORATORY SERVICES PLT 342 141 - 377 K/[facility] LABORATORY SERVICES MPV 9.5 9.5 - 12.7 fl [facility] LABORATORY SERVICES Neutrophils 68.9 % [facility] LABORATORY SERVICES Lymphocytes 16.3 % [facility] LABORATORY SERVICES Monocytes 9.4 % [facility] LABORATORY SERVICES Eosinophils 3.8 % [facility] LABORATORY SERVICES Basophils 0.9 % [facility] LABORATORY SERVICES Immature Grans 0.7 % [facility] LABORATORY SERVICES Absolute Neutrophils 9.94 (H) 2.20 - 8.85 [facility] LABORATORY SERVICES Absolute Lymphocytes 2.34 1.09 - 3.30 [facility] LABORATORY SERVICES Absolute Monocytes 1.35 (H) 0.10 - 0.80 [facility] LABORATORY SERVICES Absolute Eosinophils 0.54 0.03 - 0.61 [facility] K/cmm LABORATORY SERVICES Absolute Basophils 0.13 (H) 0.01 - 0.11 [facility] K/cm LABORATORY SERVICES Absolute Immature 0.10 (H) 0.00 - 0.06 [facility] Grans K/[facility] LABORATORY SERVICES Type of Differential: Auto [facility] LABORATORY SERVICES Specimen Blood - Venous blood (substance) Performing Organization Address City/State/ZIP Code Phon e Number [facility] LABORATORY [address] [place] [address] SERVICES documented in this encounter Visit Diagnoses Diagnosis 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
--- OUTSIDE RECORDS SUMMARY | 2022-01-24 10:50 | XMS_ITS | Encounter Summary ---
:1960 Author Organization [facility] Address [address] [place] [address] Care Team Providers Name Role Phone Saray Nicholson Jessamine JOVAN Primary Care Provider [phone] Esau Serrano PA-C Unavailable Encounter Details Date Type Department Care Team Description 08/09/2021 Abstract [facility] Navdeep Downing, Cherri hrotic syndrome Nephrology - S (Primary Dx) [address] [address] [facility], [place] [address] (Wo rk) Social History Tobacco [...] Hematology and Oncology Henrik Marquez MD 111 [facility] 2 [place] [phone] (Wo rk) 02/04/2022 Appointment Infusion Therapy 02/11/2022 Phlebotomy Only Hematology and Oncology Blood Doctor, [facility] Hem Onc 02/11/2022 Appointment Infusion Therapy 02/18/2022 Phlebotomy Only Hematology and Oncology Blood Doctor, [facility] Hem Onc 02/18/2022 Appointment Infusion Therapy 03/09/2022 Office Visit Hematology and Oncology Dayanna Roman, LIVESTOCK FARMWORKER [address] [facility], [address] [place] [phone] (Wo rk) documented as of this encounter Procedures Procedure Name Priority Date/Time Associated Diagnosis Comme nts PROTEIN/CREATININE Routine 08/09/2021 7:10 EDT Nephrotic syndr ome Results for this RATIO, URINE procedure are i n the results section. HEPATIC FUNCTION Routine 08/09/2021 7:10 EDT Nephrotic syndrom e Results for this PANEL (ALB,ALK procedure are in PHOS,ALT,AST,DBIL,T the resu lts OT CRISTÓBAL,TOT PROT) section. BASIC METABOLIC Routine 08/09/2021 7:10 EDT Nephrotic syndrome Results for this PANEL (BMP) procedure are i n the results section. documented in this encounter Results PROTEIN/CREATININE RATIO, URINE (08/09/2021 7:10 EDT) Pathologist Sig nature Protein, Total, Ur 227.3 [facility] LAB Creatinine, Ur Random, 40.77 [facility] LAB UPRO mg/mg Cr, Ur 5.57 [facility] LAB Specimen Urine - Urine specimen collection, clean catch (procedure) Performing Organization Address [facility]/ZIP Code Phon e Number LAB HEPATIC FUNCTION PANEL (ALB,ALK PHOS,ALT,AST,DBIL,TOT CRISTÓBAL,TOT PROT) (08/09/2021 7:10 EDT) Pathologist Sig nature Albumin, External 1.5 LAB Total Protein, External 4.9 [facility] LAB Alkaline Phosphatase, 84 [facility] LAB ALT, External 35 LAB AST, External 34 LAB Unconjugated Bilirubin [facility] LAB Conjugated Bilirubin, 0.1 [facility] LAB Bilirubin, Total, 0.5 [facility] LAB Specimen Blood - Venous blood (substance) Performing Organization Address City/State/ZIP Code Phon e Number LAB BASIC METABOLIC PANEL (BMP) (08/09/2021 7:10 EDT) Pathologist Sig nature GFR, Calculated, >=60 [facility] LAB Glucose, Serum, 108 [facility] LAB Calculated Calcium, [facility] LAB BUN, External 21 LAB Calcium, External 8.2 LAB Chloride, External 104 LAB CO2, External 30.4 LAB Creatinine, External 1.0 LAB Fasting?, External LAB Potassium, External 4.4 LAB Sodium, External 139 LAB Specimen Blood - Venous blood (substance) Performing Organization Address City/[facility]/ZIP Code Phon e Number LAB documented in this encounter Visit Diagnoses Diagnosis Nephrotic syndrome - Primary Nephrotic syndrome with unspecified path ological lesion in kidney documented in this encounter Care Teams Assessment Nurse Relationship Specialty Start Date End Date Saray Nicholson ND PCP - General Naturopathic Medicine 07/15/21 09/02/[address] [place] [address] Esau Serrano PA-C 07/15/21 09/02/21 [address] [place] [address] documented as of this encounter
--- OUTSIDE RECORDS SUMMARY | 2022-01-24 10:50 | XMS_ITS | Encounter Summary ---
:1960 Author Organization [facility] Address [address] [place] [address] Care Team Providers Name Role Phone Saray Nicholson Johnson JOVAN Primary Care Provider Esau Serrano PA-C Unavailable Reason for Visit Reason Onset Date Comments Pre-procedure 08/12/2021 BOLA Niño Encounter Details Date Type Department Care Team Description 08/12/2021 Telephone [facility] Candace Singh, Pre -procedure (IR insurance underwriter sales Renay ) - [facility] 111 [facility] 111 [place] [address] Social History Tobacco Use Types Packs/Day Years Used Date Never Assessed Sex Assigned at Date Recorded Male 10/05/2021 16:55 EDT documented as of this encounter Miscellaneous Notes Telephone Encounter - Candace Singh RN - 08/12/2021 1524 EDT IR Pre Proc Phone call complete per my previous note, all questions answered. documented in this encounter Plan of Treatment Upcoming Encounters Date Type Specialty Care Team Description 01/28/2022 Phlebotomy Only Hematology and Oncology Blood Doctor, [facility] Hem Onc 01/28/2022 Appointment Infusion Therapy 02/04/2022 Phlebotomy Only Hematology and Oncology Blood Doctor, [facility] Hem Onc 02/04/2022 Office Visit Hematology and Oncology Hernik Marquez MD 111 [facility] 2 [place] [phone] (Wo rk) 02/04/2022 Appointment Infusion Therapy 02/11/2022 Phlebotomy Only Hematology and Oncology Blood Doctor, [facility] Hem Onc 02/11/2022 Appointment Infusion Therapy 02/18/2022 Phlebotomy Only Hematology and Oncology Blood Doctor, [facility] Hem Onc 02/18/2022 Appointment Infusion Therapy 03/09/2022 Office Visit Hematology and Oncology Dayanna Roman NP 111 [facility] 2 [place] [phone] (Isabel rk) documented as of this encounter Visit Diagnoses Not on filedocumented in this encounter Care Teams Egg Factory Worker Relationship Specialty Start Date End Date Saray Nicholson ND PCP - General Naturopathic Medicine 07/15/21 09/02/[address] [place] [address] Esau Serrano PA-C 07/15/21 09/02/[address] [place] [phone] documented as of this encounter
--- OUTSIDE RECORDS SUMMARY | 2022-01-24 10:50 | XMS_ITS | Encounter Summary ---
:[address] [facility] Address [address] [place] [address] Care Team Providers Name Role Phone Esau Serrano PA-C Primary Care Provider [phone] Saray Nicholson ND Unavailable [phone] Encounter Details Date Type Department Care Team Description 09/07/2021 Lab Requisition [facility] Outr Resulting Lab, Pathology & Laboratory Provider [facility] [address] [place] [id number] Social History Tobacco Use Types Packs/Day Years [...] Phlebotomy Only Hematology and Oncology Blood Doctor, [facility] Hem Onc 01/28/2022 Appointment Infusion Therapy 02/04/2022 Phlebotomy Only Hematology and Oncology Blood Doctor, [facility] Hem Onc 02/04/2022 Office Visit Hematology and Oncology Henrik Marquez MD 111 [facility] 2 [place] [address] (Wo rk) 02/04/2022 Appointment Infusion Therapy 02/11/2022 Phlebotomy Only Hematology and Oncology Blood Doctor, [facility] Hem Onc 02/11/2022 Appointment Infusion Therapy 02/18/2022 Phlebotomy Only Hematology and Oncology Blood Doctor, [facility] Hem Onc 02/18/2022 Appointment Infusion Therapy 03/09/2022 Office Visit Hematology and Oncology Dayanna Roman, SLIDE ATTENDANT [address] [facility], [address] [place] [address] (Wo rk) documented as of this encounter Procedures Procedure Name Priority Date/Time Associated Comments Diagnosis SPEP, INCLUDES Today 09/06/2021 14:04 Results f or this QUANTITATION OF EDT procedure ar e in MONOCLONAL SPIKE the results PERFORMABLE section. SPEP, INCLUDES Routine 09/06/2021 14:04 Results f or this QUANTITATION OF EDT procedure ar e in MONOCLONAL SPIKE the results section. PROTEIN, TOTAL Today 09/06/2021 14:04 EDT documented in this encounter Results (ABNORMAL) SPEP, INCLUDES QUANTITATION OF MONOCLONAL SPIKE PERFORMABLE (09/06/2021 14:04 EDT) Albumin % 45.6 (L) 55.8 - 66.1 % [facility] Albumin g/dL 2.2 (L) 3.6 - 5.2 g/dL [facility] Alpha-1 % 5.8 (H) 2.9 - 4.9 % [facility] Alpha-1 g/dL 0.30 0.15 - 0.40 [facility] g/dL LABORATORY SERVICES Alpha-2 % 27.4 (H) 7.1 - 11.8 % [facility] Alpha-2 g/dL 1.30 (H) 0.50 - 1.00 [facility] g/dL LABORATORY SERVICES Beta % 13.0 8.4 - 13.1 % [facility] Beta g/dL 0.60 0.60 - 1.20 [facility] g/dL LABORATORY SERVICES Gamma % 8.2 (L) 11.1 - 18.8 % [facility] Gamma g/dL 0.40 (L) 0.60 - 1.60 [facility] g/dL LABORATORY SERVICES SPEP Comment No apparent [facility] monoclonal protein LABORATORY SERVICES seen on serum electrophoresisComm ent: See scanned/supplementa ry report. Total Protein 4.8 (L) 6.3 - 8.2 g/dL [facility] Specimen Blood - Venous blood (substance) Narrative This result has an attachment that is no t available. Performing Organization Address City/State/ZIP Code Phon e Number [facility] [address] [place] [address] SERVICES PROTEIN, TOTAL (09/06/2021 14:04 EDT) Specimen Blood - Venous blood (substance) Performing Organization Address City/State/ZIP Code Phon e Number [facility] [address] [place] [address] SERVICES documented in this encounter Visit Diagnoses Not on filedocumented in this encounter Care Teams White Hat Hacker Relationship Specialty Start Date End Date Esau Serrano PA-C PCP - General 09/03/21 [address] [place] [address] Saray Nicholson ND Naturopathic Medicine 09/03/[address] [place] [phone] documented as of this encounter
--- OUTSIDE RECORDS SUMMARY | 2022-01-24 10:50 | XMS_ITS | Encounter Summary ---
:1960 Author Organization [facility] Address [address] [place] [address] Care Team Providers Name Role Phone Esau Serrano PA-C Primary Care Provider [phone] Saray Nicholson ND Unavailable [phone] Encounter Details Date Type Department Care Team Description 09/07/2021 Lab Requisition [facility] Outr Resulting Lab, Pathology & Laboratory Provider [facility] [address] [id number] Social History Tobacco Use Types Packs/Day Years [...] Only Hematology and Oncology Blood Doctor, [facility] Hem Onc 01/28/2022 Appointment Infusion Therapy 02/04/2022 Phlebotomy Only Hematology and Oncology Blood Doctor, [facility] Hem Onc 02/04/2022 Office Visit Hematology and Oncology Henrik Marquez MD 111 [facility] 2 [place] [address] (Wo rk) 02/04/2022 Appointment Infusion Therapy 02/11/2022 Phlebotomy Only Hematology and Oncology Blood Doctor, [facility] Hem Onc 02/11/2022 Appointment Infusion Therapy 02/18/2022 Phlebotomy Only Hematology and Oncology Blood Doctor, [facility] Hem Onc 02/18/2022 Appointment Infusion Therapy 03/09/2022 Office Visit Hematology and Oncology Dayanna Roman, KODI [address] [place] [facility] [address] [place] [address] (Wo rk) documented as of this encounter Procedures Procedure Name Priority Date/Time Associated Comments Diagnosis URINE MONOCLONAL Today 09/07/2021 14:50 Results for this PROTEIN STUDY (UPEP EDT procedur e are in WITH IMMUNOTYPING) the [facility] ts PERFORMABLE section. PROTEIN, TOTAL, Today 09/07/2021 14:50 RANDOM, URINE EDT URINE MONOCLONAL Routine 09/07/2021 14:50 Results for this PROTEIN STUDY (UPEP EDT procedur e are in WITH IMMUNOTYPING) the [facility] ts section. documented in this encounter Results URINE MONOCLONAL PROTEIN STUDY (UPEP WITH IMMUNOTYPING) PERFORMABLE (09/07/2021 14:50 EDT) Albumin, Urine % 76.5 N/A % [facility] Albumin, Urine 805 mg/dL [facility] mg/dL [facility] Globulins, Urine 23.5 N/A % [facility] % [facility] Globulins, Urine 247 mg/dL [facility] mg/dL [facility] UPEP Comment See CommentComment: [facility] Electrophoresis [facility] screening performed; SERVICES Immunotyping to follow. See scanned/supplementary report. Immunotyping, Current [facility] Urine Interpretation: [facility] Negative for free SERVICES monoclonal light chains. Reviewed by: Kenji Cuevas MD, PhD 09/08/2021 14:07. Total Protein, 1,052 See Note [facility] Urine Comment: mg/dL [facility] NOTE: SERVICES Reference range has not been established for total protein concentration in random urine specimens. Specimen Urine - Urine specimen collection, clean catch (procedure) Narrative This result has an attachment that is no t available. Performing Organization Address City/State/ZIP Code Phon e Number [facility] [address] [place] [address] SERVICES PROTEIN, TOTAL, RANDOM, URINE (09/07/2021 14:50 EDT) Specimen Urine - Urine specimen collection, clean catch (procedure) Performing Organization Address City/State/ZIP Code Phon e Number [facility] [address] [place] [address] SERVICES documented in this encounter Visit Diagnoses Not on filedocumented in this encounter Care Teams Director Sales Training Relationship Specialty Start Date End Date Esau Serrano PA-C PCP - General 09/03/21 [address] [place] [address] Saray Nicholson ND Naturopathic Medicine 09/03/[address] [place] [phone] documented as of this encounter
--- OUTSIDE RECORDS SUMMARY | 2022-01-24 10:50 | XMS_ITS | Encounter Summary ---
:1960 Author Organization [facility] Address [address] [place] [address] Care Team Providers Name Role Phone Esau Serrano PA-C Primary Care Provider Saray Nicholson ND Unavailable [phone] Reason for Visit Reason Comments Procedure Encounter Details Date Type Department Care Team Description 09/22/2021 Procedure visit [facility] Dayanna Raman A L amyloid Hematology & AMUSEMENT [employer] nephropathy Oncology - [address] ([facility] ([facility]) [facility] (Primary Dx) [address] [place] [address] Pavilion, Level [id number] [place] [address] [phone] (Wo rk) Social History Tobacco Use [...] encounter Progress Notes Dayanna Raman NP - 09/22/2021 1300 EDT lid documented in this encounter Procedure Notes Dayanna Raman NP - 09/22/2021 1300 EDT Title of Procedure: Bone marrow biopsy and aspirate Date Performed: 09/22/21 Time Performed: 13:00 Performed by: Dayanna Raman NP Indications and/or Provisional Diagnosis: Jong Copeland (Tim) is a 61 y.o.male with a renal biopsy showing AL amyloidosis, lambda light chain subtype. A bone marrow biopsy is being performed for further diagnostic and staging purposes. Condition: The condition of the patient was Good Consent: The patient has consented after being informed of the risks, benefits and alternatives. Type of Anesthesia or Sedation: 1% lidocaine subcutaneously Estimated Blood Loss: The estimated blood loss was Minimal Time Out: A time-out was completed prior to procedure verifying correct patient, procedure, site, positioning, and special equipment if applicable. Procedure Technique: The patient was placed in the prone position, and the area around the left posterior superior iliac crest was cleansed and draped in a sterile fashion. The area was anesthetized with 1% lidocaine. Bonemarrow biopsy and aspirate were obtained without difficulty. Specimens were sent for cytogenetics with FISH (if needed), as well as flow cytometry. An additional sample was obtained in an EDTA tube to be used for molecular testing as indicated. Following the procedure, hemostasis was obtained and pressure bandage was applied. Patient was instructed to remain in the supine position for approximately 10-15 minutes to prevent bleeding. Patient tolerated the procedure well. Complications: None documented in this encounter Plan of Treatment Upcoming Encounters Date Type Specialty Care Team Description 01/28/2022 Phlebotomy Only Hematology and Oncology Blood Doctor, [facility] Hem Onc 01/28/2022 Appointment Infusion Therapy 02/04/2022 Phlebotomy Only Hematology and Oncology Blood Doctor, [facility] Hem Onc 02/04/2022 Office Visit Hematology and Oncology Henrik Marquez MD [address] [facility], [facility] [address] [place] [phone] (Wo rk) 02/04/2022 Appointment Infusion Therapy 02/11/2022 Phlebotomy Only Hematology and Oncology Blood Doctor, [facility] Hem Onc 02/11/2022 Appointment Infusion Therapy 02/18/2022 Phlebotomy Only Hematology and Oncology Blood Doctor, [facility] Hem Onc 02/18/2022 Appointment Infusion Therapy 03/09/2022 Office Visit Hematology and Oncology Dayanna Roman NP [address] [facility], [facility] [address] [place] [address] (Wo rk) documented as of this encounter Procedures Procedure Name Priority Date/Time Associated Diagnosis Comme nts LEUKEMIA/LYMPHOMA Routine 09/22/2021 13:53 AL amyloid Result s for this PANEL BY FLOW EDT nephropathy procedure are in CYTOMETRY (BONE ([facility]) ([facility]) the resul ts MARROW) section. BONE MARROW EXAM Routine 09/22/2021 13:53 AL amyloid Results for this WITH REFLEX EDT nephropathy procedure are i n ([facility]) ([facility]) the results section. BONE MARROW EXAM Routine 09/22/2021 13:53 AL amyloid Results for this WITH REFLEX TESTING EDT nephropathy procedur e are in ([facility]) ([facility]) the results section. documented in this encounter Results LEUKEMIA/LYMPHOMA PANEL BY FLOW CYTOMETRY (BONE MARROW- REFLEX ONLY) (09/22/2021 13:53 EDT) Final Bone marrow, flow cytometric analysis: [facility] Immunophenotypic - No definitive immunophenot ypic evidence of a clonal cell population. See comment. CENTER Interpretation LABORATORY SERVICES Comment The results of flow [facility] cytometry show no CENTER definitive LABORATORY immunophenotypic SERVICES evidence of involvement by a clonal lymphoproliferative or myeloproliferative disorder. No definitive clonal plasma cell population is seen. Correlation of these findings with morphologic and clinical data is essential; please refer to report [id number] for morphologic details. Attestation By the signature below, [facility] Dionte maravillaally the attending physician CENTER sign ed by Sarah, certifies that they LABORATORY Briana Giordano MD on have 1) personally SERVICES 09/23/2021 at 1451 conducted a gross and/or microscopic examination of the described specimen(s), and/or personally interpreted the results of laboratory testing of the described specimen(s), and 2) personally rendered or confirmed the above diagnosis. 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 Bone LABORATORY marrow biopsy for SERVICES diagnostic and staging. Description The specimen consists of bon e marrow that has been prepared using ammonium chloride lysing agent. Gating is performed using CD45 fluorescence and side scatter. Cellular viability (assessed by 7-AAD excl [facility] usion) is excellent (99%) am parker cells with CD45 and side scatter properties typical of lymphocytes and excellent (99%) among CD45+ events overall. Scatter plots incorporating all of the markers have [facility] n interpreted and evaluated for the presence or absence of abnormal [...] myeloid lineage. There is no increase in blasts or plasma cells. A small population of hematogones is present. Flow Markers CD10, CD117, CD11c, [facility] CD138, CD16, CD19, CENTER CD20, CD27, CD3, CD33, LABORATORY CD34, CD38, CD4, CD45, SERVICES CD5, CD56, CD8, CD81, cyKappa, cyLambda, HLA-DR, Snowslip, and Lambda FDA Disclaimer This test was developed [facility] and its performance CENTER characteristics LABORATORY determined by the SERVICES Department of Pathology and Laboratory Medicine, [facility], [place], [place]. It has not been cleared or [...] complexity clinical laboratory testing. Sample Analyzed Date 09/23/21 13:13 [facility] and [facility] LABORATORY SERVICES Scanned Images [facility] LABORATORY SERVICES Specimen Bone Marrow - Specimen from bone marrow obtained by aspiration (specimen) Performing Organization Address City/State/ZIP Code Phon e Number [facility] LABORATORY [address] [place] [address] SERVICES BONE MARROW EXAM WITH REFLEX (09/22/2021 13:53 EDT) Final Diagnosis Peripheral blood: [facility] - Leukocytosis (WBC 14,400/c mm) with neutrophilia (9,940/cmm) and monocytosis (1,350/cmm). CENTER LABORATORY Bone marrow: SERVICES - Cellular bone marrow with maturing trilineage hemato poiesis. See comment. - Focal amyloid present within vascular champagne. Diagnosis Comment The findings are those [facility] of a cellular bone CENTER marrow with maturing LABORATORY trilineage SERVICES hematopoiesis. Plasma cells are mildly increased (3-5%) with a slight lambda predominance. B-cells and T-cells are not increased and no lymphoid aggregates are seen. Concurrent flow cytometry ([id number]) shows no definitive immunophenotypic evidence of a clonal cell population. Focal amyloid is seen within rare vascular champagne. Taken together, there is no bone marrow involvement by plasma cell myeloma or lymphoma. Clinical and laboratory correlation is essential. Attestation By the signature [facility] Electronica lly below, the attending CENTER signed by physician Sarah certifies LABORATORY Briana Giordano MD on that they have 1) SERVICES 09/23/2021 a t 1454 personally conducted a gross and/or microscopic examination of the described specimen(s), and/or personally interpreted the results of laboratory testing of the described specimen(s), and 2) personally rendered or confirmed the above diagnosis. Microscopic CBC (09/22/21): Hemoglobin 16. 5 gm/dl, Hematocrit 48.4%, RBC 5.45 M/cmm, MCV 89 fl, MCH 30.3 pg, MCHC 34.1 g/dl, RDW 14.4%. White cells (all in cells/cmm): Total 14,400, with 9,940 neutrophils, 2,340 lymp [facility] Description hocytes, 1,350 monocytes, 54 0 eosinophils, 130 basophils, 100 immature granulocytes. Platelet count 342,000/cmm. The peripheral smear is reviewed and confirms these findings. CENTER LABORATORY Biopsy (decalcified): Total biopsy length: 7 mm; Evaluable length: 4 mm. Consisting of soft tissue, periostium, cortical bone, trabeculae of lamellar bone, celular bone marrow, and crush and aspiration SERVICES artifact. The fat:cell ratio is variable and evaluation is precluded by aspiration artifact, but is estimated to be 50:50. The M:E ratio is 2:1. Megakaryocytes average 3/hpf with a range of 2-5. Plasmac ytosis is moderate. Hemoside rin: trace (0-4+) (Prussian Blue stain for iron). Congo red stain is focally positive with rare vessel champagne. Immunoperoxidase stains were performed on this case to further evaluate the bone marrow. ANTIBODY(CLONE)(BLOCK):RESULT CD138 (M115, Leica) (B1): Hi ghlights plasma cells, scattered singly throughout the interstitium, accounting for approximately 3-5% of total cellularity Snowslip (L1C1, [employer]) (B1): Highlights a subset of juliette sma cells Lambda (N10/2, [employer]) (B1) : Highlights a subset of plasma cells; slight lambda predominance PAX-5 (1EW, Leica) (B1): Hig hlights few B-cells, scattered singly throughout the interstitium CD3 (SP7, [employer]) (B1): Highlights T-cells, scattered singly throughout the interstitium Filtered section: Consisting of few marrow particles and crushed bone. Bone marrow morphologically similar to that seen in the biopsy. Hemosiderin: trace (0-4+) (Prussian Blue stain for iron). Smears: Particulate and cellular. Imprints: Aparticulate and cellular. Granulopoiesis: Maturing with minimal cytologic change . Erythropoiesis: Maturing with minimal cytologic change . Megakaryocytes: Moderate with a spectrum of typical fo bennett. Other cells: Moderate lymphocytes, monocytes, and plas ma cells. Hemosiderin: 1+ (0-4+) (Prus lucy Blue stain for iron) with 94% normoblasts, 6% sideroblasts. 500 Cell Differential Count Late granulocytes 44% Early granulocytes 11% Erythroids 19% Lymphocytes 14% Monocytes/histiocytes 5% Plasma cells 5% Blasts <1% Special Studies Flow Cytometry ([id number]): N o definitive immunophenotypic evidence of a clonal cell population. See separate report. NOTE: One or more of the re agents used in immunoperoxidase testing in this case may not have been cleared or approved by the U.S. Food and Drug Administration (FDA). The FDA has determined that such cl earance or approval is not n ecessary. These tests are used for clinical purposes. They should not be regarded as investigational or for research. These reagents' performance characteristics have been de termined by [facility] and/or by the referring laboratory. The positive and negative controls worked appropriately. If immunoperoxidase staining has been performed on alcoh ol fixed cytology specimens, which has not been fully validated, the assays should be interpreted with caution and correlated with clinical data. This laboratory is certified under the Clinical Laborato ry Improvement Amendments of 1988 (CLIA-88) as qualified to perform high complexity clinical laboratory testing. 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 Bone LABORATORY marrow biopsy for SERVICES diagnostic and staging. Gross Description A. [facility] Received in formalin gladis d with proper patient identification (initials B,T) and smear is an aggregate of red-brown predominantly blood clot, 0.5x0.3x0.1cm. Filtered and entirely submitted in A2. CENTER LABORATORY Byron Salamanca 09/22/2021 14:40 SERVICES B. Received in formalin gladis d with proper patient identification (initials B,T) is an intact bone core, 0.8x0.2x0.2cm and a minimal amount of associated blood clot. Entirely submitted in B1 following decalcification. Byron Salamanca 09/22/2021 14:42 Resident/Fellow: [facility] LABORATORY SERVICES Scanned Images [facility] LABORATORY SERVICES Specimen Bone Marrow - Specimen from bone marrow obtained by biopsy (specimen) Bone marrow specimen (specimen) - Specim en from bone marrow obtained by biopsy (specimen) Performing Organization Address City/State/ZIP Code Phon e Number [facility] LABORATORY [address] [place] [address] SERVICES (ABNORMAL) COMPLETE BLOOD COUNT AND DIFFERENTIAL (09/22/2021 12:57 EDT) WBC 14.40 (H) 4.00 - 10.40 [facility] LABORATORY SERVICES RBC 5.45 4.36 - 5.78 [facility] LABORATORY SERVICES Hemoglobin 16.5 13.8 - 17.3 [facility] gm/dL LABORATORY SERVICES HCT 48.4 39.5 - 50.2 % [facility] LABORATORY SERVICES MCV 89 81 - 95 fl [facility] LABORATORY SERVICES MCH 30.3 27.6 - 33.0 pg [facility] LABORATORY SERVICES MCHC 34.1 32.8 - 36.4 [facility] gm/dL LABORATORY SERVICES RDW-CV 14.4 (H) <14.2 % [facility] LABORATORY SERVICES RDW-SD 46.3 (H) <46.0 fl [facility] LABORATORY SERVICES PLT 342 141 - 377 K/[facility] LABORATORY SERVICES MPV 9.5 9.5 - 12.7 fl [facility] LABORATORY SERVICES Neutrophils 68.9 % [facility] LABORATORY SERVICES Lymphocytes 16.3 % [facility] LABORATORY SERVICES Monocytes 9.4 % [facility] LABORATORY SERVICES Eosinophils 3.8 % [facility] LABORATORY SERVICES Basophils 0.9 % [facility] LABORATORY SERVICES Immature Grans 0.7 % [facility] LABORATORY SERVICES Absolute Neutrophils 9.94 (H) 2.20 - 8.85 [facility] LABORATORY SERVICES Absolute Lymphocytes 2.34 1.09 - 3.30 [facility] LABORATORY SERVICES Absolute Monocytes 1.35 (H) 0.10 - 0.80 [facility] LABORATORY SERVICES Absolute Eosinophils 0.54 0.03 - 0.61 [facility] LABORATORY SERVICES Absolute Basophils 0.13 (H) 0.01 - 0.11 [facility] LABORATORY SERVICES Absolute Immature 0.10 (H) 0.00 - 0.06 [facility] LABORATORY SERVICES Type of Differential: Auto [facility] LABORATORY SERVICES Specimen Blood - Venous blood (substance) Performing Organization Address City/State/ZIP Code Phon e Number [facility] LABORATORY [address] [place] [address] SERVICES documented in this encounter Visit Diagnoses 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 Other amyloidosis documented in this encounter Orders Medications Ordered That Might Not Have Count Last Ord ered Date First Ordered Date Been Administered fentaNYL citrate (PF) 50 mcg/mL injection 1 2021 heparin 1,000 unit/mL injection 2 09/23/2021 midazolam (PF) (VERSED) 1 mg/mL injection 1 2021 nitroglycerin 100 mcg/mL syringe 1 09/23/2021 verapamil (ISOPTIN) 2.5 mg/mL injection 2 09/24/19 lidocaine 1 % injection 5 mL 3 09/22/2021 documented in this encounter Care Teams Science Liaison Relationship Specialty Start Date End Date Esau Serrano PA-C PCP - General 09/03/21 [address] [place] [address] Saray Nicholson ND Naturopathic Medicine 09/03/[address] [place] [id number] documented as of this encounter
--- OUTSIDE RECORDS SUMMARY | 2022-01-24 10:50 | XMS_ITS | Encounter Summary ---
:1960 Author Organization [facility] Address [address] [place] [id number] Care Team Providers Name Role Phone Lyn Saray Antonio JOVAN Primary Care Provider [phone] Esau Serrano PA-C Unavailable Reason for Referral Radiology Services (Routine/Next Available) - Authorization Not Required Specialty Diagnoses / Procedures Referred By Contact Refer red To Contact Diagnoses Nephrotic syndrome Navdeep Downing MD [facility] Procedures IR BIOPSY [address] [phone] Referral ID Status Reason Start Expiration Visits Visits Date Date Requested Authorized [id number] Authorization Not 07/23/2021 1 1 Required Reason for Visit Radiology Services (Routine/Next Available) - Authorization Not Required Specialty Diagnoses / Procedures Referred By Contact Refer red To Contact Diagnoses Nephrotic syndrome Navdeep Downing MD [facility] Procedures IR BIOPSY [address] [phone] Referral ID Status Reason Start Expiration Visits Visits Date Date Requested Authorized [id number] Authorization Not 07/23/2021 1 1 Required Encounter Details Date Type Department Care Team Description 08/18/2021 [facility] Cosmo Garcia Nephro tic syndrome Encounter Interventional MD [facility] [address], [facility] 1 [place] [phone] Social History Tobacco Use Types Packs/Day Years [...] Sign Reading Time Taken Comments Blood Pressure 145/98 08/18/2021 1345 EDT Pulse - - Temperature 36.6 ??C (97.9 ??F) 08/18/2021 1345 EDT Respiratory Rate 18 08/18/2021 1345 EDT Oxygen Saturation 98% 08/18/2021 1345 EDT Inhaled Oxygen Concentration - - Weight 111.1 kg (245 lb) 08/18/2021 0927 EDT Height 182.9 cm (6') 08/18/2021 0927 EDT Body Mass Index 33.23 08/18/2021 0927 EDT documented in this encounter Discharge Instructions InstructionsRuVanda bradshaw RN - 08/18/2021 RENAL BIOPSY DISCHARGE INSTRUCTIONS Provider - Cosmo Garcia MD Diet - You may resume your normal diet after the procedure. It is important for you to drink fluids as tolerated unless otherwise instructed by your physician. Activity - Have someone drive you home today. Do not operate a vehicle until the next day. Light activity for the rest of today, no strenuous exercise or heavy lifting (greater than 10 pounds) for two days. Discomfort - Do not take aspirin containing products, Ibuprofen, Advil, Motrin, Plavix, Vitamin E, Coumadin or blood thinning products for 24 hours after the procedure. You may take Tylenol (1-2 tablets every 4-6 hours) for mild discomfort. Call physician for pain unrelieved by Tylenol for the first 24 hours following your procedure. Dressing - Check the dressing or Band-Aid throughout the day for any increase in drainage. Keep the Band-Aid or dressing dry for 24 hours. If you notice bleeding, apply pressure for 10 minutes and slowly release the pressure to see if the bleeding has stopped. If the bleeding does not stop, go to the nearest Emergency Room. You may remove the Band-Aid or dressing tomorrow. Other - It is normal to have blood in the urine after a kidney biopsy. Urine may be light cranberry color or darker, small clots may also be present. Urine should start to clear within two days. If your urine continues to contain blood after two days or blood increases in urine after discharge, or if you are feeling lightheaded, call physician immediately. If you have had a kidney transplant and notice excessive swelling in the new kidney/biopsy area or decreased urine output call the transplant clinic immediately. ?? IF YOU HAVE ANY QUESTIONS OR CONCERNS REGARDING THE PROCEDURE, PLEASE CALL THE INTERVENTIONAL RADIOLOGY CLINIC AT . SOMEONE IS AVAILABLE TO TAKE YOUR CALL 24 HOURS A DAY. documented in this encounter Medications at Time [...] 1 cap (100mg) 1xday-to prevent clots capsule documented as of this encounter Discharge Disposition Disposition Code Departure Means Destination Home or Self Care documented in this encounter Progress Notes Vanda Shaw RN - 08/18/2021 0900 EDT Pt brought to angio 25 at 1052 after correctly identifying. Pt in agreement with plan for u/s guidedright kidney biopsy with moderate sedation. Pt's allergies, med list, labs, NPO status, H&P, andIV patency assessed. Pt verbalizes understanding of procedure - all questions answered. Pt arrives alert and oriented x 3, denies pain. Pt positioned prone. Safety strap is in place, and pt reports no discomfort. Pt's extremities on pads. Pt prepped with duraprep by amt according to manufacturing standard/recommendations. 1105 - Time out and procedure started. (slr, amt, garcia) 1145 - Procedure ended. U/s guided Right Renal biopsy. See provider note for procedure outcome. Gauze and tegaderm by provider. Pt tolerated procedure well with Versed 1.5 mg IV and Fentanyl 75 mcg IV over 37 minutes. Report called to Peggy in/on CVU. Pt transferred to CVU in stable condition. At d/c from room patient A+O x3, denies pain. documented in this encounter H&P Notes Munir Ho PA-C - 08/18/2021 0900 EDT The preoperative history and physical which was performed within 30 days of this procedure has been reviewed and the clinically appropriate elements of the physical examination havebeen repeated. There are no changes to the documented history and physical or if so such changes aredocumented below Munir Ho PA-C 08/18/2021 9:33 Navdeep Le MD - 08/12/2021 1025 EDT Nephrotic syndrome work up is ongoing. Given the low albumin of 1.8 g/dL at initial evaluation on 07/23/2021, prophylactic anticoagulation with Warfarin was indicated but the decision to start this was complicated by our initial plans to immediate get a kidney biopsy which had since been ordered but hasnot been done yet. [facility] Labs from 07/07/2021 PLA2 R [...] Observed: 07/21/2021 9:03 AM Status: F Source: [facility] REPOSITORY Patient Name: Jong Copeland Unit #: [id number] Loc: Ordering Provider: Navdeep Downing 431 Status: REG [facility] Primary Care Provider: Johnnie Frost Date of [...] message was left in themail box. The fiberglass roller will be asked to call him again later today. The albumin level is higher at 2.5 g/dL and therefore there may not be an immediate indication for Warfarin anticoagulation. For the elevated D-Dimer result, he needs to call his PCP to arrange for bilateral LE calf Dopplers to rule out DVT. documented in this encounter Procedure Notes Cosmo Garcia MD - 08/18/2021 0900 EDT IR Procedure Note Radiologist: Jose Procedure: Renal biopsy Diagnosis/Reason: Nephrotic syndrome Anesthesia: Sedation/local Approach: Left side Medications: Fentanyl/versed/lidocaine Contrast: none Fluoro time: See dictation EBL: trace Specimens: Cores to lab Preliminary Findings: Histology Technician samples Complications: No immediate Recommendations: See orders. documented in this encounter Plan of Treatment Upcoming Encounters Date Type Specialty Care Team Description 01/28/2022 Phlebotomy Only Hematology and Oncology Blood Doctor, [facility] Hem Onc 01/28/2022 Appointment Infusion Therapy 02/04/2022 Phlebotomy Only Hematology and Oncology Blood Doctor, [facility] Hem Onc 02/04/2022 Office Visit Hematology and Oncology Henrik Marquez MD [address] [phone] (Wo rk) 02/04/2022 Appointment Infusion Therapy 02/11/2022 Phlebotomy Only Hematology and Oncology Blood Doctor, [facility] Hem Onc 02/11/2022 Appointment Infusion Therapy 02/18/2022 Phlebotomy Only Hematology and Oncology Blood Doctor, [facility] Hem Onc 02/18/2022 Appointment Infusion Therapy 03/09/2022 Office Visit Hematology and Oncology Dayanna Roman NP [address] [phone] (Wo rk) documented as of this encounter Procedures Procedure Name Priority Date/Time Associated Diagnosis Comme nts IR BIOPSY Routine 08/18/2021 11:59 Nephrotic syndrome Resul ts for this EDT procedure are i n the results section. SURGICAL PATHOLOGY Routine 08/18/2021 10:10 Resul ts for this EDT procedure are i n the results section. PROTIME STAT 08/18/2021 9:42 EDT Results for this procedure are i n the results section. documented in this encounter Results IR BIOPSY (08/18/2021 11:59 EDT) Anatomical Region Laterality Modality Computed Tomography Specimen Impressions [facility] [place] - 08/18/2021 13:46 EDT Histology Technician [place] renal core biopsy as described Narrative [facility] - 08/18/2021 13:46 EDT History: Nephrotic syndrome; request for [place] kidney biopsy. TECHNIQUE AND FINDINGS: After explaining the benefits and the ri sks of the procedure with the patient, verbal consent for the procedure was obtained and witnessed. The patient was prepped and draped in sterile fashion. 1% lido nestor was used for local analgesia. Cons cious sedation was administered with the monitoring of the patient's heart rate, blood pressure, respiratory rate, and oxygen saturation. ??I personally spent 25 minutes in continuous dabe-ja-mlzp atten dance with the patient during the administration of the moderate sedation and supervised the moderate sedation services that were monitored by an independent chris barber observer who had no other duties dur ing the procedure. I have personally reviewed the nursing documentation. Sonographic guidance was used to positio n coaxial needle into the inferior pole of the left [place] kidney. All sonographic images were recorded. Core biopsies were obtained and analyzed by pathology ser vice present for biopsy. Finally, all ne edles were removed and hemostasis was achieved at the puncture site with sterile pressure bandage. Patient tolerated procedure well without complication. Procedure Note Cosmo Garcia MD - 08/18/2021 History: Nephrotic syndrome; request for [place] kidney biopsy. TECHNIQUE AND FINDINGS: After explaining the benefits and the ri sks of the procedure with the patient, verbal consent for the procedure was obtained and witnessed. The patient was prepped and draped in sterile fashion. 1% lidocaine was used for local analgesia. Conscious sedation was administered with the monitoring of the patient's heart rate, blood pressure, respiratory rate, and oxygen saturation. I personally spent 25 minutes in continuous newl-fq-jqqw attendance with the patient during the administration of the moderate sedation and supervised the moderate sedation services that were monitored by an independent trained observer who had no other duties during the procedure. I have personally reviewed the nursing documentation. Sonographic guidance was used to positio n coaxial needle into the inferior pole of the left [place] kidney. All sonographic images were recorded. Core biopsies were obtained and analyzed by pathology service present for biopsy. Finally, all needles were remove d and hemostasis was achieved at the puncture site with sterile pressure bandage. Patient tolerated procedure well without complication. IMPRESSION Histology Technician [place] renal core biopsy as described Performing Organization Address City/State/ZIP Code Phon e Number [facility] SUR[facility]ICAL PATHOLOGY (08/18/2021 10:10 EDT) Note to Patient The following [facility] pathology results have CENTER been interpreted by your LABORATORY pathologist and may be SERVICES available to you before your health provider has had the opportunity to review them. Please allow time for your provider to receive these results and explore management options, if applicable. Final Diagnosis A. KIDNEY, [place], NEEDLE CORE BIOPSIES: [facility] - Amyloidosis, AL (lambda)- type. See comment. [facility] Diagnosis Comment Glomerular and [facility] extra-glomerular CENTER vascular amyloid LABORATORY deposits are present. On SERVICES immunofluorescence, the amyloid deposits show monotypic staining with anti-lambda as well as staining with C3 and the greatest immunoglobulin staining with anti-IgM. These findings suggest AL amyloidosis. Tissue was sent to [facility] for protein typing of the amyloidosis which confirms that this represents [place] (lambda) amyloidosis (see separate Chand report). Electron microscopy shows deposition of small randomly arranged fibrils that are consistent with amyloid. Clinical correlation and follow up are recommended to determine if there is an underlying clonal plasma cell proliferation/ B-cell lymphoma that is producing the amyloid protein. The preliminary interpretation of this biopsy was electronically communicated to Dr. Downing on August 21, 2021. Attestation By the signature below, [facility] Elec tronically the attending physician CENTER sign ed by Roland, certifies that they have LABORATORY Irma fly Campos MD on 1) personally conducted SERVICES 2021 at 1233 a gross and/or microscopic examination of the described specimen(s), and/or personally interpreted the results of laboratory testing of the described specimen(s), and 2) personally rendered or confirmed the above diagnosis. Microscopic BIOPSY ADEQUACY: Adequate biopsy with cortex and medulla UV MEDICAL Description GLOMERULI: 22 (on Level 1+3 of both blocks), one of which is globally sclerotic CENTER GLOMERULAR CELLULARITY: Norm ocellular enlarged glomeruli with capillary and mesangial deposition of pale pink homogeneous material. LABO RATORY GLOMERULAR CAPILLARIES: Thic kened capillary champagne due to deposition of eosinophilic homogeneous material and narrowing of lumens which is PAS negative, Hutchins negative on PAS and Hutchins silver stains SERVICES GLOMERULAR MESANGIUM: Expand ed mesangial regions with deposition of eosinophilic pink homogeneous material. INTERSTITIAL INFLAMMATION: M ild (less than 10%) patchy mixed interstitial inflammation. INTERSTITIAL FIBROSIS: Mild (10%) cortical interstitial fibrosis on Trichrome stain TUBULAR INJURY: Prominent pr otein reabsorption droplets within tubules with focal areas of tubular atrophy TUBULAR INFLAMMATION: Rare t ubules with intraluminal acute inflammation and focal tubulitis with reactive epithelial changes ARTERIOLES: Variable amounts of eosinophilic homogeneous material deposited within arteriolar champagne without inflammation, necrosis or thrombosis. ARTERIES: Small arteries con tain intimal and medial pale pink homogeneous extracellular material. Larger arteries with mild intimal fibrosis without inflammation, necrosis or thrombosis. OTHER FINDINGS: Congo red st ain positive within glomerular and vascular regions with birefringence under polarized light Ancillary Studies IMMUNOFLUORESCENCE REPORT [facility] MEDICA L INTERPRETATION: CENTER - Monotypic staining of amyl oid deposits with anti-lambda and anti-C3 with less prominent staining with anti-C1q and anti-IgM. LABORATORY SERVICES DESCRIPTION: A portion of this kidney is placed in transport media and subsequently frozen for immunofluorescence. The frozen section slides show 2-3 glomeruli per section. Frozen section slides are exposed to fluor escein- labelled antibodies directed against IgG, IgA, IgM, C3, C1q, Fibrinogen, [place], Lambda, and polyclonal immunoglobulins (IgG, IgA, IgM). The amyloid deposits within the glomeruli and vasculature stain most strongly with ant i-lambda (3+). There is 2 to 3+ smudgy staining of the amyloid with anti-C3 and 2+ staining with anti-C1q. In addition there is 2+ staining with anti-IgM and the polyvalent c onjugate. Anti-IgA, anti-IgG and anti-fibrinogen show no definitive staining. The intratubular casts and protein reabsorption droplets stain appropriately. Rare tubular basement membranes show staining with anti-lambda with no staining with anti-kappa. NOTE: One or more of the re agents used in immunofluorescence testing in this case may not have been cleared or approved by the U.S. Food and Drug Administration (FDA). The FDA has determined that such clearance or approval is not necessary. These tests are used for clinical purposes. They should not be regarded as investigational or for research. These reagents' performance characteristics have been determined by the [facility]. The positive and negative controls worked appropriately. This laboratory is certified under the Clinical Laboratory Improvement Amendments of 1988 (CLIA-88) as qualified to p [facility] high complexity clinical laboratory testing. ELECTRON MICROSCOPY REPORT (EM# [id number]) INTERPRETATION: - Amyloidosis. DESCRIPTION: Portions of this renal biops y are received fixed in Karnovsky solution labelled Jong Copeland and the tissue is processed for electron microscopy. The semi- thin Toluidine blue stained sections of the 2 blocks reveal numeral 2 s imilar appearing glomeruli with mesangial and capillary loop deposition. The 2 front office representative glomeruli are selected for evaluation by electron microscopy. On ultrastructural analysis, the foot processe s are 60-75% effaced. There is patchy villous transformation of the podocyte cytoplasm. The glomerular capillary basement membranes (GBM) segmentally contain randomly arrange d small fibrils which extend from the subendothelium through the basement membrane to the subepithelial region. The GBMC without deposits are usual thickness and otherwise unremarkable. Similar fibril d eposits are present in the m esangial region with narrowing of the capillary lumens as well as in Locke's basement membrane and in the interstitium.. Fibrils measure 10.00 nanometers in diameter (range 8.13 nm to 12.72 nm). The tubules have increased cytop lasmic vacuoles. Note: The electron microscop y was performed at the [facility], Room 203 [facility], [address] [place] [address] ([id number] [facility], CLIA [id number], CAP [id number]). Clinical History Nephrotic syndrome; clinical diagnosis code: N0 4.9 [facility] Gross Description A. [facility] Received fresh on saline soa ked gauze labelled with proper patient identification (initials B, T) and kidney are 4 [place], cylindrical tissues (1.6 cm to 1.7 cm in length, and each 0.1 cm in diameter). T CENT ER he specimen is examined with a macroscope and divided as follows: 1 piece is placed in Jakob's fixative for full immunofluorescence, 1 piece is placed in Karnovsky's fixative for electron microscopy, a LABORATORY nd the remaining 4 pieces of tissue are placed in Gendre's fixative and entirely submitted in A1-A2 for light microscopy. SERVICES B. One piece of tissue is submitted to histology for full immunofluorescence. ELVIS HARRIS(ASC) 08/18/2021 14:48 Performing Lab [facility] Scanned Images [facility] Specimen Tissue - Entire kidney (body structure) Tissue specimen (specimen) - Entire kidn ey (body structure) Performing Organization Address City/State/ZIP Code Phon e Number [facility] [address] [place] [address] SERVICES PROTIME (08/18/2021 9:42 EDT) Pathologist Sig nature I.N.R. 1.1 0.9 - 1.1 Ratio [facility] Pro Time 12.5 10.4 - 12.6 secs [facility] Specimen Blood - Venous blood (substance) Narrative [facility] - 08/18/2021 10:00 EDT Moderate Intensity Coumadin INR = 2.0-3.0 Adjustments in anticoagulant therapy dos e should be based on the INR and NOT on the Protime. Performing Organization Address City/State/ZIP Code Phon e Number [facility] [address] [place] [address] SERVICES documented in this encounter Visit Diagnoses Diagnosis Nephrotic syndrome Nephrotic syndrome with unspecified path ological lesion in kidney documented in this encounter Administered Medications Inactive Administered Medications - up to 3 most recent administrations Medication Order MAR Action Action Date Dose Rate Site fentaNYL citrate (PF) injection Given 08/18/2021 12:00 EDT 75 mc g 25-250 mcg 25-250 mcg, intravenous, ONCE PRN, 1 dose, Starting on Mon08/18/21 at 1111, Until Mon08/18/21 at 1200, Other, Radiology Procedure, Routine, Preprocedure midazolam (MDV) (VERSED) injection 0.5-1 0 mg Given 08/18/2021 12:00 EDT 1.5 mg 0.5-10 mg, intravenous, ONCE PRN, 1 dose, Starting on Mon08/18/21 at 1111, Until Mon08/18/21 at 1200, Sedation, Routine, Preprocedure sodium chloride 0.9 % (NS) infusion New Bag 08/18/2021 9:42 EDT 50 mL/hr 50 mL/hr at 50 mL/hr, 50 mL/hr, intravenous, CONTINUOUS, Starting on Mon08/18/21 at 0945, Until Mon08/20/21 at 0207, Routine, Preprocedure documented in this encounter Discontinued Medications Medication Sig Discontinue Reason Start Date End Date furosemide (LASIX) 20 mg furosemide 20 mg tablet Therapy completed 08/18/2021 tablet TAKE 1 TABLET BY MOUTH ONCE DAILY IN THE MORNING NEEDED FOR LEG SWELLING hydroCHLOROthiazide Take 25 mg by Patient Stopped 07/24 (HYDRODIURIL) 25 mg tablet mouth daily. Taking lisinopriL (PRINIVIL) 20 mg Take 40 mg by Alternate therapy 08/18/2021 tablet mouth daily. documented as of this encounter Historical Medications This list may reflect changes made after this encounter. Medication Sig Dispensed Refills Start Date End Date NONFORMULARY 2 times daily. HTN Fluid 0 11/04/2021 added in this encounter Orders Medications Ordered That Might Not Have Count Last Ord ered Date First Ordered Date Been Administered acetaminophen (TYLENOL) suppository 650 mg 1 08/18 acetaminophen (TYLENOL) tablet 650 mg 1 08/18/2021 flumazenil (ROMAZICON) injection 0.2 mg 1 08/19/19 lidocaine (PF) 10 mg/mL (1 %) injection 2 1 2021 mg naloxone (NARCAN) injection 0.4 mg 1 08/18/2021 Discharge Count Last Ordered Date First Ordered Date DISCHARGE PATIENT 1 08/18/2021 documented in this encounter Care Teams Bilingual School Psychologist Relationship Specialty Start Date End Date Saray Nicholson ND PCP - General Naturopathic Medicine 07/15/21 09/02/[address] [place] [id number] Esau Serrano PA-C 07/15/21 09/02/[address] [place] [phone] documented as of this encounter
--- OUTSIDE RECORDS SUMMARY | 2022-01-24 10:50 | XMS_ITS | Encounter Summary ---
:1960 Author Organization [facility] Address [address] [place] [address] Care Team Providers Name Role Phone Saray Nicholson JOVAN Primary Care Provider [phone] Esau Serrano PA-C Unavailable Reason for Visit Reason Onset Date Comments Follow-up 08/27/2021 Encounter Details Date Type Department Care Team Description 08/27/2021 Telephone [facility] Chanelle Downing MD Follow-up Nephrology - S Prosp ect [address], Level [address] [place], [place] [phone] [place] [phone] (Wo rk) Social History Tobacco Use [...] Telephone Encounter - Navdeep Downing MD - 08/27/2021 1252 EDT Review of new lab data show the following abnormalities: From 08/17/2021: Urine protein creatinine ratio was 5.96 (<0.2) mg/mg (Nephrotic range proteinuria). Albumin - very low at 1.5 g/dL consistent with severe nephrotic syndrome. Creatinine - 0.9 mg/dL. Serum free light chains from 08/23/2021: [place] free light chains - 7.07 (0.57-2.63) mg/dL [place] free light chains - 2.64 (0.33-1.94) mg/dL We are still awaiting the full report on the kidney biopsy from 08/18/2021 which was sent to [facility] for amyloid typing. PLAN: 1. Phone discussion with the PCP was completed this afternoon and the PCP is to help facilitate a referral to Hematology based on the above results. 2. Worsening hypoalbuminemia and high UPC values are consistent with worsening high-risk nephrotic syndrome (Albumin <2 g/dL). As a result of severe hypoalbuminemia, Warfarin prophylaxis is indicated and the PCP would be advised to start this therapy with target INR of 1.5 - 2.5. His INR was 1.1 on08/18/2021. 3. The PCP was updated on the above plans with a new second phone call, this afternoon. 4. The patient was thereafter called and updated on the above findings and the need for a Hematologyreferral by the PCP and the need to be started on Warfarin anticoagulation by the PCP.. The patient had earlier noted at my initial visit with him that he could not tolerate Furosemide, hydrochlorothiazide, Losartan and Lisinopril. Low salt diet was recommended. He is listed on a statin, Rosuvastatin 40 mg/d. documented in this encounter Plan of Treatment Upcoming Encounters Date Type Specialty Care Team Description 01/28/2022 Phlebotomy Only Hematology and Oncology Blood Doctor, [facility] Hem Onc 01/28/2022 Appointment Infusion Therapy 02/04/2022 Phlebotomy Only Hematology and Oncology Blood Doctor, [facility] Hem Onc 02/04/2022 Office Visit Hematology and Oncology Henrik Marquez MD 111 [facility], [facility], [facility] 2 [place] [address] (Wo rk) 02/04/2022 Appointment Infusion Therapy 02/11/2022 Phlebotomy Only Hematology and Oncology Blood Doctor, [facility] Hem Onc 02/11/2022 Appointment Infusion Therapy 02/18/2022 Phlebotomy Only Hematology and Oncology Blood Doctor, [facility] Hem Onc 02/18/2022 Appointment Infusion Therapy 03/09/2022 Office Visit Hematology and Oncology Dayanna Roman, KODI [address] [facility], [facility] 2 [place] [address] (Wo rk) documented as of this encounter Visit Diagnoses Not on filedocumented in this encounter Care Teams Squirt Machine Operator Relationship Specialty Start Date End Date Saray Nicholson ND PCP - General Naturopathic Medicine 07/15/21 09/02/[address] [place] [address] Esau Serrano PA-C 07/15/21 09/02/21 [address] [place] [address] documented as of this encounter
--- OUTSIDE RECORDS SUMMARY | 2022-01-24 10:50 | XMS_ITS | Encounter Summary ---
:1960 Author Organization [facility] Address [address] [place] [address] Care Team Providers Name Role Phone Saray Nicholson ND Primary Care Provider Esau Serrano PA-C Unavailable Esau Serrano PA-C Primary Care Provider [phone] Saray Nicholson ND Unavailable [phone] Reason for Visit Reason Onset Date Comments Other 09/01/2021 Encounter Details Date Type Department Care Team Description 09/01/2021 Telephone [facility] Chanelle Downing MD Other Nephrology - S Prosp ect [address], Level 2 [place], [place] [address] [place] [phone] (Wo rk) Social History Tobacco Use Types [...] this encounter Miscellaneous Notes Telephone Encounter - MogCarito duarte RN - 09/03/2021 0915 EDT Call to patient to let him know that referral was re done as urgent by dr downing. He would like to change his PCP to Maria Fernanda Serrano, but also note in communication that he sees Saray Alvarez Naturopathic elephone Encounter - Carito Colon RN - 09/02/2021 1702 EDT URgent referral sent in by Dr Downing; elephone Encounter - Carito Colon RN - 09/02/2021 1533 EDT Urgent referral need sent to dr downing to review, elephone Encounter - Shakira Cortes - 09/02/2021 1047 EDT Pt's calling again to see if we can pls change hematology referral to urgent because it was suppose to be Urgent They can't start his treatment until this scan is done .. elephone Encounter - Tonja De La Fuente RN - 09/01/2021 1339 EDT Message routed to Dr. Downing for review and advice. elephone Encounter - Susi Hernandez - 09/01/2021 1335 EDT Patient's referral to hematology marked routine, patient's spouse understood that it was urgent. Please advise? documented in this encounter Plan of Treatment Upcoming Encounters Date Type Specialty Care Team Description 01/28/2022 Phlebotomy Only Hematology and Oncology Blood Doctor, [facility] Hem Onc 01/28/2022 Appointment Infusion Therapy 02/04/2022 Phlebotomy Only Hematology and Oncology Blood Doctor, [facility] Hem Onc 02/04/2022 Office Visit Hematology and Oncology Henrik Marquez MD [address] [phone] (Wo rk) 02/04/2022 Appointment Infusion Therapy 02/11/2022 Phlebotomy Only Hematology and Oncology Blood Doctor, [facility] Hem Onc 02/11/2022 Appointment Infusion Therapy 02/18/2022 Phlebotomy Only Hematology and Oncology Blood Doctor, [facility] Hem Onc 02/18/2022 Appointment Infusion Therapy 03/09/2022 Office Visit Hematology and Oncology Dayanna Roman NP 111 [facility] 2 [place] [address] (Wo rk) documented as of this encounter Visit Diagnoses Not on filedocumented in this encounter Care Teams Field Irrigation Worker Relationship Specialty Start Date End Date Saray Nicholson ND PCP - General Naturopathic Medicine 07/15/21 09/02/[address] [place] [phone] Esau Serrano PA-C PCP - General 09/03/21 [address] [place] [phone] Esau Serrano PA-C 07/15/21 09/02/21 [address] [place] [phone] Saray Nicholson, JOVAN Naturopathic Medicine 09/03/[address] [place] [address] documented as of this encounter
--- OUTSIDE RECORDS SUMMARY | 2022-01-24 10:50 | XMS_ITS | Encounter Summary ---
:1960 Author Organization [facility] Address [address] [place] [address] Care Team Providers Name Role Phone Saray Nicholson ND Primary Care Provider [phone] Esau Serrano PA-C Unavailable Esau Serrano PA-C Primary Care Provider [phone] ElyangelaSaray ND Unavailable [phone] Reason for Visit Reason Onset Date Comments Other 08/09/2021 Encounter Details Date Type Department Care Team Description 08/09/2021 Telephone [facility] Chanelle Downing MD Other Nephrology - S Prosp ect [address] [place] [address], Level 2 [place], [place] [phone] [place] [phone] (Wo rk) Social History Tobacco Use Types Packs/Day Years Used Date Never Assessed Sex Assigned at Date Recorded Male 10/05/2021 16:55 EDT documented as of this encounter Miscellaneous Notes Telephone Encounter - Zo Vasquez RN - 08/12/2021 1125 EDT Spoke with Kimani: He Verbalized understanding; no barriers identified. Kimani has his US on Monday the he will ask them to get the reading back to his PCP and our office. His renal biopsy is the at 09 am. fyi to . Telephone Encounter - Zo Vasquez RN - 08/12/2021 1105 EDT ----- Message from Navdeep Downing MD sent at 08/12/2021 10:21 EDT ----- The patient was called to be given these updates but was not available and a message was left in themail box. He needs to go ahead and complete the kidney biopsy that was long ordered for nephrotic syndrome. The albumin level is higher at 2.5 g/dL and therefore there may not be an immediate indication for Warfarin anticoagulation. Mac elephone Encounter - Tonja De La Fuente RN - 08/10/2021 0950 EDT Message routed to Dr. Downing for review and advice. elephone Encounter - Susi Hernandez - 08/09/2021 1650 EDT Jong's calling - they would like a call back to discuss lab results in regards to necessity of the biopsy Concerned about D-Dimer result? documented in this encounter Plan of Treatment Upcoming Encounters Date Type Specialty Care Team Description 01/28/2022 Phlebotomy Only Hematology and Oncology Blood Doctor, [facility] Hem Onc 01/28/2022 Appointment Infusion Therapy 02/04/2022 Phlebotomy Only Hematology and Oncology Blood Doctor, [facility] Hem Onc 02/04/2022 Office Visit Hematology and Oncology Henrik Marquez MD [address] [place] [address], Level 2 [place] [phone] (Wo rk) 02/04/2022 Appointment Infusion Therapy 02/11/2022 Phlebotomy Only Hematology and Oncology Blood Doctor, [facility] Hem Onc 02/11/2022 Appointment Infusion Therapy 02/18/2022 Phlebotomy Only Hematology and Oncology Blood Doctor, [facility] Hem Onc 02/18/2022 Appointment Infusion Therapy 03/09/2022 Office Visit Hematology and Oncology Dayanna Roman, WOUND CARE RN [address] [facility], [facility] 2 [place] [phone] (Wo rk) documented as of this encounter Visit Diagnoses Not on filedocumented in this encounter Care Teams Rn Icu Relationship Specialty Start Date End Date Saray Nicholson ND PCP - General Naturopathic Medicine 07/15/21 09/02/[address] [place] [phone] Esau Serrano PA-C PCP - General 09/03/21 [address] [place] [address] Esau Serrano PA-C 07/15/21 09/02/21 [address] [place] [address] Saray Nicholson ND Naturopathic Medicine 09/03/21 [address] [place], [place] [address] documented as of this encounter
--- OUTSIDE RECORDS SUMMARY | 2022-01-24 10:50 | XMS_ITS | Encounter Summary ---
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 Reason for Visit Reason Onset Date Comments Follow-up 08/27/2021 Encounter Details Date Type Department Care Team Description 08/27/[address] [facility] Chanelle Downing MD Follow-up Nephrology - S Prosp ect [address] [place] [address] Rehab, Level [address] [phone] (Wo rk) Social History Tobacco Use [...] Encounter - Navdeep Downing MD - 08/27/2021 1407 EDT The pathology report has been concluded on the kidney biopsy - Amyloid AL type. The patient was updated by phone and the same message was discussed with the PCP. He will need full work up/follow up with Hematology - A referral was completed this afternoon in [facility]. documented in this encounter Plan of Treatment Upcoming Encounters Date Type Specialty Care Team Description 01/28/2022 Phlebotomy Only Hematology and Oncology Blood Doctor, [facility] Hem Onc 01/28/2022 Appointment Infusion Therapy 02/04/2022 Phlebotomy Only Hematology and Oncology Blood Doctor, [facility] Hem Onc 02/04/2022 Office Visit Hematology and Oncology Henrik Marquez MD 111 [facility], Level 2 [place] [phone] (Wo rk) 02/04/2022 Appointment Infusion Therapy 02/11/2022 Phlebotomy Only Hematology and Oncology Blood Doctor, [facility] Hem Onc 02/11/2022 Appointment Infusion Therapy 02/18/2022 Phlebotomy Only Hematology and Oncology Blood Doctor, [facility] Hem Onc 02/18/2022 Appointment Infusion Therapy 03/09/2022 Office Visit Hematology and Oncology Dayanna Roman, LACER AND TIER 111 [facility] Level 2 [place] [address] (Wo rk) Scheduled Referrals Name Type Priority Associated Order Schedule Diagnoses AMB CONS/FOLLOW UP Outpatient Routine/Next Nephrotic syndrome Exp ected: HEMATOLOGY Referral Available with pathological 09/03/2021 lesion in kidney (Approximate), Amyloid A Expires: nephropathy (HCC) 08/27/2022 documented as of this encounter Visit Diagnoses Diagnosis Nephrotic syndrome with pathological les ion in kidney - Primary Nephrotic syndrome with unspecified path ological lesion in kidney Amyloid A nephropathy (HCC) documented in this encounter Care Teams Diesel Automotive Technician Relationship Specialty Start Date End Date Saray Nicholson ND PCP - General Naturopathic Medicine 07/15/21 09/02/[address] [place] [address] Esau Serrano PA-C 07/15/21 09/02/21 [address] [place] [address] documented as of this encounter
--- OUTSIDE RECORDS SUMMARY | 2022-01-24 10:51 | XMS_ITS | Encounter Summary ---
:1960 Author Organization [facility] Address [address] [place] [address] Care Team Providers Name Role Phone Brenda Molina MD Primary Care Provider Encounter Details Date Type Department Care Team Description 09/05/2014 Results Only [facility]- César Song MD [phone] [facility] [facility] [address] [place] [phone] (Wo rk) Social History Tobacco Use Types [...] Visit Hematology and Oncology Henrik Marquez MD [address] [place] [address] 2 [place] [phone] (Wo rk) 02/04/2022 Appointment Infusion Therapy 02/11/2022 Phlebotomy Only Hematology and Oncology Blood Doctor, [facility] Hem Onc 02/11/2022 Appointment Infusion Therapy 02/18/2022 Phlebotomy Only Hematology and Oncology Blood Doctor, [facility] Hem Onc 02/18/2022 Appointment Infusion Therapy 03/09/2022 Office Visit Hematology and Oncology Dayanna Roman, LOSS PREVENTION INVESTIGATOR [address] [place] [address] [facility], [facility], Level 2 [place] [phone] (Wo rk) documented as of this encounter Procedures Procedure Name Priority Date/Time Associated Diagnosis Comme nts SURGICAL PATHOLOGY Routine 09/05/2014 8:44 EDT Re sults for this procedure are i n the results section. documented in this encounter Results SURGICAL PATHOLOGY (09/05/2014 8:44 EDT) Pathology Report: SURGICAL PATHOLOGY REPORT [facility] Reports generated via electronic interface contain esperanza ginal data; LABORATORY however they are lacking the format of the original re port. SERVICES Caution should be taken when reading/interpreting unfo rmatted reports. Name: ? JONG ROBERTSON ? Accession #: ? [id number] ? : ? 1960 (Age: 54) ??M ? Collect Date: ? 09/05/2014 ? Location: ? [facility] ? Receive Date: ? 015 ? Provider: CÉSAR MESSINA MD Copy to: RADHA LEAL ? Final Pathologic Diagnosis: SUBCUTANEOUS TISSUE OF FINGERS, LEFT MIDDLE AND SMALL, BIOPSY: - Features consistent with fibromatosis (1). ??See com ment. 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 Comment: The specimen consists of two portions of subcutaneous tissue, both of which have a spindle cell proliferation with features most consistent with fibromatosis. One of the portions of tissue has a pseudocystic struc ture consistent with ganglion cyst. ??Dr. Tushar Lamb has reviewed this case and concurs with the diagnosis. ??(Dr. Kevin)/[facility] Document reviewed and electronically signed by: CLEO KEVIN MD Report ??Date: 09/10/2014 17:01 By the signature above, the attending physician certif ies that he/she has personally conducted a gross and/or microscopic examin ation of the described specimens and rendered or confirmed the above diagnosi s. Specimen(s) Received: Cysts left middle and small finger Clinical History: Painful nodules over PIP joints dorsally of left middl e and small fingers, ? 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 Received in formalin labelled with proper patient identification (initials B, T) and little finger, mi ddle finger cyst left are two unoriented, irregular and partially disrupted hollingsworth-white and focally brown fi brotic like tissue fragments (0.8 x 0.4 x 0.2 cm and 0.9 x 0.7 x 0.3 cm). ??Entirely submitted labeled: BLOCK COSTA 1- ??smaller piece, bisected 2- ??larger piece, trisected Vesta Rossy 09/08/2014 10:14 AM End of Report Specimen Performing Organization Address City/State/ZIP Code Phon e Number [facility] [address] [place] [address] SERVICES documented in this encounter Visit Diagnoses Not on filedocumented in this encounter Care Teams Handstitching Machine Collar Feller Relationship Specialty Start Date End Date Brenda Molina MD PCP - General 12/22/11 09/08/14 [address] [place], [place] [phone] documented as of this encounter
--- OUTSIDE RECORDS SUMMARY | 2022-01-24 10:51 | XMS_ITS | Encounter Summary ---
:1960 Author Organization [facility] Address [address] [place] [address] Care Team Providers Name Role Phone Saray Nicholsoneker JOVAN Primary Care Provider [phone] Esau Serrano PA-C Unavailable Reason for Referral Radiology Services (Routine/Next Available) - Authorization Not Required Specialty Diagnoses / Procedures Referred By Contact Refer red To Contact Diagnoses Nephrotic syndrome Navdeep Downing MD [facility] Procedures IR BIOPSY 1 [facility], [facility] [address] [place] [address] Referral ID Status Reason Start Expiration Visits Visits Date Date Requested Authorized [id number] Authorization Not 07/23/2021 1 1 Required aboratory Services (Routine/Next Available) - New Request Specialty Diagnoses / Procedures Referred By Contact Refer red To Contact Diagnoses Nephrotic syndrome Navdeep Downing MD Procedures ANTI GBM ANTIBODY (EIA) 1 [facility], [facility] [address] [place] [address] Referral ID Status Reason Start Date Expiration Date Visits V isits Requested Authorized [id number] New Request 07/23/2021 1 1 aboratory Services (Routine/Next Available) - New Request Specialty Diagnoses / Procedures Referred By Contact Refer red To Contact Diagnoses Nephrotic syndrome Navdeep Downing MD Procedures ACUTE HEPATITIS PROFILE 1 [facility], [address] [address] Referral ID Status Reason Start Date Expiration Date Visits V isits Requested Authorized [id number] New Request 07/23/2021 1 1 aboratory Services (Routine/Next Available) - New Request Specialty Diagnoses / Procedures Referred By Contact Refer red To Contact Diagnoses Nephrotic syndrome Navdeep Downing MD Procedures PROTEIN/CREATININE RATIO, URINE [address] [place] [phone] Referral ID Status Reason Start Date Expiration Date Visits V isits Requested Authorized [id number] New Request 07/23/2021 12 12 aboratory Services (Routine/Next Available) - New Request Specialty Diagnoses / Procedures Referred By Contact Refer red To Contact Diagnoses Nephrotic syndrome Navdeep Downing MD Procedures HEPATIC FUNCTION PANEL (ALB,ALK PHOS,ALT,AST,DBIL,TOT CRISTÓBAL,TOT PROT) 1 [place] [phone] Referral ID Status Reason Start Date Expiration Date Visits V isits Requested Authorized [id number] New Request 07/23/2021 12 12 aboratory Services (Routine/Next Available) - New Request Specialty Diagnoses / Procedures Referred By Contact Refer red To Contact Diagnoses Nephrotic syndrome Navdeep Downing MD Procedures BASIC METABOLIC PANEL (BMP) [address] [address] Referral ID Status Reason Start Date Expiration Date Visits V isits Requested Authorized [id number] New Request 07/23/2021 12 12 Reason for Visit Reason Comments New Patient Visit New patient referral with ne phrotic syndrome based on labs from 05/12/2021 - creatinine 1.1, albumin 1.8, TSH 4, Free T3 4.3 normal, Free T4 1.01 normal, CRP 1.9 2 and urinalysis showed proteinuria >/=300 and 5-10 RBC. This is a 61-yo with otherwise unknown PMH from the referral notes. Consult (48 Hrs (Urgent)) - Receiving Office to Obtain Authorization Specialty Diagnoses / Procedures Referred By Contact Refer red To Contact Nephrology Diagnoses Nephrotic syndrome with unspecified morphologic changes [facility] JOVAN Alvarez [address] [place] [address] 96 Referral ID Status Reason Start Expiration Visits Visits Date Date Requested Authorized [id number] Receiving Office 1 1 to Obtain Authorization Encounter Details Date Type Department Care Team Description 07/23/2021 Office Visit [facility] Navdeep Downing, Cherri hrotic syndrome Nephrology - S (Primary Dx) [place] [address] Rehab, [place] [address] (Wo rk) Social History Tobacco Use Types Packs/Day Years Used Date Never Assessed Sex Assigned at Date Recorded Male 10/05/2021 16:55 EDT documented as of this encounter Last Filed Vital Signs Vital Sign Reading Time Taken Comments Blood Pressure 108/78 07/23/2021 1000 EDT Pulse 85 07/23/2021 1000 EDT Temperature - - Respiratory Rate - - Oxygen Saturation 95% 07/23/2021 1000 EDT Inhaled Oxygen Concentration - - Weight 113.8 kg (250 lb 14.4 oz) 07/23/2021 1000 EDT Height 182.9 cm (6') 07/23/2021 1000 EDT Body Mass Index 34.03 07/23/2021 1000 EDT documented in this encounter Patient Instructions Patient InstructionsNavdeep Downing MD - 07/23/2021 10:00 EDT Weekly labs ordered. New labs ordered and pending. Plan to get a kidney biopsy - this has been ordered. documented in this encounter Progress Notes Navdeep Downing MD - 07/23/2021 1000 EDT NEW NEPHROLOGY CONSULT OFFICE VISIT NOTE SUBJECTIVE New patient referral with nephrotic syndrome based on labs from 05/12/2021 - creatinine 1.1, albumin 1.8, TSH 4, Free T3 4.3 normal, Free T4 1.01 normal, CRP 1.92 and urinalysis showed proteinuria >/=300 and 5-10 RBC. This is a 61-yo with otherwise unknown PMH from the referral notes 07/23/2021 Chief Complaint Patient presents with ??? New Patient Visit New patient referral with nephrotic syndrome based on labs from 05/12/2021 - creatinine 1.1, albumin1.8, TSH 4, Free T3 4.3 normal, Free T4 1.01 normal, CRP 1.92 and urinalysis showed proteinuria >/=300 and 5-10 RBC. This is a 61-yo with otherwise unknown PMH from the referral notes. HPI As above. The patient was accompanied by the spouse. He reported that he noticed leg/ankle swelling, more on the right where he had a previous ankle injury about 3-4 Months. He described hypertension for over 20years and he had intolerance to various antihypertenisves and reported excruciating cramps and musculoskeletal pain like somebody was ripping his muscles with several of them. He was intolerant of Furosemide, Hydrochlorothiazide, Lisinopril and Losartan. Meanwhile, as a result, he and his PCP had resorted to Homeopathic agents for medical treatment in the past 1-2 months. Except for the ankle swelling, he described no new urinary symptoms. He has some back pain, more on the right than on the left. No hematuria and no darkening of the urine. No shortness of breath. There is no problem list on file for this patient. No past medical history on file. No past surgical history on file. No current outpatient medications on file. No current facility-administered medications for this visit. Not on File Social History Tobacco Use ??? Smoking status: Not on file Substance Use Topics ??? Alcohol use: Not on file ??? Drug use: Not on file No family history on file. REVIEW OF SYSTEMS A ten point ROS was performed and was negative except for pertinent positives in the HPI. BP 108/78 (BP Cuff Location: Right arm, BP Patient Position: Sitting, BP Cuff Sizes: Adult, large) Pulse 85 Ht 182.9 cm (72) Wt (!) 113.8 kg (250 lb 14.4 oz) SpO2 95% BMI 34.03 kg/m?? General appearance: alert, cooperative, no distress, moderately obese Head: Normocephalic, without obvious abnormality, atraumatic Lungs: clear to auscultation bilaterally Heart: no rub Abdomen: Obese; No masses palpable and no tenderness. Mental Status: awake and alert; oriented to person, place, and time Extremities: No edema. Navdeep Downing MD 07/23/2021 13:36 Lab Results Component Value Date TP 5.1 (L) 07/19/2021 No results found for: WBC, RBC, HGB, HCT, MCV, MCH, MCHC, RDWCV, RDWSD, PLT No results found for: WBCU, RBCU, SQUAEPIU, RENEPIU, BACTERIA, CRYST, LABCAST, UACOMMENT, COMUAUCMI No results found for: COLOR, CLARITYU, GLUCOSEU, BILIRUBINUR, KETONES, LABSPEC, BLOODU, PHUR, PROTEINUA, UROBILINOGEN, NITRITE, LEUKESTER ASSESSMENT & PLAN Nephrotic syndrome - New patient referral with nephrotic syndrome based on labs from 05/12/2021 - creatinine 1.1, albumin 1.8, TSH 4, Free T3 4.3 normal, Free T4 1.01 normal, CRP 1.92 and urinalysis showed proteinuria >/=300 and 5-10 RBC. This is a 61-yo with otherwise unknown PMH from the referral notes. It was also noted that the referral notes stated that the patent was seen earlier by Urology. CRP was 1.92 from 05/12/21. A review of lab tests from [facility] from June 2021 show that these tests were all negative or normal - UPEP, SPEP, 24-hr urine protein, TONY, C3 andC4 complements. PT INR was 1.0, ESR was 67, Creatinine was 0.9 mg/dL (was 0.9 in January 2021, glucose 87, albumin was 1.7 g/dl, LDL was 252, 24-hr urine protein was 7.545 gm, creatinine clerance was 150 ml/min, Hb was 17.0 g/dL, urinalysis showed >300 proteinuria, 3-5 RBC and 3-5 WBC, and urine protein creatinine ratio was 6.79 (<0.2) mg/mg. P-ANCA and C-ANCA were negative. Pending tests include acute hepatitis profile and anti-GBM Ab.Thyroid function tests were normal. Renal ultrasound from 07/21/2021 - right kidney 12.5 cm with a small cyst 2.2 cm, left kidney 14.6 cm with a small cyst 1.7 cm. PLA2R, IF was negative from [facility] [place] [facility] (05/25/2021). Hep B S Ab was negative 07/07/21. A1c was 5.4% from 05/12/2021. Hypoalbuminemia - This is not recent and lab data show albumin was 1.7 on 07/19/21, 2.5 on 07/07/2021,1.8 on 05/12/21, 2.0 on 03/08/2021, 2.4 on 02/03/2021. Proteinuria - this is not recent and lab data show proteinuria >3300 from 05/12/21, >300 on 03/25/2021, Erythrocytosis - Hb was 17.7 on 03/08/2021. The relationship with this and this presentation at thistime is uncertain. He has nephrotic syndrome, normal blood pressure and preserved renal function. He cannot tolerate Furosemide, hydrochlorothiazide, Losartan and Lisinopril. Low salt diet was recommended. See below regarding starting a statin. The next step is to plan for a kidney biopsy. For now, we will recommend weekly tests of BMP/LFT/Urine protein creatinine ratio to assess for progression or remission of disease as we wait to get the kidney biopsy completed. The patient had noted that there may be a hindrance with his Health insurancecoverage, or the absence thereof. ??History of hypertension - 20 years. Severe reactions to the BP meds - like muscles being ripped off my bones with cramps abut BP is now controlled. Proteinuria was oted about 4 months., albeit with some leg swelling/ankle swelling. He is normotensive, presently. Homeopathy - Furthermore, the referral note reported prescribing alternative medications/herbals such as Ruavolfia (150 mg+) supplements, 80 drops of Dandelion leaf BID and Liquid Chlorophyll and that the better was feeling better on these medicines. This is very concerning and herbals may be implicated in the nephrotic syndrome. He was advised to stop all homeopathic agents. Morbid obesity - He is recorded to weigh 250 lb and it is unclear if this ahas anything to do with this nephrotic syndrome diagnosis. Hypercholesterolemia - LDL was 252 mg/dL and he needs to start a statin and he will revisit this with the PCP. Acute Hepatitis profile - Pending. Ordered. Anti-GBM Ab - pending. Reordered. RTC after review of the new labs and the kidney biopsy. POCT Urinalysis: Dipstick test - 3+ proteinuria, pH 7. Urine deposit microscopy - Carson: no cellular or other formed elements were evident on examination. documented in this encounter Plan of Treatment Upcoming Encounters Date Type Specialty Care Team Description 01/28/2022 Phlebotomy Only Hematology and Oncology Blood Doctor, [facility] Hem Onc 01/28/2022 Appointment Infusion Therapy 02/04/2022 Phlebotomy Only Hematology and Oncology Blood Doctor, [facility] Hem Onc 02/04/2022 Office Visit Hematology and Oncology Henrik Marquez MD [address] [place] [address], [address] [place] [address] (Wo rk) 02/04/2022 Appointment Infusion Therapy 02/11/2022 Phlebotomy Only Hematology and Oncology Blood Doctor, [facility] Hem Onc 02/11/2022 Appointment Infusion Therapy 02/18/2022 Phlebotomy Only Hematology and Oncology Blood Doctor, [facility] Hem Onc 02/18/2022 Appointment Infusion Therapy 03/09/2022 Office Visit Hematology and Oncology Dayanna Roman, SENIOR WIND [employer]URBINE TECHNICIAN [address] [facility], [facility], [address] [place] [address] (Wo rk) Scheduled Orders Name Type Priority Associated Diagnoses Order S chedule BASIC METABOLIC PANEL Lab Routine Nephrotic syndrome 1 week for 12 Occurrences (BMP) starting 2021 until 07/23/2022, 3 c ompleted HEPATIC FUNCTION PANEL Lab Routine Nephrotic syndrome 1 week for 12 Occurrences (ALB,ALK starting 2021 until PHOS,ALT,AST,DBIL,TOT 2022, 3 completed CRISTÓBAL,TOT PROT) PROTEIN/CREATININE Lab Routine Nephrotic syndrome 1 w zuni for 12 Occurrences RATIO, URINE starting 2021 until 07/23/2022, 3 c ompleted ACUTE HEPATITIS PROFILE Lab Routine Nephrotic syndrom e Expected: 07/26/2021 (Approximate), Expires: 07/23/2022 ANTI GBM ANTIBODY (EIA) Lab Routine Nephrotic syndrom e Expected: 07/26/2021 (Approximate), Expires: 07/23/2022 documented as of this encounter Procedures Procedure Name Priority Date/Time Associated Diagnosis Comme nts POCT URINE Routine 07/23/2021 14:36 Nephrotic syndrome Resul ts for this DIPSTICK, CLINITEK EDT procedure are in the results section. POCT CSN BARCODE Routine 07/23/2021 14:29 Nephrotic syndrome URINE DIPSTICK EDT POCT URINE CLINITEK Routine 07/23/2021 14:29 Nephrotic syndrom e Results for this (DIPSTICK) - DOES EDT procedure are in NOT REFLEX the results section. documented in this encounter Results IR BIOPSY (08/18/2021 11:59 EDT) Anatomical Region Laterality Modality Computed Tomography Specimen Impressions [facility] - 08/18/2021 13:46 EDT Junior Bookkeeper [place] renal core biopsy as described Narrative [facility] - 08/18/2021 13:46 EDT History: Nephrotic syndrome; request for [place] kidney biopsy. TECHNIQUE AND FINDINGS: After explaining [...] ??I personally spent 25 minutes in continuous [id number]-sl-[id number] atten dance with the patient during the administration of the moderate sedation and supervised the moderate sedation services that were monitored by an independent chris barber observer who had no other duties dur ing the procedure. I have personally reviewed the nursing documentation. Sonographic guidance was used to positio n coaxial needle into the inferior pole of the left [place] kidney. All sonographic images were recorded. Core biopsies were obtained and analyzed by pathology ser vice present for biopsy. Finally, all ne edles were removed and hemostasis was achieved at the puncture site with sterile pressure bandage. Patient tolerated procedure well without complication. Procedure Note Cosmo Garcia MD - 08/18/2021 History: Nephrotic syndrome; request for [place] kidney biopsy. TECHNIQUE AND FINDINGS: After explaining [...] I personally spent 25 minutes in continuous otco-xj-afnh attendance with the patient during the administration of the moderate sedation and supervised the moderate sedation services that were monitored by an independent trained observer who had no other duties during the procedure. I have personally reviewed the nursing documentation. Sonographic guidance was used to positio n coaxial needle into the inferior pole of the left [place] kidney. All sonographic images were recorded. Core biopsies were obtained and analyzed by pathology service present for biopsy. Finally, all needles were remove d and hemostasis was achieved at the puncture site with sterile pressure bandage. Patient tolerated procedure well without complication. IMPRESSION Junior Bookkeeper [place] renal core biopsy as described Performing Organization Address City/State/ZIP Code Phon e Number [facility] PROTEIN/CREATININE RATIO, URINE (08/17/2021 11:43 EDT) Pathologist Sig nature Protein, Total, Ur 260.8 [facility] Creatinine, Ur Random, 43.72 [facility] UPRO mg/mg Cr, Ur 5.96 [facility] Specimen Urine - Urine specimen collection, clean catch (procedure) Performing Organization Address [facility] Phon e Number [facility] HEPATIC FUNCTION PANEL (ALB,ALK PHOS,ALT,AST,DBIL,TOT CRISTÓBAL,TOT PROT) (08/17/2021 11:43 EDT) Pathologist Sig nature Albumin, External 1.5 [facility] Total Protein, External 4.7 [facility] Alkaline Phosphatase, 83 [facility] ALT, External 34 [facility] AST, External 32 [facility] Unconjugated Bilirubin [facility] Conjugated Bilirubin, 0.1 [facility] Bilirubin, Total, 0.6 [facility] Specimen Blood - Venous blood (substance) Performing Organization Address [facility] Phon e Number [facility] BASIC METABOLIC PANEL (BMP) (08/17/2021 11:43 EDT) Pathologist Sig [facility] GFR, Calculated, >=60 [facility] Glucose, Serum, 87 [facility] Calculated Calcium, [facility] BUN, External 14 [facility] Calcium, External 8.1 [facility] Chloride, External 104 [facility] CO2, External 30.0 [facility] Creatinine, External 0.9 [facility] Fasting?, External [facility] Potassium, External 4.5 [facility] Sodium, External 138 [facility] Specimen Blood - Venous blood (substance) Performing Organization Address City/[facility]/ZIP [place] [facility] Phon e Number [facility] PROTEIN/CREATININE RATIO, URINE (08/02/2021 11:00 EDT) Pathologist Sig nature Protein, Total, Ur 297.4 [facility] Creatinine, Ur Random, 47.43 [facility] UPRO mg/mg Cr, Ur 6.27 [facility] Specimen Urine - Urine specimen collection, clean catch (procedure) Performing Organization Address City/[facility] Phon e Number [facility] HEPATIC FUNCTION PANEL (ALB,ALK PHOS,ALT,AST,DBIL,TOT CRISTÓBAL,TOT PROT) (08/02/2021 11:00 EDT) Pathologist Sig nature Albumin, External 1.6 [facility] Total Protein, External 4.9 [facility] Alkaline Phosphatase, 75 [facility] ALT, External 32 [facility] AST, External 32 [facility] Unconjugated Bilirubin [facility] Conjugated Bilirubin, 0.1 [facility] Bilirubin, Total, 0.5 [facility] Specimen Blood - Venous blood (substance) Performing Organization Address [facility] Phon e Number [facility] BASIC METABOLIC PANEL (BMP) (08/02/2021 11:00 EDT) Pathologist Sig [facility] GFR, Calculated, >=60 [facility] Glucose, Serum, 98 [facility] Calculated Calcium, [facility] BUN, External 23 [facility] Calcium, External 8.4 [facility] Chloride, External 104 [facility] CO2, External 29.1 [facility] Creatinine, External 0.9 [facility] Fasting?, External [facility] Potassium, External 4.7 [facility] Sodium, External 139 [facility] Specimen Blood - Venous blood (substance) Performing Organization Address City/[facility]/ZIP [place] [facility] Phon e Number [facility] PROTEIN/CREATININE RATIO, URINE (07/27/2021 8:12 EDT) Pathologist Sig [facility] Protein, Total, Ur 529.3 [facility] Creatinine, Ur Random, 95.70 [facility] UPRO mg/mg Cr, Ur 5.53 [facility] Specimen Urine - Urine specimen collection, clean catch (procedure) Performing Organization Address City/[facility]/ZIP Code Phon e Number [facility] HEPATIC FUNCTION PANEL (ALB,ALK PHOS,ALT,AST,DBIL,TOT CRISTÓBAL,TOT PROT) (07/27/2021 8:12 EDT) Pathologist Sig nature Albumin, External 1.6 [facility] Total Protein, External 5.0 [facility] Alkaline Phosphatase, 78 [facility] ALT, External 33 [facility] AST, External 36 [facility] Unconjugated Bilirubin [facility] Conjugated Bilirubin, [facility] Bilirubin, Total, 0.4 [facility] Specimen Blood - Venous blood (substance) Performing Organization Address City/[facility] Phon e Number [facility] BASIC METABOLIC PANEL (BMP) (07/27/2021 8:12 EDT) Pathologist Sig nature GFR, Calculated, >=60 [facility] Glucose, Serum, 102 [facility] Calculated Calcium, [facility] BUN, External 27 [facility] Calcium, External 8.4 [facility] Chloride, External 105 [facility] CO2, External 30.6 [facility] Creatinine, External 1.0 [facility] Fasting?, External [facility] Potassium, External 4.6 [facility] Sodium, External 140 [facility] Specimen Blood - Venous blood (substance) Performing Organization Address City/[facility] Phon e Number [facility] (ABNORMAL) POCT URINE DIPSTICK, CLINITEK (07/23/2021 14:36 EDT) Color, UA Yellow Yellow [facility] Clarity, UA Clear Clear [facility] Glucose, UA Negative Negative mg/dL [facility] Bilirubin, UA Negative Negative [facility] Ketones, UA Negative Negative mg/dL [facility] Specific [place], 1.020 1.001 - 1.035 [facility] Urine [facility] Blood, UA Negative Negative [facility] pH, UA 7.0 <=8 [facility] Protein, UA 3+ (A) Negative mg/dL [facility] Urobilinogen, UA 0.2 0.2 - 1.0 EU/dL [facility] Nitrite, UA Negative Negative [facility] Leuk Esterase Negative Negative [facility] HN LAB COMMENT Test performed at [facility] (CLINITEK, UR) Renal Services [facility] Specimen Urine - Urine specimen collection, clean catch (procedure) Performing Organization Address City/[facility]/[place] Code Phon e Number [facility] [address] [place] [address] SERVICES POCT CSN BARCODE URINE DIPSTICK (07/23/2021 14:29 EDT) Specimen Urine - Urine specimen collection, clean catch (procedure) Performing Organization Address City/[facility] Phon e Number [facility] [address] [place] [address] SERVICES documented in this encounter Visit Diagnoses Diagnosis Nephrotic syndrome - Primary Nephrotic syndrome with unspecified path ological lesion in kidney Nephrotic syndrome Nephrotic syndrome with unspecified path ological lesion in kidney documented in this encounter Care Teams Practice Business Asst Relationship Specialty Start Date End Date Saray Nicholson ND PCP - General Naturopathic Medicine 07/15/21 09/02/[address] [place] [id number] Esau Serrano PA-C 07/15/21 09/02/21 [address] [place] [address] documented as of this encounter
--- OUTSIDE RECORDS SUMMARY | 2022-01-24 10:51 | XMS_ITS | Encounter Summary ---
:1960 Author Organization [facility] Address [address] [place] [address] Care Team Providers Name Role Phone Brenda Molina MD Primary Care Provider Encounter Details Date Type Department Care Team Description 09/05/2014 Hospital Encounter [facility]- Patrica Unknown, Provider, [facility] [address] [facility] [phone] [place] [address] (Work) [phone] Social History Tobacco Use Types Packs/Day Years Used Date Never Assessed Sex Assigned at Date Recorded Male 10/05/2021 16:55 EDT documented as of this encounter Discharge Disposition Disposition Code Departure Means Destination Home or Self Skilled Nursing documented in this encounter Plan of Treatment Upcoming Encounters Date Type Specialty Care Team Description 01/28/2022 Phlebotomy Only Hematology and Oncology Blood Doctor, [facility] 01/28/2022 Appointment Infusion Therapy 02/04/2022 Phlebotomy Only Hematology and Oncology Blood Doctor, [facility] Hem Onc 02/04/2022 Office Visit Hematology and Oncology Henrik Marquez MD 111 [facility] Level 2 [place] [address] (Wo rk) 02/04/2022 Appointment Infusion Therapy 02/11/2022 Phlebotomy Only Hematology and Oncology Blood Doctor, [facility] Hem Onc 02/11/2022 Appointment Infusion Therapy 02/18/2022 Phlebotomy Only Hematology and Oncology Blood Doctor, [facility] On[facility] 02/18/2022 Appointment Infusion Therapy 03/09/2022 Office Visit Hematology and Oncology Dayanna Roman, CLINICAL SUPPORT SPECIALIST [address] [facility], Level [address] [place] [phone] (Wo rk) documented as of this encounter Visit Diagnoses Not on filedocumented in this encounter Care Teams Blueprint Machine Operator Relationship Specialty Start Date End Date Brenda Molina MD PCP - General 12/22/11 09/08/[address] [place] [phone] documented as of this encounter
--- OUTSIDE RECORDS SUMMARY | 2022-01-24 10:51 | XMS_ITS | Encounter Summary ---
:1960 Author Organization [facility] Address [address] [place] [address] Care Team Providers Name Role Phone Saray Nicholson JOVAN Primary Care Provider [phone] Esau Serrano PA-C Unavailable Reason for Referral Radiology Services (Urgent) - Specialty Report Received Specialty Diagnoses / Procedures Referred By Contact Refer red To Contact Diagnoses Nephrotic syndrome Navdeep Downing MD Procedures US RENAL/BLADDER COMPLETE 1 [facility] 2 [place] [address] Referral ID Status Reason Start Date Expiration Date Visits V isits Requested Authorized [id number] Specialty 07/16/2021 1 1 Report Received aboratory Services (Routine/Next Available) - New Request Specialty Diagnoses / Procedures Referred By Contact Refer red To Contact Diagnoses Nephrotic syndrome Navdeep Downing MD Procedures SPEP, INCLUDES QUANTITATION OF MONOCLONAL SPIKE 1 [facility], [facility] 2 [place] [address] Referral ID Status Reason Start Date Expiration Date Visits V isits Requested Authorized [id number] New Request 07/16/2021 1 1 aboratory Services (Routine/Next Available) - New Request Specialty Diagnoses / Procedures Referred By Contact Refer red To Contact Diagnoses Nephrotic syndrome Navdeep Downing MD Procedures PROTEIN, TOTAL, 24 HR, URINE [address] [address] Referral ID Status Reason Start Date Expiration Date Visits V isits Requested Authorized [id number] New Request 07/16/2021 1 1 aboratory Services (Routine/Next Available) - New Request Specialty Diagnoses / Procedures Referred By Contact Refer red To Contact Diagnoses Nephrotic syndrome Navdeep Downing MD Procedures COMPLETE BLOOD COUNT 1 [place] [phone] Referral ID Status Reason Start Date Expiration Date Visits V isits Requested Authorized [id number] New Request 07/16/2021 1 1 aboratory Services (Routine/Next Available) - New Request Specialty Diagnoses / Procedures Referred By Contact Refer red To Contact Diagnoses Nephrotic syndrome Navdeep Downing MD Procedures PROTIME [address] [address] Referral ID Status Reason Start Date Expiration Date Visits V isits Requested Authorized [id number] New Request 07/16/2021 1 1 aboratory Services (Routine/Next Available) - New Request Specialty Diagnoses / Procedures Referred By Contact Refer red To Contact Diagnoses Nephrotic syndrome Navdeep Downing MD Procedures URINE CHEMICAL (DIP) & SEDIMENT (MICRO) WITH REFLEX TO CULTURE [address] [address] Referral ID Status Reason Start Date Expiration Date Visits V isits Requested Authorized [id number] New Request 07/16/2021 1 1 aboratory Services (Routine/Next Available) - New Request Specialty Diagnoses / Procedures Referred By Contact Refer red To Contact Diagnoses Navdeep Cobos MD Procedures PROTEIN/CREATININE RATIO, URINE [address] [address] Referral ID Status Reason Start Date Expiration Date Visits V isits Requested Authorized [id number] New Request 07/16/2021 1 1 aboratory Services (Routine/Next Available) - New Request Specialty Diagnoses / Procedures Referred By Contact Refer red To Contact Diagnoses Navdeep Cobos MD Procedures HEPATIC FUNCTION PANEL (ALB,ALK PHOS,ALT,AST,DBIL,TOT CRISTÓBAL,TOT PROT) [address] [address] Referral ID Status Reason Start Date Expiration Date Visits V isits Requested Authorized [id number] New Request 07/16/2021 1 1 aboratory Services (Routine/Next Available) - New Request Specialty Diagnoses / Procedures Referred By Contact Refer red To Contact Diagnoses Navdeep Cobos MD Procedures C4 COMPLEMENT [address] [address] Referral ID Status Reason Start Date Expiration Date Visits V isits Requested Authorized [id number] New Request 07/16/2021 1 1 aboratory Services (Routine/Next Available) - New Request Specialty Diagnoses / Procedures Referred By Contact Refer red To Contact Diagnoses Navdeep Cobos MD Procedures C3 COMPLEMENT [address] [address] Referral ID Status Reason Start Date Expiration Date Visits V isits Requested Authorized [id number] New Request 07/16/2021 1 1 aboratory Services (Routine/Next Available) - New Request Specialty Diagnoses / Procedures Referred By Contact Refer red To Contact Diagnoses Nephrotic syndrome Navdeep Downing MD Procedures ANTI NUCLEAR AB (TONY), IFA 1 [facility], [facility] 2 [place] [address] Referral ID Status Reason Start Date Expiration Date Visits V isits Requested Authorized [id number] New Request 07/16/2021 1 1 aboratory Services (Routine/Next Available) - New Request Specialty Diagnoses / Procedures Referred By Contact Refer red To Contact Diagnoses Nephrotic syndrome Navdeep Downing MD Procedures BASIC METABOLIC PANEL (BMP) [address] [address] Referral ID Status Reason Start Date Expiration Date Visits V isits Requested Authorized [id number] New Request 07/16/2021 6 6 Reason for Visit Reason Onset Date Comments Follow-up 07/16/2021 Encounter Details Date Type Department Care Team Description 07/16/2021 Telephone [facility] Chanelle Downing MD Follow-up Nephrology - S Prosp ect [address] [address] (Wo rk) Social History Tobacco Use Types Packs/Day Years Used Date Never Assessed Sex Assigned at Date Recorded Male 10/05/2021 16:55 EDT documented as of this encounter Miscellaneous Notes Telephone Encounter - Navdeep Downing MD - 07/16/2021 1634 EDT New patient referral with nephrotic syndrome based [...] the patent was seen earlier by Urology. Furthermore, the referral note reported prescribing alternative medications/herbals such as Ruavolfia (150 mg+) supplements, 80 drops of Dandelion leaf BID and Liquid Chlorophyll and that the better was feeling better on these medicines. This is very concerning and herbals may be implicated in the nephrotic syndrome. PLAN: To get BMP, Urinalysis, urine protein creatinine ratio, UPEP, SPEP, 24-hr urine protein, TONY, C3 andC4 complements, acute Hepatitis profile, PT/PTT and LFT MARCUS. These tests have been ordered. Renal sonogram also ordered. Appointment with Nephrology once these tests are carried out MARCUS - next week. He can be seen in Urgent Clinic next 07/23/2021. documented in this encounter Plan of Treatment Upcoming Encounters Date Type Specialty Care Team Description 01/28/2022 Phlebotomy Only Hematology and Oncology Blood Doctor, [facility] Hem Onc 01/28/2022 Appointment Infusion Therapy 02/04/2022 Phlebotomy Only Hematology and Oncology Blood Doctor, [facility] Hem Onc 02/04/2022 Office Visit Hematology and Oncology Henrik Marquez MD [address] [place] [address], [facility] 2 [place] [address] (Wo rk) 02/04/2022 Appointment Infusion Therapy 02/11/2022 Phlebotomy Only Hematology and Oncology Blood Doctor, [facility] Hem Onc 02/11/2022 Appointment Infusion Therapy 02/18/2022 Phlebotomy Only Hematology and Oncology Blood Doctor, [facility] Hem Onc 02/18/2022 Appointment Infusion Therapy 03/09/2022 Office Visit Hematology and Oncology Dayanna Roman, LUMBER LOADER [address] [place] [facility], [facility], Level 2 [place] [phone] (Wo rk) Scheduled Orders Name Type Priority Associated Diagnoses Order S chedule ANTI NUCLEAR AB (TONY), IFA Lab Routine Nephrotic Synd deanna Expected: 07/17/2021 (Approximate), Expires: 2022 C3 COMPLEMENT Lab Routine Nephrotic Syndrome Expected : 07/17/2021 (Approximate), Expires: 2022 C4 COMPLEMENT Lab Routine Nephrotic Syndrome Expected : 07/17/2021 (Approximate), Expires: 2022 URINE CHEMICAL (DIP) & Lab Routine Nephrotic syndrome Ordered: 07/16/2021 SEDIMENT (MICRO) WITH REFLEX TO CULTURE PROTIME Lab Routine Nephrotic syndrome Expected: 07/17/2021 (Approximate), Expires: 2022 COMPLETE BLOOD COUNT Lab Routine Nephrotic syndrome E xpected: 07/17/2021 (Approximate), Expires: 2022 PROTEIN, TOTAL, 24 HR, Lab Routine Nephrotic syndrome Expected: 07/23/2021 URINE (Approximate), Expires: 2022 SPEP, INCLUDES Lab Routine Nephrotic syndrome Expecte d: 07/23/2021 QUANTITATION OF MONOCLONAL ( Approximate), SPIKE Expires: 2022 US RENAL/BLADDER COMPLETE Imaging Routine Nephrotic syndr ome Expected: 07/23/2021 (Approximate), Expires: 2022 documented as of this encounter Results PROTEIN/CREATININE RATIO, URINE (08/09/2021 7:10 EDT) Pathologist Sig nature Protein, Total, Ur 227.3 [facility] Random, [facility] Creatinine, Ur Random, 40.77 [facility] UPRO mg/mg Cr, Ur 5.57 [facility] Specimen Urine - Urine specimen collection, clean catch (procedure) Performing Organization Address City/State/ZIP Code Phon e Number [facility] HEPATIC FUNCTION PANEL (ALB,ALK PHOS,ALT,AST,DBIL,TOT CRISTÓBAL,TOT PROT) (08/09/2021 7:10 EDT) Pathologist Sig nature Albumin, External 1.5 [facility] Total Protein, External 4.9 [facility] Alkaline Phosphatase, 84 [facility] ALT, External 35 [facility] AST, External 34 [facility] Unconjugated Bilirubin [facility] Conjugated Bilirubin, 0.1 [facility] Bilirubin, Total, 0.5 [facility] Specimen Blood - Venous blood (substance) Performing Organization Address City/[facility]/ZIP Code Phon e Number [facility] BASIC METABOLIC PANEL (BMP) (08/09/2021 7:10 EDT) Pathologist Sig nature GFR, Calculated, >=60 [facility] Glucose, Serum, 108 [facility] Calculated Calcium, [facility] BUN, External 21 [facility] Calcium, External 8.2 [facility] Chloride, External 104 [facility] CO2, External 30.4 [facility] Creatinine, External 1.0 [facility] Fasting?, External [facility] Potassium, External 4.4 [facility] Sodium, External 139 [facility] Specimen Blood - Venous blood (substance) Performing Organization Address City/[facility] Phon e Number [facility] documented in this encounter Visit Diagnoses Diagnosis Nephrotic syndrome - Primary Nephrotic syndrome with unspecified path ological lesion in kidney documented in this encounter Care Teams Mangle Catcher Relationship Specialty Start Date End Date Saray Nicholson ND PCP - General Naturopathic Medicine 07/15/21 09/02/[address] [place] [phone] Esau Serrano PA-C 07/15/21 09/02/21 [address] [place] [address] documented as of this encounter
--- OUTSIDE RECORDS SUMMARY | 2022-01-24 10:51 | XMS_ITS | Encounter Summary ---
:1960 Author Organization [facility] Address [address] [place] [address] Care Team Providers Name Role Phone María Molina MD Primary Care Provider Encounter Details Date Type Department Care Team Description 01/21/2013 Results Only [facility] María Molina MD [phone] [address] [place], [place] [address] (Wo rk) Social History Tobacco Use Types [...] MD 111 [facility], Level [address] [place] [phone] (Wo rk) 02/04/2022 Appointment Infusion Therapy 02/11/2022 Phlebotomy Only Hematology and Oncology Blood Doctor, [facility] Hem Onc 02/11/2022 Appointment Infusion Therapy 02/18/2022 Phlebotomy Only Hematology and Oncology Blood Doctor, [facility] Onc 02/18/2022 Appointment Infusion Therapy 03/09/2022 Office Visit Hematology and Oncology Dayanna Roman, DIRECTOR SALES [address] [facility], [address] [place] [phone] (Wo rk) documented as of this encounter Procedures Procedure Name Priority Date/Time Associated Diagnosis Comme nts SURGICAL PATHOLOGY Routine 01/21/2013 21:04 Resul ts for this EDT procedure are i n the results section. documented in this encounter Results SURGICAL PATHOLOGY (01/21/2013 21:04 EDT) Pathology Report: SURGICAL PATHOLOGY REPORT [facility] Reports generated via electronic interface contain esperanza ginal data; LAB however they are lacking the format of the original re port. Caution should be taken when reading/interpreting unfo rmatted reports. Name: ? JONG ROBERTSON ? Accession #: ? [id number] ? : ? 1960 (Age: 52) ??M ? Collect Date: ? 01/21/2013 ? Location: ? [facility] ? Receive Date: ? 013 ? Provider: MARÍA MOLINA MD Copy to: ? Final Pathologic Diagnosis: SKIN OF CHEEK,PUNCH BIPSY: - Sebaceous hyperplasia. Microscopic Description: The epidermis is relatively unremarkable except for a diminished rete ridge pattern. ??There is a dilated follicular infundibulum. ??The follicle is associated with an increased number of sebaceous gland s, some of which are located immediately beneath the epidermis. ??The sebaceous glands have a normal morphology with mature sebocytes. ??(Dr. Kevin)/[facility] Document reviewed and electronically signed by: CLEO KEVIN MD Report ??Date: 01/23/2013 14:45 By the signature above, the attending physician certif ies that he/she has personally conducted a gross and/or microscopic examin ation of the described specimens and rendered or confirmed the above diagnosi s. Specimen(s) Received: Cheek, 6.0 mm punch biopsy Clinical History: Excision of lesion in entirety; 4.0 mm l esion, raised pearly edges c/w BCC; pt with h/o facial BCC Gross Description: Received in formalin gladis d with proper patient identification (initials B, T) and cheek is a punch biopsy of hollingsworth-white skin (0.7 x 0.5 cm in diameter and 0.3 cm in thickness). ??There is a sligh tly eccentric, ovoid, hollingsworth-white smooth papule measuring 0.3 x 0.2 x less than 0.1 cm. ? ?Bisected and submitted in 1Tanya Lozada 01/23/2013 08:17 AM End of Report Specimen Performing Organization Address City/State/ZIP Code Phon e Number [facility] [address] [place] [address] [facility] [address] [place] [address] documented in this encounter Visit Diagnoses Not on filedocumented in this encounter Care Teams Stock Trader Relationship Specialty Start Date End Date María Molina MD PCP - General 12/22/11 09/08/14 [address] [place], [place] [phone] documented as of this encounter
--- OUTSIDE RECORDS SUMMARY | 2022-01-24 10:51 | XMS_ITS | Encounter Summary ---
:1960 Author Organization [facility] Address [address] [place] [address] Care Team Providers Name Role Phone Unavailable Primary Care Provider Unavailable Encounter Details Date Type Department Care Team Description 10/16/2006 Results Only [facility] - María Mcmillan MD [facility] 111 [facility] [address] [place] [address] [place] [address] (Wo rk) Social History Tobacco Use Types Packs/Day Years Used Date Never Assessed Sex Assigned at Date Recorded Male 10/05/2021 16:55 EDT documented as of this encounter Plan of Treatment Upcoming Encounters Date Type Specialty Care Team Description 01/28/2022 Phlebotomy Only Hematology and Oncology Blood Doctor, [facility] Hem Onc 01/28/2022 Appointment Infusion Therapy 02/04/2022 Phlebotomy Only Hematology and Oncology Blood Doctor, [facility] Hem Onc 02/04/2022 Office Visit Hematology and Oncology Henrik Marquez MD [address] [place] [address], [address] [place] [phone] (Wo rk) 02/04/2022 Appointment Infusion Therapy 02/11/2022 Phlebotomy Only Hematology and Oncology Blood Doctor, [facility] Hem Onc 02/11/2022 Appointment Infusion Therapy 02/18/2022 Phlebotomy Only Hematology and Oncology Blood Doctor, [facility] Hem Onc 02/18/2022 Appointment Infusion Therapy 03/09/2022 Office Visit Hematology and Oncology Dayanna Roman NP [address] [place], [place] [address], Level [address] [place] [phone] (Wo rk) documented as of this encounter Procedures Procedure Name Priority Date/Time Associated Diagnosis Comme nts CYTOPATHOLOGY Routine 10/16/2006 0:00 EDT Results for this procedure are i n the results section . documented in this encounter Results CYTOPATHOLOGY (10/16/2006 0:00 EDT) Pathology Report: CYTOPATHOLOGY REPORT [facility] Reports generated via electronic interface contain esperanza ginal data; however they are lacking the format of the original re port. Caution should be taken when reading/interpreting unfo rmatted reports. Name: ? JONG ROBERTSON ? Accession #: ? [id number] : ? 1960 (Age: 46) ??M ?Collect Date: ? 09/23 Location: ? [facility] ? Receive Date : ? 10/17/2006 Provider: ? MARÍA ALICIA MD Copy to: ? CYTOLOGIC DIAGNOSIS: ? Knee effusion, right, cytologic evaluation: 1. ?No malignant cells present. 2. ? Rare degenerated in flammatory cells including histiocytes present. ??See comment. ? COMMENT: ? The specimen shows proteinaceous material as we ll as rare degenerated leukocytes. ??(Dr. English)/[facility] Document reviewed and electronically signed by: ? BEATRIZ ENGLISH MD Report Date: ??10/19/2006 07:23 By the signature above, the attending physician certif ies that he/she has personally conducted a gross and/or microscopic examin ation of the described specimens and rendered or confirmed the above diagnosi s. Specimen Type: ? Miscellaneous Fluid, Knee Fluid Clinical History: ? Chronic knee effusion x3 months mostly prepatel lar. ? Gross Description: ? 1 tube of Cytolyt was received and processed by selective cellular enhancement technique. ? End of Report Specimen Performing Organization Address City/State/ZIP Code Phon e Number [facility] [address] [place] [address] SERVICES [facility] [address] [place] [address] documented in this encounter Visit Diagnoses Not on filedocumented in this encounter
--- OUTSIDE RECORDS SUMMARY | 2022-01-24 10:51 | XMS_ITS | Encounter Summary ---
:1960 Author Organization [facility] Address [address] [place] [address] Care Team Providers Name Role Phone Esau Serrano PA-C Primary Care Provider [phone] Encounter Details Date Type Department Care Team Description 01/27/2017 Hospital Encounter [facility]- Patrica Unknown, Provider, [facility] [address] [facility] [phone] [place] [address] (Work) [phone] Social History Tobacco Use Types Packs/Day Years Used Date Never Assessed Sex Assigned at Date Recorded Male 10/05/2021 16:55 EDT documented as of this encounter Discharge Disposition Disposition Code Departure Means Destination Home or Self [place] documented in this encounter Plan of Treatment Upcoming Encounters Date Type Specialty Care Team Description 01/28/2022 Phlebotomy Only Hematology and Oncology Blood Doctor, [facility] Hem Onc 01/28/2022 Appointment Infusion Therapy 02/04/2022 Phlebotomy Only Hematology and Oncology Blood Doctor, [facility] Hem Onc 02/04/2022 Office Visit Hematology and Oncology Henrik Marquez MD 111 [facility], [address] [place] [address] (Wo rk) 02/04/2022 Appointment Infusion Therapy 02/11/2022 Phlebotomy Only Hematology and Oncology Blood Doctor, [facility] Hem Onc 02/11/2022 Appointment Infusion Therapy 02/18/2022 Phlebotomy Only Hematology and Oncology Blood Doctor, [facility] Hem Onc 02/18/2022 Appointment Infusion Therapy 03/09/2022 Office Visit Hematology and Oncology Dayanna Roman, BOILER HOUSE MECHANIC [address] [place] [facility], [address] [place] [address] (Wo rk) documented as of this encounter Visit Diagnoses Not on filedocumented in this encounter Care Teams Head Field Hockey Coach Relationship Specialty Start Date End Date Esau Serrano PA-C PCP - General 09/09/14 07/14/[address] [place] [phone] documented as of this encounter
--- OUTSIDE RECORDS SUMMARY | 2022-01-24 10:51 | XMS_ITS | Encounter Summary ---
:1960 Author Organization [facility] Address [address] [place] [address] Care Team Providers Name Role Phone Esau Serrano PA-C Primary Care Provider [phone] Encounter Details Date Type Department Care Team Description 01/26/2017 Results Only [facility]- Kyle Bonds MD [phone] [place] [address] [place] [address] (Wo rk) Social History Tobacco Use Types Packs/Day Years Used Date Never Assessed Sex Assigned at Date Recorded Male 10/05/2021 16:55 EDT documented as of this encounter Plan of Treatment Upcoming Encounters Date Type Specialty Care Team Description 01/28/2022 Phlebotomy Only Hematology and Oncology Blood Doctor, [facility] Hem Onc 01/28/2022 Appointment Infusion Therapy 02/04/2022 Phlebotomy Only Hematology and Oncology Blood Doctor, [facility] Hem Onc 02/04/2022 Office Visit Hematology and Oncology Henrik Marquez MD [address] [place] [address] 2 [place] [address] (Wo rk) 02/04/2022 Appointment Infusion Therapy 02/11/2022 Phlebotomy Only Hematology and Oncology Blood Doctor, [facility] Hem Onc 02/11/2022 Appointment Infusion Therapy 02/18/2022 Phlebotomy Only Hematology and Oncology Blood Doctor, [facility] Hem Onc 02/18/2022 Appointment Infusion Therapy 03/09/2022 Office Visit Hematology and Oncology Dayanna Roman, APPLICATIONS PROGRAMMER [address] [place] [address] [facility], [facility], Level 2 [place] [address] (Wo rk) documented as of this encounter Procedures Procedure Name Priority Date/Time Associated Diagnosis Comme nts SURGICAL PATHOLOGY Routine 01/26/2017 18:10 Resul ts for this EDT procedure are i n the results section. documented in this encounter Results SURGICAL PATHOLOGY (01/26/2017 18:10 EDT) Pathology Report: SURGICAL PATHOLOGY REPORT [facility] Reports generated via electronic interface contain esperanza ginal data; LABORATORY however they are lacking the format of the original re port. SERVICES Caution should be taken when reading/interpreting unfo rmatted reports. Name: ? JONG ROBERTSON ? Accession #: ? [id number] ? : ? 1960 (Age: [age]) ??M ? Collect Date: ? 01/26/2017 ? Location: ? [facility] ? Receive Date: ? 01/28/20 17 ? Provider: KYLE JOSÉ MD Copy to: PEDRO JACKSON [facility] ? Final Pathologic Diagnosis: SKIN OF NOSE, LEFT DORSAL, EXCISION: - Basal cell carcinoma, nodular type, with infiltrativ e pattern. - Lesion extends to peripheral margin of excision spe cimen. ??- Lesion measures approximately 0.2 mm to the deep margin. ?? Comment: These results were phoned to Dr. José's office. (Dr. Magana)/[facility] Document reviewed and electronically signed by: LINDSAY MAGANA MD Report ??Date: 01/30/2017 12:28 By the signature above, the attending physician certif ies that he/she has personally conducted a gross and/or microscopic examin ation of the described specimens and rendered or confirmed the above diagnosi s. Specimen(s) Received: Excision L nasal dorsal Clinical History: Skin lesion Gross Description: ? Received in formalin labelled with proper patient identification (initials B, T) and left nasal dorsal skin lesion is an unoriented elliptical excision of hollingsworth-white skin (1.0 x 0.3 cm and is excised to a de pth of 0.2 cm). The margins are inked black. The specimen is serially sect ioned and entirely submitted as 1 central sections and 2 tips, reverse en face. Dr. Marcelo 01/28/2017 10:25 AM End of Report Specimen Performing Organization Address City/State/ZIP Code Phon e Number [facility] [address] [place] [address] SERVICES documented in this encounter Visit Diagnoses Not on filedocumented in this encounter Care Teams Steward/Stewardess Lounge Relationship Specialty Start Date End Date Esau Serrano PA-C PCP - General 09/09/14 07/14/[address] [place] [phone] documented as of this encounter
--- OUTSIDE RECORDS SUMMARY | 2022-01-24 10:51 | XMS_ITS | Encounter Summary ---
:1960 Author Organization [facility] Address [address] [place] [address] Care Team Providers Name Role Phone Saray Nicholson ND Primary Care Provider [phone] Esau Serrano PA-C Unavailable Esau Serrano PA-C Primary Care Provider [phone] Saray Nicholson ND Unavailable [phone] Encounter Details Date Type Department Care Team Description 07/20/2021 Lab Requisition [facility] Outr Resulting Lab, Pathology & Laboratory Provider [facility] [address] [place] [address] Social History Tobacco Use Types Packs/Day Years Used Date Never Assessed Sex Assigned at Date Recorded Male 10/05/2021 16:55 EDT documented as of this encounter Plan of Treatment Upcoming Encounters Date Type Specialty Care Team Description 01/28/2022 Phlebotomy Only Hematology and Oncology Blood Doctor, [facility] Hem Onc 01/28/2022 Appointment Infusion Therapy 02/04/2022 Phlebotomy Only Hematology and Oncology Blood Doctor, [facility] Hem Onc 02/04/2022 Office Visit Hematology and Oncology Henrik Marquez MD 111 [facility] 2 [place] [phone] (Wo rk) 02/04/2022 Appointment Infusion Therapy 02/11/2022 Phlebotomy Only Hematology and Oncology Blood Doctor, [facility] Hem Onc 02/11/2022 Appointment Infusion Therapy 02/18/2022 Phlebotomy Only Hematology and Oncology Blood Doctor, [facility] Hem Onc 02/18/2022 Appointment Infusion Therapy 03/09/2022 Office Visit Hematology and Oncology Daaynna Roman, WIND TURBINE ERECTOR 111 [facility], Level 2 [place] [address] (Wo rk) documented as of this encounter Procedures Procedure Name Priority Date/Time Associated Comments Diagnosis SPEP, INCLUDES Today 07/19/2021 14:57 Results f or this QUANTITATION OF EDT procedure ar e in MONOCLONAL SPIKE the results PERFORMABLE section. IMMUNOTYPING, SERUM Today 07/19/2021 14:57 Resu lts for this EDT procedure are i n the results section. C3 COMPLEMENT Routine 07/19/2021 14:57 Results fo r this EDT procedure are i n the results section. C4 COMPLEMENT Routine 07/19/2021 14:57 Results fo r this EDT procedure are i n the results section. ANTI NUCLEAR AB Routine 07/19/2021 14:57 Results for this (TONY), IFA EDT procedure are i n the results section. SPEP, INCLUDES Routine 07/19/2021 14:57 Results f or this QUANTITATION OF EDT procedure ar e in MONOCLONAL SPIKE the results section. PROTEIN, TOTAL Today 07/19/2021 14:57 EDT documented in this encounter Results IMMUNOTYPING, SERUM (07/19/2021 14:57 EDT) Pathologist [facility] Immunotyping, Current [facility] Serum Interpretation: LABORATORY SERVICES Negative for monoclonal immunoglobulins. Reviewed by: Ruben Wang MD 07/21/2021 1522 Specimen Blood - Venous blood (substance) Performing Organization Address City/State/ZIP Code Phon e Number [facility] [address] [place] [address] SERVICES (ABNORMAL) SPEP, INCLUDES QUANTITATION OF MONOCLONAL SPIKE PERFORMABLE (07/19/2021 14:57 EDT) Pathologist Christy Albumin % 45.6 (L) 55.8 - 66.1 % [facility] LABORATORY SERVICES Alpha-1 % 5.1 (H) 2.9 - 4.9 % [facility] LABORATORY SERVICES Alpha-2 % 26.4 (H) 7.1 - 11.8 % [facility] LABORATORY SERVICES Beta % 14.3 (H) 8.4 - 13.1 % [facility] LABORATORY SERVICES Gamma % 8.6 (L) 11.1 - 18.8 % [facility] LABORATORY SERVICES SPEP Comment Suspicious pattern [facility] seen on protein LABORATORY electrophoresis, SERVICES immunotyping added by reflex.Comment: See scanned/supplementary report. Total Protein 5.1 (L) 6.3 - 8.2 [facility] g/dL LABORATORY SERVICES Specimen Blood - Venous blood (substance) Narrative This result has an attachment that is no t available. Performing Organization Address [facility]/ZIP Code Phon e Number [facility] [address] [place] [address] SERVICES PROTEIN, TOTAL (07/19/2021 14:57 EDT) Specimen Blood - Venous blood (substance) Performing Organization Address [facility]/ZIP [facility] Phon e Number [facility] [address] [place] [address] SERVICES C3 COMPLEMENT (07/19/2021 14:57 EDT) Pathologist Sig nature C3 Complement 125 81 - 157 mg/dL [facility] LABORATORY SERVICES Specimen Blood - Venous blood (substance) Performing Organization Address [facility] Phon e Number [facility] [address] [place] [address] SERVICES C4 COMPLEMENT (07/19/2021 14:57 EDT) Pathologist Sig nature C4 Complement 33 13 - 39 mg/dL [facility] LABORAT ORY SERVICES Specimen Blood - Venous blood (substance) Performing Organization Address [facility]/ZIP [facility] Phon e Number [facility] [address] [place] [address] SERVICES ANTI NUCLEAR AB (TONY), IFA (07/19/2021 14:57 EDT) TONY Interpretation NegativeComment: Negative [facility] No titer LABORATORY SERVICES performed, TONY Screen is negative. Specimen Blood - Venous blood (substance) Narrative [facility] LABORATORY SERVICES - 07/21/2021 15:26 EDT Results were obtained with the INOVA NOV A Lite HEp-2 TONY Kit by indirect immunofluorescence. Performing Organization Address City/[facility]/ZIP Code Phon e Number [facility] [address] [place] [address] SERVICES documented in this encounter Visit Diagnoses Not on filedocumented in this encounter Care Teams Securities Adviser Relationship Specialty Start Date End Date Saray Nicholson ND PCP - General Naturopathic Medicine 07/15/21 09/02/[address] [place] [address] Esau Serrano PA-C PCP - General 09/03/21 [address] [place] [address] Esau Serrano PA-C 07/15/21 09/02/[address] [place] [phone] Saray Nicholson ND Naturopathic Medicine 09/03/[address] [place] [address] documented as of this encounter
--- OUTSIDE RECORDS SUMMARY | 2022-01-24 10:51 | XMS_ITS | Encounter Summary ---
:1960 Author Organization [facility] Address [address] [place] [address] Care Team Providers Name Role Phone Elyangela Saray Antonio ALDANA Primary Care Provider [phone] Esau Serrano PA-C Unavailable Reason for Visit (Routine/Next Available) - Receiving Office to Obtain Authorization Specialty Diagnoses / Procedures Referred By Contact Refer red To Contact Procedures Imaging, External US OUTSIDE IMAGES BODY Referral ID Status Reason Start Expiration Visits Visits Date Date Requested Authorized [id number] Receiving Office 07/21/2021 1 1 to Obtain Authorization Encounter Details Date Type Department Care Team Description 07/21/2021 Hospital Encounter [facility] Secondary Reads [place] Social History Tobacco Use Types Packs/Day Years Used Date Never Assessed Sex Assigned at Date Recorded Male 10/05/2021 16:55 EDT documented as of this encounter Medications at Time of Discharge Medication Sig Dispensed Refills Start Date End Date cholecalciferol, Vitamin Take 2,000 Units by 0 11/04/2021 D3, 50 mcg (2,000 unit) mouth daily. tablet rosuvastatin (CRESTOR) 40 Take 40 mg by mouth 0 0 07/07/2021 11/04/2021 mg tablet daily. documented as of this encounter Discharge [...] Hematology and Oncology Henrik Marquez MD 111 [facility], [facility] 2 [place] [phone] (Wo rk) 02/04/2022 Appointment Infusion Therapy 02/11/2022 Phlebotomy Only Hematology and Oncology Blood Doctor, [facility] Hem Onc 02/11/2022 Appointment Infusion Therapy 02/18/2022 Phlebotomy Only Hematology and Oncology Blood Doctor, [facility] Hem Onc 02/18/2022 Appointment Infusion Therapy 03/09/2022 Office Visit Hematology and Oncology Dayanna Roman NP 111 [facility], [facility] 2 [place] [address] (Isabel rk) documented as of this encounter Procedures Procedure Name Priority Date/Time Associated Diagnosis Comme nts US OUTSIDE IMAGES Routine 07/21/2021 14:54 Result s for this BODY EDT procedure are i n the results section. documented in this encounter Results US OUTSIDE IMAGES BODY (07/21/2021 14:54 EDT) Specimen Narrative 07/21/2021 14:54 EDT This is a non-reportable exam. documented in this encounter Visit Diagnoses Not on filedocumented in this encounter Care Teams Fibrous Wallboard Inspector Relationship Specialty Start Date End Date Saray Nicholson ND PCP - General Naturopathic Medicine 07/15/21 09/02/[address] [place] [address] Esau Serrano PA-C 07/15/21 09/02/21 [address] [place] [address] documented as of this encounter
--- OUTSIDE RECORDS SUMMARY | 2022-01-24 10:51 | XMS_ITS | Encounter Summary ---
:1960 Author Organization [facility] Address [address] [place] [address] Care Team Providers Name Role Phone Saray Nicholson ND Primary Care Provider [phone] Esau Serrano PA-C Unavailable Esau Serrano PA-C Primary Care Provider [phone] Saray Nicholson ND Unavailable [phone] Encounter Details Date Type Department Care Team Description 07/19/2021 Lab Requisition [facility] Outr Resulting Lab, Pathology & Laboratory Provider [facility] [address] [place] [address] Social History Tobacco Use Types [...] Oncology Henrik Marquez MD 111 [facility] 2 [place] [phone] (Wo rk) 02/04/2022 Appointment Infusion Therapy 02/11/2022 Phlebotomy Only Hematology and Oncology Blood Doctor, [facility] Hem Onc 02/11/2022 Appointment Infusion Therapy 02/18/2022 Phlebotomy Only Hematology and Oncology Blood Doctor, [facility] Hem Onc 02/18/2022 Appointment Infusion Therapy 03/09/2022 Office Visit Hematology and Oncology Dayanna Roman, CUSTOMER SUPPORT TECHNICIAN [address] [place] [facility], Level [address] [place] [address] (Wo rk) documented as of this encounter Procedures Procedure Name Priority Date/Time Associated Comments Diagnosis URINE MONOCLONAL Today 07/19/2021 14:30 Results for this PROTEIN STUDY (UPEP EDT procedur e are in WITH IMMUNOTYPING) [facility] ts PERFORMABLE section. PROTEIN, TOTAL, Today 07/19/2021 14:30 RANDOM, URINE EDT URINE MONOCLONAL Routine 07/19/2021 14:30 Results for this PROTEIN STUDY (UPEP EDT procedur e are in WITH IMMUNOTYPING) [facility] ts section. documented in this encounter Results URINE MONOCLONAL PROTEIN STUDY (UPEP WITH IMMUNOTYPING) PERFORMABLE (07/19/2021 14:30 EDT) Albumin, Urine % 68.4 N/A % [facility] SERVICES Globulins, Urine 31.6 N/A % [facility] % CENTER LABORATORY SERVICES UPEP Comment See CommentComment: [facility] Electrophoresis CENTER LABORATORY screening performed; SERVICES Immunotyping to follow. See scanned/supplementary report. Immunotyping, Current [facility] Urine Interpretation: CENTER LABORATORY Negative for free SERVICES monoclonal light chains. Reviewed by: Ruben Wang MD 07/21/2021 1522 Total Protein, 808 See Note [facility] MEDICAL Urine Comment: mg/dL CENTER LABORATORY NOTE: SERVICES Reference range has not been established for total protein concentration in random urine specimens. Specimen Urine - Urine specimen collection, clean catch (procedure) Narrative This result has an attachment that is no t available. Performing Organization Address City/State/ZIP Code Phon e Number [facility] [address] [place] [address] SERVICES PROTEIN, TOTAL, RANDOM, URINE (07/19/2021 14:30 EDT) Specimen Urine - Urine specimen collection, clean catch (procedure) Performing Organization Address City/State/ZIP Code Phon e Number [facility] [address] [place] [address] SERVICES documented in this encounter Visit Diagnoses Not on filedocumented in this encounter Care Teams Flight Nurse Relationship Specialty Start Date End Date Saray Nicholson ND PCP - General Naturopathic Medicine 07/15/21 09/02/[address] [place] [address] Esau Serrano PA-C PCP - General 09/03/21 [address] [place] [address] Esau Serrano PA-C 07/15/21 09/02/[address] [place] [phone] Saray Nicholson ND Naturopathic Medicine 09/03/[address] [place] [address] documented as of this encounter
--- OUTSIDE RECORDS SUMMARY | 2022-01-24 10:51 | XMS_ITS | Encounter Summary ---
:1960 Author Organization [facility] Address [address] [place] [address] Care Team Providers Name Role Phone Elyangela Saray Antonio ALDANA Primary Care Provider [phone] Esau Serrano PA-C Unavailable Encounter Details Date Type Department Care Team Description 07/26/2021 Abstract [facility] Domingo Singh RN Interventional Radiology - [address] [place] [phone] [place] [address] Social History Tobacco Use Types Packs/Day Years [...] and Oncology Henrik Marquez MD 111 [facility], [facility] 2 [place] [phone] (Wo rk) 02/04/2022 Appointment Infusion Therapy 02/11/2022 Phlebotomy Only Hematology and Oncology Blood Doctor, [facility] Hem Onc 02/11/2022 Appointment Infusion Therapy 02/18/2022 Phlebotomy Only Hematology and Oncology Blood Doctor, [facility] Hem Onc 02/18/2022 Appointment Infusion Therapy 03/09/2022 Office Visit Hematology and Oncology Dayanna Roman, WATER SOFTENER SERVICER [address] [place] [address] [facility], [facility], Level [address] [place] [address] (Wo rk) documented as of this encounter Visit Diagnoses Not on filedocumented in this encounter Historical Medications This list may reflect changes made after this encounter. Medication Sig Dispensed Refills Start Date End Date soybean, fermented Nattokinase 0 11/04 (NATTOKINASE) 50 mg capsule 1 cap (100mg) 1xday-to prevent clots rosuvastatin (CRESTOR) 40 Take 40 mg by 0 022 11/04/2021 mg tablet mouth daily. riboflavin, vitamin B2, riboflavin (vitamin B2) 0 11/04/2021 (B-2) 100 mg tablet tablet 1 cap 400mg/day lisinopriL (PRINIVIL) 20 mg Take 40 mg by 0 08/18/2021 tablet mouth daily. hydroCHLOROthiazide Take 25 mg by 0 (HYDRODIURIL) 25 mg tablet mouth daily. furosemide (LASIX) 20 mg furosemide 20 mg tablet 0 08/18/2021 tablet TAKE 1 TABLET BY MOUTH ONCE DAILY IN THE MORNING NEEDED FOR LEG SWELLING cholecalciferol, Vitamin Take 2,000 Units 0 07/1211/04/2021 D3, 50 mcg (2,000 unit) by mouth daily. tablet COQ10, UBIQUINOL, ORAL coQ10 (ubiquinol) 0 11/04/2021 200mg capsule /day added in this encounter Care Teams Link Machine Operator Relationship Specialty Start Date End Date Saray Nicholson ND PCP - General Naturopathic Medicine 07/15/21 09/02/[address] [place] [address] Esau Serrano PA-C 07/15/21 09/02/21 [address] [place] [phone] documented as of this encounter
--- OUTSIDE RECORDS SUMMARY | 2022-01-24 10:51 | XMS_ITS | Encounter Summary ---
:1960 Author Organization [facility] Address [address] [place] [address] Care Team Providers Name Role Phone Esau Serrano PA-C Primary Care Provider [phone] Saray Nicholson ND Primary Care Provider Esau Serrano PA-C Unavailable Esau Serrano PA-C Primary Care Provider [phone] Saray Nicholson ND Unavailable [phone] Encounter Details Date Type Department Care Team Description 05/12/2021 Lab Requisition [facility] Outr Resulting Lab, Pathology & Laboratory Provider [facility] [address] [place] [address] Social History Tobacco Use Types [...] Hematology and Oncology Henrik Marquez MD 111 [facility] 2 [place] [phone] (Wo rk) 02/04/2022 Appointment Infusion Therapy 02/11/2022 Phlebotomy Only Hematology and Oncology Blood Doctor, [facility] Hem Onc 02/11/2022 Appointment Infusion Therapy 02/18/2022 Phlebotomy Only Hematology and Oncology Blood Doctor, [facility] Hem Onc 02/18/2022 Appointment Infusion Therapy 03/09/2022 Office Visit Hematology and Oncology Dayanna Roman, DUSTING AND BRUSHING MACHINE OPERATOR 111 [facility], [facility] 2 [place] [address] (Wo rk) documented as of this encounter Procedures Procedure Name Priority Date/Time Associated Comments Diagnosis HIGH SENSITIVITY Routine 05/12/2021 7:45 Results for this C-REACTIVE PROTEIN EST procedure are in (CARDIOVASCULAR the results DISEASE) section. T3 FREE Routine 05/12/2021 7:45 Results for this EST procedure are i n the results section. HOMOCYSTEINE Routine 05/12/2021 7:45 Results for this EST procedure are i n the results section. documented in this encounter Results T3 FREE (05/12/2021 7:45 EST) Pathologist Sig nature T3, Free 4.3 2.8 - 5.3 pg/mL [facility] LABORA TORY SERVICES Specimen Blood - Venous blood (substance) Performing Organization Address City/[facility]/ZIP Code Phon e Number [facility] [address] [place] [address] SERVICES HOMOCYSTEINE (05/12/2021 7:45 EST) Pathologist Sig nature Homocysteine 10.2 5.0 - 13.9 umol/L [facility] SERVICES Specimen Blood - Venous blood (substance) Narrative [facility]OR[facility]ORY SERVICES - 05/14/2021 10:58 EST Reference range may not apply to non-fas ting samples. ??It is not recommended that EDTA plasma and serum from the same nakita ent be used interchangeably. ??Serum concentrations have been observed to be up to 10% higher than EDTA plasma. Reference range may not apply to serum results. Performing Organization Address City/State/ZIP Code Phon e Number [facility] [address] [place] [phone] SERVICES HIGH SENSITIVITY C-REACTIVE PROTEIN (CARDIOVASCULAR DISEASE) (05/12/2021 7:45 EST) High Sensitivity 1.92 See Note [facility] MEDICAL CRP Comment: mg/L CENTER LABORATORY Reference Range: SERVICES ??Low Risk: ? <1.0 mg/L ??Average Risk: ?? 1.0 - 3.0 mg/L ??High Risk: ?>3.0 mg/L ??Indeterminate*: >10.0 mg/L ??*May be an indication of another source of inflamma tion or infection Specimen Blood - Venous blood (substance) Performing Organization Address City/State/ZIP Code Phon e Number [facility] [address] [place] [address] SERVICES documented in this encounter Visit Diagnoses Not on filedocumented in this encounter Care Teams Junior Financial Analyst Relationship Specialty Start Date End Date Esau Serrano PA-C PCP - General 09/09/14 07/14/21 [address] [place] [phone] Saray Nicholson ND PCP - General Naturopathic Medicine 07/15/21 09/02/[address] [place] [phone] Esau Serrano PA-C PCP - General 09/03/21 [address] [place] [address] Esau Serrano PA-C 07/15/21 09/02/21 [address] [place] [address] Saray Nicholson ND Naturopathic Medicine 09/03/[address] [place] [phone] documented as of this encounter
--- OUTSIDE RECORDS SUMMARY | 2022-01-24 10:51 | XMS_ITS | Encounter Summary ---
:1960 Author Organization [facility] Address [address] [place] [address] Care Team Providers Name Role Phone Esau Serrano PA-C Primary Care Provider [phone] Saray Nicholson ND Primary Care Provider Esau Serrano PA-C Unavailable Esau Serrano PA-C Primary Care Provider [phone] Saray Nicholson ND Unavailable [phone] Encounter Details Date Type Department Care Team Description 03/09/2021 Lab Requisition [facility] Outr Resulting Lab, Pathology & Laboratory Provider [facility] [address] [place] [address] Social History Tobacco Use Types [...] Oncology Henrik Marquez MD [address] [facility] 2 [place] [phone] (Wo rk) 02/04/2022 Appointment Infusion Therapy 02/11/2022 Phlebotomy Only Hematology and Oncology Blood Doctor, [facility] Hem Onc 02/11/2022 Appointment Infusion Therapy 02/18/2022 Phlebotomy Only Hematology and Oncology Blood Doctor, [facility] Hem Onc 02/18/2022 Appointment Infusion Therapy 03/09/2022 Office Visit Hematology and Oncology Dayanna Roman, INSPECTOR OPTICAL INSTRUMENT 111 [facility] venue [facility], [facility], [facility] 2 [place] [address] (Wo rk) documented as of this encounter Procedures Procedure Name Priority Date/Time Associated Diagnosis Comme nts COVID-19 TEST [facility] Today 03/08/2021 10:05 LAB PCR EST COVID-19 TESTING Routine 03/08/2021 10:05 Results for this EST procedure are i n the results section. documented in this encounter Results COVID-19 TEST [facility] LAB PCR (03/08/2021 10:05 EST) Specimen Swab Performing Organization Address City/State/ZIP Code Phon e Number [facility] [address] [place] [address] SERVICES COVID-19 TESTING (03/08/2021 10:05 EST) COVID-19 rt-PCR Negative Negative [facility] Result Comment: [facility] This test has not been FDA c leared or approved. This test has been authorized by FDA under an EUA for use by authorized laboratories. This test has been authorized only for detection of nucleic acid fro SERVICES m 2019-nCoV, not for any oth er viruses or pathogens. This test is only authorized for the duration of the declaration that circumstances exist justifying the authorization of emergency use of in vitro d iagnostic tests for detectio n and/or diagnosis of 2019-nCoV under section 564(b)(1) of Act, 21 U.S.C ?? 360bbb-3(b) (1), unless the authorization is terminated or revoked sooner. Negative results do not prec lude 2019-nCoV infection and should not be used as the sole basis for treatment or other patient management decisions. Negative results must be combined with clinical observa tions, patient history, and epidemiological informatio n. This test was developed and its performance characteristics determined by [facility]. It has not been cleared or approved by the US Food and Drug Administration. FDA does not require this test to go through premarket FDA review. This t est is used for clinical purposes. It should not be regarded as investigational or for research. This laboratory is certified under the Clinical Laboratory Improvement Amendm ents (CLIA) as qualified to perform high complexity clinical laboratory testing. This test is based on the CD C COVID-19 Emergency Use Authorization (EUA) assay, with minor modification as defined by the FDA Performed on the Sportlyzer Pro RT-PCR System. Performing Lab [facility] Lab [facility] SERVICES Specimen Swab Performing Organization Address City/State/ZIP Code Phon e Number [facility] [address] [place] [address] SERVICES documented in this encounter Visit Diagnoses Not on filedocumented in this encounter Care Teams Oscillograph Technician Relationship Specialty Start Date End Date Esau Serrano PA-C PCP - General 09/09/14 07/14/21 [address] [place] [address] Saray Nicholson ND PCP - General Naturopathic Medicine 07/15/21 09/02/[address] [place] [address] [phone] Esau Serrano PA-C PCP - General 09/03/21 [address] [place] [address] Esau Serrano PA-C 07/15/21 09/02/21 [address] [place] [address] Saray Nicholson ND Naturopathic Medicine 09/03/[address] [place] [phone] documented as of this encounter
--- OUTSIDE RECORDS SUMMARY | 2022-01-24 10:51 | XMS_ITS | Encounter Summary ---
:1960 Author Organization [facility] Address [address] [place] [address] Care Team Providers Name Role Phone Saray Nicholson JOVAN Primary Care Provider [phone] Esau Serrano PA-C Unavailable Reason for Visit Reason Onset Date Comments Appointment Related 07/19/2021 Encounter Details Date Type Department Care Team Description 07/19/2021 Telephone [facility] Christiano Vasquez RN Appointment Related Nephrology - S [address] [place] [address] 1 [place] [address] Social History Tobacco Use Types Packs/Day Years Used Date Never Assessed Sex Assigned at Date Recorded Male 10/05/2021 16:55 EDT documented as of this encounter Miscellaneous Notes Telephone Encounter - Zo Vasquez RN - 07/19/2021 0848 EDT Images from the original note were not included. Navdeep Downing MD Sovey, Torey; P Nephrology Nurse Pool To get BMP, Urinalysis, urine protein creatinine ratio, UPEP, SPEP, 24-hr urine protein, TONY, C3 andC4 complements, acute Hepatitis profile, PT/PTT and LFT MARCUS. These tests have been ordered. Renal sonogram also ordered. ?? Appointment with Nephrology once these tests are carried out MARCUS - next week. He can be seen in Urgent Clinic next 07/23/2021. Thank you. Mac documented in this encounter Plan of Treatment Upcoming Encounters Date Type Specialty Care Team Description 01/28/2022 Phlebotomy Only Hematology and Oncology Blood Doctor, [facility] Hem Onc 01/28/2022 Appointment Infusion Therapy 02/04/2022 Phlebotomy Only Hematology and Oncology Blood Doctor, [facility] Hem Onc 02/04/2022 Office Visit Hematology and Oncology Henrik Marquez MD [address] [phone] (Wo rk) 02/04/2022 Appointment Infusion Therapy 02/11/2022 Phlebotomy Only Hematology and Oncology Blood Doctor, [facility] Hem Onc 02/11/2022 Appointment Infusion Therapy 02/18/2022 Phlebotomy Only Hematology and Oncology Blood Doctor, [facility] Hem Onc 02/18/2022 Appointment Infusion Therapy 03/09/2022 Office Visit Hematology and Oncology Dayanna Roman NP [address] [phone] (Wo rk) documented as of this encounter Visit Diagnoses Not on filedocumented in this encounter Care Teams Assistant Activities Director Relationship Specialty Start Date End Date Saray Nicholson ND PCP - General Naturopathic Medicine 07/15/21 09/02/[address] [place] [phone] Esau Serrano PA-C 07/15/21 09/02/21 [address] [place] [address] documented as of this encounter
--- OUTSIDE RECORDS SUMMARY | 2022-01-24 10:51 | XMS_ITS | Encounter Summary ---
:1960 Author Organization [facility] Address [address] [place] [address] Care Team Providers Name Role Phone Saray Nicholson Antonio JOVAN Primary Care Provider [phone] Esau Serrano PA-C Unavailable Encounter Details Date Type Department Care Team Description 07/27/2021 Abstract [facility] Chanelle Downing MD Nephrology - S Prosp ect [address] [place] [address] [address] [place], [place] [address] [place] [phone] (Wo rk) Social History Tobacco Use Types [...] Oncology Henrik Marquez MD 111 [facility] 2 [place] [phone] (Wo rk) 02/04/2022 Appointment Infusion Therapy 02/11/2022 Phlebotomy Only Hematology and Oncology Blood Doctor, [facility] Hem Onc 02/11/2022 Appointment Infusion Therapy 02/18/2022 Phlebotomy Only Hematology and Oncology Blood Doctor, [facility] Hem Onc 02/18/2022 Appointment Infusion Therapy 03/09/2022 Office Visit Hematology and Oncology Dayanna Roman [employer] [address] [place] [address] venue [facility], [facility], Level [address] [place] [phone] (Wo rk) documented as of this encounter Procedures Procedure Name Priority Date/Time Associated Comments Diagnosis COMPLETE BLOOD COUNT Routine 07/19/2021 14:57 Res ults for this EDT procedure are i n the results section. COMPREHENSIVE Routine 07/19/2021 14:57 Results fo r this METABOLIC PANEL (CMP) EDT proced ure are in the results section. PROTEIN/CREATININE Routine 07/19/2021 6:45 Result s for this RATIO, URINE EDT procedure are i n the results section. PROTEIN, TOTAL, 24 HR, Routine 07/19/2021 6:45 Re sults for this URINE EDT procedure are i n the results section. URINE CHEMICAL (DIP) & Routine 07/19/2021 6:45 Re sults for this SEDIMENT (MICRO) EDT procedure a re in WITHOUT REFLEX TO the result s CULTURE section. documented in this encounter Results COMPLETE BLOOD COUNT (07/19/2021 14:57 EDT) Pathologist Sig nature HCT, External 51.3 [facility] MCH, External 29.8 [facility] MCV, External 89.8 [facility] MCHC, External 33.1 [facility] Hemoglobin, External 17.0 [facility] WBC, External 15.32 [facility] RBC, External 5.71 [facility] PLT, External 374 [facility] RDW-CV, External 13.6 [facility] Specimen Blood - Venous blood (substance) Performing Organization Address City/State/ZIP Code Phon e Number [facility] COMPREHENSIVE METABOLIC PANEL (CMP) (07/19/2021 14:57 EDT) Pathologist Sig nature GFR, Calculated, >=60 [facility] Glucose, Serum, 87 [facility] Albumin, External 1.7 [facility] Total Alkaline 96 [facility] Phosphatase, [facility] HOSPITAL L AB ALT, External 29 [facility] AST, External 28 [facility] BUN, External 21 [facility] Calculated Calcium, [facility] Calcium, External 8.3 [facility] Chloride, External 107 [facility] CO2, External 29.9 [facility] Creatinine, External 0.9 [facility] Fasting?, External [facility] Potassium, External 4.7 [facility] Sodium, External 142 [facility] Total Protein, External 5.1 [facility] Bilirubin, Total, 0.2 [facility] Specimen Blood - Venous blood (substance) Performing Organization Address [facility] Phon e Number [facility] URINE CHEMICAL (DIP) & SEDIMENT (MICRO) WITHOUT REFLEX TO CULTURE (07/19/2021 6:45 EDT) Protein UA, External >=300 [facility] pH UA, External 6.5 [facility] UA Comment, External [facility] Specific [place], >=1.030 [facility] Urine, [facility] Squam Epithel, UA, [facility] Glucose UA, External neg [facility] WBC UA, External 3-5 [facility] Blood UA, External trace-inctact [facility] Bilirubin UA, neg [facility] Nitrite UA, External neg [facility] Leukocyte Esterase neg [facility] UA, [facility] Clarity UA, External clear [facility] Renal Epithelial, [facility] Bacteria, External few [facility] Mucus, UA, External neg [facility] Ketones UA, External neg [facility] Casts, External neg [facility] Color UA, External yellow [facility] Crystals, External neg [facility] RBC UA, External 3-5 [facility] Urobilinogen UA, 0.2 [facility] Specimen Urine - Urine specimen collection, clean catch (procedure) Performing Organization Address City/[facility] Phon e Number [facility] PROTEIN/CREATININE RATIO, URINE (07/19/2021 6:45 EDT) Pathologist Sig nature Protein, Total, Ur 536.6 [facility] Random, External [facility] Creatinine, Ur Random, 79.01 [facility] UPRO mg/mg Cr, Ur 6.79 [facility] Specimen Urine - Urine specimen collection, clean catch (procedure) Performing Organization Address City/[facility]/ZIP Code Phon e Number [facility] PROTEIN, TOTAL, 24 HR, URINE (07/19/2021 6:45 EDT) Tot Prot,Ur Random, 391.0 [facility] Total Protein, 24 9,384.0Comment: [facility] Hour Calc, [facility] Total Volume [facility] 2400 ml Specimen Urine - 24 hour urine specimen (specimen ) Performing Organization Address [facility] Phon e Number [facility] documented in this encounter Visit Diagnoses Not on filedocumented in this encounter Care Teams Regional Facilities Manager Relationship Specialty Start Date End Date Saray Nicholson ND PCP - General Naturopathic Medicine 07/15/21 09/02/[address] [place] [phone] Esau Serrano PA-C 07/15/21 09/02/21 [address] [place] [address] documented as of this encounter
--- OUTSIDE RECORDS SUMMARY | 2022-01-24 10:51 | XMS_ITS | Encounter Summary ---
:1960 Author Organization [facility] Address [address] [place] [address] Care Team Providers Name Role Phone Unavailable Primary Care Provider Unavailable Encounter Details Date Type Department Care Team Description 12/19/2011 Results Only [facility]- María Deshpande MD [phone] [address] [place], [place] [address] (Wo rk) Social History Tobacco Use Types Packs/Day Years Used Date Never Assessed Sex Assigned at Date Recorded Male 10/05/2021 16:55 EDT documented as of this encounter Plan of Treatment Upcoming Encounters Date Type Specialty Care Team Description 01/28/2022 Phlebotomy Only Hematology and Oncology Blood Doctor, [facility] Hem Onc 01/28/2022 Appointment Infusion Therapy 02/04/2022 Phlebotomy Only Hematology and Oncology Blood Doctor, [facility] Hem Onc 02/04/2022 Office Visit Hematology and Oncology Henrik Marquez MD [address] [phone] (Wo rk) 02/04/2022 Appointment Infusion Therapy 02/11/2022 Phlebotomy Only Hematology and Oncology Blood Doctor, [facility] Hem Onc 02/11/2022 Appointment Infusion Therapy 02/18/2022 Phlebotomy Only Hematology and Oncology Blood Doctor, [facility] Hem Onc 02/18/2022 Appointment Infusion Therapy 03/09/2022 Office Visit Hematology and Oncology Dayanna Roman NP [address] [phone] (Wo rk) documented as of this encounter Procedures Procedure Name Priority Date/Time Associated Diagnosis Comme nts SURGICAL PATHOLOGY Routine 12/19/2011 0:00 EDT Re sults for this procedure are i n the results section. documented in this encounter Results SURGICAL PATHOLOGY (12/19/2011 0:00 EDT) Pathology Report: SURGICAL PATHOLOGY REPORT [facility] Reports generated via electronic interface contain esperanza ginal data; LAB however they are lacking the format of the original re port. Caution should be taken when reading/interpreting unfo rmatted reports. Name: ? JONG ROBERTSON ? Accession #: ? [id number] ? : ? 1960 (Age: 51) ??M ? Collect Date: ? 12/19/2011 ? Location: ? [facility] ? Receive Date: ? 012 ? Provider: MARÍA ALICIA MD Copy to: ? Final Pathologic Diagnosis: ? Skin of face, left, excision: 1. ?Basal cell carcinoma, nodular type. ? - Margins of excision negative, but close. ??- Basal cell carcinoma measures within 0.1 mm of th e nearest peripheral margin. ??- Basal cell carcinoma measures approximately 0.2 m m to the deep margin. Document reviewed and electronically signed by: LINDSAY MAGANA MD Report ??Date: 12/21/2011 16:53 By the signature above, the attending physician certif ies that he/she has personally conducted a gross and/or microscopic examin ation of the described specimens and rendered or confirmed the above diagnosi s. Specimen(s) Received: ? L facial lesion elliptical excision Clinical History: ? Irregular shape, raised edges present x>1 year; irritated cyst vs BCC Gross Description: ? Received in formalin labelled Jong Robertson and Giuliana facial lesion is an unoriented elliptical excision of hollingsworth-wh ite skin measuring 1.1 x 0.6 cm and is excised to a depth of 0.2 cm . ??There is an eccentric 0.5 x 0.4 by less than 0.1 cm ovoid hollingsworth-hidalgo and smooth , focally ulcerated papule. ??The margins are inked. The specimen is serially sectioned and entirely submit halima as (A1) central sections and (A2) tips, reverse en face. Rodrigo Arias)/mpl End of Report Specimen Performing Organization Address City/State/ZIP Code Phon e Number [facility] [address] [place] [phone] SERVICES [facility] [address] [place] [phone] documented in this encounter Visit Diagnoses Not on filedocumented in this encounter
--- OUTSIDE RECORDS SUMMARY | 2022-01-24 10:51 | XMS_ITS | Encounter Summary ---
:1960 Author Organization [facility] Address [address] [place] [address] Care Team Providers Name Role Phone Unavailable Primary Care Provider Unavailable Encounter Details Date Type Department Care Team Description 01/01/2008 Before [facility] - María Molina MD Converted Visit [facility] [address] [place] [address] [address] [place] [address] (Wo rk) Social History Tobacco Use Types [...] Oncology Henrik Marquez MD 111 [facility] 2 [place] [phone] (Wo rk) 02/04/2022 Appointment Infusion Therapy 02/11/2022 Phlebotomy Only Hematology and Oncology Blood Doctor, [facility] Hem Onc 02/11/2022 Appointment Infusion Therapy 02/18/2022 Phlebotomy Only Hematology and Oncology Blood Doctor, [facility] Hem Onc 02/18/2022 Appointment Infusion Therapy 03/09/2022 Office Visit Hematology and Oncology Dayanna Roman, ARCHITECT MARINE [address] [place] [address] venue [facility], [facility], Level [address] [place] [phone] (Wo rk) documented as of this encounter Procedures Procedure Name Priority Date/Time Associated Diagnosis Comme nts SURGICAL PATHOLOGY Routine 01/01/2008 0:00 EDT Re sults for this procedure are i n the results section. documented in this encounter Results SURGICAL PATHOLOGY (01/01/2008 0:00 EDT) Pathology Report: SURGICAL PATHOLOGY REPORT ? [facility]IM[facility] Reports generated via [employer]ick[employer] interface contain original data; ? LAB however they are lacking the format of the original report. ? Caution should be taken when reading/interpreting unformatted reports. ? Name: ? JONG ROBERTSON ? Accession #: ? [id number] ? : ? 1960 (Age: 47) ??M ? Collec t Date: ? 01/01/2008 ? Location: ? [facility] ? R eceive Date: ? 01/02/2008 ? Provider: MARÍA READY MD ? Copy to: ? Final Pathologic Diagnosis: ? Skin of suborbital/pe rinasal region, right, punch biopsy: ? - Sebaceous hyperplasia. ? Microscopic Description: ? The epidermis is rela tively unremarkable except for a diminished rete ridge pattern. ??There is a dilate d follicular infundibulum. ??The follicle is ? associated with an increased number of sebaceous glands, some of which are ? located immediately beneath the epidermis. ??The sebaceous glands have a normal ?? morphology with mature seboc ytes. ??(Dr. Kevin)/klb ? Document reviewed and electr onically signed by: ? Arlyn Kevin MD ? Report ??Date: 01/03/2008 16 :49 ? By the signature above, the attending physician certifies that he/she has ? personally conducted a gross and/or microscopic examination of the described ? specimens and rendered or co nfirmed the above diagnosis. ? Specimen(s) Received: ? R suborbital/perinasa l lesion 3 mm x 5 mm ? Clinical History: ? Pearly-edged (+) sun exposure; ? BCC ? Gross Description: ? Received in formalin labelled Dinorah and facial skin biopsy is a punch ?? biopsy of skin which measure s 0.4 cm in diameter and 0.3 cm in depth. ??The ? cutaneous surface is hollingsworth-whi te and scaly. ??Bisected and submitted as one ? cassette. ??(Dr. Jaramillo)/mms ? End of Report ? Specimen Performing Organization Address City/State/ZIP Code Phon e Number [facility] [address] [place] [address] SERVICES [facility] [address] [place] [address] documented in this encounter Visit Diagnoses Not on filedocumented in this encounter
--- NOTE | 2022-01-24 14:05 | DI.RAD_ITS ---
Exam(s) XR CHEST 2V PA LATERAL EXAM: XR CHEST 2V PA LATERAL CLINICAL HISTORY: Pulmonary Embolism-I26.99, Uftnw59-S25.1, Pneumonia-J18.9 TECHNIQUE: 2D digital imaging was performed. COMPARISON: CT CT CHEST PE CTA from 01/06/2022 FINDINGS: HEART: Normal size. Aorta: PULMONARY VASCULATURE: Normal. LUNGS: Clear. PLEURAL SPACE: No pleural effusion or pneumothorax. BONE:Unremarkable for age. IMPRESSION: No acute abnormality. DATA REPOSITORY: RADIATION DOSE DELIVERED:
== END ==
PROVIDERS: PCP Specialist/Technologist Athletic Trainer; Visit Provider Internal Medicine
DX: I26.99 Other pulmonary embolism without acute cor pulmonale (principal); J18.9 Pneumonia, unspecified organism; U07.1 COVID-19
CPT/HCPCS: 71046

== ENCOUNTER 2022-04-15 15:50 | Outpatient (REF) | payer SELFPAY ==
[2022-04-17 01:04] LABS: Influenza A RNA Result Positive (Negative); Influenza B RNA Result Negative (Negative)
[2022-04-17 10:42] LABS: RSV RNA Result Positive (Negative)
== END 2022-04-15 15:51 | disposition home or self-care (01) ==
LOC: NCHCN 15:50
PROVIDERS: PCP Specialist/Technologist Athletic Trainer; Visit Provider Nurse Practitioner Family
DX: R05.1 Acute cough (principal)
CPT/HCPCS: 87631

== ENCOUNTER 2022-11-07 15:36 | Emergency (ER) | payer BC, SELFPAY ==
[2022-11-07 15:42] VITALS: BP 146/90; PULSE 80; RESP 18; TEMP 37; O2SAT 99
--- NOTE | 2022-11-07 16:00 | DI.RAD_ITS ---
Exam(s) XR CHEST 2V PA LATERAL EXAM: XR CHEST 2V PA LATERAL CLINICAL HISTORY: cough TECHNIQUE: 2D digital imaging was performed of the chest. Two images were obtained. PA and lateral views were obtained. COMPARISON: CR XR CHEST 2V PA LATERAL from 01/24/2022 FINDINGS: MEDIASTINUM: Normal. HEART: Normal. PULMONARY VASCULATURE: Normal. LUNGS: No focal consolidating infiltrates. PLEURAL SPACE: No pleural effusion or pneumothorax. BONE:Within normal limits for the patient's age. OTHER FINDINGS:Normal. IMPRESSION: No acute pulmonary findings. DATA REPOSITORY: RADIATION DOSE DELIVERED:
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
[2022-11-07 16:14] VITALS: RESP 1
[2022-11-07] MEDS: Albuterol/Ipratropium 3 ML UPD VIAL UPD (16:14)
[2022-11-07 17:31] VITALS: BP 123/83; PULSE 96; RESP 20; O2SAT 96
== END 2022-11-07 18:27 | disposition home or self-care (01) ==
PROVIDERS: Emergency Provider Nurse Practitioner Family; PCP Physician Assistant Medical
DX: R05.9 Cough, unspecified (principal); R06.2 Wheezing; Z86.711 Personal history of pulmonary embolism; Z79.01 Long term (current) use of anticoagulants
CPT/HCPCS: 94640; 99283; 71046; J7620

== ENCOUNTER 2022-12-12 15:19 | Outpatient (REF) | payer BC, SELFPAY ==
--- NOTE | 2022-12-12 14:30 | SKI_PTH ---
PATIENT: Jong Copeland LOC: [facility]#:[id number] AGE/SX: 62/M ROOM: RE12/12/[address]: Shreya Carrera : 1960 BED: DIS: 12/12/2022 SPEC #: [id number] RECD: 12/12/22 18:35 STATUS: [place] #: [id number] AYDEN: 12/12/22 14:[address]: Shreya Carrera DEPT: Surgical Specimen RECD BY: Marj Junior ENTERED: 12/12/22 18:36 SP TYPE: NAMRATA DOOLEY DR: Esau Serrano Tissues: 1 - SKIN BIOPSY(SHAVE/PUNCH) Procedures: SKIN LEVEL 4 Comments: [id number]
== END 2022-12-12 15:20 | disposition home or self-care (01) ==
LOC: NCHCN 15:19
PROVIDERS: PCP Physician Assistant Medical; Visit Provider Family Medicine
DX: L92.8 Other granulomatous disorders of the skin and subcutaneous tissue (principal); L73.8 Other specified follicular disorders
CPT/HCPCS: 88305

== ENCOUNTER 2023-02-17 14:55 | Emergency (ER) | payer BC, SELFPAY ==
--- NOTE | 2023-02-17 15:00 | DI.US_ITS ---
Exam(s) US LOWER EXTREMITY VENOUS LT EXAM: US LOWER EXTREMITY VENOUS LT CLINICAL HISTORY: left leg pain and swelling, hx DVT. TECHNIQUE: Lower extremity venous ultrasound performed using grayscale, color-flow, and spectral Do ppler analysis. COMPARISON: No exams were available for comparison FINDINGS: The common femoral, profundus femoral and superficial femoral veins demonstrate normal compressibilit y, augmentation, and color Doppler.The popliteal vein shows thrombus which extends into 1 of the pair ed posterior tibial veins. No saphenous vein thrombosis or other superficial venous thrombosis is se en. No hematoma or Mejia's cyst is seen. IMPRESSION: Deep venous thrombosis in the popliteal and 1 of the posterior tibial veins. DATA REPOSITORY:
[2023-02-17 15:07] VITALS: BP 197/102; PULSE 85; RESP 18; TEMP 37.1; O2SAT 96
--- NOTE | 2023-02-17 15:30 | ED.GENADUL_ITS ---
Discharge Plan Disposition Patient Disposition: Home Condition: Stable Discharge Details Chief Complaint: Cellulitis Clinical Impression: DVT (deep venous thrombosis) Primary Care Provider: Esau Serrano ED Provider: Carrie Wheeler Home Meds and New Rx's Prescriptions: No Action apixaban 5 mg (74 tabs) tablets,dose pack 5 mg PO ONCE Qty: 74 0RF Rx Instructions: two tabs (10 mg) po bid x 7d, then one tab (5 mg) po bid spironolactone 25 mg tablet 25 mg PO DAILY Patient Comments: TAKE 1 TABLET BY MOUTH ONCE DAILY prednisone 20 mg tablet 40 mg PO DAILY Qty: 8 0RF albuterol sulfate 2.5 mg/0.5 mL solution for nebulization 5 mg inhalation Q4H PRN (Reason: shortness of breath or wheezing) Qty: 30 0RF Eliquis 5 mg Tablet 5 mg Discharge Instructions Instructions: Deep Vein Thrombosis (ED), Deep Vein Thrombosis Prevention (ED) Additional Instructions: Resume Eliquis. Start taking 10 mg of Eliquis twice a day for 1 week. Then take 5 mg of Eliquis twice a day. Please follow-up with your doctor to determine length of treatment. Return if you develop any significant chest pain or shortness of breath. Referrals: Esau Serrano PA [Primary Care Provider] - Discharge Data Discharge Physician: Carrie Wheeler Medical Decision Making 63-year-old male with history of sarcoidosis and prior blood clot presents for evaluation of left leg pain and swelling. US positive for DVT. Patient is not tachycardic or hypoxic. No chest pain or shortness of breath. Do not feel that PE study is warranted at this time. He understands that he needs to restart on his blood thinner. Laboratory studies show no persistently elevated white count. No anemia. Creatinine 1.4. No significant electrolyte abnormality. Patient is instructed on appropriate dosing of Eliquis. He does have Eliquis at home and does not need a prescription at this time. He will follow-up with primary care and understands indications to return. HPI General Date/Time Provider Initiated Documentation: 02/17/23 14:56 . HPI Narrative: 63-year-old male with history of sarcoidosis and blood clots presents for evaluation of left leg pain and swelling. He states over the last 4 to 5 days he has noted some increased pain and swelling in his left leg. Denies any known trauma. The pain is worse when attempting to get up and ambulate. He denies any chest pain or shortness of breath. He does have a history of prior blood clot. He states that he took blood thinners for about 4 months. They were discontinued about 4 months ago secondary to easy bleeding when cutting his skin. States he does have a history of muscle cramps and has had increased cramping in his muscles over the last week. Related Data Home Medications Medication Instructions Recorded Confirmed apixaban 5 mg (74 tabs) tablets in 5 mg PO ONCE #74 dose pk 01/10/22 11/07/22 a dose pack albuterol sulfate 2.5 mg/0.5 mL 5 mg inhalation Q4H PRN shortness 11/07/22 solution for nebulization of breath or wheezing #30 ea apixaban 5 mg tablet (Eliquis) 5 mg 11/07/22 prednisone 20 mg tablet 40 mg (2 x 20 mg) PO DAILY #8 tabs 11/07/22 spironolactone 25 mg tablet 25 mg PO DAILY 11/07/22 11/07/22 Previous Rx's Medication Instructions Recorded apixaban 5 mg (74 tabs) tablets in 5 mg PO ONCE #74 dose pk 01/10/22 a dose pack albuterol sulfate 2.5 mg/0.5 mL 5 mg inhalation Q4H PRN shortness 11/07/22 solution for nebulization of breath or wheezing #30 ea prednisone 20 mg tablet 40 mg (2 x 20 mg) PO DAILY #8 tabs 11/07/22 Allergies Allergy/AdvReac Type Severity Reaction Status Date / Time No Known Allergies Allergy Unverified 01/06/22 22:16 General Stated Complaint: Cellulitis BETO: 3 Review of Systems Narrative: Remainder of review of systems otherwise negative except present on the HPI x5. 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) Fatty liver Basal cell carcinoma of face Kidney stone Essential hypertension Family History Father Personal history of malignant neoplasm Mesothelioma Social History Smoking/Tobacco Use Status: Never Smoking risk assessment performed?: Yes Alcohol Intake: never Drug use: Never Housing: house Do you feel safe at home: Yes Do you feel safe in your relationship?: Yes Exam Narrative Exam Narrative: General: non-toxic, no respiratory distress, comfortable HEENT: normocephalic, atraumatic, lids and lashes normal, PERRL, EOMI, anicteric sclera, no conjunctival injection, moist oral mucosa Card: regular rate and rhythm, S1S2, no murmurs, rubs, or gallops Lungs: good air entry, clear to auscultation bilaterally. no wheezes, rales, rhonchi, or retractions Abd: soft, non-tender, non-distended, normal bowel sounds, no rebound or guarding, no peritoneal signs Musculoskeletal: Swelling to left calf when compared to right, no significant erythema or warmth, diffusely tender to palpation of the left posterior calf, no pain popliteal fossa, otherwise full range of motion of arms and legs, no tenderness to palpation. no clubbing, cyanosis, or edema Neurologic: appropriate for age, strength normal Psych: alert and oriented Skin: no petechiae, no lesions, warm and dry Course Vital Signs Vital signs: Vital Signs Temperature 37.1 C 02/17/23 15:07 Pulse 85 02/17/23 15:07 Respiratory Rate 18 02/17/23 15:07 Blood Pressure 197/102 H 02/17/23 15:07 Pulse Oximetry 96 02/17/23 15:07 Temperature 37.1 C 02/17/23 15:07 Pulse 85 02/17/23 15:07 Respiratory Rate 18 02/17/23 15:07 Respiratory Effort Normal, Non-Labored 02/17/23 15:11 Blood Pressure 197/102 H 02/17/23 15:07 Pulse Oximetry 96 02/17/23 15:07 Oxygen Delivery Method Room Air 02/17/23 15:07 Oxygen Flow Rate 0 02/17/23 15:07 Pain Level 3 02/17/23 15:07 PAWSS Have you Been Recently Intoxicated or Drunk Within the Last 30 days?: No Have you Ever Experienced Previous Episodes of Alcohol Withdrawal?: No Have you ever Experienced Withdrawal Seizures?: No Have you ever Experienced Delirium Tremens(DT)s?: No Have you ever undergone Alcohol Rehabilitation Treatment (i.e, inpt ot outpatient treatment programs)?: No Have you ever Experienced Blackouts?: No Have you ever Combined Alcohol with other Downers within the last 90 days?: No Have you ever Combined Alcohol with any other Substance of Abuse during the last 90 days?: No Result: 0
[2023-02-17 15:59] LABS: Abs Immature Grans 0.19 10^3/uL (0.0-0.06); Absolute Basophil Count 0.07 10^3/uL (0.0-0.2); Absolute Neutrophil Count 15.99 10^3/uL (1.2-6.7); Basophils % 0.4; Eosinophils % 0.1; HCT 38.5 % (40.0-50.0); HGB 12.8 g/dL (13.5-17.5); Immature Grans % 1.1; Lymphocytes % 3.5; MCHC 33.2 % (32.0-36.0); MCV 87 fL (80-95); MPV 9.2 fL (8.0-11.0); Monocytes % 3.4; Neutrophils % 91.5; Platelet Count 228 10^3/uL (130-400); RBC 4.42 10^6/uL (4.36-5.78); RDW 12.6 % (11.8-14.1); RDW-SD 40.1 fL; WBC 17.48 10^3/uL (4.4-10.8)
[2023-02-17 16:05] LABS: Absolute Eosinophil Count 0.02 10^3/uL (0.0-0.7); Absolute Lymphocyte Count 0.61 10^3/uL (1.2-3.4); Absolute Monocyte Count 0.59 10^3/uL (0.1-0.8)
[2023-02-17 16:12] LABS: Prothrombin Time 10.5 sec (9.1-11.1)
[2023-02-17 16:28] LABS: ALT 22 U/L (16-63); AST 23 U/L (15-37); Albumin 2.7 g/dL (3.4-5.0); Alkaline Phosphatase 65 U/L (46-116); Anion Gap 10.1 mmol/L (3-11); BUN 33 mg/dL (7-18); Bilirubin, Total 0.5 mg/dL (0.2-1.0); CO2 23.9 mmol/L (21.0-32.0); CREATININE 1.4 mg/dL (0.70-1.30); Calcium 8.8 mg/dL (8.5-10.1); Chloride 104 mmol/L (98-107); Estimated GFR 56.83 (mL/min/1.73m2); Glucose 121 mg/dL (74-106); Magnesium 2.2 mg/dL (1.8-2.4); Sodium 138 mmol/L (136-145); Total Protein 5.9 g/dL (6.4-8.2)
[2023-02-17] MEDS: Apixaban 5 MG TAB 10 MG PO (16:57)
== END 2023-02-17 17:12 | disposition home or self-care (01) ==
PROVIDERS: Emergency Provider Emergency Medicine Emergency Medical Services; PCP Physician Assistant Medical
DX: I82.402 Acute embolism and thrombosis of unspecified deep veins of left lower extremity (principal)
CPT/HCPCS: 80053; 99283; 83735; 85025; 85610; 93971

== ENCOUNTER 2023-05-25 04:17 | Outpatient (CLI) | payer BC, SELFPAY ==
[2023-05-25 09:15] LABS: Magnesium 1.9 mg/dL (1.8-2.4); Vitamin B12 588 pg/mL (193-986)
[2023-05-25 09:38] LABS: Iron 87 ug/dL (65-175); Total Iron Binding Capacity 242 ug/dL (250-450); Transferrin Sat 36 % (20-55)
[2023-05-25 17:05] LABS: Ionized Calcium 1.11 mmol/L (1.14-1.35)
== END 2023-05-25 04:18 | disposition home or self-care (01) ==
LOC: LBO 04:17
PROVIDERS: PCP Physician Assistant Medical; Visit Provider Naturopath
DX: R25.2 Cramp and spasm (principal)
CPT/HCPCS: 36415; 82330; 82607; 82746; 83540; 83550; 83735

== ENCOUNTER 2023-10-04 01:56 | Outpatient (CLI) | payer BC, SELFPAY ==
[2023-10-04 08:39] LABS: Hemoglobin A1C 5.3 % (<5.7)
[2023-10-04 08:44] LABS: ALT 34 U/L (16-63); AST 25 U/L (15-37); Alkaline Phosphatase 74 U/L (46-116); Anion Gap 6.4 mmol/L (3-11); BUN 32 mg/dL (7-18); Bilirubin, Total 0.8 mg/dL (0.2-1.0); CO2 29.6 mmol/L (21.0-32.0); CREATININE 1.3 mg/dL (0.70-1.30); Calcium 8.7 mg/dL (8.5-10.1); Calculated LDL 159 mg/dL (<100); Chloride 107 mmol/L (98-107); Cholesterol 232 mg/dL (<200); Estimated GFR 62.11 (mL/min/1.73m2); Glucose 112 mg/dL (74-106); HDL Cholesterol 43 mg/dL (40-60); Potassium 4.4 mmol/L (3.5-5.1); Sodium 143 mmol/L (136-145); Total Protein 6.2 g/dL (6.4-8.2); Triglyceride 153 mg/dL (<150)
[2023-10-04 17:15] LABS: CRP, High Sensitivity 1.16 mg/L (See Note)
[2023-10-04 18:01] LABS: Homocysteine 18.5 umol/L (5.0-13.9)
== END 2023-10-04 01:57 | disposition home or self-care (01) ==
LOC: LBO 01:56
PROVIDERS: PCP Physician Assistant Medical; Visit Provider Naturopath
DX: E78.5 Hyperlipidemia, unspecified (principal)
CPT/HCPCS: 36415; 80053; 80061; 83090; 86141; 83036; 83516

== ENCOUNTER 2025-03-25 11:41 | Outpatient (REF) | payer BC, SELFPAY ==
[2025-03-25 17:09] LABS: HCT 43.7 % (40.0-50.0); HGB 14.2 g/dL (13.5-17.5); MCH 28.9 pg (27.0-33.0); MCHC 32.5 % (32.0-36.0); MCV 89 fL (80-95); MPV 11.0 fL (8.0-11.0); Platelet Count 223 10^3/uL (130-400); RBC 4.91 10^6/uL (4.36-5.78); RDW 12.6 % (11.8-14.1); RDW-SD 41.5 fL; WBC 10.76 10^3/uL (4.4-10.8)
[2025-03-25 17:24] LABS: Magnesium 2.1 mg/dL (1.6-2.6)
[2025-03-25 17:25] LABS: ALT 30 U/L (10-49); AST 29 U/L (<34); Albumin 3.8 g/dL (3.2-5.0); Alkaline Phosphatase 69 U/L (46-116); Anion Gap 9.2 mmol/L (3-11); BUN 39 mg/dL (9-23); Bilirubin, Total 0.60 mg/dL (0.2-1.2); CO2 25.8 mmol/L (20.0-31.0); Calcium 8.9 mg/dL (8.3-10.6); Chloride 108 mmol/L (98-107); Cholesterol 228 mg/dL (<200); Glucose 85 mg/dL (74-106); HDL Cholesterol 44 mg/dL (>40); Potassium 4.7 mmol/L (3.5-5.1); Sodium 143 mmol/L (136-145); Total Protein 5.9 g/dL (5.7-8.2)
== END 2025-03-25 11:42 | disposition home or self-care (01) ==
LOC: NCHCN 11:41
PROVIDERS: PCP Physician Assistant Medical; Visit Provider Physician Assistant Medical
DX: Z79.01 Long term (current) use of anticoagulants (principal); I10 Essential (primary) hypertension; R79.89 Other specified abnormal findings of blood chemistry
CPT/HCPCS: 80053; 80061; 84403; 85027; 83735